=== PATIENT | female | born 1955 ===

== ENCOUNTER 2016-10-08 01:30 | Inpatient (IN) | payer MEDICAID ==
[2016-10-08 01:30] VITALS: BMI 42.7
[2016-10-08] MEDS ORDERED: Naloxone 0.4 mg/ml Inj (Adult) ONE (01:37)
--- NOTE | 2016-10-08 01:48 | C.PDOC ---
History Of Present Illness Patient is a 61 year old female brought in by EMS with altered mental status. Patient was reported to have had a headache earlier along with vomiting, as per family. Patient is agitated and kicking in the ER. Patient has not verbalized any physical complaints at this time. Chief Complaint (Nursing): Altered Mental Status History Per: EMS, Family History/Exam Limitations: None Onset/Duration Of Symptoms: Hrs Current Symptoms Are (Timing): Still Present Usual Baseline: Unknown Exacerbating Factor(s): Unknown Use Of Anticoag/Antiplatelets: Unknown Speech Is: Normal Recent travel outside of the [place]: No Associated Symptoms: Confused, Agitated Past Medical History Reviewed: Historical Data, Nursing Documentation, Vital Signs Vital Signs: Last Vital Signs Temp Pulse 126 H 10/08/16 01:30 Resp 28 H 10/08/16 01:30 BP 168/70 H 10/08/16 01:30 Pulse Ox 88 L 10/08/16 05:45 - Medical History PMH: Anemia, Anxiety, Arthritis, Asthma, CHF, COPD, Depression, Diabetes, HTN, Hypercholesterolemia, Migraine Surgical History: ( x 1) - [facility] Procedures D & C NEC (10/03/14) INJECT/INFUSE NEC (03/03/13) INSPECTION OF BLADDER, ENDO (08/11/15) NEBULIZER THERAPY (03/03/13) RESECTION OF CERVIX, VIA NATURAL OR ARTIFICIAL OPENING (08/11/15) RESECTION OF UTERUS, VIA OPENING W PERC ENDO (08/11/15) ROBOTIC ASSISTED PROCEDURE OF TRUNK, PERC ENDO APPROACH (08/11/15) Family History: States: Unknown Family Hx - Social History Hx Tobacco Use: No Hx Alcohol Use: No Hx Substance Use: No Review Of Systems Constitutional: Negative for: Fever, Chills Gastrointestinal: Negative for: Nausea Neurological: Positive for: Altered Mental Status Physical Exam - Physical Exam Appears: Non-toxic, Agitated, Confused Skin: Normal Color, Warm, Dry Head: Atraumatic, Normacephalic Eye(s): bilateral: Normal Inspection, PERRL, EOMI Oral Mucosa: Moist Neck: Normal, Supple Chest: Symmetrical, No Tenderness Cardiovascular: Rhythm Regular, No Murmur Respiratory: Normal Breath Sounds, No Rales, No Rhonchi, No Wheezing Gastrointestinal/Abdominal: Soft, No Tenderness Extremity: Normal ROM (x4), No Tenderness, No Deformity, No Swelling Neurological/Psych: Normal Motor, Normal Sensation ED Course And Treatment - Laboratory Results Result Diagrams: 10/08/16 03:29 10/08/16 03:29 Lab Interpretation: Abnormal Interpretation Of Abnormal: marked leucocytosis Urine POC: Negative ECG: Interpreted By Me, Viewed By Me ECG Rhythm: Sinus Tachycardia, Nonspecific Changes ECG Interpretation: No Acute Changes, Abnormal Interpretation Of ECG: Sinus tachycardia, non-spc. St-T changes, abnormal tracings. Rate From EC O2 Sat by Pulse Oximetry: 88 Pulse Ox Interpretation: Abnormal - CT Scan/US Head CT w/o contrast Other Rad Studies (CT/US): Read By Radiologist, Radiology Report Reviewed CT/US Interpretation: IMPRESSION: 1. No definite acute intracranial abnormality. Acute infarction may be CT occult within first 24 hours. If a focal deficit persists, consider followup CT or MRI for further evaluation. 2. Sinus disease. 3. Incidental/non-acute findings are described above. CT chest w/o contrast Other Rad Studies (CT/US): Read By Radiologist, Radiology Report Reviewed CT/US Interpretation: IMPRESSION: 1. Dependent atelectasis. Superimposed pneumonia not excluded. 2. Incidental/non-acute findings are described above. CT abd/pel w/o contrast Other Rad Studies (CT/US): Read By Radiologist, Radiology Report Reviewed CT/US Interpretation: IMPRESSION: 1. Diverticulosis without definite CT evidence of diverticulitis. 2. Cirrhosis. 3. Gallstones. 4. Kidney lesion, indeterminate. Recommend nonemergent ultrasound or MRI. 5. Incidental/non- acute findings are described above. Progress Note: CT of head w/o contrast, CT chest w/o contrast, CT abd/pel w/o contrast and CXR ordered. Intubation attempted with success, Anesthesia was called for assistance. ET tube began to leak, intubation was attempted again with success. Discussed with Dr. Goldstein, agreed to admit patient to ICU. NIHSS Stroke Scale - Date/Time Evaluation Performed Date Performed: 10/08/16 Time Performed: 01:40 When Was NIHSS Performed: Baseline - How Severe is the Stoke Level of Consciousness: 1=Drowsy LOC to Questions: 2=Neither correct LOC to commands: 2=Neither correct Visual: 0=No visual loss Facial: 0=Normal Motor Arm - Left: 0=No drift Motor Arm - Right: 0=No drift Motor Leg - Left: 0=No drift Motor Leg - Right: 0=No drift Limb Ataxia: 0=Absent Sensory: 0=Normal Best Language: 0=No aphasia Dysarthia: 2=Severe, near unintelligible or worse Extinction & Inattention (Neglect): 0=Normal, no object Severity Of Stroke: 0= No Stroke Disposition Discussed With DrEmily: Be Goldstein Jr. Doctor Will See Patient In The: Hospital Counseled Patient/Family Regarding: Diagnosis - Disposition Disposition: HOSPITALIZED Disposition Time: 05:43 Condition: CRITICAL - POA Present On Arrival: None - Clinical Impression Clinical Impression: Sepsis, Pneumonia, Acute confusional state - Scribe Statement The provider has reviewed the documentation as recorded by the Scribjaney Bradford All medical record entries made by the Rachelibjaney were at my direction and personally dictated by me. I have reviewed the chart and agree that the record accurately reflects my personal performance of the history, physical exam, medical decision making, and the department course for this patient. I have also personally directed, reviewed, and agree with the discharge instructions and disposition.
[2016-10-08] MEDS ORDERED: Propofol 10 mg/ml Inj (20 ML) ONE ×2 (02:22→02:46)
[2016-10-08] MEDS ORDERED: Propofol 10 mg/ml Inj (20 ML) IVP ONE ×3 (02:47→04:39)
[2016-10-08 03:26] LABS: CHLORIDE 98 mmol/L (98-107)
[2016-10-08 03:27] LABS: SODIUM 138 mmol/L (132-148)
[2016-10-08 03:28] LABS: BASO # 0.1 K/uL (0.0-0.2); BASO % 0.5 % (0.0-2.0); EOS % 0.2 % (0.0-4.0); HEMATOCRIT 39.4 % (34.0-47.0); LYMPH # 2.1 K/uL (1.0-4.3); LYMPH % 8.4 % (20.0-40.0); MEAN CELL VOLUME 88.8 fL (81.0-99.0); MEAN CORPUSCULAR HEMOGLOBIN 29.3 pg (27.0-31.0); MEAN PLATELET VOLUME 8.8 fL (7.2-11.7); MONO % 4.3 % (0.0-10.0); PLATELET COUNT 291 K/uL (130-400); RED CELL DISTRIBUTION WIDTH 13.8 % (11.5-14.5); WHITE BLOOD COUNT 24.5 K/uL (4.8-10.8)
[2016-10-08 03:30] LABS: ALB/GLOB RATIO 1.1 (1.0-2.1); ALKALINE PHOSPHATASE 105 U/L (38-126); ALT/SGPT 40 U/L (9-52); AST/SGOT 82 U/L (14-36); BILIRUBIN,TOTAL 1.4 mg/dL (0.2-1.3); BLOOD UREA NITROGEN 29 mg/dL (7-17); CALCIUM 10.6 mg/dl (8.6-10.4); CARBON DIOXIDE 23 mmol/L (22-30); GFR AFRICAN-AMERICAN > 60; GLUCOSE,RANDOM 209 mg/dL (65-105); TOTAL PROTEIN 8.8 g/dL (6.3-8.3)
[2016-10-08 03:37] LABS: POTASSIUM 5.3 mmol/L (3.6-5.2)
[2016-10-08] MEDS ORDERED: cefTRIAXone IV 1 gm in Dextros 50 ML IVPB ONE (04:03)
[2016-10-08] MEDS ORDERED: Lidocaine 2% Jelly (Uro-Jet) ONE (04:07)
[2016-10-08] MEDS ORDERED: Sodium Chloride 0.9% 1,000 ML ONE ×2 (04:11→04:44)
[2016-10-08 04:31] LABS: VENOUS BLOOD GAS BASE EXCESS 1.4 mmol/L (0.0-2.0); VENOUS BLOOD GAS PCO2 52 mmHg (40-60); VENOUS BLOOD PH 7.34 (7.32-7.43)
[2016-10-08 04:31] LABS: RBC URINE 6 /hpf (0-3); URINE BILIRUBIN NEGATIVE (NEGATIVE); URINE BLOOD 1+ (NEGATIVE); URINE COLOR Yellow (YELLOW); URINE GLUCOSE (UA) 1+ mg/dL (Normal); URINE KETONE NEGATIVE (NEGATIVE); URINE LEUKOCYTE ESTERASE NEG Leu/uL (Negative); URINE PROTEIN 1+ mg/dL (NEGATIVE); URINE UROBILINOGEN NORMAL mg/dL (0.2-1.0); WBC URINE 2 /hpf (0-5)
[2016-10-08 04:35] LABS: EOSINOPHIL 1 % (0-4); NEUTROPHIL 84 % (50-75); TOTAL CELLS COUNTED 100
[2016-10-08] MEDS ORDERED: Propofol 10 mg/ml 1,000 MG/100 ML VIAL ONE (04:37)
--- NOTE | 2016-10-08 05:13 | CT ---
EXAM: CT Head Without Intravenous Contrast CLINICAL HISTORY: 61 years old, female; Pain and signs and symptoms; Altered mental status/memory loss and other: Vomiting and gi bleed, unresponding; Headache TECHNIQUE: Axial computed tomography images of the head/brain without intravenous contrast. This CT exam was performed using one or more of the following dose reduction techniques: automated exposure control, adjustment of the mA and/or kV according to patient size, and/or use of iterative reconstruction technique. COMPARISON: No relevant prior studies available. FINDINGS: Limitations: Motion artifact - mild. Brain: No definite intracranial hemorrhage. No mass. No definite edema. Ventricles: No hydrocephalus. Bones/joints: No acute fracture. Soft tissues: Unremarkable. Vasculature: Mild atherosclerotic disease of intracranial arteries. Sinuses: Near complete opacification of RIGHT frontal sinus. Scattered [id number] mucosal thickening of ethmoid sinuses. Scattered minimal mucosal thickening of remaining sinuses. RIGHT maxillary retention cyst. Mastoid air cells: No mastoid effusion. Orbits: Unremarkable as visualized. Tubes, lines and devices: Nasogastric tube. Endotracheal tube. IMPRESSION: 1. No definite acute intracranial abnormality. Acute infarction may be CT occult within first 24 hours. If a focal deficit persists, consider followup CT or MRI for further evaluation. 2. Sinus disease. 3. Incidental/non-acute findings are described above.
[2016-10-08] MEDS: Propofol 10 mg/ml 1,000 MG/100 ML VIAL IV PRN ×3 (05:15→15:10)
--- NOTE | 2016-10-08 05:26 | CT ---
EXAM: CT Chest Without Intravenous Contrast CLINICAL HISTORY: 61 years old, female; Pain and signs and symptoms; Vomiting; Abdominal pain; Other: Unrespond; Chest pain; Type not specified; Additional info: Vomiting/ gi bleed TECHNIQUE: Axial computed tomography images of the chest without intravenous contrast. This CT exam was performed using one or more of the following dose reduction techniques: automated exposure control, adjustment of the mA and/or kV according to patient size, and/or use of iterative reconstruction technique. Coronal and sagittal reformatted images were created and reviewed. COMPARISON: No relevant prior studies available. FINDINGS: Limitations: Lack of intravenous contrast. Motion artifact - mild. Lungs: [id number] consolidation with air bronchograms within posterior periphery of lower lobes with associated volume loss. Minimal peripheral consolidation within posterior periphery of RIGHT upper lobe. Pleural space: No pneumothorax. No significant effusion. Heart: Mild cardiomegaly. No significant pericardial effusion. Bones/joints: No acute fracture. Degenerative changes of shoulders and spine. Soft tissues: Unremarkable. Vasculature: Minimal atherosclerotic disease of aorta. Aorta: No aortic aneurysm. Lymph nodes: No pathologically enlarged lymph nodes. Tubes, lines and devices: Nasogastric tube. Endotracheal tube. IMPRESSION: 1. Dependent atelectasis. Superimposed pneumonia not excluded. 2. Incidental/non-acute findings are described above. EXAM: CT Abdomen and Pelvis Without Intravenous Contrast CLINICAL HISTORY: 61 years old, female; Pain and signs and symptoms; Vomiting; Abdominal pain; Other: Unrespond; Chest pain; Type not specified; Additional info: Vomiting/ gi bleed TECHNIQUE: Axial computed tomography images of the abdomen and pelvis without intravenous contrast. This CT exam was performed using one or more of the following dose reduction techniques: automated exposure control, adjustment of the mA and/or kV according to patient size, and/or use of iterative reconstruction technique. Coronal and sagittal reformatted images were created and reviewed. COMPARISON: No relevant prior studies available. FINDINGS: Limitations: Lack of intravenous contrast. ABDOMEN: Liver: Lobulated contour. Gallbladder and bile ducts: Calcified gallstones. No ductal dilation. Pancreas: Unremarkable. No ductal dilation. Spleen: Borderline splenomegaly. Small splenic calcification. Adrenals: No mass. Kidneys and ureters: LEFT renal cyst. 1.3 x 1.4 x 1.3 cm lesion within LEFT kidney, indeterminate by CT criteria. Punctate calculus within LEFT kidney. No hydronephrosis. Stomach and bowel: Scattered diverticula within colon. No associated inflammatory stranding. Segmental areas of underdistention of colon. No definite mural thickening. No obstruction. Appendix: No findings to suggest acute appendicitis. PELVIS: Bladder: Santiago catheter. Collapsed bladder, limiting evaluation. No stones. Reproductive: Hysterectomy. ABDOMEN and PELVIS: Intraperitoneal space: No significant fluid collection. No free air. Bones/joints: Degenerative changes of spine. No acute fracture. Soft tissues: Small to moderate umbilical hernia containing fat. Mild focal skin thickening with subjacent stranding RIGHT anterolateral abdominal wall. Vasculature: Minimal atherosclerotic disease. No abdominal aortic aneurysm. Lymph nodes: No pathologically enlarged lymph nodes. IMPRESSION: 1. Diverticulosis without definite CT evidence of diverticulitis. 2. Cirrhosis. 3. Gallstones. 4. Kidney lesion, indeterminate. Recommend nonemergent ultrasound or MRI. 5. Incidental/non-acute findings are described above.
[2016-10-08] MEDS ORDERED: Azithromycin 500mg/250ML NS 500 MG/250 ML BAG IV STA (05:28)
--- NOTE | 2016-10-08 05:40 | CP.PCM.HP ---
History of Present Illness - History of Present Illness History of Present Illness: CC: Altered mental status 61 F with PMH of Asthma, Htn, HLD, DM was brought in by EMS for AMS. Patient's son was present at bedside. Patient's son stated that he came home aroound 830 pm and patient was fine watching TV. He stated around 930 pm that the patient began to complain of headache and nausea. Around 1030 pm, the son woke up after falling asleep to his mother wrenching and dry heaving in the kitchen. When he walked into the kitchen, he saw her vomiting on herself incoherently. At that time, he called 911 and EMS shortly arrived to transport her to [facility]. ROS unobtainable due to AMS and intubation. PMD: Dr. Walters PMH: Asthma, Htn, HLD, DM, Meds: As per EMR Allergies: Codeine, morphine, Avelox, Niacin, Penicillin, Tramadol PSH: C section, D&C x 2, Hysterectomy FH: Mother had breast ca, stroke; Brother has DM Social: Denies smoking, alcohol, and illicit drug use Present on Admission - Present on Admission Any Indicators Present on Admission: No History of DVT/PE: No History of Uncontrolled Diabetes: No Urinary Catheter: No Decubitus Ulcer Present: No Review of Systems - Review of Systems Systems not reviewed;Unavailable: Altered Mental Status, Intubated Past Patient History - Infectious Disease Hx of Infectious Diseases: None - Tetanus Immunizations Tetanus Immunization: Unknown - Past Medical History & Family History Past Medical History?: Yes - Past Social History Smoking Status: Never Smoked - CARDIAC Hx Congestive Heart Failure: Yes Hx Hypercholesterolemia: Yes Hx Hypertension: Yes - PULMONARY Hx Asthma: Yes Hx Chronic Obstructive Pulmonary Disease (COPD): Yes - NEUROLOGICAL Hx Migraine: Yes - HEENT Hx HEENT Problems: Yes (Allergic Rhinitis) - RENAL Hx Chronic Kidney Disease: No - ENDOCRINE/METABOLIC Hx Endocrine Disorders: Yes Hx Diabetes Mellitus Type 2: Yes (FROM EMS) - HEMATOLOGICAL/ONCOLOGICAL Hx Anemia: Yes - INTEGUMENTARY Hx Dermatological Problems: No - MUSCULOSKELETAL/RHEUMATOLOGICAL Hx Arthritis: Yes - GASTROINTESTINAL Hx Gastrointestinal Disorders: No - GENITOURINARY/GYNECOLOGICAL Hx Genitourinary Disorders: No - PSYCHIATRIC Hx Anxiety: Yes Hx Depression: Yes Hx Substance Use: No - SURGICAL HISTORY Hx Surgeries: Yes Hx Section: Yes (FROM PRIOVIOUS CHART) Hx Dilation and Curettage: Yes (2013) Other/Comment: D&C (2013) - ANESTHESIA Hx Anesthesia: Yes Hx Anesthesia Reactions: No Hx Malignant Hyperthermia: No Meds Allergies/Adverse Reactions: Allergies Allergy/AdvReac Type Severity Reaction Status Date / Time moxifloxacin HCl Allergy Mild RASH Verified 10/08/16 05:04 [From Avelox] codeine Allergy RASH Verified 10/08/16 05:04 morphine AdvReac RASH Verified 10/08/16 05:04 niacin AdvReac ITCHING Verified 10/08/16 05:04 [From Niaspan Extended-Release] Penicillins AdvReac RASH Verified 10/08/16 05:04 tramadol AdvReac RASH Verified 10/08/16 05:04 Physical Exam - Constitutional Appears: Other (Intubated and sedated) - Head Exam Head Exam: ATRAUMATIC, NORMOCEPHALIC - Eye Exam Eye Exam: Normal appearance Pupil Exam: PERRL - ENT Exam ENT Exam: Mucous Membranes Dry - Neck Exam Neck exam: Positive for: Normal Inspection - Respiratory Exam Respiratory Exam: Rhonchi, Wheezes Additional comments: ET tube in place intubated and on vent support - Cardiovascular Exam Cardiovascular Exam: Tachycardia (131 bpm), REGULAR RHYTHM, +S1, +S2 - GI/Abdominal Exam GI & Abdominal Exam: Distended (mild), Normal Bowel Sounds, Soft - Extremities Exam Extremities exam: Positive for: normal capillary refill, pedal pulses present. Negative for: pedal edema - Neurological Exam Neurological exam: Altered - Psychiatric Exam Psychiatric exam: Flat Affect - Skin Skin Exam: Dry, Intact, Normal Color Results - Vital Signs Recent Vital Signs: Last Vital Signs Temp Pulse 126 H 10/08/16 01:30 Resp 28 H 10/08/16 01:30 BP 168/70 H 10/08/16 01:30 Pulse Ox 90 L 10/08/16 01:30 - Labs Result Diagrams: 10/08/16 03:29 10/08/16 03:29 Labs: Laboratory Results - last 24 hr 10/08/16 10/08/16 10/08/16 03:29 03:29 04:20 WBC 24.5 H RBC 4.44 Hgb 13.0 Hct 39.4 MCV 88.8 D MCH 29.3 MCHC 33.0 RDW 13.8 Plt Count 291 MPV 8.8 Neut % (Auto) 86.6 H Lymph % (Auto) 8.4 L [place] % (Auto) 4.3 Eos % (Auto) 0.2 Baso % (Auto) 0.5 Neut # 21.2 H Lymph # 2.1 [place] # 1.0 H Eos # 0.0 Baso # 0.1 Neutrophils % (Manual) 84 H Band Neutrophils % 4 H Lymphocytes % (Manual) 7 L Monocytes % (Manual) 4 Eosinophils % (Manual) 1 Platelet Estimate Normal pO2 VBG pH VBG pCO2 VBG HCO3 VBG Total CO2 VBG O2 Sat (Calc) VBG Base Excess VBG Potassium Glucose Lactate FiO2 PEEP Sodium 138 Potassium 5.3 H Chloride 98 Carbon Dioxide 23 Anion Gap 22 H BUN 29 H Creatinine 0.6 L Est GFR ( Amer) > 60 Est GFR (Non-Af Amer) > 60 Random Glucose 209 H Lactic Acid Calcium 10.6 H Total Bilirubin 1.4 H AST 82 H D ALT 40 Alkaline Phosphatase 105 Total Protein 8.8 H Albumin 4.7 Globulin 4.1 H Albumin/Globulin Ratio 1.1 Venous Blood Potassium Urine Color Yellow Urine Clarity Clear Urine pH 6.0 Ur Specific [place] 1.014 Urine Protein 1+ H Urine Glucose (UA) 1+ Urine Ketones Negative Urine Blood 1+ H Urine Nitrate Negative Urine Bilirubin Negative Urine Urobilinogen Normal Ur Leukocyte Esterase Neg Urine WBC (Auto) 2 Urine RBC (Auto) 6 H Ur Squamous Epith Cells 1 Urine Opiates Screen Urine Methadone Screen Ur Barbiturates Screen Ur Phencyclidine Scrn Ur Amphetamines Screen U Benzodiazepines Scrn U Oth Cocaine Metabols U Cannabinoids Screen 10/08/16 10/08/16 10/08/16 04:20 04:28 04:37 WBC RBC Hgb Hct MCV MCH MCHC RDW Plt Count MPV Neut % (Auto) Lymph % (Auto) [place] % (Auto) Eos % (Auto) Baso % (Auto) Neut # Lymph # [place] # Eos # Baso # Neutrophils % (Manual) Band Neutrophils % Lymphocytes % (Manual) Monocytes % (Manual) Eosinophils % (Manual) Platelet Estimate pO2 61 H VBG pH 7.34 VBG pCO2 52 VBG HCO3 25.8 VBG Total CO2 29.7 H VBG O2 Sat (Calc) 93.1 H VBG Base Excess 1.4 VBG Potassium 3.8 Glucose 193 H Lactate 2.7 H FiO2 100.0 PEEP 5 Sodium 140.0 Potassium Chloride 108.0 H Carbon Dioxide Anion Gap BUN Creatinine Est GFR ( Amer) Est GFR (Non-Af Amer) Random Glucose Lactic Acid 2.7 H Calcium Total Bilirubin AST ALT Alkaline Phosphatase Total Protein Albumin Globulin Albumin/Globulin Ratio Venous Blood Potassium 3.8 Urine Color Urine Clarity Urine pH Ur Specific [place] Urine Protein Urine Glucose (UA) Urine Ketones Urine Blood Urine Nitrate Urine Bilirubin Urine Urobilinogen Ur Leukocyte Esterase Urine WBC (Auto) Urine RBC (Auto) Ur Squamous Epith Cells Urine Opiates Screen Negative Urine Methadone Screen Negative Ur Barbiturates Screen Positive Ur Phencyclidine Scrn Negative Ur Amphetamines Screen Negative U Benzodiazepines Scrn Negative U Oth Cocaine Metabols Negative U Cannabinoids Screen Negative Assessment & Plan - Assessment and Plan (Free Text) Plan: 1. AMS Admit to ICU Intubated and on vent support Sedated CT head: No definite acute intracranial abnormality. Acute infarction may be CT occult within first 24 hours. If a focal deficit persists, consider followup CT or MRI for further evaluation. Sinus disease. Incidental/non-acute findings are described (see full report) CT abd/pelvis: Diverticulosis without definite CT evidence of diverticulitis. Cirrhosis. Gallstones. Kidney lesion, indeterminate. Recommend nonemergent ultrasound or MRI. Incidental/non-acute findings are described (see full report) Aspiration precautions Management as per ICU
[2016-10-08] MEDS ORDERED: Azithromycin 500mg/250ML NS 500 MG/250 ML BAG IVPB ONE (06:10)
--- NOTE | 2016-10-08 07:02 | CP.PCM.CON ---
History of Present Illness - History of Present Illness History of Present Illness: This is a 61 ear old female brought by EMS after found by son in the kitchen last night vomiting and incoherent. Intubated in the ER by anesthesia ( reintubated in ER for cuff leak). Unable toobtainany history. PMH: HTN DM Morbid obesity Hyperlipidemia FH: not relevant forthe case Allergies: codeine, morphine, avelox, niacin, PNC and tramadol Received ceftriaxone with ER with no reaction social: no smoking, alcohol or drugs pe: bp 108/56 mmhg, hr: 120 bpm, rr 20, O2 94% on 60% FiO2, fever of 101 F in ER morbidly obese female lying intubated intubated and sedated s1, s2 unable to auscultate lungs difficult to auscultate due to body habitus abdomen global, soft, unable to do deep palpation skin no openings a/p: acute respiratory failure most likely due to pneumonia, comes from home, received ceftriaxone an azithromycin, will give nebulizations, very good urine output, continue fluids. Will not start medications for bp at this time since bp controlled start feeds and regular insulin Past Patient History - Infectious Disease Hx of Infectious Diseases: None - Tetanus Immunizations Tetanus Immunization: Unknown - Past Medical History & Family History Past Medical History?: Yes - Past Social History Smoking Status: Never Smoked - CARDIAC Hx Congestive Heart Failure: Yes Hx Hypercholesterolemia: Yes Hx Hypertension: Yes - PULMONARY Hx Asthma: Yes Hx Chronic Obstructive Pulmonary Disease (COPD): Yes - NEUROLOGICAL Hx Migraine: Yes - HEENT Hx HEENT Problems: Yes (Allergic Rhinitis) - RENAL Hx Chronic Kidney Disease: No - ENDOCRINE/METABOLIC Hx Endocrine Disorders: Yes Hx Diabetes Mellitus Type 2: Yes (FROM EMS) - HEMATOLOGICAL/ONCOLOGICAL Hx Anemia: Yes - INTEGUMENTARY Hx Dermatological Problems: No - MUSCULOSKELETAL/RHEUMATOLOGICAL Hx Arthritis: Yes - GASTROINTESTINAL Hx Gastrointestinal Disorders: No - GENITOURINARY/GYNECOLOGICAL Hx Genitourinary Disorders: No - PSYCHIATRIC Hx Anxiety: Yes Hx Depression: Yes Hx Substance Use: No - SURGICAL HISTORY Hx Surgeries: Yes Hx Section: Yes (FROM PRIOVIOUS CHART) Hx Dilation and Curettage: Yes (2013) Other/Comment: D&C (2013) - ANESTHESIA Hx Anesthesia: Yes Hx Anesthesia Reactions: No Hx Malignant Hyperthermia: No Meds Allergies/Adverse Reactions: Allergies Allergy/AdvReac Type Severity Reaction Status Date / Time moxifloxacin HCl Allergy Mild RASH Verified 10/08/16 05:04 [From Avelox] codeine Allergy RASH Verified 10/08/16 05:04 morphine AdvReac RASH Verified 10/08/16 05:04 niacin AdvReac ITCHING Verified 10/08/16 05:04 [From Niaspan Extended-Release] Penicillins AdvReac RASH Verified 10/08/16 05:04 tramadol AdvReac RASH Verified 10/08/16 05:04 - Medications Medications: Current Medications Enoxaparin Sodium (Lovenox) 40 mg SC DAILY MINI Propofol (Diprivan) 1,000 mg in 100 mls @ 2.722 mls/hr IV .Q24H PRN; Protocol; 5 MCG/KG/MIN PRN Reason: TITRATE PER MD ORDER Last Admin: 10/08/16 05:15 Dose: 2.722 mls/hr Azithromycin (Zithromax 500mg In Ns Addvantage) 500 mg in 250 mls @ 166.667 mls /hr IV STAT STA Stop: 10/08/16 06:57 Last Admin: 10/08/16 06:18 Dose: 166.667 mls/hr Azithromycin 500 mg/ Sodium (Chloride) 250 mls @ 250 mls/hr IVPB DAILY MINI Ceftriaxone Sodium 1 gm/ (Sodium Chloride) 100 mls @ 100 mls/hr IVPB DAILY MINI Sodium Chloride (Sodium Chloride 0.9%) 1,000 mls @ 100 mls/hr IV .Q10H MINI Pantoprazole Sodium (Protonix Inj) 40 mg IVP DAILY MINI Results - Vital Signs Recent Vital Signs: Last Vital Signs Temp 101 F H 10/08/16 05:54 Pulse 131 H 10/08/16 05:54 Resp 24 10/08/16 05:54 BP 116/62 10/08/16 05:54 Pulse Ox 100 10/08/16 05:54 - Labs Result Diagrams: 10/08/16 03:29 10/08/16 03:29
[2016-10-08 07:19] LABS: CHLORIDE 101 mmol/L (98-107); SODIUM 139 mmol/L (132-148)
[2016-10-08 07:22] LABS: GFR AFRICAN-AMERICAN > 60
[2016-10-08 07:23] LABS: BLOOD UREA NITROGEN 27 mg/dL (7-17); CALCIUM 9.6 mg/dl (8.6-10.4); CARBON DIOXIDE 28 mmol/L (22-30); GLUCOSE,RANDOM 186 mg/dL (65-105); MAGNESIUM 1.3 mg/dL (1.6-2.3); PHOSPHOROUS 2.7 mg/dL (2.5-4.5)
[2016-10-08 07:30] LABS: ABG ALLEN TEST PO; ATERIAL BLOOD GAS PEEP 5; DRAW SITE RRA
--- NOTE | 2016-10-08 08:16 | CP.PCM.PN ---
Subjective - Date & Time of Evaluation Date of Evaluation: 10/08/16 Time of Evaluation: 02:30 - Subjective Subjective: 61 yof with PMH of DM,HTN,HLD, Asthma, Morbid obesity was BIBA with AMS,agitated , noticed to be vomiting coffee ground material. Patient was taken for head CT, by ED, was given Ativan for agitation,where her breathing became labored, tachypneic and was taken back to the ED. I was called to intubate this pt in the ED after Dr Yan tried to intubate her with Glydescope ,3 times , unsuccessfully, some propofol was given.When I arrived the patient was bagged by respiratory, BP 215/65,HR 140,sat 88%. Patient was propped up with blankets,oral airway inserted, jaw thrust, bagged by Ambu, saturation got up 99, intubated with Glydescope with 7.5 cuffed tube. Prior to the intubation 40 mg of propofol was given. ETCO2 was confirmed by EZ cap, tube secured at 22 cm at lip, intubation was atraumatic, mouth was clean at all times.Post intubation pt was stable, BP was 98/45, given 100 mcg of neosynephrine, BP got up to 118/65,sat 100%,HR 128. After an hour I was called for a cuff leak. Pt was reintubated over tube exchanger with 7.0 cuffed tube, uneventfully. CXR was ordered to confirm the position of the tube.Pt left in stable condition, saturating 99 and bp 140/75, HR 116.CXR ordered to confirm the position of the tube. Objective - Vital Signs/Intake and Output Vital Signs (last 24 hours): Temp Pulse Resp BP Pulse Ox 101.4 F H 127 H 24 142/71 98 10/08/16 06:42 10/08/16 06:58 10/08/16 06:58 10/08/16 06:58 10/08/16 06:58 Intake and Output: 10/08/16 10/08/16 06:59 18:59 Intake Total 2600 Output Total 850 Balance 1750 - Medications Medications: Current Medications Enoxaparin Sodium (Lovenox) 40 mg SC DAILY MINI Propofol (Diprivan) 1,000 mg in 100 mls @ 2.722 mls/hr IV .Q24H PRN; Protocol; 5 MCG/KG/MIN PRN Reason: TITRATE PER MD ORDER Last Admin: 10/08/16 05:15 Dose: 2.722 mls/hr Azithromycin 500 mg/ Sodium (Chloride) 250 mls @ 250 mls/hr IVPB DAILY MINI Ceftriaxone Sodium 1 gm/ (Sodium Chloride) 100 mls @ 100 mls/hr IVPB DAILY MINI Sodium Chloride (Sodium Chloride 0.9%) 1,000 mls @ 100 mls/hr IV .Q10H MINI Pantoprazole Sodium (Protonix Inj) 40 mg IVP DAILY MINI - Labs Labs: 10/08/16 07:01
--- NOTE | 2016-10-08 08:31 | RAD ---
HISTORY: Post intubation bed 12 COMPARISON: 01/26/2015 FINDINGS: LUNGS: Endotracheal tube somewhat low lying approximately 1 centimeter above the pia. Repositioning may be helpful. NG tube extending into the stomach. Moderate to severe venous congestion with asymmetrical opacification of the left jaimie thorax. PLEURA: As above. CARDIOVASCULAR: Cardiomegaly. OSSEOUS STRUCTURES: Degenerative changes in the spine and shoulders. VISUALIZED UPPER ABDOMEN: Normal. OTHER FINDINGS: None. IMPRESSION: Endotracheal tube somewhat low lying approximately 1 centimeter above the pia. Repositioning may be helpful. NG tube extending into the stomach. Moderate to severe venous congestion with asymmetrical opacification of the left jaimie thorax.
--- NOTE | 2016-10-08 08:33 | RAD ---
HISTORY: post intubation bed 12 COMPARISON: 10/08/2016 FINDINGS: LUNGS: Endotracheal tube extending into the mid thoracic trachea. NG tube extending into the stomach. Mild venous congestion. Bilateral hilar prominence. Patchy bibasilar airspace opacities. Biapical pleural thickening with upper lobe granulomatous changes. PLEURA: As above. CARDIOVASCULAR: Cardiomegaly. OSSEOUS STRUCTURES: Degenerative changes in the spine and shoulders. VISUALIZED UPPER ABDOMEN: Normal. OTHER FINDINGS: None. IMPRESSION: Endotracheal tube extending into the mid thoracic trachea. NG tube extending into the stomach. Mild venous congestion. Bilateral hilar prominence. Patchy bibasilar airspace opacities. Biapical pleural thickening with upper lobe granulomatous changes.
[2016-10-08] MEDS: Magnesium Sulfate 1 gm in D5W 1 GM/100 ML BAG IVPB SCH ×2 (08:42→10:26)
[2016-10-08] MEDS ORDERED: Enoxaparin 40 mg Syringe SC SCH (10:00)
--- NOTE | 2016-10-08 11:23 | PCM.SEPTIC ---
Sepsis Progress Note - Reassessment Type Date of Evaluation: 10/08/16 Time of Evaluation: 08:00 Reassessment Type: Non-invasive reassessment - Non Invasive Reassessment Were the most recent vital sign reviewed: Yes Vital Sign (Latest): Temp Pulse Resp BP Pulse Ox 97.2 F L 119 H 25 H 106/49 L 94 L 10/08/16 08:00 10/08/16 10:50 10/08/16 10:50 10/08/16 10:17 10/08/16 10:50 Cardiovascular: Yes: Tachycardia Respiratory: Yes: Rhonchi, Other (intubated) Capillary Refill: Normal (Less than 2 sec) Skin: Warm, Dry - Invasive Reassessment (complete 2 of 4) Was a Central Venous Pressure Measurement obtained within 6 Hours after the presentation of septic shock: No Was a central venous oxygen measurement obtained within 6 hours after the presentation of septic shock: No Was a bedside cardiovascular ultrasound performed within 6 hours after the presentation of septic shock: No Was a passive leg raise performed or was a fluid challenge performed within 6 hrs of the initial fluid bolus: No
[2016-10-08] MEDS: Sodium Chloride 0.9% 1,000 ML IV SCH ×3 (11:29→17:18)
[2016-10-08] MEDS ORDERED: Iodixanol 320 MG/ML 100 ML BOTTLE IV ONE (16:00)
--- NOTE | 2016-10-08 17:30 | CT ---
PROCEDURE: CT Chest with contrast (Pulmonary Angiogram) HISTORY: r/o PE COMPARISON: 10/08/2016 TECHNIQUE: Axial computed tomography images were obtained of the chest in the pulmonary arterial phase of enhancement. Coronal and sagittal reformatted images were created and reviewed. Intravenous contrast dose: Radiation dose: Total exam DLP = mGy-cm. This CT exam was performed using one or more of the following dose reduction techniques: Automated exposure control, adjustment of the mA and/or kV according to patient size, and/or use of iterative reconstruction technique. Intravenous contrast dose: 100 cc of Omnipaque 300 Radiation dose: Total exam DLP = 563 mGy-cm. FINDINGS: PULMONARY ARTERIES: Unremarkable. No pulmonary embolism. AORTA: No acute findings. No thoracic aortic aneurysm. LUNGS: Bibasilar consolidation is present. PLEURAL SPACES: Unremarkable. No effusion or pneuomothorax. HEART: Unremarkable. No cardiomegaly. No significant pericardial effusion. LYMPH NODES: No lymphadenopathy. BONES, CHEST WALL: Unremarkable. No fracture or destructive lesion OTHER FINDINGS: ETT is above the pia. NG tube is in the stomach. IMPRESSION: Extensive bibasilar consolidation. No evidence of pulmonary embolism.
[2016-10-08] MEDS ORDERED: (Novolin R) Insulin Human Regular 100 units/ml vial SC SCH (21:15)
[2016-10-09] MEDS: (Novolin R) Insulin Human Regular 100 units/ml vial SC SCH ×5 (00:30→23:56)
[2016-10-09] MEDS: Acetaminophen 650mg/20.3ml solution UD NG PRN ×3 (01:05→19:47)
[2016-10-09] MEDS: Propofol 10 mg/ml 1,000 MG/100 ML VIAL IV PRN ×2 (01:22→01:28)
[2016-10-09] MEDS: Sodium Chloride 0.9% 1,000 ML IV SCH ×3 (01:27→17:43)
[2016-10-09 05:45] LABS: ABG ALLEN TEST POS; ABG MECHANICAL RATE 14; ARTERIAL BLOOD HGB O2 SAT 95.9 % (95.0-98.0); ATERIAL BLOOD GAS PEEP 5; CARBOXYHEMOGLOBIN 1.2 % (0.5-1.5); DRAW SITE LR; HHB 1.8 % (0.0-5.0); METHEMOGLOBIN 1.1 % (0.0-3.0)
[2016-10-09 06:48] LABS: CHLORIDE 104 mmol/L (98-107); POTASSIUM 4.1 mmol/L (3.6-5.2); SODIUM 138 mmol/L (132-148)
[2016-10-09 06:50] LABS: AST/SGOT 32 U/L (14-36); BILIRUBIN,TOTAL 0.9 mg/dL (0.2-1.3); CARBON DIOXIDE 25 mmol/L (22-30); GFR AFRICAN-AMERICAN > 60
[2016-10-09 06:51] LABS: ALKALINE PHOSPHATASE 106 U/L (38-126); ALT/SGPT 33 U/L (9-52); BLOOD UREA NITROGEN 23 mg/dL (7-17); CALCIUM 9.3 mg/dl (8.6-10.4); GLUCOSE,RANDOM 366 mg/dL (65-105); PHOSPHOROUS 2.1 mg/dL (2.5-4.5); TOTAL PROTEIN 6.9 g/dL (6.3-8.3)
[2016-10-09 06:52] LABS: MAGNESIUM 2.2 mg/dL (1.6-2.3)
--- NOTE | 2016-10-09 07:47 | CARD ---
APPROVED REPORT EXAM: Two-dimensional and M-mode echocardiogram with Doppler and color Doppler. Other Information Quality : GoodRhythm : NSR INDICATION eval for right heart strain and lv, acute comfusional sepsi pneumonia RISK FACTORS Hypertension Hyperlipidemia Diabetes 2D DIMENSIONS LVOT Diameter1.6 (1.8-2.4cm) M-Mode DIMENSIONS Left Atrium (MM)4.26 (2.5-4.0cm)IVSd1.22 (0.7-1.1cm) Aortic Root3.05 (2.2-3.7cm)LVDd6.23 (4.0-5.6cm) Aortic Cusp Exc.1.41 (1.5-2.0cm)PWd1.29 (0.7-1.1cm) FS (%) 31 %LVDs4.28 (2.0-3.8cm) LVEF (%)58 (>50%) Aortic Valve AoV Peak Dihezsij852.5cm/sAoV VTI34.5cmAO Peak GR.20mmHg LVOT Peak Fjnalhrp794.8cm/sLVOT VTI28.44cmAO Mean GR.9mmHg REGAN (VMAX)1.37lb9CWI (VTI)1.66cm2 Mitral Valve MV E Nkmsqgao641.8cm/sMV A Sukjzjgz265.4cm/sE/A ratio0.7 TDI E/Lateral E'0.0E/Medial E'0.0 Tricuspid Valve TR Peak Gdpargsk591rk/sTR Peak Gr.05qfVgWLYV74luAn LEFT VENTRICLE The Left Ventricle is moderately dilated. There is moderate concentric left ventricular hypertrophy. The left ventricular function is normal. The left ventricular ejection fraction is within the normal range. The Ejection Fraction is >55%. No regional wall motion abnormalities noted. The left ventricular diastolic function is normal. No left ventricle thrombus noted on this study. There is no ventricular septal defect visualized. There is no left ventricular aneurysm. There is no mass noted in the left ventricle. RIGHT VENTRICLE The right ventricle is normal size. There is normal right ventricular wall thickness. The right ventricular systolic function is normal. ATRIA The left atrium is mildly dilated. The right atrium size is normal. The interatrial septum is intact with no evidence for an atrial septal defect. AORTIC VALVE The aortic valve is normal in structure and function. There is trace aortic regurgitation. There is no aortic valvular stenosis. There is no aortic valvular vegetation. MITRAL VALVE The mitral valve is normal in structure and function. There is no evidence of mitral valve prolapse. There is no mitral valve stenosis. There is no mitral valve regurgitation noted. TRICUSPID VALVE The tricuspid valve is normal in structure and function. There is trace tricuspid regurgitation. Right ventricular systolic pressure is estimated at less than 30 mmHg. There is no pulmonary hypertension. There is no tricuspid valve prolapse or vegetation. There is no tricuspid valve stenosis. PULMONIC VALVE The pulmonary valve is normal in structure and function. There is no pulmonic valvular regurgitation. There is no pulmonic valvular stenosis. GREAT VESSELS The aortic root is normal in size. The ascending aorta is normal in size. The pulmonary artery is normal. The IVC is normal in size and collapses >50% with inspiration. PERICARDIAL EFFUSION The pericardium appears normal. There is no pleural effusion. <Conclusion> The Left Ventricle is moderately dilated. There is moderate concentric left ventricular hypertrophy. The Ejection Fraction is >55%. The left atrium is mildly dilated. There is trace aortic regurgitation. There is trace tricuspid regurgitation. Right ventricular systolic pressure is estimated at less than 30 mmHg. There is no pulmonary hypertension.
[2016-10-09 08:05] LABS: BASO # 0.1 K/uL (0.0-0.2); BASO % 0.3 % (0.0-2.0); HEMATOCRIT 35.7 % (34.0-47.0); LYMPH # 1.9 K/uL (1.0-4.3); LYMPH % 8.2 % (20.0-40.0); MEAN CELL VOLUME 89.1 fL (81.0-99.0); MEAN CORPUSCULAR HEMOGLOBIN 29.4 pg (27.0-31.0); MEAN CORPUSCULAR HGB CONC 33.1 g/dL (33.0-37.0); MEAN PLATELET VOLUME 8.4 fL (7.2-11.7); MONO # 1.5 K/uL (0.0-0.8); MONO % 6.3 % (0.0-10.0); PLATELET COUNT 224 K/uL (130-400); RED CELL DISTRIBUTION WIDTH 13.8 % (11.5-14.5); WHITE BLOOD COUNT 23.4 K/uL (4.8-10.8)
--- NOTE | 2016-10-09 08:38 | RAD ---
HISTORY: follow up post intubation and temps COMPARISON: 10/08/2016 FINDINGS: LUNGS: Lines and tubes stable position. Left hilar prominence. Consolidative changes in the left hilar region and bilateral lung bases with trace bilateral pleural effusions. PLEURA: As above. CARDIOVASCULAR: Cardiomegaly. OSSEOUS STRUCTURES: Degenerative changes in the spine and shoulders. VISUALIZED UPPER ABDOMEN: Normal. OTHER FINDINGS: None. IMPRESSION: Lines and tubes stable position. Left hilar prominence. Consolidative changes in the left hilar region and bilateral lung bases with trace bilateral pleural effusions.
[2016-10-09 08:42] LABS: BASOPHIL 2 % (0-2); NEUTROPHIL 74 % (50-75); TOTAL CELLS COUNTED 100
[2016-10-09] MEDS: Azithromycin 500 MG in Sodium Chloride 0.9% 250 ML IVPB SCH (09:36)
[2016-10-09] MEDS: Vancomycin 1 gm/NS 200 ml 1 GM/200 ML BAG IVPB SCH ×2 (10:45→21:56)
--- NOTE | 2016-10-09 11:00 | CT ---
PROCEDURE: CT HEAD WITHOUT CONTRAST. HISTORY: ams COMPARISON: 10/08/2016 TECHNIQUE: Axial computed tomography images were obtained through the head/brain without intravenous contrast. Radiation dose: Total exam DLP = 1223.94 mGy-cm. This CT exam was performed using one or more of the following dose reduction techniques: Automated exposure control, adjustment of the mA and/or kV according to patient size, and/or use of iterative reconstruction technique. FINDINGS: HEMORRHAGE: No intracranial hemorrhage. BRAIN: No mass effect or edema. Patchy periventricular and deep white matter lucency consistent with chronic microvascular ischemic change. No evidence of acute infarct. . VENTRICLES: Unremarkable. No hydrocephalus. CALVARIUM: Unremarkable. PARANASAL SINUSES: Chronic frontal, ethmoid, sphenoid and right maxillary sinusitis. MASTOID AIR CELLS: Nonspecific, bilateral mastoid effusion. OTHER FINDINGS: None. IMPRESSION: No evidence of acute infarct. No intracranial mass or hemorrhage. Chronic microvascular white matter ischemic change. Chronic paranasal sinusitis. Nonspecific bilateral mastoid effusion.
--- NOTE | 2016-10-09 11:20 | CP.CCUPN ---
<Miguel Mendez - Last Filed: 10/09/16 10:49> CCU Subjective - Physician Review Subjective (Free Text): 10/09/16 10:49 PGY-1 ICU progress note Pt seen and examined at bedside. Febrile overnight. Off sedation this morning but non-responsive. Cough reflex intact with suctioning. Pt still intubated. Critical Care Time Spent (in minutes): 35 CCU Objective - Vital Signs / Intake & Output Vital Signs (Last 4 hours): Vital Signs Temp Pulse Resp BP Pulse Ox 10/09/16 10:40 101 H 22 99 10/09/16 10:30 101 H 22 100 10/09/16 10:20 100 H 18 100 10/09/16 10:19 101 H 15 156/77 H 100 10/09/16 10:15 102 H 18 10/09/16 09:50 101 H 22 96 10/09/16 09:40 101 H 17 96 10/09/16 09:39 102 H 18 158/79 H 96 10/09/16 09:30 91 H 24 96 10/09/16 09:20 101 H 21 97 10/09/16 09:10 102 H 18 96 10/09/16 09:05 109 H 31 H 187/88 H 96 10/09/16 09:00 101 H 16 95 10/09/16 08:59 109 H 30 H 187/87 H 96 10/09/16 08:50 108 H 29 H 96 10/09/16 08:40 99 H 21 95 10/09/16 08:30 105 H 28 H 95 10/09/16 08:20 111 H 30 H 96 10/09/16 08:10 108 H 27 H 98 10/09/16 08:05 109 H 29 H 167/89 H 97 10/09/16 08:00 100.8 F H 107 H 25 H 97 10/09/16 07:50 108 H 26 H 95 10/09/16 07:40 108 H 22 96 10/09/16 07:30 108 H 20 97 10/09/16 07:20 108 H 15 96 10/09/16 07:10 110 H 32 H 95 10/09/16 07:05 113 H 27 H 152/75 H 96 10/09/16 07:00 113 H 20 97 10/09/16 06:50 115 H 35 H 97 Intake and Output (Last 8hrs): Intake & Output 10/08/16 10/09/16 10/09/16 22:59 06:59 14:59 Intake Total 1295 1250 775 Output Total 535 490 475 Balance 760 760 300 Weight 233 lb 8 oz Intake: IV 200 100 Intake, IV Amount 960 915 655 Right Forearm 800 800 400 Right Hand 160 115 5 Right Proximal Port 250 Forearm Tube Feeding 135 235 120 Output: Urine 535 490 475 Urethral (Santiago) 535 490 475 - Physical Exam Head: Positive for: Atraumatic, Normocephalic Pupils: Positive for: Sluggish Mouth: Positive for: Moist Mucous Membranes Respiratory/Chest: Positive for: Rhonchi, Other (intubated) Cardiovascular: Positive for: Normal S1, S2, Tachycardic Abdomen: Positive for: Normal Bowel Sounds. Negative for: Distention Upper Extremity: Positive for: NORMAL PULSES, Neurovascularly Intact Lower Extremity: Positive for: NORMAL PULSES, Neurovascularly Intact Neurological: Positive for: Other (altered) Skin: Positive for: Warm, Dry - Medications Active Medications: Active Medications Generic Name Dose Route Start Last Admin Trade Name Freq PRN Reason Stop Dose Admin Acetaminophen 650 mg 10/09/16 00:41 10/09/16 06:01 Tylenol 650mg/20.3ml Solution Ud NG 650 mg Q6 PRN Administration FOR TEMP 101*F OR ABOVE Enoxaparin Sodium 40 mg 10/08/16 10:00 10/08/16 10:25 Lovenox SC 40 mg DAILY MINI Administration Propofol 1,000 mg in 100 mls @ 2.722 mls/hr 10/08/16 03:05 10/09/16 01:28 Diprivan IV 36.74 mcg/kg/min .Q24H PRN 19.998 mls/hr TITRATE PER MD ORDER Administration Protocol 5 MCG/KG/MIN Azithromycin 500 mg/ Sodium 250 mls @ 250 mls/hr 10/09/16 10:00 10/09/16 09: 36 Chloride IVPB 250 mls/hr DAILY MINI Administration Ceftriaxone Sodium 1 gm/ 100 mls @ 100 mls/hr 10/09/16 10:00 10/09/16 09:36 Sodium Chloride IVPB 100 mls/hr DAILY MINI Administration Sodium Chloride 1,000 mls @ 100 mls/hr 10/08/16 07:00 10/09/16 06:41 Sodium Chloride 0.9% IV Not Given .Q10H MINI Vancomycin/Sodium Chloride 1 gm in 200 mls @ 133.333 mls/hr 10/09/16 10:30 10:45 Vancocin IVPB 10/14/16 10:31 133.333 mls/hr Q12H MINI Administration Insulin Human Regular 0 unit 10/09/16 09:24 Novolin R SC Q6 MINI Protocol Pantoprazole Sodium 40 mg 10/08/16 10:00 10/09/16 09:36 Protonix Inj IVP 40 mg DAILY MINI Administration - Patient Studies Lab Studies: Lab Studies 10/09/16 10/09/16 10/09/16 Range/Units 07:53 06:17 05:27 WBC 23.4 H (4.8-10.8) K/uL RBC 4.01 (3.80-5.20) Mil/uL Hgb 11.8 (11.0-16.0) g/dL Hct 35.7 (34.0-47.0) % MCV 89.1 (81.0-99.0) fL MCH 29.4 (27.0-31.0) pg MCHC 33.1 (33.0-37.0) g/dL RDW 13.8 (11.5-14.5) % Plt Count 224 (130-400) K/uL MPV 8.4 (7.2-11.7) fL Neut % (Auto) 85.2 H (50.0-75.0) % Lymph % (Auto) 8.2 L (20.0-40.0) % Stafford % (Auto) 6.3 (0.0-10.0) % Eos % (Auto) 0.0 (0.0-4.0) % Baso % (Auto) 0.3 (0.0-2.0) % Neut # 20.0 H (1.8-7.0) K/uL Lymph # 1.9 (1.0-4.3) K/uL Stafford # 1.5 H (0.0-0.8) K/uL Eos # 0.0 (0.0-0.7) K/uL Baso # 0.1 (0.0-0.2) K/uL Neutrophils % (Manual) 74 (50-75) % Band Neutrophils % 11 H* (0-2) % Lymphocytes % (Manual) 6 L (20-40) % Monocytes % (Manual) 7 (0-10) % Basophils % (Manual) 2 (0-2) % Toxic Granulation Present Dohle Bodies Present Platelet Estimate Normal (NORMAL) RBC Morphology Normal D-Dimer, Quantitative (0-243) ng/mlDDU Puncture Site pCO2 (35-45) mm/Hg pO2 (80-100) mm/Hg HCO3 (21-28) mmol/L ABG pH (7.35-7.45) ABG Total CO2 (22-28) mmol/L ABG O2 Saturation (95-98) % ABG Base Excess (-2.0-3.0) mmol/L ABG Hemoglobin (11.7-17.4) g/dL ABG Carboxyhemoglobin (0.5-1.5) % POC ABG HHb (Measured) (0.0-5.0) % ABG Methemoglobin (0.0-3.0) % Nico Test A-a O2 Difference mm/Hg Respiratory Index Hgb O2 Saturation (95.0-98.0) % Mechanical Rate FiO2 % Tidal Volume PEEP Sodium 138 (132-148) mmol/L Potassium 4.1 (3.6-5.2) mmol/L Chloride 104 (98-107) mmol/L Carbon Dioxide 25 (22-30) mmol/L Anion Gap 14 (10-20) BUN 23 H (7-17) mg/dL Creatinine 0.7 (0.7-1.2) MG/DL Est GFR ( Amer) > 60 Est GFR (Non-Af Amer) > 60 POC Glucose (mg/dL) 365 H (65-110) mg/dL Random Glucose 366 H (65-105) mg/dL Calcium 9.3 (8.6-10.4) mg/dl Phosphorus 2.1 L (2.5-4.5) mg/dL Magnesium 2.2 (1.6-2.3) mg/dL Total Bilirubin 0.9 (0.2-1.3) mg/dL AST 32 (14-36) U/L ALT 33 (9-52) U/L Alkaline Phosphatase 106 (38-126) U/L Total Creatine Kinase (30-135) U/L CK-MB (Mass) (0.0-3.38) ng/mL Troponin I, Quant (0.00-0.120) ng/mL Total Protein 6.9 (6.3-8.3) g/dL Albumin 3.4 L D (3.5-5.0) g/dL Globulin 3.5 (2.2-3.9) gm/dL Albumin/Globulin Ratio 1.0 (1.0-2.1) 10/09/16 10/09/16 10/08/16 Range/Units 05:20 00:58 10:45 WBC (4.8-10.8) K/uL RBC (3.80-5.20) Mil/uL Hgb (11.0-16.0) g/dL Hct (34.0-47.0) % MCV (81.0-99.0) fL MCH (27.0-31.0) pg MCHC (33.0-37.0) g/dL RDW (11.5-14.5) % Plt Count (130-400) K/uL MPV (7.2-11.7) fL Neut % (Auto) (50.0-75.0) % Lymph % (Auto) (20.0-40.0) % Stafford % (Auto) (0.0-10.0) % Eos % (Auto) (0.0-4.0) % Baso % (Auto) (0.0-2.0) % Neut # (1.8-7.0) K/uL Lymph # (1.0-4.3) K/uL Stafford # (0.0-0.8) K/uL Eos # (0.0-0.7) K/uL Baso # (0.0-0.2) K/uL Neutrophils % (Manual) (50-75) % Band Neutrophils % (0-2) % Lymphocytes % (Manual) (20-40) % Monocytes % (Manual) (0-10) % Basophils % (Manual) (0-2) % Toxic Granulation Dohle Bodies Platelet Estimate (NORMAL) RBC Morphology D-Dimer, Quantitative 1291 H (0-243) ng/mlDDU Puncture Site Lr pCO2 44 (35-45) mm/Hg pO2 99 (80-100) mm/Hg HCO3 26.4 (21-28) mmol/L ABG pH 7.40 (7.35-7.45) ABG Total CO2 28.7 H (22-28) mmol/L ABG O2 Saturation 98.2 H (95-98) % ABG Base Excess 2.0 (-2.0-3.0) mmol/L ABG Hemoglobin 14.3 (11.7-17.4) g/dL ABG Carboxyhemoglobin 1.2 (0.5-1.5) % POC ABG HHb (Measured) 1.8 (0.0-5.0) % ABG Methemoglobin 1.1 (0.0-3.0) % Nico Test Pos A-a O2 Difference 274.0 mm/Hg Respiratory Index 2.8 Hgb O2 Saturation 95.9 (95.0-98.0) % Mechanical Rate 14 FiO2 60.0 % Tidal Volume 500 PEEP 5 Sodium (132-148) mmol/L Potassium (3.6-5.2) mmol/L Chloride (98-107) mmol/L Carbon Dioxide (22-30) mmol/L Anion Gap (10-20) BUN (7-17) mg/dL Creatinine (0.7-1.2) MG/DL Est GFR ( Amer) Est GFR (Non-Af Amer) POC Glucose (mg/dL) 388 H (65-110) mg/dL Random Glucose (65-105) mg/dL Calcium (8.6-10.4) mg/dl Phosphorus (2.5-4.5) mg/dL Magnesium (1.6-2.3) mg/dL Total Bilirubin (0.2-1.3) mg/dL AST (14-36) U/L ALT (9-52) U/L Alkaline Phosphatase (38-126) U/L Total Creatine Kinase (30-135) U/L CK-MB (Mass) (0.0-3.38) ng/mL Troponin I, Quant (0.00-0.120) ng/mL Total Protein (6.3-8.3) g/dL Albumin (3.5-5.0) g/dL Globulin (2.2-3.9) gm/dL Albumin/Globulin Ratio (1.0-2.1) // Range/Units 10:45 WBC (4.8-10.8) K/uL RBC (3.80-5.20) Mil/uL Hgb (11.0-16.0) g/dL Hct (34.0-47.0) % MCV (81.0-99.0) fL MCH (27.0-31.0) pg MCHC (33.0-37.0) g/dL RDW (11.5-14.5) % Plt Count (130-400) K/uL MPV (7.2-11.7) fL Neut % (Auto) (50.0-75.0) % Lymph % (Auto) (20.0-40.0) % Stafford % (Auto) (0.0-10.0) % Eos % (Auto) (0.0-4.0) % Baso % (Auto) (0.0-2.0) % Neut # (1.8-7.0) K/uL Lymph # (1.0-4.3) K/uL Stafford # (0.0-0.8) K/uL Eos # (0.0-0.7) K/uL Baso # (0.0-0.2) K/uL Neutrophils % (Manual) (50-75) % Band Neutrophils % (0-2) % Lymphocytes % (Manual) (20-40) % Monocytes % (Manual) (0-10) % Basophils % (Manual) (0-2) % Toxic Granulation Dohle Bodies Platelet Estimate (NORMAL) RBC Morphology D-Dimer, Quantitative (0-243) ng/mlDDU Puncture Site pCO2 (35-45) mm/Hg pO2 (80-100) mm/Hg HCO3 (21-28) mmol/L ABG pH (7.35-7.45) ABG Total CO2 (22-28) mmol/L ABG O2 Saturation (95-98) % ABG Base Excess (-2.0-3.0) mmol/L ABG Hemoglobin (11.7-17.4) g/dL ABG Carboxyhemoglobin (0.5-1.5) % POC ABG HHb (Measured) (0.0-5.0) % ABG Methemoglobin (0.0-3.0) % Nico Test A-a O2 Difference mm/Hg Respiratory Index Hgb O2 Saturation (95.0-98.0) % Mechanical Rate FiO2 % Tidal Volume PEEP Sodium (132-148) mmol/L Potassium (3.6-5.2) mmol/L Chloride (98-107) mmol/L Carbon Dioxide (22-30) mmol/L Anion Gap (10-20) BUN (7-17) mg/dL Creatinine (0.7-1.2) MG/DL Est GFR ( Amer) Est GFR (Non-Af Amer) POC Glucose (mg/dL) (65-110) mg/dL Random Glucose (65-105) mg/dL Calcium (8.6-10.4) mg/dl Phosphorus (2.5-4.5) mg/dL Magnesium (1.6-2.3) mg/dL Total Bilirubin (0.2-1.3) mg/dL AST (14-36) U/L ALT (9-52) U/L Alkaline Phosphatase (38-126) U/L Total Creatine Kinase 64 (30-135) U/L CK-MB (Mass) 2.05 (0.0-3.38) ng/mL Troponin I, Quant 0.3030 H* (0.00-0.120) ng/mL Total Protein (6.3-8.3) g/dL Albumin (3.5-5.0) g/dL Globulin (2.2-3.9) gm/dL Albumin/Globulin Ratio (1.0-2.1) Laboratory Results - last 24 hr 10/08/16 10/08/16 10/09/16 10:45 10:45 00:58 WBC RBC Hgb Hct MCV MCH MCHC RDW Plt Count MPV Neut % (Auto) Lymph % (Auto) Stafford % (Auto) Eos % (Auto) Baso % (Auto) Neut # Lymph # Stafford # Eos # Baso # Neutrophils % (Manual) Band Neutrophils % Lymphocytes % (Manual) Monocytes % (Manual) Basophils % (Manual) Toxic Granulation Dohle Bodies Platelet Estimate RBC Morphology D-Dimer, Quantitative 1291 H Puncture Site pCO2 pO2 HCO3 ABG pH ABG Total CO2 ABG O2 Saturation ABG Base Excess ABG Hemoglobin ABG Carboxyhemoglobin POC ABG HHb (Measured) ABG Methemoglobin Nico Test A-a O2 Difference Respiratory Index Hgb O2 Saturation Mechanical Rate FiO2 Tidal Volume PEEP Sodium Potassium Chloride Carbon Dioxide Anion Gap BUN Creatinine Est GFR ( Amer) Est GFR (Non-Af Amer) POC Glucose (mg/dL) 388 H Random Glucose Calcium Phosphorus Magnesium Total Bilirubin AST ALT Alkaline Phosphatase Total Creatine Kinase 64 CK-MB (Mass) 2.05 Troponin I, Quant 0.3030 H* Total Protein Albumin Globulin Albumin/Globulin Ratio 10/09/16 10/09/16 10/09/16 05:20 05:27 06:17 WBC RBC Hgb Hct MCV MCH MCHC RDW Plt Count MPV Neut % (Auto) Lymph % (Auto) Stafford % (Auto) Eos % (Auto) Baso % (Auto) Neut # Lymph # Stafford # Eos # Baso # Neutrophils % (Manual) Band Neutrophils % Lymphocytes % (Manual) Monocytes % (Manual) Basophils % (Manual) Toxic Granulation Dohle Bodies Platelet Estimate RBC Morphology D-Dimer, Quantitative Puncture Site Lr pCO2 44 pO2 99 HCO3 26.4 ABG pH 7.40 ABG Total CO2 28.7 H ABG O2 Saturation 98.2 H ABG Base Excess 2.0 ABG Hemoglobin 14.3 ABG Carboxyhemoglobin 1.2 POC ABG HHb (Measured) 1.8 ABG Methemoglobin 1.1 Nico Test Pos A-a O2 Difference 274.0 Respiratory Index 2.8 Hgb O2 Saturation 95.9 Mechanical Rate 14 FiO2 60.0 Tidal Volume 500 PEEP 5 Sodium 138 Potassium 4.1 Chloride 104 Carbon Dioxide 25 Anion Gap 14 BUN 23 H Creatinine 0.7 Est GFR ( Amer) > 60 Est GFR (Non-Af Amer) > 60 POC Glucose (mg/dL) 365 H Random Glucose 366 H Calcium 9.3 Phosphorus 2.1 L Magnesium 2.2 Total Bilirubin 0.9 AST 32 ALT 33 Alkaline Phosphatase 106 Total Creatine Kinase CK-MB (Mass) Troponin I, Quant Total Protein 6.9 Albumin 3.4 L D Globulin 3.5 Albumin/Globulin Ratio 1.0 10/09/16 07:53 WBC 23.4 H RBC 4.01 Hgb 11.8 Hct 35.7 MCV 89.1 MCH 29.4 MCHC 33.1 RDW 13.8 Plt Count 224 MPV 8.4 Neut % (Auto) 85.2 H Lymph % (Auto) 8.2 L Stafford % (Auto) 6.3 Eos % (Auto) 0.0 Baso % (Auto) 0.3 Neut # 20.0 H Lymph # 1.9 Stafford # 1.5 H Eos # 0.0 Baso # 0.1 Neutrophils % (Manual) 74 Band Neutrophils % 11 H* Lymphocytes % (Manual) 6 L Monocytes % (Manual) 7 Basophils % (Manual) 2 Toxic Granulation Present Dohle Bodies Present Platelet Estimate Normal RBC Morphology Normal D-Dimer, Quantitative Puncture Site pCO2 pO2 HCO3 ABG pH ABG Total CO2 ABG O2 Saturation ABG Base Excess ABG Hemoglobin ABG Carboxyhemoglobin POC ABG HHb (Measured) ABG Methemoglobin Nico Test A-a O2 Difference Respiratory Index Hgb O2 Saturation Mechanical Rate FiO2 Tidal Volume PEEP Sodium Potassium Chloride Carbon Dioxide Anion Gap BUN Creatinine Est GFR ( Amer) Est GFR (Non-Af Amer) POC Glucose (mg/dL) Random Glucose Calcium Phosphorus Magnesium Total Bilirubin AST ALT Alkaline Phosphatase Total Creatine Kinase CK-MB (Mass) Troponin I, Quant Total Protein Albumin Globulin Albumin/Globulin Ratio Fingerstick Blood Sugar Results: 365 Review of Systems - Review of Systems Systems not reviewed;Unavailable: Intubated Assessment/Plan - Assessment and Plan (Free Text) Assessment: This is a 61 yo F with bacteremic sepsis and respiratory failure, secondary to likely pneumonia. 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 Plan: Neuro: Off sedation, unresponsive Initial Head CT negative, repeat is pending official read. Neuology consulted LP today Cardiovascular: Tachycardic but hemodynamically stable. Monitor Pulmonary: Intubated. Saturating well. Consolidative changes in the left hilar on CXR Continue azithromycin, rocephin and now vancomycin Gastrointestinal: No acute issues,on tube feeds, tolerating well. Hematology: No acute issues Endocrine: Sliding scale coverage. monitor Renal: NS at 100 cc/hr Monitor electrolytes Strict I/O - good urine output Infectious Disease: Persistent leukocytosis (with bandemia), elevated procalcitonin and febrile during the night Blood cultures positive for gram + cocci in chains F/U sensitivities Cont azithromycin, rocephin and now vancomycin LP today GI Prophylaxis: Protonix DVT Prophylaxis: Lovenox <Matteo Almanzar S - Last Filed: 10/09/16 17:50> CCU Subjective - Physician Review Critical Care Time Spent (in minutes): 45 CCU Objective - Vital Signs / Intake & Output Vital Signs (Last 4 hours): Vital Signs Temp Pulse Resp BP Pulse Ox 10/09/16 16:05 104 H 18 153/72 H 94 L 10/09/16 16:00 102.4 F H 10/09/16 15:06 115 H 30 H 177/86 H 96 10/09/16 14:05 108 H 21 136/65 96 Intake and Output (Last 8hrs): Intake & Output 10/09/16 10/09/16 10/09/16 06:59 14:59 22:59 Intake Total 1250 1395 260 Output Total 490 905 305 Balance 760 490 -45 Weight 233 lb 8 oz Intake: IV 100 Intake, IV Amount 915 1155 200 Right Forearm 800 900 200 Right Hand 115 5 Right Proximal Port 250 Forearm Tube Feeding 235 240 60 Output: Urine 490 905 305 Urethral (Santiago) 490 905 305 - Medications Active Medications: Active Medications Generic Name Dose Route Start Last Admin Trade Name Freq PRN Reason Stop Dose Admin Acetaminophen 650 mg 10/09/16 00:41 10/09/16 06:01 Tylenol 650mg/20.3ml Solution Ud NG 650 mg Q6 PRN Administration FOR TEMP 101*F OR ABOVE Enoxaparin Sodium 40 mg 10/09/16 17:30 10/09/16 17:42 Lovenox SC 40 mg DAILY MINI Administration Azithromycin 500 mg/ Sodium 250 mls @ 250 mls/hr 10/09/16 10:00 10/09/16 09: 36 Chloride IVPB 250 mls/hr DAILY MINI Administration Ceftriaxone Sodium 1 gm/ 100 mls @ 100 mls/hr 10/09/16 10:00 10/09/16 09:36 Sodium Chloride IVPB 100 mls/hr DAILY MINI Administration Vancomycin/Sodium Chloride 1 gm in 200 mls @ 133.333 mls/hr 10/09/16 10:30 10:45 Vancocin IVPB 10/14/16 10:31 133.333 mls/hr Q12H MINI Administration Sodium Chloride 1,000 mls @ 75 mls/hr 10/09/16 17:12 10/09/16 17:43 Sodium Chloride 0.9% IV 75 mls/hr .[id number] MINI Administration Insulin Human Regular 0 unit 10/09/16 09:24 10/09/16 12:57 Novolin R SC 8 unit Q6 MINI Administration Protocol Pantoprazole Sodium 40 mg 10/08/16 10:00 10/09/16 09:36 Protonix Inj IVP 40 mg DAILY MINI Administration - Patient Studies Lab Studies: Microbiology Studies 10/08/16 08:10 MRSA Culture (Admit) - Final Naris MRSA NOT DETECTED Lab Studies 10/09/16 10/09/16 10/09/16 Range/Units 12:53 12:51 11:21 WBC (4.8-10.8) K/uL RBC (3.80-5.20) Mil/uL Hgb (11.0-16.0) g/dL Hct (34.0-47.0) % MCV (81.0-99.0) fL MCH (27.0-31.0) pg MCHC (33.0-37.0) g/dL RDW (11.5-14.5) % Plt Count (130-400) K/uL MPV (7.2-11.7) fL Neut % (Auto) (50.0-75.0) % Lymph % (Auto) (20.0-40.0) % Stafford % (Auto) (0.0-10.0) % Eos % (Auto) (0.0-4.0) % Baso % (Auto) (0.0-2.0) % Neut # (1.8-7.0) K/uL Lymph # (1.0-4.3) K/uL Stafford # (0.0-0.8) K/uL Eos # (0.0-0.7) K/uL Baso # (0.0-0.2) K/uL Neutrophils % (Manual) (50-75) % Band Neutrophils % (0-2) % Lymphocytes % (Manual) (20-40) % Monocytes % (Manual) (0-10) % Basophils % (Manual) (0-2) % Toxic Granulation Dohle Bodies Platelet Estimate (NORMAL) RBC Morphology PT 16.5 H (9.7-12.2) SECONDS INR 1.4 APTT 39 H (21-34) SECONDS Puncture Site pCO2 (35-45) mm/Hg pO2 (80-100) mm/Hg HCO3 (21-28) mmol/L ABG pH (7.35-7.45) ABG Total CO2 (22-28) mmol/L ABG O2 Saturation (95-98) % ABG Base Excess (-2.0-3.0) mmol/L ABG Hemoglobin (11.7-17.4) g/dL ABG Carboxyhemoglobin (0.5-1.5) % POC ABG HHb (Measured) (0.0-5.0) % ABG Methemoglobin (0.0-3.0) % Nico Test A-a O2 Difference mm/Hg Respiratory Index Hgb O2 Saturation (95.0-98.0) % Mechanical Rate FiO2 % Tidal Volume PEEP Sodium (132-148) mmol/L Potassium (3.6-5.2) mmol/L Chloride (98-107) mmol/L Carbon Dioxide (22-30) mmol/L Anion Gap (10-20) BUN (7-17) mg/dL Creatinine (0.7-1.2) MG/DL Est GFR ( Amer) Est GFR (Non-Af Amer) POC Glucose (mg/dL) 349 H (65-110) mg/dL Random Glucose (65-105) mg/dL Calcium (8.6-10.4) mg/dl Phosphorus (2.5-4.5) mg/dL Magnesium (1.6-2.3) mg/dL Total Bilirubin (0.2-1.3) mg/dL AST (14-36) U/L ALT (9-52) U/L Alkaline Phosphatase (38-126) U/L Total Creatine Kinase 65 (30-135) U/L CK-MB (Mass) 0.60 (0.0-3.38) ng/mL Troponin I, Quant 0.0970 (0.00-0.120) ng/mL Total Protein (6.3-8.3) g/dL Albumin (3.5-5.0) g/dL Globulin (2.2-3.9) gm/dL Albumin/Globulin Ratio (1.0-2.1) 10/09/16 10/09/16 10/09/16 Range/Units 07:53 06:17 05:27 WBC 23.4 H (4.8-10.8) K/uL RBC 4.01 (3.80-5.20) Mil/uL Hgb 11.8 (11.0-16.0) g/dL Hct 35.7 (34.0-47.0) % MCV 89.1 (81.0-99.0) fL MCH 29.4 (27.0-31.0) pg MCHC 33.1 (33.0-37.0) g/dL RDW 13.8 (11.5-14.5) % Plt Count 224 (130-400) K/uL MPV 8.4 (7.2-11.7) fL Neut % (Auto) 85.2 H (50.0-75.0) % Lymph % (Auto) 8.2 L (20.0-40.0) % Stafford % (Auto) 6.3 (0.0-10.0) % Eos % (Auto) 0.0 (0.0-4.0) % Baso % (Auto) 0.3 (0.0-2.0) % Neut # 20.0 H (1.8-7.0) K/uL Lymph # 1.9 (1.0-4.3) K/uL Stafford # 1.5 H (0.0-0.8) K/uL Eos # 0.0 (0.0-0.7) K/uL Baso # 0.1 (0.0-0.2) K/uL Neutrophils % (Manual) 74 (50-75) % Band Neutrophils % 11 H* (0-2) % Lymphocytes % (Manual) 6 L (20-40) % Monocytes % (Manual) 7 (0-10) % Basophils % (Manual) 2 (0-2) % Toxic Granulation Present Dohle Bodies Present Platelet Estimate Normal (NORMAL) RBC Morphology Normal PT (9.7-12.2) SECONDS INR APTT (21-34) SECONDS Puncture Site pCO2 (35-45) mm/Hg pO2 (80-100) mm/Hg HCO3 (21-28) mmol/L ABG pH (7.35-7.45) ABG Total CO2 (22-28) mmol/L ABG O2 Saturation (95-98) % ABG Base Excess (-2.0-3.0) mmol/L ABG Hemoglobin (11.7-17.4) g/dL ABG Carboxyhemoglobin (0.5-1.5) % POC ABG HHb (Measured) (0.0-5.0) % ABG Methemoglobin (0.0-3.0) % Nico Test A-a O2 Difference mm/Hg Respiratory Index Hgb O2 Saturation (95.0-98.0) % Mechanical Rate FiO2 % Tidal Volume PEEP Sodium 138 (132-148) mmol/L Potassium 4.1 (3.6-5.2) mmol/L Chloride 104 (98-107) mmol/L Carbon Dioxide 25 (22-30) mmol/L Anion Gap 14 (10-20) BUN 23 H (7-17) mg/dL Creatinine 0.7 (0.7-1.2) MG/DL Est GFR ( Amer) > 60 Est GFR (Non-Af Amer) > 60 POC Glucose (mg/dL) 365 H (65-110) mg/dL Random Glucose 366 H (65-105) mg/dL Calcium 9.3 (8.6-10.4) mg/dl Phosphorus 2.1 L (2.5-4.5) mg/dL Magnesium 2.2 (1.6-2.3) mg/dL Total Bilirubin 0.9 (0.2-1.3) mg/dL AST 32 (14-36) U/L ALT 33 (9-52) U/L Alkaline Phosphatase 106 (38-126) U/L Total Creatine Kinase (30-135) U/L CK-MB (Mass) (0.0-3.38) ng/mL Troponin I, Quant (0.00-0.120) ng/mL Total Protein 6.9 (6.3-8.3) g/dL Albumin 3.4 L D (3.5-5.0) g/dL Globulin 3.5 (2.2-3.9) gm/dL Albumin/Globulin Ratio 1.0 (1.0-2.1) 10/09/16 10/09/16 Range/Units 05:20 00:58 WBC (4.8-10.8) K/uL RBC (3.80-5.20) Mil/uL Hgb (11.0-16.0) g/dL Hct (34.0-47.0) % MCV (81.0-99.0) fL MCH (27.0-31.0) pg MCHC (33.0-37.0) g/dL RDW (11.5-14.5) % Plt Count (130-400) K/uL MPV (7.2-11.7) fL Neut % (Auto) (50.0-75.0) % Lymph % (Auto) (20.0-40.0) % Stafford % (Auto) (0.0-10.0) % Eos % (Auto) (0.0-4.0) % Baso % (Auto) (0.0-2.0) % Neut # (1.8-7.0) K/uL Lymph # (1.0-4.3) K/uL Stafford # (0.0-0.8) K/uL Eos # (0.0-0.7) K/uL Baso # (0.0-0.2) K/uL Neutrophils % (Manual) (50-75) % Band Neutrophils % (0-2) % Lymphocytes % (Manual) (20-40) % Monocytes % (Manual) (0-10) % Basophils % (Manual) (0-2) % Toxic Granulation Dohle Bodies Platelet Estimate (NORMAL) RBC Morphology PT (9.7-12.2) SECONDS INR APTT (21-34) SECONDS Puncture Site Lr pCO2 44 (35-45) mm/Hg pO2 99 (80-100) mm/Hg HCO3 26.4 (21-28) mmol/L ABG pH 7.40 (7.35-7.45) ABG Total CO2 28.7 H (22-28) mmol/L ABG O2 Saturation 98.2 H (95-98) % ABG Base Excess 2.0 (-2.0-3.0) mmol/L ABG Hemoglobin 14.3 (11.7-17.4) g/dL ABG Carboxyhemoglobin 1.2 (0.5-1.5) % POC ABG HHb (Measured) 1.8 (0.0-5.0) % ABG Methemoglobin 1.1 (0.0-3.0) % Nico Test Pos A-a O2 Difference 274.0 mm/Hg Respiratory Index 2.8 Hgb O2 Saturation 95.9 (95.0-98.0) % Mechanical Rate 14 FiO2 60.0 % Tidal Volume 500 PEEP 5 Sodium (132-148) mmol/L Potassium (3.6-5.2) mmol/L Chloride (98-107) mmol/L Carbon Dioxide (22-30) mmol/L Anion Gap (10-20) BUN (7-17) mg/dL Creatinine (0.7-1.2) MG/DL Est GFR ( Amer) Est GFR (Non-Af Amer) POC Glucose (mg/dL) 388 H (65-110) mg/dL Random Glucose (65-105) mg/dL Calcium (8.6-10.4) mg/dl Phosphorus (2.5-4.5) mg/dL Magnesium (1.6-2.3) mg/dL Total Bilirubin (0.2-1.3) mg/dL AST (14-36) U/L ALT (9-52) U/L Alkaline Phosphatase (38-126) U/L Total Creatine Kinase (30-135) U/L CK-MB (Mass) (0.0-3.38) ng/mL Troponin I, Quant (0.00-0.120) ng/mL Total Protein (6.3-8.3) g/dL Albumin (3.5-5.0) g/dL Globulin (2.2-3.9) gm/dL Albumin/Globulin Ratio (1.0-2.1) Laboratory Results - last 24 hr 10/09/16 10/09/16 10/09/16 00:58 05:20 05:27 WBC RBC Hgb Hct MCV MCH MCHC RDW Plt Count MPV Neut % (Auto) Lymph % (Auto) Stafford % (Auto) Eos % (Auto) Baso % (Auto) Neut # Lymph # Stafford # Eos # Baso # Neutrophils % (Manual) Band Neutrophils % Lymphocytes % (Manual) Monocytes % (Manual) Basophils % (Manual) Toxic Granulation Dohle Bodies Platelet Estimate RBC Morphology PT INR APTT Puncture Site Lr pCO2 44 pO2 99 HCO3 26.4 ABG pH 7.40 ABG Total CO2 28.7 H ABG O2 Saturation 98.2 H ABG Base Excess 2.0 ABG Hemoglobin 14.3 ABG Carboxyhemoglobin 1.2 POC ABG HHb (Measured) 1.8 ABG Methemoglobin 1.1 Nico Test Pos A-a O2 Difference 274.0 Respiratory Index 2.8 Hgb O2 Saturation 95.9 Mechanical Rate 14 FiO2 60.0 Tidal Volume 500 PEEP 5 Sodium Potassium Chloride Carbon Dioxide Anion Gap BUN Creatinine Est GFR ( Amer) Est GFR (Non-Af Amer) POC Glucose (mg/dL) 388 H 365 H Random Glucose Calcium Phosphorus Magnesium Total Bilirubin AST ALT Alkaline Phosphatase Total Creatine Kinase CK-MB (Mass) Troponin I, Quant Total Protein Albumin Globulin Albumin/Globulin Ratio 10/09/16 10/09/16 10/09/16 06:17 07:53 11:21 WBC 23.4 H RBC 4.01 Hgb 11.8 Hct 35.7 MCV 89.1 MCH 29.4 MCHC 33.1 RDW 13.8 Plt Count 224 MPV 8.4 Neut % (Auto) 85.2 H Lymph % (Auto) 8.2 L Stafford % (Auto) 6.3 Eos % (Auto) 0.0 Baso % (Auto) 0.3 Neut # 20.0 H Lymph # 1.9 Stafford # 1.5 H Eos # 0.0 Baso # 0.1 Neutrophils % (Manual) 74 Band Neutrophils % 11 H* Lymphocytes % (Manual) 6 L Monocytes % (Manual) 7 Basophils % (Manual) 2 Toxic Granulation Present Dohle Bodies Present Platelet Estimate Normal RBC Morphology Normal PT INR APTT Puncture Site pCO2 pO2 HCO3 ABG pH ABG Total CO2 ABG O2 Saturation ABG Base Excess ABG Hemoglobin ABG Carboxyhemoglobin POC ABG HHb (Measured) ABG Methemoglobin Nico Test A-a O2 Difference Respiratory Index Hgb O2 Saturation Mechanical Rate FiO2 Tidal Volume PEEP Sodium 138 Potassium 4.1 Chloride 104 Carbon Dioxide 25 Anion Gap 14 BUN 23 H Creatinine 0.7 Est GFR ( Amer) > 60 Est GFR (Non-Af Amer) > 60 POC Glucose (mg/dL) Random Glucose 366 H Calcium 9.3 Phosphorus 2.1 L Magnesium 2.2 Total Bilirubin 0.9 AST 32 ALT 33 Alkaline Phosphatase 106 Total Creatine Kinase 65 CK-MB (Mass) 0.60 Troponin I, Quant 0.0970 Total Protein 6.9 Albumin 3.4 L D Globulin 3.5 Albumin/Globulin Ratio 1.0 10/09/16 10/09/16 12:51 12:53 WBC RBC Hgb Hct MCV MCH MCHC RDW Plt Count MPV Neut % (Auto) Lymph % (Auto) [place] % (Auto) Eos % (Auto) Baso % (Auto) Neut # Lymph # [place] # Eos # Baso # Neutrophils % (Manual) Band Neutrophils % Lymphocytes % (Manual) Monocytes % (Manual) Basophils % (Manual) Toxic Granulation Dohle Bodies Platelet Estimate RBC Morphology PT 16.5 H INR 1.4 APTT 39 H Puncture Site pCO2 pO2 HCO3 ABG pH ABG Total CO2 ABG O2 Saturation ABG Base Excess ABG Hemoglobin ABG Carboxyhemoglobin POC ABG HHb (Measured) ABG Methemoglobin [place] Test A-a O2 Difference Respiratory Index Hgb O2 Saturation Mechanical Rate FiO2 Tidal Volume PEEP Sodium Potassium Chloride Carbon Dioxide Anion Gap BUN Creatinine Est GFR ( Amer) Est GFR (Non-Af Amer) POC Glucose (mg/dL) 349 H Random Glucose Calcium Phosphorus Magnesium Total Bilirubin AST ALT Alkaline Phosphatase Total Creatine Kinase CK-MB (Mass) Troponin I, Quant Total Protein Albumin Globulin Albumin/Globulin Ratio Attending/Attestation - Attestation I have personally seen and examined this patient.: Yes I have fully participated in the care of the patient.: Yes I have reviewed all pertinent clinical information: Yes Notes (Text): 10/09/16 17:49 Patient seen and examined in the intensive care unit. Case discussed with house staff in the morning rounds. Remains intubated on ventilatory support Patient is off sedation and unresponsive Nephrology consulted and had repeat CAT scan of the head done Continue antibiotics for bacteremia Continue feeding
[2016-10-09 12:39] LABS: INR 1.4
--- NOTE | 2016-10-09 16:22 | CP.PCM.CON ---
History of Present Illness - History of Present Illness History of Present Illness: Mrs. Caraballo is a 61-year-old woman with a past medical history of asthma, HTN, HLD, DM, who was watching TV and then complained of headache, nausea at around 9 :30 PM yesterday. She was last normal at 8:30 PM. At around 10:30 PM, she started to dry heave and vomit. She then became incoherent and confused. EMS was called and the patient was brought to [facility] ED. She was intubated and sedated, initially for air way protection. Today, she is still intubated, but off sedation she continues to be unresponsive. Overnight, she was febrile to 101 F. Currently, she is afebrile, but does have elevated WBC. The history was obtained from nursing and the remainder of the staff since family was not available and the patient is unresponsive. Review of Systems - Review of Systems Systems not reviewed;Unavailable: Altered Mental Status, Intubated Past Patient History - Infectious Disease Hx of Infectious Diseases: None - Tetanus Immunizations Tetanus Immunization: Unknown - Past Medical History & Family History Past Medical History?: Yes - Past Social History Smoking Status: Never Smoked - CARDIAC Hx Congestive Heart Failure: Yes Hx Hypercholesterolemia: Yes Hx Hypertension: Yes - PULMONARY Hx Asthma: Yes Hx Chronic Obstructive Pulmonary Disease (COPD): Yes - NEUROLOGICAL Hx Migraine: Yes - HEENT Hx HEENT Problems: Yes (Allergic Rhinitis) - RENAL Hx Chronic Kidney Disease: No - ENDOCRINE/METABOLIC Hx Endocrine Disorders: Yes Hx Diabetes Mellitus Type 2: Yes (FROM EMS) - HEMATOLOGICAL/ONCOLOGICAL Hx Anemia: Yes - INTEGUMENTARY Hx Dermatological Problems: No - MUSCULOSKELETAL/RHEUMATOLOGICAL Hx Arthritis: Yes - GASTROINTESTINAL Hx Gastrointestinal Disorders: No - GENITOURINARY/GYNECOLOGICAL Hx Genitourinary Disorders: No - PSYCHIATRIC Hx Anxiety: Yes Hx Depression: Yes Hx Substance Use: No - SURGICAL HISTORY Hx Surgeries: Yes Hx Section: Yes (FROM PRIOVIOUS CHART) Hx Dilation and Curettage: Yes (2013) Other/Comment: D&C (2013) - ANESTHESIA Hx Anesthesia: Yes Hx Anesthesia Reactions: No Hx Malignant Hyperthermia: No Meds Allergies/Adverse Reactions: Allergies Allergy/AdvReac Type Severity Reaction Status Date / Time moxifloxacin HCl Allergy Mild RASH Verified 10/08/16 05:04 [From Avelox] codeine Allergy RASH Verified 10/08/16 05:04 morphine AdvReac RASH Verified 10/08/16 05:04 niacin AdvReac ITCHING Verified 10/08/16 05:04 [From Niaspan Extended-Release] Penicillins AdvReac RASH Verified 10/08/16 05:04 tramadol AdvReac RASH Verified 10/08/16 05:04 - Medications Medications: Current Medications Acetaminophen (Tylenol 650mg/20.3ml Solution Ud) 650 mg NG Q6 PRN PRN Reason: FOR TEMP 101*F OR ABOVE Last Admin: 10/09/16 06:01 Dose: 650 mg Enoxaparin Sodium (Lovenox) 40 mg SC DAILY [facility] Last Admin: 10/08/16 10:25 Dose: 40 mg Propofol (Diprivan) 1,000 mg in 100 mls @ 2.722 mls/hr IV .Q24H PRN; Protocol; 5 MCG/KG/MIN PRN Reason: TITRATE PER MD ORDER Last Admin: 10/09/16 01:28 Dose: 36.74 mcg/kg/min, 19.998 mls/hr Azithromycin 500 mg/ Sodium (Chloride) 250 mls @ 250 mls/hr IVPB DAILY [facility] Last Admin: 10/09/16 09:36 Dose: 250 mls/hr Ceftriaxone Sodium 1 gm/ (Sodium Chloride) 100 mls @ 100 mls/hr IVPB DAILY [facility] Last Admin: 10/09/16 09:36 Dose: 100 mls/hr Sodium Chloride (Sodium Chloride 0.9%) 1,000 mls @ 100 mls/hr IV .Q10H [facility] Last Admin: 10/09/16 06:41 Dose: Not Given Vancomycin/Sodium Chloride (Vancocin) 1 gm in 200 mls @ 133.333 mls/hr IVPB Q12H [facility] Stop: 10/14/16 10:31 Last Admin: 10/09/16 10:45 Dose: 133.333 mls/hr Insulin Human Regular (Novolin R) 0 unit SC Q6 MINI PRN Reason: Protocol Last Admin: 10/09/16 12:57 Dose: 8 unit Pantoprazole Sodium (Protonix Inj) 40 mg IVP DAILY [facility] Last Admin: 10/09/16 09:36 Dose: 40 mg Physical Exam - Constitutional Appears: Toxic - Head Exam Additional comments: ET in place - Eye Exam Eye Exam: Conjunctival injection, Periorbital swelling Pupil Exam: Irregular - Neck Exam Neck exam: Positive for: Normal Inspection - Respiratory Exam Additional comments: Intubated on assist control - Cardiovascular Exam Cardiovascular Exam: REGULAR RHYTHM, +S1, +S2 - GI/Abdominal Exam GI & Abdominal Exam: Normal Bowel Sounds, Soft. absent: Tenderness - Neurological Exam Additional comments: Pupils are reactive, corneal response is present, breathing over the ventilator. No response to verbal or painful stimuli. Bilateral upgoing plantar response, but more positive on the left side. GCS= 3T Results - Vital Signs Recent Vital Signs: Last Vital Signs Temp 100.8 F H 10/09/16 08:00 Pulse 100 H 10/09/16 11:10 Resp 14 10/09/16 11:10 BP 158/78 H 10/09/16 11:05 Pulse Ox 98 10/09/16 11:10 - Labs Result Diagrams: 10/09/16 07:53 10/09/16 06:17 Labs: Laboratory Results - last 24 hr 10/09/16 10/09/16 10/09/16 00:58 05:20 05:27 WBC RBC Hgb Hct MCV MCH MCHC RDW Plt Count MPV Neut % (Auto) Lymph % (Auto) [place] % (Auto) Eos % (Auto) Baso % (Auto) Neut # Lymph # [place] # Eos # Baso # Neutrophils % (Manual) Band Neutrophils % Lymphocytes % (Manual) Monocytes % (Manual) Basophils % (Manual) Toxic Granulation Dohle Bodies Platelet Estimate RBC Morphology PT INR APTT Puncture Site Lr pCO2 44 pO2 99 HCO3 26.4 ABG pH 7.40 ABG Total CO2 28.7 H ABG O2 Saturation 98.2 H ABG Base Excess 2.0 ABG Hemoglobin 14.3 ABG Carboxyhemoglobin 1.2 POC ABG HHb (Measured) 1.8 ABG Methemoglobin 1.1 Nico Test Pos A-a O2 Difference 274.0 Respiratory Index 2.8 Hgb O2 Saturation 95.9 Mechanical Rate 14 FiO2 60.0 Tidal Volume 500 PEEP 5 Sodium Potassium Chloride Carbon Dioxide Anion Gap BUN Creatinine Est GFR ( Amer) Est GFR (Non-Af Amer) POC Glucose (mg/dL) 388 H 365 H Random Glucose Calcium Phosphorus Magnesium Total Bilirubin AST ALT Alkaline Phosphatase Total Creatine Kinase CK-MB (Mass) Troponin I, Quant Total Protein Albumin Globulin Albumin/Globulin Ratio 10/09/16 10/09/16 10/09/16 06:17 07:53 11:21 WBC 23.4 H RBC 4.01 Hgb 11.8 Hct 35.7 MCV 89.1 MCH 29.4 MCHC 33.1 RDW 13.8 Plt Count 224 MPV 8.4 Neut % (Auto) 85.2 H Lymph % (Auto) 8.2 L [place] % (Auto) 6.3 Eos % (Auto) 0.0 Baso % (Auto) 0.3 Neut # 20.0 H Lymph # 1.9 [place] # 1.5 H Eos # 0.0 Baso # 0.1 Neutrophils % (Manual) 74 Band Neutrophils % 11 H* Lymphocytes % (Manual) 6 L Monocytes % (Manual) 7 Basophils % (Manual) 2 Toxic Granulation Present Dohle Bodies Present Platelet Estimate Normal RBC Morphology Normal PT INR APTT Puncture Site pCO2 pO2 HCO3 ABG pH ABG Total CO2 ABG O2 Saturation ABG Base Excess ABG Hemoglobin ABG Carboxyhemoglobin POC ABG HHb (Measured) ABG Methemoglobin Nico Test A-a O2 Difference Respiratory Index Hgb O2 Saturation Mechanical Rate FiO2 Tidal Volume PEEP Sodium 138 Potassium 4.1 Chloride 104 Carbon Dioxide 25 Anion Gap 14 BUN 23 H Creatinine 0.7 Est GFR ( Amer) > 60 Est GFR (Non-Af Amer) > 60 POC Glucose (mg/dL) Random Glucose 366 H Calcium 9.3 Phosphorus 2.1 L Magnesium 2.2 Total Bilirubin 0.9 AST 32 ALT 33 Alkaline Phosphatase 106 Total Creatine Kinase 65 CK-MB (Mass) 0.60 Troponin I, Quant 0.0970 Total Protein 6.9 Albumin 3.4 L D Globulin 3.5 Albumin/Globulin Ratio 1.0 10/09/16 10/09/16 12:51 12:53 WBC RBC Hgb Hct MCV MCH MCHC RDW Plt Count MPV Neut % (Auto) Lymph % (Auto) [place] % (Auto) Eos % (Auto) Baso % (Auto) Neut # Lymph # [place] # Eos # Baso # Neutrophils % (Manual) Band Neutrophils % Lymphocytes % (Manual) Monocytes % (Manual) Basophils % (Manual) Toxic Granulation Dohle Bodies Platelet Estimate RBC Morphology PT 16.5 H INR 1.4 APTT 39 H Puncture Site pCO2 pO2 HCO3 ABG pH ABG Total CO2 ABG O2 Saturation ABG Base Excess ABG Hemoglobin ABG Carboxyhemoglobin POC ABG HHb (Measured) ABG Methemoglobin Nico Test A-a O2 Difference Respiratory Index Hgb O2 Saturation Mechanical Rate FiO2 Tidal Volume PEEP Sodium Potassium Chloride Carbon Dioxide Anion Gap BUN Creatinine Est GFR ( Amer) Est GFR (Non-Af Amer) POC Glucose (mg/dL) 349 H Random Glucose Calcium Phosphorus Magnesium Total Bilirubin AST ALT Alkaline Phosphatase Total Creatine Kinase CK-MB (Mass) Troponin I, Quant Total Protein Albumin Globulin Albumin/Globulin Ratio - Imaging and Cardiology CT scan - head Status: Image reviewed by me, Report reviewed by me (Atrophy in superior regions with possible loss of concepcion-white junction on the right cortical/ subcortical regions. ) Assessment & Plan (1) Encephalopathy acute Assessment and Plan: The differential includes encaphalitis, status epilepticus, brainstem or bilateral cortical infarct. I recommend starting empiric antibiotics, obtaining a lumbar puncture for CSF analysis, CTA of the head/neck, MRI of the brain with and without contrast, EEG, DVT prophylaxis. Thank you very much for this consultation. Status: Acute Priority: High
[2016-10-09] MEDS: Enoxaparin 40 mg Syringe SC SCH (17:42)
--- NOTE | 2016-10-09 18:35 | CARD ---
APPROVED REPORT EKG Measurement Heart [id number] <Conclusion> Sinus tachycardia ST & T wave abnormality, consider inferior ischemia Abnormal ECG
[2016-10-09] MEDS: cefTRIAXone 2 GM IN NS 2 GM/100 ML BAG IVPB SCH (22:27)
[2016-10-10] MEDS: Acetaminophen 650mg/20.3ml solution UD NG PRN (05:30)
[2016-10-10 05:48] LABS: ABG ALLEN TEST POS; ABG MECHANICAL RATE 18; ARTERIAL BLOOD HGB O2 SAT 95.9 % (95.0-98.0); ATERIAL BLOOD GAS PEEP 5; CARBOXYHEMOGLOBIN 1.2 % (0.5-1.5); DRAW SITE RR; HHB 1.7 % (0.0-5.0); METHEMOGLOBIN 1.2 % (0.0-3.0)
[2016-10-10] MEDS: (Novolin R) Insulin Human Regular 100 units/ml vial SC SCH ×3 (05:50→18:10)
[2016-10-10] MEDS: Sodium Chloride 0.9% 1,000 ML IV SCH ×2 (06:01→19:00)
[2016-10-10 06:17] LABS: BASO % 0.2 % (0.0-2.0); EOS % 0.1 % (0.0-4.0); HEMATOCRIT 34.8 % (34.0-47.0); LYMPH # 1.7 K/uL (1.0-4.3); LYMPH % 8.3 % (20.0-40.0); MEAN CELL VOLUME 89.2 fL (81.0-99.0); MEAN CORPUSCULAR HEMOGLOBIN 29.3 pg (27.0-31.0); MEAN CORPUSCULAR HGB CONC 32.8 g/dL (33.0-37.0); MEAN PLATELET VOLUME 8.3 fL (7.2-11.7); MONO # 1.1 K/uL (0.0-0.8); MONO % 5.2 % (0.0-10.0); PLATELET COUNT 211 K/uL (130-400); RED CELL DISTRIBUTION WIDTH 14.1 % (11.5-14.5)
[2016-10-10 06:27] LABS: CHLORIDE 107 mmol/L (98-107)
[2016-10-10 06:28] LABS: SODIUM 142 mmol/L (132-148)
[2016-10-10 06:29] LABS: POTASSIUM 3.9 mmol/L (3.6-5.2)
[2016-10-10 06:31] LABS: ALB/GLOB RATIO 0.9 (1.0-2.1); ALKALINE PHOSPHATASE 99 U/L (38-126); ALT/SGPT 25 U/L (9-52); AST/SGOT 20 U/L (14-36); BILIRUBIN,TOTAL 0.9 mg/dL (0.2-1.3); BLOOD UREA NITROGEN 18 mg/dL (7-17); CARBON DIOXIDE 25 mmol/L (22-30); GFR AFRICAN-AMERICAN > 60; GLUCOSE,RANDOM 299 mg/dL (65-105); TOTAL PROTEIN 6.9 g/dL (6.3-8.3)
[2016-10-10 06:32] LABS: CALCIUM 9.6 mg/dl (8.6-10.4)
[2016-10-10 08:00] LABS: REACTIVE LYMPHOCYTES 1 % (0-0); TOTAL CELLS COUNTED 100
[2016-10-10 08:04] LABS: NEUTROPHIL 74 % (50-75)
[2016-10-10] MEDS ORDERED: Sodium Phosphate 15 MMOLE in Sodium Chloride 0.9% 250 ML IVPB ONE (09:00)
[2016-10-10] MEDS ORDERED: Iohexol 350mg/ml 100 ML ONE (09:04)
[2016-10-10] MEDS: Azithromycin 500 MG in Sodium Chloride 0.9% 250 ML IVPB SCH (10:00)
[2016-10-10] MEDS ORDERED: Lidocaine 2% Inj (20ml) ONE (10:25)
--- NOTE | 2016-10-10 10:55 | RAD ---
HISTORY: intubated COMPARISON: No prior. FINDINGS: LUNGS: No active pulmonary disease. PLEURA: No significant pleural effusion identified, no pneumothorax apparent. CARDIOVASCULAR: Normal heart size. ET tube and NG tube unchanged. Left hilar prominence resolved due to different positioning of the patient for this examination. OSSEOUS STRUCTURES: No significant abnormalities. VISUALIZED UPPER ABDOMEN: Normal. OTHER FINDINGS: None. IMPRESSION: No active disease.
[2016-10-10] MEDS: Enoxaparin 40 mg Syringe SC SCH (11:05)
[2016-10-10] MEDS: cefTRIAXone 2 GM IN NS 2 GM/100 ML BAG IVPB SCH (11:30)
--- NOTE | 2016-10-10 12:31 | CT ---
PROCEDURE: CT Angiography of the Brain. HISTORY: r/o CVA COMPARISON: None available. TECHNIQUE: CT angiography of the intracranial arteries was performed. Coronal and sagittal maximum intensity projection reformated images were generated. This CT exam was performed using one or more of the following dose reduction techniques: Automated exposure control, adjustment of the mA and/or kV according to patient size, and/or use of iterative reconstruction technique. FINDINGS: Limited study. The opacification of the intracranial arteries is suboptimal. INTERNAL CEREBRAL ARTERIES: Limited evaluation of the distal internal carotid arteries. There is segmental [id number] stenosis at the distal right internal carotid artery. Scattered atherosclerotic calcification also seen in the internal carotid arteries. ANTERIOR CEREBRAL ARTERIES: Limited assessment due to poor opacification of the anterior cerebral arteries P MIDDLE CEREBRAL ARTERIES: Suboptimal assessment of the middle cerebral arteries. Both middle cerebral arteries appears patent the right is smaller than the left. There is diffuse irregularity seen in the middle cerebral arteries also more prominent on the right. POSTERIOR CIRCULATION: Basilar Artery: Unremarkable. Distal Vertebral Arteries: The distal right cerebral artery is smaller than the left. Posterior Cerebral Arteries: Unremarkable. Posterior Inferior Cerebellar Arteries: Unremarkable. ANEURYSM/ VASCULAR MALFORMATIONS: None. OTHER FINDINGS: There is complete opacification of the right frontal sinus. There is defect in the posterior wall of the right frontal sinus without definite evidence of abscess formation in the intracranial fossa in this study. There is almost complete opacification of the ethmoid sinuses. There are air-fluid levels seen in the maxillary and sphenoid sinuses. Findings suggestive of white sinusitis. IMPRESSION: Limited study. The opacification of the distal internal carotid arteries and intracranial arteries is limited. Segmental [id number] stenosis at the distal right internal carotid arteries. Moderate diffuse atherosclerotic disease. The right middle cerebral artery is smaller than the left demonstrates diffuse irregularity. The distal right vertebral artery is smaller than the left. Pansinusitis. Complete opacification of the right frontal sinus. Focal defect seen in the posterior wall of the right frontal sinus without definite evidence of abscess formation in the intracranial frontal fossa. The possibility of infection spread into the intracranial fossa is not totally excluded in this exam.
[2016-10-10 12:55] LABS: FLUID TYPE SPINAL FLUID
[2016-10-10 12:56] LABS: CSF NEUTROPHIL 99 % (0-0)
[2016-10-10 12:58] LABS: CSF TOTAL COUNT 100 (0-0)
[2016-10-10] MEDS: Vancomycin 1 gm/NS 200 ml 1 GM/200 ML BAG IVPB SCH ×3 (14:25→23:56)
--- NOTE | 2016-10-10 15:11 | CP.CCUPN ---
<Miguel Mendez - Last Filed: 10/10/16 16:47> CCU Subjective - Physician Review Subjective (Free Text): 10/10/16 14:59 PGY-1 ICU progress note Pt seen and examined at bedside. Intubated. No overnight events. Critical Care Time Spent (in minutes): 35 CCU Objective - Vital Signs / Intake & Output Intake and Output (Last 8hrs): Intake & Output 10/09/16 10/10/16 10/10/16 22:59 06:59 14:59 Intake Total 1163 890 232 Output Total 1180 1200 500 Balance -17 -310 -268 Intake: Intake, IV Amount 863 650 232 Right Forearm 663 650 170 Right Hand 200 62 Tube Feeding 240 240 0 Other 60 Output: Urine 1180 1200 500 Urethral ([place]) 1180 1200 500 - Physical Exam Head: Positive for: Atraumatic, Normocephalic Pupils: Positive for: Sluggish Mouth: Positive for: Moist Mucous Membranes Respiratory/Chest: Positive for: Rhonchi, Other (intubated) Cardiovascular: Positive for: Normal S1, S2, Tachycardic Abdomen: Positive for: Normal Bowel Sounds. Negative for: Distention Upper Extremity: Positive for: NORMAL PULSES, Neurovascularly Intact Lower Extremity: Positive for: NORMAL PULSES, Neurovascularly Intact Neurological: Positive for: Other (altered) Skin: Positive for: Warm, Dry - Medications Active Medications: Active Medications Generic Name Dose Route Start Last Admin Trade Name Freq PRN Reason Stop Dose Admin Acetaminophen 650 mg 10/09/16 00:41 10/10/16 05:30 Tylenol 650mg/20.3ml Solution Ud NG 650 mg Q6 PRN Administration FOR TEMP 101*F OR ABOVE Acetazolamide 500 mg 10/10/16 11:15 Diamox 500 Mg Inj IV Q8H MINI Enoxaparin Sodium 40 mg 10/09/16 17:30 10/10/16 11:05 Lovenox SC 40 mg DAILY MINI Administration Azithromycin 500 mg/ Sodium 250 mls @ 250 mls/hr 10/09/16 10:00 10/10/16 10: 00 Chloride IVPB 250 mls/hr DAILY MINI Administration Vancomycin/Sodium Chloride 1 gm in 200 mls @ 133.333 mls/hr 10/09/16 10:30 14:25 Vancocin IVPB 10/14/16 10:31 133.333 mls/hr Q12H MINI Administration Sodium Chloride 1,000 mls @ 75 mls/hr 10/09/16 17:12 10/10/16 06:01 Sodium Chloride 0.9% IV 75 mls/hr .[id number] MINI Administration Acyclovir 600 mg/ Sodium 100 mls @ 100 mls/hr 10/09/16 22:00 10/10/16 14:32 Chloride IV 100 mls/hr Q8H MINI Administration Ceftriaxone Sodium 2 gm in 100 mls @ 100 mls/hr 10/09/16 23:00 10/10/16 11:30 Rocephin 2 Gm Ivpb IVPB 100 mls/hr Q12 MINI Administration Insulin Human Regular 0 unit 10/09/16 09:24 10/10/16 12:35 Novolin R SC 6 unit Q6 MINI Administration Protocol Lorazepam 2 mg 10/09/16 21:06 10/10/16 05:30 Ativan IVP 2 mg Q6H PRN Administration Anxiety Pantoprazole Sodium 40 mg 10/08/16 10:00 10/10/16 09:12 Protonix Inj IVP 40 mg DAILY MINI Administration - Patient Studies Lab Studies: Microbiology Studies 10/10/16 10:57 Gram Stain - Final Cerebral Spinal Fluid 10/08/16 08:10 MRSA Culture (Admit) - Final Naris MRSA NOT DETECTED Lab Studies 10/10/16 10/10/16 10/10/16 Range/Units 12:41 12:18 12:00 WBC (4.8-10.8) K/uL RBC (3.80-5.20) Mil/uL Hgb (11.0-16.0) g/dL Hct (34.0-47.0) % MCV (81.0-99.0) fL MCH (27.0-31.0) pg MCHC (33.0-37.0) g/dL RDW (11.5-14.5) % Plt Count (130-400) K/uL MPV (7.2-11.7) fL Neut % (Auto) (50.0-75.0) % Lymph % (Auto) (20.0-40.0) % [place] % (Auto) (0.0-10.0) % Eos % (Auto) (0.0-4.0) % Baso % (Auto) (0.0-2.0) % Neut # (1.8-7.0) K/uL Lymph # (1.0-4.3) K/uL [place] # (0.0-0.8) K/uL Eos # (0.0-0.7) K/uL Baso # (0.0-0.2) K/uL Neutrophils % (Manual) (50-75) % Band Neutrophils % (0-2) % Lymphocytes % (Manual) (20-40) % Reactive Lymphs % (0-0) % Monocytes % (Manual) (0-10) % Toxic Granulation Platelet Estimate (NORMAL) RBC Morphology Puncture Site pCO2 (35-45) mm/Hg pO2 (80-100) mm/Hg HCO3 (21-28) mmol/L ABG pH (7.35-7.45) ABG Total CO2 (22-28) mmol/L ABG O2 Saturation (95-98) % ABG Base Excess (-2.0-3.0) mmol/L ABG Hemoglobin (11.7-17.4) g/dL ABG Carboxyhemoglobin (0.5-1.5) % POC ABG HHb (Measured) (0.0-5.0) % ABG Methemoglobin (0.0-3.0) % Nico Test A-a O2 Difference mm/Hg Respiratory Index Hgb O2 Saturation (95.0-98.0) % Mechanical Rate FiO2 % Tidal Volume PEEP Sodium (132-148) mmol/L Potassium (3.6-5.2) mmol/L Chloride (98-107) mmol/L Carbon Dioxide (22-30) mmol/L Anion Gap (10-20) BUN (7-17) mg/dL Creatinine (0.7-1.2) MG/DL Est GFR ( Amer) Est GFR (Non-Af Amer) POC Glucose (mg/dL) 297 H (65-110) mg/dL Random Glucose (65-105) mg/dL Calcium (8.6-10.4) mg/dl Phosphorus (2.5-4.5) mg/dL Magnesium (1.6-2.3) mg/dL Total Bilirubin (0.2-1.3) mg/dL AST (14-36) U/L ALT (9-52) U/L Alkaline Phosphatase (38-126) U/L Total Protein (6.3-8.3) g/dL Albumin (3.5-5.0) g/dL Globulin (2.2-3.9) gm/dL Albumin/Globulin Ratio (1.0-2.1) Fluid Type Spinal fluid Fluid Diff Path Review CSF Appearance Cloudy (CLEAR) CSF WBC 41931.0 H (0.0-5.0) /mm3 CSF RBC 1135.0 H (0.0-0.0) /mm3 CSF Total Cell Counted 100 H (0-0) CSF Neutrophils 99 H (0-0) % CSF Lymphocytes 1.0 H (0-0) % CSF Monos/Macrophages (0-0) % CSF Glucose 78 H (40-70) mg/dL CSF Total Protein 436.0 H* (12-60) mg/dL CSF Cryptococcus Ag (NEGATIVE) Cryptococcus Ag (NEGATIVE) HIV 1&2 Antibody Screen (NEGATIVE) 10/10/16 10/10/16 10/10/16 Range/Units 11:01 06:09 06:09 WBC (4.8-10.8) K/uL RBC (3.80-5.20) Mil/uL Hgb (11.0-16.0) g/dL Hct (34.0-47.0) % MCV (81.0-99.0) fL MCH (27.0-31.0) pg MCHC (33.0-37.0) g/dL RDW (11.5-14.5) % Plt Count (130-400) K/uL MPV (7.2-11.7) fL Neut % (Auto) (50.0-75.0) % Lymph % (Auto) (20.0-40.0) % [place] % (Auto) (0.0-10.0) % Eos % (Auto) (0.0-4.0) % Baso % (Auto) (0.0-2.0) % Neut # (1.8-7.0) K/uL Lymph # (1.0-4.3) K/uL [place] # (0.0-0.8) K/uL Eos # (0.0-0.7) K/uL Baso # (0.0-0.2) K/uL Neutrophils % (Manual) (50-75) % Band Neutrophils % (0-2) % Lymphocytes % (Manual) (20-40) % Reactive Lymphs % (0-0) % Monocytes % (Manual) (0-10) % Toxic Granulation Platelet Estimate (NORMAL) RBC Morphology Puncture Site pCO2 (35-45) mm/Hg pO2 (80-100) mm/Hg HCO3 (21-28) mmol/L ABG pH (7.35-7.45) ABG Total CO2 (22-28) mmol/L ABG O2 Saturation (95-98) % ABG Base Excess (-2.0-3.0) mmol/L ABG Hemoglobin (11.7-17.4) g/dL ABG Carboxyhemoglobin (0.5-1.5) % POC ABG HHb (Measured) (0.0-5.0) % ABG Methemoglobin (0.0-3.0) % Nico Test A-a O2 Difference mm/Hg Respiratory Index Hgb O2 Saturation (95.0-98.0) % Mechanical Rate FiO2 % Tidal Volume PEEP Sodium (132-148) mmol/L Potassium (3.6-5.2) mmol/L Chloride (98-107) mmol/L Carbon Dioxide (22-30) mmol/L Anion Gap (10-20) BUN (7-17) mg/dL Creatinine (0.7-1.2) MG/DL Est GFR ( Amer) Est GFR (Non-Af Amer) POC Glucose (mg/dL) (65-110) mg/dL Random Glucose (65-105) mg/dL Calcium (8.6-10.4) mg/dl Phosphorus (2.5-4.5) mg/dL Magnesium (1.6-2.3) mg/dL Total Bilirubin (0.2-1.3) mg/dL AST (14-36) U/L ALT (9-52) U/L Alkaline Phosphatase (38-126) U/L Total Protein (6.3-8.3) g/dL Albumin (3.5-5.0) g/dL Globulin (2.2-3.9) gm/dL Albumin/Globulin Ratio (1.0-2.1) Fluid Type Fluid Diff Path Review CSF Appearance (CLEAR) CSF WBC (0.0-5.0) /mm3 CSF RBC (0.0-0.0) /mm3 CSF Total Cell Counted (0-0) CSF Neutrophils (0-0) % CSF Lymphocytes (0-0) % CSF Monos/Macrophages (0-0) % CSF Glucose (40-70) mg/dL CSF Total Protein (12-60) mg/dL CSF Cryptococcus Ag Negative (NEGATIVE) Cryptococcus Ag Negative (NEGATIVE) HIV 1&2 Antibody Screen Negative (NEGATIVE) 10/10/16 10/10/16 10/10/16 Range/Units 06:09 06:09 05:47 WBC 21.0 H (4.8-10.8) K/uL RBC 3.90 (3.80-5.20) Mil/uL Hgb 11.4 (11.0-16.0) g/dL Hct 34.8 (34.0-47.0) % MCV 89.2 (81.0-99.0) fL MCH 29.3 (27.0-31.0) pg MCHC 32.8 L (33.0-37.0) g/dL RDW 14.1 (11.5-14.5) % Plt Count 211 (130-400) K/uL MPV 8.3 (7.2-11.7) fL Neut % (Auto) 86.2 H (50.0-75.0) % Lymph % (Auto) 8.3 L (20.0-40.0) % [place] % (Auto) 5.2 (0.0-10.0) % Eos % (Auto) 0.1 (0.0-4.0) % Baso % (Auto) 0.2 (0.0-2.0) % Neut # 18.1 H (1.8-7.0) K/uL Lymph # 1.7 (1.0-4.3) K/uL [place] # 1.1 H (0.0-0.8) K/uL Eos # 0.0 (0.0-0.7) K/uL Baso # 0.0 (0.0-0.2) K/uL Neutrophils % (Manual) 74 (50-75) % Band Neutrophils % 6 H (0-2) % Lymphocytes % (Manual) 12 L (20-40) % Reactive Lymphs % 1 H (0-0) % Monocytes % (Manual) 7 (0-10) % Toxic Granulation Present Platelet Estimate Normal (NORMAL) RBC Morphology Normal Puncture Site pCO2 (35-45) mm/Hg pO2 (80-100) mm/Hg HCO3 (21-28) mmol/L ABG pH (7.35-7.45) ABG Total CO2 (22-28) mmol/L ABG O2 Saturation (95-98) % ABG Base Excess (-2.0-3.0) mmol/L ABG Hemoglobin (11.7-17.4) g/dL ABG Carboxyhemoglobin (0.5-1.5) % POC ABG HHb (Measured) (0.0-5.0) % ABG Methemoglobin (0.0-3.0) % Nico Test A-a O2 Difference mm/Hg Respiratory Index Hgb O2 Saturation (95.0-98.0) % Mechanical Rate FiO2 % Tidal Volume PEEP Sodium 142 (132-148) mmol/L Potassium 3.9 (3.6-5.2) mmol/L Chloride 107 (98-107) mmol/L Carbon Dioxide 25 (22-30) mmol/L Anion Gap 13 (10-20) BUN 18 H (7-17) mg/dL Creatinine 0.6 L (0.7-1.2) MG/DL Est GFR ( Amer) > 60 Est GFR (Non-Af Amer) > 60 POC Glucose (mg/dL) 271 H (65-110) mg/dL Random Glucose 299 H (65-105) mg/dL Calcium 9.6 (8.6-10.4) mg/dl Phosphorus 1.0 L* (2.5-4.5) mg/dL Magnesium 2.0 (1.6-2.3) mg/dL Total Bilirubin 0.9 (0.2-1.3) mg/dL AST 20 (14-36) U/L ALT 25 (9-52) U/L Alkaline Phosphatase 99 (38-126) U/L Total Protein 6.9 (6.3-8.3) g/dL Albumin 3.2 L (3.5-5.0) g/dL Globulin 3.7 (2.2-3.9) gm/dL Albumin/Globulin Ratio 0.9 L (1.0-2.1) Fluid Type Fluid Diff Path Review CSF Appearance (CLEAR) CSF WBC (0.0-5.0) /mm3 CSF RBC (0.0-0.0) /mm3 CSF Total Cell Counted (0-0) CSF Neutrophils (0-0) % CSF Lymphocytes (0-0) % CSF Monos/Macrophages (0-0) % CSF Glucose (40-70) mg/dL CSF Total Protein (12-60) mg/dL CSF Cryptococcus Ag (NEGATIVE) Cryptococcus Ag (NEGATIVE) HIV 1&2 Antibody Screen (NEGATIVE) 10/10/16 10/09/16 10/09/16 Range/Units 05:31 23:49 18:28 WBC (4.8-10.8) K/uL RBC (3.80-5.20) Mil/uL Hgb (11.0-16.0) g/dL Hct (34.0-47.0) % MCV (81.0-99.0) fL MCH (27.0-31.0) pg MCHC (33.0-37.0) g/dL RDW (11.5-14.5) % Plt Count (130-400) K/uL MPV (7.2-11.7) fL Neut % (Auto) (50.0-75.0) % Lymph % (Auto) (20.0-40.0) % [place] % (Auto) (0.0-10.0) % Eos % (Auto) (0.0-4.0) % Baso % (Auto) (0.0-2.0) % Neut # (1.8-7.0) K/uL Lymph # (1.0-4.3) K/uL [place] # (0.0-0.8) K/uL Eos # (0.0-0.7) K/uL Baso # (0.0-0.2) K/uL Neutrophils % (Manual) (50-75) % Band Neutrophils % (0-2) % Lymphocytes % (Manual) (20-40) % Reactive Lymphs % (0-0) % Monocytes % (Manual) (0-10) % Toxic Granulation Platelet Estimate (NORMAL) RBC Morphology Puncture Site Rr pCO2 39 (35-45) mm/Hg pO2 95 (80-100) mm/Hg HCO3 26.1 (21-28) mmol/L ABG pH 7.43 (7.35-7.45) ABG Total CO2 27.1 (22-28) mmol/L ABG O2 Saturation 98.3 H (95-98) % ABG Base Excess 1.5 (-2.0-3.0) mmol/L ABG Hemoglobin 11.8 (11.7-17.4) g/dL ABG Carboxyhemoglobin 1.2 (0.5-1.5) % POC ABG HHb (Measured) 1.7 (0.0-5.0) % ABG Methemoglobin 1.2 (0.0-3.0) % Nico Test Pos A-a O2 Difference 337.0 mm/Hg Respiratory Index 3.1 Hgb O2 Saturation 95.9 (95.0-98.0) % Mechanical Rate 18 FiO2 70.0 % Tidal Volume 500 PEEP 5 Sodium (132-148) mmol/L Potassium (3.6-5.2) mmol/L Chloride (98-107) mmol/L Carbon Dioxide (22-30) mmol/L Anion Gap (10-20) BUN (7-17) mg/dL Creatinine (0.7-1.2) MG/DL Est GFR ( Amer) Est GFR (Non-Af Amer) POC Glucose (mg/dL) 323 H 305 H (65-110) mg/dL Random Glucose (65-105) mg/dL Calcium (8.6-10.4) mg/dl Phosphorus (2.5-4.5) mg/dL Magnesium (1.6-2.3) mg/dL Total Bilirubin (0.2-1.3) mg/dL AST (14-36) U/L ALT (9-52) U/L Alkaline Phosphatase (38-126) U/L Total Protein (6.3-8.3) g/dL Albumin (3.5-5.0) g/dL Globulin (2.2-3.9) gm/dL Albumin/Globulin Ratio (1.0-2.1) Fluid Type Fluid Diff Path Review CSF Appearance (CLEAR) CSF WBC (0.0-5.0) /mm3 CSF RBC (0.0-0.0) /mm3 CSF Total Cell Counted (0-0) CSF Neutrophils (0-0) % CSF Lymphocytes (0-0) % CSF Monos/Macrophages (0-0) % CSF Glucose (40-70) mg/dL CSF Total Protein (12-60) mg/dL CSF Cryptococcus Ag (NEGATIVE) Cryptococcus Ag (NEGATIVE) HIV 1&2 Antibody Screen (NEGATIVE) Laboratory Results - last 24 hr 10/09/16 10/09/16 10/10/16 18:28 23:49 05:31 WBC RBC Hgb Hct MCV MCH MCHC RDW Plt Count MPV Neut % (Auto) Lymph % (Auto) [place] % (Auto) Eos % (Auto) Baso % (Auto) Neut # Lymph # [place] # Eos # Baso # Neutrophils % (Manual) Band Neutrophils % Lymphocytes % (Manual) Reactive Lymphs % Monocytes % (Manual) Toxic Granulation Platelet Estimate RBC Morphology Puncture Site Rr pCO2 39 pO2 95 HCO3 26.1 ABG pH 7.43 ABG Total CO2 27.1 ABG O2 Saturation 98.3 H ABG Base Excess 1.5 ABG Hemoglobin 11.8 ABG Carboxyhemoglobin 1.2 POC ABG HHb (Measured) 1.7 ABG Methemoglobin 1.2 Nico Test Pos A-a O2 Difference 337.0 Respiratory Index 3.1 Hgb O2 Saturation 95.9 Mechanical Rate 18 FiO2 70.0 Tidal Volume 500 PEEP 5 Sodium Potassium Chloride Carbon Dioxide Anion Gap BUN Creatinine Est GFR ( Amer) Est GFR (Non-Af Amer) POC Glucose (mg/dL) 305 H 323 H Random Glucose Calcium Phosphorus Magnesium Total Bilirubin AST ALT Alkaline Phosphatase Total Protein Albumin Globulin Albumin/Globulin Ratio Fluid Type Fluid Diff Path Review CSF Appearance CSF WBC CSF RBC CSF Total Cell Counted CSF Neutrophils CSF Lymphocytes CSF Monos/Macrophages CSF Glucose CSF Total Protein CSF Cryptococcus Ag Cryptococcus Ag HIV 1&2 Antibody Screen 10/10/16 10/10/16 10/10/16 05:47 06:09 06:09 WBC 21.0 H RBC 3.90 Hgb 11.4 Hct 34.8 MCV 89.2 MCH 29.3 MCHC 32.8 L RDW 14.1 Plt Count 211 MPV 8.3 Neut % (Auto) 86.2 H Lymph % (Auto) 8.3 L [place] % (Auto) 5.2 Eos % (Auto) 0.1 Baso % (Auto) 0.2 Neut # 18.1 H Lymph # 1.7 [place] # 1.1 H Eos # 0.0 Baso # 0.0 Neutrophils % (Manual) 74 Band Neutrophils % 6 H Lymphocytes % (Manual) 12 L Reactive Lymphs % 1 H Monocytes % (Manual) 7 Toxic Granulation Present Platelet Estimate Normal RBC Morphology Normal Puncture Site pCO2 pO2 HCO3 ABG pH ABG Total CO2 ABG O2 Saturation ABG Base Excess ABG Hemoglobin ABG Carboxyhemoglobin POC ABG HHb (Measured) ABG Methemoglobin Nico Test A-a O2 Difference Respiratory Index Hgb O2 Saturation Mechanical Rate FiO2 Tidal Volume PEEP Sodium 142 Potassium 3.9 Chloride 107 Carbon Dioxide 25 Anion Gap 13 BUN 18 H Creatinine 0.6 L Est GFR ( Amer) > 60 Est GFR (Non-Af Amer) > 60 POC Glucose (mg/dL) 271 H Random Glucose 299 H Calcium 9.6 Phosphorus 1.0 L* Magnesium 2.0 Total Bilirubin 0.9 AST 20 ALT 25 Alkaline Phosphatase 99 Total Protein 6.9 Albumin 3.2 L Globulin 3.7 Albumin/Globulin Ratio 0.9 L Fluid Type Fluid Diff Path Review CSF Appearance CSF WBC CSF RBC CSF Total Cell Counted CSF Neutrophils CSF Lymphocytes CSF Monos/Macrophages CSF Glucose CSF Total Protein CSF Cryptococcus Ag Cryptococcus Ag HIV 1&2 Antibody Screen 10/10/16 10/10/16 10/10/16 06:09 06:09 11:01 WBC RBC Hgb Hct MCV MCH MCHC RDW Plt Count MPV Neut % (Auto) Lymph % (Auto) [place] % (Auto) Eos % (Auto) Baso % (Auto) Neut # Lymph # [place] # Eos # Baso # Neutrophils % (Manual) Band Neutrophils % Lymphocytes % (Manual) Reactive Lymphs % Monocytes % (Manual) Toxic Granulation Platelet Estimate RBC Morphology Puncture Site pCO2 pO2 HCO3 ABG pH ABG Total CO2 ABG O2 Saturation ABG Base Excess ABG Hemoglobin ABG Carboxyhemoglobin POC ABG HHb (Measured) ABG Methemoglobin Nico Test A-a O2 Difference Respiratory Index Hgb O2 Saturation Mechanical Rate FiO2 Tidal Volume PEEP Sodium Potassium Chloride Carbon Dioxide Anion Gap BUN Creatinine Est GFR ( Amer) Est GFR (Non-Af Amer) POC Glucose (mg/dL) Random Glucose Calcium Phosphorus Magnesium Total Bilirubin AST ALT Alkaline Phosphatase Total Protein Albumin Globulin Albumin/Globulin Ratio Fluid Type Fluid Diff Path Review CSF Appearance CSF WBC CSF RBC CSF Total Cell Counted CSF Neutrophils CSF Lymphocytes CSF Monos/Macrophages CSF Glucose CSF Total Protein CSF Cryptococcus Ag Negative Cryptococcus Ag Negative HIV 1&2 Antibody Screen Negative 10/10/16 10/10/16 10/10/16 12:00 12:18 12:41 WBC RBC Hgb Hct MCV MCH MCHC RDW Plt Count MPV Neut % (Auto) Lymph % (Auto) [place] % (Auto) Eos % (Auto) Baso % (Auto) Neut # Lymph # [place] # Eos # Baso # Neutrophils % (Manual) Band Neutrophils % Lymphocytes % (Manual) Reactive Lymphs % Monocytes % (Manual) Toxic Granulation Platelet Estimate RBC Morphology Puncture Site pCO2 pO2 HCO3 ABG pH ABG Total CO2 ABG O2 Saturation ABG Base Excess ABG Hemoglobin ABG Carboxyhemoglobin POC ABG HHb (Measured) ABG Methemoglobin Nico Test A-a O2 Difference Respiratory Index Hgb O2 Saturation Mechanical Rate FiO2 Tidal Volume PEEP Sodium Potassium Chloride Carbon Dioxide Anion Gap BUN Creatinine Est GFR ( Amer) Est GFR (Non-Af Amer) POC Glucose (mg/dL) 297 H Random Glucose Calcium Phosphorus Magnesium Total Bilirubin AST ALT Alkaline Phosphatase Total Protein Albumin Globulin Albumin/Globulin Ratio Fluid Type Spinal fluid Fluid Diff Path Review CSF Appearance Cloudy CSF WBC 00935.0 H CSF RBC 1135.0 H CSF Total Cell Counted 100 H CSF Neutrophils 99 H CSF Lymphocytes 1.0 H CSF Monos/Macrophages CSF Glucose 78 H CSF Total Protein 436.0 H* CSF Cryptococcus Ag Cryptococcus Ag HIV 1&2 Antibody Screen Fingerstick Blood Sugar Results: 297 Review of Systems - Review of Systems Systems not reviewed;Unavailable: Intubated Assessment/Plan - Assessment and Plan (Free Text) Assessment: This is a 61 yo F with bacteremic sepsis and respiratory failure, secondary to likely pneumonia. Pt also has change in mental status, febrile overnight and persistent leukocytosis likely secondary to [employer] involvement. Plan: Neuro: Off sedation, unresponsive Initial Head CT negative CTA head and neck is limited study, but no evidence of CVA Neurology consulted LP done, opening pressure noted to be very elevated at 53. CSF fluid collected - Tot prot, glucose, culture, gram stain, cell count/diff, cryptococcus, [place], HSV all sent. CSF shows WBC count extremely elevated at 20k with elevated total protein as well - likely bacterial meningitis Continue azithromycin, rocephin and now vancomycin Started Acetazolamide Cardiovascular: Tachycardic but hemodynamically stable. Monitor Pulmonary: Intubated. Saturating well. Consolidative changes in the left hilar on CXR Continue azithromycin, rocephin and now vancomycin Added acyclovir per ID Gastrointestinal: No acute issues, on tube feeds, tolerating well. Hematology: No acute issues Endocrine: Sliding scale coverage. monitor Renal: NS at 100 cc/hr Monitor electrolytes Strict I/O - good urine output Infectious Disease: LP done, opening pressure noted to be very elevated at 53. CSF fluid collected - Tot prot, glucose, culture, gram stain, cell count/diff, cryptococcus, [place], HSV all sent. CSF shows WBC count extremely elevated at 20k with elevated total protein as well - likely bacterial meningitis Persistent leukocytosis (Bandemia trending down), elevated procalcitonin and febrile during the night Blood cultures positive for strep pneumo - vanc sensitive Cont azithromycin, rocephin and vanc Added acyclovir Consider steroids ID following - f/u recs GI Prophylaxis: Protonix DVT Prophylaxis: Lovenox <Maykel Caldwell M - Last Filed: 10/10/16 18:02> CCU Objective - Vital Signs / Intake & Output Vital Signs (Last 4 hours): Vital Signs Pulse Resp BP Pulse Ox 10/10/16 17:04 100 H 28 H 122/61 94 L 10/10/16 17:00 100 H 22 97 10/10/16 16:04 108 H 26 H 167/80 H 97 10/10/16 16:00 110 H 24 99 10/10/16 15:38 97 H 28 H 168/86 H 7 L 10/10/16 15:04 99 H 20 148/76 99 10/10/16 15:00 98 H 22 99 10/10/16 14:04 97 H 20 160/73 H 100 Intake and Output (Last 8hrs): Intake & Output 10/10/16 10/10/16 10/10/16 06:59 14:59 22:59 Intake Total 890 1135 210 Output Total 1200 1425 250 Balance -310 -290 -40 Intake: Intake, IV Amount 650 1135 150 Right Forearm 650 820 150 Right Hand 315 0 Tube Feeding 240 0 60 Output: Urine 1200 1425 250 Urethral ([place]) 1200 1425 250 - Medications Active Medications: Active Medications Generic Name Dose Route Start Last Admin Trade Name Freq PRN Reason Stop Dose Admin Acetaminophen 650 mg 10/09/16 00:41 10/10/16 05:30 Tylenol 650mg/20.3ml Solution Ud NG 650 mg Q6 PRN Administration FOR TEMP 101*F OR ABOVE Acetazolamide 500 mg 10/10/16 16:00 10/10/16 16:33 Diamox 500 Mg Inj IV 500 mg Q8H MINI Administration Enoxaparin Sodium 40 mg 10/09/16 17:30 10/10/16 11:05 Lovenox SC 40 mg DAILY MINI Administration Azithromycin 500 mg/ Sodium 250 mls @ 250 mls/hr 10/09/16 10:00 10/10/16 10: 00 Chloride IVPB 250 mls/hr DAILY MINI Administration Vancomycin/Sodium Chloride 1 gm in 200 mls @ 133.333 mls/hr 10/09/16 10:30 14:25 Vancocin IVPB 10/14/16 10:31 133.333 mls/hr Q12H MINI Administration Sodium Chloride 1,000 mls @ 75 mls/hr 10/09/16 17:12 10/10/16 06:01 Sodium Chloride 0.9% IV 75 mls/hr .[id number] MINI Administration Acyclovir 600 mg/ Sodium 100 mls @ 100 mls/hr 10/09/16 22:00 10/10/16 14:32 Chloride IV 100 mls/hr Q8H MINI Administration Ceftriaxone Sodium 2 gm/ 100 mls @ 100 mls/hr 10/10/16 22:00 Sodium Chloride IVPB Q12 MINI Insulin Human Regular 0 unit 10/09/16 09:24 10/10/16 12:35 Novolin R SC 6 unit Q6 MINI Administration Protocol Lorazepam 2 mg 10/09/16 21:06 10/10/16 05:30 Ativan IVP 2 mg Q6H PRN Administration Anxiety Pantoprazole Sodium 40 mg 10/08/16 10:00 10/10/16 09:12 Protonix Inj IVP 40 mg DAILY MINI Administration - Patient Studies Lab Studies: Microbiology Studies 10/10/16 10:57 Gram Stain - Final Cerebral Spinal Fluid Lab Studies 10/10/16 10/10/16 10/10/16 Range/Units 17:48 12:41 12:18 WBC (4.8-10.8) K/uL RBC (3.80-5.20) Mil/uL Hgb (11.0-16.0) g/dL Hct (34.0-47.0) % MCV (81.0-99.0) fL MCH (27.0-31.0) pg MCHC (33.0-37.0) g/dL RDW (11.5-14.5) % Plt Count (130-400) K/uL MPV (7.2-11.7) fL Neut % (Auto) (50.0-75.0) % Lymph % (Auto) (20.0-40.0) % [place] % (Auto) (0.0-10.0) % Eos % (Auto) (0.0-4.0) % Baso % (Auto) (0.0-2.0) % Neut # (1.8-7.0) K/uL Lymph # (1.0-4.3) K/uL [place] # (0.0-0.8) K/uL Eos # (0.0-0.7) K/uL Baso # (0.0-0.2) K/uL Neutrophils % (Manual) (50-75) % Band Neutrophils % (0-2) % Lymphocytes % (Manual) (20-40) % Reactive Lymphs % (0-0) % Monocytes % (Manual) (0-10) % Toxic Granulation Platelet Estimate (NORMAL) RBC Morphology Puncture Site pCO2 (35-45) mm/Hg pO2 (80-100) mm/Hg HCO3 (21-28) mmol/L ABG pH (7.35-7.45) ABG Total CO2 (22-28) mmol/L ABG O2 Saturation (95-98) % ABG Base Excess (-2.0-3.0) mmol/L ABG Hemoglobin (11.7-17.4) g/dL ABG Carboxyhemoglobin (0.5-1.5) % POC ABG HHb (Measured) (0.0-5.0) % ABG Methemoglobin (0.0-3.0) % Nico Test A-a O2 Difference mm/Hg Respiratory Index Hgb O2 Saturation (95.0-98.0) % Mechanical Rate FiO2 % Tidal Volume PEEP Sodium (132-148) mmol/L Potassium (3.6-5.2) mmol/L Chloride (98-107) mmol/L Carbon Dioxide (22-30) mmol/L Anion Gap (10-20) BUN (7-17) mg/dL Creatinine (0.7-1.2) MG/DL Est GFR ( Amer) Est GFR (Non-Af Amer) POC Glucose (mg/dL) 242 H 297 H (65-110) mg/dL Random Glucose (65-105) mg/dL Calcium (8.6-10.4) mg/dl Phosphorus (2.5-4.5) mg/dL Magnesium (1.6-2.3) mg/dL Total Bilirubin (0.2-1.3) mg/dL AST (14-36) U/L ALT (9-52) U/L Alkaline Phosphatase (38-126) U/L Total Protein (6.3-8.3) g/dL Albumin (3.5-5.0) g/dL Globulin (2.2-3.9) gm/dL Albumin/Globulin Ratio (1.0-2.1) Fluid Type Fluid Diff Path Review CSF Appearance (CLEAR) CSF WBC (0.0-5.0) /mm3 CSF RBC (0.0-0.0) /mm3 CSF Total Cell Counted (0-0) CSF Neutrophils (0-0) % CSF Lymphocytes (0-0) % CSF Monos/Macrophages (0-0) % CSF Glucose 78 H (40-70) mg/dL CSF Total Protein 436.0 H* (12-60) mg/dL CSF Cryptococcus Ag (NEGATIVE) Cryptococcus Ag (NEGATIVE) HIV 1&2 Antibody Screen (NEGATIVE) 10/10/16 10/10/16 10/10/16 Range/Units 12:00 11:01 06:09 WBC (4.8-10.8) K/uL RBC (3.80-5.20) Mil/uL Hgb (11.0-16.0) g/dL Hct (34.0-47.0) % MCV (81.0-99.0) fL MCH (27.0-31.0) pg MCHC (33.0-37.0) g/dL RDW (11.5-14.5) % Plt Count (130-400) K/uL MPV (7.2-11.7) fL Neut % (Auto) (50.0-75.0) % Lymph % (Auto) (20.0-40.0) % [place] % (Auto) (0.0-10.0) % Eos % (Auto) (0.0-4.0) % Baso % (Auto) (0.0-2.0) % Neut # (1.8-7.0) K/uL Lymph # (1.0-4.3) K/uL [place] # (0.0-0.8) K/uL Eos # (0.0-0.7) K/uL Baso # (0.0-0.2) K/uL Neutrophils % (Manual) (50-75) % Band Neutrophils % (0-2) % Lymphocytes % (Manual) (20-40) % Reactive Lymphs % (0-0) % Monocytes % (Manual) (0-10) % Toxic Granulation Platelet Estimate (NORMAL) RBC Morphology Puncture Site pCO2 (35-45) mm/Hg pO2 (80-100) mm/Hg HCO3 (21-28) mmol/L ABG pH (7.35-7.45) ABG Total CO2 (22-28) mmol/L ABG O2 Saturation (95-98) % ABG Base Excess (-2.0-3.0) mmol/L ABG Hemoglobin (11.7-17.4) g/dL ABG Carboxyhemoglobin (0.5-1.5) % POC ABG HHb (Measured) (0.0-5.0) % ABG Methemoglobin (0.0-3.0) % Nico Test A-a O2 Difference mm/Hg Respiratory Index Hgb O2 Saturation (95.0-98.0) % Mechanical Rate FiO2 % Tidal Volume PEEP Sodium (132-148) mmol/L Potassium (3.6-5.2) mmol/L Chloride (98-107) mmol/L Carbon Dioxide (22-30) mmol/L Anion Gap (10-20) BUN (7-17) mg/dL Creatinine (0.7-1.2) MG/DL Est GFR ( Amer) Est GFR (Non-Af Amer) POC Glucose (mg/dL) (65-110) mg/dL Random Glucose (65-105) mg/dL Calcium (8.6-10.4) mg/dl Phosphorus (2.5-4.5) mg/dL Magnesium (1.6-2.3) mg/dL Total Bilirubin (0.2-1.3) mg/dL AST (14-36) U/L ALT (9-52) U/L Alkaline Phosphatase (38-126) U/L Total Protein (6.3-8.3) g/dL Albumin (3.5-5.0) g/dL Globulin (2.2-3.9) gm/dL Albumin/Globulin Ratio (1.0-2.1) Fluid Type Spinal fluid Fluid Diff Path Review CSF Appearance Cloudy (CLEAR) CSF WBC 04068.0 H (0.0-5.0) /mm3 CSF RBC 1135.0 H (0.0-0.0) /mm3 CSF Total Cell Counted 100 H (0-0) CSF Neutrophils 99 H (0-0) % CSF Lymphocytes 1.0 H (0-0) % CSF Monos/Macrophages (0-0) % CSF Glucose (40-70) mg/dL CSF Total Protein (12-60) mg/dL CSF Cryptococcus Ag Negative (NEGATIVE) Cryptococcus Ag (NEGATIVE) HIV 1&2 Antibody Screen Negative (NEGATIVE) 10/10/16 10/10/16 10/10/16 Range/Units 06:09 06:09 06:09 WBC 21.0 H (4.8-10.8) K/uL RBC 3.90 (3.80-5.20) Mil/uL Hgb 11.4 (11.0-16.0) g/dL Hct 34.8 (34.0-47.0) % MCV 89.2 (81.0-99.0) fL MCH 29.3 (27.0-31.0) pg MCHC 32.8 L (33.0-37.0) g/dL RDW 14.1 (11.5-14.5) % Plt Count 211 (130-400) K/uL MPV 8.3 (7.2-11.7) fL Neut % (Auto) 86.2 H (50.0-75.0) % Lymph % (Auto) 8.3 L (20.0-40.0) % [place] % (Auto) 5.2 (0.0-10.0) % Eos % (Auto) 0.1 (0.0-4.0) % Baso % (Auto) 0.2 (0.0-2.0) % Neut # 18.1 H (1.8-7.0) K/uL Lymph # 1.7 (1.0-4.3) K/uL [place] # 1.1 H (0.0-0.8) K/uL Eos # 0.0 (0.0-0.7) K/uL Baso # 0.0 (0.0-0.2) K/uL Neutrophils % (Manual) 74 (50-75) % Band Neutrophils % 6 H (0-2) % Lymphocytes % (Manual) 12 L (20-40) % Reactive Lymphs % 1 H (0-0) % Monocytes % (Manual) 7 (0-10) % Toxic Granulation Present Platelet Estimate Normal (NORMAL) RBC Morphology Normal Puncture Site pCO2 (35-45) mm/Hg pO2 (80-100) mm/Hg HCO3 (21-28) mmol/L ABG pH (7.35-7.45) ABG Total CO2 (22-28) mmol/L ABG O2 Saturation (95-98) % ABG Base Excess (-2.0-3.0) mmol/L ABG Hemoglobin (11.7-17.4) g/dL ABG Carboxyhemoglobin (0.5-1.5) % POC ABG HHb (Measured) (0.0-5.0) % ABG Methemoglobin (0.0-3.0) % Nico Test A-a O2 Difference mm/Hg Respiratory Index Hgb O2 Saturation (95.0-98.0) % Mechanical Rate FiO2 % Tidal Volume PEEP Sodium 142 (132-148) mmol/L Potassium 3.9 (3.6-5.2) mmol/L Chloride 107 (98-107) mmol/L Carbon Dioxide 25 (22-30) mmol/L Anion Gap 13 (10-20) BUN 18 H (7-17) mg/dL Creatinine 0.6 L (0.7-1.2) MG/DL Est GFR ( Amer) > 60 Est GFR (Non-Af Amer) > 60 POC Glucose (mg/dL) (65-110) mg/dL Random Glucose 299 H (65-105) mg/dL Calcium 9.6 (8.6-10.4) mg/dl Phosphorus 1.0 L* (2.5-4.5) mg/dL Magnesium 2.0 (1.6-2.3) mg/dL Total Bilirubin 0.9 (0.2-1.3) mg/dL AST 20 (14-36) U/L ALT 25 (9-52) U/L Alkaline Phosphatase 99 (38-126) U/L Total Protein 6.9 (6.3-8.3) g/dL Albumin 3.2 L (3.5-5.0) g/dL Globulin 3.7 (2.2-3.9) gm/dL Albumin/Globulin Ratio 0.9 L (1.0-2.1) Fluid Type Fluid Diff Path Review CSF Appearance (CLEAR) CSF WBC (0.0-5.0) /mm3 CSF RBC (0.0-0.0) /mm3 CSF Total Cell Counted (0-0) CSF Neutrophils (0-0) % CSF Lymphocytes (0-0) % CSF Monos/Macrophages (0-0) % CSF Glucose (40-70) mg/dL CSF Total Protein (12-60) mg/dL CSF Cryptococcus Ag (NEGATIVE) Cryptococcus Ag Negative (NEGATIVE) HIV 1&2 Antibody Screen (NEGATIVE) 10/10/16 10/10/16 10/09/16 Range/Units 05:47 05:31 23:49 WBC (4.8-10.8) K/uL RBC (3.80-5.20) Mil/uL Hgb (11.0-16.0) g/dL Hct (34.0-47.0) % MCV (81.0-99.0) fL MCH (27.0-31.0) pg MCHC (33.0-37.0) g/dL RDW (11.5-14.5) % Plt Count (130-400) K/uL MPV (7.2-11.7) fL Neut % (Auto) (50.0-75.0) % Lymph % (Auto) (20.0-40.0) % [place] % (Auto) (0.0-10.0) % Eos % (Auto) (0.0-4.0) % Baso % (Auto) (0.0-2.0) % Neut # (1.8-7.0) K/uL Lymph # (1.0-4.3) K/uL [place] # (0.0-0.8) K/uL Eos # (0.0-0.7) K/uL Baso # (0.0-0.2) K/uL Neutrophils % (Manual) (50-75) % Band Neutrophils % (0-2) % Lymphocytes % (Manual) (20-40) % Reactive Lymphs % (0-0) % Monocytes % (Manual) (0-10) % Toxic Granulation Platelet Estimate (NORMAL) RBC Morphology Puncture Site Rr pCO2 39 (35-45) mm/Hg pO2 95 (80-100) mm/Hg HCO3 26.1 (21-28) mmol/L ABG pH 7.43 (7.35-7.45) ABG Total CO2 27.1 (22-28) mmol/L ABG O2 Saturation 98.3 H (95-98) % ABG Base Excess 1.5 (-2.0-3.0) mmol/L ABG Hemoglobin 11.8 (11.7-17.4) g/dL ABG Carboxyhemoglobin 1.2 (0.5-1.5) % POC ABG HHb (Measured) 1.7 (0.0-5.0) % ABG Methemoglobin 1.2 (0.0-3.0) % Nico Test Pos A-a O2 Difference 337.0 mm/Hg Respiratory Index 3.1 Hgb O2 Saturation 95.9 (95.0-98.0) % Mechanical Rate 18 FiO2 70.0 % Tidal Volume 500 PEEP 5 Sodium (132-148) mmol/L Potassium (3.6-5.2) mmol/L Chloride (98-107) mmol/L Carbon Dioxide (22-30) mmol/L Anion Gap (10-20) BUN (7-17) mg/dL Creatinine (0.7-1.2) MG/DL Est GFR ( Amer) Est GFR (Non-Af Amer) POC Glucose (mg/dL) 271 H 323 H (65-110) mg/dL Random Glucose (65-105) mg/dL Calcium (8.6-10.4) mg/dl Phosphorus (2.5-4.5) mg/dL Magnesium (1.6-2.3) mg/dL Total Bilirubin (0.2-1.3) mg/dL AST (14-36) U/L ALT (9-52) U/L Alkaline Phosphatase (38-126) U/L Total Protein (6.3-8.3) g/dL Albumin (3.5-5.0) g/dL Globulin (2.2-3.9) gm/dL Albumin/Globulin Ratio (1.0-2.1) Fluid Type Fluid Diff Path Review CSF Appearance (CLEAR) CSF WBC (0.0-5.0) /mm3 CSF RBC (0.0-0.0) /mm3 CSF Total Cell Counted (0-0) CSF Neutrophils (0-0) % CSF Lymphocytes (0-0) % CSF Monos/Macrophages (0-0) % CSF Glucose (40-70) mg/dL CSF Total Protein (12-60) mg/dL CSF Cryptococcus Ag (NEGATIVE) Cryptococcus Ag (NEGATIVE) HIV 1&2 Antibody Screen (NEGATIVE) 10/09/16 Range/Units 18:28 WBC (4.8-10.8) K/uL RBC (3.80-5.20) Mil/uL Hgb (11.0-16.0) g/dL Hct (34.0-47.0) % MCV (81.0-99.0) fL MCH (27.0-31.0) pg MCHC (33.0-37.0) g/dL RDW (11.5-14.5) % Plt Count (130-400) K/uL MPV (7.2-11.7) fL Neut % (Auto) (50.0-75.0) % Lymph % (Auto) (20.0-40.0) % [place] % (Auto) (0.0-10.0) % Eos % (Auto) (0.0-4.0) % Baso % (Auto) (0.0-2.0) % Neut # (1.8-7.0) K/uL Lymph # (1.0-4.3) K/uL [place] # (0.0-0.8) K/uL Eos # (0.0-0.7) K/uL Baso # (0.0-0.2) K/uL Neutrophils % (Manual) (50-75) % Band Neutrophils % (0-2) % Lymphocytes % (Manual) (20-40) % Reactive Lymphs % (0-0) % Monocytes % (Manual) (0-10) % Toxic Granulation Platelet Estimate (NORMAL) RBC Morphology Puncture Site pCO2 (35-45) mm/Hg pO2 (80-100) mm/Hg HCO3 (21-28) mmol/L ABG pH (7.35-7.45) ABG Total CO2 (22-28) mmol/L ABG O2 Saturation (95-98) % ABG Base Excess (-2.0-3.0) mmol/L ABG Hemoglobin (11.7-17.4) g/dL ABG Carboxyhemoglobin (0.5-1.5) % POC ABG HHb (Measured) (0.0-5.0) % ABG Methemoglobin (0.0-3.0) % Nico Test A-a O2 Difference mm/Hg Respiratory Index Hgb O2 Saturation (95.0-98.0) % Mechanical Rate FiO2 % Tidal Volume PEEP Sodium (132-148) mmol/L Potassium (3.6-5.2) mmol/L Chloride (98-107) mmol/L Carbon Dioxide (22-30) mmol/L Anion Gap (10-20) BUN (7-17) mg/dL Creatinine (0.7-1.2) MG/DL Est GFR ( Amer) Est GFR (Non-Af Amer) POC Glucose (mg/dL) 305 H (65-110) mg/dL Random Glucose (65-105) mg/dL Calcium (8.6-10.4) mg/dl Phosphorus (2.5-4.5) mg/dL Magnesium (1.6-2.3) mg/dL Total Bilirubin (0.2-1.3) mg/dL AST (14-36) U/L ALT (9-52) U/L Alkaline Phosphatase (38-126) U/L Total Protein (6.3-8.3) g/dL Albumin (3.5-5.0) g/dL Globulin (2.2-3.9) gm/dL Albumin/Globulin Ratio (1.0-2.1) Fluid Type Fluid Diff Path Review CSF Appearance (CLEAR) CSF WBC (0.0-5.0) /mm3 CSF RBC (0.0-0.0) /mm3 CSF Total Cell Counted (0-0) CSF Neutrophils (0-0) % CSF Lymphocytes (0-0) % CSF Monos/Macrophages (0-0) % CSF Glucose (40-70) mg/dL CSF Total Protein (12-60) mg/dL CSF Cryptococcus Ag (NEGATIVE) Cryptococcus Ag (NEGATIVE) HIV 1&2 Antibody Screen (NEGATIVE) Laboratory Results - last 24 hr 10/09/16 10/09/16 10/10/16 18:28 23:49 05:31 WBC RBC Hgb Hct MCV MCH MCHC RDW Plt Count MPV Neut % (Auto) Lymph % (Auto) [place] % (Auto) Eos % (Auto) Baso % (Auto) Neut # Lymph # [place] # Eos # Baso # Neutrophils % (Manual) Band Neutrophils % Lymphocytes % (Manual) Reactive Lymphs % Monocytes % (Manual) Toxic Granulation Platelet Estimate RBC Morphology Puncture Site Rr pCO2 39 pO2 95 HCO3 26.1 ABG pH 7.43 ABG Total CO2 27.1 ABG O2 Saturation 98.3 H ABG Base Excess 1.5 ABG Hemoglobin 11.8 ABG Carboxyhemoglobin 1.2 POC ABG HHb (Measured) 1.7 ABG Methemoglobin 1.2 Nico Test Pos A-a O2 Difference 337.0 Respiratory Index 3.1 Hgb O2 Saturation 95.9 Mechanical Rate 18 FiO2 70.0 Tidal Volume 500 PEEP 5 Sodium Potassium Chloride Carbon Dioxide Anion Gap BUN Creatinine Est GFR ( Amer) Est GFR (Non-Af Amer) POC Glucose (mg/dL) 305 H 323 H Random Glucose Calcium Phosphorus Magnesium Total Bilirubin AST ALT Alkaline Phosphatase Total Protein Albumin Globulin Albumin/Globulin Ratio Fluid Type Fluid Diff Path Review CSF Appearance CSF WBC CSF RBC CSF Total Cell Counted CSF Neutrophils CSF Lymphocytes CSF Monos/Macrophages CSF Glucose CSF Total Protein CSF Cryptococcus Ag Cryptococcus Ag HIV 1&2 Antibody Screen 10/10/16 10/10/16 10/10/16 05:47 06:09 06:09 WBC 21.0 H RBC 3.90 Hgb 11.4 Hct 34.8 MCV 89.2 MCH 29.3 MCHC 32.8 L RDW 14.1 Plt Count 211 MPV 8.3 Neut % (Auto) 86.2 H Lymph % (Auto) 8.3 L [place] % (Auto) 5.2 Eos % (Auto) 0.1 Baso % (Auto) 0.2 Neut # 18.1 H Lymph # 1.7 [place] # 1.1 H Eos # 0.0 Baso # 0.0 Neutrophils % (Manual) 74 Band Neutrophils % 6 H Lymphocytes % (Manual) 12 L Reactive Lymphs % 1 H Monocytes % (Manual) 7 Toxic Granulation Present Platelet Estimate Normal RBC Morphology Normal Puncture Site pCO2 pO2 HCO3 ABG pH ABG Total CO2 ABG O2 Saturation ABG Base Excess ABG Hemoglobin ABG Carboxyhemoglobin POC ABG HHb (Measured) ABG Methemoglobin Nico Test A-a O2 Difference Respiratory Index Hgb O2 Saturation Mechanical Rate FiO2 Tidal Volume PEEP Sodium 142 Potassium 3.9 Chloride 107 Carbon Dioxide 25 Anion Gap 13 BUN 18 H Creatinine 0.6 L Est GFR ( Amer) > 60 Est GFR (Non-Af Amer) > 60 POC Glucose (mg/dL) 271 H Random Glucose 299 H Calcium 9.6 Phosphorus 1.0 L* Magnesium 2.0 Total Bilirubin 0.9 AST 20 ALT 25 Alkaline Phosphatase 99 Total Protein 6.9 Albumin 3.2 L Globulin 3.7 Albumin/Globulin Ratio 0.9 L Fluid Type Fluid Diff Path Review CSF Appearance CSF WBC CSF RBC CSF Total Cell Counted CSF Neutrophils CSF Lymphocytes CSF Monos/Macrophages CSF Glucose CSF Total Protein CSF Cryptococcus Ag Cryptococcus Ag HIV 1&2 Antibody Screen 10/10/16 10/10/16 10/10/16 06:09 06:09 11:01 WBC RBC Hgb Hct MCV MCH MCHC RDW Plt Count MPV Neut % (Auto) Lymph % (Auto) [place] % (Auto) Eos % (Auto) Baso % (Auto) Neut # Lymph # [place] # Eos # Baso # Neutrophils % (Manual) Band Neutrophils % Lymphocytes % (Manual) Reactive Lymphs % Monocytes % (Manual) Toxic Granulation Platelet Estimate RBC Morphology Puncture Site pCO2 pO2 HCO3 ABG pH ABG Total CO2 ABG O2 Saturation ABG Base Excess ABG Hemoglobin ABG Carboxyhemoglobin POC ABG HHb (Measured) ABG Methemoglobin Nico Test A-a O2 Difference Respiratory Index Hgb O2 Saturation Mechanical Rate FiO2 Tidal Volume PEEP Sodium Potassium Chloride Carbon Dioxide Anion Gap BUN Creatinine Est GFR ( Amer) Est GFR (Non-Af Amer) POC Glucose (mg/dL) Random Glucose Calcium Phosphorus Magnesium Total Bilirubin AST ALT Alkaline Phosphatase Total Protein Albumin Globulin Albumin/Globulin Ratio Fluid Type Fluid Diff Path Review CSF Appearance CSF WBC CSF RBC CSF Total Cell Counted CSF Neutrophils CSF Lymphocytes CSF Monos/Macrophages CSF Glucose CSF Total Protein CSF Cryptococcus Ag Negative Cryptococcus Ag Negative HIV 1&2 Antibody Screen Negative 10/10/16 10/10/16 10/10/16 12:00 12:18 12:41 WBC RBC Hgb Hct MCV MCH MCHC RDW Plt Count MPV Neut % (Auto) Lymph % (Auto) [place] % (Auto) Eos % (Auto) Baso % (Auto) Neut # Lymph # [place] # Eos # Baso # Neutrophils % (Manual) Band Neutrophils % Lymphocytes % (Manual) Reactive Lymphs % Monocytes % (Manual) Toxic Granulation Platelet Estimate RBC Morphology Puncture Site pCO2 pO2 HCO3 ABG pH ABG Total CO2 ABG O2 Saturation ABG Base Excess ABG Hemoglobin ABG Carboxyhemoglobin POC ABG HHb (Measured) ABG Methemoglobin Nico Test A-a O2 Difference Respiratory Index Hgb O2 Saturation Mechanical Rate FiO2 Tidal Volume PEEP Sodium Potassium Chloride Carbon Dioxide Anion Gap BUN Creatinine Est GFR ( Amer) Est GFR (Non-Af Amer) POC Glucose (mg/dL) 297 H Random Glucose Calcium Phosphorus Magnesium Total Bilirubin AST ALT Alkaline Phosphatase Total Protein Albumin Globulin Albumin/Globulin Ratio Fluid Type Spinal fluid Fluid Diff Path Review CSF Appearance Cloudy CSF WBC 25104.0 H CSF RBC 1135.0 H CSF Total Cell Counted 100 H CSF Neutrophils 99 H CSF Lymphocytes 1.0 H CSF Monos/Macrophages CSF Glucose 78 H CSF Total Protein 436.0 H* CSF Cryptococcus Ag Cryptococcus Ag HIV 1&2 Antibody Screen 10/10/16 17:48 WBC RBC Hgb Hct MCV MCH MCHC RDW Plt Count MPV Neut % (Auto) Lymph % (Auto) [place] % (Auto) Eos % (Auto) Baso % (Auto) Neut # Lymph # [place] # Eos # Baso # Neutrophils % (Manual) Band Neutrophils % Lymphocytes % (Manual) Reactive Lymphs % Monocytes % (Manual) Toxic Granulation Platelet Estimate RBC Morphology Puncture Site pCO2 pO2 HCO3 ABG pH ABG Total CO2 ABG O2 Saturation ABG Base Excess ABG Hemoglobin ABG Carboxyhemoglobin POC ABG HHb (Measured) ABG Methemoglobin Nico Test A-a O2 Difference Respiratory Index Hgb O2 Saturation Mechanical Rate FiO2 Tidal Volume PEEP Sodium Potassium Chloride Carbon Dioxide Anion Gap BUN Creatinine Est GFR ( Amer) Est GFR (Non-Af Amer) POC Glucose (mg/dL) 242 H Random Glucose Calcium Phosphorus Magnesium Total Bilirubin AST ALT Alkaline Phosphatase Total Protein Albumin Globulin Albumin/Globulin Ratio Fluid Type Fluid Diff Path Review CSF Appearance CSF WBC CSF RBC CSF Total Cell Counted CSF Neutrophils CSF Lymphocytes CSF Monos/Macrophages CSF Glucose CSF Total Protein CSF Cryptococcus Ag Cryptococcus Ag HIV 1&2 Antibody Screen Attending/Attestation - Attestation I have personally seen and examined this patient.: Yes I have fully participated in the care of the patient.: Yes I have reviewed all pertinent clinical information: Yes Notes (Text): 10/10/16 18:02 Today: , October 10, 2016 The Patient was seen and examined at the bedside, Medical records reviewed, all clinical/lab/hemodynamic/radiographic data were reviewed and management issues were discussed and formulated, Events reviewed Pain issues, skin care, head of the bed elevation, glycemic control were addressed. Agree with above treatment plans as transcribed in Dr. Andrea torres
--- NOTE | 2016-10-10 17:10 | CP.PCM.CON ---
History of Present Illness - History of Present Illness History of Present Illness: 61 F admitted to ICU for AMS on 10/08/16 AND REFERRED FOR ID EVAL ON WHEN FEVER AND AMS PERSISTED DESPITE IV ANTIBIOTICS AT WHICH TIME LP WAS ORDERED AND MEDICATIONS ADJUSTED Patient's son stated that he came home aroound 830 pm ON 10/08/16 and patient was fine watching TV. He stated around 930 pm that the patient began to complain of headache and nausea. Around 1030 pm, the son woke up after falling asleep to his mother wrenching and dry heaving in the kitchen. When he walked into the kitchen, he saw her vomiting on herself incoherently. At that time, he called 911 and EMS shortly arrived to transport her to [facility]. ROS unobtainable due to AMS and intubation. PMD: Dr. Walters PMH: Asthma, Htn, HLD, DM, Meds: As per EMR Allergies: Codeine, morphine, Avelox, Niacin, Penicillin, Tramadol PSH: C section, D&C x 2, Hysterectomy FH: Mother had breast ca, stroke; Brother has DM Social: Denies smoking, alcohol, and illicit drug use Review of Systems - Review of Systems Systems not reviewed;Unavailable: Altered Mental Status Past Patient History - Infectious Disease Hx of Infectious Diseases: None - Tetanus Immunizations Tetanus Immunization: Unknown - Past Medical History & Family History Past Medical History?: Yes - Past Social History Smoking Status: Never Smoked - CARDIAC Hx Congestive Heart Failure: Yes Hx Hypercholesterolemia: Yes Hx Hypertension: Yes - PULMONARY Hx Asthma: Yes Hx Chronic Obstructive Pulmonary Disease (COPD): Yes - NEUROLOGICAL Hx Migraine: Yes - HEENT Hx HEENT Problems: Yes (Allergic Rhinitis) - RENAL Hx Chronic Kidney Disease: No - ENDOCRINE/METABOLIC Hx Endocrine Disorders: Yes Hx Diabetes Mellitus Type 2: Yes (FROM EMS) - HEMATOLOGICAL/ONCOLOGICAL Hx Anemia: Yes - INTEGUMENTARY Hx Dermatological Problems: No - MUSCULOSKELETAL/RHEUMATOLOGICAL Hx Arthritis: Yes - GASTROINTESTINAL Hx Gastrointestinal Disorders: No - GENITOURINARY/GYNECOLOGICAL Hx Genitourinary Disorders: No - PSYCHIATRIC Hx Anxiety: Yes Hx Depression: Yes Hx Substance Use: No - SURGICAL HISTORY Hx Surgeries: Yes Hx Section: Yes (FROM PRIOVIOUS CHART) Hx Dilation and Curettage: Yes (2013) Other/Comment: D&C (2013) - ANESTHESIA Hx Anesthesia: Yes Hx Anesthesia Reactions: No Hx Malignant Hyperthermia: No Meds Allergies/Adverse Reactions: Allergies Allergy/AdvReac Type Severity Reaction Status Date / Time moxifloxacin HCl Allergy Mild RASH Verified 10/08/16 05:04 [From Avelox] codeine Allergy RASH Verified 10/08/16 05:04 morphine AdvReac RASH Verified 10/08/16 05:04 niacin AdvReac ITCHING Verified 10/08/16 05:04 [From Niaspan Extended-Release] Penicillins AdvReac RASH Verified 10/08/16 05:04 tramadol AdvReac RASH Verified 10/08/16 05:04 - Medications Medications: Current Medications Acetaminophen (Tylenol 650mg/20.3ml Solution Ud) 650 mg NG Q6 PRN PRN Reason: FOR TEMP 101*F OR ABOVE Last Admin: 10/10/16 05:30 Dose: 650 mg Acetazolamide (Diamox 500 Mg Inj) 500 mg IV Q8H [facility] Last Admin: 10/10/16 16:33 Dose: 500 mg Enoxaparin Sodium (Lovenox) 40 mg SC DAILY [facility] Last Admin: 10/10/16 11:05 Dose: 40 mg Azithromycin 500 mg/ Sodium (Chloride) 250 mls @ 250 mls/hr IVPB DAILY [facility] Last Admin: 10/10/16 10:00 Dose: 250 mls/hr Vancomycin/Sodium Chloride (Vancocin) 1 gm in 200 mls @ 133.333 mls/hr IVPB Q12H [facility] Stop: 10/14/16 10:31 Last Admin: 10/10/16 14:25 Dose: 133.333 mls/hr Sodium Chloride (Sodium Chloride 0.9%) 1,000 mls @ 75 mls/hr IV .[id number] [facility] Last Admin: 10/10/16 06:01 Dose: 75 mls/hr Acyclovir 600 mg/ Sodium (Chloride) 100 mls @ 100 mls/hr IV Q8H [facility] Last Admin: 10/10/16 14:32 Dose: 100 mls/hr Ceftriaxone Sodium 2 gm/ (Sodium Chloride) 100 mls @ 100 mls/hr IVPB Q12 [facility] Insulin Human Regular (Novolin R) 0 unit SC Q6 [facility] PRN Reason: Protocol Last Admin: 10/10/16 12:35 Dose: 6 unit Lorazepam (Ativan) 2 mg IVP Q6H PRN PRN Reason: Anxiety Last Admin: 10/10/16 05:30 Dose: 2 mg Pantoprazole Sodium (Protonix Inj) 40 mg IVP DAILY [facility] Last Admin: 10/10/16 09:12 Dose: 40 mg Physical Exam - Constitutional Appears: Confused, Chronically Ill - Head Exam Head Exam: ATRAUMATIC, NORMAL INSPECTION, NORMOCEPHALIC - Eye Exam Eye Exam: absent: Scleral icterus - ENT Exam ENT Exam: Mucous Membranes Dry, Normal External Ear Exam - Neck Exam Neck exam: Negative for: Lymphadenopathy - Respiratory Exam Respiratory Exam: Decreased Breath Sounds, Rhonchi - Cardiovascular Exam Cardiovascular Exam: REGULAR RHYTHM, +S1, +S2 - GI/Abdominal Exam GI & Abdominal Exam: Diminished Bowel Sounds, Distended, Soft. absent: Guarding , Rigid, Tenderness - Rectal Exam Rectal Exam: Deferred - Exam Exam: NORMAL INSPECTION - Extremities Exam Extremities exam: Positive for: pedal pulses present. Negative for: calf tenderness, pedal edema, tenderness - Back Exam Back exam: absent: CVA tenderness (L), CVA tenderness (R) - Neurological Exam Neurological exam: Altered, CN II-XII Intact, Motor Sensory Deficit - Skin Skin Exam: Dry, Intact Results - Vital Signs Recent Vital Signs: Last Vital Signs Temp 99.4 F 10/10/16 12:00 Pulse 97 H 10/10/16 15:38 Resp 28 H 10/10/16 15:38 BP 168/86 H 10/10/16 15:38 Pulse Ox 7 L 10/10/16 15:38 - Labs Result Diagrams: 10/10/16 06:09 10/10/16 06:09 Labs: Laboratory Results - last 24 hr 10/09/16 10/09/16 10/10/16 18:28 23:49 05:31 WBC RBC Hgb Hct MCV MCH MCHC RDW Plt Count MPV Neut % (Auto) Lymph % (Auto) Gulf % (Auto) Eos % (Auto) Baso % (Auto) Neut # Lymph # Gulf # Eos # Baso # Neutrophils % (Manual) Band Neutrophils % Lymphocytes % (Manual) Reactive Lymphs % Monocytes % (Manual) Toxic Granulation Platelet Estimate RBC Morphology Puncture Site Rr pCO2 39 pO2 95 HCO3 26.1 ABG pH 7.43 ABG Total CO2 27.1 ABG O2 Saturation 98.3 H ABG Base Excess 1.5 ABG Hemoglobin 11.8 ABG Carboxyhemoglobin 1.2 POC ABG HHb (Measured) 1.7 ABG Methemoglobin 1.2 Nico Test Pos A-a O2 Difference 337.0 Respiratory Index 3.1 Hgb O2 Saturation 95.9 Mechanical Rate 18 FiO2 70.0 Tidal Volume 500 PEEP 5 Sodium Potassium Chloride Carbon Dioxide Anion Gap BUN Creatinine Est GFR ( Amer) Est GFR (Non-Af Amer) POC Glucose (mg/dL) 305 H 323 H Random Glucose Calcium Phosphorus Magnesium Total Bilirubin AST ALT Alkaline Phosphatase Total Protein Albumin Globulin Albumin/Globulin Ratio Fluid Type Fluid Diff Path Review CSF Appearance CSF WBC CSF RBC CSF Total Cell Counted CSF Neutrophils CSF Lymphocytes CSF Monos/Macrophages CSF Glucose CSF Total Protein CSF Cryptococcus Ag Cryptococcus Ag HIV 1&2 Antibody Screen 10/10/16 10/10/16 10/10/16 05:47 06:09 06:09 WBC 21.0 H RBC 3.90 Hgb 11.4 Hct 34.8 MCV 89.2 MCH 29.3 MCHC 32.8 L RDW 14.1 Plt Count 211 MPV 8.3 Neut % (Auto) 86.2 H Lymph % (Auto) 8.3 L Gulf % (Auto) 5.2 Eos % (Auto) 0.1 Baso % (Auto) 0.2 Neut # 18.1 H Lymph # 1.7 Gulf # 1.1 H Eos # 0.0 Baso # 0.0 Neutrophils % (Manual) 74 Band Neutrophils % 6 H Lymphocytes % (Manual) 12 L Reactive Lymphs % 1 H Monocytes % (Manual) 7 Toxic Granulation Present Platelet Estimate Normal RBC Morphology Normal Puncture Site pCO2 pO2 HCO3 ABG pH ABG Total CO2 ABG O2 Saturation ABG Base Excess ABG Hemoglobin ABG Carboxyhemoglobin POC ABG HHb (Measured) ABG Methemoglobin Nico Test A-a O2 Difference Respiratory Index Hgb O2 Saturation Mechanical Rate FiO2 Tidal Volume PEEP Sodium 142 Potassium 3.9 Chloride 107 Carbon Dioxide 25 Anion Gap 13 BUN 18 H Creatinine 0.6 L Est GFR ( Amer) > 60 Est GFR (Non-Af Amer) > 60 POC Glucose (mg/dL) 271 H Random Glucose 299 H Calcium 9.6 Phosphorus 1.0 L* Magnesium 2.0 Total Bilirubin 0.9 AST 20 ALT 25 Alkaline Phosphatase 99 Total Protein 6.9 Albumin 3.2 L Globulin 3.7 Albumin/Globulin Ratio 0.9 L Fluid Type Fluid Diff Path Review CSF Appearance CSF WBC CSF RBC CSF Total Cell Counted CSF Neutrophils CSF Lymphocytes CSF Monos/Macrophages CSF Glucose CSF Total Protein CSF Cryptococcus Ag Cryptococcus Ag HIV 1&2 Antibody Screen 10/10/16 10/10/16 10/10/16 06:09 06:09 11:01 WBC RBC Hgb Hct MCV MCH MCHC RDW Plt Count MPV Neut % (Auto) Lymph % (Auto) Gulf % (Auto) Eos % (Auto) Baso % (Auto) Neut # Lymph # Gulf # Eos # Baso # Neutrophils % (Manual) Band Neutrophils % Lymphocytes % (Manual) Reactive Lymphs % Monocytes % (Manual) Toxic Granulation Platelet Estimate RBC Morphology Puncture Site pCO2 pO2 HCO3 ABG pH ABG Total CO2 ABG O2 Saturation ABG Base Excess ABG Hemoglobin ABG Carboxyhemoglobin POC ABG HHb (Measured) ABG Methemoglobin Nico Test A-a O2 Difference Respiratory Index Hgb O2 Saturation Mechanical Rate FiO2 Tidal Volume PEEP Sodium Potassium Chloride Carbon Dioxide Anion Gap BUN Creatinine Est GFR ( Amer) Est GFR (Non-Af Amer) POC Glucose (mg/dL) Random Glucose Calcium Phosphorus Magnesium Total Bilirubin AST ALT Alkaline Phosphatase Total Protein Albumin Globulin Albumin/Globulin Ratio Fluid Type Fluid Diff Path Review CSF Appearance CSF WBC CSF RBC CSF Total Cell Counted CSF Neutrophils CSF Lymphocytes CSF Monos/Macrophages CSF Glucose CSF Total Protein CSF Cryptococcus Ag Negative Cryptococcus Ag Negative HIV 1&2 Antibody Screen Negative 10/10/16 10/10/16 10/10/16 12:00 12:18 12:41 WBC RBC Hgb Hct MCV MCH MCHC RDW Plt Count MPV Neut % (Auto) Lymph % (Auto) Gulf % (Auto) Eos % (Auto) Baso % (Auto) Neut # Lymph # Gulf # Eos # Baso # Neutrophils % (Manual) Band Neutrophils % Lymphocytes % (Manual) Reactive Lymphs % Monocytes % (Manual) Toxic Granulation Platelet Estimate RBC Morphology Puncture Site pCO2 pO2 HCO3 ABG pH ABG Total CO2 ABG O2 Saturation ABG Base Excess ABG Hemoglobin ABG Carboxyhemoglobin POC ABG HHb (Measured) ABG Methemoglobin Nico Test A-a O2 Difference Respiratory Index Hgb O2 Saturation Mechanical Rate FiO2 Tidal Volume PEEP Sodium Potassium Chloride Carbon Dioxide Anion Gap BUN Creatinine Est GFR ( Amer) Est GFR (Non-Af Amer) POC Glucose (mg/dL) 297 H Random Glucose Calcium Phosphorus Magnesium Total Bilirubin AST ALT Alkaline Phosphatase Total Protein Albumin Globulin Albumin/Globulin Ratio Fluid Type Spinal fluid Fluid Diff Path Review CSF Appearance Cloudy CSF WBC 69688.0 H CSF RBC 1135.0 H CSF Total Cell Counted 100 H CSF Neutrophils 99 H CSF Lymphocytes 1.0 H CSF Monos/Macrophages CSF Glucose 78 H CSF Total Protein 436.0 H* CSF Cryptococcus Ag Cryptococcus Ag HIV 1&2 Antibody Screen Assessment & Plan (1) Meningitis Status: Acute (2) Meningitis Status: Acute (3) Acute confusional state Status: Acute (4) Encephalopathy acute Status: Acute Priority: High (5) Pneumonia Status: Acute (6) Sepsis Status: Acute - Assessment and Plan (Free Text) Assessment: CONSIDER ADDING STEROIDS IF OK WITH NEURO CONT IV VANCO/ ROCEPHIN MAY ADD GENTA FOR LISTERIA/ ALLERGIC TO PCN
--- NOTE | 2016-10-10 18:40 | CP.PCM.PN ---
Subjective - Date & Time of Evaluation Date of Evaluation: 10/10/16 Time of Evaluation: 13:00 - Subjective Subjective: Mrs. Caraballo was seen and examined today at bedside after the lumbar puncture was completed. She is neurologically unchanged. Still intubated, unresponsive off sedation. CSF analysis revealed extremely elevated WBC, mostly PMN, consistent with bacterial meningitis. Opening pressure was 53. Objective - Vital Signs/Intake and Output Vital Signs (last 24 hours): Temp Pulse Resp BP Pulse Ox 99.4 F 100 H 28 H 122/61 94 L 10/10/16 12:00 10/10/16 17:04 10/10/16 17:04 10/10/16 17:04 10/10/16 17:04 Intake and Output: 10/10/16 10/10/16 06:59 18:59 Intake Total 1558 1345 Output Total 1800 1675 Balance -242 -330 - Medications Medications: Current Medications Acetaminophen (Tylenol 650mg/20.3ml Solution Ud) 650 mg NG Q6 PRN PRN Reason: FOR TEMP 101*F OR ABOVE Last Admin: 10/10/16 05:30 Dose: 650 mg Acetazolamide (Diamox 500 Mg Inj) 500 mg IV Q8H [facility] Last Admin: 10/10/16 16:33 Dose: 500 mg Enoxaparin Sodium (Lovenox) 40 mg SC DAILY [facility] Last Admin: 10/10/16 11:05 Dose: 40 mg Azithromycin 500 mg/ Sodium (Chloride) 250 mls @ 250 mls/hr IVPB DAILY [facility] Last Admin: 10/10/16 10:00 Dose: 250 mls/hr Vancomycin/Sodium Chloride (Vancocin) 1 gm in 200 mls @ 133.333 mls/hr IVPB Q12H [facility] Stop: 10/14/16 10:31 Last Admin: 10/10/16 14:25 Dose: 133.333 mls/hr Sodium Chloride (Sodium Chloride 0.9%) 1,000 mls @ 75 mls/hr IV .[id number] [facility] Last Admin: 10/10/16 06:01 Dose: 75 mls/hr Acyclovir 600 mg/ Sodium (Chloride) 100 mls @ 100 mls/hr IV Q8H [facility] Last Admin: 10/10/16 14:32 Dose: 100 mls/hr Ceftriaxone Sodium 2 gm/ (Sodium Chloride) 100 mls @ 100 mls/hr IVPB Q12 [facility] Insulin Human Regular (Novolin R) 0 unit SC Q6 [facility] PRN Reason: Protocol Last Admin: 10/10/16 18:10 Dose: 4 unit Lorazepam (Ativan) 2 mg IVP Q6H PRN PRN Reason: Anxiety Last Admin: 10/10/16 05:30 Dose: 2 mg Pantoprazole Sodium (Protonix Inj) 40 mg IVP DAILY [facility] Last Admin: 10/10/16 09:12 Dose: 40 mg - Labs Labs: 10/10/16 06:09 10/10/16 06:09 PT 16.5 SECONDS (9.7-12.2) H 10/09/16 12:53 INR 1.4 10/09/16 12:53 APTT 39 SECONDS (21-34) H 10/09/16 12:53 - Neurological Exam Additional comments: Neurologically unchanged. GCS is 3T. Assessment and Plan (1) Bacterial meningoencephalitis Assessment & Plan: Continue empiric antibiotics per ID. I agree that steroids may be beneficial. Decadron at 10 mg Q8 hours may be started. The elevated CSF pressure is concerning and we may start Diamox to decrease CSF production. Status: Acute
[2016-10-10] MEDS: cefTRIAXone 2 GM in Sodium Chloride 0.9% 100 ML IVPB SCH (21:00)
[2016-10-11] MEDS: (Novolin R) Insulin Human Regular 100 units/ml vial SC SCH ×3 (00:35→19:31)
[2016-10-11] MEDS: Acetaminophen 650mg/20.3ml solution UD NG PRN (02:09)
[2016-10-11 05:44] LABS: ABG ALLEN TEST POS; ABG MECHANICAL RATE 18; ATERIAL BLOOD GAS PEEP 5; CARBOXYHEMOGLOBIN 1.1 % (0.5-1.5); DRAW SITE RR; HHB 1.7 % (0.0-5.0); METHEMOGLOBIN 1.2 % (0.0-3.0)
[2016-10-11 06:31] LABS: BASO # 0.1 K/uL (0.0-0.2); BASO % 0.3 % (0.0-2.0); EOS % 0.1 % (0.0-4.0); LYMPH # 1.6 K/uL (1.0-4.3); MEAN CELL VOLUME 90.2 fL (81.0-99.0); MEAN CORPUSCULAR HEMOGLOBIN 29.5 pg (27.0-31.0); MEAN CORPUSCULAR HGB CONC 32.7 g/dL (33.0-37.0); MEAN PLATELET VOLUME 8.3 fL (7.2-11.7); MONO # 0.4 K/uL (0.0-0.8); MONO % 2.5 % (0.0-10.0); PLATELET COUNT 258 K/uL (130-400); RED CELL DISTRIBUTION WIDTH 13.6 % (11.5-14.5); WHITE BLOOD COUNT 17.5 K/uL (4.8-10.8)
[2016-10-11 06:42] LABS: CHLORIDE 112 mmol/L (98-107)
[2016-10-11 06:43] LABS: POTASSIUM 4.1 mmol/L (3.6-5.2); SODIUM 143 mmol/L (132-148)
[2016-10-11 06:45] LABS: ALB/GLOB RATIO 0.8 (1.0-2.1); ALKALINE PHOSPHATASE 105 U/L (38-126); AST/SGOT 20 U/L (14-36); BILIRUBIN,TOTAL 0.8 mg/dL (0.2-1.3); BLOOD UREA NITROGEN 26 mg/dL (7-17); CARBON DIOXIDE 18 mmol/L (22-30); GFR AFRICAN-AMERICAN > 60; TOTAL PROTEIN 6.7 g/dL (6.3-8.3)
[2016-10-11 06:46] LABS: ALT/SGPT 22 U/L (9-52); CALCIUM 9.7 mg/dl (8.6-10.4); MAGNESIUM 2.1 mg/dL (1.6-2.3); PHOSPHOROUS 2.1 mg/dL (2.5-4.5)
[2016-10-11 06:49] LABS: GLUCOSE,RANDOM 427 mg/dL (65-105)
[2016-10-11 07:45] LABS: TOTAL CELLS COUNTED 100
[2016-10-11 07:47] LABS: BASOPHIL 1 % (0-2); NEUTROPHIL 80 % (50-75)
[2016-10-11] MEDS: Azithromycin 500 MG in Sodium Chloride 0.9% 250 ML IVPB SCH (10:09)
[2016-10-11] MEDS: Enoxaparin 40 mg Syringe SC SCH (10:10)
[2016-10-11] MEDS ORDERED: (Novolin R) Insulin Human Regular 100 units/ml vial IV ONE (10:26)
[2016-10-11] MEDS ORDERED: Insulin Human Regular 100 UNIT in Sodium Chloride 0.9% 99 ML IV SCH (11:15)
--- NOTE | 2016-10-11 11:28 | RAD ---
PROCEDURE: CHEST RADIOGRAPH, 1 VIEW HISTORY: Intubated COMPARISON: None available. FINDINGS: LUNGS: Clear. PLEURA: No pneumothorax or pleural fluid seen. CARDIOVASCULAR: ETT and NG tube unchanged. OSSEOUS STRUCTURES: No significant abnormalities. VISUALIZED UPPER ABDOMEN: Normal. OTHER FINDINGS: None. IMPRESSION: No active disease.
[2016-10-11] MEDS: Sodium Chloride 0.9% 1,000 ML IV SCH ×2 (11:30→22:35)
[2016-10-11] MEDS: cefTRIAXone 2 GM in Sodium Chloride 0.9% 100 ML IVPB SCH (11:47)
--- NOTE | 2016-10-11 12:51 | PCM.SURG1 ---
Surgeon's Initial Post Op Note - Surgeon's Notes Surgeon: Beltran Montanez Assistant Professor Nurse Education: NONE Type of Anesthesia: Local Pre-Operative Diagnosis: Encephalitis Operative Findings: Lumbar puncture performed. Opening pressure 53. CSF slightly cloudy. Post-Operative Diagnosis: Encephalitis Operation Performed: Lumbar puncture. Specimen/Specimens Removed: 10 cc of CSF. Estimated Blood Loss: EBL {In ML}: 0 Blood Products Given: N/A Drains Used: No Drains Post-Op Condition: Poor Date of Surgery/Procedure: 10/10/16 Time of Surgery/Procedure: 10:50
[2016-10-11] MEDS: Insulin Human Regular 100 UNIT in Sodium Chloride 0.9% 99 ML IV PRN (13:10)
--- NOTE | 2016-10-11 13:11 | CP.PCM.PN ---
Subjective - Date & Time of Evaluation Date of Evaluation: 10/11/16 Time of Evaluation: 13:01 - Subjective Subjective: Mrs. Caraballo was seen and examined today at bedside in the ICU. She continues to be intubated, off sedation, and unresponsive. Some grimace was noted to pain today. Vent adjustments were made to decrease FiO2 to 40. The CSF culture is pending. Objective - Vital Signs/Intake and Output Vital Signs (last 24 hours): Temp Pulse Resp BP Pulse Ox 99.5 F 97 H 25 H 172/93 H 95 10/11/16 08:00 10/11/16 10:04 10/11/16 10:04 10/11/16 10:05 10/11/16 10:04 Intake and Output: 10/11/16 10/11/16 06:59 18:59 Intake Total 1760 105 Output Total 1385 115 Balance 375 -10 - Medications Medications: Current Medications Acetaminophen (Tylenol 650mg/20.3ml Solution Ud) 650 mg NG Q6 PRN PRN Reason: FOR TEMP 101*F OR ABOVE Last Admin: 10/11/16 02:09 Dose: 650 mg Acetazolamide (Diamox 500 Mg Inj) 500 mg IV Q8H [facility] Last Admin: 10/11/16 08:54 Dose: 500 mg Artificial Tears (Lacri-Lube) 1 gm OU BID [facility] Dexamethasone (Decadron Inj) 10 mg IVP Q8 [facility] Stop: 10/13/16 19:13 Last Admin: 10/11/16 06:28 Dose: 10 mg Enoxaparin Sodium (Lovenox) 40 mg SC DAILY [facility] Last Admin: 10/11/16 10:10 Dose: 40 mg Azithromycin 500 mg/ Sodium (Chloride) 250 mls @ 250 mls/hr IVPB DAILY [facility] Last Admin: 10/11/16 10:09 Dose: 250 mls/hr Vancomycin/Sodium Chloride (Vancocin) 1 gm in 200 mls @ 133.333 mls/hr IVPB Q12H [facility] Stop: 10/14/16 10:31 Last Admin: 10/10/16 23:56 Dose: 133.333 mls/hr Sodium Chloride (Sodium Chloride 0.9%) 1,000 mls @ 75 mls/hr IV .[id number] [facility] Last Admin: 10/10/16 19:00 Dose: Not Given Ceftriaxone Sodium 2 gm/ (Sodium Chloride) 100 mls @ 100 mls/hr IVPB Q12 [facility] Last Admin: 10/10/16 21:00 Dose: 100 mls/hr Insulin Human Regular 100 unit (/ Sodium Chloride) 100 mls @ 10 mls/hr IV .Q10H PRN; Protocol; 10 UNIT/HR PRN Reason: .TITR Insulin Human Regular (Novolin R) 0 unit SC Q6 [facility] PRN Reason: Protocol Last Admin: 10/11/16 06:30 Dose: 10 unit Lorazepam (Ativan) 2 mg IVP Q6H PRN PRN Reason: Anxiety Last Admin: 10/10/16 05:30 Dose: 2 mg Pantoprazole Sodium (Protonix Inj) 40 mg IVP DAILY [facility] Last Admin: 10/11/16 10:10 Dose: 40 mg - Labs Labs: 10/11/16 06:27 10/11/16 06:27 PT 16.5 SECONDS (9.7-12.2) H 10/09/16 12:53 INR 1.4 10/09/16 12:53 APTT 39 SECONDS (21-34) H 10/09/16 12:53 - Constitutional Appears: Toxic - Head Exam Head Exam: ATRAUMATIC, NORMAL INSPECTION, NORMOCEPHALIC - Eye Exam Eye Exam: Conjunctival injection Additional comments: left eye is proptotic and has injection with eruption - ENT Exam ENT Exam: Mucous Membranes Moist, Normal Exam - Respiratory Exam Additional comments: Intubated on AC - Cardiovascular Exam Cardiovascular Exam: REGULAR RHYTHM, +S1, +S2. absent: Murmur - GI/Abdominal Exam GI & Abdominal Exam: Soft, Normal Bowel Sounds. absent: Tenderness - Rectal Exam Rectal Exam: Deferred - Neurological Exam Additional comments: Pupils are reactive, corneal reflex is present, breathing over the vent. Grimace on pain stimulus. No movement. No eye opening. GCS 4T Assessment and Plan (1) Bacterial meningoencephalitis Assessment & Plan: Continue antibiotics per ID. Would D/C acyclovir. Continue Decadron. Follow up on CSF culture. Start 3% to increase serum sodium to 145-150. Follow serum sodium and osm Q8. Status: Acute
[2016-10-11] MEDS: Vancomycin 1 gm/NS 200 ml 1 GM/200 ML BAG IVPB SCH (13:17)
[2016-10-11] MEDS: White Petrolatum/Mineral Oil Ophth Oint(3.5 gm) OU SCH ×2 (13:24→18:25)
--- NOTE | 2016-10-11 14:13 | CP.PCM.PN ---
Subjective - Date & Time of Evaluation Date of Evaluation: 10/11/16 Time of Evaluation: 08:00 - Subjective Subjective: intubated, off sedation, and unresponsive Objective - Vital Signs/Intake and Output Vital Signs (last 24 hours): Temp Pulse Resp BP Pulse Ox 99.5 F 90 21 191/92 H 93 L 10/11/16 08:00 10/11/16 13:00 10/11/16 13:00 10/11/16 12:40 10/11/16 13:00 Intake and Output: 10/11/16 10/11/16 06:59 18:59 Intake Total 1760 210 Output Total 1385 245 Balance 375 -35 - Medications Medications: Current Medications Acetaminophen (Tylenol 650mg/20.3ml Solution Ud) 650 mg NG Q6 PRN PRN Reason: FOR TEMP 101*F OR ABOVE Last Admin: 10/11/16 02:09 Dose: 650 mg Acetazolamide (Diamox 500 Mg Inj) 500 mg IV Q8H [facility] Last Admin: 10/11/16 08:54 Dose: 500 mg Artificial Tears (Lacri-Lube) 1 gm OU BID [facility] Last Admin: 10/11/16 13:24 Dose: 1 gm Dexamethasone (Decadron Inj) 10 mg IVP Q8 [facility] Stop: 10/13/16 19:13 Last Admin: 10/11/16 06:28 Dose: 10 mg Enoxaparin Sodium (Lovenox) 40 mg SC DAILY [facility] Last Admin: 10/11/16 10:10 Dose: 40 mg Azithromycin 500 mg/ Sodium (Chloride) 250 mls @ 250 mls/hr IVPB DAILY [facility] Last Admin: 10/11/16 10:09 Dose: 250 mls/hr Vancomycin/Sodium Chloride (Vancocin) 1 gm in 200 mls @ 133.333 mls/hr IVPB Q12H [facility] Stop: 10/14/16 10:31 Last Admin: 10/11/16 13:17 Dose: 133.333 mls/hr Sodium Chloride (Sodium Chloride 0.9%) 1,000 mls @ 75 mls/hr IV .[id number] [facility] Last Admin: 10/11/16 11:30 Dose: 75 mls/hr Ceftriaxone Sodium 2 gm/ (Sodium Chloride) 100 mls @ 100 mls/hr IVPB Q12 [facility] Last Admin: 10/11/16 11:47 Dose: 100 mls/hr Insulin Human Regular 100 unit (/ Sodium Chloride) 100 mls @ 10 mls/hr IV .Q10H PRN; Protocol; 10 UNIT/HR PRN Reason: .TITR Last Admin: 10/11/16 13:10 Dose: 10 unit/hr, 10 mls/hr Insulin Human Regular (Novolin R) 0 unit SC Q6 [facility] PRN Reason: Protocol Last Admin: 10/11/16 06:30 Dose: 10 unit Lorazepam (Ativan) 2 mg IVP Q6H PRN PRN Reason: Anxiety Last Admin: 10/10/16 05:30 Dose: 2 mg Pantoprazole Sodium (Protonix Inj) 40 mg IVP DAILY [facility] Last Admin: 10/11/16 10:10 Dose: 40 mg Sodium Chloride (Hypertonic Saline 3%) 250 ml IV ONCE ONE Stop: 10/11/16 13:17 - Labs Labs: 10/11/16 06:27 10/11/16 06:27 PT 16.5 SECONDS (9.7-12.2) H 10/09/16 12:53 INR 1.4 10/09/16 12:53 APTT 39 SECONDS (21-34) H 10/09/16 12:53 - Constitutional Appears: Toxic - Head Exam Head Exam: NORMOCEPHALIC - Eye Exam Eye Exam: absent: Scleral icterus - ENT Exam ENT Exam: Mucous Membranes Dry - Neck Exam Neck Exam: absent: Lymphadenopathy - Respiratory Exam Respiratory Exam: Decreased Breath Sounds, Rhonchi - Cardiovascular Exam Cardiovascular Exam: REGULAR RHYTHM, +S1, +S2 - GI/Abdominal Exam GI & Abdominal Exam: Distended, Soft - Rectal Exam Rectal Exam: Deferred - Exam Exam: NORMAL INSPECTION - Extremities Exam Extremities Exam: absent: Pedal Edema - Back Exam Back Exam: absent: CVA tenderness (L), CVA tenderness (R), paraspinal tenderness - Neurological Exam Neurological Exam: Altered Assessment and Plan (1) Meningitis Status: Acute (2) Meningitis Status: Acute (3) Acute confusional state Status: Acute (4) Encephalopathy acute Status: Acute (5) Pneumonia Status: Acute (6) Sepsis Status: Acute - Assessment and Plan (Free Text) Assessment: cont hi dose antibiotics/ steroids poor prognosis
--- NOTE | 2016-10-11 14:44 | CP.CCUPN ---
<Miguel Mendez - Last Filed: 10/11/16 14:36> CCU Subjective - Physician Review Subjective (Free Text): 10/11/16 14:36 PGY-1 ICU progress note Pt seen and examined at bedside. Pt intubated, off sedation, still unresponsive. No issues overnight. Febrile during the night Critical Care Time Spent (in minutes): 35 CCU Objective - Vital Signs / Intake & Output Vital Signs (Last 4 hours): Vital Signs Pulse Resp BP Pulse Ox 10/11/16 13:00 90 21 93 L 10/11/16 12:40 104 H 29 H 191/92 H 94 L 10/11/16 12:00 104 H 30 H 93 L 10/11/16 11:04 96 H 22 179/92 H 95 10/11/16 11:00 98 H 26 H 95 Intake and Output (Last 8hrs): Intake & Output 10/10/16 10/11/16 10/11/16 22:59 06:59 14:59 Intake Total 1040 1140 210 Output Total 940 920 245 Balance 100 220 -35 Weight 235 lb 4 oz Intake: Intake, IV Amount 800 900 150 Right Forearm 375 Right Hand 225 600 150 Right Proximal Port 200 300 Forearm Tube Feeding 240 240 60 Output: Urine 940 920 245 Urethral (Santiago) 940 920 245 - Physical Exam Head: Positive for: Atraumatic, Normocephalic Pupils: Positive for: Sluggish Mouth: Positive for: Moist Mucous Membranes Respiratory/Chest: Positive for: Rhonchi, Other (intubated) Cardiovascular: Positive for: Normal S1, S2, Tachycardic Abdomen: Positive for: Normal Bowel Sounds. Negative for: Distention Upper Extremity: Positive for: NORMAL PULSES, Neurovascularly Intact Lower Extremity: Positive for: NORMAL PULSES, Neurovascularly Intact Neurological: Positive for: Other (unresponsive) Skin: Positive for: Warm, Dry - Medications Active Medications: Active Medications Generic Name Dose Route Start Last Admin Trade Name Freq PRN Reason Stop Dose Admin Acetaminophen 650 mg 10/09/16 00:41 10/11/16 02:09 Tylenol 650mg/20.3ml Solution Ud NG 650 mg Q6 PRN Administration FOR TEMP 101*F OR ABOVE Acetazolamide 500 mg 10/10/16 16:00 10/11/16 08:54 Diamox 500 Mg Inj IV 500 mg Q8H MINI Administration Artificial Tears 1 gm 10/11/16 10:30 10/11/16 13:24 Lacri-Lube OU 1 gm BID MINI Administration Dexamethasone 10 mg 10/10/16 22:00 10/11/16 14:32 Decadron Inj IVP 10/13/16 19:13 10 mg Q8 MINI Administration Enoxaparin Sodium 40 mg 10/09/16 17:30 10/11/16 10:10 Lovenox SC 40 mg DAILY MINI Administration Vancomycin/Sodium Chloride 1 gm in 200 mls @ 133.333 mls/hr 10/09/16 10:30 13:17 Vancocin IVPB 10/14/16 10:31 133.333 mls/hr Q12H MINI Administration Sodium Chloride 1,000 mls @ 75 mls/hr 10/09/16 17:12 10/11/16 11:30 Sodium Chloride 0.9% IV 75 mls/hr .[id number] MINI Administration Ceftriaxone Sodium 2 gm/ 100 mls @ 100 mls/hr 10/10/16 22:00 10/11/16 11:47 Sodium Chloride IVPB 100 mls/hr Q12 MINI Administration Insulin Human Regular 100 unit 100 mls @ 10 mls/hr 10/11/16 12:00 10/11/16 13 :10 / Sodium Chloride IV 10 unit/hr .Q10H PRN 10 mls/hr .TITR Administration Protocol 10 UNIT/HR Insulin Human Regular 0 unit 10/09/16 09:24 10/11/16 06:30 Novolin R SC 10 unit Q6 MINI Administration Protocol Lorazepam 2 mg 10/09/16 21:06 10/10/16 05:30 Ativan IVP 2 mg Q6H PRN Administration Anxiety Pantoprazole Sodium 40 mg 10/08/16 10:00 10/11/16 10:10 Protonix Inj IVP 40 mg DAILY MINI Administration Sodium Chloride 250 ml 10/11/16 13:16 Hypertonic Saline 3% IV 10/11/16 13:17 ONCE ONE - Patient Studies Lab Studies: Microbiology Studies 10/10/16 10:57 Gram Stain - Final Cerebral Spinal Fluid CSF Culture - Preliminary NO GROWTH AFTER 24 HOURS Lab Studies 10/11/16 10/11/16 10/11/16 Range/Units 12:25 06:27 06:27 WBC 17.5 H (4.8-10.8) K/uL RBC 3.88 (3.80-5.20) Mil/uL Hgb 11.5 (11.0-16.0) g/dL Hct 35.0 (34.0-47.0) % MCV 90.2 (81.0-99.0) fL MCH 29.5 (27.0-31.0) pg MCHC 32.7 L (33.0-37.0) g/dL RDW 13.6 (11.5-14.5) % Plt Count 258 (130-400) K/uL MPV 8.3 (7.2-11.7) fL Neut % (Auto) 88.1 H (50.0-75.0) % Lymph % (Auto) 9.0 L (20.0-40.0) % Weak[place] % (Auto) 2.5 (0.0-10.0) % Eos % (Auto) 0.1 (0.0-4.0) % Baso % (Auto) 0.3 (0.0-2.0) % Neut # 15.4 H (1.8-7.0) K/uL Lymph # 1.6 (1.0-4.3) K/uL Weakley # 0.4 (0.0-0.8) K/uL Eos # 0.0 (0.0-0.7) K/uL Baso # 0.1 (0.0-0.2) K/uL Neutrophils % (Manual) 80 H (50-75) % Band Neutrophils % 9 H (0-2) % Lymphocytes % (Manual) 8 L (20-40) % Monocytes % (Manual) 2 (0-10) % Basophils % (Manual) 1 (0-2) % Toxic Granulation Present Platelet Estimate Normal (NORMAL) RBC Morphology Normal Puncture Site pCO2 (35-45) mm/Hg pO2 (80-100) mm/Hg HCO3 (21-28) mmol/L ABG pH (7.35-7.45) ABG Total CO2 (22-28) mmol/L ABG O2 Saturation (95-98) % ABG Base Excess (-2.0-3.0) mmol/L ABG Hemoglobin (11.7-17.4) g/dL ABG Carboxyhemoglobin (0.5-1.5) % POC ABG HHb (Measured) (0.0-5.0) % ABG Methemoglobin (0.0-3.0) % Nico Test A-a O2 Difference mm/Hg Respiratory Index Hgb O2 Saturation (95.0-98.0) % Mechanical Rate FiO2 % Tidal Volume PEEP Sodium 143 (132-148) mmol/L Potassium 4.1 (3.6-5.2) mmol/L Chloride 112 H (98-107) mmol/L Carbon Dioxide 18 L (22-30) mmol/L Anion Gap 17 (10-20) BUN 26 H (7-17) mg/dL Creatinine 0.7 (0.7-1.2) MG/DL Est GFR ( Amer) > 60 Est GFR (Non-Af Amer) > 60 POC Glucose (mg/dL) 357 H (65-110) mg/dL Random Glucose 427 H* D (65-105) mg/dL Calcium 9.7 (8.6-10.4) mg/dl Phosphorus 2.1 L (2.5-4.5) mg/dL Magnesium 2.1 (1.6-2.3) mg/dL Total Bilirubin 0.8 (0.2-1.3) mg/dL AST 20 (14-36) U/L ALT 22 (9-52) U/L Alkaline Phosphatase 105 (38-126) U/L Total Protein 6.7 (6.3-8.3) g/dL Albumin 3.0 L (3.5-5.0) g/dL Globulin 3.6 (2.2-3.9) gm/dL Albumin/Globulin Ratio 0.8 L (1.0-2.1) CSF Cryptococcus Ag (NEGATIVE) 10/11/16 10/11/16 10/11/16 Range/Units 06:23 05:31 00:50 WBC (4.8-10.8) K/uL RBC (3.80-5.20) Mil/uL Hgb (11.0-16.0) g/dL Hct (34.0-47.0) % MCV (81.0-99.0) fL MCH (27.0-31.0) pg MCHC (33.0-37.0) g/dL RDW (11.5-14.5) % Plt Count (130-400) K/uL MPV (7.2-11.7) fL Neut % (Auto) (50.0-75.0) % Lymph % (Auto) (20.0-40.0) % Weak[place] % (Auto) (0.0-10.0) % Eos % (Auto) (0.0-4.0) % Baso % (Auto) (0.0-2.0) % Neut # (1.8-7.0) K/uL Lymph # (1.0-4.3) K/uL Weak[place] # (0.0-0.8) K/uL Eos # (0.0-0.7) K/uL Baso # (0.0-0.2) K/uL Neutrophils % (Manual) (50-75) % Band Neutrophils % (0-2) % Lymphocytes % (Manual) (20-40) % Monocytes % (Manual) (0-10) % Basophils % (Manual) (0-2) % Toxic Granulation Platelet Estimate (NORMAL) RBC Morphology Puncture Site Rr pCO2 36 (35-45) mm/Hg pO2 104 H (80-100) mm/Hg HCO3 19.5 L (21-28) mmol/L ABG pH 7.32 L (7.35-7.45) ABG Total CO2 19.6 L (22-28) mmol/L ABG O2 Saturation 98.3 H (95-98) % ABG Base Excess -6.9 L (-2.0-3.0) mmol/L ABG Hemoglobin 11.6 L (11.7-17.4) g/dL ABG Carboxyhemoglobin 1.1 (0.5-1.5) % POC ABG HHb (Measured) 1.7 (0.0-5.0) % ABG Methemoglobin 1.2 (0.0-3.0) % Nico Test Pos A-a O2 Difference 342.0 mm/Hg Respiratory Index 3.1 Hgb O2 Saturation 96.0 (95.0-98.0) % Mechanical Rate 18 FiO2 70.0 % Tidal Volume 500 PEEP 5 Sodium (132-148) mmol/L Potassium (3.6-5.2) mmol/L Chloride (98-107) mmol/L Carbon Dioxide (22-30) mmol/L Anion Gap (10-20) BUN (7-17) mg/dL Creatinine (0.7-1.2) MG/DL Est GFR ( Amer) Est GFR (Non-Af Amer) POC Glucose (mg/dL) 390 H 248 H (65-110) mg/dL Random Glucose (65-105) mg/dL Calcium (8.6-10.4) mg/dl Phosphorus (2.5-4.5) mg/dL Magnesium (1.6-2.3) mg/dL Total Bilirubin (0.2-1.3) mg/dL AST (14-36) U/L ALT (9-52) U/L Alkaline Phosphatase (38-126) U/L Total Protein (6.3-8.3) g/dL Albumin (3.5-5.0) g/dL Globulin (2.2-3.9) gm/dL Albumin/Globulin Ratio (1.0-2.1) CSF Cryptococcus Ag (NEGATIVE) 10/10/16 10/10/16 Range/Units 17:48 11:01 WBC (4.8-10.8) K/uL RBC (3.80-5.20) Mil/uL Hgb (11.0-16.0) g/dL Hct (34.0-47.0) % MCV (81.0-99.0) fL MCH (27.0-31.0) pg MCHC (33.0-37.0) g/dL RDW (11.5-14.5) % Plt Count (130-400) K/uL MPV (7.2-11.7) fL Neut % (Auto) (50.0-75.0) % Lymph % (Auto) (20.0-40.0) % [place] % (Auto) (0.0-10.0) % Eos % (Auto) (0.0-4.0) % Baso % (Auto) (0.0-2.0) % Neut # (1.8-7.0) K/uL Lymph # (1.0-4.3) K/uL Weak[place] # (0.0-0.8) K/uL Eos # (0.0-0.7) K/uL Baso # (0.0-0.2) K/uL Neutrophils % (Manual) (50-75) % Band Neutrophils % (0-2) % Lymphocytes % (Manual) (20-40) % Monocytes % (Manual) (0-10) % Basophils % (Manual) (0-2) % Toxic Granulation Platelet Estimate (NORMAL) RBC Morphology Puncture Site pCO2 (35-45) mm/Hg pO2 (80-100) mm/Hg HCO3 (21-28) mmol/L ABG pH (7.35-7.45) ABG Total CO2 (22-28) mmol/L ABG O2 Saturation (95-98) % ABG Base Excess (-2.0-3.0) mmol/L ABG Hemoglobin (11.7-17.4) g/dL ABG Carboxyhemoglobin (0.5-1.5) % POC ABG HHb (Measured) (0.0-5.0) % ABG Methemoglobin (0.0-3.0) % Nico Test A-a O2 Difference mm/Hg Respiratory Index Hgb O2 Saturation (95.0-98.0) % Mechanical Rate FiO2 % Tidal Volume PEEP Sodium (132-148) mmol/L Potassium (3.6-5.2) mmol/L Chloride (98-107) mmol/L Carbon Dioxide (22-30) mmol/L Anion Gap (10-20) BUN (7-17) mg/dL Creatinine (0.7-1.2) MG/DL Est GFR ( Amer) Est GFR (Non-Af Amer) POC Glucose (mg/dL) 242 H (65-110) mg/dL Random Glucose (65-105) mg/dL Calcium (8.6-10.4) mg/dl Phosphorus (2.5-4.5) mg/dL Magnesium (1.6-2.3) mg/dL Total Bilirubin (0.2-1.3) mg/dL AST (14-36) U/L ALT (9-52) U/L Alkaline Phosphatase (38-126) U/L Total Protein (6.3-8.3) g/dL Albumin (3.5-5.0) g/dL Globulin (2.2-3.9) gm/dL Albumin/Globulin Ratio (1.0-2.1) CSF Cryptococcus Ag Negative (NEGATIVE) Laboratory Results - last 24 hr 10/10/16 10/10/16 10/11/16 11:01 17:48 00:50 WBC RBC Hgb Hct MCV MCH MCHC RDW Plt Count MPV Neut % (Auto) Lymph % (Auto) Weak[place] % (Auto) Eos % (Auto) Baso % (Auto) Neut # Lymph # Weak[place] # Eos # Baso # Neutrophils % (Manual) Band Neutrophils % Lymphocytes % (Manual) Monocytes % (Manual) Basophils % (Manual) Toxic Granulation Platelet Estimate RBC Morphology Puncture Site pCO2 pO2 HCO3 ABG pH ABG Total CO2 ABG O2 Saturation ABG Base Excess ABG Hemoglobin ABG Carboxyhemoglobin POC ABG HHb (Measured) ABG Methemoglobin Nico Test A-a O2 Difference Respiratory Index Hgb O2 Saturation Mechanical Rate FiO2 Tidal Volume PEEP Sodium Potassium Chloride Carbon Dioxide Anion Gap BUN Creatinine Est GFR ( Amer) Est GFR (Non-Af Amer) POC Glucose (mg/dL) 242 H 248 H Random Glucose Calcium Phosphorus Magnesium Total Bilirubin AST ALT Alkaline Phosphatase Total Protein Albumin Globulin Albumin/Globulin Ratio CSF Cryptococcus Ag Negative 10/11/16 10/11/16 10/11/16 05:31 06:23 06:27 WBC 17.5 H RBC 3.88 Hgb 11.5 Hct 35.0 MCV 90.2 MCH 29.5 MCHC 32.7 L RDW 13.6 Plt Count 258 MPV 8.3 Neut % (Auto) 88.1 H Lymph % (Auto) 9.0 L Weakley % (Auto) 2.5 Eos % (Auto) 0.1 Baso % (Auto) 0.3 Neut # 15.4 H Lymph # 1.6 Weakley # 0.4 Eos # 0.0 Baso # 0.1 Neutrophils % (Manual) 80 H Band Neutrophils % 9 H Lymphocytes % (Manual) 8 L Monocytes % (Manual) 2 Basophils % (Manual) 1 Toxic Granulation Present Platelet Estimate Normal RBC Morphology Normal Puncture Site Rr pCO2 36 pO2 104 H HCO3 19.5 L ABG pH 7.32 L ABG Total CO2 19.6 L ABG O2 Saturation 98.3 H ABG Base Excess -6.9 L ABG Hemoglobin 11.6 L ABG Carboxyhemoglobin 1.1 POC ABG HHb (Measured) 1.7 ABG Methemoglobin 1.2 Nico Test Pos A-a O2 Difference 342.0 Respiratory Index 3.1 Hgb O2 Saturation 96.0 Mechanical Rate 18 FiO2 70.0 Tidal Volume 500 PEEP 5 Sodium Potassium Chloride Carbon Dioxide Anion Gap BUN Creatinine Est GFR ( Amer) Est GFR (Non-Af Amer) POC Glucose (mg/dL) 390 H Random Glucose Calcium Phosphorus Magnesium Total Bilirubin AST ALT Alkaline Phosphatase Total Protein Albumin Globulin Albumin/Globulin Ratio CSF Cryptococcus Ag 10/11/16 10/11/16 06:27 12:25 WBC RBC Hgb Hct MCV MCH MCHC RDW Plt Count MPV Neut % (Auto) Lymph % (Auto) Weak[place] % (Auto) Eos % (Auto) Baso % (Auto) Neut # Lymph # Weak[place] # Eos # Baso # Neutrophils % (Manual) Band Neutrophils % Lymphocytes % (Manual) Monocytes % (Manual) Basophils % (Manual) Toxic Granulation Platelet Estimate RBC Morphology Puncture Site pCO2 pO2 HCO3 ABG pH ABG Total CO2 ABG O2 Saturation ABG Base Excess ABG Hemoglobin ABG Carboxyhemoglobin POC ABG HHb (Measured) ABG Methemoglobin Nico Test A-a O2 Difference Respiratory Index Hgb O2 Saturation Mechanical Rate FiO2 Tidal Volume PEEP Sodium 143 Potassium 4.1 Chloride 112 H Carbon Dioxide 18 L Anion Gap 17 BUN 26 H Creatinine 0.7 Est GFR ( Amer) > 60 Est GFR (Non-Af Amer) > 60 POC Glucose (mg/dL) 357 H Random Glucose 427 H* D Calcium 9.7 Phosphorus 2.1 L Magnesium 2.1 Total Bilirubin 0.8 AST 20 ALT 22 Alkaline Phosphatase 105 Total Protein 6.7 Albumin 3.0 L Globulin 3.6 Albumin/Globulin Ratio 0.8 L CSF Cryptococcus Ag Fingerstick Blood Sugar Results: 357 Review of Systems - Review of Systems Systems not reviewed;Unavailable: Intubated Assessment/Plan - Assessment and Plan (Free Text) Assessment: This is a 61 yo F that is in respiratory failure, intubated and unresponsive secondary to likely bacterial meningitis. Plan: Neuro: Off sedation, unresponsive Initial Head CT negative, but shows some cerebral edema CTA head and neck is limited study, but no evidence of CVA Neurology consulted LP done, opening pressure noted to be very elevated at 53. CSF fluid collected - Tot prot, glucose, culture, gram stain, cell count/diff, cryptococcus, [place], HSV all sent. CSF shows WBC count extremely elevated at 20k with elevated total protein as well - likely bacterial meningitis Continue rocephin and vancomycin High dose steroids added Will give bolus of 3% NS to decrease cerebral edema. Started Acetazolamide Considering MRI of brain - however unable with pt on ventilator support at this time. No MRI safe equipment at [facility] Cardiovascular: Tachycardic but hemodynamically stable. Monitor Pulmonary: Intubated. Saturating well. Consolidative changes in the left hilar on CXR Continue rocephin and vanco Gastrointestinal: No acute issues, on tube feeds, tolerating well. Hematology: No acute issues Endocrine: Blood sugars uncontrolled, started insulin drip Renal: Monitor electrolytes Strict I/O - good urine output Infectious Disease: LP done, opening pressure noted to be very elevated at 53. CSF fluid collected - Tot prot, glucose, culture, gram stain, cell count/diff, cryptococcus, [place], HSV all sent. CSF shows WBC count extremely elevated at 20k with elevated total protein as well - likely bacterial meningitis Persistent leukocytosis (Bandemia trending down), elevated procalcitonin and febrile during the night Blood cultures positive for strep pneumo - pansensitive Cont ocephin and vanc High dose steroids ID following - f/u recs GI Prophylaxis: Protonix DVT Prophylaxis: Lovenox <Ashanti,Rj - Last Filed: 10/11/16 17:22> CCU Objective - Vital Signs / Intake & Output Vital Signs (Last 4 hours): Vital Signs Temp Pulse Resp BP Pulse Ox 10/11/16 16:50 98 H 27 H 164/75 H 93 L 10/11/16 16:21 106 H 29 H 160/79 H 96 10/11/16 16:00 100.2 F H 91 H 20 95 10/11/16 15:50 98 H 21 149/67 93 L 10/11/16 15:21 98 H 21 135/61 94 L 10/11/16 15:00 89 20 96 10/11/16 14:51 97 H 24 154/75 H 97 10/11/16 14:00 88 22 97 Intake and Output (Last 8hrs): Intake & Output 10/11/16 10/11/16 10/11/16 06:59 14:59 22:59 Intake Total 1140 210 0 Output Total 920 245 Balance 220 -35 0 Weight 235 lb 4 oz Intake: IV 0 0 Intake, IV Amount 900 150 Right Hand 600 150 Right Proximal Port 300 Forearm Tube Feeding 240 60 Output: Urine 920 245 Urethral (Santiago) 920 245 - Medications Active Medications: Active Medications Generic Name Dose Route Start Last Admin Trade Name Freq PRN Reason Stop Dose Admin Acetaminophen 650 mg 10/09/16 00:41 10/11/16 02:09 Tylenol 650mg/20.3ml Solution Ud NG 650 mg Q6 PRN Administration FOR TEMP 101*F OR ABOVE Acetazolamide 500 mg 10/10/16 16:00 10/11/16 16:25 Diamox 500 Mg Inj IV 500 mg Q8H MINI Administration Artificial Tears 1 gm 10/11/16 10:30 10/11/16 13:24 Lacri-Lube OU 1 gm BID MINI Administration Dexamethasone 10 mg 10/10/16 22:00 10/11/16 14:32 Decadron Inj IVP 10/13/16 19:13 10 mg Q8 MINI Administration Enoxaparin Sodium 40 mg 10/09/16 17:30 10/11/16 10:10 Lovenox SC 40 mg DAILY MINI Administration Vancomycin/Sodium Chloride 1 gm in 200 mls @ 133.333 mls/hr 10/09/16 10:30 13:17 Vancocin IVPB 10/14/16 10:31 133.333 mls/hr Q12H MINI Administration Sodium Chloride 1,000 mls @ 75 mls/hr 10/09/16 17:12 10/11/16 11:30 Sodium Chloride 0.9% IV 75 mls/hr .[id number] MINI Administration Ceftriaxone Sodium 2 gm/ 100 mls @ 100 mls/hr 10/10/16 22:00 10/11/16 11:47 Sodium Chloride IVPB 100 mls/hr Q12 MINI Administration Insulin Human Regular 100 unit 100 mls @ 10 mls/hr 10/11/16 12:00 10/11/16 16 :09 / Sodium Chloride IV 6 unit/hr .Q10H PRN 6 mls/hr .TITR Titration Protocol 10 UNIT/HR Lorazepam 2 mg 10/09/16 21:06 10/10/16 05:30 Ativan IVP 2 mg Q6H PRN Administration Anxiety Pantoprazole Sodium 40 mg 10/08/16 10:00 10/11/16 10:10 Protonix Inj IVP 40 mg DAILY MINI Administration - Patient Studies Lab Studies: Microbiology Studies 10/10/16 10:57 Gram Stain - Final Cerebral Spinal Fluid CSF Culture - Preliminary NO GROWTH AFTER 24 HOURS Lab Studies 10/11/16 10/11/16 10/11/16 Range/Units 16:01 14:54 12:25 WBC (4.8-10.8) K/uL RBC (3.80-5.20) Mil/uL Hgb (11.0-16.0) g/dL Hct (34.0-47.0) % MCV (81.0-99.0) fL MCH (27.0-31.0) pg MCHC (33.0-37.0) g/dL RDW (11.5-14.5) % Plt Count (130-400) K/uL MPV (7.2-11.7) fL Neut % (Auto) (50.0-75.0) % Lymph % (Auto) (20.0-40.0) % Weak[place] % (Auto) (0.0-10.0) % Eos % (Auto) (0.0-4.0) % Baso % (Auto) (0.0-2.0) % Neut # (1.8-7.0) K/uL Lymph # (1.0-4.3) K/uL Weak[place] # (0.0-0.8) K/uL Eos # (0.0-0.7) K/uL Baso # (0.0-0.2) K/uL Neutrophils % (Manual) (50-75) % Band Neutrophils % (0-2) % Lymphocytes % (Manual) (20-40) % Monocytes % (Manual) (0-10) % Basophils % (Manual) (0-2) % Toxic Granulation Platelet Estimate (NORMAL) RBC Morphology Puncture Site pCO2 (35-45) mm/Hg pO2 (80-100) mm/Hg HCO3 (21-28) mmol/L ABG pH (7.35-7.45) ABG Total CO2 (22-28) mmol/L ABG O2 Saturation (95-98) % ABG Base Excess (-2.0-3.0) mmol/L ABG Hemoglobin (11.7-17.4) g/dL ABG Carboxyhemoglobin (0.5-1.5) % POC ABG HHb (Measured) (0.0-5.0) % ABG Methemoglobin (0.0-3.0) % Nico Test A-a O2 Difference mm/Hg Respiratory Index Hgb O2 Saturation (95.0-98.0) % Mechanical Rate FiO2 % Tidal Volume PEEP Sodium (132-148) mmol/L Potassium (3.6-5.2) mmol/L Chloride (98-107) mmol/L Carbon Dioxide (22-30) mmol/L Anion Gap (10-20) BUN (7-17) mg/dL Creatinine (0.7-1.2) MG/DL Est GFR ( Amer) Est GFR (Non-Af Amer) POC Glucose (mg/dL) 279 H 302 H 357 H (65-110) mg/dL Random Glucose (65-105) mg/dL Calcium (8.6-10.4) mg/dl Phosphorus (2.5-4.5) mg/dL Magnesium (1.6-2.3) mg/dL Total Bilirubin (0.2-1.3) mg/dL AST (14-36) U/L ALT (9-52) U/L Alkaline Phosphatase (38-126) U/L Total Protein (6.3-8.3) g/dL Albumin (3.5-5.0) g/dL Globulin (2.2-3.9) gm/dL Albumin/Globulin Ratio (1.0-2.1) 10/11/16 10/11/16 10/11/16 Range/Units 06:27 06:27 06:23 WBC 17.5 H (4.8-10.8) K/uL RBC 3.88 (3.80-5.20) Mil/uL Hgb 11.5 (11.0-16.0) g/dL Hct 35.0 (34.0-47.0) % MCV 90.2 (81.0-99.0) fL MCH 29.5 (27.0-31.0) pg MCHC 32.7 L (33.0-37.0) g/dL RDW 13.6 (11.5-14.5) % Plt Count 258 (130-400) K/uL MPV 8.3 (7.2-11.7) fL Neut % (Auto) 88.1 H (50.0-75.0) % Lymph % (Auto) 9.0 L (20.0-40.0) % Weak[place] % (Auto) 2.5 (0.0-10.0) % Eos % (Auto) 0.1 (0.0-4.0) % Baso % (Auto) 0.3 (0.0-2.0) % Neut # 15.4 H (1.8-7.0) K/uL Lymph # 1.6 (1.0-4.3) K/uL Weakley # 0.4 (0.0-0.8) K/uL Eos # 0.0 (0.0-0.7) K/uL Baso # 0.1 (0.0-0.2) K/uL Neutrophils % (Manual) 80 H (50-75) % Band Neutrophils % 9 H (0-2) % Lymphocytes % (Manual) 8 L (20-40) % Monocytes % (Manual) 2 (0-10) % Basophils % (Manual) 1 (0-2) % Toxic Granulation Present Platelet Estimate Normal (NORMAL) RBC Morphology Normal Puncture Site pCO2 (35-45) mm/Hg pO2 (80-100) mm/Hg HCO3 (21-28) mmol/L ABG pH (7.35-7.45) ABG Total CO2 (22-28) mmol/L ABG O2 Saturation (95-98) % ABG Base Excess (-2.0-3.0) mmol/L ABG Hemoglobin (11.7-17.4) g/dL ABG Carboxyhemoglobin (0.5-1.5) % POC ABG HHb (Measured) (0.0-5.0) % ABG Methemoglobin (0.0-3.0) % Nico Test A-a O2 Difference mm/Hg Respiratory Index Hgb O2 Saturation (95.0-98.0) % Mechanical Rate FiO2 % Tidal Volume PEEP Sodium 143 (132-148) mmol/L Potassium 4.1 (3.6-5.2) mmol/L Chloride 112 H (98-107) mmol/L Carbon Dioxide 18 L (22-30) mmol/L Anion Gap 17 (10-20) BUN 26 H (7-17) mg/dL Creatinine 0.7 (0.7-1.2) MG/DL Est GFR ( Amer) > 60 Est GFR (Non-Af Amer) > 60 POC Glucose (mg/dL) 390 H (65-110) mg/dL Random Glucose 427 H* D (65-105) mg/dL Calcium 9.7 (8.6-10.4) mg/dl Phosphorus 2.1 L (2.5-4.5) mg/dL Magnesium 2.1 (1.6-2.3) mg/dL Total Bilirubin 0.8 (0.2-1.3) mg/dL AST 20 (14-36) U/L ALT 22 (9-52) U/L Alkaline Phosphatase 105 (38-126) U/L Total Protein 6.7 (6.3-8.3) g/dL Albumin 3.0 L (3.5-5.0) g/dL Globulin 3.6 (2.2-3.9) gm/dL Albumin/Globulin Ratio 0.8 L (1.0-2.1) 10/11/16 10/11/16 10/10/16 Range/Units 05:31 00:50 17:48 WBC (4.8-10.8) K/uL RBC (3.80-5.20) Mil/uL Hgb (11.0-16.0) g/dL Hct (34.0-47.0) % MCV (81.0-99.0) fL MCH (27.0-31.0) pg MCHC (33.0-37.0) g/dL RDW (11.5-14.5) % Plt Count (130-400) K/uL MPV (7.2-11.7) fL Neut % (Auto) (50.0-75.0) % Lymph % (Auto) (20.0-40.0) % [place] % (Auto) (0.0-10.0) % Eos % (Auto) (0.0-4.0) % Baso % (Auto) (0.0-2.0) % Neut # (1.8-7.0) K/uL Lymph # (1.0-4.3) K/uL Weak[place] # (0.0-0.8) K/uL Eos # (0.0-0.7) K/uL Baso # (0.0-0.2) K/uL Neutrophils % (Manual) (50-75) % Band Neutrophils % (0-2) % Lymphocytes % (Manual) (20-40) % Monocytes % (Manual) (0-10) % Basophils % (Manual) (0-2) % Toxic Granulation Platelet Estimate (NORMAL) RBC Morphology Puncture Site Rr pCO2 36 (35-45) mm/Hg pO2 104 H (80-100) mm/Hg HCO3 19.5 L (21-28) mmol/L ABG pH 7.32 L (7.35-7.45) ABG Total CO2 19.6 L (22-28) mmol/L ABG O2 Saturation 98.3 H (95-98) % ABG Base Excess -6.9 L (-2.0-3.0) mmol/L ABG Hemoglobin 11.6 L (11.7-17.4) g/dL ABG Carboxyhemoglobin 1.1 (0.5-1.5) % POC ABG HHb (Measured) 1.7 (0.0-5.0) % ABG Methemoglobin 1.2 (0.0-3.0) % Nico Test Pos A-a O2 Difference 342.0 mm/Hg Respiratory Index 3.1 Hgb O2 Saturation 96.0 (95.0-98.0) % Mechanical Rate 18 FiO2 70.0 % Tidal Volume 500 PEEP 5 Sodium (132-148) mmol/L Potassium (3.6-5.2) mmol/L Chloride (98-107) mmol/L Carbon Dioxide (22-30) mmol/L Anion Gap (10-20) BUN (7-17) mg/dL Creatinine (0.7-1.2) MG/DL Est GFR ( Amer) Est GFR (Non-Af Amer) POC Glucose (mg/dL) 248 H 242 H (65-110) mg/dL Random Glucose (65-105) mg/dL Calcium (8.6-10.4) mg/dl Phosphorus (2.5-4.5) mg/dL Magnesium (1.6-2.3) mg/dL Total Bilirubin (0.2-1.3) mg/dL AST (14-36) U/L ALT (9-52) U/L Alkaline Phosphatase (38-126) U/L Total Protein (6.3-8.3) g/dL Albumin (3.5-5.0) g/dL Globulin (2.2-3.9) gm/dL Albumin/Globulin Ratio (1.0-2.1) Laboratory Results - last 24 hr 10/10/16 10/11/16 10/11/16 17:48 00:50 05:31 WBC RBC Hgb Hct MCV MCH MCHC RDW Plt Count MPV Neut % (Auto) Lymph % (Auto) [place] % (Auto) Eos % (Auto) Baso % (Auto) Neut # Lymph # [place] # Eos # Baso # Neutrophils % (Manual) Band Neutrophils % Lymphocytes % (Manual) Monocytes % (Manual) Basophils % (Manual) Toxic Granulation Platelet Estimate RBC Morphology Puncture Site Rr pCO2 36 pO2 104 H HCO3 19.5 L ABG pH 7.32 L ABG Total CO2 19.6 L ABG O2 Saturation 98.3 H ABG Base Excess -6.9 L ABG Hemoglobin 11.6 L ABG Carboxyhemoglobin 1.1 POC ABG HHb (Measured) 1.7 ABG Methemoglobin 1.2 Nico Test Pos A-a O2 Difference 342.0 Respiratory Index 3.1 Hgb O2 Saturation 96.0 Mechanical Rate 18 FiO2 70.0 Tidal Volume 500 PEEP 5 Sodium Potassium Chloride Carbon Dioxide Anion Gap BUN Creatinine Est GFR ( Amer) Est GFR (Non-Af Amer) POC Glucose (mg/dL) 242 H 248 H Random Glucose Calcium Phosphorus Magnesium Total Bilirubin AST ALT Alkaline Phosphatase Total Protein Albumin Globulin Albumin/Globulin Ratio 10/11/16 10/11/16 10/11/16 06:23 06:27 06:27 WBC 17.5 H RBC 3.88 Hgb 11.5 Hct 35.0 MCV 90.2 MCH 29.5 MCHC 32.7 L RDW 13.6 Plt Count 258 MPV 8.3 Neut % (Auto) 88.1 H Lymph % (Auto) 9.0 L [place] % (Auto) 2.5 Eos % (Auto) 0.1 Baso % (Auto) 0.3 Neut # 15.4 H Lymph # 1.6 Weak[place] # 0.4 Eos # 0.0 Baso # 0.1 Neutrophils % (Manual) 80 H Band Neutrophils % 9 H Lymphocytes % (Manual) 8 L Monocytes % (Manual) 2 Basophils % (Manual) 1 Toxic Granulation Present Platelet Estimate Normal RBC Morphology Normal Puncture Site pCO2 pO2 HCO3 ABG pH ABG Total CO2 ABG O2 Saturation ABG Base Excess ABG Hemoglobin ABG Carboxyhemoglobin POC ABG HHb (Measured) ABG Methemoglobin Nico Test A-a O2 Difference Respiratory Index Hgb O2 Saturation Mechanical Rate FiO2 Tidal Volume PEEP Sodium 143 Potassium 4.1 Chloride 112 H Carbon Dioxide 18 L Anion Gap 17 BUN 26 H Creatinine 0.7 Est GFR ( Amer) > 60 Est GFR (Non-Af Amer) > 60 POC Glucose (mg/dL) 390 H Random Glucose 427 H* D Calcium 9.7 Phosphorus 2.1 L Magnesium 2.1 Total Bilirubin 0.8 AST 20 ALT 22 Alkaline Phosphatase 105 Total Protein 6.7 Albumin 3.0 L Globulin 3.6 Albumin/Globulin Ratio 0.8 L 10/11/16 10/11/16 10/11/16 12:25 14:54 16:01 WBC RBC Hgb Hct MCV MCH MCHC RDW Plt Count MPV Neut % (Auto) Lymph % (Auto) [place] % (Auto) Eos % (Auto) Baso % (Auto) Neut # Lymph # [place] # Eos # Baso # Neutrophils % (Manual) Band Neutrophils % Lymphocytes % (Manual) Monocytes % (Manual) Basophils % (Manual) Toxic Granulation Platelet Estimate RBC Morphology Puncture Site pCO2 pO2 HCO3 ABG pH ABG Total CO2 ABG O2 Saturation ABG Base Excess ABG Hemoglobin ABG Carboxyhemoglobin POC ABG HHb (Measured) ABG Methemoglobin [place] Test A-a O2 Difference Respiratory Index Hgb O2 Saturation Mechanical Rate FiO2 Tidal Volume PEEP Sodium Potassium Chloride Carbon Dioxide Anion Gap BUN Creatinine Est GFR ( Amer) Est GFR (Non-Af Amer) POC Glucose (mg/dL) 357 H 302 H 279 H Random Glucose Calcium Phosphorus Magnesium Total Bilirubin AST ALT Alkaline Phosphatase Total Protein Albumin Globulin Albumin/Globulin Ratio Attending/Attestation - Attestation I have personally seen and examined this patient.: Yes I have fully participated in the care of the patient.: Yes I have reviewed all pertinent clinical information: Yes Notes (Text): 10/11/16 17:19 Pt seen and examined on rounds with Dr. Mendez and pt RN. All pertinent PN/labs/ meds/imaging reviewed personally and discussed with involved consultants. I agree with the assessment and plan as outlined above which reflects my direct input. remains essentially unresponsive on vent off sedatives hemodynamics stable; no pressors d/w neuro: will get MRI if possible; bolus HTS and aim to keep Na 145-150 weaning vent; doubt will be able to extubate given poor mental status and neuro exam check echo rpt cultures taper abx -- call lab to get sensitivities can d/c acyclovir, azithro and vanco if ok with ID cont decadron start insulin gtt TF to goal GI / DVT PPx prognosis guarded Rj Burrell MD
[2016-10-11] MEDS ORDERED: Sodium Chloride 3% 250 ML IV ONE (15:00)
--- NOTE | 2016-10-11 18:26 | PCM.PROC ---
Procedures Attestation:: I certify that I have explained the specified Operation(s) or Procedure(s), risks, benefits and reasonable alternatives to the Patient and/or other person responsible. The opportunity was given to ask questions and all questions answered - Central Line Placement Right Internal Jugular Triple Lumen Catheter Aseptic technique was employed throughout the procedure: Hand Hygiene done prior to procedure, Full sterile barriers (mask, hair cover, sterile gown, sterile gloves), Full body sterile drape, Chloraprep Antiseptic: 30 second prep for IJ or SC sites Central Line Prep: Chlorhexidine-Alcohol Combination Local Anesthesia Used: Lidocaine 1% Ultrasound Used for Placement: Yes Central Line Lumen Inserted: triple Central Line Length: 16 cm Post Procedure: Sutured in Place, Good Blood Return, All Ports Aspirated, Flushed, Capped, Sterile Dressing Applied Secured by: Suture Post procedure dressing: Chlorhexidine disc (Biopatch) Post Procedure X-Ray: Yes Patient Tolerated Procedure: Well Immediate Complications: None
[2016-10-11 20:00] LABS: WNV IGG CSF 3.64; WNV IGM CSF 0.22
[2016-10-12] MEDS ORDERED: (Lantus) Insulin Glargine, Recombinant SC SCH ×2 (00:26→16:01)
[2016-10-12] MEDS: Propofol 10 mg/ml 1,000 MG/100 ML VIAL IV PRN ×2 (00:46→12:44)
[2016-10-12 04:41] LABS: ABG ALLEN TEST POS; ABG MECHANICAL RATE 18; ARTERIAL BLOOD HGB O2 SAT 96.7 % (95.0-98.0); ATERIAL BLOOD GAS PEEP 10; CARBOXYHEMOGLOBIN 1.3 % (0.5-1.5); DRAW SITE RR; HHB 1.1 % (0.0-5.0); METHEMOGLOBIN 0.8 % (0.0-3.0)
[2016-10-12] MEDS: Insulin Human Regular 100 UNIT in Sodium Chloride 0.9% 99 ML IV PRN ×2 (05:00→23:35)
[2016-10-12] MEDS: Sodium Chloride 0.9% 1,000 ML IV SCH ×3 (06:00→21:54)
[2016-10-12 06:37] LABS: BASO # 0.1 K/uL (0.0-0.2); BASO % 0.3 % (0.0-2.0); HEMATOCRIT 36.7 % (34.0-47.0); LYMPH # 1.4 K/uL (1.0-4.3); LYMPH % 7.1 % (20.0-40.0); MEAN CELL VOLUME 89.7 fL (81.0-99.0); MEAN CORPUSCULAR HEMOGLOBIN 28.8 pg (27.0-31.0); MEAN CORPUSCULAR HGB CONC 32.1 g/dL (33.0-37.0); MEAN PLATELET VOLUME 8.4 fL (7.2-11.7); MONO # 0.5 K/uL (0.0-0.8); MONO % 2.8 % (0.0-10.0); NRBC % 0.1 % (0.0-2.0); PLATELET COUNT 284 K/uL (130-400); RED CELL DISTRIBUTION WIDTH 14.1 % (11.5-14.5); WHITE BLOOD COUNT 19.1 K/uL (4.8-10.8)
[2016-10-12 06:49] LABS: CHLORIDE 121 mmol/L (98-107)
[2016-10-12 06:50] LABS: POTASSIUM 3.7 mmol/L (3.6-5.2); SODIUM 149 mmol/L (132-148)
[2016-10-12 06:52] LABS: ALB/GLOB RATIO 0.8 (1.0-2.1); ALKALINE PHOSPHATASE 83 U/L (38-126); AST/SGOT 32 U/L (14-36); BILIRUBIN,TOTAL 0.6 mg/dL (0.2-1.3); BLOOD UREA NITROGEN 28 mg/dL (7-17); CARBON DIOXIDE 16 mmol/L (22-30); GFR AFRICAN-AMERICAN > 60; GLUCOSE,RANDOM 278 mg/dL (65-105); TOTAL PROTEIN 6.6 g/dL (6.3-8.3)
[2016-10-12 06:53] LABS: ALT/SGPT 25 U/L (9-52); CALCIUM 9.5 mg/dl (8.6-10.4); MAGNESIUM 2.4 mg/dL (1.6-2.3); PHOSPHOROUS 1.6 mg/dL (2.5-4.5)
[2016-10-12] MEDS ORDERED: Sodium Phosphate 30 MMOLE in Sodium Chloride 0.9% 250 ML IV ONE (08:30)
[2016-10-12] MEDS ORDERED: Potassium Phosphate 30 MMOLE in Sodium Chloride 0.9% 250 ML IV ONE (08:30)
[2016-10-12] MEDS: cefTRIAXone 2 GM in Sodium Chloride 0.9% 100 ML IVPB SCH ×2 (09:10→21:00)
[2016-10-12] MEDS: Pantoprazole 40 mg Susp UD PO SCH (09:15)
[2016-10-12] MEDS: Enoxaparin 40 mg Syringe SC SCH (09:15)
[2016-10-12] MEDS: White Petrolatum/Mineral Oil Ophth Oint(3.5 gm) OU SCH ×2 (09:16→17:14)
[2016-10-12 10:10] LABS: LARGE PLATELETS PRESENT; METAMYELOCYTE 1 % (0-0); NEUTROPHIL 86 % (50-75); TOTAL CELLS COUNTED 100
--- NOTE | 2016-10-12 10:47 | CP.CCUPN ---
CCU Subjective - Physician Review Subjective (Free Text): 10/12/16 10:40 no overnight events. remains essentially unresponsive on vent Tm 100s. VSS -- no pressors Gen: unresponsive HEENT: Pupils dilated; sluggish. L eye erythematous. ETT/NGT Neck: Supple COR: S1, S2, RRR Resp: coarse rhonchi b/l ABD: Soft, nt/nd, BS +ve Ext: no edema Neuro: unresponsive. no response to verbal or noxious stimuli. B/L LE triple flexion Meds / Labs / Imaging reviewed independently as noted below. A/P: 61M with severe sepsis/MOSF likely 2/2 meningitis (most likely S. pneumo) ; s. pneumo bacteremia and poss pna; acute hypoxic resp failure Neuro: neuro f/u noted; maintain Na 145-150. check daily serum Osm. MRI when feasible. Resp: wean vent as tolerated; f/u ABG/CXR -- doubt pt will wean given poor neuro exam; if family desires, will need trach / peg in near future Cards: hemodynamically stable; f/u rpt echo GI: TF; GI PPx Renal: UOP adequate; replete lytes ID: on rocephin and vanc; acyclovir/azithro d/c'd. f/u rpt echo and blood cx for clearance; high dose steroids Endo: Insulin gtt; start SQ insulin Heme: SCDs; Hep sq dvt ppx prognosis quite guarded Rj Burrell MD CC time spent 45min 10/12/16 10:47 CCU Objective - Vital Signs / Intake & Output Vital Signs (Last 4 hours): Vital Signs Temp Pulse Resp BP Pulse Ox 10/12/16 09:00 97.9 F 72 20 99 10/12/16 08:00 97.6 F 86 24 150/81 99 10/12/16 07:21 82 18 158/87 H 100 10/12/16 07:00 71 18 99 10/12/16 06:51 72 18 138/75 99 Intake and Output (Last 8hrs): Intake & Output 10/11/16 10/12/16 10/12/16 22:59 06:59 14:59 Intake Total 1146.9 1124.2 159.9 Output Total 2224 664 83 Balance -1077.1 460.2 76.9 Weight 252 lb 5 oz Intake: IV 0 100 32 Intake, IV Amount 876.9 704.2 87.9 Right Hand 595 Right Jug TLC Distal 13.9 55.2 6.9 Right Jug TLC Medial 225 600 75 Right Jug TLC Proximal 16 49 6 Right Upper Extremity 27 Tube Feeding 270 320 40 Output: Urine 2224 664 83 Urethral (Santiago) 2224 664 83 - Medications Active Medications: Active Medications Generic Name Dose Route Start Last Admin Trade Name Freq PRN Reason Stop Dose Admin Acetaminophen 650 mg 10/09/16 00:41 10/11/16 02:09 Tylenol 650mg/20.3ml Solution Ud NG 650 mg Q6 PRN Administration FOR TEMP 101*F OR ABOVE Artificial Tears 1 gm 10/11/16 10:30 10/12/16 09:16 Lacri-Lube OU 1 gm BID MINI Administration Dexamethasone 10 mg 10/10/16 22:00 10/12/16 05:59 Decadron Inj IVP 10/13/16 19:13 10 mg Q8 MINI Administration Enoxaparin Sodium 40 mg 10/09/16 17:30 10/12/16 09:15 Lovenox SC 40 mg DAILY MINI Administration Vancomycin/Sodium Chloride 1 gm in 200 mls @ 133.333 mls/hr 10/09/16 10:30 13:17 Vancocin IVPB 10/14/16 10:31 133.333 mls/hr Q12H MINI Administration Sodium Chloride 1,000 mls @ 75 mls/hr 10/09/16 17:12 10/12/16 06:00 Sodium Chloride 0.9% IV 75 mls/hr .[id number] MINI Administration Ceftriaxone Sodium 2 gm/ 100 mls @ 100 mls/hr 10/10/16 22:00 10/12/16 09:10 Sodium Chloride IVPB 100 mls/hr Q12 MINI Administration Insulin Human Regular 100 unit 100 mls @ 10 mls/hr 10/11/16 12:00 10/12/16 09 :00 / Sodium Chloride IV 6 unit/hr .Q10H PRN 6 mls/hr .TITR Titration Protocol 10 UNIT/HR Propofol 1,000 mg in 100 mls @ 3.201 mls/hr 10/12/16 00:25 10/12/16 00:46 Diprivan IV 5 mcg/kg/min .Q24H PRN 3.201 mls/hr TITRATE PER MD ORDER Administration Protocol 5 MCG/KG/MIN Sodium Phosphate 30 mmole/ 260 mls @ 63 mls/hr 10/12/16 08:30 10/12/16 09:13 Sodium Chloride IV 10/12/16 12:37 63 mls/hr ONCE ONE Administration Insulin Glargine 12 unit 10/12/16 00:26 10/12/16 00:47 Lantus SC 12 u HS MINI Administration Lorazepam 2 mg 10/09/16 21:06 10/10/16 05:30 Ativan IVP 2 mg Q6H PRN Administration Anxiety Pantoprazole Sodium 40 mg 10/12/16 10:00 10/12/16 09:15 Protonix Susp PO 40 mg DAILY MIIN Administration - Patient Studies Lab Studies: Microbiology Studies 10/10/16 10:57 Gram Stain - Final Cerebral Spinal Fluid CSF Culture - Preliminary NO GROWTH AFTER 24 HOURS Lab Studies 10/12/16 10/12/16 10/12/16 Range/Units 10:11 10:05 09:06 WBC (4.8-10.8) K/uL RBC (3.80-5.20) Mil/uL Hgb (11.0-16.0) g/dL Hct (34.0-47.0) % MCV (81.0-99.0) fL MCH (27.0-31.0) pg MCHC (33.0-37.0) g/dL RDW (11.5-14.5) % Plt Count (130-400) K/uL MPV (7.2-11.7) fL Neut % (Auto) (50.0-75.0) % Lymph % (Auto) (20.0-40.0) % Hemphill % (Auto) (0.0-10.0) % Eos % (Auto) (0.0-4.0) % Baso % (Auto) (0.0-2.0) % Neut # (1.8-7.0) K/uL Lymph # (1.0-4.3) K/uL Hemphill # (0.0-0.8) K/uL Eos # (0.0-0.7) K/uL Baso # (0.0-0.2) K/uL Neutrophils % (Manual) (50-75) % Band Neutrophils % (0-2) % Lymphocytes % (Manual) (20-40) % Monocytes % (Manual) (0-10) % Metamyelocytes % (0-0) % Toxic Granulation Platelet Estimate (NORMAL) Large Platelets Anisocytosis (manual) Puncture Site pCO2 (35-45) mm/Hg pO2 (80-100) mm/Hg HCO3 (21-28) mmol/L ABG pH (7.35-7.45) ABG Total CO2 (22-28) mmol/L ABG O2 Saturation (95-98) % ABG Base Excess (-2.0-3.0) mmol/L ABG Hemoglobin (11.7-17.4) g/dL ABG Carboxyhemoglobin (0.5-1.5) % POC ABG HHb (Measured) (0.0-5.0) % ABG Methemoglobin (0.0-3.0) % Nico Test A-a O2 Difference mm/Hg Respiratory Index Hgb O2 Saturation (95.0-98.0) % Mechanical Rate FiO2 % Tidal Volume PEEP Sodium (132-148) mmol/L Potassium (3.6-5.2) mmol/L Chloride (98-107) mmol/L Carbon Dioxide (22-30) mmol/L Anion Gap (10-20) BUN (7-17) mg/dL Creatinine (0.7-1.2) MG/DL Est GFR ( Amer) Est GFR (Non-Af Amer) POC Glucose (mg/dL) 309 H 268 H 274 H (65-110) mg/dL Random Glucose (65-105) mg/dL Serum Osmolality (272-300) mosm/kg Calcium (8.6-10.4) mg/dl Phosphorus (2.5-4.5) mg/dL Magnesium (1.6-2.3) mg/dL Total Bilirubin (0.2-1.3) mg/dL AST (14-36) U/L ALT (9-52) U/L Alkaline Phosphatase (38-126) U/L Total Protein (6.3-8.3) g/dL Albumin (3.5-5.0) g/dL Globulin (2.2-3.9) gm/dL Albumin/Globulin Ratio (1.0-2.1) CSF West Nile IgG Ab CSF West Nile IgM Ab 10/12/16 10/12/16 10/12/16 Range/Units 08:39 08:04 07:40 WBC (4.8-10.8) K/uL RBC (3.80-5.20) Mil/uL Hgb (11.0-16.0) g/dL Hct (34.0-47.0) % MCV (81.0-99.0) fL MCH (27.0-31.0) pg MCHC (33.0-37.0) g/dL RDW (11.5-14.5) % Plt Count (130-400) K/uL MPV (7.2-11.7) fL Neut % (Auto) (50.0-75.0) % Lymph % (Auto) (20.0-40.0) % Hemphill % (Auto) (0.0-10.0) % Eos % (Auto) (0.0-4.0) % Baso % (Auto) (0.0-2.0) % Neut # (1.8-7.0) K/uL Lymph # (1.0-4.3) K/uL Hemphill # (0.0-0.8) K/uL Eos # (0.0-0.7) K/uL Baso # (0.0-0.2) K/uL Neutrophils % (Manual) (50-75) % Band Neutrophils % (0-2) % Lymphocytes % (Manual) (20-40) % Monocytes % (Manual) (0-10) % Metamyelocytes % (0-0) % Toxic Granulation Platelet Estimate (NORMAL) Large Platelets Anisocytosis (manual) Puncture Site pCO2 (35-45) mm/Hg pO2 (80-100) mm/Hg HCO3 (21-28) mmol/L ABG pH (7.35-7.45) ABG Total CO2 (22-28) mmol/L ABG O2 Saturation (95-98) % ABG Base Excess (-2.0-3.0) mmol/L ABG Hemoglobin (11.7-17.4) g/dL ABG Carboxyhemoglobin (0.5-1.5) % POC ABG HHb (Measured) (0.0-5.0) % ABG Methemoglobin (0.0-3.0) % Nico Test A-a O2 Difference mm/Hg Respiratory Index Hgb O2 Saturation (95.0-98.0) % Mechanical Rate FiO2 % Tidal Volume PEEP Sodium (132-148) mmol/L Potassium (3.6-5.2) mmol/L Chloride (98-107) mmol/L Carbon Dioxide (22-30) mmol/L Anion Gap (10-20) BUN (7-17) mg/dL Creatinine (0.7-1.2) MG/DL Est GFR ( Amer) Est GFR (Non-Af Amer) POC Glucose (mg/dL) 247 H 284 H (65-110) mg/dL Random Glucose (65-105) mg/dL Serum Osmolality 327 H (272-300) mosm/kg Calcium (8.6-10.4) mg/dl Phosphorus (2.5-4.5) mg/dL Magnesium (1.6-2.3) mg/dL Total Bilirubin (0.2-1.3) mg/dL AST (14-36) U/L ALT (9-52) U/L Alkaline Phosphatase (38-126) U/L Total Protein (6.3-8.3) g/dL Albumin (3.5-5.0) g/dL Globulin (2.2-3.9) gm/dL Albumin/Globulin Ratio (1.0-2.1) CSF West Nile IgG Ab CSF West Nile IgM Ab 10/12/16 10/12/16 10/12/16 Range/Units 06:53 06:31 06:31 WBC 19.1 H (4.8-10.8) K/uL RBC 4.09 (3.80-5.20) Mil/uL Hgb 11.8 (11.0-16.0) g/dL Hct 36.7 (34.0-47.0) % MCV 89.7 (81.0-99.0) fL MCH 28.8 (27.0-31.0) pg MCHC 32.1 L (33.0-37.0) g/dL RDW 14.1 (11.5-14.5) % Plt Count 284 (130-400) K/uL MPV 8.4 (7.2-11.7) fL Neut % (Auto) 89.8 H (50.0-75.0) % Lymph % (Auto) 7.1 L (20.0-40.0) % Hemphill % (Auto) 2.8 (0.0-10.0) % Eos % (Auto) 0.0 (0.0-4.0) % Baso % (Auto) 0.3 (0.0-2.0) % Neut # 17.2 H (1.8-7.0) K/uL Lymph # 1.4 (1.0-4.3) K/uL Hemphill # 0.5 (0.0-0.8) K/uL Eos # 0.0 (0.0-0.7) K/uL Baso # 0.1 (0.0-0.2) K/uL Neutrophils % (Manual) 86 H (50-75) % Band Neutrophils % 2 (0-2) % Lymphocytes % (Manual) 9 L (20-40) % Monocytes % (Manual) 2 (0-10) % Metamyelocytes % 1 H (0-0) % Toxic Granulation Present Platelet Estimate Normal (NORMAL) Large Platelets Present Anisocytosis (manual) Slight Puncture Site pCO2 (35-45) mm/Hg pO2 (80-100) mm/Hg HCO3 (21-28) mmol/L ABG pH (7.35-7.45) ABG Total CO2 (22-28) mmol/L ABG O2 Saturation (95-98) % ABG Base Excess (-2.0-3.0) mmol/L ABG Hemoglobin (11.7-17.4) g/dL ABG Carboxyhemoglobin (0.5-1.5) % POC ABG HHb (Measured) (0.0-5.0) % ABG Methemoglobin (0.0-3.0) % Nico Test A-a O2 Difference mm/Hg Respiratory Index Hgb O2 Saturation (95.0-98.0) % Mechanical Rate FiO2 % Tidal Volume PEEP Sodium 149 H (132-148) mmol/L Potassium 3.7 (3.6-5.2) mmol/L Chloride 121 H (98-107) mmol/L Carbon Dioxide 16 L (22-30) mmol/L Anion Gap 16 (10-20) BUN 28 H (7-17) mg/dL Creatinine 0.6 L (0.7-1.2) MG/DL Est GFR ( Amer) > 60 Est GFR (Non-Af Amer) > 60 POC Glucose (mg/dL) 267 H (65-110) mg/dL Random Glucose 278 H (65-105) mg/dL Serum Osmolality (272-300) mosm/kg Calcium 9.5 (8.6-10.4) mg/dl Phosphorus 1.6 L (2.5-4.5) mg/dL Magnesium 2.4 H (1.6-2.3) mg/dL Total Bilirubin 0.6 (0.2-1.3) mg/dL AST 32 (14-36) U/L ALT 25 (9-52) U/L Alkaline Phosphatase 83 (38-126) U/L Total Protein 6.6 (6.3-8.3) g/dL Albumin 2.9 L (3.5-5.0) g/dL Globulin 3.7 (2.2-3.9) gm/dL Albumin/Globulin Ratio 0.8 L (1.0-2.1) CSF West Nile IgG Ab CSF West Nile IgM Ab 10/12/16 10/12/16 10/12/16 Range/Units 05:59 04:55 04:20 WBC (4.8-10.8) K/uL RBC (3.80-5.20) Mil/uL Hgb (11.0-16.0) g/dL Hct (34.0-47.0) % MCV (81.0-99.0) fL MCH (27.0-31.0) pg MCHC (33.0-37.0) g/dL RDW (11.5-14.5) % Plt Count (130-400) K/uL MPV (7.2-11.7) fL Neut % (Auto) (50.0-75.0) % Lymph % (Auto) (20.0-40.0) % Hemphill % (Auto) (0.0-10.0) % Eos % (Auto) (0.0-4.0) % Baso % (Auto) (0.0-2.0) % Neut # (1.8-7.0) K/uL Lymph # (1.0-4.3) K/uL Hemphill # (0.0-0.8) K/uL Eos # (0.0-0.7) K/uL Baso # (0.0-0.2) K/uL Neutrophils % (Manual) (50-75) % Band Neutrophils % (0-2) % Lymphocytes % (Manual) (20-40) % Monocytes % (Manual) (0-10) % Metamyelocytes % (0-0) % Toxic Granulation Platelet Estimate (NORMAL) Large Platelets Anisocytosis (manual) Puncture Site Rr pCO2 27 L (35-45) mm/Hg pO2 98 (80-100) mm/Hg HCO3 18.3 L (21-28) mmol/L ABG pH 7.36 (7.35-7.45) ABG Total CO2 16.1 L (22-28) mmol/L ABG O2 Saturation 98.9 H (95-98) % ABG Base Excess -8.5 L (-2.0-3.0) mmol/L ABG Hemoglobin 14.1 (11.7-17.4) g/dL ABG Carboxyhemoglobin 1.3 (0.5-1.5) % POC ABG HHb (Measured) 1.1 (0.0-5.0) % ABG Methemoglobin 0.8 (0.0-3.0) % Nico Test Pos A-a O2 Difference 153.0 mm/Hg Respiratory Index 1.6 Hgb O2 Saturation 96.7 (95.0-98.0) % Mechanical Rate 18 FiO2 40.0 % Tidal Volume 500 PEEP 10 Sodium (132-148) mmol/L Potassium (3.6-5.2) mmol/L Chloride (98-107) mmol/L Carbon Dioxide (22-30) mmol/L Anion Gap (10-20) BUN (7-17) mg/dL Creatinine (0.7-1.2) MG/DL Est GFR ( Amer) Est GFR (Non-Af Amer) POC Glucose (mg/dL) 273 H 287 H (65-110) mg/dL Random Glucose (65-105) mg/dL Serum Osmolality (272-300) mosm/kg Calcium (8.6-10.4) mg/dl Phosphorus (2.5-4.5) mg/dL Magnesium (1.6-2.3) mg/dL Total Bilirubin (0.2-1.3) mg/dL AST (14-36) U/L ALT (9-52) U/L Alkaline Phosphatase (38-126) U/L Total Protein (6.3-8.3) g/dL Albumin (3.5-5.0) g/dL Globulin (2.2-3.9) gm/dL Albumin/Globulin Ratio (1.0-2.1) CSF West Nile IgG Ab CSF West Nile IgM Ab 10/12/16 10/12/16 10/12/16 Range/Units 04:15 02:51 02:17 WBC (4.8-10.8) K/uL RBC (3.80-5.20) Mil/uL Hgb (11.0-16.0) g/dL Hct (34.0-47.0) % MCV (81.0-99.0) fL MCH (27.0-31.0) pg MCHC (33.0-37.0) g/dL RDW (11.5-14.5) % Plt Count (130-400) K/uL MPV (7.2-11.7) fL Neut % (Auto) (50.0-75.0) % Lymph % (Auto) (20.0-40.0) % Hemphill % (Auto) (0.0-10.0) % Eos % (Auto) (0.0-4.0) % Baso % (Auto) (0.0-2.0) % Neut # (1.8-7.0) K/uL Lymph # (1.0-4.3) K/uL Hemphill # (0.0-0.8) K/uL Eos # (0.0-0.7) K/uL Baso # (0.0-0.2) K/uL Neutrophils % (Manual) (50-75) % Band Neutrophils % (0-2) % Lymphocytes % (Manual) (20-40) % Monocytes % (Manual) (0-10) % Metamyelocytes % (0-0) % Toxic Granulation Platelet Estimate (NORMAL) Large Platelets Anisocytosis (manual) Puncture Site pCO2 (35-45) mm/Hg pO2 (80-100) mm/Hg HCO3 (21-28) mmol/L ABG pH (7.35-7.45) ABG Total CO2 (22-28) mmol/L ABG O2 Saturation (95-98) % ABG Base Excess (-2.0-3.0) mmol/L ABG Hemoglobin (11.7-17.4) g/dL ABG Carboxyhemoglobin (0.5-1.5) % POC ABG HHb (Measured) (0.0-5.0) % ABG Methemoglobin (0.0-3.0) % Nico Test A-a O2 Difference mm/Hg Respiratory Index Hgb O2 Saturation (95.0-98.0) % Mechanical Rate FiO2 % Tidal Volume PEEP Sodium (132-148) mmol/L Potassium (3.6-5.2) mmol/L Chloride (98-107) mmol/L Carbon Dioxide (22-30) mmol/L Anion Gap (10-20) BUN (7-17) mg/dL Creatinine (0.7-1.2) MG/DL Est GFR ( Amer) Est GFR (Non-Af Amer) POC Glucose (mg/dL) 296 H 290 H 292 H (65-110) mg/dL Random Glucose (65-105) mg/dL Serum Osmolality (272-300) mosm/kg Calcium (8.6-10.4) mg/dl Phosphorus (2.5-4.5) mg/dL Magnesium (1.6-2.3) mg/dL Total Bilirubin (0.2-1.3) mg/dL AST (14-36) U/L ALT (9-52) U/L Alkaline Phosphatase (38-126) U/L Total Protein (6.3-8.3) g/dL Albumin (3.5-5.0) g/dL Globulin (2.2-3.9) gm/dL Albumin/Globulin Ratio (1.0-2.1) CSF West Nile IgG Ab CSF West Nile IgM Ab 10/12/16 10/12/16 10/11/16 Range/Units 01:20 00:31 22:02 WBC (4.8-10.8) K/uL RBC (3.80-5.20) Mil/uL Hgb (11.0-16.0) g/dL Hct (34.0-47.0) % MCV (81.0-99.0) fL MCH (27.0-31.0) pg MCHC (33.0-37.0) g/dL RDW (11.5-14.5) % Plt Count (130-400) K/uL MPV (7.2-11.7) fL Neut % (Auto) (50.0-75.0) % Lymph % (Auto) (20.0-40.0) % Hemphill % (Auto) (0.0-10.0) % Eos % (Auto) (0.0-4.0) % Baso % (Auto) (0.0-2.0) % Neut # (1.8-7.0) K/uL Lymph # (1.0-4.3) K/uL Hemphill # (0.0-0.8) K/uL Eos # (0.0-0.7) K/uL Baso # (0.0-0.2) K/uL Neutrophils % (Manual) (50-75) % Band Neutrophils % (0-2) % Lymphocytes % (Manual) (20-40) % Monocytes % (Manual) (0-10) % Metamyelocytes % (0-0) % Toxic Granulation Platelet Estimate (NORMAL) Large Platelets Anisocytosis (manual) Puncture Site pCO2 (35-45) mm/Hg pO2 (80-100) mm/Hg HCO3 (21-28) mmol/L ABG pH (7.35-7.45) ABG Total CO2 (22-28) mmol/L ABG O2 Saturation (95-98) % ABG Base Excess (-2.0-3.0) mmol/L ABG Hemoglobin (11.7-17.4) g/dL ABG Carboxyhemoglobin (0.5-1.5) % POC ABG HHb (Measured) (0.0-5.0) % ABG Methemoglobin (0.0-3.0) % Nico Test A-a O2 Difference mm/Hg Respiratory Index Hgb O2 Saturation (95.0-98.0) % Mechanical Rate FiO2 % Tidal Volume PEEP Sodium (132-148) mmol/L Potassium (3.6-5.2) mmol/L Chloride (98-107) mmol/L Carbon Dioxide (22-30) mmol/L Anion Gap (10-20) BUN (7-17) mg/dL Creatinine (0.7-1.2) MG/DL Est GFR ( Amer) Est GFR (Non-Af Amer) POC Glucose (mg/dL) 310 H 276 H 280 H (65-110) mg/dL Random Glucose (65-105) mg/dL Serum Osmolality (272-300) mosm/kg Calcium (8.6-10.4) mg/dl Phosphorus (2.5-4.5) mg/dL Magnesium (1.6-2.3) mg/dL Total Bilirubin (0.2-1.3) mg/dL AST (14-36) U/L ALT (9-52) U/L Alkaline Phosphatase (38-126) U/L Total Protein (6.3-8.3) g/dL Albumin (3.5-5.0) g/dL Globulin (2.2-3.9) gm/dL Albumin/Globulin Ratio (1.0-2.1) CSF West Nile IgG Ab CSF West Nile IgM Ab 10/11/16 10/11/16 10/11/16 Range/Units 20:56 20:27 18:14 WBC (4.8-10.8) K/uL RBC (3.80-5.20) Mil/uL Hgb (11.0-16.0) g/dL Hct (34.0-47.0) % MCV (81.0-99.0) fL MCH (27.0-31.0) pg MCHC (33.0-37.0) g/dL RDW (11.5-14.5) % Plt Count (130-400) K/uL MPV (7.2-11.7) fL Neut % (Auto) (50.0-75.0) % Lymph % (Auto) (20.0-40.0) % Hemphill % (Auto) (0.0-10.0) % Eos % (Auto) (0.0-4.0) % Baso % (Auto) (0.0-2.0) % Neut # (1.8-7.0) K/uL Lymph # (1.0-4.3) K/uL Hemphill # (0.0-0.8) K/uL Eos # (0.0-0.7) K/uL Baso # (0.0-0.2) K/uL Neutrophils % (Manual) (50-75) % Band Neutrophils % (0-2) % Lymphocytes % (Manual) (20-40) % Monocytes % (Manual) (0-10) % Metamyelocytes % (0-0) % Toxic Granulation Platelet Estimate (NORMAL) Large Platelets Anisocytosis (manual) Puncture Site pCO2 (35-45) mm/Hg pO2 (80-100) mm/Hg HCO3 (21-28) mmol/L ABG pH (7.35-7.45) ABG Total CO2 (22-28) mmol/L ABG O2 Saturation (95-98) % ABG Base Excess (-2.0-3.0) mmol/L ABG Hemoglobin (11.7-17.4) g/dL ABG Carboxyhemoglobin (0.5-1.5) % POC ABG HHb (Measured) (0.0-5.0) % ABG Methemoglobin (0.0-3.0) % Nico Test A-a O2 Difference mm/Hg Respiratory Index Hgb O2 Saturation (95.0-98.0) % Mechanical Rate FiO2 % Tidal Volume PEEP Sodium (132-148) mmol/L Potassium (3.6-5.2) mmol/L Chloride (98-107) mmol/L Carbon Dioxide (22-30) mmol/L Anion Gap (10-20) BUN (7-17) mg/dL Creatinine (0.7-1.2) MG/DL Est GFR ( Amer) Est GFR (Non-Af Amer) POC Glucose (mg/dL) 288 H 235 H 298 H (65-110) mg/dL Random Glucose (65-105) mg/dL Serum Osmolality (272-300) mosm/kg Calcium (8.6-10.4) mg/dl Phosphorus (2.5-4.5) mg/dL Magnesium (1.6-2.3) mg/dL Total Bilirubin (0.2-1.3) mg/dL AST (14-36) U/L ALT (9-52) U/L Alkaline Phosphatase (38-126) U/L Total Protein (6.3-8.3) g/dL Albumin (3.5-5.0) g/dL Globulin (2.2-3.9) gm/dL Albumin/Globulin Ratio (1.0-2.1) CSF West Nile IgG Ab CSF West Nile IgM Ab 10/11/16 10/11/16 10/11/16 Range/Units 17:06 16:01 14:54 WBC (4.8-10.8) K/uL RBC (3.80-5.20) Mil/uL Hgb (11.0-16.0) g/dL Hct (34.0-47.0) % MCV (81.0-99.0) fL MCH (27.0-31.0) pg MCHC (33.0-37.0) g/dL RDW (11.5-14.5) % Plt Count (130-400) K/uL MPV (7.2-11.7) fL Neut % (Auto) (50.0-75.0) % Lymph % (Auto) (20.0-40.0) % Hemph[place] % (Auto) (0.0-10.0) % Eos % (Auto) (0.0-4.0) % Baso % (Auto) (0.0-2.0) % Neut # (1.8-7.0) K/uL Lymph # (1.0-4.3) K/uL [place] # (0.0-0.8) K/uL Eos # (0.0-0.7) K/uL Baso # (0.0-0.2) K/uL Neutrophils % (Manual) (50-75) % Band Neutrophils % (0-2) % Lymphocytes % (Manual) (20-40) % Monocytes % (Manual) (0-10) % Metamyelocytes % (0-0) % Toxic Granulation Platelet Estimate (NORMAL) Large Platelets Anisocytosis (manual) Puncture Site pCO2 (35-45) mm/Hg pO2 (80-100) mm/Hg HCO3 (21-28) mmol/L ABG pH (7.35-7.45) ABG Total CO2 (22-28) mmol/L ABG O2 Saturation (95-98) % ABG Base Excess (-2.0-3.0) mmol/L ABG Hemoglobin (11.7-17.4) g/dL ABG Carboxyhemoglobin (0.5-1.5) % POC ABG HHb (Measured) (0.0-5.0) % ABG Methemoglobin (0.0-3.0) % Nico Test A-a O2 Difference mm/Hg Respiratory Index Hgb O2 Saturation (95.0-98.0) % Mechanical Rate FiO2 % Tidal Volume PEEP Sodium (132-148) mmol/L Potassium (3.6-5.2) mmol/L Chloride (98-107) mmol/L Carbon Dioxide (22-30) mmol/L Anion Gap (10-20) BUN (7-17) mg/dL Creatinine (0.7-1.2) MG/DL Est GFR ( Amer) Est GFR (Non-Af Amer) POC Glucose (mg/dL) 306 H 279 H 302 H (65-110) mg/dL Random Glucose (65-105) mg/dL Serum Osmolality (272-300) mosm/kg Calcium (8.6-10.4) mg/dl Phosphorus (2.5-4.5) mg/dL Magnesium (1.6-2.3) mg/dL Total Bilirubin (0.2-1.3) mg/dL AST (14-36) U/L ALT (9-52) U/L Alkaline Phosphatase (38-126) U/L Total Protein (6.3-8.3) g/dL Albumin (3.5-5.0) g/dL Globulin (2.2-3.9) gm/dL Albumin/Globulin Ratio (1.0-2.1) CSF West [place] IgG Ab CSF West [place] IgM Ab 10/11/16 10/10/16 Range/Units 12:25 12:41 WBC (4.8-10.8) K/uL RBC (3.80-5.20) Mil/uL Hgb (11.0-16.0) g/dL Hct (34.0-47.0) % MCV (81.0-99.0) fL MCH (27.0-31.0) pg MCHC (33.0-37.0) g/dL RDW (11.5-14.5) % Plt Count (130-400) K/uL MPV (7.2-11.7) fL Neut % (Auto) (50.0-75.0) % Lymph % (Auto) (20.0-40.0) % [place] % (Auto) (0.0-10.0) % Eos % (Auto) (0.0-4.0) % Baso % (Auto) (0.0-2.0) % Neut # (1.8-7.0) K/uL Lymph # (1.0-4.3) K/uL [place] # (0.0-0.8) K/uL Eos # (0.0-0.7) K/uL Baso # (0.0-0.2) K/uL Neutrophils % (Manual) (50-75) % Band Neutrophils % (0-2) % Lymphocytes % (Manual) (20-40) % Monocytes % (Manual) (0-10) % Metamyelocytes % (0-0) % Toxic Granulation Platelet Estimate (NORMAL) Large Platelets Anisocytosis (manual) Puncture Site pCO2 (35-45) mm/Hg pO2 (80-100) mm/Hg HCO3 (21-28) mmol/L ABG pH (7.35-7.45) ABG Total CO2 (22-28) mmol/L ABG O2 Saturation (95-98) % ABG Base Excess (-2.0-3.0) mmol/L ABG Hemoglobin (11.7-17.4) g/dL ABG Carboxyhemoglobin (0.5-1.5) % POC ABG HHb (Measured) (0.0-5.0) % ABG Methemoglobin (0.0-3.0) % Nico Test A-a O2 Difference mm/Hg Respiratory Index Hgb O2 Saturation (95.0-98.0) % Mechanical Rate FiO2 % Tidal Volume PEEP Sodium (132-148) mmol/L Potassium (3.6-5.2) mmol/L Chloride (98-107) mmol/L Carbon Dioxide (22-30) mmol/L Anion Gap (10-20) BUN (7-17) mg/dL Creatinine (0.7-1.2) MG/DL Est GFR ( Amer) Est GFR (Non-Af Amer) POC Glucose (mg/dL) 357 H (65-110) mg/dL Random Glucose (65-105) mg/dL Serum Osmolality (272-300) mosm/kg Calcium (8.6-10.4) mg/dl Phosphorus (2.5-4.5) mg/dL Magnesium (1.6-2.3) mg/dL Total Bilirubin (0.2-1.3) mg/dL AST (14-36) U/L ALT (9-52) U/L Alkaline Phosphatase (38-126) U/L Total Protein (6.3-8.3) g/dL Albumin (3.5-5.0) g/dL Globulin (2.2-3.9) gm/dL Albumin/Globulin Ratio (1.0-2.1) CSF [place] IgG Ab 3.64 H CSF [place] IgM Ab 0.22 Laboratory Results - last 24 hr 10/10/16 10/11/16 10/11/16 12:41 12:25 14:54 WBC RBC Hgb Hct MCV MCH MCHC RDW Plt Count MPV Neut % (Auto) Lymph % (Auto) [place] % (Auto) Eos % (Auto) Baso % (Auto) Neut # Lymph # [place] # Eos # Baso # Neutrophils % (Manual) Band Neutrophils % Lymphocytes % (Manual) Monocytes % (Manual) Metamyelocytes % Toxic Granulation Platelet Estimate Large Platelets Anisocytosis (manual) Puncture Site pCO2 pO2 HCO3 ABG pH ABG Total CO2 ABG O2 Saturation ABG Base Excess ABG Hemoglobin ABG Carboxyhemoglobin POC ABG HHb (Measured) ABG Methemoglobin Nico Test A-a O2 Difference Respiratory Index Hgb O2 Saturation Mechanical Rate FiO2 Tidal Volume PEEP Sodium Potassium Chloride Carbon Dioxide Anion Gap BUN Creatinine Est GFR ( Amer) Est GFR (Non-Af Amer) POC Glucose (mg/dL) 357 H 302 H Random Glucose Serum Osmolality Calcium Phosphorus Magnesium Total Bilirubin AST ALT Alkaline Phosphatase Total Protein Albumin Globulin Albumin/Globulin Ratio CSF [place] IgG Ab 3.64 H CSF [place] IgM Ab 0.22 10/11/16 10/11/16 10/11/16 16:01 17:06 18:14 WBC RBC Hgb Hct MCV MCH MCHC RDW Plt Count MPV Neut % (Auto) Lymph % (Auto) [place] % (Auto) Eos % (Auto) Baso % (Auto) Neut # Lymph # [place] # Eos # Baso # Neutrophils % (Manual) Band Neutrophils % Lymphocytes % (Manual) Monocytes % (Manual) Metamyelocytes % Toxic Granulation Platelet Estimate Large Platelets Anisocytosis (manual) Puncture Site pCO2 pO2 HCO3 ABG pH ABG Total CO2 ABG O2 Saturation ABG Base Excess ABG Hemoglobin ABG Carboxyhemoglobin POC ABG HHb (Measured) ABG Methemoglobin Nico Test A-a O2 Difference Respiratory Index Hgb O2 Saturation Mechanical Rate FiO2 Tidal Volume PEEP Sodium Potassium Chloride Carbon Dioxide Anion Gap BUN Creatinine Est GFR ( Amer) Est GFR (Non-Af Amer) POC Glucose (mg/dL) 279 H 306 H 298 H Random Glucose Serum Osmolality Calcium Phosphorus Magnesium Total Bilirubin AST ALT Alkaline Phosphatase Total Protein Albumin Globulin Albumin/Globulin Ratio CSF [place] IgG Ab CSF [place] IgM Ab 10/11/16 10/11/16 10/11/16 20:27 20:56 22:02 WBC RBC Hgb Hct MCV MCH MCHC RDW Plt Count MPV Neut % (Auto) Lymph % (Auto) [place] % (Auto) Eos % (Auto) Baso % (Auto) Neut # Lymph # [place] # Eos # Baso # Neutrophils % (Manual) Band Neutrophils % Lymphocytes % (Manual) Monocytes % (Manual) Metamyelocytes % Toxic Granulation Platelet Estimate Large Platelets Anisocytosis (manual) Puncture Site pCO2 pO2 HCO3 ABG pH ABG Total CO2 ABG O2 Saturation ABG Base Excess ABG Hemoglobin ABG Carboxyhemoglobin POC ABG HHb (Measured) ABG Methemoglobin Nico Test A-a O2 Difference Respiratory Index Hgb O2 Saturation Mechanical Rate FiO2 Tidal Volume PEEP Sodium Potassium Chloride Carbon Dioxide Anion Gap BUN Creatinine Est GFR ( Amer) Est GFR (Non-Af Amer) POC Glucose (mg/dL) 235 H 288 H 280 H Random Glucose Serum Osmolality Calcium Phosphorus Magnesium Total Bilirubin AST ALT Alkaline Phosphatase Total Protein Albumin Globulin Albumin/Globulin Ratio CSF [place] IgG Ab CSF [place] IgM Ab 10/12/16 10/12/16 10/12/16 00:31 01:20 02:17 WBC RBC Hgb Hct MCV MCH MCHC RDW Plt Count MPV Neut % (Auto) Lymph % (Auto) [place] % (Auto) Eos % (Auto) Baso % (Auto) Neut # Lymph # [place] # Eos # Baso # Neutrophils % (Manual) Band Neutrophils % Lymphocytes % (Manual) Monocytes % (Manual) Metamyelocytes % Toxic Granulation Platelet Estimate Large Platelets Anisocytosis (manual) Puncture Site pCO2 pO2 HCO3 ABG pH ABG Total CO2 ABG O2 Saturation ABG Base Excess ABG Hemoglobin ABG Carboxyhemoglobin POC ABG HHb (Measured) ABG Methemoglobin Nico Test A-a O2 Difference Respiratory Index Hgb O2 Saturation Mechanical Rate FiO2 Tidal Volume PEEP Sodium Potassium Chloride Carbon Dioxide Anion Gap BUN Creatinine Est GFR ( Amer) Est GFR (Non-Af Amer) POC Glucose (mg/dL) 276 H 310 H 292 H Random Glucose Serum Osmolality Calcium Phosphorus Magnesium Total Bilirubin AST ALT Alkaline Phosphatase Total Protein Albumin Globulin Albumin/Globulin Ratio CSF [place] IgG Ab CSF [place] IgM Ab 10/12/16 10/12/16 10/12/16 02:51 04:15 04:20 WBC RBC Hgb Hct MCV MCH MCHC RDW Plt Count MPV Neut % (Auto) Lymph % (Auto) [place] % (Auto) Eos % (Auto) Baso % (Auto) Neut # Lymph # [place] # Eos # Baso # Neutrophils % (Manual) Band Neutrophils % Lymphocytes % (Manual) Monocytes % (Manual) Metamyelocytes % Toxic Granulation Platelet Estimate Large Platelets Anisocytosis (manual) Puncture Site Rr pCO2 27 L pO2 98 HCO3 18.3 L ABG pH 7.36 ABG Total CO2 16.1 L ABG O2 Saturation 98.9 H ABG Base Excess -8.5 L ABG Hemoglobin 14.1 ABG Carboxyhemoglobin 1.3 POC ABG HHb (Measured) 1.1 ABG Methemoglobin 0.8 Nico Test Pos A-a O2 Difference 153.0 Respiratory Index 1.6 Hgb O2 Saturation 96.7 Mechanical Rate 18 FiO2 40.0 Tidal Volume 500 PEEP 10 Sodium Potassium Chloride Carbon Dioxide Anion Gap BUN Creatinine Est GFR ( Amer) Est GFR (Non-Af Amer) POC Glucose (mg/dL) 290 H 296 H Random Glucose Serum Osmolality Calcium Phosphorus Magnesium Total Bilirubin AST ALT Alkaline Phosphatase Total Protein Albumin Globulin Albumin/Globulin Ratio CSF [place] IgG Ab CSF [place] IgM Ab 10/12/16 10/12/16 10/12/16 04:55 05:59 06:31 WBC 19.1 H RBC 4.09 Hgb 11.8 Hct 36.7 MCV 89.7 MCH 28.8 MCHC 32.1 L RDW 14.1 Plt Count 284 MPV 8.4 Neut % (Auto) 89.8 H Lymph % (Auto) 7.1 L [place] % (Auto) 2.8 Eos % (Auto) 0.0 Baso % (Auto) 0.3 Neut # 17.2 H Lymph # 1.4 [place]ill # 0.5 Eos # 0.0 Baso # 0.1 Neutrophils % (Manual) 86 H Band Neutrophils % 2 Lymphocytes % (Manual) 9 L Monocytes % (Manual) 2 Metamyelocytes % 1 H Toxic Granulation Present Platelet Estimate Normal Large Platelets Present Anisocytosis (manual) Slight Puncture Site pCO2 pO2 HCO3 ABG pH ABG Total CO2 ABG O2 Saturation ABG Base Excess ABG Hemoglobin ABG Carboxyhemoglobin POC ABG HHb (Measured) ABG Methemoglobin Nico Test A-a O2 Difference Respiratory Index Hgb O2 Saturation Mechanical Rate FiO2 Tidal Volume PEEP Sodium Potassium Chloride Carbon Dioxide Anion Gap BUN Creatinine Est GFR ( Amer) Est GFR (Non-Af Amer) POC Glucose (mg/dL) 287 H 273 H Random Glucose Serum Osmolality Calcium Phosphorus Magnesium Total Bilirubin AST ALT Alkaline Phosphatase Total Protein Albumin Globulin Albumin/Globulin Ratio CSF [place] IgG Ab CSF [place] IgM Ab 10/12/16 10/12/16 10/12/16 06:31 06:53 07:40 WBC RBC Hgb Hct MCV MCH MCHC RDW Plt Count MPV Neut % (Auto) Lymph % (Auto) [place] % (Auto) Eos % (Auto) Baso % (Auto) Neut # Lymph # [place] # Eos # Baso # Neutrophils % (Manual) Band Neutrophils % Lymphocytes % (Manual) Monocytes % (Manual) Metamyelocytes % Toxic Granulation Platelet Estimate Large Platelets Anisocytosis (manual) Puncture Site pCO2 pO2 HCO3 ABG pH ABG Total CO2 ABG O2 Saturation ABG Base Excess ABG Hemoglobin ABG Carboxyhemoglobin POC ABG HHb (Measured) ABG Methemoglobin Nico Test A-a O2 Difference Respiratory Index Hgb O2 Saturation Mechanical Rate FiO2 Tidal Volume PEEP Sodium 149 H Potassium 3.7 Chloride 121 H Carbon Dioxide 16 L Anion Gap 16 BUN 28 H Creatinine 0.6 L Est GFR ( Amer) > 60 Est GFR (Non-Af Amer) > 60 POC Glucose (mg/dL) 267 H 284 H Random Glucose 278 H Serum Osmolality Calcium 9.5 Phosphorus 1.6 L Magnesium 2.4 H Total Bilirubin 0.6 AST 32 ALT 25 Alkaline Phosphatase 83 Total Protein 6.6 Albumin 2.9 L Globulin 3.7 Albumin/Globulin Ratio 0.8 L CSF [place] IgG Ab CSF [place] IgM Ab 10/12/16 10/12/16 10/12/16 08:04 08:39 09:06 WBC RBC Hgb Hct MCV MCH MCHC RDW Plt Count MPV Neut % (Auto) Lymph % (Auto) [place] % (Auto) Eos % (Auto) Baso % (Auto) Neut # Lymph # [place] # Eos # Baso # Neutrophils % (Manual) Band Neutrophils % Lymphocytes % (Manual) Monocytes % (Manual) Metamyelocytes % Toxic Granulation Platelet Estimate Large Platelets Anisocytosis (manual) Puncture Site pCO2 pO2 HCO3 ABG pH ABG Total CO2 ABG O2 Saturation ABG Base Excess ABG Hemoglobin ABG Carboxyhemoglobin POC ABG HHb (Measured) ABG Methemoglobin Nico Test A-a O2 Difference Respiratory Index Hgb O2 Saturation Mechanical Rate FiO2 Tidal Volume PEEP Sodium Potassium Chloride Carbon Dioxide Anion Gap BUN Creatinine Est GFR ( Amer) Est GFR (Non-Af Amer) POC Glucose (mg/dL) 247 H 274 H Random Glucose Serum Osmolality 327 H Calcium Phosphorus Magnesium Total Bilirubin AST ALT Alkaline Phosphatase Total Protein Albumin Globulin Albumin/Globulin Ratio CSF [place] IgG Ab CSF [place] IgM Ab 10/12/16 10/12/16 10:05 10:11 WBC RBC Hgb Hct MCV MCH MCHC RDW Plt Count MPV Neut % (Auto) Lymph % (Auto) [place] % (Auto) Eos % (Auto) Baso % (Auto) Neut # Lymph # [place] # Eos # Baso # Neutrophils % (Manual) Band Neutrophils % Lymphocytes % (Manual) Monocytes % (Manual) Metamyelocytes % Toxic Granulation Platelet Estimate Large Platelets Anisocytosis (manual) Puncture Site pCO2 pO2 HCO3 ABG pH ABG Total CO2 ABG O2 Saturation ABG Base Excess ABG Hemoglobin ABG Carboxyhemoglobin POC ABG HHb (Measured) ABG Methemoglobin Nico Test A-a O2 Difference Respiratory Index Hgb O2 Saturation Mechanical Rate FiO2 Tidal Volume PEEP Sodium Potassium Chloride Carbon Dioxide Anion Gap BUN Creatinine Est GFR ( Amer) Est GFR (Non-Af Amer) POC Glucose (mg/dL) 268 H 309 H Random Glucose Serum Osmolality Calcium Phosphorus Magnesium Total Bilirubin AST ALT Alkaline Phosphatase Total Protein Albumin Globulin Albumin/Globulin Ratio CSF [place] IgG Ab CSF [place] IgM Ab Fingerstick Blood Sugar Results: 357 Review of Systems - Review of Systems Systems not reviewed;Unavailable: Acuity of Condition
[2016-10-12] MEDS: Vancomycin 1 gm/NS 200 ml 1 GM/200 ML BAG IVPB SCH ×2 (11:00→21:54)
--- NOTE | 2016-10-12 12:19 | RAD ---
HISTORY: Central line placement. COMPARISON: October 11, 2016. 07:00. FINDINGS: LUNGS: Large right lower lobe alveolar infiltrates suspicious for pneumonia. PLEURA: No significant pleural effusion identified, no pneumothorax apparent. CARDIOVASCULAR: Cardiomegaly. No evidence of acute, significant cardiovascular disease. Venous access catheter in satisfactory position. No pneumothorax following right IJ catheter placement. OSSEOUS STRUCTURES: No significant abnormalities. VISUALIZED UPPER ABDOMEN: Normal. OTHER FINDINGS: Stable position of endotracheal tube and nasogastric tube. IMPRESSION: No adverse findings following central line placement. New/ acute right lower lobe infiltrate.
--- NOTE | 2016-10-12 13:09 | RAD ---
PROCEDURE: CHEST RADIOGRAPH, 1 VIEW. Portable study 07:19. HISTORY: Intubated COMPARISON: Multiple serial examinations preceding the most recent study: Macro yesterday's 19:00. FINDINGS: LUNGS: Improved dictation of the lungs particularly right lower lobe. PLEURA: No pneumothorax or pleural fluid seen. CARDIOVASCULAR: No significant interval change compared to the prior examination(s). OSSEOUS STRUCTURES: No significant abnormalities. VISUALIZED UPPER ABDOMEN: Normal. OTHER FINDINGS: Stable, satisfactory position ventilatory, vascular and nasogastric apparatus. IMPRESSION: Improving right lower lobe infiltrate. Otherwise stable examination.
[2016-10-12 15:11] LABS: HSV 2 DNA Not Detected (Not Detected); SPECIMEN SOURCE CSF
--- NOTE | 2016-10-12 15:30 | CP.PCM.PN ---
Subjective - Date & Time of Evaluation Date of Evaluation: 10/12/16 Time of Evaluation: 10:00 - Subjective Subjective: PGY1 Medicine note for Dr. Goldstein Objective - Vital Signs/Intake and Output Vital Signs (last 24 hours): Temp Pulse Resp BP Pulse Ox 99.7 F H 78 21 129/60 96 10/12/16 15:00 10/12/16 15:00 10/12/16 15:00 10/12/16 15:00 10/12/16 15:00 Intake and Output: 10/12/16 10/12/16 06:59 18:59 Intake Total 1604.1 1774.1 Output Total 2888 813 Balance -1283.9 961.1 - Medications Medications: Current Medications Acetaminophen (Tylenol 650mg/20.3ml Solution Ud) 650 mg NG Q6 PRN PRN Reason: FOR TEMP 101*F OR ABOVE Last Admin: 10/11/16 02:09 Dose: 650 mg Artificial Tears (Lacri-Lube) 1 gm OU BID [facility] Last Admin: 10/12/16 09:16 Dose: 1 gm Dexamethasone (Decadron Inj) 10 mg IVP Q8 [facility] Stop: 10/13/16 19:13 Last Admin: 10/12/16 14:03 Dose: 10 mg Enoxaparin Sodium (Lovenox) 40 mg SC DAILY [facility] Last Admin: 10/12/16 09:15 Dose: 40 mg Vancomycin/Sodium Chloride (Vancocin) 1 gm in 200 mls @ 133.333 mls/hr IVPB Q12H [facility] Stop: 10/14/16 10:31 Last Admin: 10/12/16 11:00 Dose: 133.333 mls/hr Sodium Chloride (Sodium Chloride 0.9%) 1,000 mls @ 75 mls/hr IV .[id number] [facility] Last Admin: 10/12/16 06:00 Dose: 75 mls/hr Ceftriaxone Sodium 2 gm/ (Sodium Chloride) 100 mls @ 100 mls/hr IVPB Q12 [facility] Last Admin: 10/12/16 09:10 Dose: 100 mls/hr Insulin Human Regular 100 unit (/ Sodium Chloride) 100 mls @ 10 mls/hr IV .Q10H PRN; Protocol; 10 UNIT/HR PRN Reason: .TITR Last Titration: 10/12/16 12:00 Dose: 7 unit/hr, 7 mls/hr Propofol (Diprivan) 1,000 mg in 100 mls @ 3.201 mls/hr IV .Q24H PRN; Protocol; 5 MCG/KG/MIN PRN Reason: TITRATE PER MD ORDER Last Admin: 10/12/16 12:44 Dose: 10 mcg/kg/min, 6.402 mls/hr Insulin Glargine (Lantus) 12 unit SC HS [facility] Last Admin: 10/12/16 00:47 Dose: 12 u Lorazepam (Ativan) 2 mg IVP Q6H PRN PRN Reason: Anxiety Last Admin: 10/10/16 05:30 Dose: 2 mg Pantoprazole Sodium (Protonix Susp) 40 mg PO DAILY [facility] Last Admin: 10/12/16 09:15 Dose: 40 mg - Labs Labs: 10/12/16 06:31 10/12/16 06:31 PT 16.5 SECONDS (9.7-12.2) H 10/09/16 12:53 INR 1.4 10/09/16 12:53 APTT 39 SECONDS (21-34) H 10/09/16 12:53
[2016-10-12 17:13] LABS: CHLORIDE 122 mmol/L (98-107)
[2016-10-12 17:14] LABS: POTASSIUM 3.7 mmol/L (3.6-5.2); SODIUM 147 mmol/L (132-148)
[2016-10-12 17:16] LABS: GFR AFRICAN-AMERICAN > 60
[2016-10-12 17:17] LABS: BLOOD UREA NITROGEN 30 mg/dL (7-17); CARBON DIOXIDE 15 mmol/L (22-30); GLUCOSE,RANDOM 277 mg/dL (65-105)
[2016-10-12 17:18] LABS: CALCIUM 9.9 mg/dl (8.6-10.4); MAGNESIUM 2.2 mg/dL (1.6-2.3)
[2016-10-13] MEDS: Propofol 10 mg/ml 1,000 MG/100 ML VIAL IV PRN (01:00)
[2016-10-13] MEDS: Sodium Chloride 0.9% 1,000 ML IV SCH (01:00)
[2016-10-13 05:34] LABS: ABG ALLEN TEST POS; ABG MECHANICAL RATE 18; ARTERIAL BLOOD HGB O2 SAT 95.5 % (95.0-98.0); ATERIAL BLOOD GAS PEEP 5; CARBOXYHEMOGLOBIN 1.3 % (0.5-1.5); DRAW SITE R RAD; HHB 2.3 % (0.0-5.0); METHEMOGLOBIN 0.8 % (0.0-3.0)
[2016-10-13 06:33] LABS: BASO % 0.1 % (0.0-2.0); HEMATOCRIT 36.5 % (34.0-47.0); LYMPH # 1.8 K/uL (1.0-4.3); LYMPH % 10.1 % (20.0-40.0); MEAN CELL VOLUME 88.9 fL (81.0-99.0); MEAN CORPUSCULAR HEMOGLOBIN 28.8 pg (27.0-31.0); MEAN CORPUSCULAR HGB CONC 32.4 g/dL (33.0-37.0); MEAN PLATELET VOLUME 8.3 fL (7.2-11.7); MONO # 0.8 K/uL (0.0-0.8); MONO % 4.4 % (0.0-10.0); RED CELL DISTRIBUTION WIDTH 13.5 % (11.5-14.5); WHITE BLOOD COUNT 18.2 K/uL (4.8-10.8)
[2016-10-13 06:42] LABS: CHLORIDE 120 mmol/L (98-107); POTASSIUM 3.6 mmol/L (3.6-5.2); SODIUM 148 mmol/L (132-148)
[2016-10-13 06:44] LABS: ALB/GLOB RATIO 0.7 (1.0-2.1); ALKALINE PHOSPHATASE 73 U/L (38-126); AST/SGOT 41 U/L (14-36); BILIRUBIN,TOTAL 0.6 mg/dL (0.2-1.3); CARBON DIOXIDE 18 mmol/L (22-30); GFR AFRICAN-AMERICAN > 60; TOTAL PROTEIN 6.2 g/dL (6.3-8.3)
[2016-10-13 06:45] LABS: ALT/SGPT 31 U/L (9-52); BLOOD UREA NITROGEN 29 mg/dL (7-17); CALCIUM 9.7 mg/dl (8.6-10.4); GLUCOSE,RANDOM 238 mg/dL (65-105); MAGNESIUM 2.2 mg/dL (1.6-2.3); PHOSPHOROUS 2.1 mg/dL (2.5-4.5)
[2016-10-13] MEDS ORDERED: (Lantus) Insulin Glargine, Recombinant SC ONE (07:21)
--- NOTE | 2016-10-13 08:05 | CP.CCUPN ---
CCU Subjective - Physician Review Subjective (Free Text): no overnight events. Afeb VSS Gen: minimaly responsive on low dose propofol gtt HEENT: Pupils dilated; sluggish. L eye erythematous. ETT/NGT Neck: Supple COR: S1, S2, RRR Resp: coarse rhonchi b/l ABD: Soft, nt/nd, BS +ve Ext: UE edema B/L Neuro: opens eyes to noxious. B/L LE brisk withdrawal. no response from UE to noxious stimuli. Meds / Labs / Imaging reviewed independently as noted below. A/P: 61M with severe sepsis/MOSF likely 2/2 meningitis (most likely S. pneumo) ; s. pneumo bacteremia and poss pna; acute hypoxic resp failure Neuro: neuro f/u noted; maintain Na 145-150. check daily serum Osm. MRI when feasible. Resp: wean vent as tolerated; f/u ABG/CXR -- doubt pt will wean given poor neuro exam; if family desires, will need trach / peg in near future Cards: hemodynamically stable; f/u rpt echo GI: TF; GI PPx Renal: UOP adequate; replete lytes; start diuretics ID: on rocephin and vanc; f/u rpt echo; rpt blood cx negative so far; high dose steroids Endo: Insulin gtt; start SQ insulin and increase Heme: SCDs; Hep sq dvt ppx prognosis quite guarded Rj Burrell MD CC time spent 35min 10/13/16 10:50 CCU Objective - Vital Signs / Intake & Output Vital Signs (Last 4 hours): Vital Signs Pulse Resp BP Pulse Ox 10/13/16 07:05 82 28 H 177/87 H 91 L 10/13/16 07:00 82 23 96 10/13/16 06:05 59 L 20 147/66 91 L 10/13/16 06:00 61 18 96 10/13/16 05:05 57 L 19 144/67 91 L 10/13/16 05:00 58 L 19 96 10/13/16 04:40 82 23 175/94 H 96 Intake and Output (Last 8hrs): Intake & Output 10/12/16 10/13/16 10/13/16 22:59 06:59 14:59 Intake Total 1191.2 1198.2 125.9 Output Total 745 800 100 Balance 446.2 398.2 25.9 Weight 253 lb 2 oz Intake: IV 13 156 Intake, IV Amount 838.2 722.2 85.9 Right Forearm 84 Right Jug TLC Distal 49 42 4 Right Jug TLC Medial 650 625 75 Right Jug TLC Proximal 55.2 55.2 6.9 Tube Feeding 340 320 40 Output: Urine 745 800 100 Urethral ([place]) 745 800 100 - Medications Active Medications: Active Medications Generic Name Dose Route Start Last Admin Trade Name Freq PRN Reason Stop Dose Admin Acetaminophen 650 mg 10/09/16 00:41 10/11/16 02:09 Tylenol 650mg/20.3ml Solution Ud NG 650 mg Q6 PRN Administration FOR TEMP 101*F OR ABOVE Artificial Tears 1 gm 10/11/16 10:30 10/12/16 17:14 Lacri-Lube OU 1 gm BID MINI Administration Dexamethasone 10 mg 10/10/16 22:00 10/13/16 05:18 Decadron Inj IVP 10/13/16 19:13 10 mg Q8 MINI Administration Enoxaparin Sodium 40 mg 10/09/16 17:30 10/12/16 09:15 Lovenox SC 40 mg DAILY MINI Administration Furosemide 40 mg 10/13/16 10:00 Lasix IVP DAILY MINI Vancomycin/Sodium Chloride 1 gm in 200 mls @ 133.333 mls/hr 10/09/16 10:30 21:54 Vancocin IVPB 10/14/16 10:31 133.333 mls/hr Q12H MINI Administration Ceftriaxone Sodium 2 gm/ 100 mls @ 100 mls/hr 10/10/16 22:00 10/12/16 21:00 Sodium Chloride IVPB 100 mls/hr Q12 MINI Administration Insulin Human Regular 100 unit 100 mls @ 10 mls/hr 10/11/16 12:00 10/13/16 06 :10 / Sodium Chloride IV 4 unit/hr .Q10H PRN 4 mls/hr .TITR Titration Protocol 10 UNIT/HR Propofol 1,000 mg in 100 mls @ 3.201 mls/hr 10/12/16 00:25 10/13/16 01:00 Diprivan IV 10 mcg/kg/min .Q24H PRN 6.402 mls/hr TITRATE PER MD ORDER Administration Protocol 5 MCG/KG/MIN Insulin Glargine 30 unit 10/13/16 07:22 Lantus SC HS MINI Lactulose 20 gm 10/12/16 18:00 10/12/16 17:14 Enulose NG 20 gm BID MINI Administration Lorazepam 2 mg 10/09/16 21:06 10/10/16 05:30 Ativan IVP 2 mg Q6H PRN Administration Anxiety Metoprolol Tartrate 25 mg 10/12/16 18:00 10/12/16 17:14 Lopressor NG 25 mg BID MINI Administration Pantoprazole Sodium 40 mg 10/12/16 10:00 10/12/16 09:15 Protonix Susp PO 40 mg DAILY MINI Administration - Patient Studies Lab Studies: Microbiology Studies 10/11/16 08:30 Blood Culture - Preliminary Blood-Venous NO GROWTH AFTER 24 HOURS 10/11/16 08:00 Blood Culture - Preliminary Blood-Venous NO GROWTH AFTER 24 HOURS 10/10/16 10:57 Gram Stain - Final Cerebral Spinal Fluid CSF Culture - Preliminary NO GROWTH AFTER 2 DAYS Lab Studies 10/13/16 10/13/16 10/13/16 Range/Units 06:58 06:21 06:21 WBC 18.2 H (4.8-10.8) K/uL RBC 4.10 (3.80-5.20) Mil/uL Hgb 11.8 (11.0-16.0) g/dL Hct 36.5 (34.0-47.0) % MCV 88.9 (81.0-99.0) fL MCH 28.8 (27.0-31.0) pg MCHC 32.4 L (33.0-37.0) g/dL RDW 13.5 (11.5-14.5) % Plt Count 296 (130-400) K/uL MPV 8.3 (7.2-11.7) fL Neut % (Auto) 85.4 H (50.0-75.0) % Lymph % (Auto) 10.1 L (20.0-40.0) % [place] % (Auto) 4.4 (0.0-10.0) % Eos % (Auto) 0.0 (0.0-4.0) % Baso % (Auto) 0.1 (0.0-2.0) % Neut # 15.5 H (1.8-7.0) K/uL Lymph # 1.8 (1.0-4.3) K/uL [place] # 0.8 (0.0-0.8) K/uL Eos # 0.0 (0.0-0.7) K/uL Baso # 0.0 (0.0-0.2) K/uL Neutrophils % (Manual) (50-75) % Band Neutrophils % (0-2) % Lymphocytes % (Manual) (20-40) % Monocytes % (Manual) (0-10) % Metamyelocytes % (0-0) % Toxic Granulation Platelet Estimate (NORMAL) Large Platelets Anisocytosis (manual) Puncture Site pCO2 (35-45) mm/Hg pO2 (80-100) mm/Hg HCO3 (21-28) mmol/L ABG pH (7.35-7.45) ABG Total CO2 (22-28) mmol/L ABG O2 Saturation (95-98) % ABG Base Excess (-2.0-3.0) mmol/L ABG Hemoglobin (11.7-17.4) g/dL ABG Carboxyhemoglobin (0.5-1.5) % POC ABG HHb (Measured) (0.0-5.0) % ABG Methemoglobin (0.0-3.0) % Nico Test A-a O2 Difference mm/Hg Respiratory Index Hgb O2 Saturation (95.0-98.0) % Mechanical Rate FiO2 % Tidal Volume PEEP Sodium 148 (132-148) mmol/L Potassium 3.6 (3.6-5.2) mmol/L Chloride 120 H (98-107) mmol/L Carbon Dioxide 18 L (22-30) mmol/L Anion Gap 14 (10-20) BUN 29 H (7-17) mg/dL Creatinine 0.5 L (0.7-1.2) MG/DL Est GFR ( Amer) > 60 Est GFR (Non-Af Amer) > 60 POC Glucose (mg/dL) 243 H (65-110) mg/dL Random Glucose 238 H (65-105) mg/dL Serum Osmolality (272-300) mosm/kg Calcium 9.7 (8.6-10.4) mg/dl Phosphorus 2.1 L (2.5-4.5) mg/dL Magnesium 2.2 (1.6-2.3) mg/dL Total Bilirubin 0.6 (0.2-1.3) mg/dL AST 41 H D (14-36) U/L ALT 31 (9-52) U/L Alkaline Phosphatase 73 (38-126) U/L Total Protein 6.2 L (6.3-8.3) g/dL Albumin 2.6 L (3.5-5.0) g/dL Globulin 3.6 (2.2-3.9) gm/dL Albumin/Globulin Ratio 0.7 L (1.0-2.1) CSF LDH (<=25) U/L HSV Source Description HSV I DNA PCR (Not Detected) HSV II DNA PCR (Not Detected) 10/13/16 10/13/16 10/13/16 Range/Units 06:11 05:15 05:10 WBC (4.8-10.8) K/uL RBC (3.80-5.20) Mil/uL Hgb (11.0-16.0) g/dL Hct (34.0-47.0) % MCV (81.0-99.0) fL MCH (27.0-31.0) pg MCHC (33.0-37.0) g/dL RDW (11.5-14.5) % Plt Count (130-400) K/uL MPV (7.2-11.7) fL Neut % (Auto) (50.0-75.0) % Lymph % (Auto) (20.0-40.0) % [place] % (Auto) (0.0-10.0) % Eos % (Auto) (0.0-4.0) % Baso % (Auto) (0.0-2.0) % Neut # (1.8-7.0) K/uL Lymph # (1.0-4.3) K/uL [place] # (0.0-0.8) K/uL Eos # (0.0-0.7) K/uL Baso # (0.0-0.2) K/uL Neutrophils % (Manual) (50-75) % Band Neutrophils % (0-2) % Lymphocytes % (Manual) (20-40) % Monocytes % (Manual) (0-10) % Metamyelocytes % (0-0) % Toxic Granulation Platelet Estimate (NORMAL) Large Platelets Anisocytosis (manual) Puncture Site R rad pCO2 28 L (35-45) mm/Hg pO2 82 (80-100) mm/Hg HCO3 20.5 L (21-28) mmol/L ABG pH 7.41 (7.35-7.45) ABG Total CO2 18.6 L (22-28) mmol/L ABG O2 Saturation 97.6 (95-98) % ABG Base Excess -5.6 L (-2.0-3.0) mmol/L ABG Hemoglobin 12.6 (11.7-17.4) g/dL ABG Carboxyhemoglobin 1.3 (0.5-1.5) % POC ABG HHb (Measured) 2.3 (0.0-5.0) % ABG Methemoglobin 0.8 (0.0-3.0) % Nico Test Pos A-a O2 Difference 97.0 mm/Hg Respiratory Index 1.2 Hgb O2 Saturation 95.5 (95.0-98.0) % Mechanical Rate 18 FiO2 30.0 % Tidal Volume 500 PEEP 5 Sodium (132-148) mmol/L Potassium (3.6-5.2) mmol/L Chloride (98-107) mmol/L Carbon Dioxide (22-30) mmol/L Anion Gap (10-20) BUN (7-17) mg/dL Creatinine (0.7-1.2) MG/DL Est GFR ( Amer) Est GFR (Non-Af Amer) POC Glucose (mg/dL) 226 H 287 H (65-110) mg/dL Random Glucose (65-105) mg/dL Serum Osmolality (272-300) mosm/kg Calcium (8.6-10.4) mg/dl Phosphorus (2.5-4.5) mg/dL Magnesium (1.6-2.3) mg/dL Total Bilirubin (0.2-1.3) mg/dL AST (14-36) U/L ALT (9-52) U/L Alkaline Phosphatase (38-126) U/L Total Protein (6.3-8.3) g/dL Albumin (3.5-5.0) g/dL Globulin (2.2-3.9) gm/dL Albumin/Globulin Ratio (1.0-2.1) CSF LDH (<=25) U/L HSV Source Description HSV I DNA PCR (Not Detected) HSV II DNA PCR (Not Detected) 10/13/16 10/13/16 10/13/16 Range/Units 02:46 01:52 01:22 WBC (4.8-10.8) K/uL RBC (3.80-5.20) Mil/uL Hgb (11.0-16.0) g/dL Hct (34.0-47.0) % MCV (81.0-99.0) fL MCH (27.0-31.0) pg MCHC (33.0-37.0) g/dL RDW (11.5-14.5) % Plt Count (130-400) K/uL MPV (7.2-11.7) fL Neut % (Auto) (50.0-75.0) % Lymph % (Auto) (20.0-40.0) % [place] % (Auto) (0.0-10.0) % Eos % (Auto) (0.0-4.0) % Baso % (Auto) (0.0-2.0) % Neut # (1.8-7.0) K/uL Lymph # (1.0-4.3) K/uL [place] # (0.0-0.8) K/uL Eos # (0.0-0.7) K/uL Baso # (0.0-0.2) K/uL Neutrophils % (Manual) (50-75) % Band Neutrophils % (0-2) % Lymphocytes % (Manual) (20-40) % Monocytes % (Manual) (0-10) % Metamyelocytes % (0-0) % Toxic Granulation Platelet Estimate (NORMAL) Large Platelets Anisocytosis (manual) Puncture Site pCO2 (35-45) mm/Hg pO2 (80-100) mm/Hg HCO3 (21-28) mmol/L ABG pH (7.35-7.45) ABG Total CO2 (22-28) mmol/L ABG O2 Saturation (95-98) % ABG Base Excess (-2.0-3.0) mmol/L ABG Hemoglobin (11.7-17.4) g/dL ABG Carboxyhemoglobin (0.5-1.5) % POC ABG HHb (Measured) (0.0-5.0) % ABG Methemoglobin (0.0-3.0) % Nico Test A-a O2 Difference mm/Hg Respiratory Index Hgb O2 Saturation (95.0-98.0) % Mechanical Rate FiO2 % Tidal Volume PEEP Sodium (132-148) mmol/L Potassium (3.6-5.2) mmol/L Chloride (98-107) mmol/L Carbon Dioxide (22-30) mmol/L Anion Gap (10-20) BUN (7-17) mg/dL Creatinine (0.7-1.2) MG/DL Est GFR ( Amer) Est GFR (Non-Af Amer) POC Glucose (mg/dL) 225 H 267 H 250 H (65-110) mg/dL Random Glucose (65-105) mg/dL Serum Osmolality (272-300) mosm/kg Calcium (8.6-10.4) mg/dl Phosphorus (2.5-4.5) mg/dL Magnesium (1.6-2.3) mg/dL Total Bilirubin (0.2-1.3) mg/dL AST (14-36) U/L ALT (9-52) U/L Alkaline Phosphatase (38-126) U/L Total Protein (6.3-8.3) g/dL Albumin (3.5-5.0) g/dL Globulin (2.2-3.9) gm/dL Albumin/Globulin Ratio (1.0-2.1) CSF LDH (<=25) U/L HSV Source Description HSV I DNA PCR (Not Detected) HSV II DNA PCR (Not Detected) 10/12/16 10/12/16 10/12/16 Range/Units 23:39 22:50 22:01 WBC (4.8-10.8) K/uL RBC (3.80-5.20) Mil/uL Hgb (11.0-16.0) g/dL Hct (34.0-47.0) % MCV (81.0-99.0) fL MCH (27.0-31.0) pg MCHC (33.0-37.0) g/dL RDW (11.5-14.5) % Plt Count (130-400) K/uL MPV (7.2-11.7) fL Neut % (Auto) (50.0-75.0) % Lymph % (Auto) (20.0-40.0) % [place] % (Auto) (0.0-10.0) % Eos % (Auto) (0.0-4.0) % Baso % (Auto) (0.0-2.0) % Neut # (1.8-7.0) K/uL Lymph # (1.0-4.3) K/uL [place] # (0.0-0.8) K/uL Eos # (0.0-0.7) K/uL Baso # (0.0-0.2) K/uL Neutrophils % (Manual) (50-75) % Band Neutrophils % (0-2) % Lymphocytes % (Manual) (20-40) % Monocytes % (Manual) (0-10) % Metamyelocytes % (0-0) % Toxic Granulation Platelet Estimate (NORMAL) Large Platelets Anisocytosis (manual) Puncture Site pCO2 (35-45) mm/Hg pO2 (80-100) mm/Hg HCO3 (21-28) mmol/L ABG pH (7.35-7.45) ABG Total CO2 (22-28) mmol/L ABG O2 Saturation (95-98) % ABG Base Excess (-2.0-3.0) mmol/L ABG Hemoglobin (11.7-17.4) g/dL ABG Carboxyhemoglobin (0.5-1.5) % POC ABG HHb (Measured) (0.0-5.0) % ABG Methemoglobin (0.0-3.0) % Nico Test A-a O2 Difference mm/Hg Respiratory Index Hgb O2 Saturation (95.0-98.0) % Mechanical Rate FiO2 % Tidal Volume PEEP Sodium (132-148) mmol/L Potassium (3.6-5.2) mmol/L Chloride (98-107) mmol/L Carbon Dioxide (22-30) mmol/L Anion Gap (10-20) BUN (7-17) mg/dL Creatinine (0.7-1.2) MG/DL Est GFR ( Amer) Est GFR (Non-Af Amer) POC Glucose (mg/dL) 266 H 247 H 254 H (65-110) mg/dL Random Glucose (65-105) mg/dL Serum Osmolality (272-300) mosm/kg Calcium (8.6-10.4) mg/dl Phosphorus (2.5-4.5) mg/dL Magnesium (1.6-2.3) mg/dL Total Bilirubin (0.2-1.3) mg/dL AST (14-36) U/L ALT (9-52) U/L Alkaline Phosphatase (38-126) U/L Total Protein (6.3-8.3) g/dL Albumin (3.5-5.0) g/dL Globulin (2.2-3.9) gm/dL Albumin/Globulin Ratio (1.0-2.1) CSF LDH (<=25) U/L HSV Source Description HSV I DNA PCR (Not Detected) HSV II DNA PCR (Not Detected) 10/12/16 10/12/16 10/12/16 Range/Units 20:54 20:38 19:58 WBC (4.8-10.8) K/uL RBC (3.80-5.20) Mil/uL Hgb (11.0-16.0) g/dL Hct (34.0-47.0) % MCV (81.0-99.0) fL MCH (27.0-31.0) pg MCHC (33.0-37.0) g/dL RDW (11.5-14.5) % Plt Count (130-400) K/uL MPV (7.2-11.7) fL Neut % (Auto) (50.0-75.0) % Lymph % (Auto) (20.0-40.0) % [place] % (Auto) (0.0-10.0) % Eos % (Auto) (0.0-4.0) % Baso % (Auto) (0.0-2.0) % Neut # (1.8-7.0) K/uL Lymph # (1.0-4.3) K/uL [place] # (0.0-0.8) K/uL Eos # (0.0-0.7) K/uL Baso # (0.0-0.2) K/uL Neutrophils % (Manual) (50-75) % Band Neutrophils % (0-2) % Lymphocytes % (Manual) (20-40) % Monocytes % (Manual) (0-10) % Metamyelocytes % (0-0) % Toxic Granulation Platelet Estimate (NORMAL) Large Platelets Anisocytosis (manual) Puncture Site pCO2 (35-45) mm/Hg pO2 (80-100) mm/Hg HCO3 (21-28) mmol/L ABG pH (7.35-7.45) ABG Total CO2 (22-28) mmol/L ABG O2 Saturation (95-98) % ABG Base Excess (-2.0-3.0) mmol/L ABG Hemoglobin (11.7-17.4) g/dL ABG Carboxyhemoglobin (0.5-1.5) % POC ABG HHb (Measured) (0.0-5.0) % ABG Methemoglobin (0.0-3.0) % Nico Test A-a O2 Difference mm/Hg Respiratory Index Hgb O2 Saturation (95.0-98.0) % Mechanical Rate FiO2 % Tidal Volume PEEP Sodium (132-148) mmol/L Potassium (3.6-5.2) mmol/L Chloride (98-107) mmol/L Carbon Dioxide (22-30) mmol/L Anion Gap (10-20) BUN (7-17) mg/dL Creatinine (0.7-1.2) MG/DL Est GFR ( Amer) Est GFR (Non-Af Amer) POC Glucose (mg/dL) 275 H 277 H 260 H (65-110) mg/dL Random Glucose (65-105) mg/dL Serum Osmolality (272-300) mosm/kg Calcium (8.6-10.4) mg/dl Phosphorus (2.5-4.5) mg/dL Magnesium (1.6-2.3) mg/dL Total Bilirubin (0.2-1.3) mg/dL AST (14-36) U/L ALT (9-52) U/L Alkaline Phosphatase (38-126) U/L Total Protein (6.3-8.3) g/dL Albumin (3.5-5.0) g/dL Globulin (2.2-3.9) gm/dL Albumin/Globulin Ratio (1.0-2.1) CSF LDH (<=25) U/L HSV Source Description HSV I DNA PCR (Not Detected) HSV II DNA PCR (Not Detected) 10/12/16 10/12/16 10/12/16 Range/Units 18:53 17:39 17:02 WBC (4.8-10.8) K/uL RBC (3.80-5.20) Mil/uL Hgb (11.0-16.0) g/dL Hct (34.0-47.0) % MCV (81.0-99.0) fL MCH (27.0-31.0) pg MCHC (33.0-37.0) g/dL RDW (11.5-14.5) % Plt Count (130-400) K/uL MPV (7.2-11.7) fL Neut % (Auto) (50.0-75.0) % Lymph % (Auto) (20.0-40.0) % [place] % (Auto) (0.0-10.0) % Eos % (Auto) (0.0-4.0) % Baso % (Auto) (0.0-2.0) % Neut # (1.8-7.0) K/uL Lymph # (1.0-4.3) K/uL [place] # (0.0-0.8) K/uL Eos # (0.0-0.7) K/uL Baso # (0.0-0.2) K/uL Neutrophils % (Manual) (50-75) % Band Neutrophils % (0-2) % Lymphocytes % (Manual) (20-40) % Monocytes % (Manual) (0-10) % Metamyelocytes % (0-0) % Toxic Granulation Platelet Estimate (NORMAL) Large Platelets Anisocytosis (manual) Puncture Site pCO2 (35-45) mm/Hg pO2 (80-100) mm/Hg HCO3 (21-28) mmol/L ABG pH (7.35-7.45) ABG Total CO2 (22-28) mmol/L ABG O2 Saturation (95-98) % ABG Base Excess (-2.0-3.0) mmol/L ABG Hemoglobin (11.7-17.4) g/dL ABG Carboxyhemoglobin (0.5-1.5) % POC ABG HHb (Measured) (0.0-5.0) % ABG Methemoglobin (0.0-3.0) % Nico Test A-a O2 Difference mm/Hg Respiratory Index Hgb O2 Saturation (95.0-98.0) % Mechanical Rate FiO2 % Tidal Volume PEEP Sodium 147 (132-148) mmol/L Potassium 3.7 (3.6-5.2) mmol/L Chloride 122 H (98-107) mmol/L Carbon Dioxide 15 L (22-30) mmol/L Anion Gap 14 (10-20) BUN 30 H (7-17) mg/dL Creatinine 0.6 L (0.7-1.2) MG/DL Est GFR ( Amer) > 60 Est GFR (Non-Af Amer) > 60 POC Glucose (mg/dL) 292 H 289 H (65-110) mg/dL Random Glucose 277 H (65-105) mg/dL Serum Osmolality (272-300) mosm/kg Calcium 9.9 (8.6-10.4) mg/dl Phosphorus 2.0 L (2.5-4.5) mg/dL Magnesium 2.2 (1.6-2.3) mg/dL Total Bilirubin (0.2-1.3) mg/dL AST (14-36) U/L ALT (9-52) U/L Alkaline Phosphatase (38-126) U/L Total Protein (6.3-8.3) g/dL Albumin (3.5-5.0) g/dL Globulin (2.2-3.9) gm/dL Albumin/Globulin Ratio (1.0-2.1) CSF LDH (<=25) U/L HSV Source Description HSV I DNA PCR (Not Detected) HSV II DNA PCR (Not Detected) 10/12/16 10/12/16 10/12/16 Range/Units 16:52 15:59 14:57 WBC (4.8-10.8) K/uL RBC (3.80-5.20) Mil/uL Hgb (11.0-16.0) g/dL Hct (34.0-47.0) % MCV (81.0-99.0) fL MCH (27.0-31.0) pg MCHC (33.0-37.0) g/dL RDW (11.5-14.5) % Plt Count (130-400) K/uL MPV (7.2-11.7) fL Neut % (Auto) (50.0-75.0) % Lymph % (Auto) (20.0-40.0) % [place] % (Auto) (0.0-10.0) % Eos % (Auto) (0.0-4.0) % Baso % (Auto) (0.0-2.0) % Neut # (1.8-7.0) K/uL Lymph # (1.0-4.3) K/uL [place] # (0.0-0.8) K/uL Eos # (0.0-0.7) K/uL Baso # (0.0-0.2) K/uL Neutrophils % (Manual) (50-75) % Band Neutrophils % (0-2) % Lymphocytes % (Manual) (20-40) % Monocytes % (Manual) (0-10) % Metamyelocytes % (0-0) % Toxic Granulation Platelet Estimate (NORMAL) Large Platelets Anisocytosis (manual) Puncture Site pCO2 (35-45) mm/Hg pO2 (80-100) mm/Hg HCO3 (21-28) mmol/L ABG pH (7.35-7.45) ABG Total CO2 (22-28) mmol/L ABG O2 Saturation (95-98) % ABG Base Excess (-2.0-3.0) mmol/L ABG Hemoglobin (11.7-17.4) g/dL ABG Carboxyhemoglobin (0.5-1.5) % POC ABG HHb (Measured) (0.0-5.0) % ABG Methemoglobin (0.0-3.0) % Nico Test A-a O2 Difference mm/Hg Respiratory Index Hgb O2 Saturation (95.0-98.0) % Mechanical Rate FiO2 % Tidal Volume PEEP Sodium (132-148) mmol/L Potassium (3.6-5.2) mmol/L Chloride (98-107) mmol/L Carbon Dioxide (22-30) mmol/L Anion Gap (10-20) BUN (7-17) mg/dL Creatinine (0.7-1.2) MG/DL Est GFR ( Amer) Est GFR (Non-Af Amer) POC Glucose (mg/dL) 302 H 255 H 278 H (65-110) mg/dL Random Glucose (65-105) mg/dL Serum Osmolality (272-300) mosm/kg Calcium (8.6-10.4) mg/dl Phosphorus (2.5-4.5) mg/dL Magnesium (1.6-2.3) mg/dL Total Bilirubin (0.2-1.3) mg/dL AST (14-36) U/L ALT (9-52) U/L Alkaline Phosphatase (38-126) U/L Total Protein (6.3-8.3) g/dL Albumin (3.5-5.0) g/dL Globulin (2.2-3.9) gm/dL Albumin/Globulin Ratio (1.0-2.1) CSF LDH (<=25) U/L HSV Source Description HSV I DNA PCR (Not Detected) HSV II DNA PCR (Not Detected) 10/12/16 10/12/16 10/12/16 Range/Units 14:01 13:11 12:18 WBC (4.8-10.8) K/uL RBC (3.80-5.20) Mil/uL Hgb (11.0-16.0) g/dL Hct (34.0-47.0) % MCV (81.0-99.0) fL MCH (27.0-31.0) pg MCHC (33.0-37.0) g/dL RDW (11.5-14.5) % Plt Count (130-400) K/uL MPV (7.2-11.7) fL Neut % (Auto) (50.0-75.0) % Lymph % (Auto) (20.0-40.0) % [place] % (Auto) (0.0-10.0) % Eos % (Auto) (0.0-4.0) % Baso % (Auto) (0.0-2.0) % Neut # (1.8-7.0) K/uL Lymph # (1.0-4.3) K/uL [place] # (0.0-0.8) K/uL Eos # (0.0-0.7) K/uL Baso # (0.0-0.2) K/uL Neutrophils % (Manual) (50-75) % Band Neutrophils % (0-2) % Lymphocytes % (Manual) (20-40) % Monocytes % (Manual) (0-10) % Metamyelocytes % (0-0) % Toxic Granulation Platelet Estimate (NORMAL) Large Platelets Anisocytosis (manual) Puncture Site pCO2 (35-45) mm/Hg pO2 (80-100) mm/Hg HCO3 (21-28) mmol/L ABG pH (7.35-7.45) ABG Total CO2 (22-28) mmol/L ABG O2 Saturation (95-98) % ABG Base Excess (-2.0-3.0) mmol/L ABG Hemoglobin (11.7-17.4) g/dL ABG Carboxyhemoglobin (0.5-1.5) % POC ABG HHb (Measured) (0.0-5.0) % ABG Methemoglobin (0.0-3.0) % Nico Test A-a O2 Difference mm/Hg Respiratory Index Hgb O2 Saturation (95.0-98.0) % Mechanical Rate FiO2 % Tidal Volume PEEP Sodium (132-148) mmol/L Potassium (3.6-5.2) mmol/L Chloride (98-107) mmol/L Carbon Dioxide (22-30) mmol/L Anion Gap (10-20) BUN (7-17) mg/dL Creatinine (0.7-1.2) MG/DL Est GFR ( Amer) Est GFR (Non-Af Amer) POC Glucose (mg/dL) 274 H 267 H 319 H (65-110) mg/dL Random Glucose (65-105) mg/dL Serum Osmolality (272-300) mosm/kg Calcium (8.6-10.4) mg/dl Phosphorus (2.5-4.5) mg/dL Magnesium (1.6-2.3) mg/dL Total Bilirubin (0.2-1.3) mg/dL AST (14-36) U/L ALT (9-52) U/L Alkaline Phosphatase (38-126) U/L Total Protein (6.3-8.3) g/dL Albumin (3.5-5.0) g/dL Globulin (2.2-3.9) gm/dL Albumin/Globulin Ratio (1.0-2.1) CSF LDH (<=25) U/L HSV Source Description HSV I DNA PCR (Not Detected) HSV II DNA PCR (Not Detected) 10/12/16 10/12/16 10/12/16 Range/Units 10:59 10:11 10:05 WBC (4.8-10.8) K/uL RBC (3.80-5.20) Mil/uL Hgb (11.0-16.0) g/dL Hct (34.0-47.0) % MCV (81.0-99.0) fL MCH (27.0-31.0) pg MCHC (33.0-37.0) g/dL RDW (11.5-14.5) % Plt Count (130-400) K/uL MPV (7.2-11.7) fL Neut % (Auto) (50.0-75.0) % Lymph % (Auto) (20.0-40.0) % [place] % (Auto) (0.0-10.0) % Eos % (Auto) (0.0-4.0) % Baso % (Auto) (0.0-2.0) % Neut # (1.8-7.0) K/uL Lymph # (1.0-4.3) K/uL [place] # (0.0-0.8) K/uL Eos # (0.0-0.7) K/uL Baso # (0.0-0.2) K/uL Neutrophils % (Manual) (50-75) % Band Neutrophils % (0-2) % Lymphocytes % (Manual) (20-40) % Monocytes % (Manual) (0-10) % Metamyelocytes % (0-0) % Toxic Granulation Platelet Estimate (NORMAL) Large Platelets Anisocytosis (manual) Puncture Site pCO2 (35-45) mm/Hg pO2 (80-100) mm/Hg HCO3 (21-28) mmol/L ABG pH (7.35-7.45) ABG Total CO2 (22-28) mmol/L ABG O2 Saturation (95-98) % ABG Base Excess (-2.0-3.0) mmol/L ABG Hemoglobin (11.7-17.4) g/dL ABG Carboxyhemoglobin (0.5-1.5) % POC ABG HHb (Measured) (0.0-5.0) % ABG Methemoglobin (0.0-3.0) % Nico Test A-a O2 Difference mm/Hg Respiratory Index Hgb O2 Saturation (95.0-98.0) % Mechanical Rate FiO2 % Tidal Volume PEEP Sodium (132-148) mmol/L Potassium (3.6-5.2) mmol/L Chloride (98-107) mmol/L Carbon Dioxide (22-30) mmol/L Anion Gap (10-20) BUN (7-17) mg/dL Creatinine (0.7-1.2) MG/DL Est GFR ( Amer) Est GFR (Non-Af Amer) POC Glucose (mg/dL) 285 H 309 H 268 H (65-110) mg/dL Random Glucose (65-105) mg/dL Serum Osmolality (272-300) mosm/kg Calcium (8.6-10.4) mg/dl Phosphorus (2.5-4.5) mg/dL Magnesium (1.6-2.3) mg/dL Total Bilirubin (0.2-1.3) mg/dL AST (14-36) U/L ALT (9-52) U/L Alkaline Phosphatase (38-126) U/L Total Protein (6.3-8.3) g/dL Albumin (3.5-5.0) g/dL Globulin (2.2-3.9) gm/dL Albumin/Globulin Ratio (1.0-2.1) CSF LDH (<=25) U/L HSV Source Description HSV I DNA PCR (Not Detected) HSV II DNA PCR (Not Detected) 10/12/16 10/12/16 10/12/16 Range/Units 09:06 08:39 08:04 WBC (4.8-10.8) K/uL RBC (3.80-5.20) Mil/uL Hgb (11.0-16.0) g/dL Hct (34.0-47.0) % MCV (81.0-99.0) fL MCH (27.0-31.0) pg MCHC (33.0-37.0) g/dL RDW (11.5-14.5) % Plt Count (130-400) K/uL MPV (7.2-11.7) fL Neut % (Auto) (50.0-75.0) % Lymph % (Auto) (20.0-40.0) % [place] % (Auto) (0.0-10.0) % Eos % (Auto) (0.0-4.0) % Baso % (Auto) (0.0-2.0) % Neut # (1.8-7.0) K/uL Lymph # (1.0-4.3) K/uL [place] # (0.0-0.8) K/uL Eos # (0.0-0.7) K/uL Baso # (0.0-0.2) K/uL Neutrophils % (Manual) (50-75) % Band Neutrophils % (0-2) % Lymphocytes % (Manual) (20-40) % Monocytes % (Manual) (0-10) % Metamyelocytes % (0-0) % Toxic Granulation Platelet Estimate (NORMAL) Large Platelets Anisocytosis (manual) Puncture Site pCO2 (35-45) mm/Hg pO2 (80-100) mm/Hg HCO3 (21-28) mmol/L ABG pH (7.35-7.45) ABG Total CO2 (22-28) mmol/L ABG O2 Saturation (95-98) % ABG Base Excess (-2.0-3.0) mmol/L ABG Hemoglobin (11.7-17.4) g/dL ABG Carboxyhemoglobin (0.5-1.5) % POC ABG HHb (Measured) (0.0-5.0) % ABG Methemoglobin (0.0-3.0) % Nico Test A-a O2 Difference mm/Hg Respiratory Index Hgb O2 Saturation (95.0-98.0) % Mechanical Rate FiO2 % Tidal Volume PEEP Sodium (132-148) mmol/L Potassium (3.6-5.2) mmol/L Chloride (98-107) mmol/L Carbon Dioxide (22-30) mmol/L Anion Gap (10-20) BUN (7-17) mg/dL Creatinine (0.7-1.2) MG/DL Est GFR ( Amer) Est GFR (Non-Af Amer) POC Glucose (mg/dL) 274 H 247 H (65-110) mg/dL Random Glucose (65-105) mg/dL Serum Osmolality 327 H (272-300) mosm/kg Calcium (8.6-10.4) mg/dl Phosphorus (2.5-4.5) mg/dL Magnesium (1.6-2.3) mg/dL Total Bilirubin (0.2-1.3) mg/dL AST (14-36) U/L ALT (9-52) U/L Alkaline Phosphatase (38-126) U/L Total Protein (6.3-8.3) g/dL Albumin (3.5-5.0) g/dL Globulin (2.2-3.9) gm/dL Albumin/Globulin Ratio (1.0-2.1) CSF LDH (<=25) U/L HSV Source Description HSV I DNA PCR (Not Detected) HSV II DNA PCR (Not Detected) 10/12/16 10/10/16 10/10/16 Range/Units 06:31 14:56 12:41 WBC (4.8-10.8) K/uL RBC (3.80-5.20) Mil/uL Hgb (11.0-16.0) g/dL Hct (34.0-47.0) % MCV (81.0-99.0) fL MCH (27.0-31.0) pg MCHC (33.0-37.0) g/dL RDW (11.5-14.5) % Plt Count (130-400) K/uL MPV (7.2-11.7) fL Neut % (Auto) (50.0-75.0) % Lymph % (Auto) (20.0-40.0) % [place] % (Auto) (0.0-10.0) % Eos % (Auto) (0.0-4.0) % Baso % (Auto) (0.0-2.0) % Neut # (1.8-7.0) K/uL Lymph # (1.0-4.3) K/uL [place] # (0.0-0.8) K/uL Eos # (0.0-0.7) K/uL Baso # (0.0-0.2) K/uL Neutrophils % (Manual) 86 H (50-75) % Band Neutrophils % 2 (0-2) % Lymphocytes % (Manual) 9 L (20-40) % Monocytes % (Manual) 2 (0-10) % Metamyelocytes % 1 H (0-0) % Toxic Granulation Present Platelet Estimate Normal (NORMAL) Large Platelets Present Anisocytosis (manual) Slight Puncture Site pCO2 (35-45) mm/Hg pO2 (80-100) mm/Hg HCO3 (21-28) mmol/L ABG pH (7.35-7.45) ABG Total CO2 (22-28) mmol/L ABG O2 Saturation (95-98) % ABG Base Excess (-2.0-3.0) mmol/L ABG Hemoglobin (11.7-17.4) g/dL ABG Carboxyhemoglobin (0.5-1.5) % POC ABG HHb (Measured) (0.0-5.0) % ABG Methemoglobin (0.0-3.0) % Nico Test A-a O2 Difference mm/Hg Respiratory Index Hgb O2 Saturation (95.0-98.0) % Mechanical Rate FiO2 % Tidal Volume PEEP Sodium (132-148) mmol/L Potassium (3.6-5.2) mmol/L Chloride (98-107) mmol/L Carbon Dioxide (22-30) mmol/L Anion Gap (10-20) BUN (7-17) mg/dL Creatinine (0.7-1.2) MG/DL Est GFR ( Amer) Est GFR (Non-Af Amer) POC Glucose (mg/dL) (65-110) mg/dL Random Glucose (65-105) mg/dL Serum Osmolality (272-300) mosm/kg Calcium (8.6-10.4) mg/dl Phosphorus (2.5-4.5) mg/dL Magnesium (1.6-2.3) mg/dL Total Bilirubin (0.2-1.3) mg/dL AST (14-36) U/L ALT (9-52) U/L Alkaline Phosphatase (38-126) U/L Total Protein (6.3-8.3) g/dL Albumin (3.5-5.0) g/dL Globulin (2.2-3.9) gm/dL Albumin/Globulin Ratio (1.0-2.1) CSF LDH 4356 H (<=25) U/L HSV Source Description Csf HSV I DNA PCR Not detected (Not Detected) HSV II DNA PCR Not detected (Not Detected) Laboratory Results - last 24 hr 10/10/16 10/10/16 10/12/16 12:41 14:56 06:31 WBC RBC Hgb Hct MCV MCH MCHC RDW Plt Count MPV Neut % (Auto) Lymph % (Auto) [place] % (Auto) Eos % (Auto) Baso % (Auto) Neut # Lymph # [place] # Eos # Baso # Neutrophils % (Manual) 86 H Band Neutrophils % 2 Lymphocytes % (Manual) 9 L Monocytes % (Manual) 2 Metamyelocytes % 1 H Toxic Granulation Present Platelet Estimate Normal Large Platelets Present Anisocytosis (manual) Slight Puncture Site pCO2 pO2 HCO3 ABG pH ABG Total CO2 ABG O2 Saturation ABG Base Excess ABG Hemoglobin ABG Carboxyhemoglobin POC ABG HHb (Measured) ABG Methemoglobin Nico Test A-a O2 Difference Respiratory Index Hgb O2 Saturation Mechanical Rate FiO2 Tidal Volume PEEP Sodium Potassium Chloride Carbon Dioxide Anion Gap BUN Creatinine Est GFR ( Amer) Est GFR (Non-Af Amer) POC Glucose (mg/dL) Random Glucose Serum Osmolality Calcium Phosphorus Magnesium Total Bilirubin AST ALT Alkaline Phosphatase Total Protein Albumin Globulin Albumin/Globulin Ratio CSF LDH 4356 H HSV Source Description Csf HSV I DNA PCR Not detected HSV II DNA PCR Not detected 10/12/16 10/12/16 10/12/16 08:04 08:39 09:06 WBC RBC Hgb Hct MCV MCH MCHC RDW Plt Count MPV Neut % (Auto) Lymph % (Auto) [place] % (Auto) Eos % (Auto) Baso % (Auto) Neut # Lymph # [place] # Eos # Baso # Neutrophils % (Manual) Band Neutrophils % Lymphocytes % (Manual) Monocytes % (Manual) Metamyelocytes % Toxic Granulation Platelet Estimate Large Platelets Anisocytosis (manual) Puncture Site pCO2 pO2 HCO3 ABG pH ABG Total CO2 ABG O2 Saturation ABG Base Excess ABG Hemoglobin ABG Carboxyhemoglobin POC ABG HHb (Measured) ABG Methemoglobin Nico Test A-a O2 Difference Respiratory Index Hgb O2 Saturation Mechanical Rate FiO2 Tidal Volume PEEP Sodium Potassium Chloride Carbon Dioxide Anion Gap BUN Creatinine Est GFR ( Amer) Est GFR (Non-Af Amer) POC Glucose (mg/dL) 247 H 274 H Random Glucose Serum Osmolality 327 H Calcium Phosphorus Magnesium Total Bilirubin AST ALT Alkaline Phosphatase Total Protein Albumin Globulin Albumin/Globulin Ratio CSF LDH HSV Source Description HSV I DNA PCR HSV II DNA PCR 10/12/16 10/12/16 10/12/16 10:05 10:11 10:59 WBC RBC Hgb Hct MCV MCH MCHC RDW Plt Count MPV Neut % (Auto) Lymph % (Auto) [place] % (Auto) Eos % (Auto) Baso % (Auto) Neut # Lymph # [place] # Eos # Baso # Neutrophils % (Manual) Band Neutrophils % Lymphocytes % (Manual) Monocytes % (Manual) Metamyelocytes % Toxic Granulation Platelet Estimate Large Platelets Anisocytosis (manual) Puncture Site pCO2 pO2 HCO3 ABG pH ABG Total CO2 ABG O2 Saturation ABG Base Excess ABG Hemoglobin ABG Carboxyhemoglobin POC ABG HHb (Measured) ABG Methemoglobin Nico Test A-a O2 Difference Respiratory Index Hgb O2 Saturation Mechanical Rate FiO2 Tidal Volume PEEP Sodium Potassium Chloride Carbon Dioxide Anion Gap BUN Creatinine Est GFR ( Amer) Est GFR (Non-Af Amer) POC Glucose (mg/dL) 268 H 309 H 285 H Random Glucose Serum Osmolality Calcium Phosphorus Magnesium Total Bilirubin AST ALT Alkaline Phosphatase Total Protein Albumin Globulin Albumin/Globulin Ratio CSF LDH HSV Source Description HSV I DNA PCR HSV II DNA PCR 10/12/16 10/12/16 10/12/16 12:18 13:11 14:01 WBC RBC Hgb Hct MCV MCH MCHC RDW Plt Count MPV Neut % (Auto) Lymph % (Auto) [place] % (Auto) Eos % (Auto) Baso % (Auto) Neut # Lymph # [place] # Eos # Baso # Neutrophils % (Manual) Band Neutrophils % Lymphocytes % (Manual) Monocytes % (Manual) Metamyelocytes % Toxic Granulation Platelet Estimate Large Platelets Anisocytosis (manual) Puncture Site pCO2 pO2 HCO3 ABG pH ABG Total CO2 ABG O2 Saturation ABG Base Excess ABG Hemoglobin ABG Carboxyhemoglobin POC ABG HHb (Measured) ABG Methemoglobin Nico Test A-a O2 Difference Respiratory Index Hgb O2 Saturation Mechanical Rate FiO2 Tidal Volume PEEP Sodium Potassium Chloride Carbon Dioxide Anion Gap BUN Creatinine Est GFR ( Amer) Est GFR (Non-Af Amer) POC Glucose (mg/dL) 319 H 267 H 274 H Random Glucose Serum Osmolality Calcium Phosphorus Magnesium Total Bilirubin AST ALT Alkaline Phosphatase Total Protein Albumin Globulin Albumin/Globulin Ratio CSF LDH HSV Source Description HSV I DNA PCR HSV II DNA PCR 10/12/16 10/12/16 10/12/16 14:57 15:59 16:52 WBC RBC Hgb Hct MCV MCH MCHC RDW Plt Count MPV Neut % (Auto) Lymph % (Auto) [place] % (Auto) Eos % (Auto) Baso % (Auto) Neut # Lymph # [place] # Eos # Baso # Neutrophils % (Manual) Band Neutrophils % Lymphocytes % (Manual) Monocytes % (Manual) Metamyelocytes % Toxic Granulation Platelet Estimate Large Platelets Anisocytosis (manual) Puncture Site pCO2 pO2 HCO3 ABG pH ABG Total CO2 ABG O2 Saturation ABG Base Excess ABG Hemoglobin ABG Carboxyhemoglobin POC ABG HHb (Measured) ABG Methemoglobin Nico Test A-a O2 Difference Respiratory Index Hgb O2 Saturation Mechanical Rate FiO2 Tidal Volume PEEP Sodium Potassium Chloride Carbon Dioxide Anion Gap BUN Creatinine Est GFR ( Amer) Est GFR (Non-Af Amer) POC Glucose (mg/dL) 278 H 255 H 302 H Random Glucose Serum Osmolality Calcium Phosphorus Magnesium Total Bilirubin AST ALT Alkaline Phosphatase Total Protein Albumin Globulin Albumin/Globulin Ratio CSF LDH HSV Source Description HSV I DNA PCR HSV II DNA PCR 10/12/16 10/12/16 10/12/16 17:02 17:39 18:53 WBC RBC Hgb Hct MCV MCH MCHC RDW Plt Count MPV Neut % (Auto) Lymph % (Auto) [place] % (Auto) Eos % (Auto) Baso % (Auto) Neut # Lymph # [place] # Eos # Baso # Neutrophils % (Manual) Band Neutrophils % Lymphocytes % (Manual) Monocytes % (Manual) Metamyelocytes % Toxic Granulation Platelet Estimate Large Platelets Anisocytosis (manual) Puncture Site pCO2 pO2 HCO3 ABG pH ABG Total CO2 ABG O2 Saturation ABG Base Excess ABG Hemoglobin ABG Carboxyhemoglobin POC ABG HHb (Measured) ABG Methemoglobin Nico Test A-a O2 Difference Respiratory Index Hgb O2 Saturation Mechanical Rate FiO2 Tidal Volume PEEP Sodium 147 Potassium 3.7 Chloride 122 H Carbon Dioxide 15 L Anion Gap 14 BUN 30 H Creatinine 0.6 L Est GFR ( Amer) > 60 Est GFR (Non-Af Amer) > 60 POC Glucose (mg/dL) 289 H 292 H Random Glucose 277 H Serum Osmolality Calcium 9.9 Phosphorus 2.0 L Magnesium 2.2 Total Bilirubin AST ALT Alkaline Phosphatase Total Protein Albumin Globulin Albumin/Globulin Ratio CSF LDH HSV Source Description HSV I DNA PCR HSV II DNA PCR 10/12/16 10/12/16 10/12/16 19:58 20:38 20:54 WBC RBC Hgb Hct MCV MCH MCHC RDW Plt Count MPV Neut % (Auto) Lymph % (Auto) [place] % (Auto) Eos % (Auto) Baso % (Auto) Neut # Lymph # [place] # Eos # Baso # Neutrophils % (Manual) Band Neutrophils % Lymphocytes % (Manual) Monocytes % (Manual) Metamyelocytes % Toxic Granulation Platelet Estimate Large Platelets Anisocytosis (manual) Puncture Site pCO2 pO2 HCO3 ABG pH ABG Total CO2 ABG O2 Saturation ABG Base Excess ABG Hemoglobin ABG Carboxyhemoglobin POC ABG HHb (Measured) ABG Methemoglobin Nico Test A-a O2 Difference Respiratory Index Hgb O2 Saturation Mechanical Rate FiO2 Tidal Volume PEEP Sodium Potassium Chloride Carbon Dioxide Anion Gap BUN Creatinine Est GFR ( Amer) Est GFR (Non-Af Amer) POC Glucose (mg/dL) 260 H 277 H 275 H Random Glucose Serum Osmolality Calcium Phosphorus Magnesium Total Bilirubin AST ALT Alkaline Phosphatase Total Protein Albumin Globulin Albumin/Globulin Ratio CSF LDH HSV Source Description HSV I DNA PCR HSV II DNA PCR 10/12/16 10/12/16 10/12/16 22:01 22:50 23:39 WBC RBC Hgb Hct MCV MCH MCHC RDW Plt Count MPV Neut % (Auto) Lymph % (Auto) [place] % (Auto) Eos % (Auto) Baso % (Auto) Neut # Lymph # [place] # Eos # Baso # Neutrophils % (Manual) Band Neutrophils % Lymphocytes % (Manual) Monocytes % (Manual) Metamyelocytes % Toxic Granulation Platelet Estimate Large Platelets Anisocytosis (manual) Puncture Site pCO2 pO2 HCO3 ABG pH ABG Total CO2 ABG O2 Saturation ABG Base Excess ABG Hemoglobin ABG Carboxyhemoglobin POC ABG HHb (Measured) ABG Methemoglobin Nico Test A-a O2 Difference Respiratory Index Hgb O2 Saturation Mechanical Rate FiO2 Tidal Volume PEEP Sodium Potassium Chloride Carbon Dioxide Anion Gap BUN Creatinine Est GFR ( Amer) Est GFR (Non-Af Amer) POC Glucose (mg/dL) 254 H 247 H 266 H Random Glucose Serum Osmolality Calcium Phosphorus Magnesium Total Bilirubin AST ALT Alkaline Phosphatase Total Protein Albumin Globulin Albumin/Globulin Ratio CSF LDH HSV Source Description HSV I DNA PCR HSV II DNA PCR 10/13/16 10/13/16 10/13/16 01:22 01:52 02:46 WBC RBC Hgb Hct MCV MCH MCHC RDW Plt Count MPV Neut % (Auto) Lymph % (Auto) [place] % (Auto) Eos % (Auto) Baso % (Auto) Neut # Lymph # [place] # Eos # Baso # Neutrophils % (Manual) Band Neutrophils % Lymphocytes % (Manual) Monocytes % (Manual) Metamyelocytes % Toxic Granulation Platelet Estimate Large Platelets Anisocytosis (manual) Puncture Site pCO2 pO2 HCO3 ABG pH ABG Total CO2 ABG O2 Saturation ABG Base Excess ABG Hemoglobin ABG Carboxyhemoglobin POC ABG HHb (Measured) ABG Methemoglobin Nico Test A-a O2 Difference Respiratory Index Hgb O2 Saturation Mechanical Rate FiO2 Tidal Volume PEEP Sodium Potassium Chloride Carbon Dioxide Anion Gap BUN Creatinine Est GFR ( Amer) Est GFR (Non-Af Amer) POC Glucose (mg/dL) 250 H 267 H 225 H Random Glucose Serum Osmolality Calcium Phosphorus Magnesium Total Bilirubin AST ALT Alkaline Phosphatase Total Protein Albumin Globulin Albumin/Globulin Ratio CSF LDH HSV Source Description HSV I DNA PCR HSV II DNA PCR 10/13/16 10/13/16 10/13/16 05:10 05:15 06:11 WBC RBC Hgb Hct MCV MCH MCHC RDW Plt Count MPV Neut % (Auto) Lymph % (Auto) [place] % (Auto) Eos % (Auto) Baso % (Auto) Neut # Lymph # [place] # Eos # Baso # Neutrophils % (Manual) Band Neutrophils % Lymphocytes % (Manual) Monocytes % (Manual) Metamyelocytes % Toxic Granulation Platelet Estimate Large Platelets Anisocytosis (manual) Puncture Site R rad pCO2 28 L pO2 82 HCO3 20.5 L ABG pH 7.41 ABG Total CO2 18.6 L ABG O2 Saturation 97.6 ABG Base Excess -5.6 L ABG Hemoglobin 12.6 ABG Carboxyhemoglobin 1.3 POC ABG HHb (Measured) 2.3 ABG Methemoglobin 0.8 Nico Test Pos A-a O2 Difference 97.0 Respiratory Index 1.2 Hgb O2 Saturation 95.5 Mechanical Rate 18 FiO2 30.0 Tidal Volume 500 PEEP 5 Sodium Potassium Chloride Carbon Dioxide Anion Gap BUN Creatinine Est GFR ( Amer) Est GFR (Non-Af Amer) POC Glucose (mg/dL) 287 H 226 H Random Glucose Serum Osmolality Calcium Phosphorus Magnesium Total Bilirubin AST ALT Alkaline Phosphatase Total Protein Albumin Globulin Albumin/Globulin Ratio CSF LDH HSV Source Description HSV I DNA PCR HSV II DNA PCR 10/13/16 10/13/16 10/13/16 06:21 06:21 06:58 WBC 18.2 H RBC 4.10 Hgb 11.8 Hct 36.5 MCV 88.9 MCH 28.8 MCHC 32.4 L RDW 13.5 Plt Count 296 MPV 8.3 Neut % (Auto) 85.4 H Lymph % (Auto) 10.1 L [place] % (Auto) 4.4 Eos % (Auto) 0.0 Baso % (Auto) 0.1 Neut # 15.5 H Lymph # 1.8 [place] # 0.8 Eos # 0.0 Baso # 0.0 Neutrophils % (Manual) Band Neutrophils % Lymphocytes % (Manual) Monocytes % (Manual) Metamyelocytes % Toxic Granulation Platelet Estimate Large Platelets Anisocytosis (manual) Puncture Site pCO2 pO2 HCO3 ABG pH ABG Total CO2 ABG O2 Saturation ABG Base Excess ABG Hemoglobin ABG Carboxyhemoglobin POC ABG HHb (Measured) ABG Methemoglobin Nico Test A-a O2 Difference Respiratory Index Hgb O2 Saturation Mechanical Rate FiO2 Tidal Volume PEEP Sodium 148 Potassium 3.6 Chloride 120 H Carbon Dioxide 18 L Anion Gap 14 BUN 29 H Creatinine 0.5 L Est GFR ( Amer) > 60 Est GFR (Non-Af Amer) > 60 POC Glucose (mg/dL) 243 H Random Glucose 238 H Serum Osmolality Calcium 9.7 Phosphorus 2.1 L Magnesium 2.2 Total Bilirubin 0.6 AST 41 H D ALT 31 Alkaline Phosphatase 73 Total Protein 6.2 L Albumin 2.6 L Globulin 3.6 Albumin/Globulin Ratio 0.7 L CSF LDH HSV Source Description HSV I DNA PCR HSV II DNA PCR Fingerstick Blood Sugar Results: 357 Review of Systems - Review of Systems Systems not reviewed;Unavailable: Acuity of Condition
--- NOTE | 2016-10-13 09:20 | RAD ---
HISTORY: Follow-up. Portable study 07:21. COMPARISON: Multiple serial examinations preceding the most recent study: October 12, 2016. October 12, 2016. 07:19. This FINDINGS: LUNGS: No active pulmonary disease. PLEURA: No significant pleural effusion identified, no pneumothorax apparent. CARDIOVASCULAR: Cardiomegaly. No evidence of acute, significant cardiovascular disease. OSSEOUS STRUCTURES: No significant abnormalities. VISUALIZED UPPER ABDOMEN: Normal. OTHER FINDINGS: Stable, satisfactory position ventilatory, vascular and nasogastric apparatus. IMPRESSION: No significant interval change compared to the prior examination(s).
[2016-10-13] MEDS: White Petrolatum/Mineral Oil Ophth Oint(3.5 gm) OU SCH ×2 (10:00→17:36)
[2016-10-13] MEDS: cefTRIAXone 2 GM in Sodium Chloride 0.9% 100 ML IVPB SCH ×2 (10:01→22:20)
[2016-10-13] MEDS: Vancomycin 1 gm/NS 200 ml 1 GM/200 ML BAG IVPB SCH ×2 (10:01→23:37)
[2016-10-13] MEDS: Enoxaparin 40 mg Syringe SC SCH (10:02)
[2016-10-13] MEDS: Pantoprazole 40 mg Susp UD PO SCH (10:03)
--- NOTE | 2016-10-13 16:43 | CP.PCM.PN ---
Subjective - Date & Time of Evaluation Date of Evaluation: 10/13/16 Time of Evaluation: 09:00 - Subjective Subjective: obtunded on vent in icu rx for meningitis in progress Objective - Vital Signs/Intake and Output Vital Signs (last 24 hours): Temp Pulse Resp BP Pulse Ox 98.8 F 82 26 H 166/79 H 95 10/13/16 15:00 10/13/16 15:00 10/13/16 15:00 10/13/16 15:00 10/13/16 15:00 Intake and Output: 10/13/16 10/13/16 06:59 18:59 Intake Total 1759.8 939.7 Output Total 1190 2430 Balance 569.8 -1490.3 - Medications Medications: Current Medications Acetaminophen (Tylenol 650mg/20.3ml Solution Ud) 650 mg NG Q6 PRN PRN Reason: FOR TEMP 101*F OR ABOVE Last Admin: 10/11/16 02:09 Dose: 650 mg Artificial Tears (Lacri-Lube) 1 gm OU BID [facility] Last Admin: 10/13/16 10:00 Dose: 1 gm Dexamethasone (Decadron Inj) 10 mg IVP Q8 [facility] Stop: 10/13/16 19:13 Last Admin: 10/13/16 14:03 Dose: 10 mg Enoxaparin Sodium (Lovenox) 40 mg SC DAILY [facility] Last Admin: 10/13/16 10:02 Dose: 40 mg Furosemide (Lasix) 40 mg IVP DAILY [facility] Last Admin: 10/13/16 10:00 Dose: 40 mg Vancomycin/Sodium Chloride (Vancocin) 1 gm in 200 mls @ 133.333 mls/hr IVPB Q12H [facility] Stop: 10/14/16 10:31 Last Admin: 10/13/16 10:01 Dose: 133.333 mls/hr Ceftriaxone Sodium 2 gm/ (Sodium Chloride) 100 mls @ 100 mls/hr IVPB Q12 [facility] Last Admin: 10/13/16 10:01 Dose: 100 mls/hr Insulin Human Regular 100 unit (/ Sodium Chloride) 100 mls @ 10 mls/hr IV .Q10H PRN; Protocol; 10 UNIT/HR PRN Reason: .TITR Last Titration: 10/13/16 06:10 Dose: 4 unit/hr, 4 mls/hr Propofol (Diprivan) 1,000 mg in 100 mls @ 3.201 mls/hr IV .Q24H PRN; Protocol; 5 MCG/KG/MIN PRN Reason: TITRATE PER MD ORDER Last Admin: 10/13/16 01:00 Dose: 10 mcg/kg/min, 6.402 mls/hr Insulin Glargine (Lantus) 30 unit SC HS [facility] Lactulose (Enulose) 20 gm NG BID [facility] Last Admin: 10/13/16 10:00 Dose: 20 gm Lorazepam (Ativan) 2 mg IVP Q6H PRN PRN Reason: Anxiety Last Admin: 10/10/16 05:30 Dose: 2 mg Metoprolol Tartrate (Lopressor) 25 mg NG BID [facility] Last Admin: 10/13/16 10:00 Dose: 25 mg Pantoprazole Sodium (Protonix Susp) 40 mg PO DAILY [facility] Last Admin: 10/13/16 10:03 Dose: 40 mg - Labs Labs: 10/13/16 06:21 10/13/16 06:21 PT 16.5 SECONDS (9.7-12.2) H 10/09/16 12:53 INR 1.4 10/09/16 12:53 APTT 39 SECONDS (21-34) H 10/09/16 12:53 - Constitutional Appears: Chronically Ill - Head Exam Head Exam: NORMOCEPHALIC - Eye Exam Eye Exam: absent: PERRL Pupil Exam: Fixed - ENT Exam ENT Exam: Mucous Membranes Dry, Normal External Ear Exam - Neck Exam Neck Exam: absent: Lymphadenopathy - Respiratory Exam Respiratory Exam: Decreased Breath Sounds, Rhonchi - Cardiovascular Exam Cardiovascular Exam: REGULAR RHYTHM, +S1, +S2 - GI/Abdominal Exam GI & Abdominal Exam: Distended, Soft. absent: Tenderness - Rectal Exam Rectal Exam: Deferred - Exam Exam: NORMAL INSPECTION - Back Exam Back Exam: absent: CVA tenderness (L), CVA tenderness (R) - Neurological Exam Neurological Exam: Altered Assessment and Plan (1) Meningitis Status: Acute (2) Meningitis Status: Acute (3) Acute confusional state Status: Acute (4) Encephalopathy acute Status: Acute (5) Pneumonia Status: Acute (6) Sepsis Status: Acute - Assessment and Plan (Free Text) Assessment: cont iv rx would check echo consider scott
--- NOTE | 2016-10-13 17:48 | CP.PCM.PN ---
Subjective - Date & Time of Evaluation Date of Evaluation: 10/13/16 Time of Evaluation: 12:00 - Subjective Subjective: Mrs. Caraballo was seen and examined today in the ICU. There was some improvement in her exam that included more eye opening and some movements to pain that were interpreted as withdrawal. There were no acute events overnight. Objective - Vital Signs/Intake and Output Vital Signs (last 24 hours): Temp Pulse Resp BP Pulse Ox 98.8 F 82 26 H 130/63 95 10/13/16 15:00 10/13/16 15:00 10/13/16 15:00 10/13/16 17:36 10/13/16 15:00 Intake and Output: 10/13/16 10/13/16 06:59 18:59 Intake Total 1759.8 939.7 Output Total 1190 2430 Balance 569.8 -1490.3 - Medications Medications: Current Medications Acetaminophen (Tylenol 650mg/20.3ml Solution Ud) 650 mg NG Q6 PRN PRN Reason: FOR TEMP 101*F OR ABOVE Last Admin: 10/11/16 02:09 Dose: 650 mg Artificial Tears (Lacri-Lube) 1 gm OU BID [facility] Last Admin: 10/13/16 17:36 Dose: 1 gm Dexamethasone (Decadron Inj) 10 mg IVP Q8 [facility] Stop: 10/13/16 19:13 Last Admin: 10/13/16 14:03 Dose: 10 mg Enoxaparin Sodium (Lovenox) 40 mg SC DAILY [facility] Last Admin: 10/13/16 10:02 Dose: 40 mg Furosemide (Lasix) 40 mg IVP DAILY [facility] Last Admin: 10/13/16 10:00 Dose: 40 mg Vancomycin/Sodium Chloride (Vancocin) 1 gm in 200 mls @ 133.333 mls/hr IVPB Q12H [facility] Stop: 10/14/16 10:31 Last Admin: 10/13/16 10:01 Dose: 133.333 mls/hr Ceftriaxone Sodium 2 gm/ (Sodium Chloride) 100 mls @ 100 mls/hr IVPB Q12 [facility] Last Admin: 10/13/16 10:01 Dose: 100 mls/hr Insulin Human Regular 100 unit (/ Sodium Chloride) 100 mls @ 10 mls/hr IV .Q10H PRN; Protocol; 10 UNIT/HR PRN Reason: .TITR Last Titration: 10/13/16 06:10 Dose: 4 unit/hr, 4 mls/hr Propofol (Diprivan) 1,000 mg in 100 mls @ 3.201 mls/hr IV .Q24H PRN; Protocol; 5 MCG/KG/MIN PRN Reason: TITRATE PER MD ORDER Last Admin: 10/13/16 01:00 Dose: 10 mcg/kg/min, 6.402 mls/hr Insulin Glargine (Lantus) 30 unit SC HS [facility] Lactulose (Enulose) 20 gm NG BID [facility] Last Admin: 10/13/16 17:36 Dose: 20 gm Lorazepam (Ativan) 2 mg IVP Q6H PRN PRN Reason: Anxiety Last Admin: 10/10/16 05:30 Dose: 2 mg Metoprolol Tartrate (Lopressor) 25 mg NG BID [facility] Last Admin: 10/13/16 17:36 Dose: 25 mg Pantoprazole Sodium (Protonix Susp) 40 mg PO DAILY [facility] Last Admin: 10/13/16 10:03 Dose: 40 mg - Labs Labs: 10/13/16 06:21 10/13/16 06:21 PT 16.5 SECONDS (9.7-12.2) H 10/09/16 12:53 INR 1.4 10/09/16 12:53 APTT 39 SECONDS (21-34) H 10/09/16 12:53 - Neurological Exam Additional comments: Intubated, off sedation. Eyes open spontaneously, grimace to pain. GCS=6T Assessment and Plan (1) Bacterial meningoencephalitis Assessment & Plan: Continue current management per ICU and ID team. The plan was for 4 days of decadron and should D/C automatically after 4 days. Status: Acute
[2016-10-13] MEDS: Insulin Human Regular 100 UNIT in Sodium Chloride 0.9% 99 ML IV PRN (20:38)
--- NOTE | 2016-10-13 21:06 | CT ---
EXAM: CT Head Without Intravenous Contrast CLINICAL HISTORY: 61 years old, female; Pain and signs and symptoms; Other: Hydrocephalus; Headache; Headache not specified; Additional info: Hydrocephalus and meningitis TECHNIQUE: Axial computed tomography images of the head/brain without intravenous contrast. This CT exam was performed using one or more of the following dose reduction techniques: automated exposure control, adjustment of the mA and/or kV according to patient size, and/or use of iterative reconstruction technique. Coronal and sagittal reformatted images were created and reviewed. EXAM DATE/TIME: Exam ordered 10/12/2016 3:52 PM COMPARISON: CT - HEAD W/O CONTRAST 10/09/2016 10:07:28 AM FINDINGS: Artifacts: The study is a limited by motion artifact in the positioning. Brain: Abnormal low density is noted within the kearney radiata and centrum semiovale bilaterally. The sulci appear attenuated. No hemorrhage. No significant white matter disease. No edema. Ventricles: Unremarkable. No ventriculomegaly. Bones/joints: Unremarkable. No acute fracture. Soft tissues: Unremarkable. Sinuses: Mucosal thickening is noted within the sphenoid and ethmoid sinuses extending into the frontal sinus. Mastoid air cells: Unremarkable as visualized. No mastoid effusion. Tubes, lines and devices: The patient has a orogastric tube and an endotracheal tube. IMPRESSION: 1. Study is markedly limited by motion artifact. 2. Abnormal low density changes within the kearney radiata and centrum semiovale bilaterally more conspicuous than on the previous 10/09/2016. Study is concerning for multifocal ischemia. 3. Acute sinusitis involving the ethmoid, sphenoid and frontal sinuses.
[2016-10-13] MEDS: (Lantus) Insulin Glargine, Recombinant SC SCH (22:45)
[2016-10-14 05:59] LABS: ABG ALLEN TEST POS; ABG MECHANICAL RATE 18; ARTERIAL BLOOD HGB O2 SAT 94.2 % (95.0-98.0); ATERIAL BLOOD GAS PEEP 5; CARBOXYHEMOGLOBIN 1.4 % (0.5-1.5); DRAW SITE RR; HHB 3.6 % (0.0-5.0); METHEMOGLOBIN 0.8 % (0.0-3.0)
[2016-10-14 06:46] LABS: CHLORIDE 112 mmol/L (98-107)
[2016-10-14 06:47] LABS: POTASSIUM 3.6 mmol/L (3.6-5.2); SODIUM 145 mmol/L (132-148)
[2016-10-14 06:49] LABS: ALB/GLOB RATIO 0.8 (1.0-2.1); ALKALINE PHOSPHATASE 102 U/L (38-126); ALT/SGPT 41 U/L (9-52); AST/SGOT 40 U/L (14-36); BILIRUBIN,TOTAL 0.7 mg/dL (0.2-1.3); BLOOD UREA NITROGEN 31 mg/dL (7-17); CARBON DIOXIDE 24 mmol/L (22-30); GFR AFRICAN-AMERICAN > 60; GLUCOSE,RANDOM 333 mg/dL (65-105); PHOSPHOROUS 2.2 mg/dL (2.5-4.5); TOTAL PROTEIN 7.1 g/dL (6.3-8.3)
[2016-10-14 06:50] LABS: CALCIUM 10.1 mg/dl (8.6-10.4); MAGNESIUM 2.2 mg/dL (1.6-2.3)
[2016-10-14 06:51] LABS: BASO % 0.2 % (0.0-2.0); EOS % 0.1 % (0.0-4.0); HEMATOCRIT 41.8 % (34.0-47.0); LYMPH # 4.2 K/uL (1.0-4.3); LYMPH % 18.7 % (20.0-40.0); MEAN CELL VOLUME 88.3 fL (81.0-99.0); MEAN CORPUSCULAR HEMOGLOBIN 29.1 pg (27.0-31.0); MEAN CORPUSCULAR HGB CONC 32.9 g/dL (33.0-37.0); MEAN PLATELET VOLUME 8.2 fL (7.2-11.7); MONO # 1.1 K/uL (0.0-0.8); MONO % 5.1 % (0.0-10.0); RED CELL DISTRIBUTION WIDTH 13.4 % (11.5-14.5); WHITE BLOOD COUNT 22.3 K/uL (4.8-10.8)
--- NOTE | 2016-10-14 07:32 | CP.CCUPN ---
CCU Subjective - Physician Review Subjective (Free Text): no change noted Afeb VSS Gen: minimaly responsive on low dose propofol gtt HEENT: Pupils dilated; sluggish. L eye erythematous. ETT/NGT Neck: Supple COR: S1, S2, RRR Resp: coarse rhonchi b/l ABD: Soft, nt/nd, BS +ve Ext: UE edema B/L Neuro: opens eyes to noxious. B/L LE brisk withdrawal. no response from UE to noxious stimuli. Meds / Labs / Imaging reviewed independently as noted below. A/P: 61M with severe sepsis/MOSF likely 2/2 meningitis (most likely S. pneumo) ; s. pneumo bacteremia and poss pna; acute hypoxic resp failure Neuro: neuro f/u noted; maintain Na 145-150. check daily serum Osm. MRI when feasible. Resp: wean vent as tolerated; f/u ABG/CXR -- pt will requrie trach/peg for further wean given poor neuro exam; will need family discussion Cards: hemodynamically stable; f/u rpt echo GI: TF; GI PPx Renal: UOP adequate; replete lytes; continue diuretics x1 more day ID: on rocephin and vanc; f/u rpt echo; rpt blood cx negative so far; high dose steroids -- off today (got 4 days) Endo:SQ insulin started and increase as needed. Heme: SCDs; Hep sq dvt ppx prognosis guarded Rj Burrell MD 10/14/16 13:45 CCU Objective - Vital Signs / Intake & Output Vital Signs (Last 4 hours): Vital Signs Temp Pulse Resp BP Pulse Ox 10/14/16 06:05 67 18 128/64 10/14/16 06:00 69 17 95 10/14/16 05:06 81 22 129/81 92 L 10/14/16 05:00 89 29 H 96 10/14/16 04:06 64 18 132/63 95 10/14/16 04:00 98.0 F 64 19 95 Intake and Output (Last 8hrs): Intake & Output 10/13/16 10/14/16 10/14/16 22:59 06:59 14:59 Intake Total 604 536.3 Output Total 855 1600 Balance -251 -1063.7 Intake: IV 86 8 Intake, IV Amount 138 208.3 Right Jug TLC Distal 38 8 Right Jug TLC Medial 100 200.3 Tube Feeding 320 320 Other 60 Output: Urine 855 1600 Urethral ([place]) 855 1600 - Medications Active Medications: Active Medications Generic Name Dose Route Start Last Admin Trade Name Freq PRN Reason Stop Dose Admin Acetaminophen 650 mg 10/09/16 00:41 10/11/16 02:09 Tylenol 650mg/20.3ml Solution Ud NG 650 mg Q6 PRN Administration FOR TEMP 101*F OR ABOVE Artificial Tears 1 gm 10/11/16 10:30 10/13/16 17:36 Lacri-Lube OU 1 gm BID MINI Administration Enoxaparin Sodium 40 mg 10/09/16 17:30 10/13/16 10:02 Lovenox SC 40 mg DAILY MINI Administration Furosemide 40 mg 10/13/16 10:00 10/13/16 10:00 Lasix IVP 40 mg DAILY MIIN Administration Vancomycin/Sodium Chloride 1 gm in 200 mls @ 133.333 mls/hr 10/09/16 10:30 23:37 Vancocin IVPB 10/14/16 10:31 133.333 mls/hr Q12H MINI Administration Ceftriaxone Sodium 2 gm/ 100 mls @ 100 mls/hr 10/10/16 22:00 10/13/16 22:20 Sodium Chloride IVPB 100 mls/hr Q12 MINI Administration Insulin Human Regular 100 unit 100 mls @ 10 mls/hr 10/11/16 12:00 10/14/16 00 :43 / Sodium Chloride IV 0 unit/hr .Q10H PRN 0 mls/hr .TITR Titration Protocol 10 UNIT/HR Propofol 1,000 mg in 100 mls @ 3.201 mls/hr 10/12/16 00:25 10/13/16 01:00 Diprivan IV 10 mcg/kg/min .Q24H PRN 6.402 mls/hr TITRATE PER MD ORDER Administration Protocol 5 MCG/KG/MIN Insulin Glargine 30 unit 10/13/16 07:22 10/13/16 22:45 Lantus SC 30 units HS MINI Administration Lactulose 20 gm 10/12/16 18:00 10/13/16 17:36 Enulose NG 20 gm BID MINI Administration Lorazepam 2 mg 10/09/16 21:06 10/10/16 05:30 Ativan IVP 2 mg Q6H PRN Administration Anxiety Metoprolol Tartrate 25 mg 10/12/16 18:00 10/13/16 17:36 Lopressor NG 25 mg BID MINI Administration Pantoprazole Sodium 40 mg 10/12/16 10:00 10/13/16 10:03 Protonix Susp PO 40 mg DAILY MINI Administration - Patient Studies Lab Studies: Microbiology Studies 10/11/16 08:30 Blood Culture - Preliminary Blood-Venous NO GROWTH AFTER 48 HOURS 10/11/16 08:00 Blood Culture - Preliminary Blood-Venous NO GROWTH AFTER 48 HOURS 10/10/16 10:57 Gram Stain - Final Cerebral Spinal Fluid CSF Culture - Preliminary NO GROWTH AFTER 3 DAYS Lab Studies 10/14/16 10/14/16 10/14/16 Range/Units 06:25 06:25 06:25 WBC 22.3 H (4.8-10.8) K/uL RBC 4.73 (3.80-5.20) Mil/uL Hgb 13.8 D (11.0-16.0) g/dL Hct 41.8 (34.0-47.0) % MCV 88.3 (81.0-99.0) fL MCH 29.1 (27.0-31.0) pg MCHC 32.9 L (33.0-37.0) g/dL RDW 13.4 (11.5-14.5) % Plt Count 359 (130-400) K/uL MPV 8.2 (7.2-11.7) fL Neut % (Auto) 75.9 H (50.0-75.0) % Lymph % (Auto) 18.7 L (20.0-40.0) % Karnes % (Auto) 5.1 (0.0-10.0) % Eos % (Auto) 0.1 (0.0-4.0) % Baso % (Auto) 0.2 (0.0-2.0) % Neut # 17.0 H (1.8-7.0) K/uL Lymph # 4.2 (1.0-4.3) K/uL Karnes # 1.1 H (0.0-0.8) K/uL Eos # 0.0 (0.0-0.7) K/uL Baso # 0.0 (0.0-0.2) K/uL Puncture Site pCO2 (35-45) mm/Hg pO2 (80-100) mm/Hg HCO3 (21-28) mmol/L ABG pH (7.35-7.45) ABG Total CO2 (22-28) mmol/L ABG O2 Saturation (95-98) % ABG Base Excess (-2.0-3.0) mmol/L ABG Hemoglobin (11.7-17.4) g/dL ABG Carboxyhemoglobin (0.5-1.5) % POC ABG HHb (Measured) (0.0-5.0) % ABG Methemoglobin (0.0-3.0) % Nico Test A-a O2 Difference mm/Hg Respiratory Index Hgb O2 Saturation (95.0-98.0) % Mechanical Rate FiO2 % Tidal Volume PEEP Sodium 145 (132-148) mmol/L Potassium 3.6 (3.6-5.2) mmol/L Chloride 112 H (98-107) mmol/L Carbon Dioxide 24 (22-30) mmol/L Anion Gap 13 (10-20) BUN 31 H (7-17) mg/dL Creatinine 0.6 L (0.7-1.2) MG/DL Est GFR ( Amer) > 60 Est GFR (Non-Af Amer) > 60 POC Glucose (mg/dL) (65-110) mg/dL Random Glucose 333 H (65-105) mg/dL Serum Osmolality (272-300) mosm/kg Calcium 10.1 (8.6-10.4) mg/dl Phosphorus 2.2 L (2.5-4.5) mg/dL Magnesium 2.2 (1.6-2.3) mg/dL Total Bilirubin 0.7 (0.2-1.3) mg/dL AST 40 H (14-36) U/L ALT 41 (9-52) U/L Alkaline Phosphatase 102 (38-126) U/L Total Protein 7.1 (6.3-8.3) g/dL Albumin 3.1 L (3.5-5.0) g/dL Globulin 4.0 H (2.2-3.9) gm/dL Albumin/Globulin Ratio 0.8 L (1.0-2.1) Vancomycin Trough 13.5 H (5.0-10.0) ug/mL 10/14/16 10/14/16 10/13/16 Range/Units 05:34 00:35 23:40 WBC (4.8-10.8) K/uL RBC (3.80-5.20) Mil/uL Hgb (11.0-16.0) g/dL Hct (34.0-47.0) % MCV (81.0-99.0) fL MCH (27.0-31.0) pg MCHC (33.0-37.0) g/dL RDW (11.5-14.5) % Plt Count (130-400) K/uL MPV (7.2-11.7) fL Neut % (Auto) (50.0-75.0) % Lymph % (Auto) (20.0-40.0) % Karnes % (Auto) (0.0-10.0) % Eos % (Auto) (0.0-4.0) % Baso % (Auto) (0.0-2.0) % Neut # (1.8-7.0) K/uL Lymph # (1.0-4.3) K/uL Karnes # (0.0-0.8) K/uL Eos # (0.0-0.7) K/uL Baso # (0.0-0.2) K/uL Puncture Site Rr pCO2 33 L (35-45) mm/Hg pO2 71 L (80-100) mm/Hg HCO3 25.1 (21-28) mmol/L ABG pH 7.46 H (7.35-7.45) ABG Total CO2 24.5 (22-28) mmol/L ABG O2 Saturation 96.3 (95-98) % ABG Base Excess 0.3 (-2.0-3.0) mmol/L ABG Hemoglobin 13.5 (11.7-17.4) g/dL ABG Carboxyhemoglobin 1.4 (0.5-1.5) % POC ABG HHb (Measured) 3.6 (0.0-5.0) % ABG Methemoglobin 0.8 (0.0-3.0) % Nico Test Pos A-a O2 Difference 102.0 mm/Hg Respiratory Index 1.4 Hgb O2 Saturation 94.2 L (95.0-98.0) % Mechanical Rate 18 FiO2 30.0 % Tidal Volume 500 PEEP 5 Sodium (132-148) mmol/L Potassium (3.6-5.2) mmol/L Chloride (98-107) mmol/L Carbon Dioxide (22-30) mmol/L Anion Gap (10-20) BUN (7-17) mg/dL Creatinine (0.7-1.2) MG/DL Est GFR ( Amer) Est GFR (Non-Af Amer) POC Glucose (mg/dL) 308 H 319 H (65-110) mg/dL Random Glucose (65-105) mg/dL Serum Osmolality (272-300) mosm/kg Calcium (8.6-10.4) mg/dl Phosphorus (2.5-4.5) mg/dL Magnesium (1.6-2.3) mg/dL Total Bilirubin (0.2-1.3) mg/dL AST (14-36) U/L ALT (9-52) U/L Alkaline Phosphatase (38-126) U/L Total Protein (6.3-8.3) g/dL Albumin (3.5-5.0) g/dL Globulin (2.2-3.9) gm/dL Albumin/Globulin Ratio (1.0-2.1) Vancomycin Trough (5.0-10.0) ug/mL 10/13/16 10/13/16 10/13/16 Range/Units 22:18 19:58 18:56 WBC (4.8-10.8) K/uL RBC (3.80-5.20) Mil/uL Hgb (11.0-16.0) g/dL Hct (34.0-47.0) % MCV (81.0-99.0) fL MCH (27.0-31.0) pg MCHC (33.0-37.0) g/dL RDW (11.5-14.5) % Plt Count (130-400) K/uL MPV (7.2-11.7) fL Neut % (Auto) (50.0-75.0) % Lymph % (Auto) (20.0-40.0) % Karnes % (Auto) (0.0-10.0) % Eos % (Auto) (0.0-4.0) % Baso % (Auto) (0.0-2.0) % Neut # (1.8-7.0) K/uL Lymph # (1.0-4.3) K/uL Karnes # (0.0-0.8) K/uL Eos # (0.0-0.7) K/uL Baso # (0.0-0.2) K/uL Puncture Site pCO2 (35-45) mm/Hg pO2 (80-100) mm/Hg HCO3 (21-28) mmol/L ABG pH (7.35-7.45) ABG Total CO2 (22-28) mmol/L ABG O2 Saturation (95-98) % ABG Base Excess (-2.0-3.0) mmol/L ABG Hemoglobin (11.7-17.4) g/dL ABG Carboxyhemoglobin (0.5-1.5) % POC ABG HHb (Measured) (0.0-5.0) % ABG Methemoglobin (0.0-3.0) % Nico Test A-a O2 Difference mm/Hg Respiratory Index Hgb O2 Saturation (95.0-98.0) % Mechanical Rate FiO2 % Tidal Volume PEEP Sodium (132-148) mmol/L Potassium (3.6-5.2) mmol/L Chloride (98-107) mmol/L Carbon Dioxide (22-30) mmol/L Anion Gap (10-20) BUN (7-17) mg/dL Creatinine (0.7-1.2) MG/DL Est GFR ( Amer) Est GFR (Non-Af Amer) POC Glucose (mg/dL) 233 H 265 H 273 H (65-110) mg/dL Random Glucose (65-105) mg/dL Serum Osmolality (272-300) mosm/kg Calcium (8.6-10.4) mg/dl Phosphorus (2.5-4.5) mg/dL Magnesium (1.6-2.3) mg/dL Total Bilirubin (0.2-1.3) mg/dL AST (14-36) U/L ALT (9-52) U/L Alkaline Phosphatase (38-126) U/L Total Protein (6.3-8.3) g/dL Albumin (3.5-5.0) g/dL Globulin (2.2-3.9) gm/dL Albumin/Globulin Ratio (1.0-2.1) Vancomycin Trough (5.0-10.0) ug/mL 10/13/16 10/13/16 10/13/16 Range/Units 17:58 16:59 16:17 WBC (4.8-10.8) K/uL RBC (3.80-5.20) Mil/uL Hgb (11.0-16.0) g/dL Hct (34.0-47.0) % MCV (81.0-99.0) fL MCH (27.0-31.0) pg MCHC (33.0-37.0) g/dL RDW (11.5-14.5) % Plt Count (130-400) K/uL MPV (7.2-11.7) fL Neut % (Auto) (50.0-75.0) % Lymph % (Auto) (20.0-40.0) % Karnes % (Auto) (0.0-10.0) % Eos % (Auto) (0.0-4.0) % Baso % (Auto) (0.0-2.0) % Neut # (1.8-7.0) K/uL Lymph # (1.0-4.3) K/uL Karnes # (0.0-0.8) K/uL Eos # (0.0-0.7) K/uL Baso # (0.0-0.2) K/uL Puncture Site pCO2 (35-45) mm/Hg pO2 (80-100) mm/Hg HCO3 (21-28) mmol/L ABG pH (7.35-7.45) ABG Total CO2 (22-28) mmol/L ABG O2 Saturation (95-98) % ABG Base Excess (-2.0-3.0) mmol/L ABG Hemoglobin (11.7-17.4) g/dL ABG Carboxyhemoglobin (0.5-1.5) % POC ABG HHb (Measured) (0.0-5.0) % ABG Methemoglobin (0.0-3.0) % Nico Test A-a O2 Difference mm/Hg Respiratory Index Hgb O2 Saturation (95.0-98.0) % Mechanical Rate FiO2 % Tidal Volume PEEP Sodium (132-148) mmol/L Potassium (3.6-5.2) mmol/L Chloride (98-107) mmol/L Carbon Dioxide (22-30) mmol/L Anion Gap (10-20) BUN (7-17) mg/dL Creatinine (0.7-1.2) MG/DL Est GFR ( Amer) Est GFR (Non-Af Amer) POC Glucose (mg/dL) 265 H 229 H 213 H (65-110) mg/dL Random Glucose (65-105) mg/dL Serum Osmolality (272-300) mosm/kg Calcium (8.6-10.4) mg/dl Phosphorus (2.5-4.5) mg/dL Magnesium (1.6-2.3) mg/dL Total Bilirubin (0.2-1.3) mg/dL AST (14-36) U/L ALT (9-52) U/L Alkaline Phosphatase (38-126) U/L Total Protein (6.3-8.3) g/dL Albumin (3.5-5.0) g/dL Globulin (2.2-3.9) gm/dL Albumin/Globulin Ratio (1.0-2.1) Vancomycin Trough (5.0-10.0) ug/mL 10/13/16 10/13/16 10/13/16 Range/Units 14:55 14:05 12:54 WBC (4.8-10.8) K/uL RBC (3.80-5.20) Mil/uL Hgb (11.0-16.0) g/dL Hct (34.0-47.0) % MCV (81.0-99.0) fL MCH (27.0-31.0) pg MCHC (33.0-37.0) g/dL RDW (11.5-14.5) % Plt Count (130-400) K/uL MPV (7.2-11.7) fL Neut % (Auto) (50.0-75.0) % Lymph % (Auto) (20.0-40.0) % Karnes % (Auto) (0.0-10.0) % Eos % (Auto) (0.0-4.0) % Baso % (Auto) (0.0-2.0) % Neut # (1.8-7.0) K/uL Lymph # (1.0-4.3) K/uL Karnes # (0.0-0.8) K/uL Eos # (0.0-0.7) K/uL Baso # (0.0-0.2) K/uL Puncture Site pCO2 (35-45) mm/Hg pO2 (80-100) mm/Hg HCO3 (21-28) mmol/L ABG pH (7.35-7.45) ABG Total CO2 (22-28) mmol/L ABG O2 Saturation (95-98) % ABG Base Excess (-2.0-3.0) mmol/L ABG Hemoglobin (11.7-17.4) g/dL ABG Carboxyhemoglobin (0.5-1.5) % POC ABG HHb (Measured) (0.0-5.0) % ABG Methemoglobin (0.0-3.0) % Nico Test A-a O2 Difference mm/Hg Respiratory Index Hgb O2 Saturation (95.0-98.0) % Mechanical Rate FiO2 % Tidal Volume PEEP Sodium (132-148) mmol/L Potassium (3.6-5.2) mmol/L Chloride (98-107) mmol/L Carbon Dioxide (22-30) mmol/L Anion Gap (10-20) BUN (7-17) mg/dL Creatinine (0.7-1.2) MG/DL Est GFR ( Amer) Est GFR (Non-Af Amer) POC Glucose (mg/dL) 234 H 264 H 271 H (65-110) mg/dL Random Glucose (65-105) mg/dL Serum Osmolality (272-300) mosm/kg Calcium (8.6-10.4) mg/dl Phosphorus (2.5-4.5) mg/dL Magnesium (1.6-2.3) mg/dL Total Bilirubin (0.2-1.3) mg/dL AST (14-36) U/L ALT (9-52) U/L Alkaline Phosphatase (38-126) U/L Total Protein (6.3-8.3) g/dL Albumin (3.5-5.0) g/dL Globulin (2.2-3.9) gm/dL Albumin/Globulin Ratio (1.0-2.1) Vancomycin Trough (5.0-10.0) ug/mL 10/13/16 10/13/16 10/13/16 Range/Units 12:10 10:59 09:57 WBC (4.8-10.8) K/uL RBC (3.80-5.20) Mil/uL Hgb (11.0-16.0) g/dL Hct (34.0-47.0) % MCV (81.0-99.0) fL MCH (27.0-31.0) pg MCHC (33.0-37.0) g/dL RDW (11.5-14.5) % Plt Count (130-400) K/uL MPV (7.2-11.7) fL Neut % (Auto) (50.0-75.0) % Lymph % (Auto) (20.0-40.0) % Karnes % (Auto) (0.0-10.0) % Eos % (Auto) (0.0-4.0) % Baso % (Auto) (0.0-2.0) % Neut # (1.8-7.0) K/uL Lymph # (1.0-4.3) K/uL Karnes # (0.0-0.8) K/uL Eos # (0.0-0.7) K/uL Baso # (0.0-0.2) K/uL Puncture Site pCO2 (35-45) mm/Hg pO2 (80-100) mm/Hg HCO3 (21-28) mmol/L ABG pH (7.35-7.45) ABG Total CO2 (22-28) mmol/L ABG O2 Saturation (95-98) % ABG Base Excess (-2.0-3.0) mmol/L ABG Hemoglobin (11.7-17.4) g/dL ABG Carboxyhemoglobin (0.5-1.5) % POC ABG HHb (Measured) (0.0-5.0) % ABG Methemoglobin (0.0-3.0) % Nico Test A-a O2 Difference mm/Hg Respiratory Index Hgb O2 Saturation (95.0-98.0) % Mechanical Rate FiO2 % Tidal Volume PEEP Sodium (132-148) mmol/L Potassium (3.6-5.2) mmol/L Chloride (98-107) mmol/L Carbon Dioxide (22-30) mmol/L Anion Gap (10-20) BUN (7-17) mg/dL Creatinine (0.7-1.2) MG/DL Est GFR ( Amer) Est GFR (Non-Af Amer) POC Glucose (mg/dL) 259 H 285 H 261 H (65-110) mg/dL Random Glucose (65-105) mg/dL Serum Osmolality (272-300) mosm/kg Calcium (8.6-10.4) mg/dl Phosphorus (2.5-4.5) mg/dL Magnesium (1.6-2.3) mg/dL Total Bilirubin (0.2-1.3) mg/dL AST (14-36) U/L ALT (9-52) U/L Alkaline Phosphatase (38-126) U/L Total Protein (6.3-8.3) g/dL Albumin (3.5-5.0) g/dL Globulin (2.2-3.9) gm/dL Albumin/Globulin Ratio (1.0-2.1) Vancomycin Trough (5.0-10.0) ug/mL 10/13/16 10/13/16 10/13/16 Range/Units 09:03 07:56 07:09 WBC (4.8-10.8) K/uL RBC (3.80-5.20) Mil/uL Hgb (11.0-16.0) g/dL Hct (34.0-47.0) % MCV (81.0-99.0) fL MCH (27.0-31.0) pg MCHC (33.0-37.0) g/dL RDW (11.5-14.5) % Plt Count (130-400) K/uL MPV (7.2-11.7) fL Neut % (Auto) (50.0-75.0) % Lymph % (Auto) (20.0-40.0) % Karnes % (Auto) (0.0-10.0) % Eos % (Auto) (0.0-4.0) % Baso % (Auto) (0.0-2.0) % Neut # (1.8-7.0) K/uL Lymph # (1.0-4.3) K/uL Karnes # (0.0-0.8) K/uL Eos # (0.0-0.7) K/uL Baso # (0.0-0.2) K/uL Puncture Site pCO2 (35-45) mm/Hg pO2 (80-100) mm/Hg HCO3 (21-28) mmol/L ABG pH (7.35-7.45) ABG Total CO2 (22-28) mmol/L ABG O2 Saturation (95-98) % ABG Base Excess (-2.0-3.0) mmol/L ABG Hemoglobin (11.7-17.4) g/dL ABG Carboxyhemoglobin (0.5-1.5) % POC ABG HHb (Measured) (0.0-5.0) % ABG Methemoglobin (0.0-3.0) % Nico Test A-a O2 Difference mm/Hg Respiratory Index Hgb O2 Saturation (95.0-98.0) % Mechanical Rate FiO2 % Tidal Volume PEEP Sodium (132-148) mmol/L Potassium (3.6-5.2) mmol/L Chloride (98-107) mmol/L Carbon Dioxide (22-30) mmol/L Anion Gap (10-20) BUN (7-17) mg/dL Creatinine (0.7-1.2) MG/DL Est GFR ( Amer) Est GFR (Non-Af Amer) POC Glucose (mg/dL) 248 H 250 H (65-110) mg/dL Random Glucose (65-105) mg/dL Serum Osmolality 333 H (272-300) mosm/kg Calcium (8.6-10.4) mg/dl Phosphorus (2.5-4.5) mg/dL Magnesium (1.6-2.3) mg/dL Total Bilirubin (0.2-1.3) mg/dL AST (14-36) U/L ALT (9-52) U/L Alkaline Phosphatase (38-126) U/L Total Protein (6.3-8.3) g/dL Albumin (3.5-5.0) g/dL Globulin (2.2-3.9) gm/dL Albumin/Globulin Ratio (1.0-2.1) Vancomycin Trough (5.0-10.0) ug/mL Laboratory Results - last 24 hr 10/13/16 10/13/16 10/13/16 07:09 07:56 09:03 WBC RBC Hgb Hct MCV MCH MCHC RDW Plt Count MPV Neut % (Auto) Lymph % (Auto) Karnes % (Auto) Eos % (Auto) Baso % (Auto) Neut # Lymph # Karnes # Eos # Baso # Puncture Site pCO2 pO2 HCO3 ABG pH ABG Total CO2 ABG O2 Saturation ABG Base Excess ABG Hemoglobin ABG Carboxyhemoglobin POC ABG HHb (Measured) ABG Methemoglobin Nico Test A-a O2 Difference Respiratory Index Hgb O2 Saturation Mechanical Rate FiO2 Tidal Volume PEEP Sodium Potassium Chloride Carbon Dioxide Anion Gap BUN Creatinine Est GFR ( Amer) Est GFR (Non-Af Amer) POC Glucose (mg/dL) 250 H 248 H Random Glucose Serum Osmolality 333 H Calcium Phosphorus Magnesium Total Bilirubin AST ALT Alkaline Phosphatase Total Protein Albumin Globulin Albumin/Globulin Ratio Vancomycin Trough 10/13/16 10/13/16 10/13/16 09:57 10:59 12:10 WBC RBC Hgb Hct MCV MCH MCHC RDW Plt Count MPV Neut % (Auto) Lymph % (Auto) Karnes % (Auto) Eos % (Auto) Baso % (Auto) Neut # Lymph # Karnes # Eos # Baso # Puncture Site pCO2 pO2 HCO3 ABG pH ABG Total CO2 ABG O2 Saturation ABG Base Excess ABG Hemoglobin ABG Carboxyhemoglobin POC ABG HHb (Measured) ABG Methemoglobin Nico Test A-a O2 Difference Respiratory Index Hgb O2 Saturation Mechanical Rate FiO2 Tidal Volume PEEP Sodium Potassium Chloride Carbon Dioxide Anion Gap BUN Creatinine Est GFR ( Amer) Est GFR (Non-Af Amer) POC Glucose (mg/dL) 261 H 285 H 259 H Random Glucose Serum Osmolality Calcium Phosphorus Magnesium Total Bilirubin AST ALT Alkaline Phosphatase Total Protein Albumin Globulin Albumin/Globulin Ratio Vancomycin Trough 10/13/16 10/13/16 10/13/16 12:54 14:05 14:55 WBC RBC Hgb Hct MCV MCH MCHC RDW Plt Count MPV Neut % (Auto) Lymph % (Auto) Karnes % (Auto) Eos % (Auto) Baso % (Auto) Neut # Lymph # Karnes # Eos # Baso # Puncture Site pCO2 pO2 HCO3 ABG pH ABG Total CO2 ABG O2 Saturation ABG Base Excess ABG Hemoglobin ABG Carboxyhemoglobin POC ABG HHb (Measured) ABG Methemoglobin Nico Test A-a O2 Difference Respiratory Index Hgb O2 Saturation Mechanical Rate FiO2 Tidal Volume PEEP Sodium Potassium Chloride Carbon Dioxide Anion Gap BUN Creatinine Est GFR ( Amer) Est GFR (Non-Af Amer) POC Glucose (mg/dL) 271 H 264 H 234 H Random Glucose Serum Osmolality Calcium Phosphorus Magnesium Total Bilirubin AST ALT Alkaline Phosphatase Total Protein Albumin Globulin Albumin/Globulin Ratio Vancomycin Trough 10/13/16 10/13/16 10/13/16 16:17 16:59 17:58 WBC RBC Hgb Hct MCV MCH MCHC RDW Plt Count MPV Neut % (Auto) Lymph % (Auto) Karn[place] % (Auto) Eos % (Auto) Baso % (Auto) Neut # Lymph # Karnes # Eos # Baso # Puncture Site pCO2 pO2 HCO3 ABG pH ABG Total CO2 ABG O2 Saturation ABG Base Excess ABG Hemoglobin ABG Carboxyhemoglobin POC ABG HHb (Measured) ABG Methemoglobin Nico Test A-a O2 Difference Respiratory Index Hgb O2 Saturation Mechanical Rate FiO2 Tidal Volume PEEP Sodium Potassium Chloride Carbon Dioxide Anion Gap BUN Creatinine Est GFR ( Amer) Est GFR (Non-Af Amer) POC Glucose (mg/dL) 213 H 229 H 265 H Random Glucose Serum Osmolality Calcium Phosphorus Magnesium Total Bilirubin AST ALT Alkaline Phosphatase Total Protein Albumin Globulin Albumin/Globulin Ratio Vancomycin Trough 10/13/16 10/13/16 10/13/16 18:56 19:58 22:18 WBC RBC Hgb Hct MCV MCH MCHC RDW Plt Count MPV Neut % (Auto) Lymph % (Auto) Karnes % (Auto) Eos % (Auto) Baso % (Auto) Neut # Lymph # Karn[place] # Eos # Baso # Puncture Site pCO2 pO2 HCO3 ABG pH ABG Total CO2 ABG O2 Saturation ABG Base Excess ABG Hemoglobin ABG Carboxyhemoglobin POC ABG HHb (Measured) ABG Methemoglobin Nico Test A-a O2 Difference Respiratory Index Hgb O2 Saturation Mechanical Rate FiO2 Tidal Volume PEEP Sodium Potassium Chloride Carbon Dioxide Anion Gap BUN Creatinine Est GFR ( Amer) Est GFR (Non-Af Amer) POC Glucose (mg/dL) 273 H 265 H 233 H Random Glucose Serum Osmolality Calcium Phosphorus Magnesium Total Bilirubin AST ALT Alkaline Phosphatase Total Protein Albumin Globulin Albumin/Globulin Ratio Vancomycin Trough 10/13/16 10/14/16 10/14/16 23:40 00:35 05:34 WBC RBC Hgb Hct MCV MCH MCHC RDW Plt Count MPV Neut % (Auto) Lymph % (Auto) Karnes % (Auto) Eos % (Auto) Baso % (Auto) Neut # Lymph # [place] # Eos # Baso # Puncture Site Rr pCO2 33 L pO2 71 L HCO3 25.1 ABG pH 7.46 H ABG Total CO2 24.5 ABG O2 Saturation 96.3 ABG Base Excess 0.3 ABG Hemoglobin 13.5 ABG Carboxyhemoglobin 1.4 POC ABG HHb (Measured) 3.6 ABG Methemoglobin 0.8 Nico Test Pos A-a O2 Difference 102.0 Respiratory Index 1.4 Hgb O2 Saturation 94.2 L Mechanical Rate 18 FiO2 30.0 Tidal Volume 500 PEEP 5 Sodium Potassium Chloride Carbon Dioxide Anion Gap BUN Creatinine Est GFR ( Amer) Est GFR (Non-Af Amer) POC Glucose (mg/dL) 319 H 308 H Random Glucose Serum Osmolality Calcium Phosphorus Magnesium Total Bilirubin AST ALT Alkaline Phosphatase Total Protein Albumin Globulin Albumin/Globulin Ratio Vancomycin Trough 10/14/16 10/14/16 10/14/16 06:25 06:25 06:25 WBC 22.3 H RBC 4.73 Hgb 13.8 D Hct 41.8 MCV 88.3 MCH 29.1 MCHC 32.9 L RDW 13.4 Plt Count 359 MPV 8.2 Neut % (Auto) 75.9 H Lymph % (Auto) 18.7 L Karnes % (Auto) 5.1 Eos % (Auto) 0.1 Baso % (Auto) 0.2 Neut # 17.0 H Lymph # 4.2 Karnes # 1.1 H Eos # 0.0 Baso # 0.0 Puncture Site pCO2 pO2 HCO3 ABG pH ABG Total CO2 ABG O2 Saturation ABG Base Excess ABG Hemoglobin ABG Carboxyhemoglobin POC ABG HHb (Measured) ABG Methemoglobin Nico Test A-a O2 Difference Respiratory Index Hgb O2 Saturation Mechanical Rate FiO2 Tidal Volume PEEP Sodium 145 Potassium 3.6 Chloride 112 H Carbon Dioxide 24 Anion Gap 13 BUN 31 H Creatinine 0.6 L Est GFR ( Amer) > 60 Est GFR (Non-Af Amer) > 60 POC Glucose (mg/dL) Random Glucose 333 H Serum Osmolality Calcium 10.1 Phosphorus 2.2 L Magnesium 2.2 Total Bilirubin 0.7 AST 40 H ALT 41 Alkaline Phosphatase 102 Total Protein 7.1 Albumin 3.1 L Globulin 4.0 H Albumin/Globulin Ratio 0.8 L Vancomycin Trough 13.5 H Fingerstick Blood Sugar Results: 265 Review of Systems - Review of Systems Systems not reviewed;Unavailable: Acuity of Condition
[2016-10-14] MEDS: Propofol 10 mg/ml 1,000 MG/100 ML VIAL IV PRN ×2 (08:20→21:38)
[2016-10-14] MEDS: White Petrolatum/Mineral Oil Ophth Oint(3.5 gm) OU SCH ×2 (10:05→18:28)
[2016-10-14] MEDS: Enoxaparin 40 mg Syringe SC SCH (10:06)
[2016-10-14] MEDS: cefTRIAXone 2 GM in Sodium Chloride 0.9% 100 ML IVPB SCH ×2 (10:06→21:03)
[2016-10-14] MEDS: Pantoprazole 40 mg Susp UD PO SCH (10:06)
[2016-10-14] MEDS: Vancomycin 1 gm/NS 200 ml 1 GM/200 ML BAG IVPB SCH (10:09)
[2016-10-14] MEDS: (Novolin R) Insulin Human Regular 100 units/ml vial SC SCH ×3 (12:01→20:58)
--- NOTE | 2016-10-14 13:50 | CP.PCM.PN ---
Subjective - Date & Time of Evaluation Date of Evaluation: 10/14/16 Time of Evaluation: 09:00 - Subjective Subjective: events noted cont iv rx Objective - Vital Signs/Intake and Output Vital Signs (last 24 hours): Temp Pulse Resp BP Pulse Ox 100.3 F H 74 22 145/69 94 L 10/14/16 12:00 10/14/16 12:00 10/14/16 12:00 10/14/16 12:05 10/14/16 12:00 Intake and Output: 10/14/16 10/14/16 06:59 18:59 Intake Total 902.3 597.0 Output Total 1999 1475 Balance -1097.7 -878.0 - Medications Medications: Current Medications Acetaminophen (Tylenol 650mg/20.3ml Solution Ud) 650 mg NG Q6 PRN PRN Reason: FOR TEMP 101*F OR ABOVE Last Admin: 10/11/16 02:09 Dose: 650 mg Artificial Tears (Lacri-Lube) 1 gm OU BID [facility] Last Admin: 10/14/16 10:05 Dose: 1 gm Enoxaparin Sodium (Lovenox) 40 mg SC DAILY [facility] Last Admin: 10/14/16 10:06 Dose: 40 mg Furosemide (Lasix) 40 mg IVP DAILY [facility] Last Admin: 10/14/16 10:06 Dose: 40 mg Ceftriaxone Sodium 2 gm/ (Sodium Chloride) 100 mls @ 100 mls/hr IVPB Q12 [facility] Last Admin: 10/14/16 10:06 Dose: 100 mls/hr Insulin Human Regular 100 unit (/ Sodium Chloride) 100 mls @ 10 mls/hr IV .Q10H PRN; Protocol; 10 UNIT/HR PRN Reason: .TITR Last Titration: 10/14/16 00:43 Dose: 0 unit/hr, 0 mls/hr Propofol (Diprivan) 1,000 mg in 100 mls @ 3.201 mls/hr IV .Q24H PRN; Protocol; 5 MCG/KG/MIN PRN Reason: TITRATE PER MD ORDER Last Titration: 10/14/16 10:32 Dose: 7.5 mcg/kg/min, 4.802 mls/hr Insulin Glargine (Lantus) 30 unit SC [facility] Last Admin: 10/13/16 22:45 Dose: 30 units Insulin Human Regular (Novolin R) 0 unit SC Q4 MINI PRN Reason: Protocol Last Admin: 10/14/16 12:01 Dose: 10 unit Lactulose (Enulose) 20 gm NG BID [facility] Last Admin: 10/14/16 10:05 Dose: 20 gm Lorazepam (Ativan) 2 mg IVP Q6H PRN PRN Reason: Anxiety Last Admin: 10/10/16 05:30 Dose: 2 mg Metoprolol Tartrate (Lopressor) 25 mg NG BID [facility] Last Admin: 10/14/16 10:06 Dose: 25 mg Pantoprazole Sodium (Protonix Susp) 40 mg PO DAILY [facility] Last Admin: 10/14/16 10:06 Dose: 40 mg - Labs Labs: 10/14/16 06:25 10/14/16 06:25 PT 16.5 SECONDS (9.7-12.2) H 10/09/16 12:53 INR 1.4 10/09/16 12:53 APTT 39 SECONDS (21-34) H 10/09/16 12:53 Assessment and Plan (1) Meningitis Status: Acute (2) Meningitis Status: Acute (3) Acute confusional state Status: Acute (4) Encephalopathy acute Status: Acute (5) Pneumonia Status: Acute (6) Sepsis Status: Acute
[2016-10-14] MEDS: (Lantus) Insulin Glargine, Recombinant SC SCH (21:03)
[2016-10-15] MEDS: (Novolin R) Insulin Human Regular 100 units/ml vial SC SCH ×6 (00:11→21:00)
[2016-10-15 05:45] LABS: ABG ALLEN TEST POS; ABG MECHANICAL RATE 18; ARTERIAL BLOOD HGB O2 SAT 95.1 % (95.0-98.0); ATERIAL BLOOD GAS PEEP 5; CARBOXYHEMOGLOBIN 1.6 % (0.5-1.5); DRAW SITE RR; HHB 2.6 % (0.0-5.0); METHEMOGLOBIN 0.7 % (0.0-3.0)
[2016-10-15 06:43] LABS: BASO # 0.1 K/uL (0.0-0.2); BASO % 0.7 % (0.0-2.0); EOS # 0.3 K/uL (0.0-0.7); EOS % 1.9 % (0.0-4.0); HEMATOCRIT 40.6 % (34.0-47.0); LYMPH # 2.9 K/uL (1.0-4.3); LYMPH % 17.6 % (20.0-40.0); MEAN CELL VOLUME 88.5 fL (81.0-99.0); MEAN CORPUSCULAR HEMOGLOBIN 29.3 pg (27.0-31.0); MEAN CORPUSCULAR HGB CONC 33.1 g/dL (33.0-37.0); MEAN PLATELET VOLUME 8.4 fL (7.2-11.7); MONO # 0.6 K/uL (0.0-0.8); MONO % 3.7 % (0.0-10.0); RED CELL DISTRIBUTION WIDTH 13.3 % (11.5-14.5); WHITE BLOOD COUNT 16.3 K/uL (4.8-10.8)
[2016-10-15 07:14] LABS: CHLORIDE 111 mmol/L (98-107); POTASSIUM 3.3 mmol/L (3.6-5.2); SODIUM 148 mmol/L (132-148)
[2016-10-15 07:16] LABS: BILIRUBIN,TOTAL 0.7 mg/dL (0.2-1.3); CARBON DIOXIDE 28 mmol/L (22-30); GFR AFRICAN-AMERICAN > 60
[2016-10-15 07:17] LABS: ALB/GLOB RATIO 0.8 (1.0-2.1); ALKALINE PHOSPHATASE 92 U/L (38-126); ALT/SGPT 36 U/L (9-52); AST/SGOT 35 U/L (14-36); BLOOD UREA NITROGEN 34 mg/dL (7-17); CALCIUM 9.9 mg/dl (8.6-10.4); GLUCOSE,RANDOM 308 mg/dL (65-105); MAGNESIUM 2.3 mg/dL (1.6-2.3); PHOSPHOROUS 2.8 mg/dL (2.5-4.5); TOTAL PROTEIN 6.8 g/dL (6.3-8.3)
--- NOTE | 2016-10-15 08:28 | RAD ---
HISTORY: Follow-up. Portable study 07:09. COMPARISON: Multiple serial examinations preceding the most recent study: October 13, 2016. FINDINGS: LUNGS: No active pulmonary disease. PLEURA: No significant pleural effusion identified, no pneumothorax apparent. CARDIOVASCULAR: No radiographic findings to suggest acute or significant cardiovascular disease. OSSEOUS STRUCTURES: No significant abnormalities. VISUALIZED UPPER ABDOMEN: Normal. OTHER FINDINGS: Stable, satisfactory position ventilatory, vascular and nasogastric apparatus. . IMPRESSION: No significant interval change compared to the prior examination(s).
[2016-10-15] MEDS: cefTRIAXone 2 GM in Sodium Chloride 0.9% 100 ML IVPB SCH ×2 (10:13→21:15)
[2016-10-15] MEDS: Propofol 10 mg/ml 1,000 MG/100 ML VIAL IV PRN ×2 (10:14→21:20)
[2016-10-15] MEDS: Enoxaparin 40 mg Syringe SC SCH (10:16)
[2016-10-15] MEDS: Pantoprazole 40 mg Susp UD PO SCH (10:18)
[2016-10-15] MEDS: White Petrolatum/Mineral Oil Ophth Oint(3.5 gm) OU SCH ×2 (10:19→17:37)
--- NOTE | 2016-10-15 11:39 | CP.CCUPN ---
<Miguel Mendez - Last Filed: 10/15/16 11:57> CCU Subjective - Physician Review Subjective (Free Text): 10/15/16 11:35 PGY-1 ICU progress note Pt seen and examined at bedside. Intubated. No overnight events. Critical Care Time Spent (in minutes): 35 CCU Objective - Vital Signs / Intake & Output Vital Signs (Last 4 hours): Vital Signs BP 10/15/16 10:18 114/65 10/15/16 10:16 114/65 Intake and Output (Last 8hrs): Intake & Output 10/14/16 10/15/16 10/15/16 22:59 06:59 14:59 Intake Total 551.6 333.9 100 Output Total 700 475 Balance -148.4 -141.1 100 Intake: IV 70.0 100 Intake, IV Amount 161.6 53.9 Right Jug TLC Medial 100 Right Jug TLC Proximal 61.6 53.9 Tube Feeding 320 280 Output: Urine 700 475 Urethral ([place]) 700 475 - Physical Exam Head: Positive for: Atraumatic, Normocephalic Pupils: Positive for: Sluggish Mouth: Positive for: Moist Mucous Membranes, Other (secretions noted) Respiratory/Chest: Positive for: Rhonchi, Other (intubated) Cardiovascular: Positive for: Normal S1, S2, Tachycardic Abdomen: Positive for: Normal Bowel Sounds. Negative for: Distention Upper Extremity: Positive for: NORMAL PULSES, Neurovascularly Intact Lower Extremity: Positive for: NORMAL PULSES, Neurovascularly Intact Neurological: Positive for: Other (unresponsive) Skin: Positive for: Warm, Dry - Medications Active Medications: Active Medications Generic Name Dose Route Start Last Admin Trade Name Freq PRN Reason Stop Dose Admin Acetaminophen 650 mg 10/09/16 00:41 10/11/16 02:09 Tylenol 650mg/20.3ml Solution Ud NG 650 mg Q6 PRN Administration FOR TEMP 101*F OR ABOVE Artificial Tears 1 gm 10/11/16 10:30 10/15/16 10:19 Lacri-Lube OU 1 gm BID MIIN Administration Enoxaparin Sodium 40 mg 10/09/16 17:30 10/15/16 10:16 Lovenox SC 40 mg DAILY MINI Administration Furosemide 40 mg 10/13/16 10:00 10/15/16 10:16 Lasix IVP 40 mg DAILY MINI Administration Ceftriaxone Sodium 2 gm/ 100 mls @ 100 mls/hr 10/10/16 22:00 10/15/16 10:13 Sodium Chloride IVPB 100 mls/hr Q12 MINI Administration Propofol 1,000 mg in 100 mls @ 3.201 mls/hr 10/12/16 00:25 10/15/16 10:14 Diprivan IV 12 mcg/kg/min .Q24H PRN 7.683 mls/hr TITRATE PER MD ORDER Administration Protocol 5 MCG/KG/MIN Insulin Detemir 10 unit 10/15/16 22:00 Levemir SC HS [facility] Insulin Glargine 30 unit 10/13/16 07:22 10/14/16 21:03 Lantus SC 30 units HS MINI Administration Insulin Human Regular 0 unit 10/14/16 12:00 10/15/16 08:35 Novolin R SC 4 unit Q4 MINI Administration Protocol Lactulose 20 gm 10/12/16 18:00 10/14/16 18:27 Enulose NG 20 gm BID MINI Administration Lorazepam 2 mg 10/09/16 21:06 10/10/16 05:30 Ativan IVP 2 mg Q6H PRN Administration Anxiety Metoprolol Tartrate 25 mg 10/12/16 18:00 10/15/16 10:18 Lopressor NG 25 mg BID MINI Administration Pantoprazole Sodium 40 mg 10/12/16 10:00 10/15/16 10:18 Protonix Susp PO 40 mg DAILY MINI Administration - Patient Studies Lab Studies: Microbiology Studies 10/10/16 10:57 Gram Stain - Final Cerebral Spinal Fluid CSF Culture - Final NO GROWTH AFTER 5 DAYS 10/11/16 08:30 Blood Culture - Preliminary Blood-Venous NO GROWTH AFTER 3 DAYS 10/11/16 08:00 Blood Culture - Preliminary Blood-Venous NO GROWTH AFTER 3 DAYS Lab Studies 10/15/16 10/15/16 10/15/16 Range/Units 08:00 06:30 06:30 WBC 16.3 H (4.8-10.8) K/uL RBC 4.59 (3.80-5.20) Mil/uL Hgb 13.4 (11.0-16.0) g/dL Hct 40.6 (34.0-47.0) % MCV 88.5 (81.0-99.0) fL MCH 29.3 (27.0-31.0) pg MCHC 33.1 (33.0-37.0) g/dL RDW 13.3 (11.5-14.5) % Plt Count 320 (130-400) K/uL MPV 8.4 (7.2-11.7) fL Neut % (Auto) 76.1 H (50.0-75.0) % Lymph % (Auto) 17.6 L (20.0-40.0) % [place] % (Auto) 3.7 (0.0-10.0) % Eos % (Auto) 1.9 (0.0-4.0) % Baso % (Auto) 0.7 (0.0-2.0) % Neut # 12.4 H (1.8-7.0) K/uL Lymph # 2.9 (1.0-4.3) K/uL [place] # 0.6 (0.0-0.8) K/uL Eos # 0.3 (0.0-0.7) K/uL Baso # 0.1 (0.0-0.2) K/uL Puncture Site pCO2 (35-45) mm/Hg pO2 (80-100) mm/Hg HCO3 (21-28) mmol/L ABG pH (7.35-7.45) ABG Total CO2 (22-28) mmol/L ABG O2 Saturation (95-98) % ABG Base Excess (-2.0-3.0) mmol/L ABG Hemoglobin (11.7-17.4) g/dL ABG Carboxyhemoglobin (0.5-1.5) % POC ABG HHb (Measured) (0.0-5.0) % ABG Methemoglobin (0.0-3.0) % Nico Test A-a O2 Difference mm/Hg Respiratory Index Hgb O2 Saturation (95.0-98.0) % Mechanical Rate FiO2 % Tidal Volume PEEP Sodium 148 (132-148) mmol/L Potassium 3.3 L (3.6-5.2) mmol/L Chloride 111 H (98-107) mmol/L Carbon Dioxide 28 (22-30) mmol/L Anion Gap 12 (10-20) BUN 34 H (7-17) mg/dL Creatinine 0.5 L (0.7-1.2) MG/DL Est GFR ( Amer) > 60 Est GFR (Non-Af Amer) > 60 POC Glucose (mg/dL) 242 H (65-110) mg/dL Random Glucose 308 H (65-105) mg/dL Serum Osmolality (272-300) mosm/kg Calcium 9.9 (8.6-10.4) mg/dl Phosphorus 2.8 (2.5-4.5) mg/dL Magnesium 2.3 (1.6-2.3) mg/dL Total Bilirubin 0.7 (0.2-1.3) mg/dL AST 35 (14-36) U/L ALT 36 (9-52) U/L Alkaline Phosphatase 92 (38-126) U/L Total Protein 6.8 (6.3-8.3) g/dL Albumin 2.9 L (3.5-5.0) g/dL Globulin 3.8 (2.2-3.9) gm/dL Albumin/Globulin Ratio 0.8 L (1.0-2.1) 10/15/16 10/15/16 10/15/16 Range/Units 06:30 05:20 04:56 WBC (4.8-10.8) K/uL RBC (3.80-5.20) Mil/uL Hgb (11.0-16.0) g/dL Hct (34.0-47.0) % MCV (81.0-99.0) fL MCH (27.0-31.0) pg MCHC (33.0-37.0) g/dL RDW (11.5-14.5) % Plt Count (130-400) K/uL MPV (7.2-11.7) fL Neut % (Auto) (50.0-75.0) % Lymph % (Auto) (20.0-40.0) % [place] % (Auto) (0.0-10.0) % Eos % (Auto) (0.0-4.0) % Baso % (Auto) (0.0-2.0) % Neut # (1.8-7.0) K/uL Lymph # (1.0-4.3) K/uL [place] # (0.0-0.8) K/uL Eos # (0.0-0.7) K/uL Baso # (0.0-0.2) K/uL Puncture Site Rr pCO2 40 (35-45) mm/Hg pO2 79 L (80-100) mm/Hg HCO3 27.6 (21-28) mmol/L ABG pH 7.45 (7.35-7.45) ABG Total CO2 29.0 H (22-28) mmol/L ABG O2 Saturation 97.3 (95-98) % ABG Base Excess 3.5 H (-2.0-3.0) mmol/L ABG Hemoglobin 13.8 (11.7-17.4) g/dL ABG Carboxyhemoglobin 1.6 H (0.5-1.5) % POC ABG HHb (Measured) 2.6 (0.0-5.0) % ABG Methemoglobin 0.7 (0.0-3.0) % Nico Test Pos A-a O2 Difference 85.0 mm/Hg Respiratory Index 1.1 Hgb O2 Saturation 95.1 (95.0-98.0) % Mechanical Rate 18 FiO2 30.0 % Tidal Volume 500 PEEP 5 Sodium (132-148) mmol/L Potassium (3.6-5.2) mmol/L Chloride (98-107) mmol/L Carbon Dioxide (22-30) mmol/L Anion Gap (10-20) BUN (7-17) mg/dL Creatinine (0.7-1.2) MG/DL Est GFR ( Amer) Est GFR (Non-Af Amer) POC Glucose (mg/dL) 313 H (65-110) mg/dL Random Glucose (65-105) mg/dL Serum Osmolality 341 H (272-300) mosm/kg Calcium (8.6-10.4) mg/dl Phosphorus (2.5-4.5) mg/dL Magnesium (1.6-2.3) mg/dL Total Bilirubin (0.2-1.3) mg/dL AST (14-36) U/L ALT (9-52) U/L Alkaline Phosphatase (38-126) U/L Total Protein (6.3-8.3) g/dL Albumin (3.5-5.0) g/dL Globulin (2.2-3.9) gm/dL Albumin/Globulin Ratio (1.0-2.1) 10/15/16 10/14/16 10/14/16 Range/Units 00:37 19:48 16:04 WBC (4.8-10.8) K/uL RBC (3.80-5.20) Mil/uL Hgb (11.0-16.0) g/dL Hct (34.0-47.0) % MCV (81.0-99.0) fL MCH (27.0-31.0) pg MCHC (33.0-37.0) g/dL RDW (11.5-14.5) % Plt Count (130-400) K/uL MPV (7.2-11.7) fL Neut % (Auto) (50.0-75.0) % Lymph % (Auto) (20.0-40.0) % [place] % (Auto) (0.0-10.0) % Eos % (Auto) (0.0-4.0) % Baso % (Auto) (0.0-2.0) % Neut # (1.8-7.0) K/uL Lymph # (1.0-4.3) K/uL [place] # (0.0-0.8) K/uL Eos # (0.0-0.7) K/uL Baso # (0.0-0.2) K/uL Puncture Site pCO2 (35-45) mm/Hg pO2 (80-100) mm/Hg HCO3 (21-28) mmol/L ABG pH (7.35-7.45) ABG Total CO2 (22-28) mmol/L ABG O2 Saturation (95-98) % ABG Base Excess (-2.0-3.0) mmol/L ABG Hemoglobin (11.7-17.4) g/dL ABG Carboxyhemoglobin (0.5-1.5) % POC ABG HHb (Measured) (0.0-5.0) % ABG Methemoglobin (0.0-3.0) % Nico Test A-a O2 Difference mm/Hg Respiratory Index Hgb O2 Saturation (95.0-98.0) % Mechanical Rate FiO2 % Tidal Volume PEEP Sodium (132-148) mmol/L Potassium (3.6-5.2) mmol/L Chloride (98-107) mmol/L Carbon Dioxide (22-30) mmol/L Anion Gap (10-20) BUN (7-17) mg/dL Creatinine (0.7-1.2) MG/DL Est GFR ( Amer) Est GFR (Non-Af Amer) POC Glucose (mg/dL) 332 H 340 H 364 H (65-110) mg/dL Random Glucose (65-105) mg/dL Serum Osmolality (272-300) mosm/kg Calcium (8.6-10.4) mg/dl Phosphorus (2.5-4.5) mg/dL Magnesium (1.6-2.3) mg/dL Total Bilirubin (0.2-1.3) mg/dL AST (14-36) U/L ALT (9-52) U/L Alkaline Phosphatase (38-126) U/L Total Protein (6.3-8.3) g/dL Albumin (3.5-5.0) g/dL Globulin (2.2-3.9) gm/dL Albumin/Globulin Ratio (1.0-2.1) 10/14/16 Range/Units 11:45 WBC (4.8-10.8) K/uL RBC (3.80-5.20) Mil/uL Hgb (11.0-16.0) g/dL Hct (34.0-47.0) % MCV (81.0-99.0) fL MCH (27.0-31.0) pg MCHC (33.0-37.0) g/dL RDW (11.5-14.5) % Plt Count (130-400) K/uL MPV (7.2-11.7) fL Neut % (Auto) (50.0-75.0) % Lymph % (Auto) (20.0-40.0) % [place] % (Auto) (0.0-10.0) % Eos % (Auto) (0.0-4.0) % Baso % (Auto) (0.0-2.0) % Neut # (1.8-7.0) K/uL Lymph # (1.0-4.3) K/uL [place] # (0.0-0.8) K/uL Eos # (0.0-0.7) K/uL Baso # (0.0-0.2) K/uL Puncture Site pCO2 (35-45) mm/Hg pO2 (80-100) mm/Hg HCO3 (21-28) mmol/L ABG pH (7.35-7.45) ABG Total CO2 (22-28) mmol/L ABG O2 Saturation (95-98) % ABG Base Excess (-2.0-3.0) mmol/L ABG Hemoglobin (11.7-17.4) g/dL ABG Carboxyhemoglobin (0.5-1.5) % POC ABG HHb (Measured) (0.0-5.0) % ABG Methemoglobin (0.0-3.0) % Nico Test A-a O2 Difference mm/Hg Respiratory Index Hgb O2 Saturation (95.0-98.0) % Mechanical Rate FiO2 % Tidal Volume PEEP Sodium (132-148) mmol/L Potassium (3.6-5.2) mmol/L Chloride (98-107) mmol/L Carbon Dioxide (22-30) mmol/L Anion Gap (10-20) BUN (7-17) mg/dL Creatinine (0.7-1.2) MG/DL Est GFR ( Amer) Est GFR (Non-Af Amer) POC Glucose (mg/dL) 359 H (65-110) mg/dL Random Glucose (65-105) mg/dL Serum Osmolality (272-300) mosm/kg Calcium (8.6-10.4) mg/dl Phosphorus (2.5-4.5) mg/dL Magnesium (1.6-2.3) mg/dL Total Bilirubin (0.2-1.3) mg/dL AST (14-36) U/L ALT (9-52) U/L Alkaline Phosphatase (38-126) U/L Total Protein (6.3-8.3) g/dL Albumin (3.5-5.0) g/dL Globulin (2.2-3.9) gm/dL Albumin/Globulin Ratio (1.0-2.1) Laboratory Results - last 24 hr 10/14/16 10/14/16 10/14/16 11:45 16:04 19:48 WBC RBC Hgb Hct MCV MCH MCHC RDW Plt Count MPV Neut % (Auto) Lymph % (Auto) [place] % (Auto) Eos % (Auto) Baso % (Auto) Neut # Lymph # [place] # Eos # Baso # Puncture Site pCO2 pO2 HCO3 ABG pH ABG Total CO2 ABG O2 Saturation ABG Base Excess ABG Hemoglobin ABG Carboxyhemoglobin POC ABG HHb (Measured) ABG Methemoglobin Nico Test A-a O2 Difference Respiratory Index Hgb O2 Saturation Mechanical Rate FiO2 Tidal Volume PEEP Sodium Potassium Chloride Carbon Dioxide Anion Gap BUN Creatinine Est GFR ( Amer) Est GFR (Non-Af Amer) POC Glucose (mg/dL) 359 H 364 H 340 H Random Glucose Serum Osmolality Calcium Phosphorus Magnesium Total Bilirubin AST ALT Alkaline Phosphatase Total Protein Albumin Globulin Albumin/Globulin Ratio 10/15/16 10/15/16 10/15/16 00:37 04:56 05:20 WBC RBC Hgb Hct MCV MCH MCHC RDW Plt Count MPV Neut % (Auto) Lymph % (Auto) [place] % (Auto) Eos % (Auto) Baso % (Auto) Neut # Lymph # [place] # Eos # Baso # Puncture Site Rr pCO2 40 pO2 79 L HCO3 27.6 ABG pH 7.45 ABG Total CO2 29.0 H ABG O2 Saturation 97.3 ABG Base Excess 3.5 H ABG Hemoglobin 13.8 ABG Carboxyhemoglobin 1.6 H POC ABG HHb (Measured) 2.6 ABG Methemoglobin 0.7 Nico Test Pos A-a O2 Difference 85.0 Respiratory Index 1.1 Hgb O2 Saturation 95.1 Mechanical Rate 18 FiO2 30.0 Tidal Volume 500 PEEP 5 Sodium Potassium Chloride Carbon Dioxide Anion Gap BUN Creatinine Est GFR ( Amer) Est GFR (Non-Af Amer) POC Glucose (mg/dL) 332 H 313 H Random Glucose Serum Osmolality Calcium Phosphorus Magnesium Total Bilirubin AST ALT Alkaline Phosphatase Total Protein Albumin Globulin Albumin/Globulin Ratio 10/15/16 10/15/16 10/15/16 06:30 06:30 06:30 WBC 16.3 H RBC 4.59 Hgb 13.4 Hct 40.6 MCV 88.5 MCH 29.3 MCHC 33.1 RDW 13.3 Plt Count 320 MPV 8.4 Neut % (Auto) 76.1 H Lymph % (Auto) 17.6 L [place] % (Auto) 3.7 Eos % (Auto) 1.9 Baso % (Auto) 0.7 Neut # 12.4 H Lymph # 2.9 [place] # 0.6 Eos # 0.3 Baso # 0.1 Puncture Site pCO2 pO2 HCO3 ABG pH ABG Total CO2 ABG O2 Saturation ABG Base Excess ABG Hemoglobin ABG Carboxyhemoglobin POC ABG HHb (Measured) ABG Methemoglobin Nico Test A-a O2 Difference Respiratory Index Hgb O2 Saturation Mechanical Rate FiO2 Tidal Volume PEEP Sodium 148 Potassium 3.3 L Chloride 111 H Carbon Dioxide 28 Anion Gap 12 BUN 34 H Creatinine 0.5 L Est GFR ( Amer) > 60 Est GFR (Non-Af Amer) > 60 POC Glucose (mg/dL) Random Glucose 308 H Serum Osmolality 341 H Calcium 9.9 Phosphorus 2.8 Magnesium 2.3 Total Bilirubin 0.7 AST 35 ALT 36 Alkaline Phosphatase 92 Total Protein 6.8 Albumin 2.9 L Globulin 3.8 Albumin/Globulin Ratio 0.8 L 10/15/16 08:00 WBC RBC Hgb Hct MCV MCH MCHC RDW Plt Count MPV Neut % (Auto) Lymph % (Auto) [place] % (Auto) Eos % (Auto) Baso % (Auto) Neut # Lymph # [place] # Eos # Baso # Puncture Site pCO2 pO2 HCO3 ABG pH ABG Total CO2 ABG O2 Saturation ABG Base Excess ABG Hemoglobin ABG Carboxyhemoglobin POC ABG HHb (Measured) ABG Methemoglobin Nico Test A-a O2 Difference Respiratory Index Hgb O2 Saturation Mechanical Rate FiO2 Tidal Volume PEEP Sodium Potassium Chloride Carbon Dioxide Anion Gap BUN Creatinine Est GFR ( Amer) Est GFR (Non-Af Amer) POC Glucose (mg/dL) 242 H Random Glucose Serum Osmolality Calcium Phosphorus Magnesium Total Bilirubin AST ALT Alkaline Phosphatase Total Protein Albumin Globulin Albumin/Globulin Ratio Fingerstick Blood Sugar Results: 242 Review of Systems - Review of Systems Systems not reviewed;Unavailable: Intubated Assessment/Plan - Assessment and Plan (Free Text) Assessment: 61F with severe sepsis/MOSF likely 2/2 meningitis (most likely S. pneumo); s. pneumo bacteremia and poss pna; acute hypoxic resp failure, intubated Plan: Neuro: Propofol for sedation Neuro following Maintain serm Na 145-150 MRI when possible Latest CT head shows concern for multifocal ischemia Cardiovascular: Tachycardic but hemodynamically stable. F/U carotid duplex Monitor Pulmonary: Intubated. Saturating well. Continue rocephin Gastrointestinal: No acute issues, on tube feeds, tolerating well. Hematology: No acute issues Endocrine: Blood sugars still uncontrolled Add Levemir 10 units HS Sliding scale coverage Renal: Monitor electrolytes Strict I/O - good urine output Infectious Disease: Likely strep pneumo meningitis - CSF cultures negative (drawn after abx initiation) Continue Rocephin ID following Pt received 4 days of high dose steroids, d/c'ed now GI Prophylaxis: Protonix DVT Prophylaxis: Lovenox <Matteo Almanzar S - Last Filed: 10/15/16 15:06> CCU Objective - Vital Signs / Intake & Output Vital Signs (Last 4 hours): Vital Signs Temp Pulse Resp BP Pulse Ox 10/15/16 14:00 100.5 F H 77 18 110/56 L 92 L 10/15/16 13:00 100.1 F H 79 18 142/61 93 L 10/15/16 12:00 99.5 F 69 18 102/52 L 93 L Intake and Output (Last 8hrs): Intake & Output 10/15/16 10/15/16 10/15/16 06:59 14:59 22:59 Intake Total 333.9 741.6 Output Total 475 735 Balance -141.1 6.6 Intake: IV 100 Intake, IV Amount 53.9 261.6 Right Jug TLC Medial 200 Right Jug TLC Proximal 53.9 61.6 Tube Feeding 280 320 Other 60 Output: Urine 475 735 Urethral ([place]) 475 735 - Medications Active Medications: Active Medications Generic Name Dose Route Start Last Admin Trade Name Freq PRN Reason Stop Dose Admin Acetaminophen 650 mg 10/09/16 00:41 10/11/16 02:09 Tylenol 650mg/20.3ml Solution Ud NG 650 mg Q6 PRN Administration FOR TEMP 101*F OR ABOVE Artificial Tears 1 gm 10/11/16 10:30 10/15/16 10:19 Lacri-Lube OU 1 gm BID MINI Administration Enoxaparin Sodium 40 mg 10/09/16 17:30 10/15/16 10:16 Lovenox SC 40 mg DAILY MINI Administration Furosemide 40 mg 10/13/16 10:00 10/15/16 10:16 Lasix IVP 40 mg DAILY MINI Administration Ceftriaxone Sodium 2 gm/ 100 mls @ 100 mls/hr 10/10/16 22:00 10/15/16 10:13 Sodium Chloride IVPB 100 mls/hr Q12 MINI Administration Propofol 1,000 mg in 100 mls @ 3.201 mls/hr 10/12/16 00:25 10/15/16 10:14 Diprivan IV 12 mcg/kg/min .Q24H PRN 7.683 mls/hr TITRATE PER MD ORDER Administration Protocol 5 MCG/KG/MIN Insulin Detemir 10 unit 10/15/16 22:00 Levemir SC HS MINI Insulin Glargine 30 unit 10/13/16 07:22 10/14/16 21:03 Lantus SC 30 units HS MINI Administration Insulin Human Regular 0 unit 10/14/16 12:00 10/15/16 11:55 Novolin R SC 8 unit Q4 MINI Administration Protocol Lactulose 20 gm 10/12/16 18:00 10/14/16 18:27 Enulose NG 20 gm BID MINI Administration Lorazepam 2 mg 10/09/16 21:06 10/10/16 05:30 Ativan IVP 2 mg Q6H PRN Administration Anxiety Metoprolol Tartrate 25 mg 10/12/16 18:00 10/15/16 10:18 Lopressor NG 25 mg BID MINI Administration Pantoprazole Sodium 40 mg 10/12/16 10:00 10/15/16 10:18 Protonix Susp PO 40 mg DAILY MIIN Administration - Patient Studies Lab Studies: Microbiology Studies 10/11/16 08:30 Blood Culture - Preliminary Blood-Venous NO GROWTH AFTER 4 DAYS 10/11/16 08:00 Blood Culture - Preliminary Blood-Venous NO GROWTH AFTER 4 DAYS 10/10/16 10:57 Gram Stain - Final Cerebral Spinal Fluid CSF Culture - Final NO GROWTH AFTER 5 DAYS Lab Studies 10/15/16 10/15/16 10/15/16 Range/Units 11:46 08:00 06:30 WBC (4.8-10.8) K/uL RBC (3.80-5.20) Mil/uL Hgb (11.0-16.0) g/dL Hct (34.0-47.0) % MCV (81.0-99.0) fL MCH (27.0-31.0) pg MCHC (33.0-37.0) g/dL RDW (11.5-14.5) % Plt Count (130-400) K/uL MPV (7.2-11.7) fL Neut % (Auto) (50.0-75.0) % Lymph % (Auto) (20.0-40.0) % [place] % (Auto) (0.0-10.0) % Eos % (Auto) (0.0-4.0) % Baso % (Auto) (0.0-2.0) % Neut # (1.8-7.0) K/uL Lymph # (1.0-4.3) K/uL [place] # (0.0-0.8) K/uL Eos # (0.0-0.7) K/uL Baso # (0.0-0.2) K/uL Puncture Site pCO2 (35-45) mm/Hg pO2 (80-100) mm/Hg HCO3 (21-28) mmol/L ABG pH (7.35-7.45) ABG Total CO2 (22-28) mmol/L ABG O2 Saturation (95-98) % ABG Base Excess (-2.0-3.0) mmol/L ABG Hemoglobin (11.7-17.4) g/dL ABG Carboxyhemoglobin (0.5-1.5) % POC ABG HHb (Measured) (0.0-5.0) % ABG Methemoglobin (0.0-3.0) % Nico Test A-a O2 Difference mm/Hg Respiratory Index Hgb O2 Saturation (95.0-98.0) % Mechanical Rate FiO2 % Tidal Volume PEEP Sodium 148 (132-148) mmol/L Potassium 3.3 L (3.6-5.2) mmol/L Chloride 111 H (98-107) mmol/L Carbon Dioxide 28 (22-30) mmol/L Anion Gap 12 (10-20) BUN 34 H (7-17) mg/dL Creatinine 0.5 L (0.7-1.2) MG/DL Est GFR ( Amer) > 60 Est GFR (Non-Af Amer) > 60 POC Glucose (mg/dL) 318 H 242 H (65-110) mg/dL Random Glucose 308 H (65-105) mg/dL Serum Osmolality (272-300) mosm/kg Calcium 9.9 (8.6-10.4) mg/dl Phosphorus 2.8 (2.5-4.5) mg/dL Magnesium 2.3 (1.6-2.3) mg/dL Total Bilirubin 0.7 (0.2-1.3) mg/dL AST 35 (14-36) U/L ALT 36 (9-52) U/L Alkaline Phosphatase 92 (38-126) U/L Total Protein 6.8 (6.3-8.3) g/dL Albumin 2.9 L (3.5-5.0) g/dL Globulin 3.8 (2.2-3.9) gm/dL Albumin/Globulin Ratio 0.8 L (1.0-2.1) 10/15/16 10/15/16 10/15/16 Range/Units 06:30 06:30 05:20 WBC 16.3 H (4.8-10.8) K/uL RBC 4.59 (3.80-5.20) Mil/uL Hgb 13.4 (11.0-16.0) g/dL Hct 40.6 (34.0-47.0) % MCV 88.5 (81.0-99.0) fL MCH 29.3 (27.0-31.0) pg MCHC 33.1 (33.0-37.0) g/dL RDW 13.3 (11.5-14.5) % Plt Count 320 (130-400) K/uL MPV 8.4 (7.2-11.7) fL Neut % (Auto) 76.1 H (50.0-75.0) % Lymph % (Auto) 17.6 L (20.0-40.0) % [place] % (Auto) 3.7 (0.0-10.0) % Eos % (Auto) 1.9 (0.0-4.0) % Baso % (Auto) 0.7 (0.0-2.0) % Neut # 12.4 H (1.8-7.0) K/uL Lymph # 2.9 (1.0-4.3) K/uL [place] # 0.6 (0.0-0.8) K/uL Eos # 0.3 (0.0-0.7) K/uL Baso # 0.1 (0.0-0.2) K/uL Puncture Site Rr pCO2 40 (35-45) mm/Hg pO2 79 L (80-100) mm/Hg HCO3 27.6 (21-28) mmol/L ABG pH 7.45 (7.35-7.45) ABG Total CO2 29.0 H (22-28) mmol/L ABG O2 Saturation 97.3 (95-98) % ABG Base Excess 3.5 H (-2.0-3.0) mmol/L ABG Hemoglobin 13.8 (11.7-17.4) g/dL ABG Carboxyhemoglobin 1.6 H (0.5-1.5) % POC ABG HHb (Measured) 2.6 (0.0-5.0) % ABG Methemoglobin 0.7 (0.0-3.0) % Nico Test Pos A-a O2 Difference 85.0 mm/Hg Respiratory Index 1.1 Hgb O2 Saturation 95.1 (95.0-98.0) % Mechanical Rate 18 FiO2 30.0 % Tidal Volume 500 PEEP 5 Sodium (132-148) mmol/L Potassium (3.6-5.2) mmol/L Chloride (98-107) mmol/L Carbon Dioxide (22-30) mmol/L Anion Gap (10-20) BUN (7-17) mg/dL Creatinine (0.7-1.2) MG/DL Est GFR ( Amer) Est GFR (Non-Af Amer) POC Glucose (mg/dL) (65-110) mg/dL Random Glucose (65-105) mg/dL Serum Osmolality 341 H (272-300) mosm/kg Calcium (8.6-10.4) mg/dl Phosphorus (2.5-4.5) mg/dL Magnesium (1.6-2.3) mg/dL Total Bilirubin (0.2-1.3) mg/dL AST (14-36) U/L ALT (9-52) U/L Alkaline Phosphatase (38-126) U/L Total Protein (6.3-8.3) g/dL Albumin (3.5-5.0) g/dL Globulin (2.2-3.9) gm/dL Albumin/Globulin Ratio (1.0-2.1) 10/15/16 10/15/16 10/14/16 Range/Units 04:56 00:37 19:48 WBC (4.8-10.8) K/uL RBC (3.80-5.20) Mil/uL Hgb (11.0-16.0) g/dL Hct (34.0-47.0) % MCV (81.0-99.0) fL MCH (27.0-31.0) pg MCHC (33.0-37.0) g/dL RDW (11.5-14.5) % Plt Count (130-400) K/uL MPV (7.2-11.7) fL Neut % (Auto) (50.0-75.0) % Lymph % (Auto) (20.0-40.0) % [place] % (Auto) (0.0-10.0) % Eos % (Auto) (0.0-4.0) % Baso % (Auto) (0.0-2.0) % Neut # (1.8-7.0) K/uL Lymph # (1.0-4.3) K/uL [place] # (0.0-0.8) K/uL Eos # (0.0-0.7) K/uL Baso # (0.0-0.2) K/uL Puncture Site pCO2 (35-45) mm/Hg pO2 (80-100) mm/Hg HCO3 (21-28) mmol/L ABG pH (7.35-7.45) ABG Total CO2 (22-28) mmol/L ABG O2 Saturation (95-98) % ABG Base Excess (-2.0-3.0) mmol/L ABG Hemoglobin (11.7-17.4) g/dL ABG Carboxyhemoglobin (0.5-1.5) % POC ABG HHb (Measured) (0.0-5.0) % ABG Methemoglobin (0.0-3.0) % Nico Test A-a O2 Difference mm/Hg Respiratory Index Hgb O2 Saturation (95.0-98.0) % Mechanical Rate FiO2 % Tidal Volume PEEP Sodium (132-148) mmol/L Potassium (3.6-5.2) mmol/L Chloride (98-107) mmol/L Carbon Dioxide (22-30) mmol/L Anion Gap (10-20) BUN (7-17) mg/dL Creatinine (0.7-1.2) MG/DL Est GFR ( Amer) Est GFR (Non-Af Amer) POC Glucose (mg/dL) 313 H 332 H 340 H (65-110) mg/dL Random Glucose (65-105) mg/dL Serum Osmolality (272-300) mosm/kg Calcium (8.6-10.4) mg/dl Phosphorus (2.5-4.5) mg/dL Magnesium (1.6-2.3) mg/dL Total Bilirubin (0.2-1.3) mg/dL AST (14-36) U/L ALT (9-52) U/L Alkaline Phosphatase (38-126) U/L Total Protein (6.3-8.3) g/dL Albumin (3.5-5.0) g/dL Globulin (2.2-3.9) gm/dL Albumin/Globulin Ratio (1.0-2.1) 10/14/16 Range/Units 16:04 WBC (4.8-10.8) K/uL RBC (3.80-5.20) Mil/uL Hgb (11.0-16.0) g/dL Hct (34.0-47.0) % MCV (81.0-99.0) fL MCH (27.0-31.0) pg MCHC (33.0-37.0) g/dL RDW (11.5-14.5) % Plt Count (130-400) K/uL MPV (7.2-11.7) fL Neut % (Auto) (50.0-75.0) % Lymph % (Auto) (20.0-40.0) % [place] % (Auto) (0.0-10.0) % Eos % (Auto) (0.0-4.0) % Baso % (Auto) (0.0-2.0) % Neut # (1.8-7.0) K/uL Lymph # (1.0-4.3) K/uL [place] # (0.0-0.8) K/uL Eos # (0.0-0.7) K/uL Baso # (0.0-0.2) K/uL Puncture Site pCO2 (35-45) mm/Hg pO2 (80-100) mm/Hg HCO3 (21-28) mmol/L ABG pH (7.35-7.45) ABG Total CO2 (22-28) mmol/L ABG O2 Saturation (95-98) % ABG Base Excess (-2.0-3.0) mmol/L ABG Hemoglobin (11.7-17.4) g/dL ABG Carboxyhemoglobin (0.5-1.5) % POC ABG HHb (Measured) (0.0-5.0) % ABG Methemoglobin (0.0-3.0) % Nico Test A-a O2 Difference mm/Hg Respiratory Index Hgb O2 Saturation (95.0-98.0) % Mechanical Rate FiO2 % Tidal Volume PEEP Sodium (132-148) mmol/L Potassium (3.6-5.2) mmol/L Chloride (98-107) mmol/L Carbon Dioxide (22-30) mmol/L Anion Gap (10-20) BUN (7-17) mg/dL Creatinine (0.7-1.2) MG/DL Est GFR ( Amer) Est GFR (Non-Af Amer) POC Glucose (mg/dL) 364 H (65-110) mg/dL Random Glucose (65-105) mg/dL Serum Osmolality (272-300) mosm/kg Calcium (8.6-10.4) mg/dl Phosphorus (2.5-4.5) mg/dL Magnesium (1.6-2.3) mg/dL Total Bilirubin (0.2-1.3) mg/dL AST (14-36) U/L ALT (9-52) U/L Alkaline Phosphatase (38-126) U/L Total Protein (6.3-8.3) g/dL Albumin (3.5-5.0) g/dL Globulin (2.2-3.9) gm/dL Albumin/Globulin Ratio (1.0-2.1) Laboratory Results - last 24 hr 10/14/16 10/14/16 10/15/16 16:04 19:48 00:37 WBC RBC Hgb Hct MCV MCH MCHC RDW Plt Count MPV Neut % (Auto) Lymph % (Auto) [place] % (Auto) Eos % (Auto) Baso % (Auto) Neut # Lymph # [place] # Eos # Baso # Puncture Site pCO2 pO2 HCO3 ABG pH ABG Total CO2 ABG O2 Saturation ABG Base Excess ABG Hemoglobin ABG Carboxyhemoglobin POC ABG HHb (Measured) ABG Methemoglobin [place] Test A-a O2 Difference Respiratory Index Hgb O2 Saturation Mechanical Rate FiO2 Tidal Volume PEEP Sodium Potassium Chloride Carbon Dioxide Anion Gap BUN Creatinine Est GFR ( Amer) Est GFR (Non-Af Amer) POC Glucose (mg/dL) 364 H 340 H 332 H Random Glucose Serum Osmolality Calcium Phosphorus Magnesium Total Bilirubin AST ALT Alkaline Phosphatase Total Protein Albumin Globulin Albumin/Globulin Ratio 10/15/16 10/15/16 10/15/16 04:56 05:20 06:30 WBC RBC Hgb Hct MCV MCH MCHC RDW Plt Count MPV Neut % (Auto) Lymph % (Auto) [place] % (Auto) Eos % (Auto) Baso % (Auto) Neut # Lymph # [place] # Eos # Baso # Puncture Site Rr pCO2 40 pO2 79 L HCO3 27.6 ABG pH 7.45 ABG Total CO2 29.0 H ABG O2 Saturation 97.3 ABG Base Excess 3.5 H ABG Hemoglobin 13.8 ABG Carboxyhemoglobin 1.6 H POC ABG HHb (Measured) 2.6 ABG Methemoglobin 0.7 Nico Test Pos A-a O2 Difference 85.0 Respiratory Index 1.1 Hgb O2 Saturation 95.1 Mechanical Rate 18 FiO2 30.0 Tidal Volume 500 PEEP 5 Sodium Potassium Chloride Carbon Dioxide Anion Gap BUN Creatinine Est GFR ( Amer) Est GFR (Non-Af Amer) POC Glucose (mg/dL) 313 H Random Glucose Serum Osmolality 341 H Calcium Phosphorus Magnesium Total Bilirubin AST ALT Alkaline Phosphatase Total Protein Albumin Globulin Albumin/Globulin Ratio 10/15/16 10/15/16 10/15/16 06:30 06:30 08:00 WBC 16.3 H RBC 4.59 Hgb 13.4 Hct 40.6 MCV 88.5 MCH 29.3 MCHC 33.1 RDW 13.3 Plt Count 320 MPV 8.4 Neut % (Auto) 76.1 H Lymph % (Auto) 17.6 L [place] % (Auto) 3.7 Eos % (Auto) 1.9 Baso % (Auto) 0.7 Neut # 12.4 H Lymph # 2.9 [place] # 0.6 Eos # 0.3 Baso # 0.1 Puncture Site pCO2 pO2 HCO3 ABG pH ABG Total CO2 ABG O2 Saturation ABG Base Excess ABG Hemoglobin ABG Carboxyhemoglobin POC ABG HHb (Measured) ABG Methemoglobin Nico Test A-a O2 Difference Respiratory Index Hgb O2 Saturation Mechanical Rate FiO2 Tidal Volume PEEP Sodium 148 Potassium 3.3 L Chloride 111 H Carbon Dioxide 28 Anion Gap 12 BUN 34 H Creatinine 0.5 L Est GFR ( Amer) > 60 Est GFR (Non-Af Amer) > 60 POC Glucose (mg/dL) 242 H Random Glucose 308 H Serum Osmolality Calcium 9.9 Phosphorus 2.8 Magnesium 2.3 Total Bilirubin 0.7 AST 35 ALT 36 Alkaline Phosphatase 92 Total Protein 6.8 Albumin 2.9 L Globulin 3.8 Albumin/Globulin Ratio 0.8 L 10/15/16 11:46 WBC RBC Hgb Hct MCV MCH MCHC RDW Plt Count MPV Neut % (Auto) Lymph % (Auto) [place] % (Auto) Eos % (Auto) Baso % (Auto) Neut # Lymph # [place] # Eos # Baso # Puncture Site pCO2 pO2 HCO3 ABG pH ABG Total CO2 ABG O2 Saturation ABG Base Excess ABG Hemoglobin ABG Carboxyhemoglobin POC ABG HHb (Measured) ABG Methemoglobin Nico Test A-a O2 Difference Respiratory Index Hgb O2 Saturation Mechanical Rate FiO2 Tidal Volume PEEP Sodium Potassium Chloride Carbon Dioxide Anion Gap BUN Creatinine Est GFR ( Amer) Est GFR (Non-Af Amer) POC Glucose (mg/dL) 318 H Random Glucose Serum Osmolality Calcium Phosphorus Magnesium Total Bilirubin AST ALT Alkaline Phosphatase Total Protein Albumin Globulin Albumin/Globulin Ratio Attending/Attestation - Attestation I have personally seen and examined this patient.: Yes I have fully participated in the care of the patient.: Yes I have reviewed all pertinent clinical information: Yes Notes (Text): 10/15/16 15:04 Patient seen and examined in the intensive care unit. Case discussed with house staff in the morning rounds. Patient remains intubated on ventilatory support Change in mental status Patient treated for meningitis Repeat CAT scan consistent with multifocal ischemic changes Carotid Doppler Echocardiogram showed no endocarditis Name treated for strep bacteremia/meningitis Continue antibiotics per infectious disease
--- NOTE | 2016-10-15 12:03 | CP.PCM.PN ---
Subjective - Date & Time of Evaluation Date of Evaluation: 10/15/16 Time of Evaluation: 09:00 - Subjective Subjective: obtuinded on vent rx in progress Objective - Vital Signs/Intake and Output Vital Signs (last 24 hours): Temp Pulse Resp BP Pulse Ox 98.0 F 77 14 114/65 98 10/15/16 04:00 10/15/16 05:05 10/15/16 05:05 10/15/16 10:18 10/15/16 05:05 Intake and Output: 10/15/16 10/15/16 06:59 18:59 Intake Total 671.5 100 Output Total 700 Balance -28.5 100 - Medications Medications: Current Medications Acetaminophen (Tylenol 650mg/20.3ml Solution Ud) 650 mg NG Q6 PRN PRN Reason: FOR TEMP 101*F OR ABOVE Last Admin: 10/11/16 02:09 Dose: 650 mg Artificial Tears (Lacri-Lube) 1 gm OU BID [facility] Last Admin: 10/15/16 10:19 Dose: 1 gm Enoxaparin Sodium (Lovenox) 40 mg SC DAILY [facility] Last Admin: 10/15/16 10:16 Dose: 40 mg Furosemide (Lasix) 40 mg IVP DAILY [facility] Last Admin: 10/15/16 10:16 Dose: 40 mg Ceftriaxone Sodium 2 gm/ (Sodium Chloride) 100 mls @ 100 mls/hr IVPB Q12 [facility] Last Admin: 10/15/16 10:13 Dose: 100 mls/hr Propofol (Diprivan) 1,000 mg in 100 mls @ 3.201 mls/hr IV .Q24H PRN; Protocol; 5 MCG/KG/MIN PRN Reason: TITRATE PER MD ORDER Last Admin: 10/15/16 10:14 Dose: 12 mcg/kg/min, 7.683 mls/hr Insulin Detemir (Levemir) 10 unit SC HS [facility] Insulin Glargine (Lantus) 30 unit SC HS [facility] Last Admin: 10/14/16 21:03 Dose: 30 units Insulin Human Regular (Novolin R) 0 unit SC Q4 MINI PRN Reason: Protocol Last Admin: 10/15/16 11:55 Dose: 8 unit Lactulose (Enulose) 20 gm NG BID [facility] Last Admin: 10/14/16 18:27 Dose: 20 gm Lorazepam (Ativan) 2 mg IVP Q6H PRN PRN Reason: Anxiety Last Admin: 10/10/16 05:30 Dose: 2 mg Metoprolol Tartrate (Lopressor) 25 mg NG BID [facility] Last Admin: 10/15/16 10:18 Dose: 25 mg Pantoprazole Sodium (Protonix Susp) 40 mg PO DAILY [facility] Last Admin: 10/15/16 10:18 Dose: 40 mg - Labs Labs: 10/15/16 06:30 10/15/16 06:30 PT 16.5 SECONDS (9.7-12.2) H 10/09/16 12:53 INR 1.4 10/09/16 12:53 APTT 39 SECONDS (21-34) H 10/09/16 12:53 - Constitutional Appears: Confused - Head Exam Head Exam: NORMOCEPHALIC - Eye Exam Eye Exam: absent: Scleral icterus - ENT Exam ENT Exam: Mucous Membranes Dry - Neck Exam Neck Exam: absent: Lymphadenopathy - Respiratory Exam Respiratory Exam: Decreased Breath Sounds, Rhonchi - Cardiovascular Exam Cardiovascular Exam: REGULAR RHYTHM, +S1, +S2 - GI/Abdominal Exam GI & Abdominal Exam: Distended, Soft Assessment and Plan (1) Meningitis Status: Acute (2) Meningitis Status: Acute (3) Acute confusional state Status: Acute (4) Encephalopathy acute Status: Acute (5) Pneumonia Status: Acute (6) Sepsis Status: Acute
[2016-10-15] MEDS: (Lantus) Insulin Glargine, Recombinant SC SCH (21:15)
[2016-10-15] MEDS ORDERED: Insulin Detemir 100 units/ml Vial (Levemir) SC SCH (22:00)
[2016-10-16] MEDS: (Novolin R) Insulin Human Regular 100 units/ml vial SC SCH ×3 (01:00→10:00)
[2016-10-16 04:35] LABS: ABG ALLEN TEST POS; ABG MECHANICAL RATE 18; ATERIAL BLOOD GAS PEEP 5; CARBOXYHEMOGLOBIN 1.5 % (0.5-1.5); DRAW SITE RR; HHB 3.7 % (0.0-5.0); METHEMOGLOBIN 0.8 % (0.0-3.0)
[2016-10-16] MEDS: Propofol 10 mg/ml 1,000 MG/100 ML VIAL IV PRN (06:30)
[2016-10-16 06:50] LABS: BASO # 0.1 K/uL (0.0-0.2); BASO % 0.8 % (0.0-2.0); EOS # 0.4 K/uL (0.0-0.7); EOS % 2.5 % (0.0-4.0); HEMATOCRIT 38.6 % (34.0-47.0); LYMPH # 2.7 K/uL (1.0-4.3); LYMPH % 17.9 % (20.0-40.0); MEAN CELL VOLUME 88.2 fL (81.0-99.0); MEAN CORPUSCULAR HGB CONC 32.9 g/dL (33.0-37.0); MEAN PLATELET VOLUME 8.3 fL (7.2-11.7); MONO # 0.6 K/uL (0.0-0.8); MONO % 4.1 % (0.0-10.0); RED CELL DISTRIBUTION WIDTH 13.5 % (11.5-14.5); WHITE BLOOD COUNT 15.2 K/uL (4.8-10.8)
[2016-10-16 07:03] LABS: CHLORIDE 111 mmol/L (98-107); POTASSIUM 3.7 mmol/L (3.6-5.2); SODIUM 146 mmol/L (132-148)
[2016-10-16 07:05] LABS: ALB/GLOB RATIO 0.7 (1.0-2.1); ALKALINE PHOSPHATASE 84 U/L (38-126); AST/SGOT 31 U/L (14-36); BILIRUBIN,TOTAL 1.1 mg/dL (0.2-1.3); CARBON DIOXIDE 28 mmol/L (22-30); GFR AFRICAN-AMERICAN > 60; TOTAL PROTEIN 6.7 g/dL (6.3-8.3)
[2016-10-16 07:06] LABS: ALT/SGPT 35 U/L (9-52); BLOOD UREA NITROGEN 35 mg/dL (7-17); CALCIUM 9.8 mg/dl (8.6-10.4); GLUCOSE,RANDOM 308 mg/dL (65-105); MAGNESIUM 2.3 mg/dL (1.6-2.3); PHOSPHOROUS 2.7 mg/dL (2.5-4.5)
[2016-10-16] MEDS ORDERED: Insulin Human Regular 100 UNIT in Sodium Chloride 0.9% 99 ML IV SCH ×2 (09:30→13:20)
--- NOTE | 2016-10-16 09:43 | RAD ---
HISTORY: intubated COMPARISON: 10/15/2016 FINDINGS: LUNGS: No active pulmonary disease. PLEURA: No significant pleural effusion identified, no pneumothorax apparent. CARDIOVASCULAR: No change in position of the ET tube and nasogastric tube and right IJ central venous catheter. OSSEOUS STRUCTURES: No significant abnormalities. VISUALIZED UPPER ABDOMEN: Normal. OTHER FINDINGS: None. IMPRESSION: No active disease.
[2016-10-16] MEDS: Pantoprazole 40 mg Susp UD PO SCH (10:01)
[2016-10-16] MEDS: cefTRIAXone 2 GM in Sodium Chloride 0.9% 100 ML IVPB SCH ×2 (10:02→21:39)
[2016-10-16] MEDS: Enoxaparin 40 mg Syringe SC SCH (10:02)
[2016-10-16] MEDS: White Petrolatum/Mineral Oil Ophth Oint(3.5 gm) OU SCH ×2 (11:43→18:08)
[2016-10-16] MEDS ORDERED: Insulin Human Regular 100 UNIT in Sodium Chloride 0.9% 99 ML IV PRN (13:30)
--- NOTE | 2016-10-16 17:19 | CP.PCM.PN ---
Subjective - Date & Time of Evaluation Date of Evaluation: 10/16/16 Time of Evaluation: 08:00 - Subjective Subjective: obtunded on vent will likely need trach/peg cont iv rx for 14 days consider MADELYN Objective - Vital Signs/Intake and Output Vital Signs (last 24 hours): Temp Pulse Resp BP Pulse Ox 100.8 F H 86 17 110/54 L 95 10/16/16 16:00 10/16/16 16:00 10/16/16 16:00 10/16/16 16:00 10/16/16 16:00 Intake and Output: 10/16/16 10/16/16 06:59 18:59 Intake Total 912.4 593.1 Output Total 655 940 Balance 257.4 -346.9 - Medications Medications: Current Medications Acetaminophen (Tylenol 650mg/20.3ml Solution Ud) 650 mg NG Q6 PRN PRN Reason: FOR TEMP 101*F OR ABOVE Last Admin: 10/11/16 02:09 Dose: 650 mg Artificial Tears (Lacri-Lube) 1 gm OU BID [facility] Last Admin: 10/16/16 11:43 Dose: 1 gm Enoxaparin Sodium (Lovenox) 40 mg SC DAILY [facility] Last Admin: 10/16/16 10:02 Dose: 40 mg Furosemide (Lasix) 40 mg IVP DAILY [facility] Last Admin: 10/16/16 10:02 Dose: 40 mg Ceftriaxone Sodium 2 gm/ (Sodium Chloride) 100 mls @ 100 mls/hr IVPB Q12 [facility] Last Admin: 10/16/16 10:02 Dose: 100 mls/hr Propofol (Diprivan) 1,000 mg in 100 mls @ 3.201 mls/hr IV .Q24H PRN; Protocol; 5 MCG/KG/MIN PRN Reason: TITRATE PER MD ORDER Last Admin: 10/16/16 06:30 Dose: 12 mcg/kg/min, 7.683 mls/hr Insulin Human Regular 100 unit (/ Sodium Chloride) 100 mls @ 0 mls/hr IV .Q0M PRN; Per Protocol PRN Reason: Protocol Lactulose (Enulose) 20 gm NG BID [facility] Last Admin: 10/16/16 11:42 Dose: Not Given Lorazepam (Ativan) 2 mg IVP Q6H PRN PRN Reason: Anxiety Last Admin: 10/10/16 05:30 Dose: 2 mg Metoprolol Tartrate (Lopressor) 25 mg NG BID [facility] Last Admin: 10/16/16 10:01 Dose: 25 mg Pantoprazole Sodium (Protonix Susp) 40 mg PO DAILY [facility] Last Admin: 10/16/16 10:01 Dose: 40 mg - Labs Labs: 10/16/16 06:33 10/16/16 06:33 PT 16.5 SECONDS (9.7-12.2) H 10/09/16 12:53 INR 1.4 10/09/16 12:53 APTT 39 SECONDS (21-34) H 10/09/16 12:53 Assessment and Plan (1) Meningitis Status: Acute (2) Meningitis Status: Acute (3) Acute confusional state Status: Acute (4) Encephalopathy acute Status: Acute (5) Pneumonia Status: Acute (6) Sepsis Status: Acute
--- NOTE | 2016-10-16 17:44 | CP.CCUPN ---
<Miguel Mendez - Last Filed: 10/16/16 17:34> CCU Subjective - Physician Review Subjective (Free Text): 10/16/16 17:34 PGY-1 ICU progress note Pt seen and examined at bedside. Intubated. No overnight events. Critical Care Time Spent (in minutes): 35 CCU Objective - Vital Signs / Intake & Output Vital Signs (Last 4 hours): Vital Signs Temp Pulse Resp BP Pulse Ox 10/16/16 17:00 85 20 118/53 L 94 L 10/16/16 16:00 100.8 F H 86 17 110/54 L 95 10/16/16 15:01 90 20 140/58 L 91 L 10/16/16 15:00 90 21 94 L 10/16/16 14:01 84 19 120/50 L 94 L 10/16/16 14:00 85 21 94 L Intake and Output (Last 8hrs): Intake & Output 10/16/16 10/16/16 10/16/16 06:59 14:59 22:59 Intake Total 481.6 505.1 128 Output Total 390 890 50 Balance 91.6 -384.9 78 Weight 222 lb 10.67 oz Intake: IV 100 Intake, IV Amount 61.6 145.1 8 Right Medial Port 122 8 Internal Jugular Right Proximal Port 61.6 23.1 Internal Jugular Tube Feeding 320 360 120 Output: Urine 390 890 50 Urethral ([place]) 390 890 50 - Physical Exam Head: Positive for: Atraumatic, Normocephalic Pupils: Positive for: Sluggish Mouth: Positive for: Moist Mucous Membranes, Other (secretions noted) Respiratory/Chest: Positive for: Rhonchi, Other (intubated) Cardiovascular: Positive for: Normal S1, S2, Tachycardic Abdomen: Positive for: Normal Bowel Sounds. Negative for: Distention Upper Extremity: Positive for: NORMAL PULSES, Neurovascularly Intact Lower Extremity: Positive for: NORMAL PULSES, Neurovascularly Intact Neurological: Positive for: Other (unresponsive) Skin: Positive for: Warm, Dry - Medications Active Medications: Active Medications Generic Name Dose Route Start Last Admin Trade Name Freq PRN Reason Stop Dose Admin Acetaminophen 650 mg 10/09/16 00:41 10/11/16 02:09 Tylenol 650mg/20.3ml Solution Ud NG 650 mg Q6 PRN Administration FOR TEMP 101*F OR ABOVE Artificial Tears 1 gm 10/11/16 10:30 10/16/16 11:43 Lacri-Lube OU 1 gm BID MINI Administration Enoxaparin Sodium 40 mg 10/09/16 17:30 10/16/16 10:02 Lovenox SC 40 mg DAILY MINI Administration Furosemide 40 mg 10/13/16 10:00 10/16/16 10:02 Lasix IVP 40 mg DAILY MINI Administration Ceftriaxone Sodium 2 gm/ 100 mls @ 100 mls/hr 10/10/16 22:00 10/16/16 10:02 Sodium Chloride IVPB 100 mls/hr Q12 MINI Administration Propofol 1,000 mg in 100 mls @ 3.201 mls/hr 10/12/16 00:25 10/16/16 06:30 Diprivan IV 12 mcg/kg/min .Q24H PRN 7.683 mls/hr TITRATE PER MD ORDER Administration Protocol 5 MCG/KG/MIN Insulin Human Regular 100 unit 100 mls @ 0 mls/hr 10/16/16 13:30 / Sodium Chloride IV .Q0M PRN Protocol Per Protocol Lactulose 20 gm 10/12/16 18:00 10/16/16 11:42 Enulose NG Not Given BID MINI Lorazepam 2 mg 10/09/16 21:06 10/10/16 05:30 Ativan IVP 2 mg Q6H PRN Administration Anxiety Metoprolol Tartrate 25 mg 10/12/16 18:00 10/16/16 10:01 Lopressor NG 25 mg BID MINI Administration Pantoprazole Sodium 40 mg 10/12/16 10:00 10/16/16 10:01 Protonix Susp PO 40 mg DAILY MINI Administration - Patient Studies Lab Studies: Microbiology Studies 10/15/16 17:50 Ova and Parasite Concentrate Exam - Final Stool 10/11/16 08:30 Blood Culture - Final Blood-Venous NO GROWTH AFTER 5 DAYS Gram Stain - Final TEST NOT PERFORMED 10/11/16 08:00 Blood Culture - Final Blood-Venous NO GROWTH AFTER 5 DAYS Gram Stain - Final TEST NOT PERFORMED Lab Studies 10/16/16 10/16/16 10/16/16 Range/Units 16:05 14:44 13:30 WBC (4.8-10.8) K/uL RBC (3.80-5.20) Mil/uL Hgb (11.0-16.0) g/dL Hct (34.0-47.0) % MCV (81.0-99.0) fL MCH (27.0-31.0) pg MCHC (33.0-37.0) g/dL RDW (11.5-14.5) % Plt Count (130-400) K/uL MPV (7.2-11.7) fL Neut % (Auto) (50.0-75.0) % Lymph % (Auto) (20.0-40.0) % [place] % (Auto) (0.0-10.0) % Eos % (Auto) (0.0-4.0) % Baso % (Auto) (0.0-2.0) % Neut # (1.8-7.0) K/uL Lymph # (1.0-4.3) K/uL [place] # (0.0-0.8) K/uL Eos # (0.0-0.7) K/uL Baso # (0.0-0.2) K/uL Puncture Site pCO2 (35-45) mm/Hg pO2 (80-100) mm/Hg HCO3 (21-28) mmol/L ABG pH (7.35-7.45) ABG Total CO2 (22-28) mmol/L ABG O2 Saturation (95-98) % ABG Base Excess (-2.0-3.0) mmol/L ABG Hemoglobin (11.7-17.4) g/dL ABG Carboxyhemoglobin (0.5-1.5) % POC ABG HHb (Measured) (0.0-5.0) % ABG Methemoglobin (0.0-3.0) % Nico Test A-a O2 Difference mm/Hg Respiratory Index Hgb O2 Saturation (95.0-98.0) % Mechanical Rate FiO2 % Tidal Volume PEEP Sodium (132-148) mmol/L Potassium (3.6-5.2) mmol/L Chloride (98-107) mmol/L Carbon Dioxide (22-30) mmol/L Anion Gap (10-20) BUN (7-17) mg/dL Creatinine (0.7-1.2) MG/DL Est GFR ( Amer) Est GFR (Non-Af Amer) POC Glucose (mg/dL) 218 H 247 H 254 H (65-110) mg/dL Random Glucose (65-105) mg/dL Calcium (8.6-10.4) mg/dl Phosphorus (2.5-4.5) mg/dL Magnesium (1.6-2.3) mg/dL Total Bilirubin (0.2-1.3) mg/dL AST (14-36) U/L ALT (9-52) U/L Alkaline Phosphatase (38-126) U/L Total Protein (6.3-8.3) g/dL Albumin (3.5-5.0) g/dL Globulin (2.2-3.9) gm/dL Albumin/Globulin Ratio (1.0-2.1) 10/16/16 10/16/16 10/16/16 Range/Units 12:41 11:17 07:40 WBC (4.8-10.8) K/uL RBC (3.80-5.20) Mil/uL Hgb (11.0-16.0) g/dL Hct (34.0-47.0) % MCV (81.0-99.0) fL MCH (27.0-31.0) pg MCHC (33.0-37.0) g/dL RDW (11.5-14.5) % Plt Count (130-400) K/uL MPV (7.2-11.7) fL Neut % (Auto) (50.0-75.0) % Lymph % (Auto) (20.0-40.0) % [place] % (Auto) (0.0-10.0) % Eos % (Auto) (0.0-4.0) % Baso % (Auto) (0.0-2.0) % Neut # (1.8-7.0) K/uL Lymph # (1.0-4.3) K/uL [place] # (0.0-0.8) K/uL Eos # (0.0-0.7) K/uL Baso # (0.0-0.2) K/uL Puncture Site pCO2 (35-45) mm/Hg pO2 (80-100) mm/Hg HCO3 (21-28) mmol/L ABG pH (7.35-7.45) ABG Total CO2 (22-28) mmol/L ABG O2 Saturation (95-98) % ABG Base Excess (-2.0-3.0) mmol/L ABG Hemoglobin (11.7-17.4) g/dL ABG Carboxyhemoglobin (0.5-1.5) % POC ABG HHb (Measured) (0.0-5.0) % ABG Methemoglobin (0.0-3.0) % Nico Test A-a O2 Difference mm/Hg Respiratory Index Hgb O2 Saturation (95.0-98.0) % Mechanical Rate FiO2 % Tidal Volume PEEP Sodium (132-148) mmol/L Potassium (3.6-5.2) mmol/L Chloride (98-107) mmol/L Carbon Dioxide (22-30) mmol/L Anion Gap (10-20) BUN (7-17) mg/dL Creatinine (0.7-1.2) MG/DL Est GFR ( Amer) Est GFR (Non-Af Amer) POC Glucose (mg/dL) 282 H 300 H 296 H (65-110) mg/dL Random Glucose (65-105) mg/dL Calcium (8.6-10.4) mg/dl Phosphorus (2.5-4.5) mg/dL Magnesium (1.6-2.3) mg/dL Total Bilirubin (0.2-1.3) mg/dL AST (14-36) U/L ALT (9-52) U/L Alkaline Phosphatase (38-126) U/L Total Protein (6.3-8.3) g/dL Albumin (3.5-5.0) g/dL Globulin (2.2-3.9) gm/dL Albumin/Globulin Ratio (1.0-2.1) 10/16/16 10/16/16 10/16/16 Range/Units 06:33 06:33 04:30 WBC 15.2 H (4.8-10.8) K/uL RBC 4.37 (3.80-5.20) Mil/uL Hgb 12.7 (11.0-16.0) g/dL Hct 38.6 (34.0-47.0) % MCV 88.2 (81.0-99.0) fL MCH 29.0 (27.0-31.0) pg MCHC 32.9 L (33.0-37.0) g/dL RDW 13.5 (11.5-14.5) % Plt Count 309 (130-400) K/uL MPV 8.3 (7.2-11.7) fL Neut % (Auto) 74.7 (50.0-75.0) % Lymph % (Auto) 17.9 L (20.0-40.0) % [place] % (Auto) 4.1 (0.0-10.0) % Eos % (Auto) 2.5 (0.0-4.0) % Baso % (Auto) 0.8 (0.0-2.0) % Neut # 11.4 H (1.8-7.0) K/uL Lymph # 2.7 (1.0-4.3) K/uL [place] # 0.6 (0.0-0.8) K/uL Eos # 0.4 (0.0-0.7) K/uL Baso # 0.1 (0.0-0.2) K/uL Puncture Site Rr pCO2 39 (35-45) mm/Hg pO2 72 L (80-100) mm/Hg HCO3 29.4 H (21-28) mmol/L ABG pH 7.49 H (7.35-7.45) ABG Total CO2 30.9 H (22-28) mmol/L ABG O2 Saturation 96.2 (95-98) % ABG Base Excess 5.9 H (-2.0-3.0) mmol/L ABG Hemoglobin 16.0 (11.7-17.4) g/dL ABG Carboxyhemoglobin 1.5 (0.5-1.5) % POC ABG HHb (Measured) 3.7 (0.0-5.0) % ABG Methemoglobin 0.8 (0.0-3.0) % Nico Test Pos A-a O2 Difference 93.0 mm/Hg Respiratory Index 1.3 Hgb O2 Saturation 94.0 L (95.0-98.0) % Mechanical Rate 18 FiO2 30.0 % Tidal Volume 500 PEEP 5 Sodium 146 (132-148) mmol/L Potassium 3.7 (3.6-5.2) mmol/L Chloride 111 H (98-107) mmol/L Carbon Dioxide 28 (22-30) mmol/L Anion Gap 11 (10-20) BUN 35 H (7-17) mg/dL Creatinine 0.6 L (0.7-1.2) MG/DL Est GFR ( Amer) > 60 Est GFR (Non-Af Amer) > 60 POC Glucose (mg/dL) (65-110) mg/dL Random Glucose 308 H (65-105) mg/dL Calcium 9.8 (8.6-10.4) mg/dl Phosphorus 2.7 (2.5-4.5) mg/dL Magnesium 2.3 (1.6-2.3) mg/dL Total Bilirubin 1.1 (0.2-1.3) mg/dL AST 31 (14-36) U/L ALT 35 (9-52) U/L Alkaline Phosphatase 84 (38-126) U/L Total Protein 6.7 (6.3-8.3) g/dL Albumin 2.8 L (3.5-5.0) g/dL Globulin 3.9 (2.2-3.9) gm/dL Albumin/Globulin Ratio 0.7 L (1.0-2.1) 10/16/16 10/16/16 10/15/16 Range/Units 04:15 01:05 19:52 WBC (4.8-10.8) K/uL RBC (3.80-5.20) Mil/uL Hgb (11.0-16.0) g/dL Hct (34.0-47.0) % MCV (81.0-99.0) fL MCH (27.0-31.0) pg MCHC (33.0-37.0) g/dL RDW (11.5-14.5) % Plt Count (130-400) K/uL MPV (7.2-11.7) fL Neut % (Auto) (50.0-75.0) % Lymph % (Auto) (20.0-40.0) % [place] % (Auto) (0.0-10.0) % Eos % (Auto) (0.0-4.0) % Baso % (Auto) (0.0-2.0) % Neut # (1.8-7.0) K/uL Lymph # (1.0-4.3) K/uL [place] # (0.0-0.8) K/uL Eos # (0.0-0.7) K/uL Baso # (0.0-0.2) K/uL Puncture Site pCO2 (35-45) mm/Hg pO2 (80-100) mm/Hg HCO3 (21-28) mmol/L ABG pH (7.35-7.45) ABG Total CO2 (22-28) mmol/L ABG O2 Saturation (95-98) % ABG Base Excess (-2.0-3.0) mmol/L ABG Hemoglobin (11.7-17.4) g/dL ABG Carboxyhemoglobin (0.5-1.5) % POC ABG HHb (Measured) (0.0-5.0) % ABG Methemoglobin (0.0-3.0) % Nico Test A-a O2 Difference mm/Hg Respiratory Index Hgb O2 Saturation (95.0-98.0) % Mechanical Rate FiO2 % Tidal Volume PEEP Sodium (132-148) mmol/L Potassium (3.6-5.2) mmol/L Chloride (98-107) mmol/L Carbon Dioxide (22-30) mmol/L Anion Gap (10-20) BUN (7-17) mg/dL Creatinine (0.7-1.2) MG/DL Est GFR ( Amer) Est GFR (Non-Af Amer) POC Glucose (mg/dL) 309 H 309 H 277 H (65-110) mg/dL Random Glucose (65-105) mg/dL Calcium (8.6-10.4) mg/dl Phosphorus (2.5-4.5) mg/dL Magnesium (1.6-2.3) mg/dL Total Bilirubin (0.2-1.3) mg/dL AST (14-36) U/L ALT (9-52) U/L Alkaline Phosphatase (38-126) U/L Total Protein (6.3-8.3) g/dL Albumin (3.5-5.0) g/dL Globulin (2.2-3.9) gm/dL Albumin/Globulin Ratio (1.0-2.1) Laboratory Results - last 24 hr 0510/16/16 10/16/16 19:52 01:05 04:15 WBC RBC Hgb Hct MCV MCH MCHC RDW Plt Count MPV Neut % (Auto) Lymph % (Auto) [place] % (Auto) Eos % (Auto) Baso % (Auto) Neut # Lymph # [place] # Eos # Baso # Puncture Site pCO2 pO2 HCO3 ABG pH ABG Total CO2 ABG O2 Saturation ABG Base Excess ABG Hemoglobin ABG Carboxyhemoglobin POC ABG HHb (Measured) ABG Methemoglobin Nico Test A-a O2 Difference Respiratory Index Hgb O2 Saturation Mechanical Rate FiO2 Tidal Volume PEEP Sodium Potassium Chloride Carbon Dioxide Anion Gap BUN Creatinine Est GFR ( Amer) Est GFR (Non-Af Amer) POC Glucose (mg/dL) 277 H 309 H 309 H Random Glucose Calcium Phosphorus Magnesium Total Bilirubin AST ALT Alkaline Phosphatase Total Protein Albumin Globulin Albumin/Globulin Ratio 10/16/16 10/16/16 10/16/16 04:30 06:33 06:33 WBC 15.2 H RBC 4.37 Hgb 12.7 Hct 38.6 MCV 88.2 MCH 29.0 MCHC 32.9 L RDW 13.5 Plt Count 309 MPV 8.3 Neut % (Auto) 74.7 Lymph % (Auto) 17.9 L [place] % (Auto) 4.1 Eos % (Auto) 2.5 Baso % (Auto) 0.8 Neut # 11.4 H Lymph # 2.7 [place] # 0.6 Eos # 0.4 Baso # 0.1 Puncture Site Rr pCO2 39 pO2 72 L HCO3 29.4 H ABG pH 7.49 H ABG Total CO2 30.9 H ABG O2 Saturation 96.2 ABG Base Excess 5.9 H ABG Hemoglobin 16.0 ABG Carboxyhemoglobin 1.5 POC ABG HHb (Measured) 3.7 ABG Methemoglobin 0.8 Nico Test Pos A-a O2 Difference 93.0 Respiratory Index 1.3 Hgb O2 Saturation 94.0 L Mechanical Rate 18 FiO2 30.0 Tidal Volume 500 PEEP 5 Sodium 146 Potassium 3.7 Chloride 111 H Carbon Dioxide 28 Anion Gap 11 BUN 35 H Creatinine 0.6 L Est GFR ( Amer) > 60 Est GFR (Non-Af Amer) > 60 POC Glucose (mg/dL) Random Glucose 308 H Calcium 9.8 Phosphorus 2.7 Magnesium 2.3 Total Bilirubin 1.1 AST 31 ALT 35 Alkaline Phosphatase 84 Total Protein 6.7 Albumin 2.8 L Globulin 3.9 Albumin/Globulin Ratio 0.7 L 10/16/16 10/16/16 10/16/16 07:40 11:17 12:41 WBC RBC Hgb Hct MCV MCH MCHC RDW Plt Count MPV Neut % (Auto) Lymph % (Auto) [place] % (Auto) Eos % (Auto) Baso % (Auto) Neut # Lymph # [place] # Eos # Baso # Puncture Site pCO2 pO2 HCO3 ABG pH ABG Total CO2 ABG O2 Saturation ABG Base Excess ABG Hemoglobin ABG Carboxyhemoglobin POC ABG HHb (Measured) ABG Methemoglobin Nico Test A-a O2 Difference Respiratory Index Hgb O2 Saturation Mechanical Rate FiO2 Tidal Volume PEEP Sodium Potassium Chloride Carbon Dioxide Anion Gap BUN Creatinine Est GFR ( Amer) Est GFR (Non-Af Amer) POC Glucose (mg/dL) 296 H 300 H 282 H Random Glucose Calcium Phosphorus Magnesium Total Bilirubin AST ALT Alkaline Phosphatase Total Protein Albumin Globulin Albumin/Globulin Ratio 10/16/16 10/16/16 10/16/16 13:30 14:44 16:05 WBC RBC Hgb Hct MCV MCH MCHC RDW Plt Count MPV Neut % (Auto) Lymph % (Auto) [place] % (Auto) Eos % (Auto) Baso % (Auto) Neut # Lymph # [place] # Eos # Baso # Puncture Site pCO2 pO2 HCO3 ABG pH ABG Total CO2 ABG O2 Saturation ABG Base Excess ABG Hemoglobin ABG Carboxyhemoglobin POC ABG HHb (Measured) ABG Methemoglobin Nico Test A-a O2 Difference Respiratory Index Hgb O2 Saturation Mechanical Rate FiO2 Tidal Volume PEEP Sodium Potassium Chloride Carbon Dioxide Anion Gap BUN Creatinine Est GFR ( Amer) Est GFR (Non-Af Amer) POC Glucose (mg/dL) 254 H 247 H 218 H Random Glucose Calcium Phosphorus Magnesium Total Bilirubin AST ALT Alkaline Phosphatase Total Protein Albumin Globulin Albumin/Globulin Ratio Fingerstick Blood Sugar Results: 218 Review of Systems - Review of Systems Systems not reviewed;Unavailable: Intubated Assessment/Plan - Assessment and Plan (Free Text) Assessment: 61F with severe sepsis/MSOF likely 2/2 meningitis (most likely S. pneumo); s. pneumo bacteremia and poss pna; acute hypoxic resp failure, intubated Plan: Neuro: Will wean sedation today to assess neuro status Neuro following Maintain serm Na 145-150 MRI when possible Latest CT head shows concern for multifocal ischemia Cardiovascular: Hemodynamically stable. carotid duplex - unable to perform test Monitor Pulmonary: Intubated. Saturating well. Continue rocephin Gastrointestinal: No acute issues, on tube feeds, tolerating well. Hematology: No acute issues Endocrine: Blood sugars still uncontrolled Restarted insulin drip accucheck q1h Renal: Monitor electrolytes Strict I/O - good urine output Infectious Disease: Likely strep pneumo meningitis - CSF cultures negative (drawn after abx initiation) Continue Rocephin ID following Pt received 4 days of high dose steroids, d/c'ed now GI Prophylaxis: Protonix DVT Prophylaxis: Lovenox <Matteo Almanzar S - Last Filed: 10/16/16 18:32> CCU Objective - Vital Signs / Intake & Output Vital Signs (Last 4 hours): Vital Signs Temp Pulse Resp BP Pulse Ox 10/16/16 18:07 149/70 10/16/16 18:01 90 18 149/70 91 L 10/16/16 18:00 90 16 95 10/16/16 17:00 85 20 118/53 L 94 L 10/16/16 16:00 100.8 F H 86 17 110/54 L 95 10/16/16 15:01 90 20 140/58 L 91 L 10/16/16 15:00 90 21 94 L Intake and Output (Last 8hrs): Intake & Output 10/16/16 10/16/16 10/16/16 06:59 14:59 22:59 Intake Total 481.6 505.1 174 Output Total 390 890 185 Balance 91.6 -384.9 -11 Weight 222 lb 10.67 oz Intake: IV 100 Intake, IV Amount 61.6 145.1 14 Right Medial Port 122 14 Internal Jugular Right Proximal Port 61.6 23.1 Internal Jugular Tube Feeding 320 360 160 Output: Urine 390 890 185 Urethral ([place]) 390 890 185 - Medications Active Medications: Active Medications Generic Name Dose Route Start Last Admin Trade Name Freq PRN Reason Stop Dose Admin Acetaminophen 650 mg 10/09/16 00:41 10/11/16 02:09 Tylenol 650mg/20.3ml Solution Ud NG 650 mg Q6 PRN Administration FOR TEMP 101*F OR ABOVE Artificial Tears 1 gm 10/11/16 10:30 10/16/16 18:08 Lacri-Lube OU 1 gm BID MINI Administration Enoxaparin Sodium 40 mg 10/09/16 17:30 10/16/16 10:02 Lovenox SC 40 mg DAILY MINI Administration Furosemide 40 mg 10/13/16 10:00 10/16/16 10:02 Lasix IVP 40 mg DAILY MINI Administration Ceftriaxone Sodium 2 gm/ 100 mls @ 100 mls/hr 10/10/16 22:00 10/16/16 10:02 Sodium Chloride IVPB 100 mls/hr Q12 MINI Administration Propofol 1,000 mg in 100 mls @ 3.201 mls/hr 10/12/16 00:25 10/16/16 06:30 Diprivan IV 12 mcg/kg/min .Q24H PRN 7.683 mls/hr TITRATE PER MD ORDER Administration Protocol 5 MCG/KG/MIN Insulin Human Regular 100 unit 100 mls @ 0 mls/hr 10/16/16 13:30 / Sodium Chloride IV .Q0M PRN Protocol Per Protocol Lactulose 20 gm 10/12/16 18:00 10/16/16 18:00 Enulose NG Not Given BID MINI Lorazepam 2 mg 10/09/16 21:06 10/10/16 05:30 Ativan IVP 2 mg Q6H PRN Administration Anxiety Metoprolol Tartrate 25 mg 10/12/16 18:00 10/16/16 18:07 Lopressor NG 25 mg BID MINI Administration Pantoprazole Sodium 40 mg 10/12/16 10:00 10/16/16 10:01 Protonix Susp PO 40 mg DAILY MINI Administration - Patient Studies Lab Studies: Microbiology Studies 10/15/16 17:50 Ova and Parasite Concentrate Exam - Final Stool 10/11/16 08:30 Blood Culture - Final Blood-Venous NO GROWTH AFTER 5 DAYS Gram Stain - Final TEST NOT PERFORMED 10/11/16 08:00 Blood Culture - Final Blood-Venous NO GROWTH AFTER 5 DAYS Gram Stain - Final TEST NOT PERFORMED Lab Studies 10/16/16 10/16/16 10/16/16 Range/Units 17:54 16:05 14:44 WBC (4.8-10.8) K/uL RBC (3.80-5.20) Mil/uL Hgb (11.0-16.0) g/dL Hct (34.0-47.0) % MCV (81.0-99.0) fL MCH (27.0-31.0) pg MCHC (33.0-37.0) g/dL RDW (11.5-14.5) % Plt Count (130-400) K/uL MPV (7.2-11.7) fL Neut % (Auto) (50.0-75.0) % Lymph % (Auto) (20.0-40.0) % [place] % (Auto) (0.0-10.0) % Eos % (Auto) (0.0-4.0) % Baso % (Auto) (0.0-2.0) % Neut # (1.8-7.0) K/uL Lymph # (1.0-4.3) K/uL [place] # (0.0-0.8) K/uL Eos # (0.0-0.7) K/uL Baso # (0.0-0.2) K/uL Puncture Site pCO2 (35-45) mm/Hg pO2 (80-100) mm/Hg HCO3 (21-28) mmol/L ABG pH (7.35-7.45) ABG Total CO2 (22-28) mmol/L ABG O2 Saturation (95-98) % ABG Base Excess (-2.0-3.0) mmol/L ABG Hemoglobin (11.7-17.4) g/dL ABG Carboxyhemoglobin (0.5-1.5) % POC ABG HHb (Measured) (0.0-5.0) % ABG Methemoglobin (0.0-3.0) % Nico Test A-a O2 Difference mm/Hg Respiratory Index Hgb O2 Saturation (95.0-98.0) % Mechanical Rate FiO2 % Tidal Volume PEEP Sodium (132-148) mmol/L Potassium (3.6-5.2) mmol/L Chloride (98-107) mmol/L Carbon Dioxide (22-30) mmol/L Anion Gap (10-20) BUN (7-17) mg/dL Creatinine (0.7-1.2) MG/DL Est GFR ( Amer) Est GFR (Non-Af Amer) POC Glucose (mg/dL) 168 H 218 H 247 H (65-110) mg/dL Random Glucose (65-105) mg/dL Calcium (8.6-10.4) mg/dl Phosphorus (2.5-4.5) mg/dL Magnesium (1.6-2.3) mg/dL Total Bilirubin (0.2-1.3) mg/dL AST (14-36) U/L ALT (9-52) U/L Alkaline Phosphatase (38-126) U/L Total Protein (6.3-8.3) g/dL Albumin (3.5-5.0) g/dL Globulin (2.2-3.9) gm/dL Albumin/Globulin Ratio (1.0-2.1) 10/16/16 10/16/16 10/16/16 Range/Units 13:30 12:41 11:17 WBC (4.8-10.8) K/uL RBC (3.80-5.20) Mil/uL Hgb (11.0-16.0) g/dL Hct (34.0-47.0) % MCV (81.0-99.0) fL MCH (27.0-31.0) pg MCHC (33.0-37.0) g/dL RDW (11.5-14.5) % Plt Count (130-400) K/uL MPV (7.2-11.7) fL Neut % (Auto) (50.0-75.0) % Lymph % (Auto) (20.0-40.0) % [place] % (Auto) (0.0-10.0) % Eos % (Auto) (0.0-4.0) % Baso % (Auto) (0.0-2.0) % Neut # (1.8-7.0) K/uL Lymph # (1.0-4.3) K/uL [place] # (0.0-0.8) K/uL Eos # (0.0-0.7) K/uL Baso # (0.0-0.2) K/uL Puncture Site pCO2 (35-45) mm/Hg pO2 (80-100) mm/Hg HCO3 (21-28) mmol/L ABG pH (7.35-7.45) ABG Total CO2 (22-28) mmol/L ABG O2 Saturation (95-98) % ABG Base Excess (-2.0-3.0) mmol/L ABG Hemoglobin (11.7-17.4) g/dL ABG Carboxyhemoglobin (0.5-1.5) % POC ABG HHb (Measured) (0.0-5.0) % ABG Methemoglobin (0.0-3.0) % Nico Test A-a O2 Difference mm/Hg Respiratory Index Hgb O2 Saturation (95.0-98.0) % Mechanical Rate FiO2 % Tidal Volume PEEP Sodium (132-148) mmol/L Potassium (3.6-5.2) mmol/L Chloride (98-107) mmol/L Carbon Dioxide (22-30) mmol/L Anion Gap (10-20) BUN (7-17) mg/dL Creatinine (0.7-1.2) MG/DL Est GFR ( Amer) Est GFR (Non-Af Amer) POC Glucose (mg/dL) 254 H 282 H 300 H (65-110) mg/dL Random Glucose (65-105) mg/dL Calcium (8.6-10.4) mg/dl Phosphorus (2.5-4.5) mg/dL Magnesium (1.6-2.3) mg/dL Total Bilirubin (0.2-1.3) mg/dL AST (14-36) U/L ALT (9-52) U/L Alkaline Phosphatase (38-126) U/L Total Protein (6.3-8.3) g/dL Albumin (3.5-5.0) g/dL Globulin (2.2-3.9) gm/dL Albumin/Globulin Ratio (1.0-2.1) 10/16/16 10/16/16 10/16/16 Range/Units 07:40 06:33 06:33 WBC 15.2 H (4.8-10.8) K/uL RBC 4.37 (3.80-5.20) Mil/uL Hgb 12.7 (11.0-16.0) g/dL Hct 38.6 (34.0-47.0) % MCV 88.2 (81.0-99.0) fL MCH 29.0 (27.0-31.0) pg MCHC 32.9 L (33.0-37.0) g/dL RDW 13.5 (11.5-14.5) % Plt Count 309 (130-400) K/uL MPV 8.3 (7.2-11.7) fL Neut % (Auto) 74.7 (50.0-75.0) % Lymph % (Auto) 17.9 L (20.0-40.0) % [place] % (Auto) 4.1 (0.0-10.0) % Eos % (Auto) 2.5 (0.0-4.0) % Baso % (Auto) 0.8 (0.0-2.0) % Neut # 11.4 H (1.8-7.0) K/uL Lymph # 2.7 (1.0-4.3) K/uL [place] # 0.6 (0.0-0.8) K/uL Eos # 0.4 (0.0-0.7) K/uL Baso # 0.1 (0.0-0.2) K/uL Puncture Site pCO2 (35-45) mm/Hg pO2 (80-100) mm/Hg HCO3 (21-28) mmol/L ABG pH (7.35-7.45) ABG Total CO2 (22-28) mmol/L ABG O2 Saturation (95-98) % ABG Base Excess (-2.0-3.0) mmol/L ABG Hemoglobin (11.7-17.4) g/dL ABG Carboxyhemoglobin (0.5-1.5) % POC ABG HHb (Measured) (0.0-5.0) % ABG Methemoglobin (0.0-3.0) % Nico Test A-a O2 Difference mm/Hg Respiratory Index Hgb O2 Saturation (95.0-98.0) % Mechanical Rate FiO2 % Tidal Volume PEEP Sodium 146 (132-148) mmol/L Potassium 3.7 (3.6-5.2) mmol/L Chloride 111 H (98-107) mmol/L Carbon Dioxide 28 (22-30) mmol/L Anion Gap 11 (10-20) BUN 35 H (7-17) mg/dL Creatinine 0.6 L (0.7-1.2) MG/DL Est GFR ( Amer) > 60 Est GFR (Non-Af Amer) > 60 POC Glucose (mg/dL) 296 H (65-110) mg/dL Random Glucose 308 H (65-105) mg/dL Calcium 9.8 (8.6-10.4) mg/dl Phosphorus 2.7 (2.5-4.5) mg/dL Magnesium 2.3 (1.6-2.3) mg/dL Total Bilirubin 1.1 (0.2-1.3) mg/dL AST 31 (14-36) U/L ALT 35 (9-52) U/L Alkaline Phosphatase 84 (38-126) U/L Total Protein 6.7 (6.3-8.3) g/dL Albumin 2.8 L (3.5-5.0) g/dL Globulin 3.9 (2.2-3.9) gm/dL Albumin/Globulin Ratio 0.7 L (1.0-2.1) 10/16/16 10/16/16 10/16/16 Range/Units 04:30 04:15 01:05 WBC (4.8-10.8) K/uL RBC (3.80-5.20) Mil/uL Hgb (11.0-16.0) g/dL Hct (34.0-47.0) % MCV (81.0-99.0) fL MCH (27.0-31.0) pg MCHC (33.0-37.0) g/dL RDW (11.5-14.5) % Plt Count (130-400) K/uL MPV (7.2-11.7) fL Neut % (Auto) (50.0-75.0) % Lymph % (Auto) (20.0-40.0) % [place] % (Auto) (0.0-10.0) % Eos % (Auto) (0.0-4.0) % Baso % (Auto) (0.0-2.0) % Neut # (1.8-7.0) K/uL Lymph # (1.0-4.3) K/uL [place] # (0.0-0.8) K/uL Eos # (0.0-0.7) K/uL Baso # (0.0-0.2) K/uL Puncture Site Rr pCO2 39 (35-45) mm/Hg pO2 72 L (80-100) mm/Hg HCO3 29.4 H (21-28) mmol/L ABG pH 7.49 H (7.35-7.45) ABG Total CO2 30.9 H (22-28) mmol/L ABG O2 Saturation 96.2 (95-98) % ABG Base Excess 5.9 H (-2.0-3.0) mmol/L ABG Hemoglobin 16.0 (11.7-17.4) g/dL ABG Carboxyhemoglobin 1.5 (0.5-1.5) % POC ABG HHb (Measured) 3.7 (0.0-5.0) % ABG Methemoglobin 0.8 (0.0-3.0) % Nico Test Pos A-a O2 Difference 93.0 mm/Hg Respiratory Index 1.3 Hgb O2 Saturation 94.0 L (95.0-98.0) % Mechanical Rate 18 FiO2 30.0 % Tidal Volume 500 PEEP 5 Sodium (132-148) mmol/L Potassium (3.6-5.2) mmol/L Chloride (98-107) mmol/L Carbon Dioxide (22-30) mmol/L Anion Gap (10-20) BUN (7-17) mg/dL Creatinine (0.7-1.2) MG/DL Est GFR ( Amer) Est GFR (Non-Af Amer) POC Glucose (mg/dL) 309 H 309 H (65-110) mg/dL Random Glucose (65-105) mg/dL Calcium (8.6-10.4) mg/dl Phosphorus (2.5-4.5) mg/dL Magnesium (1.6-2.3) mg/dL Total Bilirubin (0.2-1.3) mg/dL AST (14-36) U/L ALT (9-52) U/L Alkaline Phosphatase (38-126) U/L Total Protein (6.3-8.3) g/dL Albumin (3.5-5.0) g/dL Globulin (2.2-3.9) gm/dL Albumin/Globulin Ratio (1.0-2.1) 10/15/16 Range/Units 19:52 WBC (4.8-10.8) K/uL RBC (3.80-5.20) Mil/uL Hgb (11.0-16.0) g/dL Hct (34.0-47.0) % MCV (81.0-99.0) fL MCH (27.0-31.0) pg MCHC (33.0-37.0) g/dL RDW (11.5-14.5) % Plt Count (130-400) K/uL MPV (7.2-11.7) fL Neut % (Auto) (50.0-75.0) % Lymph % (Auto) (20.0-40.0) % [place] % (Auto) (0.0-10.0) % Eos % (Auto) (0.0-4.0) % Baso % (Auto) (0.0-2.0) % Neut # (1.8-7.0) K/uL Lymph # (1.0-4.3) K/uL [place] # (0.0-0.8) K/uL Eos # (0.0-0.7) K/uL Baso # (0.0-0.2) K/uL Puncture Site pCO2 (35-45) mm/Hg pO2 (80-100) mm/Hg HCO3 (21-28) mmol/L ABG pH (7.35-7.45) ABG Total CO2 (22-28) mmol/L ABG O2 Saturation (95-98) % ABG Base Excess (-2.0-3.0) mmol/L ABG Hemoglobin (11.7-17.4) g/dL ABG Carboxyhemoglobin (0.5-1.5) % POC ABG HHb (Measured) (0.0-5.0) % ABG Methemoglobin (0.0-3.0) % Nico Test A-a O2 Difference mm/Hg Respiratory Index Hgb O2 Saturation (95.0-98.0) % Mechanical Rate FiO2 % Tidal Volume PEEP Sodium (132-148) mmol/L Potassium (3.6-5.2) mmol/L Chloride (98-107) mmol/L Carbon Dioxide (22-30) mmol/L Anion Gap (10-20) BUN (7-17) mg/dL Creatinine (0.7-1.2) MG/DL Est GFR ( Amer) Est GFR (Non-Af Amer) POC Glucose (mg/dL) 277 H (65-110) mg/dL Random Glucose (65-105) mg/dL Calcium (8.6-10.4) mg/dl Phosphorus (2.5-4.5) mg/dL Magnesium (1.6-2.3) mg/dL Total Bilirubin (0.2-1.3) mg/dL AST (14-36) U/L ALT (9-52) U/L Alkaline Phosphatase (38-126) U/L Total Protein (6.3-8.3) g/dL Albumin (3.5-5.0) g/dL Globulin (2.2-3.9) gm/dL Albumin/Globulin Ratio (1.0-2.1) Laboratory Results - last 24 hr 10/15/16 10/16/16 10/16/16 19:52 01:05 04:15 WBC RBC Hgb Hct MCV MCH MCHC RDW Plt Count MPV Neut % (Auto) Lymph % (Auto) [place] % (Auto) Eos % (Auto) Baso % (Auto) Neut # Lymph # [place] # Eos # Baso # Puncture Site pCO2 pO2 HCO3 ABG pH ABG Total CO2 ABG O2 Saturation ABG Base Excess ABG Hemoglobin ABG Carboxyhemoglobin POC ABG HHb (Measured) ABG Methemoglobin [place] Test A-a O2 Difference Respiratory Index Hgb O2 Saturation Mechanical Rate FiO2 Tidal Volume PEEP Sodium Potassium Chloride Carbon Dioxide Anion Gap BUN Creatinine Est GFR ( Amer) Est GFR (Non-Af Amer) POC Glucose (mg/dL) 277 H 309 H 309 H Random Glucose Calcium Phosphorus Magnesium Total Bilirubin AST ALT Alkaline Phosphatase Total Protein Albumin Globulin Albumin/Globulin Ratio 10/16/16 10/16/16 10/16/16 04:30 06:33 06:33 WBC 15.2 H RBC 4.37 Hgb 12.7 Hct 38.6 MCV 88.2 MCH 29.0 MCHC 32.9 L RDW 13.5 Plt Count 309 MPV 8.3 Neut % (Auto) 74.7 Lymph % (Auto) 17.9 L [place] % (Auto) 4.1 Eos % (Auto) 2.5 Baso % (Auto) 0.8 Neut # 11.4 H Lymph # 2.7 [place] # 0.6 Eos # 0.4 Baso # 0.1 Puncture Site Rr pCO2 39 pO2 72 L HCO3 29.4 H ABG pH 7.49 H ABG Total CO2 30.9 H ABG O2 Saturation 96.2 ABG Base Excess 5.9 H ABG Hemoglobin 16.0 ABG Carboxyhemoglobin 1.5 POC ABG HHb (Measured) 3.7 ABG Methemoglobin 0.8 Nico Test Pos A-a O2 Difference 93.0 Respiratory Index 1.3 Hgb O2 Saturation 94.0 L Mechanical Rate 18 FiO2 30.0 Tidal Volume 500 PEEP 5 Sodium 146 Potassium 3.7 Chloride 111 H Carbon Dioxide 28 Anion Gap 11 BUN 35 H Creatinine 0.6 L Est GFR ( Amer) > 60 Est GFR (Non-Af Amer) > 60 POC Glucose (mg/dL) Random Glucose 308 H Calcium 9.8 Phosphorus 2.7 Magnesium 2.3 Total Bilirubin 1.1 AST 31 ALT 35 Alkaline Phosphatase 84 Total Protein 6.7 Albumin 2.8 L Globulin 3.9 Albumin/Globulin Ratio 0.7 L 10/16/16 10/16/16 10/16/16 07:40 11:17 12:41 WBC RBC Hgb Hct MCV MCH MCHC RDW Plt Count MPV Neut % (Auto) Lymph % (Auto) [place] % (Auto) Eos % (Auto) Baso % (Auto) Neut # Lymph # [place] # Eos # Baso # Puncture Site pCO2 pO2 HCO3 ABG pH ABG Total CO2 ABG O2 Saturation ABG Base Excess ABG Hemoglobin ABG Carboxyhemoglobin POC ABG HHb (Measured) ABG Methemoglobin [place] Test A-a O2 Difference Respiratory Index Hgb O2 Saturation Mechanical Rate FiO2 Tidal Volume PEEP Sodium Potassium Chloride Carbon Dioxide Anion Gap BUN Creatinine Est GFR ( Amer) Est GFR (Non-Af Amer) POC Glucose (mg/dL) 296 H 300 H 282 H Random Glucose Calcium Phosphorus Magnesium Total Bilirubin AST ALT Alkaline Phosphatase Total Protein Albumin Globulin Albumin/Globulin Ratio 10/16/16 10/16/16 10/16/16 13:30 14:44 16:05 WBC RBC Hgb Hct MCV MCH MCHC RDW Plt Count MPV Neut % (Auto) Lymph % (Auto) [place] % (Auto) Eos % (Auto) Baso % (Auto) Neut # Lymph # [place] # Eos # Baso # Puncture Site pCO2 pO2 HCO3 ABG pH ABG Total CO2 ABG O2 Saturation ABG Base Excess ABG Hemoglobin ABG Carboxyhemoglobin POC ABG HHb (Measured) ABG Methemoglobin [place]ico Test A-a O2 Difference Respiratory Index Hgb O2 Saturation Mechanical Rate FiO2 Tidal Volume PEEP Sodium Potassium Chloride Carbon Dioxide Anion Gap BUN Creatinine Est GFR ( Amer) Est GFR (Non-Af Amer) POC Glucose (mg/dL) 254 H 247 H 218 H Random Glucose Calcium Phosphorus Magnesium Total Bilirubin AST ALT Alkaline Phosphatase Total Protein Albumin Globulin Albumin/Globulin Ratio 10/16/16 17:54 WBC RBC Hgb Hct MCV MCH MCHC RDW Plt Count MPV Neut % (Auto) Lymph % (Auto) [place] % (Auto) Eos % (Auto) Baso % (Auto) Neut # Lymph # [place] # Eos # Baso # Puncture Site pCO2 pO2 HCO3 ABG pH ABG Total CO2 ABG O2 Saturation ABG Base Excess ABG Hemoglobin ABG Carboxyhemoglobin POC ABG HHb (Measured) ABG Methemoglobin [place] Test A-a O2 Difference Respiratory Index Hgb O2 Saturation Mechanical Rate FiO2 Tidal Volume PEEP Sodium Potassium Chloride Carbon Dioxide Anion Gap BUN Creatinine Est GFR ( Amer) Est GFR (Non-Af Amer) POC Glucose (mg/dL) 168 H Random Glucose Calcium Phosphorus Magnesium Total Bilirubin AST ALT Alkaline Phosphatase Total Protein Albumin Globulin Albumin/Globulin Ratio Attending/Attestation - Attestation I have personally seen and examined this patient.: Yes I have fully participated in the care of the patient.: Yes I have reviewed all pertinent clinical information: Yes Notes (Text): 10/16/16 18:31 Patient seen and examined in the intensive care unit. It is discussed with house staff in the morning rounds. Patient is more responsive off sedation Continue antibiotics as per infectious disease Continue vent management and CPAP as tolerated
[2016-10-17 04:35] LABS: ABG ALLEN TEST POS; ABG MECHANICAL RATE 12; ATERIAL BLOOD GAS PEEP 5; CARBOXYHEMOGLOBIN 1.8 % (0.5-1.5); DRAW SITE LR; HHB 2.5 % (0.0-5.0); METHEMOGLOBIN 0.7 % (0.0-3.0)
[2016-10-17 06:41] LABS: CHLORIDE 111 mmol/L (98-107); POTASSIUM 3.9 mmol/L (3.6-5.2); SODIUM 150 mmol/L (132-148)
[2016-10-17 06:42] LABS: BASO # 0.1 K/uL (0.0-0.2); BASO % 0.4 % (0.0-2.0); EOS # 0.3 K/uL (0.0-0.7); EOS % 2.1 % (0.0-4.0); HEMATOCRIT 40.4 % (34.0-47.0); LYMPH # 2.5 K/uL (1.0-4.3); LYMPH % 16.9 % (20.0-40.0); MEAN CELL VOLUME 89.4 fL (81.0-99.0); MEAN CORPUSCULAR HEMOGLOBIN 28.7 pg (27.0-31.0); MEAN CORPUSCULAR HGB CONC 32.1 g/dL (33.0-37.0); MEAN PLATELET VOLUME 8.5 fL (7.2-11.7); MONO # 0.6 K/uL (0.0-0.8); MONO % 4.2 % (0.0-10.0); NRBC % 0.1 % (0.0-2.0); RED CELL DISTRIBUTION WIDTH 13.4 % (11.5-14.5); WHITE BLOOD COUNT 14.7 K/uL (4.8-10.8)
[2016-10-17 06:43] LABS: GFR AFRICAN-AMERICAN > 60
[2016-10-17 06:44] LABS: ALB/GLOB RATIO 0.8 (1.0-2.1); ALKALINE PHOSPHATASE 80 U/L (38-126); ALT/SGPT 33 U/L (9-52); AST/SGOT 33 U/L (14-36); BILIRUBIN,TOTAL 0.8 mg/dL (0.2-1.3); BLOOD UREA NITROGEN 33 mg/dL (7-17); CALCIUM 9.9 mg/dl (8.6-10.4); CARBON DIOXIDE 31 mmol/L (22-30); GLUCOSE,RANDOM 222 mg/dL (65-105); TOTAL PROTEIN 6.9 g/dL (6.3-8.3)
[2016-10-17 06:45] LABS: MAGNESIUM 2.3 mg/dL (1.6-2.3)
--- NOTE | 2016-10-17 08:17 | RAD ---
Chest x-ray single frontal view History: Pneumonia. Comparison: None available. Findings: Lines and tubes stable position. Moderate venous congestion. Patchy consolidative changes at both lung bases; right greater than left. Small left pleural effusion. Biapical pleural thickening with upper lobe granulomatous changes. Cardiomegaly. Elevated left hemidiaphragm. Degenerative changes in the spine and shoulders. Impression: Moderate venous congestion. Patchy consolidative changes at both lung bases; right greater than left. Small left pleural effusion. Biapical pleural thickening with upper lobe granulomatous changes. Cardiomegaly.
[2016-10-17] MEDS: cefTRIAXone 2 GM in Sodium Chloride 0.9% 100 ML IVPB SCH ×2 (10:22→21:40)
[2016-10-17] MEDS: Enoxaparin 40 mg Syringe SC SCH (10:24)
[2016-10-17] MEDS: Pantoprazole 40 mg Susp UD PO SCH (10:24)
[2016-10-17] MEDS: Insulin Detemir 100 units/ml Vial (Levemir) SC SCH ×2 (10:25→21:34)
[2016-10-17] MEDS: White Petrolatum/Mineral Oil Ophth Oint(3.5 gm) OU SCH ×3 (10:25→18:45)
--- NOTE | 2016-10-17 12:47 | CP.CCUPN ---
<Miguel Mendez - Last Filed: 10/17/16 12:40> CCU Subjective - Physician Review Subjective (Free Text): 10/17/16 12:40 PGY-1 ICU progress note Pt seen and examined at bedside. Intubated. No overnight events. Pt opening eyes today Critical Care Time Spent (in minutes): 35 CCU Objective - Vital Signs / Intake & Output Vital Signs (Last 4 hours): Vital Signs BP 10/17/16 10:24 174/73 H 10/17/16 10:23 174/73 H Intake and Output (Last 8hrs): Intake & Output 10/16/16 10/17/16 10/17/16 22:59 06:59 14:59 Intake Total 442 336 88 Output Total 380 445 100 Balance 62 -109 -12 Weight 231 lb 4 oz Intake: Intake, IV Amount 122 16 8 Right Medial Port 22 16 8 Internal Jugular Right Proximal Port 100 Internal Jugular Tube Feeding 320 320 80 Output: Urine 380 445 100 Urethral ([place]) 380 445 100 - Physical Exam Head: Positive for: Atraumatic, Normocephalic Pupils: Positive for: Sluggish Mouth: Positive for: Moist Mucous Membranes Respiratory/Chest: Positive for: Rhonchi, Other (intubated) Cardiovascular: Positive for: Regular Rate and Rhythm, Normal S1, S2 Abdomen: Positive for: Normal Bowel Sounds. Negative for: Distention Upper Extremity: Positive for: NORMAL PULSES, Neurovascularly Intact Lower Extremity: Positive for: NORMAL PULSES, Neurovascularly Intact Neurological: Positive for: Other (unresponsive but is opening eyes now) Skin: Positive for: Warm, Dry - Medications Active Medications: Active Medications Generic Name Dose Route Start Last Admin Trade Name Freq PRN Reason Stop Dose Admin Acetaminophen 650 mg 10/09/16 00:41 10/11/16 02:09 Tylenol 650mg/20.3ml Solution Ud NG 650 mg Q6 PRN Administration FOR TEMP 101*F OR ABOVE Artificial Tears 1 gm 10/11/16 10:30 10/17/16 10:34 Lacri-Lube OU 1 gm BID MINI Administration Enoxaparin Sodium 40 mg 10/09/16 17:30 10/17/16 10:24 Lovenox SC 40 mg DAILY MINI Administration Furosemide 40 mg 10/13/16 10:00 10/17/16 10:23 Lasix IVP 40 mg DAILY MINI Administration Ceftriaxone Sodium 2 gm/ 100 mls @ 100 mls/hr 10/10/16 22:00 10/17/16 10:22 Sodium Chloride IVPB 100 mls/hr Q12 MINI Administration Propofol 1,000 mg in 100 mls @ 3.201 mls/hr 10/12/16 00:25 10/16/16 06:30 Diprivan IV 12 mcg/kg/min .Q24H PRN 7.683 mls/hr TITRATE PER MD ORDER Administration Protocol 5 MCG/KG/MIN Insulin Aspart 0 unit 10/17/16 12:00 Novolog SC Q6 MINI Protocol Insulin Detemir 30 unit 10/17/16 10:00 10/17/16 10:25 Levemir SC 30 unit Q12H MINI Administration Lactulose 20 gm 10/12/16 18:00 10/17/16 10:23 Enulose NG 20 gm BID MINI Administration Lorazepam 2 mg 10/09/16 21:06 10/10/16 05:30 Ativan IVP 2 mg Q6H PRN Administration Anxiety Metoprolol Tartrate 25 mg 10/12/16 18:00 10/17/16 10:24 Lopressor NG 25 mg BID MINI Administration Pantoprazole Sodium 40 mg 10/12/16 10:00 10/17/16 10:24 Protonix Susp PO 40 mg DAILY MINI Administration - Patient Studies Lab Studies: Microbiology Studies 10/15/16 17:50 Ova and Parasite Concentrate Exam - Final Stool 10/11/16 08:30 Blood Culture - Final Blood-Venous NO GROWTH AFTER 5 DAYS Gram Stain - Final TEST NOT PERFORMED 10/11/16 08:00 Blood Culture - Final Blood-Venous NO GROWTH AFTER 5 DAYS Gram Stain - Final TEST NOT PERFORMED Lab Studies 10/17/16 10/17/16 10/17/16 Range/Units 10:14 08:01 06:20 WBC (4.8-10.8) K/uL RBC (3.80-5.20) Mil/uL Hgb (11.0-16.0) g/dL Hct (34.0-47.0) % MCV (81.0-99.0) fL MCH (27.0-31.0) pg MCHC (33.0-37.0) g/dL RDW (11.5-14.5) % Plt Count (130-400) K/uL MPV (7.2-11.7) fL Neut % (Auto) (50.0-75.0) % Lymph % (Auto) (20.0-40.0) % [place] % (Auto) (0.0-10.0) % Eos % (Auto) (0.0-4.0) % Baso % (Auto) (0.0-2.0) % Neut # (1.8-7.0) K/uL Lymph # (1.0-4.3) K/uL [place] # (0.0-0.8) K/uL Eos # (0.0-0.7) K/uL Baso # (0.0-0.2) K/uL Puncture Site pCO2 (35-45) mm/Hg pO2 (80-100) mm/Hg HCO3 (21-28) mmol/L ABG pH (7.35-7.45) ABG Total CO2 (22-28) mmol/L ABG O2 Saturation (95-98) % ABG Base Excess (-2.0-3.0) mmol/L ABG Hemoglobin (11.7-17.4) g/dL ABG Carboxyhemoglobin (0.5-1.5) % POC ABG HHb (Measured) (0.0-5.0) % ABG Methemoglobin (0.0-3.0) % Nico Test A-a O2 Difference mm/Hg Respiratory Index Hgb O2 Saturation (95.0-98.0) % Mechanical Rate FiO2 % Tidal Volume PEEP Sodium 150 H (132-148) mmol/L Potassium 3.9 (3.6-5.2) mmol/L Chloride 111 H (98-107) mmol/L Carbon Dioxide 31 H (22-30) mmol/L Anion Gap 12 (10-20) BUN 33 H (7-17) mg/dL Creatinine 0.5 L (0.7-1.2) MG/DL Est GFR ( Amer) > 60 Est GFR (Non-Af Amer) > 60 POC Glucose (mg/dL) 250 H 282 H (65-110) mg/dL Random Glucose 222 H (65-105) mg/dL Calcium 9.9 (8.6-10.4) mg/dl Magnesium 2.3 (1.6-2.3) mg/dL Total Bilirubin 0.8 (0.2-1.3) mg/dL AST 33 (14-36) U/L ALT 33 (9-52) U/L Alkaline Phosphatase 80 (38-126) U/L Total Protein 6.9 (6.3-8.3) g/dL Albumin 3.0 L (3.5-5.0) g/dL Globulin 3.9 (2.2-3.9) gm/dL Albumin/Globulin Ratio 0.8 L (1.0-2.1) 10/17/16 10/17/16 10/17/16 Range/Units 06:20 05:39 04:26 WBC 14.7 H (4.8-10.8) K/uL RBC 4.52 (3.80-5.20) Mil/uL Hgb 13.0 (11.0-16.0) g/dL Hct 40.4 (34.0-47.0) % MCV 89.4 (81.0-99.0) fL MCH 28.7 (27.0-31.0) pg MCHC 32.1 L (33.0-37.0) g/dL RDW 13.4 (11.5-14.5) % Plt Count 322 (130-400) K/uL MPV 8.5 (7.2-11.7) fL Neut % (Auto) 76.4 H (50.0-75.0) % Lymph % (Auto) 16.9 L (20.0-40.0) % [place] % (Auto) 4.2 (0.0-10.0) % Eos % (Auto) 2.1 (0.0-4.0) % Baso % (Auto) 0.4 (0.0-2.0) % Neut # 11.3 H (1.8-7.0) K/uL Lymph # 2.5 (1.0-4.3) K/uL [place] # 0.6 (0.0-0.8) K/uL Eos # 0.3 (0.0-0.7) K/uL Baso # 0.1 (0.0-0.2) K/uL Puncture Site pCO2 (35-45) mm/Hg pO2 (80-100) mm/Hg HCO3 (21-28) mmol/L ABG pH (7.35-7.45) ABG Total CO2 (22-28) mmol/L ABG O2 Saturation (95-98) % ABG Base Excess (-2.0-3.0) mmol/L ABG Hemoglobin (11.7-17.4) g/dL ABG Carboxyhemoglobin (0.5-1.5) % POC ABG HHb (Measured) (0.0-5.0) % ABG Methemoglobin (0.0-3.0) % Nico Test A-a O2 Difference mm/Hg Respiratory Index Hgb O2 Saturation (95.0-98.0) % Mechanical Rate FiO2 % Tidal Volume PEEP Sodium (132-148) mmol/L Potassium (3.6-5.2) mmol/L Chloride (98-107) mmol/L Carbon Dioxide (22-30) mmol/L Anion Gap (10-20) BUN (7-17) mg/dL Creatinine (0.7-1.2) MG/DL Est GFR ( Amer) Est GFR (Non-Af Amer) POC Glucose (mg/dL) 239 H 218 H (65-110) mg/dL Random Glucose (65-105) mg/dL Calcium (8.6-10.4) mg/dl Magnesium (1.6-2.3) mg/dL Total Bilirubin (0.2-1.3) mg/dL AST (14-36) U/L ALT (9-52) U/L Alkaline Phosphatase (38-126) U/L Total Protein (6.3-8.3) g/dL Albumin (3.5-5.0) g/dL Globulin (2.2-3.9) gm/dL Albumin/Globulin Ratio (1.0-2.1) 10/17/16 10/17/16 10/16/16 Range/Units 04:25 02:10 23:58 WBC (4.8-10.8) K/uL RBC (3.80-5.20) Mil/uL Hgb (11.0-16.0) g/dL Hct (34.0-47.0) % MCV (81.0-99.0) fL MCH (27.0-31.0) pg MCHC (33.0-37.0) g/dL RDW (11.5-14.5) % Plt Count (130-400) K/uL MPV (7.2-11.7) fL Neut % (Auto) (50.0-75.0) % Lymph % (Auto) (20.0-40.0) % [place] % (Auto) (0.0-10.0) % Eos % (Auto) (0.0-4.0) % Baso % (Auto) (0.0-2.0) % Neut # (1.8-7.0) K/uL Lymph # (1.0-4.3) K/uL [place] # (0.0-0.8) K/uL Eos # (0.0-0.7) K/uL Baso # (0.0-0.2) K/uL Puncture Site Lr pCO2 46 H (35-45) mm/Hg pO2 78 L (80-100) mm/Hg HCO3 32.1 H (21-28) mmol/L ABG pH 7.48 H (7.35-7.45) ABG Total CO2 35.7 H (22-28) mmol/L ABG O2 Saturation 97.4 (95-98) % ABG Base Excess 9.3 H (-2.0-3.0) mmol/L ABG Hemoglobin 15.4 (11.7-17.4) g/dL ABG Carboxyhemoglobin 1.8 H (0.5-1.5) % POC ABG HHb (Measured) 2.5 (0.0-5.0) % ABG Methemoglobin 0.7 (0.0-3.0) % Nico Test Pos A-a O2 Difference 78.0 mm/Hg Respiratory Index 1.0 Hgb O2 Saturation 95.0 (95.0-98.0) % Mechanical Rate 12 FiO2 30.0 % Tidal Volume 500 PEEP 5 Sodium (132-148) mmol/L Potassium (3.6-5.2) mmol/L Chloride (98-107) mmol/L Carbon Dioxide (22-30) mmol/L Anion Gap (10-20) BUN (7-17) mg/dL Creatinine (0.7-1.2) MG/DL Est GFR ( Amer) Est GFR (Non-Af Amer) POC Glucose (mg/dL) 201 H 234 H (65-110) mg/dL Random Glucose (65-105) mg/dL Calcium (8.6-10.4) mg/dl Magnesium (1.6-2.3) mg/dL Total Bilirubin (0.2-1.3) mg/dL AST (14-36) U/L ALT (9-52) U/L Alkaline Phosphatase (38-126) U/L Total Protein (6.3-8.3) g/dL Albumin (3.5-5.0) g/dL Globulin (2.2-3.9) gm/dL Albumin/Globulin Ratio (1.0-2.1) 10/16/16 10/16/16 10/16/16 Range/Units 21:53 21:04 19:58 WBC (4.8-10.8) K/uL RBC (3.80-5.20) Mil/uL Hgb (11.0-16.0) g/dL Hct (34.0-47.0) % MCV (81.0-99.0) fL MCH (27.0-31.0) pg MCHC (33.0-37.0) g/dL RDW (11.5-14.5) % Plt Count (130-400) K/uL MPV (7.2-11.7) fL Neut % (Auto) (50.0-75.0) % Lymph % (Auto) (20.0-40.0) % [place] % (Auto) (0.0-10.0) % Eos % (Auto) (0.0-4.0) % Baso % (Auto) (0.0-2.0) % Neut # (1.8-7.0) K/uL Lymph # (1.0-4.3) K/uL [place] # (0.0-0.8) K/uL Eos # (0.0-0.7) K/uL Baso # (0.0-0.2) K/uL Puncture Site pCO2 (35-45) mm/Hg pO2 (80-100) mm/Hg HCO3 (21-28) mmol/L ABG pH (7.35-7.45) ABG Total CO2 (22-28) mmol/L ABG O2 Saturation (95-98) % ABG Base Excess (-2.0-3.0) mmol/L ABG Hemoglobin (11.7-17.4) g/dL ABG Carboxyhemoglobin (0.5-1.5) % POC ABG HHb (Measured) (0.0-5.0) % ABG Methemoglobin (0.0-3.0) % Nico Test A-a O2 Difference mm/Hg Respiratory Index Hgb O2 Saturation (95.0-98.0) % Mechanical Rate FiO2 % Tidal Volume PEEP Sodium (132-148) mmol/L Potassium (3.6-5.2) mmol/L Chloride (98-107) mmol/L Carbon Dioxide (22-30) mmol/L Anion Gap (10-20) BUN (7-17) mg/dL Creatinine (0.7-1.2) MG/DL Est GFR ( Amer) Est GFR (Non-Af Amer) POC Glucose (mg/dL) 213 H 200 H 193 H (65-110) mg/dL Random Glucose (65-105) mg/dL Calcium (8.6-10.4) mg/dl Magnesium (1.6-2.3) mg/dL Total Bilirubin (0.2-1.3) mg/dL AST (14-36) U/L ALT (9-52) U/L Alkaline Phosphatase (38-126) U/L Total Protein (6.3-8.3) g/dL Albumin (3.5-5.0) g/dL Globulin (2.2-3.9) gm/dL Albumin/Globulin Ratio (1.0-2.1) 10/16/16 10/16/16 10/16/16 Range/Units 18:54 17:54 16:05 WBC (4.8-10.8) K/uL RBC (3.80-5.20) Mil/uL Hgb (11.0-16.0) g/dL Hct (34.0-47.0) % MCV (81.0-99.0) fL MCH (27.0-31.0) pg MCHC (33.0-37.0) g/dL RDW (11.5-14.5) % Plt Count (130-400) K/uL MPV (7.2-11.7) fL Neut % (Auto) (50.0-75.0) % Lymph % (Auto) (20.0-40.0) % [place] % (Auto) (0.0-10.0) % Eos % (Auto) (0.0-4.0) % Baso % (Auto) (0.0-2.0) % Neut # (1.8-7.0) K/uL Lymph # (1.0-4.3) K/uL [place] # (0.0-0.8) K/uL Eos # (0.0-0.7) K/uL Baso # (0.0-0.2) K/uL Puncture Site pCO2 (35-45) mm/Hg pO2 (80-100) mm/Hg HCO3 (21-28) mmol/L ABG pH (7.35-7.45) ABG Total CO2 (22-28) mmol/L ABG O2 Saturation (95-98) % ABG Base Excess (-2.0-3.0) mmol/L ABG Hemoglobin (11.7-17.4) g/dL ABG Carboxyhemoglobin (0.5-1.5) % POC ABG HHb (Measured) (0.0-5.0) % ABG Methemoglobin (0.0-3.0) % Nico Test A-a O2 Difference mm/Hg Respiratory Index Hgb O2 Saturation (95.0-98.0) % Mechanical Rate FiO2 % Tidal Volume PEEP Sodium (132-148) mmol/L Potassium (3.6-5.2) mmol/L Chloride (98-107) mmol/L Carbon Dioxide (22-30) mmol/L Anion Gap (10-20) BUN (7-17) mg/dL Creatinine (0.7-1.2) MG/DL Est GFR ( Amer) Est GFR (Non-Af Amer) POC Glucose (mg/dL) 178 H 168 H 218 H (65-110) mg/dL Random Glucose (65-105) mg/dL Calcium (8.6-10.4) mg/dl Magnesium (1.6-2.3) mg/dL Total Bilirubin (0.2-1.3) mg/dL AST (14-36) U/L ALT (9-52) U/L Alkaline Phosphatase (38-126) U/L Total Protein (6.3-8.3) g/dL Albumin (3.5-5.0) g/dL Globulin (2.2-3.9) gm/dL Albumin/Globulin Ratio (1.0-2.1) 10/16/16 10/16/16 10/16/16 Range/Units 14:44 13:30 12:41 WBC (4.8-10.8) K/uL RBC (3.80-5.20) Mil/uL Hgb (11.0-16.0) g/dL Hct (34.0-47.0) % MCV (81.0-99.0) fL MCH (27.0-31.0) pg MCHC (33.0-37.0) g/dL RDW (11.5-14.5) % Plt Count (130-400) K/uL MPV (7.2-11.7) fL Neut % (Auto) (50.0-75.0) % Lymph % (Auto) (20.0-40.0) % [place] % (Auto) (0.0-10.0) % Eos % (Auto) (0.0-4.0) % Baso % (Auto) (0.0-2.0) % Neut # (1.8-7.0) K/uL Lymph # (1.0-4.3) K/uL [place] # (0.0-0.8) K/uL Eos # (0.0-0.7) K/uL Baso # (0.0-0.2) K/uL Puncture Site pCO2 (35-45) mm/Hg pO2 (80-100) mm/Hg HCO3 (21-28) mmol/L ABG pH (7.35-7.45) ABG Total CO2 (22-28) mmol/L ABG O2 Saturation (95-98) % ABG Base Excess (-2.0-3.0) mmol/L ABG Hemoglobin (11.7-17.4) g/dL ABG Carboxyhemoglobin (0.5-1.5) % POC ABG HHb (Measured) (0.0-5.0) % ABG Methemoglobin (0.0-3.0) % Nico Test A-a O2 Difference mm/Hg Respiratory Index Hgb O2 Saturation (95.0-98.0) % Mechanical Rate FiO2 % Tidal Volume PEEP Sodium (132-148) mmol/L Potassium (3.6-5.2) mmol/L Chloride (98-107) mmol/L Carbon Dioxide (22-30) mmol/L Anion Gap (10-20) BUN (7-17) mg/dL Creatinine (0.7-1.2) MG/DL Est GFR ( Amer) Est GFR (Non-Af Amer) POC Glucose (mg/dL) 247 H 254 H 282 H (65-110) mg/dL Random Glucose (65-105) mg/dL Calcium (8.6-10.4) mg/dl Magnesium (1.6-2.3) mg/dL Total Bilirubin (0.2-1.3) mg/dL AST (14-36) U/L ALT (9-52) U/L Alkaline Phosphatase (38-126) U/L Total Protein (6.3-8.3) g/dL Albumin (3.5-5.0) g/dL Globulin (2.2-3.9) gm/dL Albumin/Globulin Ratio (1.0-2.1) Laboratory Results - last 24 hr 10/16/16 10/16/16 10/16/16 12:41 13:30 14:44 WBC RBC Hgb Hct MCV MCH MCHC RDW Plt Count MPV Neut % (Auto) Lymph % (Auto) [place] % (Auto) Eos % (Auto) Baso % (Auto) Neut # Lymph # [place] # Eos # Baso # Puncture Site pCO2 pO2 HCO3 ABG pH ABG Total CO2 ABG O2 Saturation ABG Base Excess ABG Hemoglobin ABG Carboxyhemoglobin POC ABG HHb (Measured) ABG Methemoglobin Nico Test A-a O2 Difference Respiratory Index Hgb O2 Saturation Mechanical Rate FiO2 Tidal Volume PEEP Sodium Potassium Chloride Carbon Dioxide Anion Gap BUN Creatinine Est GFR ( Amer) Est GFR (Non-Af Amer) POC Glucose (mg/dL) 282 H 254 H 247 H Random Glucose Calcium Magnesium Total Bilirubin AST ALT Alkaline Phosphatase Total Protein Albumin Globulin Albumin/Globulin Ratio 10/16/16 10/16/16 10/16/16 16:05 17:54 18:54 WBC RBC Hgb Hct MCV MCH MCHC RDW Plt Count MPV Neut % (Auto) Lymph % (Auto) [place] % (Auto) Eos % (Auto) Baso % (Auto) Neut # Lymph # [place] # Eos # Baso # Puncture Site pCO2 pO2 HCO3 ABG pH ABG Total CO2 ABG O2 Saturation ABG Base Excess ABG Hemoglobin ABG Carboxyhemoglobin POC ABG HHb (Measured) ABG Methemoglobin Nico Test A-a O2 Difference Respiratory Index Hgb O2 Saturation Mechanical Rate FiO2 Tidal Volume PEEP Sodium Potassium Chloride Carbon Dioxide Anion Gap BUN Creatinine Est GFR ( Amer) Est GFR (Non-Af Amer) POC Glucose (mg/dL) 218 H 168 H 178 H Random Glucose Calcium Magnesium Total Bilirubin AST ALT Alkaline Phosphatase Total Protein Albumin Globulin Albumin/Globulin Ratio 10/16/16 10/16/16 10/16/16 19:58 21:04 21:53 WBC RBC Hgb Hct MCV MCH MCHC RDW Plt Count MPV Neut % (Auto) Lymph % (Auto) [place] % (Auto) Eos % (Auto) Baso % (Auto) Neut # Lymph # [place] # Eos # Baso # Puncture Site pCO2 pO2 HCO3 ABG pH ABG Total CO2 ABG O2 Saturation ABG Base Excess ABG Hemoglobin ABG Carboxyhemoglobin POC ABG HHb (Measured) ABG Methemoglobin Nico Test A-a O2 Difference Respiratory Index Hgb O2 Saturation Mechanical Rate FiO2 Tidal Volume PEEP Sodium Potassium Chloride Carbon Dioxide Anion Gap BUN Creatinine Est GFR ( Amer) Est GFR (Non-Af Amer) POC Glucose (mg/dL) 193 H 200 H 213 H Random Glucose Calcium Magnesium Total Bilirubin AST ALT Alkaline Phosphatase Total Protein Albumin Globulin Albumin/Globulin Ratio 10/16/16 10/17/16 10/17/16 23:58 02:10 04:25 WBC RBC Hgb Hct MCV MCH MCHC RDW Plt Count MPV Neut % (Auto) Lymph % (Auto) [place] % (Auto) Eos % (Auto) Baso % (Auto) Neut # Lymph # [place] # Eos # Baso # Puncture Site Lr pCO2 46 H pO2 78 L HCO3 32.1 H ABG pH 7.48 H ABG Total CO2 35.7 H ABG O2 Saturation 97.4 ABG Base Excess 9.3 H ABG Hemoglobin 15.4 ABG Carboxyhemoglobin 1.8 H POC ABG HHb (Measured) 2.5 ABG Methemoglobin 0.7 Nico Test Pos A-a O2 Difference 78.0 Respiratory Index 1.0 Hgb O2 Saturation 95.0 Mechanical Rate 12 FiO2 30.0 Tidal Volume 500 PEEP 5 Sodium Potassium Chloride Carbon Dioxide Anion Gap BUN Creatinine Est GFR ( Amer) Est GFR (Non-Af Amer) POC Glucose (mg/dL) 234 H 201 H Random Glucose Calcium Magnesium Total Bilirubin AST ALT Alkaline Phosphatase Total Protein Albumin Globulin Albumin/Globulin Ratio 10/17/16 10/17/16 10/17/16 04:26 05:39 06:20 WBC 14.7 H RBC 4.52 Hgb 13.0 Hct 40.4 MCV 89.4 MCH 28.7 MCHC 32.1 L RDW 13.4 Plt Count 322 MPV 8.5 Neut % (Auto) 76.4 H Lymph % (Auto) 16.9 L [place] % (Auto) 4.2 Eos % (Auto) 2.1 Baso % (Auto) 0.4 Neut # 11.3 H Lymph # 2.5 [place] # 0.6 Eos # 0.3 Baso # 0.1 Puncture Site pCO2 pO2 HCO3 ABG pH ABG Total CO2 ABG O2 Saturation ABG Base Excess ABG Hemoglobin ABG Carboxyhemoglobin POC ABG HHb (Measured) ABG Methemoglobin Nico Test A-a O2 Difference Respiratory Index Hgb O2 Saturation Mechanical Rate FiO2 Tidal Volume PEEP Sodium Potassium Chloride Carbon Dioxide Anion Gap BUN Creatinine Est GFR ( Amer) Est GFR (Non-Af Amer) POC Glucose (mg/dL) 218 H 239 H Random Glucose Calcium Magnesium Total Bilirubin AST ALT Alkaline Phosphatase Total Protein Albumin Globulin Albumin/Globulin Ratio 10/17/16 10/17/16 10/17/16 06:20 08:01 10:14 WBC RBC Hgb Hct MCV MCH MCHC RDW Plt Count MPV Neut % (Auto) Lymph % (Auto) [place] % (Auto) Eos % (Auto) Baso % (Auto) Neut # Lymph # [place] # Eos # Baso # Puncture Site pCO2 pO2 HCO3 ABG pH ABG Total CO2 ABG O2 Saturation ABG Base Excess ABG Hemoglobin ABG Carboxyhemoglobin POC ABG HHb (Measured) ABG Methemoglobin Nico Test A-a O2 Difference Respiratory Index Hgb O2 Saturation Mechanical Rate FiO2 Tidal Volume PEEP Sodium 150 H Potassium 3.9 Chloride 111 H Carbon Dioxide 31 H Anion Gap 12 BUN 33 H Creatinine 0.5 L Est GFR ( Amer) > 60 Est GFR (Non-Af Amer) > 60 POC Glucose (mg/dL) 282 H 250 H Random Glucose 222 H Calcium 9.9 Magnesium 2.3 Total Bilirubin 0.8 AST 33 ALT 33 Alkaline Phosphatase 80 Total Protein 6.9 Albumin 3.0 L Globulin 3.9 Albumin/Globulin Ratio 0.8 L Fingerstick Blood Sugar Results: 282 Review of Systems - Review of Systems Systems not reviewed;Unavailable: Intubated Assessment/Plan - Assessment and Plan (Free Text) Assessment: 61F with severe sepsis/MOSF likely 2/2 meningitis (most likely S. pneumo); s. pneumo bacteremia and poss pna; acute hypoxic resp failure, intubated Plan: Neuro: Sedation off, opening eyes. Still unresponsive to verbal and tactile stimuli. Triggering vent Neuro following Maintain serum Na 145-150 MRI when possible Latest CT head shows concern for multifocal ischemia Cardiovascular: Hemodynamically stable. No acute issues Monitor Pulmonary: Intubated. Saturating well. Will attempt CPAP today Continue rocephin Gastrointestinal: No acute issues, on tube feeds, tolerating well. Hematology: No acute issues Endocrine: Blood sugars better on insulin drip Restarted levemir at 30 units q12h Added high dose sliding scale coverage as well accucheck q6h Renal: Monitor electrolytes Strict I/O - good urine output Infectious Disease: Likely strep pneumo meningitis - CSF cultures negative (drawn after abx initiation) Continue Rocephin ID following Pt received 4 days of high dose steroids, d/c'ed now GI Prophylaxis: Protonix DVT Prophylaxis: Lovenox <Jack Roa - Last Filed: 10/17/16 14:20> CCU Objective - Vital Signs / Intake & Output Vital Signs (Last 4 hours): Vital Signs Pulse Resp BP Pulse Ox 10/17/16 14:00 78 13 173/73 H 96 10/17/16 13:01 75 12 171/74 H 94 L 10/17/16 13:00 73 14 96 10/17/16 12:01 72 15 128/49 L 96 10/17/16 12:00 72 15 96 10/17/16 11:00 80 13 189/72 H 97 10/17/16 10:24 174/73 H 10/17/16 10:23 174/73 H Intake and Output (Last 8hrs): Intake & Output 10/16/16 10/17/16 10/17/16 22:59 06:59 14:59 Intake Total 442 336 334 Output Total 380 445 450 Balance 62 -109 -116 Weight 231 lb 4 oz Intake: Intake, IV Amount 122 16 14 Right Medial Port 22 16 14 Internal Jugular Right Proximal Port 100 Internal Jugular Tube Feeding 320 320 320 Output: Urine 380 445 450 Urethral ([place]) 380 445 450 - Medications Active Medications: Active Medications Generic Name Dose Route Start Last Admin Trade Name Freq PRN Reason Stop Dose Admin Acetaminophen 650 mg 10/09/16 00:41 10/11/16 02:09 Tylenol 650mg/20.3ml Solution Ud NG 650 mg Q6 PRN Administration FOR TEMP 101*F OR ABOVE Artificial Tears 1 gm 10/11/16 10:30 10/17/16 10:34 Lacri-Lube OU 1 gm BID MINI Administration Enoxaparin Sodium 40 mg 10/09/16 17:30 10/17/16 10:24 Lovenox SC 40 mg DAILY MINI Administration Furosemide 40 mg 10/13/16 10:00 10/17/16 10:23 Lasix IVP 40 mg DAILY MINI Administration Ceftriaxone Sodium 2 gm/ 100 mls @ 100 mls/hr 10/10/16 22:00 10/17/16 10:22 Sodium Chloride IVPB 100 mls/hr Q12 MINI Administration Propofol 1,000 mg in 100 mls @ 3.201 mls/hr 10/12/16 00:25 10/16/16 06:30 Diprivan IV 12 mcg/kg/min .Q24H PRN 7.683 mls/hr TITRATE PER MD ORDER Administration Protocol 5 MCG/KG/MIN Insulin Aspart 0 unit 10/17/16 12:00 Novolog SC Q6 MINI Protocol Insulin Detemir 30 unit 10/17/16 10:00 10/17/16 10:25 Levemir SC 30 unit Q12H MINI Administration Lactulose 20 gm 10/12/16 18:00 10/17/16 10:23 Enulose NG 20 gm BID MINI Administration Lorazepam 2 mg 10/09/16 21:06 10/10/16 05:30 Ativan IVP 2 mg Q6H PRN Administration Anxiety Metoprolol Tartrate 25 mg 10/12/16 18:00 10/17/16 10:24 Lopressor NG 25 mg BID MINI Administration Pantoprazole Sodium 40 mg 10/12/16 10:00 10/17/16 10:24 Protonix Susp PO 40 mg DAILY MINI Administration Sodium Chloride 500 ml 10/17/16 14:10 Hypertonic Saline 3% IV 10/17/16 14:11 ONCE ONE - Patient Studies Lab Studies: Microbiology Studies 10/15/16 17:50 Ova and Parasite Concentrate Exam - Final Stool 10/11/16 08:30 Blood Culture - Final Blood-Venous NO GROWTH AFTER 5 DAYS Gram Stain - Final TEST NOT PERFORMED 10/11/16 08:00 Blood Culture - Final Blood-Venous NO GROWTH AFTER 5 DAYS Gram Stain - Final TEST NOT PERFORMED Lab Studies 10/17/16 10/17/16 10/17/16 Range/Units 12:37 10:14 08:01 WBC (4.8-10.8) K/uL RBC (3.80-5.20) Mil/uL Hgb (11.0-16.0) g/dL Hct (34.0-47.0) % MCV (81.0-99.0) fL MCH (27.0-31.0) pg MCHC (33.0-37.0) g/dL RDW (11.5-14.5) % Plt Count (130-400) K/uL MPV (7.2-11.7) fL Neut % (Auto) (50.0-75.0) % Lymph % (Auto) (20.0-40.0) % [place] % (Auto) (0.0-10.0) % Eos % (Auto) (0.0-4.0) % Baso % (Auto) (0.0-2.0) % Neut # (1.8-7.0) K/uL Lymph # (1.0-4.3) K/uL [place] # (0.0-0.8) K/uL Eos # (0.0-0.7) K/uL Baso # (0.0-0.2) K/uL Puncture Site pCO2 (35-45) mm/Hg pO2 (80-100) mm/Hg HCO3 (21-28) mmol/L ABG pH (7.35-7.45) ABG Total CO2 (22-28) mmol/L ABG O2 Saturation (95-98) % ABG Base Excess (-2.0-3.0) mmol/L ABG Hemoglobin (11.7-17.4) g/dL ABG Carboxyhemoglobin (0.5-1.5) % POC ABG HHb (Measured) (0.0-5.0) % ABG Methemoglobin (0.0-3.0) % Nico Test A-a O2 Difference mm/Hg Respiratory Index Hgb O2 Saturation (95.0-98.0) % Mechanical Rate FiO2 % Tidal Volume PEEP Sodium (132-148) mmol/L Potassium (3.6-5.2) mmol/L Chloride (98-107) mmol/L Carbon Dioxide (22-30) mmol/L Anion Gap (10-20) BUN (7-17) mg/dL Creatinine (0.7-1.2) MG/DL Est GFR ( Amer) Est GFR (Non-Af Amer) POC Glucose (mg/dL) 338 H 250 H 282 H (65-110) mg/dL Random Glucose (65-105) mg/dL Calcium (8.6-10.4) mg/dl Magnesium (1.6-2.3) mg/dL Total Bilirubin (0.2-1.3) mg/dL AST (14-36) U/L ALT (9-52) U/L Alkaline Phosphatase (38-126) U/L Total Protein (6.3-8.3) g/dL Albumin (3.5-5.0) g/dL Globulin (2.2-3.9) gm/dL Albumin/Globulin Ratio (1.0-2.1) 10/17/16 10/17/16 10/17/16 Range/Units 06:20 06:20 05:39 WBC 14.7 H (4.8-10.8) K/uL RBC 4.52 (3.80-5.20) Mil/uL Hgb 13.0 (11.0-16.0) g/dL Hct 40.4 (34.0-47.0) % MCV 89.4 (81.0-99.0) fL MCH 28.7 (27.0-31.0) pg MCHC 32.1 L (33.0-37.0) g/dL RDW 13.4 (11.5-14.5) % Plt Count 322 (130-400) K/uL MPV 8.5 (7.2-11.7) fL Neut % (Auto) 76.4 H (50.0-75.0) % Lymph % (Auto) 16.9 L (20.0-40.0) % [place] % (Auto) 4.2 (0.0-10.0) % Eos % (Auto) 2.1 (0.0-4.0) % Baso % (Auto) 0.4 (0.0-2.0) % Neut # 11.3 H (1.8-7.0) K/uL Lymph # 2.5 (1.0-4.3) K/uL [place] # 0.6 (0.0-0.8) K/uL Eos # 0.3 (0.0-0.7) K/uL Baso # 0.1 (0.0-0.2) K/uL Puncture Site pCO2 (35-45) mm/Hg pO2 (80-100) mm/Hg HCO3 (21-28) mmol/L ABG pH (7.35-7.45) ABG Total CO2 (22-28) mmol/L ABG O2 Saturation (95-98) % ABG Base Excess (-2.0-3.0) mmol/L ABG Hemoglobin (11.7-17.4) g/dL ABG Carboxyhemoglobin (0.5-1.5) % POC ABG HHb (Measured) (0.0-5.0) % ABG Methemoglobin (0.0-3.0) % Nico Test A-a O2 Difference mm/Hg Respiratory Index Hgb O2 Saturation (95.0-98.0) % Mechanical Rate FiO2 % Tidal Volume PEEP Sodium 150 H (132-148) mmol/L Potassium 3.9 (3.6-5.2) mmol/L Chloride 111 H (98-107) mmol/L Carbon Dioxide 31 H (22-30) mmol/L Anion Gap 12 (10-20) BUN 33 H (7-17) mg/dL Creatinine 0.5 L (0.7-1.2) MG/DL Est GFR ( Amer) > 60 Est GFR (Non-Af Amer) > 60 POC Glucose (mg/dL) 239 H (65-110) mg/dL Random Glucose 222 H (65-105) mg/dL Calcium 9.9 (8.6-10.4) mg/dl Magnesium 2.3 (1.6-2.3) mg/dL Total Bilirubin 0.8 (0.2-1.3) mg/dL AST 33 (14-36) U/L ALT 33 (9-52) U/L Alkaline Phosphatase 80 (38-126) U/L Total Protein 6.9 (6.3-8.3) g/dL Albumin 3.0 L (3.5-5.0) g/dL Globulin 3.9 (2.2-3.9) gm/dL Albumin/Globulin Ratio 0.8 L (1.0-2.1) 10/17/16 10/17/16 10/17/16 Range/Units 04:26 04:25 02:10 WBC (4.8-10.8) K/uL RBC (3.80-5.20) Mil/uL Hgb (11.0-16.0) g/dL Hct (34.0-47.0) % MCV (81.0-99.0) fL MCH (27.0-31.0) pg MCHC (33.0-37.0) g/dL RDW (11.5-14.5) % Plt Count (130-400) K/uL MPV (7.2-11.7) fL Neut % (Auto) (50.0-75.0) % Lymph % (Auto) (20.0-40.0) % [place] % (Auto) (0.0-10.0) % Eos % (Auto) (0.0-4.0) % Baso % (Auto) (0.0-2.0) % Neut # (1.8-7.0) K/uL Lymph # (1.0-4.3) K/uL [place] # (0.0-0.8) K/uL Eos # (0.0-0.7) K/uL Baso # (0.0-0.2) K/uL Puncture Site Lr pCO2 46 H (35-45) mm/Hg pO2 78 L (80-100) mm/Hg HCO3 32.1 H (21-28) mmol/L ABG pH 7.48 H (7.35-7.45) ABG Total CO2 35.7 H (22-28) mmol/L ABG O2 Saturation 97.4 (95-98) % ABG Base Excess 9.3 H (-2.0-3.0) mmol/L ABG Hemoglobin 15.4 (11.7-17.4) g/dL ABG Carboxyhemoglobin 1.8 H (0.5-1.5) % POC ABG HHb (Measured) 2.5 (0.0-5.0) % ABG Methemoglobin 0.7 (0.0-3.0) % Nico Test Pos A-a O2 Difference 78.0 mm/Hg Respiratory Index 1.0 Hgb O2 Saturation 95.0 (95.0-98.0) % Mechanical Rate 12 FiO2 30.0 % Tidal Volume 500 PEEP 5 Sodium (132-148) mmol/L Potassium (3.6-5.2) mmol/L Chloride (98-107) mmol/L Carbon Dioxide (22-30) mmol/L Anion Gap (10-20) BUN (7-17) mg/dL Creatinine (0.7-1.2) MG/DL Est GFR ( Amer) Est GFR (Non-Af Amer) POC Glucose (mg/dL) 218 H 201 H (65-110) mg/dL Random Glucose (65-105) mg/dL Calcium (8.6-10.4) mg/dl Magnesium (1.6-2.3) mg/dL Total Bilirubin (0.2-1.3) mg/dL AST (14-36) U/L ALT (9-52) U/L Alkaline Phosphatase (38-126) U/L Total Protein (6.3-8.3) g/dL Albumin (3.5-5.0) g/dL Globulin (2.2-3.9) gm/dL Albumin/Globulin Ratio (1.0-2.1) 10/16/16 10/16/16 10/16/16 Range/Units 23:58 21:53 21:04 WBC (4.8-10.8) K/uL RBC (3.80-5.20) Mil/uL Hgb (11.0-16.0) g/dL Hct (34.0-47.0) % MCV (81.0-99.0) fL MCH (27.0-31.0) pg MCHC (33.0-37.0) g/dL RDW (11.5-14.5) % Plt Count (130-400) K/uL MPV (7.2-11.7) fL Neut % (Auto) (50.0-75.0) % Lymph % (Auto) (20.0-40.0) % [place] % (Auto) (0.0-10.0) % Eos % (Auto) (0.0-4.0) % Baso % (Auto) (0.0-2.0) % Neut # (1.8-7.0) K/uL Lymph # (1.0-4.3) K/uL [place] # (0.0-0.8) K/uL Eos # (0.0-0.7) K/uL Baso # (0.0-0.2) K/uL Puncture Site pCO2 (35-45) mm/Hg pO2 (80-100) mm/Hg HCO3 (21-28) mmol/L ABG pH (7.35-7.45) ABG Total CO2 (22-28) mmol/L ABG O2 Saturation (95-98) % ABG Base Excess (-2.0-3.0) mmol/L ABG Hemoglobin (11.7-17.4) g/dL ABG Carboxyhemoglobin (0.5-1.5) % POC ABG HHb (Measured) (0.0-5.0) % ABG Methemoglobin (0.0-3.0) % Nico Test A-a O2 Difference mm/Hg Respiratory Index Hgb O2 Saturation (95.0-98.0) % Mechanical Rate FiO2 % Tidal Volume PEEP Sodium (132-148) mmol/L Potassium (3.6-5.2) mmol/L Chloride (98-107) mmol/L Carbon Dioxide (22-30) mmol/L Anion Gap (10-20) BUN (7-17) mg/dL Creatinine (0.7-1.2) MG/DL Est GFR ( Amer) Est GFR (Non-Af Amer) POC Glucose (mg/dL) 234 H 213 H 200 H (65-110) mg/dL Random Glucose (65-105) mg/dL Calcium (8.6-10.4) mg/dl Magnesium (1.6-2.3) mg/dL Total Bilirubin (0.2-1.3) mg/dL AST (14-36) U/L ALT (9-52) U/L Alkaline Phosphatase (38-126) U/L Total Protein (6.3-8.3) g/dL Albumin (3.5-5.0) g/dL Globulin (2.2-3.9) gm/dL Albumin/Globulin Ratio (1.0-2.1) 10/16/16 10/16/16 10/16/16 Range/Units 19:58 18:54 17:54 WBC (4.8-10.8) K/uL RBC (3.80-5.20) Mil/uL Hgb (11.0-16.0) g/dL Hct (34.0-47.0) % MCV (81.0-99.0) fL MCH (27.0-31.0) pg MCHC (33.0-37.0) g/dL RDW (11.5-14.5) % Plt Count (130-400) K/uL MPV (7.2-11.7) fL Neut % (Auto) (50.0-75.0) % Lymph % (Auto) (20.0-40.0) % [place] % (Auto) (0.0-10.0) % Eos % (Auto) (0.0-4.0) % Baso % (Auto) (0.0-2.0) % Neut # (1.8-7.0) K/uL Lymph # (1.0-4.3) K/uL [place] # (0.0-0.8) K/uL Eos # (0.0-0.7) K/uL Baso # (0.0-0.2) K/uL Puncture Site pCO2 (35-45) mm/Hg pO2 (80-100) mm/Hg HCO3 (21-28) mmol/L ABG pH (7.35-7.45) ABG Total CO2 (22-28) mmol/L ABG O2 Saturation (95-98) % ABG Base Excess (-2.0-3.0) mmol/L ABG Hemoglobin (11.7-17.4) g/dL ABG Carboxyhemoglobin (0.5-1.5) % POC ABG HHb (Measured) (0.0-5.0) % ABG Methemoglobin (0.0-3.0) % Nico Test A-a O2 Difference mm/Hg Respiratory Index Hgb O2 Saturation (95.0-98.0) % Mechanical Rate FiO2 % Tidal Volume PEEP Sodium (132-148) mmol/L Potassium (3.6-5.2) mmol/L Chloride (98-107) mmol/L Carbon Dioxide (22-30) mmol/L Anion Gap (10-20) BUN (7-17) mg/dL Creatinine (0.7-1.2) MG/DL Est GFR ( Amer) Est GFR (Non-Af Amer) POC Glucose (mg/dL) 193 H 178 H 168 H (65-110) mg/dL Random Glucose (65-105) mg/dL Calcium (8.6-10.4) mg/dl Magnesium (1.6-2.3) mg/dL Total Bilirubin (0.2-1.3) mg/dL AST (14-36) U/L ALT (9-52) U/L Alkaline Phosphatase (38-126) U/L Total Protein (6.3-8.3) g/dL Albumin (3.5-5.0) g/dL Globulin (2.2-3.9) gm/dL Albumin/Globulin Ratio (1.0-2.1) 10/16/16 10/16/16 Range/Units 16:05 14:44 WBC (4.8-10.8) K/uL RBC (3.80-5.20) Mil/uL Hgb (11.0-16.0) g/dL Hct (34.0-47.0) % MCV (81.0-99.0) fL MCH (27.0-31.0) pg MCHC (33.0-37.0) g/dL RDW (11.5-14.5) % Plt Count (130-400) K/uL MPV (7.2-11.7) fL Neut % (Auto) (50.0-75.0) % Lymph % (Auto) (20.0-40.0) % [place] % (Auto) (0.0-10.0) % Eos % (Auto) (0.0-4.0) % Baso % (Auto) (0.0-2.0) % Neut # (1.8-7.0) K/uL Lymph # (1.0-4.3) K/uL [place] # (0.0-0.8) K/uL Eos # (0.0-0.7) K/uL Baso # (0.0-0.2) K/uL Puncture Site pCO2 (35-45) mm/Hg pO2 (80-100) mm/Hg HCO3 (21-28) mmol/L ABG pH (7.35-7.45) ABG Total CO2 (22-28) mmol/L ABG O2 Saturation (95-98) % ABG Base Excess (-2.0-3.0) mmol/L ABG Hemoglobin (11.7-17.4) g/dL ABG Carboxyhemoglobin (0.5-1.5) % POC ABG HHb (Measured) (0.0-5.0) % ABG Methemoglobin (0.0-3.0) % Nico Test A-a O2 Difference mm/Hg Respiratory Index Hgb O2 Saturation (95.0-98.0) % Mechanical Rate FiO2 % Tidal Volume PEEP Sodium (132-148) mmol/L Potassium (3.6-5.2) mmol/L Chloride (98-107) mmol/L Carbon Dioxide (22-30) mmol/L Anion Gap (10-20) BUN (7-17) mg/dL Creatinine (0.7-1.2) MG/DL Est GFR ( Amer) Est GFR (Non-Af Amer) POC Glucose (mg/dL) 218 H 247 H (65-110) mg/dL Random Glucose (65-105) mg/dL Calcium (8.6-10.4) mg/dl Magnesium (1.6-2.3) mg/dL Total Bilirubin (0.2-1.3) mg/dL AST (14-36) U/L ALT (9-52) U/L Alkaline Phosphatase (38-126) U/L Total Protein (6.3-8.3) g/dL Albumin (3.5-5.0) g/dL Globulin (2.2-3.9) gm/dL Albumin/Globulin Ratio (1.0-2.1) Laboratory Results - last 24 hr 10/16/16 10/16/16 10/16/16 14:44 16:05 17:54 WBC RBC Hgb Hct MCV MCH MCHC RDW Plt Count MPV Neut % (Auto) Lymph % (Auto) [place] % (Auto) Eos % (Auto) Baso % (Auto) Neut # Lymph # [place] # Eos # Baso # Puncture Site pCO2 pO2 HCO3 ABG pH ABG Total CO2 ABG O2 Saturation ABG Base Excess ABG Hemoglobin ABG Carboxyhemoglobin POC ABG HHb (Measured) ABG Methemoglobin Nico Test A-a O2 Difference Respiratory Index Hgb O2 Saturation Mechanical Rate FiO2 Tidal Volume PEEP Sodium Potassium Chloride Carbon Dioxide Anion Gap BUN Creatinine Est GFR ( Amer) Est GFR (Non-Af Amer) POC Glucose (mg/dL) 247 H 218 H 168 H Random Glucose Calcium Magnesium Total Bilirubin AST ALT Alkaline Phosphatase Total Protein Albumin Globulin Albumin/Globulin Ratio 10/16/16 10/16/16 10/16/16 18:54 19:58 21:04 WBC RBC Hgb Hct MCV MCH MCHC RDW Plt Count MPV Neut % (Auto) Lymph % (Auto) [place] % (Auto) Eos % (Auto) Baso % (Auto) Neut # Lymph # [place] # Eos # Baso # Puncture Site pCO2 pO2 HCO3 ABG pH ABG Total CO2 ABG O2 Saturation ABG Base Excess ABG Hemoglobin ABG Carboxyhemoglobin POC ABG HHb (Measured) ABG Methemoglobin Nico Test A-a O2 Difference Respiratory Index Hgb O2 Saturation Mechanical Rate FiO2 Tidal Volume PEEP Sodium Potassium Chloride Carbon Dioxide Anion Gap BUN Creatinine Est GFR ( Amer) Est GFR (Non-Af Amer) POC Glucose (mg/dL) 178 H 193 H 200 H Random Glucose Calcium Magnesium Total Bilirubin AST ALT Alkaline Phosphatase Total Protein Albumin Globulin Albumin/Globulin Ratio 10/16/16 10/16/16 10/17/16 21:53 23:58 02:10 WBC RBC Hgb Hct MCV MCH MCHC RDW Plt Count MPV Neut % (Auto) Lymph % (Auto) [place] % (Auto) Eos % (Auto) Baso % (Auto) Neut # Lymph # [place] # Eos # Baso # Puncture Site pCO2 pO2 HCO3 ABG pH ABG Total CO2 ABG O2 Saturation ABG Base Excess ABG Hemoglobin ABG Carboxyhemoglobin POC ABG HHb (Measured) ABG Methemoglobin Nico Test A-a O2 Difference Respiratory Index Hgb O2 Saturation Mechanical Rate FiO2 Tidal Volume PEEP Sodium Potassium Chloride Carbon Dioxide Anion Gap BUN Creatinine Est GFR ( Amer) Est GFR (Non-Af Amer) POC Glucose (mg/dL) 213 H 234 H 201 H Random Glucose Calcium Magnesium Total Bilirubin AST ALT Alkaline Phosphatase Total Protein Albumin Globulin Albumin/Globulin Ratio 10/17/16 10/17/16 10/17/16 04:25 04:26 05:39 WBC RBC Hgb Hct MCV MCH MCHC RDW Plt Count MPV Neut % (Auto) Lymph % (Auto) [place] % (Auto) Eos % (Auto) Baso % (Auto) Neut # Lymph # [place] # Eos # Baso # Puncture Site Lr pCO2 46 H pO2 78 L HCO3 32.1 H ABG pH 7.48 H ABG Total CO2 35.7 H ABG O2 Saturation 97.4 ABG Base Excess 9.3 H ABG Hemoglobin 15.4 ABG Carboxyhemoglobin 1.8 H POC ABG HHb (Measured) 2.5 ABG Methemoglobin 0.7 Nico Test Pos A-a O2 Difference 78.0 Respiratory Index 1.0 Hgb O2 Saturation 95.0 Mechanical Rate 12 FiO2 30.0 Tidal Volume 500 PEEP 5 Sodium Potassium Chloride Carbon Dioxide Anion Gap BUN Creatinine Est GFR ( Amer) Est GFR (Non-Af Amer) POC Glucose (mg/dL) 218 H 239 H Random Glucose Calcium Magnesium Total Bilirubin AST ALT Alkaline Phosphatase Total Protein Albumin Globulin Albumin/Globulin Ratio 10/17/16 10/17/16 10/17/16 06:20 06:20 08:01 WBC 14.7 H RBC 4.52 Hgb 13.0 Hct 40.4 MCV 89.4 MCH 28.7 MCHC 32.1 L RDW 13.4 Plt Count 322 MPV 8.5 Neut % (Auto) 76.4 H Lymph % (Auto) 16.9 L [place] % (Auto) 4.2 Eos % (Auto) 2.1 Baso % (Auto) 0.4 Neut # 11.3 H Lymph # 2.5 [place] # 0.6 Eos # 0.3 Baso # 0.1 Puncture Site pCO2 pO2 HCO3 ABG pH ABG Total CO2 ABG O2 Saturation ABG Base Excess ABG Hemoglobin ABG Carboxyhemoglobin POC ABG HHb (Measured) ABG Methemoglobin Nico Test A-a O2 Difference Respiratory Index Hgb O2 Saturation Mechanical Rate FiO2 Tidal Volume PEEP Sodium 150 H Potassium 3.9 Chloride 111 H Carbon Dioxide 31 H Anion Gap 12 BUN 33 H Creatinine 0.5 L Est GFR ( Amer) > 60 Est GFR (Non-Af Amer) > 60 POC Glucose (mg/dL) 282 H Random Glucose 222 H Calcium 9.9 Magnesium 2.3 Total Bilirubin 0.8 AST 33 ALT 33 Alkaline Phosphatase 80 Total Protein 6.9 Albumin 3.0 L Globulin 3.9 Albumin/Globulin Ratio 0.8 L 10/17/16 10/17/16 10:14 12:37 WBC RBC Hgb Hct MCV MCH MCHC RDW Plt Count MPV Neut % (Auto) Lymph % (Auto) [place] % (Auto) Eos % (Auto) Baso % (Auto) Neut # Lymph # [place] # Eos # Baso # Puncture Site pCO2 pO2 HCO3 ABG pH ABG Total CO2 ABG O2 Saturation ABG Base Excess ABG Hemoglobin ABG Carboxyhemoglobin POC ABG HHb (Measured) ABG Methemoglobin Nico Test A-a O2 Difference Respiratory Index Hgb O2 Saturation Mechanical Rate FiO2 Tidal Volume PEEP Sodium Potassium Chloride Carbon Dioxide Anion Gap BUN Creatinine Est GFR ( Amer) Est GFR (Non-Af Amer) POC Glucose (mg/dL) 250 H 338 H Random Glucose Calcium Magnesium Total Bilirubin AST ALT Alkaline Phosphatase Total Protein Albumin Globulin Albumin/Globulin Ratio Attending/Attestation - Attestation I have personally seen and examined this patient.: Yes I have fully participated in the care of the patient.: Yes I have reviewed all pertinent clinical information: Yes Notes (Text): 10/17/16 14:19 I have seen and examined the patient. Medical records, lab studies, and imaging were reviewed by me and a management plan was formulated on multidisciplinary rounds with resident Dr. Mendez. I agree with their above documented assessment and plan. Patient has severe cerebral edema from anoxic injury, will start hypertonic saline infusion x 48h, monitor for any improvement. Prognosis is extremely poor. Will have to discuss goals of care with family. Critical Care Time 35 minutes. Multi-disciplinary rounds were performed with house staff, nursing, speech therapy, respiratory therapy, pharmacy and nutrition with integrated input from the primary team/attending and other consulting services. The documented time is cumulative and includes review of patient data/exams/labs/chart review and examination of the patient on rounds and throughout the day; time is exclusive of any procedures or teaching time.
[2016-10-17] MEDS: (Novolog) Insulin Aspart, Recombinant 100 u/ml 10 ml vial SC SCH ×2 (13:30→18:47)
[2016-10-17] MEDS ORDERED: Sodium Chloride 3% 500 ML IV ONE (15:30)
--- NOTE | 2016-10-17 17:14 | CP.PCM.PN ---
Subjective - Date & Time of Evaluation Date of Evaluation: 10/17/16 Time of Evaluation: 09:00 - Subjective Subjective: Pt seen and examined at bedside. Intubated. afebrile no new positive cultures Objective - Vital Signs/Intake and Output Vital Signs (last 24 hours): Temp Pulse Resp BP Pulse Ox 98.6 F 78 13 173/73 H 96 10/17/16 08:00 10/17/16 14:00 10/17/16 14:00 10/17/16 14:00 10/17/16 14:00 Intake and Output: 10/17/16 10/17/16 06:59 18:59 Intake Total 604 334 Output Total 640 450 Balance -36 -116 - Medications Medications: Current Medications Acetaminophen (Tylenol 650mg/20.3ml Solution Ud) 650 mg NG Q6 PRN PRN Reason: FOR TEMP 101*F OR ABOVE Last Admin: 10/11/16 02:09 Dose: 650 mg Artificial Tears (Lacri-Lube) 1 gm OU BID [facility] Last Admin: 10/17/16 10:34 Dose: 1 gm Enoxaparin Sodium (Lovenox) 40 mg SC DAILY [facility] Last Admin: 10/17/16 10:24 Dose: 40 mg Furosemide (Lasix) 40 mg IVP DAILY [facility] Last Admin: 10/17/16 10:23 Dose: 40 mg Ceftriaxone Sodium 2 gm/ (Sodium Chloride) 100 mls @ 100 mls/hr IVPB Q12 [facility] Last Admin: 10/17/16 10:22 Dose: 100 mls/hr Propofol (Diprivan) 1,000 mg in 100 mls @ 3.201 mls/hr IV .Q24H PRN; Protocol; 5 MCG/KG/MIN PRN Reason: TITRATE PER MD ORDER Last Admin: 10/16/16 06:30 Dose: 12 mcg/kg/min, 7.683 mls/hr Sodium Chloride (Hypertonic Saline 3%) 500 mls @ 100 mls/hr IV ONCE ONE Stop: 10/17/16 20:29 Last Admin: 10/17/16 16:28 Dose: 100 mls/hr Insulin Aspart (Novolog) 0 unit SC Q6 [facility] PRN Reason: Protocol Insulin Detemir (Levemir) 30 unit SC Q12H [facility] Last Admin: 10/17/16 10:25 Dose: 30 unit Lactulose (Enulose) 20 gm NG BID [facility] Last Admin: 10/17/16 10:23 Dose: 20 gm Lorazepam (Ativan) 2 mg IVP Q6H PRN PRN Reason: Anxiety Last Admin: 10/10/16 05:30 Dose: 2 mg Metoprolol Tartrate (Lopressor) 25 mg NG BID [facility] Last Admin: 10/17/16 10:24 Dose: 25 mg Pantoprazole Sodium (Protonix Susp) 40 mg PO DAILY [facility] Last Admin: 10/17/16 10:24 Dose: 40 mg - Labs Labs: 10/17/16 06:20 10/17/16 06:20 PT 16.5 SECONDS (9.7-12.2) H 10/09/16 12:53 INR 1.4 10/09/16 12:53 APTT 39 SECONDS (21-34) H 10/09/16 12:53 - Constitutional Appears: Non-toxic, Chronically Ill - Head Exam Head Exam: NORMOCEPHALIC - Eye Exam Eye Exam: PERRL. absent: Scleral icterus - ENT Exam ENT Exam: Mucous Membranes Dry - Neck Exam Neck Exam: absent: Lymphadenopathy - Respiratory Exam Respiratory Exam: Decreased Breath Sounds, Rhonchi - Cardiovascular Exam Cardiovascular Exam: REGULAR RHYTHM, +S1, +S2 - GI/Abdominal Exam GI & Abdominal Exam: Distended, Soft Assessment and Plan (1) Meningitis Status: Acute (2) Meningitis Status: Acute (3) Acute confusional state Status: Acute (4) Encephalopathy acute Status: Acute (5) Pneumonia Status: Acute (6) Sepsis Status: Acute
[2016-10-17 22:05] LABS: CHLORIDE 116 mmol/L (98-107); POTASSIUM 4.1 mmol/L (3.6-5.2); SODIUM 156 mmol/L (132-148)
[2016-10-17 22:07] LABS: BLOOD UREA NITROGEN 32 mg/dL (7-17); CALCIUM 9.8 mg/dl (8.6-10.4); CARBON DIOXIDE 32 mmol/L (22-30); GFR AFRICAN-AMERICAN > 60; GLUCOSE,RANDOM 347 mg/dL (65-105)
[2016-10-18] MEDS: (Novolog) Insulin Aspart, Recombinant 100 u/ml 10 ml vial SC SCH ×4 (00:14→18:28)
[2016-10-18 04:43] LABS: ABG ALLEN TEST POS; ABG MECHANICAL RATE 12; ATERIAL BLOOD GAS PEEP 5; CARBOXYHEMOGLOBIN 1.7 % (0.5-1.5); DRAW SITE RR; HHB 3.7 % (0.0-5.0); METHEMOGLOBIN 0.6 % (0.0-3.0)
[2016-10-18 06:32] LABS: BASO # 0.1 K/uL (0.0-0.2); BASO % 0.4 % (0.0-2.0); EOS # 0.3 K/uL (0.0-0.7); EOS % 1.9 % (0.0-4.0); HEMATOCRIT 39.8 % (34.0-47.0); LYMPH # 2.6 K/uL (1.0-4.3); LYMPH % 17.7 % (20.0-40.0); MEAN CELL VOLUME 89.6 fL (81.0-99.0); MEAN CORPUSCULAR HEMOGLOBIN 29.4 pg (27.0-31.0); MEAN CORPUSCULAR HGB CONC 32.8 g/dL (33.0-37.0); MEAN PLATELET VOLUME 8.6 fL (7.2-11.7); MONO # 0.9 K/uL (0.0-0.8); MONO % 6.1 % (0.0-10.0); RED CELL DISTRIBUTION WIDTH 13.3 % (11.5-14.5)
[2016-10-18 06:44] LABS: CHLORIDE 116 mmol/L (98-107); POTASSIUM 3.9 mmol/L (3.6-5.2); SODIUM 156 mmol/L (132-148)
[2016-10-18 06:46] LABS: ALB/GLOB RATIO 0.8 (1.0-2.1); ALKALINE PHOSPHATASE 96 U/L (38-126); AST/SGOT 38 U/L (14-36); BILIRUBIN,TOTAL 0.7 mg/dL (0.2-1.3); CARBON DIOXIDE 32 mmol/L (22-30); GFR AFRICAN-AMERICAN > 60
[2016-10-18 06:47] LABS: ALT/SGPT 39 U/L (9-52); BLOOD UREA NITROGEN 34 mg/dL (7-17); CALCIUM 9.9 mg/dl (8.6-10.4); GLUCOSE,RANDOM 241 mg/dL (65-105); PHOSPHOROUS 1.9 mg/dL (2.5-4.5)
[2016-10-18 06:48] LABS: MAGNESIUM 2.6 mg/dL (1.6-2.3)
[2016-10-18] MEDS ORDERED: Sodium Phosphate 15 MMOLE in Sodium Chloride 0.9% 250 ML IVPB ONE (08:45)
[2016-10-18] MEDS ORDERED: Sodium Chloride 3% 500 ML IV SCH (10:15)
[2016-10-18] MEDS: White Petrolatum/Mineral Oil Ophth Oint(3.5 gm) OU SCH ×2 (11:04→18:27)
[2016-10-18] MEDS: Pantoprazole 40 mg Susp UD PO SCH (11:04)
[2016-10-18] MEDS: Enoxaparin 40 mg Syringe SC SCH (11:05)
[2016-10-18] MEDS: cefTRIAXone 2 GM in Sodium Chloride 0.9% 100 ML IVPB SCH ×2 (11:06→23:00)
[2016-10-18] MEDS: Insulin Detemir 100 units/ml Vial (Levemir) SC SCH ×2 (11:14→23:00)
--- NOTE | 2016-10-18 11:40 | CP.CCUPN ---
<Miguel Mendez - Last Filed: 10/18/16 11:37> CCU Subjective - Physician Review Subjective (Free Text): 10/18/16 11:37 PGY-1 ICU progress note Pt seen and examined at bedside. Intubated. No overnight events. No change in mental status Critical Care Time Spent (in minutes): 35 CCU Objective - Vital Signs / Intake & Output Vital Signs (Last 4 hours): Vital Signs Temp Pulse Resp BP Pulse Ox 10/18/16 11:05 155/75 H 10/18/16 11:04 155/75 H 10/18/16 10:01 95 H 21 143/74 93 L 10/18/16 10:00 90 21 95 10/18/16 09:00 90 18 117/60 94 L 10/18/16 08:00 98.4 F 94 H 16 116/77 95 Intake and Output (Last 8hrs): Intake & Output 10/17/16 10/18/16 10/18/16 22:59 06:59 14:59 Intake Total 620 320 40 Output Total 490 660 50 Balance 130 -340 -10 Weight 217 lb 6 oz Intake: Intake, IV Amount 300 Right Medial Port 0 Internal Jugular Right Proximal Port 300 Internal Jugular Tube Feeding 320 320 40 Output: Urine 490 660 50 Urethral (Santiago) 490 660 50 - Physical Exam Head: Positive for: Atraumatic, Normocephalic Pupils: Positive for: Sluggish Mouth: Positive for: Moist Mucous Membranes Respiratory/Chest: Positive for: Rhonchi, Other (intubated) Cardiovascular: Positive for: Regular Rate and Rhythm, Normal S1, S2 Abdomen: Positive for: Normal Bowel Sounds. Negative for: Distention Upper Extremity: Positive for: NORMAL PULSES, Neurovascularly Intact Lower Extremity: Positive for: NORMAL PULSES, Neurovascularly Intact Neurological: Positive for: Other (unresponsive but is opening eyes now) Skin: Positive for: Warm, Dry - Medications Active Medications: Active Medications Generic Name Dose Route Start Last Admin Trade Name Freq PRN Reason Stop Dose Admin Acetaminophen 650 mg 10/09/16 00:41 10/11/16 02:09 Tylenol 650mg/20.3ml Solution Ud NG 650 mg Q6 PRN Administration FOR TEMP 101*F OR ABOVE Artificial Tears 1 gm 10/11/16 10:30 10/18/16 11:04 Lacri-Lube OU 1 gm BID MINI Administration Enoxaparin Sodium 40 mg 10/09/16 17:30 10/18/16 11:05 Lovenox SC 40 mg DAILY MINI Administration Furosemide 40 mg 10/13/16 10:00 10/18/16 11:04 Lasix IVP 40 mg DAILY MINI Administration Ceftriaxone Sodium 2 gm/ 100 mls @ 100 mls/hr 10/10/16 22:00 10/18/16 11:06 Sodium Chloride IVPB 100 mls/hr Q12 MINI Administration Propofol 1,000 mg in 100 mls @ 3.201 mls/hr 10/12/16 00:25 10/16/16 06:30 Diprivan IV 12 mcg/kg/min .Q24H PRN 7.683 mls/hr TITRATE PER MD ORDER Administration Protocol 5 MCG/KG/MIN Sodium Phosphate 15 mmole/ 255 mls @ 50 mls/hr 10/18/16 08:45 10/18/16 11:08 Sodium Chloride IVPB 10/18/16 13:50 50 mls/hr .Q5H6M ONE Administration Sodium Chloride 500 mls @ 50 mls/hr 10/18/16 10:15 10/18/16 11:07 Hypertonic Saline 3% IV 10/18/16 20:14 50 mls/hr .Q10H MINI Administration Insulin Aspart 0 unit 10/17/16 12:00 10/18/16 05:31 Novolog SC 4 unit Q6 MINI Administration Protocol Insulin Detemir 40 unit 10/18/16 10:08 10/18/16 11:14 Levemir SC 40 unit Q12 MINI Administration Lactulose 20 gm 10/12/16 18:00 10/18/16 11:04 Enulose NG 20 gm BID MINI Administration Lorazepam 2 mg 10/09/16 21:06 10/10/16 05:30 Ativan IVP 2 mg Q6H PRN Administration Anxiety Metoprolol Tartrate 25 mg 10/12/16 18:00 10/18/16 11:05 Lopressor NG 25 mg BID MINI Administration Pantoprazole Sodium 40 mg 10/12/16 10:00 10/18/16 11:04 Protonix Susp PO 40 mg DAILY MINI Administration - Patient Studies Lab Studies: Lab Studies 10/18/16 10/18/16 10/18/16 Range/Units 06:28 06:28 05:21 WBC 15.0 H (4.8-10.8) K/uL RBC 4.44 (3.80-5.20) Mil/uL Hgb 13.0 (11.0-16.0) g/dL Hct 39.8 (34.0-47.0) % MCV 89.6 (81.0-99.0) fL MCH 29.4 (27.0-31.0) pg MCHC 32.8 L (33.0-37.0) g/dL RDW 13.3 (11.5-14.5) % Plt Count 349 (130-400) K/uL MPV 8.6 (7.2-11.7) fL Neut % (Auto) 73.9 (50.0-75.0) % Lymph % (Auto) 17.7 L (20.0-40.0) % Hall % (Auto) 6.1 (0.0-10.0) % Eos % (Auto) 1.9 (0.0-4.0) % Baso % (Auto) 0.4 (0.0-2.0) % Neut # 11.1 H (1.8-7.0) K/uL Lymph # 2.6 (1.0-4.3) K/uL Hall # 0.9 H (0.0-0.8) K/uL Eos # 0.3 (0.0-0.7) K/uL Baso # 0.1 (0.0-0.2) K/uL Puncture Site pCO2 (35-45) mm/Hg pO2 (80-100) mm/Hg HCO3 (21-28) mmol/L ABG pH (7.35-7.45) ABG Total CO2 (22-28) mmol/L ABG O2 Saturation (95-98) % ABG Base Excess (-2.0-3.0) mmol/L ABG Hemoglobin (11.7-17.4) g/dL ABG Carboxyhemoglobin (0.5-1.5) % POC ABG HHb (Measured) (0.0-5.0) % ABG Methemoglobin (0.0-3.0) % Nico Test A-a O2 Difference mm/Hg Respiratory Index Hgb O2 Saturation (95.0-98.0) % Mechanical Rate FiO2 % Tidal Volume PEEP Sodium 156 H (132-148) mmol/L Potassium 3.9 (3.6-5.2) mmol/L Chloride 116 H (98-107) mmol/L Carbon Dioxide 32 H (22-30) mmol/L Anion Gap 12 (10-20) BUN 34 H (7-17) mg/dL Creatinine 0.6 L (0.7-1.2) MG/DL Est GFR ( Amer) > 60 Est GFR (Non-Af Amer) > 60 POC Glucose (mg/dL) 225 H (65-110) mg/dL Random Glucose 241 H (65-105) mg/dL Calcium 9.9 (8.6-10.4) mg/dl Phosphorus 1.9 L (2.5-4.5) mg/dL Magnesium 2.6 H (1.6-2.3) mg/dL Total Bilirubin 0.7 (0.2-1.3) mg/dL AST 38 H (14-36) U/L ALT 39 (9-52) U/L Alkaline Phosphatase 96 (38-126) U/L Total Protein 7.0 (6.3-8.3) g/dL Albumin 3.0 L (3.5-5.0) g/dL Globulin 4.0 H (2.2-3.9) gm/dL Albumin/Globulin Ratio 0.8 L (1.0-2.1) 10/18/16 10/18/16 10/17/16 Range/Units 04:35 00:03 21:52 WBC (4.8-10.8) K/uL RBC (3.80-5.20) Mil/uL Hgb (11.0-16.0) g/dL Hct (34.0-47.0) % MCV (81.0-99.0) fL MCH (27.0-31.0) pg MCHC (33.0-37.0) g/dL RDW (11.5-14.5) % Plt Count (130-400) K/uL MPV (7.2-11.7) fL Neut % (Auto) (50.0-75.0) % Lymph % (Auto) (20.0-40.0) % Hall % (Auto) (0.0-10.0) % Eos % (Auto) (0.0-4.0) % Baso % (Auto) (0.0-2.0) % Neut # (1.8-7.0) K/uL Lymph # (1.0-4.3) K/uL Hall # (0.0-0.8) K/uL Eos # (0.0-0.7) K/uL Baso # (0.0-0.2) K/uL Puncture Site Rr pCO2 44 (35-45) mm/Hg pO2 74 L (80-100) mm/Hg HCO3 29.6 H (21-28) mmol/L ABG pH 7.46 H (7.35-7.45) ABG Total CO2 32.7 H (22-28) mmol/L ABG O2 Saturation 96.2 (95-98) % ABG Base Excess 6.2 H (-2.0-3.0) mmol/L ABG Hemoglobin 21.3 H (11.7-17.4) g/dL ABG Carboxyhemoglobin 1.7 H (0.5-1.5) % POC ABG HHb (Measured) 3.7 (0.0-5.0) % ABG Methemoglobin 0.6 (0.0-3.0) % Nico Test Pos A-a O2 Difference 85.0 mm/Hg Respiratory Index 1.1 Hgb O2 Saturation 94.0 L (95.0-98.0) % Mechanical Rate 12 FiO2 30.0 % Tidal Volume 500 PEEP 5 Sodium 156 H (132-148) mmol/L Potassium 4.1 (3.6-5.2) mmol/L Chloride 116 H (98-107) mmol/L Carbon Dioxide 32 H (22-30) mmol/L Anion Gap 12 (10-20) BUN 32 H (7-17) mg/dL Creatinine 0.5 L (0.7-1.2) MG/DL Est GFR ( Amer) > 60 Est GFR (Non-Af Amer) > 60 POC Glucose (mg/dL) 302 H (65-110) mg/dL Random Glucose 347 H (65-105) mg/dL Calcium 9.8 (8.6-10.4) mg/dl Phosphorus (2.5-4.5) mg/dL Magnesium (1.6-2.3) mg/dL Total Bilirubin (0.2-1.3) mg/dL AST (14-36) U/L ALT (9-52) U/L Alkaline Phosphatase (38-126) U/L Total Protein (6.3-8.3) g/dL Albumin (3.5-5.0) g/dL Globulin (2.2-3.9) gm/dL Albumin/Globulin Ratio (1.0-2.1) 10/17/16 10/17/16 10/17/16 Range/Units 19:54 17:54 16:03 WBC (4.8-10.8) K/uL RBC (3.80-5.20) Mil/uL Hgb (11.0-16.0) g/dL Hct (34.0-47.0) % MCV (81.0-99.0) fL MCH (27.0-31.0) pg MCHC (33.0-37.0) g/dL RDW (11.5-14.5) % Plt Count (130-400) K/uL MPV (7.2-11.7) fL Neut % (Auto) (50.0-75.0) % Lymph % (Auto) (20.0-40.0) % Hall % (Auto) (0.0-10.0) % Eos % (Auto) (0.0-4.0) % Baso % (Auto) (0.0-2.0) % Neut # (1.8-7.0) K/uL Lymph # (1.0-4.3) K/uL Hall # (0.0-0.8) K/uL Eos # (0.0-0.7) K/uL Baso # (0.0-0.2) K/uL Puncture Site pCO2 (35-45) mm/Hg pO2 (80-100) mm/Hg HCO3 (21-28) mmol/L ABG pH (7.35-7.45) ABG Total CO2 (22-28) mmol/L ABG O2 Saturation (95-98) % ABG Base Excess (-2.0-3.0) mmol/L ABG Hemoglobin (11.7-17.4) g/dL ABG Carboxyhemoglobin (0.5-1.5) % POC ABG HHb (Measured) (0.0-5.0) % ABG Methemoglobin (0.0-3.0) % Nico Test A-a O2 Difference mm/Hg Respiratory Index Hgb O2 Saturation (95.0-98.0) % Mechanical Rate FiO2 % Tidal Volume PEEP Sodium (132-148) mmol/L Potassium (3.6-5.2) mmol/L Chloride (98-107) mmol/L Carbon Dioxide (22-30) mmol/L Anion Gap (10-20) BUN (7-17) mg/dL Creatinine (0.7-1.2) MG/DL Est GFR ( Amer) Est GFR (Non-Af Amer) POC Glucose (mg/dL) 324 H 300 H 330 H (65-110) mg/dL Random Glucose (65-105) mg/dL Calcium (8.6-10.4) mg/dl Phosphorus (2.5-4.5) mg/dL Magnesium (1.6-2.3) mg/dL Total Bilirubin (0.2-1.3) mg/dL AST (14-36) U/L ALT (9-52) U/L Alkaline Phosphatase (38-126) U/L Total Protein (6.3-8.3) g/dL Albumin (3.5-5.0) g/dL Globulin (2.2-3.9) gm/dL Albumin/Globulin Ratio (1.0-2.1) 10/17/16 Range/Units 12:37 WBC (4.8-10.8) K/uL RBC (3.80-5.20) Mil/uL Hgb (11.0-16.0) g/dL Hct (34.0-47.0) % MCV (81.0-99.0) fL MCH (27.0-31.0) pg MCHC (33.0-37.0) g/dL RDW (11.5-14.5) % Plt Count (130-400) K/uL MPV (7.2-11.7) fL Neut % (Auto) (50.0-75.0) % Lymph % (Auto) (20.0-40.0) % Hall % (Auto) (0.0-10.0) % Eos % (Auto) (0.0-4.0) % Baso % (Auto) (0.0-2.0) % Neut # (1.8-7.0) K/uL Lymph # (1.0-4.3) K/uL Hall # (0.0-0.8) K/uL Eos # (0.0-0.7) K/uL Baso # (0.0-0.2) K/uL Puncture Site pCO2 (35-45) mm/Hg pO2 (80-100) mm/Hg HCO3 (21-28) mmol/L ABG pH (7.35-7.45) ABG Total CO2 (22-28) mmol/L ABG O2 Saturation (95-98) % ABG Base Excess (-2.0-3.0) mmol/L ABG Hemoglobin (11.7-17.4) g/dL ABG Carboxyhemoglobin (0.5-1.5) % POC ABG HHb (Measured) (0.0-5.0) % ABG Methemoglobin (0.0-3.0) % Nico Test A-a O2 Difference mm/Hg Respiratory Index Hgb O2 Saturation (95.0-98.0) % Mechanical Rate FiO2 % Tidal Volume PEEP Sodium (132-148) mmol/L Potassium (3.6-5.2) mmol/L Chloride (98-107) mmol/L Carbon Dioxide (22-30) mmol/L Anion Gap (10-20) BUN (7-17) mg/dL Creatinine (0.7-1.2) MG/DL Est GFR ( Amer) Est GFR (Non-Af Amer) POC Glucose (mg/dL) 338 H (65-110) mg/dL Random Glucose (65-105) mg/dL Calcium (8.6-10.4) mg/dl Phosphorus (2.5-4.5) mg/dL Magnesium (1.6-2.3) mg/dL Total Bilirubin (0.2-1.3) mg/dL AST (14-36) U/L ALT (9-52) U/L Alkaline Phosphatase (38-126) U/L Total Protein (6.3-8.3) g/dL Albumin (3.5-5.0) g/dL Globulin (2.2-3.9) gm/dL Albumin/Globulin Ratio (1.0-2.1) Laboratory Results - last 24 hr 10/17/16 10/17/16 10/17/16 12:37 16:03 17:54 WBC RBC Hgb Hct MCV MCH MCHC RDW Plt Count MPV Neut % (Auto) Lymph % (Auto) Hall % (Auto) Eos % (Auto) Baso % (Auto) Neut # Lymph # Hall # Eos # Baso # Puncture Site pCO2 pO2 HCO3 ABG pH ABG Total CO2 ABG O2 Saturation ABG Base Excess ABG Hemoglobin ABG Carboxyhemoglobin POC ABG HHb (Measured) ABG Methemoglobin Nico Test A-a O2 Difference Respiratory Index Hgb O2 Saturation Mechanical Rate FiO2 Tidal Volume PEEP Sodium Potassium Chloride Carbon Dioxide Anion Gap BUN Creatinine Est GFR ( Amer) Est GFR (Non-Af Amer) POC Glucose (mg/dL) 338 H 330 H 300 H Random Glucose Calcium Phosphorus Magnesium Total Bilirubin AST ALT Alkaline Phosphatase Total Protein Albumin Globulin Albumin/Globulin Ratio 10/17/16 10/17/16 10/18/16 19:54 21:52 00:03 WBC RBC Hgb Hct MCV MCH MCHC RDW Plt Count MPV Neut % (Auto) Lymph % (Auto) Hall % (Auto) Eos % (Auto) Baso % (Auto) Neut # Lymph # Hall # Eos # Baso # Puncture Site pCO2 pO2 HCO3 ABG pH ABG Total CO2 ABG O2 Saturation ABG Base Excess ABG Hemoglobin ABG Carboxyhemoglobin POC ABG HHb (Measured) ABG Methemoglobin Nico Test A-a O2 Difference Respiratory Index Hgb O2 Saturation Mechanical Rate FiO2 Tidal Volume PEEP Sodium 156 H Potassium 4.1 Chloride 116 H Carbon Dioxide 32 H Anion Gap 12 BUN 32 H Creatinine 0.5 L Est GFR ( Amer) > 60 Est GFR (Non-Af Amer) > 60 POC Glucose (mg/dL) 324 H 302 H Random Glucose 347 H Calcium 9.8 Phosphorus Magnesium Total Bilirubin AST ALT Alkaline Phosphatase Total Protein Albumin Globulin Albumin/Globulin Ratio 10/18/16 10/18/16 10/18/16 04:35 05:21 06:28 WBC 15.0 H RBC 4.44 Hgb 13.0 Hct 39.8 MCV 89.6 MCH 29.4 MCHC 32.8 L RDW 13.3 Plt Count 349 MPV 8.6 Neut % (Auto) 73.9 Lymph % (Auto) 17.7 L Hall % (Auto) 6.1 Eos % (Auto) 1.9 Baso % (Auto) 0.4 Neut # 11.1 H Lymph # 2.6 Hall # 0.9 H Eos # 0.3 Baso # 0.1 Puncture Site Rr pCO2 44 pO2 74 L HCO3 29.6 H ABG pH 7.46 H ABG Total CO2 32.7 H ABG O2 Saturation 96.2 ABG Base Excess 6.2 H ABG Hemoglobin 21.3 H ABG Carboxyhemoglobin 1.7 H POC ABG HHb (Measured) 3.7 ABG Methemoglobin 0.6 Nico Test Pos A-a O2 Difference 85.0 Respiratory Index 1.1 Hgb O2 Saturation 94.0 L Mechanical Rate 12 FiO2 30.0 Tidal Volume 500 PEEP 5 Sodium Potassium Chloride Carbon Dioxide Anion Gap BUN Creatinine Est GFR ( Amer) Est GFR (Non-Af Amer) POC Glucose (mg/dL) 225 H Random Glucose Calcium Phosphorus Magnesium Total Bilirubin AST ALT Alkaline Phosphatase Total Protein Albumin Globulin Albumin/Globulin Ratio 10/18/16 06:28 WBC RBC Hgb Hct MCV MCH MCHC RDW Plt Count MPV Neut % (Auto) Lymph % (Auto) Hall % (Auto) Eos % (Auto) Baso % (Auto) Neut # Lymph # Hall # Eos # Baso # Puncture Site pCO2 pO2 HCO3 ABG pH ABG Total CO2 ABG O2 Saturation ABG Base Excess ABG Hemoglobin ABG Carboxyhemoglobin POC ABG HHb (Measured) ABG Methemoglobin Nico Test A-a O2 Difference Respiratory Index Hgb O2 Saturation Mechanical Rate FiO2 Tidal Volume PEEP Sodium 156 H Potassium 3.9 Chloride 116 H Carbon Dioxide 32 H Anion Gap 12 BUN 34 H Creatinine 0.6 L Est GFR ( Amer) > 60 Est GFR (Non-Af Amer) > 60 POC Glucose (mg/dL) Random Glucose 241 H Calcium 9.9 Phosphorus 1.9 L Magnesium 2.6 H Total Bilirubin 0.7 AST 38 H ALT 39 Alkaline Phosphatase 96 Total Protein 7.0 Albumin 3.0 L Globulin 4.0 H Albumin/Globulin Ratio 0.8 L Fingerstick Blood Sugar Results: 302 Review of Systems - Review of Systems Systems not reviewed;Unavailable: Intubated Assessment/Plan - Assessment and Plan (Free Text) Assessment: 61F with severe sepsis/MOSF likely 2/2 meningitis (most likely S. pneumo); s. pneumo bacteremia and poss pna; acute hypoxic resp failure, intubated Plan: Neuro: Sedation off, opening eyes. Still unresponsive to verbal and tactile stimuli. Triggering vent Neuro following Maintain serum Na 145-150, elevated today at 156 s/p hypertonic saline MRI when possible - consider transfer to facility with MRI capable equipment Latest CT head shows concern for multifocal ischemia - needs MRI to assess further Cardiovascular: Hemodynamically stable. No acute issues Monitor Pulmonary: Intubated. Saturating well. Will attempt CPAP today again Continue rocephin Gastrointestinal: No acute issues, on tube feeds, tolerating well. Hematology: No acute issues Endocrine: Will increase Levemir to 40 units q12h Cont high dose sliding scale coverage as well accucheck q6h Renal: Monitor electrolytes Strict I/O - good urine output Infectious Disease: Likely strep pneumo meningitis - CSF cultures negative (drawn after abx initiation) Continue Rocephin ID following Pt received 4 days of high dose steroids, d/c'ed now GI Prophylaxis: Protonix DVT Prophylaxis: Lovenox <Jack Roa - Last Filed: 10/18/16 15:02> CCU Objective - Vital Signs / Intake & Output Vital Signs (Last 4 hours): Vital Signs Pulse Resp BP Pulse Ox 10/18/16 12:00 87 26 H 127/57 L 93 L 10/18/16 11:05 155/75 H 10/18/16 11:04 155/75 H 10/18/16 11:00 98 H 20 155/75 H 94 L Intake and Output (Last 8hrs): Intake & Output 10/17/16 10/18/16 10/18/16 22:59 06:59 14:59 Intake Total 620 320 540 Output Total 490 660 600 Balance 130 -340 -60 Weight 217 lb 6 oz Intake: Intake, IV Amount 300 300 Right Jug TLC Distal 100 Right Jug TLC Medial 100 Right Jug TLC Proximal 100 Right Medial Port 0 Internal Jugular Right Proximal Port 300 Internal Jugular Tube Feeding 320 320 240 Output: Urine 490 660 600 Urethral (Santiago) 490 660 600 - Medications Active Medications: Active Medications Generic Name Dose Route Start Last Admin Trade Name Freq PRN Reason Stop Dose Admin Acetaminophen 650 mg 10/09/16 00:41 10/11/16 02:09 Tylenol 650mg/20.3ml Solution Ud NG 650 mg Q6 PRN Administration FOR TEMP 101*F OR ABOVE Artificial Tears 1 gm 10/11/16 10:30 10/18/16 11:04 Lacri-Lube OU 1 gm BID MINI Administration Enoxaparin Sodium 40 mg 10/09/16 17:30 10/18/16 11:05 Lovenox SC 40 mg DAILY MINI Administration Furosemide 40 mg 10/13/16 10:00 10/18/16 11:04 Lasix IVP 40 mg DAILY MINI Administration Ceftriaxone Sodium 2 gm/ 100 mls @ 100 mls/hr 10/10/16 22:00 10/18/16 11:06 Sodium Chloride IVPB 100 mls/hr Q12 MINI Administration Propofol 1,000 mg in 100 mls @ 3.201 mls/hr 10/12/16 00:25 10/16/16 06:30 Diprivan IV 12 mcg/kg/min .Q24H PRN 7.683 mls/hr TITRATE PER MD ORDER Administration Protocol 5 MCG/KG/MIN Sodium Chloride 500 mls @ 50 mls/hr 10/18/16 10:15 10/18/16 11:07 Hypertonic Saline 3% IV 10/18/16 20:14 50 mls/hr .Q10H MINI Administration Insulin Aspart 0 unit 10/17/16 12:00 10/18/16 12:29 Novolog SC 4 unit Q6 MINI Administration Protocol Insulin Detemir 40 unit 10/18/16 10:08 10/18/16 11:14 Levemir SC 40 unit Q12 MINI Administration Lactulose 20 gm 10/12/16 18:00 10/18/16 11:04 Enulose NG 20 gm BID MINI Administration Lorazepam 2 mg 10/09/16 21:06 10/10/16 05:30 Ativan IVP 2 mg Q6H PRN Administration Anxiety Metoprolol Tartrate 25 mg 10/12/16 18:00 10/18/16 11:05 Lopressor NG 25 mg BID MINI Administration Pantoprazole Sodium 40 mg 10/12/16 10:00 10/18/16 11:04 Protonix Susp PO 40 mg DAILY MINI Administration - Patient Studies Lab Studies: Lab Studies 06/07/0510/18/16 10/18/16 Range/Units 12:17 06:28 06:28 WBC 15.0 H (4.8-10.8) K/uL RBC 4.44 (3.80-5.20) Mil/uL Hgb 13.0 (11.0-16.0) g/dL Hct 39.8 (34.0-47.0) % MCV 89.6 (81.0-99.0) fL MCH 29.4 (27.0-31.0) pg MCHC 32.8 L (33.0-37.0) g/dL RDW 13.3 (11.5-14.5) % Plt Count 349 (130-400) K/uL MPV 8.6 (7.2-11.7) fL Neut % (Auto) 73.9 (50.0-75.0) % Lymph % (Auto) 17.7 L (20.0-40.0) % Hall % (Auto) 6.1 (0.0-10.0) % Eos % (Auto) 1.9 (0.0-4.0) % Baso % (Auto) 0.4 (0.0-2.0) % Neut # 11.1 H (1.8-7.0) K/uL Lymph # 2.6 (1.0-4.3) K/uL Hall # 0.9 H (0.0-0.8) K/uL Eos # 0.3 (0.0-0.7) K/uL Baso # 0.1 (0.0-0.2) K/uL Puncture Site pCO2 (35-45) mm/Hg pO2 (80-100) mm/Hg HCO3 (21-28) mmol/L ABG pH (7.35-7.45) ABG Total CO2 (22-28) mmol/L ABG O2 Saturation (95-98) % ABG Base Excess (-2.0-3.0) mmol/L ABG Hemoglobin (11.7-17.4) g/dL ABG Carboxyhemoglobin (0.5-1.5) % POC ABG HHb (Measured) (0.0-5.0) % ABG Methemoglobin (0.0-3.0) % Nico Test A-a O2 Difference mm/Hg Respiratory Index Hgb O2 Saturation (95.0-98.0) % Mechanical Rate FiO2 % Tidal Volume PEEP Sodium 156 H (132-148) mmol/L Potassium 3.9 (3.6-5.2) mmol/L Chloride 116 H (98-107) mmol/L Carbon Dioxide 32 H (22-30) mmol/L Anion Gap 12 (10-20) BUN 34 H (7-17) mg/dL Creatinine 0.6 L (0.7-1.2) MG/DL Est GFR ( Amer) > 60 Est GFR (Non-Af Amer) > 60 POC Glucose (mg/dL) 237 H (65-110) mg/dL Random Glucose 241 H (65-105) mg/dL Calcium 9.9 (8.6-10.4) mg/dl Phosphorus 1.9 L (2.5-4.5) mg/dL Magnesium 2.6 H (1.6-2.3) mg/dL Total Bilirubin 0.7 (0.2-1.3) mg/dL AST 38 H (14-36) U/L ALT 39 (9-52) U/L Alkaline Phosphatase 96 (38-126) U/L Total Protein 7.0 (6.3-8.3) g/dL Albumin 3.0 L (3.5-5.0) g/dL Globulin 4.0 H (2.2-3.9) gm/dL Albumin/Globulin Ratio 0.8 L (1.0-2.1) 10/18/16 10/18/16 10/18/16 Range/Units 05:21 04:35 00:03 WBC (4.8-10.8) K/uL RBC (3.80-5.20) Mil/uL Hgb (11.0-16.0) g/dL Hct (34.0-47.0) % MCV (81.0-99.0) fL MCH (27.0-31.0) pg MCHC (33.0-37.0) g/dL RDW (11.5-14.5) % Plt Count (130-400) K/uL MPV (7.2-11.7) fL Neut % (Auto) (50.0-75.0) % Lymph % (Auto) (20.0-40.0) % Hall % (Auto) (0.0-10.0) % Eos % (Auto) (0.0-4.0) % Baso % (Auto) (0.0-2.0) % Neut # (1.8-7.0) K/uL Lymph # (1.0-4.3) K/uL Hall # (0.0-0.8) K/uL Eos # (0.0-0.7) K/uL Baso # (0.0-0.2) K/uL Puncture Site Rr pCO2 44 (35-45) mm/Hg pO2 74 L (80-100) mm/Hg HCO3 29.6 H (21-28) mmol/L ABG pH 7.46 H (7.35-7.45) ABG Total CO2 32.7 H (22-28) mmol/L ABG O2 Saturation 96.2 (95-98) % ABG Base Excess 6.2 H (-2.0-3.0) mmol/L ABG Hemoglobin 21.3 H (11.7-17.4) g/dL ABG Carboxyhemoglobin 1.7 H (0.5-1.5) % POC ABG HHb (Measured) 3.7 (0.0-5.0) % ABG Methemoglobin 0.6 (0.0-3.0) % Nico Test Pos A-a O2 Difference 85.0 mm/Hg Respiratory Index 1.1 Hgb O2 Saturation 94.0 L (95.0-98.0) % Mechanical Rate 12 FiO2 30.0 % Tidal Volume 500 PEEP 5 Sodium (132-148) mmol/L Potassium (3.6-5.2) mmol/L Chloride (98-107) mmol/L Carbon Dioxide (22-30) mmol/L Anion Gap (10-20) BUN (7-17) mg/dL Creatinine (0.7-1.2) MG/DL Est GFR ( Amer) Est GFR (Non-Af Amer) POC Glucose (mg/dL) 225 H 302 H (65-110) mg/dL Random Glucose (65-105) mg/dL Calcium (8.6-10.4) mg/dl Phosphorus (2.5-4.5) mg/dL Magnesium (1.6-2.3) mg/dL Total Bilirubin (0.2-1.3) mg/dL AST (14-36) U/L ALT (9-52) U/L Alkaline Phosphatase (38-126) U/L Total Protein (6.3-8.3) g/dL Albumin (3.5-5.0) g/dL Globulin (2.2-3.9) gm/dL Albumin/Globulin Ratio (1.0-2.1) 10/17/16 10/17/16 10/17/16 Range/Units 21:52 19:54 17:54 WBC (4.8-10.8) K/uL RBC (3.80-5.20) Mil/uL Hgb (11.0-16.0) g/dL Hct (34.0-47.0) % MCV (81.0-99.0) fL MCH (27.0-31.0) pg MCHC (33.0-37.0) g/dL RDW (11.5-14.5) % Plt Count (130-400) K/uL MPV (7.2-11.7) fL Neut % (Auto) (50.0-75.0) % Lymph % (Auto) (20.0-40.0) % Hall % (Auto) (0.0-10.0) % Eos % (Auto) (0.0-4.0) % Baso % (Auto) (0.0-2.0) % Neut # (1.8-7.0) K/uL Lymph # (1.0-4.3) K/uL Hall # (0.0-0.8) K/uL Eos # (0.0-0.7) K/uL Baso # (0.0-0.2) K/uL Puncture Site pCO2 (35-45) mm/Hg pO2 (80-100) mm/Hg HCO3 (21-28) mmol/L ABG pH (7.35-7.45) ABG Total CO2 (22-28) mmol/L ABG O2 Saturation (95-98) % ABG Base Excess (-2.0-3.0) mmol/L ABG Hemoglobin (11.7-17.4) g/dL ABG Carboxyhemoglobin (0.5-1.5) % POC ABG HHb (Measured) (0.0-5.0) % ABG Methemoglobin (0.0-3.0) % Nico Test A-a O2 Difference mm/Hg Respiratory Index Hgb O2 Saturation (95.0-98.0) % Mechanical Rate FiO2 % Tidal Volume PEEP Sodium 156 H (132-148) mmol/L Potassium 4.1 (3.6-5.2) mmol/L Chloride 116 H (98-107) mmol/L Carbon Dioxide 32 H (22-30) mmol/L Anion Gap 12 (10-20) BUN 32 H (7-17) mg/dL Creatinine 0.5 L (0.7-1.2) MG/DL Est GFR ( Amer) > 60 Est GFR (Non-Af Amer) > 60 POC Glucose (mg/dL) 324 H 300 H (65-110) mg/dL Random Glucose 347 H (65-105) mg/dL Calcium 9.8 (8.6-10.4) mg/dl Phosphorus (2.5-4.5) mg/dL Magnesium (1.6-2.3) mg/dL Total Bilirubin (0.2-1.3) mg/dL AST (14-36) U/L ALT (9-52) U/L Alkaline Phosphatase (38-126) U/L Total Protein (6.3-8.3) g/dL Albumin (3.5-5.0) g/dL Globulin (2.2-3.9) gm/dL Albumin/Globulin Ratio (1.0-2.1) 10/17/16 Range/Units 16:03 WBC (4.8-10.8) K/uL RBC (3.80-5.20) Mil/uL Hgb (11.0-16.0) g/dL Hct (34.0-47.0) % MCV (81.0-99.0) fL MCH (27.0-31.0) pg MCHC (33.0-37.0) g/dL RDW (11.5-14.5) % Plt Count (130-400) K/uL MPV (7.2-11.7) fL Neut % (Auto) (50.0-75.0) % Lymph % (Auto) (20.0-40.0) % Hall % (Auto) (0.0-10.0) % Eos % (Auto) (0.0-4.0) % Baso % (Auto) (0.0-2.0) % Neut # (1.8-7.0) K/uL Lymph # (1.0-4.3) K/uL Hall # (0.0-0.8) K/uL Eos # (0.0-0.7) K/uL Baso # (0.0-0.2) K/uL Puncture Site pCO2 (35-45) mm/Hg pO2 (80-100) mm/Hg HCO3 (21-28) mmol/L ABG pH (7.35-7.45) ABG Total CO2 (22-28) mmol/L ABG O2 Saturation (95-98) % ABG Base Excess (-2.0-3.0) mmol/L ABG Hemoglobin (11.7-17.4) g/dL ABG Carboxyhemoglobin (0.5-1.5) % POC ABG HHb (Measured) (0.0-5.0) % ABG Methemoglobin (0.0-3.0) % Nico Test A-a O2 Difference mm/Hg Respiratory Index Hgb O2 Saturation (95.0-98.0) % Mechanical Rate FiO2 % Tidal Volume PEEP Sodium (132-148) mmol/L Potassium (3.6-5.2) mmol/L Chloride (98-107) mmol/L Carbon Dioxide (22-30) mmol/L Anion Gap (10-20) BUN (7-17) mg/dL Creatinine (0.7-1.2) MG/DL Est GFR ( Amer) Est GFR (Non-Af Amer) POC Glucose (mg/dL) 330 H (65-110) mg/dL Random Glucose (65-105) mg/dL Calcium (8.6-10.4) mg/dl Phosphorus (2.5-4.5) mg/dL Magnesium (1.6-2.3) mg/dL Total Bilirubin (0.2-1.3) mg/dL AST (14-36) U/L ALT (9-52) U/L Alkaline Phosphatase (38-126) U/L Total Protein (6.3-8.3) g/dL Albumin (3.5-5.0) g/dL Globulin (2.2-3.9) gm/dL Albumin/Globulin Ratio (1.0-2.1) Laboratory Results - last 24 hr 10/17/16 10/17/16 10/17/16 16:03 17:54 19:54 WBC RBC Hgb Hct MCV MCH MCHC RDW Plt Count MPV Neut % (Auto) Lymph % (Auto) Hall % (Auto) Eos % (Auto) Baso % (Auto) Neut # Lymph # Hall # Eos # Baso # Puncture Site pCO2 pO2 HCO3 ABG pH ABG Total CO2 ABG O2 Saturation ABG Base Excess ABG Hemoglobin ABG Carboxyhemoglobin POC ABG HHb (Measured) ABG Methemoglobin Nico Test A-a O2 Difference Respiratory Index Hgb O2 Saturation Mechanical Rate FiO2 Tidal Volume PEEP Sodium Potassium Chloride Carbon Dioxide Anion Gap BUN Creatinine Est GFR ( Amer) Est GFR (Non-Af Amer) POC Glucose (mg/dL) 330 H 300 H 324 H Random Glucose Calcium Phosphorus Magnesium Total Bilirubin AST ALT Alkaline Phosphatase Total Protein Albumin Globulin Albumin/Globulin Ratio 10/17/16 10/18/16 10/18/16 21:52 00:03 04:35 WBC RBC Hgb Hct MCV MCH MCHC RDW Plt Count MPV Neut % (Auto) Lymph % (Auto) Hall % (Auto) Eos % (Auto) Baso % (Auto) Neut # Lymph # Hall # Eos # Baso # Puncture Site Rr pCO2 44 pO2 74 L HCO3 29.6 H ABG pH 7.46 H ABG Total CO2 32.7 H ABG O2 Saturation 96.2 ABG Base Excess 6.2 H ABG Hemoglobin 21.3 H ABG Carboxyhemoglobin 1.7 H POC ABG HHb (Measured) 3.7 ABG Methemoglobin 0.6 Nico Test Pos A-a O2 Difference 85.0 Respiratory Index 1.1 Hgb O2 Saturation 94.0 L Mechanical Rate 12 FiO2 30.0 Tidal Volume 500 PEEP 5 Sodium 156 H Potassium 4.1 Chloride 116 H Carbon Dioxide 32 H Anion Gap 12 BUN 32 H Creatinine 0.5 L Est GFR ( Amer) > 60 Est GFR (Non-Af Amer) > 60 POC Glucose (mg/dL) 302 H Random Glucose 347 H Calcium 9.8 Phosphorus Magnesium Total Bilirubin AST ALT Alkaline Phosphatase Total Protein Albumin Globulin Albumin/Globulin Ratio 10/18/16 10/18/16 10/18/16 05:21 06:28 06:28 WBC 15.0 H RBC 4.44 Hgb 13.0 Hct 39.8 MCV 89.6 MCH 29.4 MCHC 32.8 L RDW 13.3 Plt Count 349 MPV 8.6 Neut % (Auto) 73.9 Lymph % (Auto) 17.7 L Hall % (Auto) 6.1 Eos % (Auto) 1.9 Baso % (Auto) 0.4 Neut # 11.1 H Lymph # 2.6 Hall # 0.9 H Eos # 0.3 Baso # 0.1 Puncture Site pCO2 pO2 HCO3 ABG pH ABG Total CO2 ABG O2 Saturation ABG Base Excess ABG Hemoglobin ABG Carboxyhemoglobin POC ABG HHb (Measured) ABG Methemoglobin Nico Test A-a O2 Difference Respiratory Index Hgb O2 Saturation Mechanical Rate FiO2 Tidal Volume PEEP Sodium 156 H Potassium 3.9 Chloride 116 H Carbon Dioxide 32 H Anion Gap 12 BUN 34 H Creatinine 0.6 L Est GFR ( Amer) > 60 Est GFR (Non-Af Amer) > 60 POC Glucose (mg/dL) 225 H Random Glucose 241 H Calcium 9.9 Phosphorus 1.9 L Magnesium 2.6 H Total Bilirubin 0.7 AST 38 H ALT 39 Alkaline Phosphatase 96 Total Protein 7.0 Albumin 3.0 L Globulin 4.0 H Albumin/Globulin Ratio 0.8 L 10/18/16 12:17 WBC RBC Hgb Hct MCV MCH MCHC RDW Plt Count MPV Neut % (Auto) Lymph % (Auto) Hall % (Auto) Eos % (Auto) Baso % (Auto) Neut # Lymph # Hall # Eos # Baso # Puncture Site pCO2 pO2 HCO3 ABG pH ABG Total CO2 ABG O2 Saturation ABG Base Excess ABG Hemoglobin ABG Carboxyhemoglobin POC ABG HHb (Measured) ABG Methemoglobin Nico Test A-a O2 Difference Respiratory Index Hgb O2 Saturation Mechanical Rate FiO2 Tidal Volume PEEP Sodium Potassium Chloride Carbon Dioxide Anion Gap BUN Creatinine Est GFR ( Amer) Est GFR (Non-Af Amer) POC Glucose (mg/dL) 237 H Random Glucose Calcium Phosphorus Magnesium Total Bilirubin AST ALT Alkaline Phosphatase Total Protein Albumin Globulin Albumin/Globulin Ratio Attending/Attestation - Attestation I have personally seen and examined this patient.: Yes I have fully participated in the care of the patient.: Yes I have reviewed all pertinent clinical information: Yes Notes (Text): 10/18/16 14:59 I have seen and examined the patient. Medical records, lab studies, and imaging were reviewed by me and a management plan was formulated on multidisciplinary rounds with resident . I agree with their above documented assessment and plan. Patient not tolerating PS trials consistently. Patient's mental status has not improved with hypertonic saline for tx of cerebral edema. Will have to talk to patient's family about goals of care. May have to consider transfer to obtain MRI of brain to gain a better idea of patient's prognosis, stroke vs septic emboli vs abscess vs cerebral edema alone. Critical Care Time 45 minutes. Multi-disciplinary rounds were performed with house staff, nursing, speech therapy, respiratory therapy, pharmacy and nutrition with integrated input from the primary team/attending and other consulting services. The documented time is cumulative and includes review of patient data/exams/labs/chart review and examination of the patient on rounds and throughout the day; time is exclusive of any procedures or teaching time.
--- NOTE | 2016-10-18 11:59 | RAD ---
PROCEDURE: CHEST RADIOGRAPH, 1 VIEW HISTORY: Verify right PICC COMPARISON: Comparison chest 10/18/2016 at 06:57 hours. FINDINGS: LUNGS: Right sided PICC line with tip SVC. Right IJ central venous line is also present the tip in the SVC as well. In situ ETT, tip of which lies approximately 4.6 cm above pia. NGT is present, the, tip of which has not been included on this film though distal aspect does lie well below EG junction. Vague patchy opacity in the left mid to lower lung field could represent developing atelectasis and or infiltrate. Suspect minor right basilar atelectasis. PLEURA: No pneumothorax or pleural fluid seen. CARDIOVASCULAR: Normal. OSSEOUS STRUCTURES: No significant abnormalities. VISUALIZED UPPER ABDOMEN: Normal. OTHER FINDINGS: None. IMPRESSION: Print support lines and tubes as above. Vague patchy opacity in the left mid to lower lung field could represent developing atelectasis and or infiltrate. Suspect minor right basilar atelectasis.
--- NOTE | 2016-10-18 14:07 | RAD ---
HISTORY: intubated COMPARISON: No prior. FINDINGS: LUNGS: No active pulmonary disease. PLEURA: No significant pleural effusion identified, no pneumothorax apparent. CARDIOVASCULAR: Normal. OSSEOUS STRUCTURES: No significant abnormalities. VISUALIZED UPPER ABDOMEN: Normal. OTHER FINDINGS: ETT above the pia. Right CVP line tip overlies the right atrium/SVC junction. IMPRESSION: No acute infiltrate.
--- NOTE | 2016-10-18 18:17 | CP.PCM.PN ---
Subjective - Date & Time of Evaluation Date of Evaluation: 10/18/16 Time of Evaluation: 10:00 - Subjective Subjective: rx in progress may need trach/peg Objective - Vital Signs/Intake and Output Vital Signs (last 24 hours): Temp Pulse Resp BP Pulse Ox 98.4 F 91 H 15 160/75 H 91 L 10/18/16 08:00 10/18/16 16:01 10/18/16 16:01 10/18/16 16:01 10/18/16 16:01 Intake and Output: 10/18/16 10/18/16 06:59 18:59 Intake Total 780 540 Output Total 910 600 Balance -130 -60 - Medications Medications: Current Medications Acetaminophen (Tylenol 650mg/20.3ml Solution Ud) 650 mg NG Q6 PRN PRN Reason: FOR TEMP 101*F OR ABOVE Last Admin: 10/11/16 02:09 Dose: 650 mg Artificial Tears (Lacri-Lube) 1 gm OU BID [facility] Last Admin: 10/18/16 11:04 Dose: 1 gm Enoxaparin Sodium (Lovenox) 40 mg SC DAILY [facility] Last Admin: 10/18/16 11:05 Dose: 40 mg Furosemide (Lasix) 40 mg IVP DAILY [facility] Last Admin: 10/18/16 11:04 Dose: 40 mg Ceftriaxone Sodium 2 gm/ (Sodium Chloride) 100 mls @ 100 mls/hr IVPB Q12 [facility] Last Admin: 10/18/16 11:06 Dose: 100 mls/hr Propofol (Diprivan) 1,000 mg in 100 mls @ 3.201 mls/hr IV .Q24H PRN; Protocol; 5 MCG/KG/MIN PRN Reason: TITRATE PER MD ORDER Last Admin: 10/16/16 06:30 Dose: 12 mcg/kg/min, 7.683 mls/hr Sodium Chloride (Hypertonic Saline 3%) 500 mls @ 50 mls/hr IV .Q10H [facility] Stop: 10/18/16 20:14 Last Admin: 10/18/16 11:07 Dose: 50 mls/hr Insulin Aspart (Novolog) 0 unit SC Q6 [facility] PRN Reason: Protocol Last Admin: 10/18/16 12:29 Dose: 4 unit Insulin Detemir (Levemir) 40 unit SC Q12 [facility] Last Admin: 10/18/16 11:14 Dose: 40 unit Lactulose (Enulose) 20 gm NG BID [facility] Last Admin: 10/18/16 11:04 Dose: 20 gm Lorazepam (Ativan) 2 mg IVP Q6H PRN PRN Reason: Anxiety Last Admin: 10/10/16 05:30 Dose: 2 mg Metoprolol Tartrate (Lopressor) 25 mg NG BID [facility] Last Admin: 10/18/16 11:05 Dose: 25 mg Pantoprazole Sodium (Protonix Susp) 40 mg PO DAILY [facility] Last Admin: 10/18/16 11:04 Dose: 40 mg - Labs Labs: 10/18/16 06:28 10/18/16 06:28 PT 16.5 SECONDS (9.7-12.2) H 10/09/16 12:53 INR 1.4 10/09/16 12:53 APTT 39 SECONDS (21-34) H 10/09/16 12:53 Assessment and Plan (1) Meningitis Status: Acute (2) Meningitis Status: Acute (3) Acute confusional state Status: Acute (4) Encephalopathy acute Status: Acute (5) Pneumonia Status: Acute (6) Sepsis Status: Acute
[2016-10-18 18:30] LABS: CHLORIDE 118 mmol/L (98-107); POTASSIUM 3.6 mmol/L (3.6-5.2); SODIUM 158 mmol/L (132-148)
[2016-10-18 18:33] LABS: BLOOD UREA NITROGEN 30 mg/dL (7-17); CARBON DIOXIDE 33 mmol/L (22-30); GFR AFRICAN-AMERICAN > 60; GLUCOSE,RANDOM 229 mg/dL (65-105)
[2016-10-18 18:34] LABS: CALCIUM 9.5 mg/dl (8.6-10.4)
[2016-10-18 22:59] LABS: CHLORIDE 118 mmol/L (98-107); POTASSIUM 3.6 mmol/L (3.6-5.2); SODIUM 157 mmol/L (132-148)
[2016-10-18 23:02] LABS: CARBON DIOXIDE 32 mmol/L (22-30); GFR AFRICAN-AMERICAN > 60
[2016-10-18 23:03] LABS: BLOOD UREA NITROGEN 31 mg/dL (7-17); CALCIUM 9.5 mg/dl (8.6-10.4); GLUCOSE,RANDOM 229 mg/dL (65-105)
[2016-10-19] MEDS: (Novolog) Insulin Aspart, Recombinant 100 u/ml 10 ml vial SC SCH ×4 (00:10→17:48)
[2016-10-19 05:44] LABS: ABG ALLEN TEST POS; ABG MECHANICAL RATE 12; ARTERIAL BLOOD HGB O2 SAT 92.9 % (95.0-98.0); ATERIAL BLOOD GAS PEEP 5; DRAW SITE LR; HHB 4.3 % (0.0-5.0); METHEMOGLOBIN 0.8 % (0.0-3.0)
[2016-10-19 07:01] LABS: BASO # 0.1 K/uL (0.0-0.2); BASO % 0.5 % (0.0-2.0); EOS # 0.3 K/uL (0.0-0.7); EOS % 2.2 % (0.0-4.0); HEMATOCRIT 39.7 % (34.0-47.0); LYMPH # 3.7 K/uL (1.0-4.3); LYMPH % 25.7 % (20.0-40.0); MEAN CELL VOLUME 90.2 fL (81.0-99.0); MEAN CORPUSCULAR HEMOGLOBIN 28.8 pg (27.0-31.0); MEAN PLATELET VOLUME 8.9 fL (7.2-11.7); MONO % 6.9 % (0.0-10.0); NRBC % 0.1 % (0.0-2.0); RED CELL DISTRIBUTION WIDTH 13.7 % (11.5-14.5); WHITE BLOOD COUNT 14.3 K/uL (4.8-10.8)
[2016-10-19 07:03] LABS: CHLORIDE 119 mmol/L (98-107)
[2016-10-19 07:04] LABS: POTASSIUM 3.7 mmol/L (3.6-5.2); SODIUM 158 mmol/L (132-148)
[2016-10-19 07:06] LABS: AST/SGOT 38 U/L (14-36); BILIRUBIN,TOTAL 0.7 mg/dL (0.2-1.3); CARBON DIOXIDE 32 mmol/L (22-30); GFR AFRICAN-AMERICAN > 60
[2016-10-19 07:07] LABS: ALB/GLOB RATIO 0.8 (1.0-2.1); ALKALINE PHOSPHATASE 108 U/L (38-126); ALT/SGPT 35 U/L (9-52); BLOOD UREA NITROGEN 35 mg/dL (7-17); CALCIUM 9.9 mg/dl (8.6-10.4); GLUCOSE,RANDOM 223 mg/dL (65-105); MAGNESIUM 2.5 mg/dL (1.6-2.3); PHOSPHOROUS 2.4 mg/dL (2.5-4.5); TOTAL PROTEIN 6.9 g/dL (6.3-8.3)
[2016-10-19] MEDS: Acetaminophen 650mg/20.3ml solution UD NG PRN (07:54)
--- NOTE | 2016-10-19 08:56 | CP.CCUPN ---
CCU Subjective - Physician Review Events Since Last Encounter (Free Text): 10/19/16 08:55 Cystoscopy in-year-old female admitted to the hospital after altered mental status, with history of hypertension diabetes. Patient was admitted with a pneumonia, and altered mental status complicated with the possible meningitis. Patient is currently being treated for Streptococcus pneumonia infection. Currently on ceftriaxone. Infectious disease on board. Patient is currently not responding. Not responding to deep stimuli, but the gag and cough reflex, and patient is overbreathing the ventilator. Spontaneous breathing noted. On examination: Vital signs reviewed in Chest good air entry bilaterally and no wheezing or rales noted regular heart sound abdomen obesity, but nontender Extremities edema noted TLC removed Patient has a peripheral line Santiago catheter present. NG tube feeding. Patient is on ventilator, unable to do the weaning at this time because of the altered mental status CCU Objective - Vital Signs / Intake & Output Vital Signs (Last 4 hours): Vital Signs Temp Pulse Resp BP Pulse Ox 10/19/16 08:05 100 H 17 113/62 91 L 10/19/16 08:00 102.0 F H 10/19/16 07:54 102 F H 10/19/16 07:05 96 H 16 126/61 92 L 10/19/16 07:00 96 H 22 92 L 10/19/16 06:05 96 H 17 123/61 91 L 10/19/16 06:00 96 H 19 91 L 10/19/16 05:05 90 18 115/58 L 92 L 10/19/16 05:00 91 H 17 124/56 L 92 L Intake and Output (Last 8hrs): Intake & Output 10/18/16 10/19/16 10/19/16 22:59 06:59 14:59 Intake Total 720 320 80 Output Total 625 270 70 Balance 95 50 10 Weight 193 lb Intake: Intake, IV Amount 400 0 0 Right Jug TLC Distal 50 Right Jug TLC Medial 200 Right PICC 150 0 0 Tube Feeding 320 320 80 Output: Urine 625 270 70 Urethral (Santiago) 625 270 70 - Physical Exam Head: Positive for: Atraumatic, Normocephalic Pupils: Positive for: Sluggish Mouth: Positive for: Moist Mucous Membranes Respiratory/Chest: Positive for: Rhonchi, Other (intubated) Cardiovascular: Positive for: Regular Rate and Rhythm, Normal S1, S2 Abdomen: Positive for: Normal Bowel Sounds. Negative for: Distention Upper Extremity: Positive for: NORMAL PULSES, Neurovascularly Intact Lower Extremity: Positive for: NORMAL PULSES, Neurovascularly Intact Neurological: Positive for: Other (unresponsive but is opening eyes now) Skin: Positive for: Warm, Dry - Medications Active Medications: Active Medications Generic Name Dose Route Start Last Admin Trade Name Freq PRN Reason Stop Dose Admin Acetaminophen 650 mg 10/09/16 00:41 10/19/16 07:54 Tylenol 650mg/20.3ml Solution Ud NG 650 mg Q6 PRN Administration FOR TEMP 101*F OR ABOVE Artificial Tears 1 gm 10/11/16 10:30 10/18/16 18:27 Lacri-Lube OU 1 gm BID [facility] Administration Enoxaparin Sodium 40 mg 10/09/16 17:30 10/18/16 11:05 Lovenox SC 40 mg DAILY [facility] Administration Ceftriaxone Sodium 2 gm/ 100 mls @ 100 mls/hr 10/10/16 22:00 10/18/16 23:00 Sodium Chloride IVPB 100 mls/hr Q12 [facility] Administration Insulin Aspart 0 unit 10/17/16 12:00 10/19/16 06:25 Novolog SC 2 unit Q6 [facility]I Administration Protocol Insulin Detemir 40 unit 10/18/16 10:08 10/18/16 23:00 Levemir SC 40 unit Q12 [facility] Administration Lactulose 20 gm 10/12/16 18:00 10/18/16 18:27 Enulose NG 20 gm BID [facility] Administration Metoprolol Tartrate 25 mg 10/12/16 18:00 10/18/16 18:27 Lopressor NG 25 mg BID [facility] Administration Pantoprazole Sodium 40 mg 10/12/16 10:00 10/18/16 11:04 Protonix Susp PO 40 mg DAILY [facility] Administration - Patient Studies Lab Studies: Lab Studies 10/19/16 10/19/16 10/19/16 Range/Units 06:30 06:30 06:04 WBC 14.3 H (4.8-10.8) K/uL RBC 4.40 (3.80-5.20) Mil/uL Hgb 12.7 (11.0-16.0) g/dL Hct 39.7 (34.0-47.0) % MCV 90.2 (81.0-99.0) fL MCH 28.8 (27.0-31.0) pg MCHC 32.0 L (33.0-37.0) g/dL RDW 13.7 (11.5-14.5) % Plt Count 344 (130-400) K/uL MPV 8.9 (7.2-11.7) fL Neut % (Auto) 64.7 (50.0-75.0) % Lymph % (Auto) 25.7 (20.0-40.0) % Drew % (Auto) 6.9 (0.0-10.0) % Eos % (Auto) 2.2 (0.0-4.0) % Baso % (Auto) 0.5 (0.0-2.0) % Neut # 9.2 H (1.8-7.0) K/uL Lymph # 3.7 (1.0-4.3) K/uL Drew # 1.0 H (0.0-0.8) K/uL Eos # 0.3 (0.0-0.7) K/uL Baso # 0.1 (0.0-0.2) K/uL Puncture Site pCO2 (35-45) mm/Hg pO2 (80-100) mm/Hg HCO3 (21-28) mmol/L ABG pH (7.35-7.45) ABG Total CO2 (22-28) mmol/L ABG O2 Saturation (95-98) % ABG Base Excess (-2.0-3.0) mmol/L ABG Hemoglobin (11.7-17.4) g/dL ABG Carboxyhemoglobin (0.5-1.5) % POC ABG HHb (Measured) (0.0-5.0) % ABG Methemoglobin (0.0-3.0) % Nico Test A-a O2 Difference mm/Hg Respiratory Index Hgb O2 Saturation (95.0-98.0) % Mechanical Rate FiO2 % Tidal Volume PEEP Sodium 158 H (132-148) mmol/L Potassium 3.7 (3.6-5.2) mmol/L Chloride 119 H (98-107) mmol/L Carbon Dioxide 32 H (22-30) mmol/L Anion Gap 11 (10-20) BUN 35 H (7-17) mg/dL Creatinine 0.7 (0.7-1.2) MG/DL Est GFR ( Amer) > 60 Est GFR (Non-Af Amer) > 60 POC Glucose (mg/dL) 179 H (65-110) mg/dL Random Glucose 223 H (65-105) mg/dL Calcium 9.9 (8.6-10.4) mg/dl Phosphorus 2.4 L (2.5-4.5) mg/dL Magnesium 2.5 H (1.6-2.3) mg/dL Total Bilirubin 0.7 (0.2-1.3) mg/dL AST 38 H (14-36) U/L ALT 35 (9-52) U/L Alkaline Phosphatase 108 (38-126) U/L Total Protein 6.9 (6.3-8.3) g/dL Albumin 3.1 L (3.5-5.0) g/dL Globulin 3.8 (2.2-3.9) gm/dL Albumin/Globulin Ratio 0.8 L (1.0-2.1) 10/19/16 10/18/16 10/18/16 Range/Units 05:39 23:55 22:46 WBC (4.8-10.8) K/uL RBC (3.80-5.20) Mil/uL Hgb (11.0-16.0) g/dL Hct (34.0-47.0) % MCV (81.0-99.0) fL MCH (27.0-31.0) pg MCHC (33.0-37.0) g/dL RDW (11.5-14.5) % Plt Count (130-400) K/uL MPV (7.2-11.7) fL Neut % (Auto) (50.0-75.0) % Lymph % (Auto) (20.0-40.0) % Drew % (Auto) (0.0-10.0) % Eos % (Auto) (0.0-4.0) % Baso % (Auto) (0.0-2.0) % Neut # (1.8-7.0) K/uL Lymph # (1.0-4.3) K/uL Drew # (0.0-0.8) K/uL Eos # (0.0-0.7) K/uL Baso # (0.0-0.2) K/uL Puncture Site Lr pCO2 43 (35-45) mm/Hg pO2 62 L (80-100) mm/Hg HCO3 32.1 H (21-28) mmol/L ABG pH 7.50 H (7.35-7.45) ABG Total CO2 34.8 H (22-28) mmol/L ABG O2 Saturation 95.6 (95-98) % ABG Base Excess 9.3 H (-2.0-3.0) mmol/L ABG Hemoglobin 13.0 (11.7-17.4) g/dL ABG Carboxyhemoglobin 2.0 H (0.5-1.5) % POC ABG HHb (Measured) 4.3 (0.0-5.0) % ABG Methemoglobin 0.8 (0.0-3.0) % Nico Test Pos A-a O2 Difference 98.0 mm/Hg Respiratory Index 1.6 Hgb O2 Saturation 92.9 L (95.0-98.0) % Mechanical Rate 12 FiO2 30.0 % Tidal Volume 500 PEEP 5 Sodium 157 H (132-148) mmol/L Potassium 3.6 (3.6-5.2) mmol/L Chloride 118 H (98-107) mmol/L Carbon Dioxide 32 H (22-30) mmol/L Anion Gap 11 (10-20) BUN 31 H (7-17) mg/dL Creatinine 0.6 L (0.7-1.2) MG/DL Est GFR ( Amer) > 60 Est GFR (Non-Af Amer) > 60 POC Glucose (mg/dL) 235 H (65-110) mg/dL Random Glucose 229 H (65-105) mg/dL Calcium 9.5 (8.6-10.4) mg/dl Phosphorus (2.5-4.5) mg/dL Magnesium (1.6-2.3) mg/dL Total Bilirubin (0.2-1.3) mg/dL AST (14-36) U/L ALT (9-52) U/L Alkaline Phosphatase (38-126) U/L Total Protein (6.3-8.3) g/dL Albumin (3.5-5.0) g/dL Globulin (2.2-3.9) gm/dL Albumin/Globulin Ratio (1.0-2.1) 10/18/16 10/18/16 10/18/16 Range/Units 18:13 17:52 12:17 WBC (4.8-10.8) K/uL RBC (3.80-5.20) Mil/uL Hgb (11.0-16.0) g/dL Hct (34.0-47.0) % MCV (81.0-99.0) fL MCH (27.0-31.0) pg MCHC (33.0-37.0) g/dL RDW (11.5-14.5) % Plt Count (130-400) K/uL MPV (7.2-11.7) fL Neut % (Auto) (50.0-75.0) % Lymph % (Auto) (20.0-40.0) % Drew % (Auto) (0.0-10.0) % Eos % (Auto) (0.0-4.0) % Baso % (Auto) (0.0-2.0) % Neut # (1.8-7.0) K/uL Lymph # (1.0-4.3) K/uL Drew # (0.0-0.8) K/uL Eos # (0.0-0.7) K/uL Baso # (0.0-0.2) K/uL Puncture Site pCO2 (35-45) mm/Hg pO2 (80-100) mm/Hg HCO3 (21-28) mmol/L ABG pH (7.35-7.45) ABG Total CO2 (22-28) mmol/L ABG O2 Saturation (95-98) % ABG Base Excess (-2.0-3.0) mmol/L ABG Hemoglobin (11.7-17.4) g/dL ABG Carboxyhemoglobin (0.5-1.5) % POC ABG HHb (Measured) (0.0-5.0) % ABG Methemoglobin (0.0-3.0) % Nico Test A-a O2 Difference mm/Hg Respiratory Index Hgb O2 Saturation (95.0-98.0) % Mechanical Rate FiO2 % Tidal Volume PEEP Sodium 158 H (132-148) mmol/L Potassium 3.6 (3.6-5.2) mmol/L Chloride 118 H (98-107) mmol/L Carbon Dioxide 33 H (22-30) mmol/L Anion Gap 11 (10-20) BUN 30 H (7-17) mg/dL Creatinine 0.6 L (0.7-1.2) MG/DL Est GFR ( Amer) > 60 Est GFR (Non-Af Amer) > 60 POC Glucose (mg/dL) 208 H 237 H (65-110) mg/dL Random Glucose 229 H (65-105) mg/dL Calcium 9.5 (8.6-10.4) mg/dl Phosphorus (2.5-4.5) mg/dL Magnesium (1.6-2.3) mg/dL Total Bilirubin (0.2-1.3) mg/dL AST (14-36) U/L ALT (9-52) U/L Alkaline Phosphatase (38-126) U/L Total Protein (6.3-8.3) g/dL Albumin (3.5-5.0) g/dL Globulin (2.2-3.9) gm/dL Albumin/Globulin Ratio (1.0-2.1) Laboratory Results - last 24 hr 10/18/16 10/18/16 10/18/16 12:17 17:52 18:13 WBC RBC Hgb Hct MCV MCH MCHC RDW Plt Count MPV Neut % (Auto) Lymph % (Auto) Drew % (Auto) Eos % (Auto) Baso % (Auto) Neut # Lymph # Drew # Eos # Baso # Puncture Site pCO2 pO2 HCO3 ABG pH ABG Total CO2 ABG O2 Saturation ABG Base Excess ABG Hemoglobin ABG Carboxyhemoglobin POC ABG HHb (Measured) ABG Methemoglobin Nico Test A-a O2 Difference Respiratory Index Hgb O2 Saturation Mechanical Rate FiO2 Tidal Volume PEEP Sodium 158 H Potassium 3.6 Chloride 118 H Carbon Dioxide 33 H Anion Gap 11 BUN 30 H Creatinine 0.6 L Est GFR ( Amer) > 60 Est GFR (Non-Af Amer) > 60 POC Glucose (mg/dL) 237 H 208 H Random Glucose 229 H Calcium 9.5 Phosphorus Magnesium Total Bilirubin AST ALT Alkaline Phosphatase Total Protein Albumin Globulin Albumin/Globulin Ratio 10/18/16 10/18/16 10/19/16 22:46 23:55 05:39 WBC RBC Hgb Hct MCV MCH MCHC RDW Plt Count MPV Neut % (Auto) Lymph % (Auto) Drew % (Auto) Eos % (Auto) Baso % (Auto) Neut # Lymph # Drew # Eos # Baso # Puncture Site Lr pCO2 43 pO2 62 L HCO3 32.1 H ABG pH 7.50 H ABG Total CO2 34.8 H ABG O2 Saturation 95.6 ABG Base Excess 9.3 H ABG Hemoglobin 13.0 ABG Carboxyhemoglobin 2.0 H POC ABG HHb (Measured) 4.3 ABG Methemoglobin 0.8 Nico Test Pos A-a O2 Difference 98.0 Respiratory Index 1.6 Hgb O2 Saturation 92.9 L Mechanical Rate 12 FiO2 30.0 Tidal Volume 500 PEEP 5 Sodium 157 H Potassium 3.6 Chloride 118 H Carbon Dioxide 32 H Anion Gap 11 BUN 31 H Creatinine 0.6 L Est GFR ( Amer) > 60 Est GFR (Non-Af Amer) > 60 POC Glucose (mg/dL) 235 H Random Glucose 229 H Calcium 9.5 Phosphorus Magnesium Total Bilirubin AST ALT Alkaline Phosphatase Total Protein Albumin Globulin Albumin/Globulin Ratio 10/19/16 10/19/16 10/19/16 06:04 06:30 06:30 WBC 14.3 H RBC 4.40 Hgb 12.7 Hct 39.7 MCV 90.2 MCH 28.8 MCHC 32.0 L RDW 13.7 Plt Count 344 MPV 8.9 Neut % (Auto) 64.7 Lymph % (Auto) 25.7 Drew % (Auto) 6.9 Eos % (Auto) 2.2 Baso % (Auto) 0.5 Neut # 9.2 H Lymph # 3.7 Drew # 1.0 H Eos # 0.3 Baso # 0.1 Puncture Site pCO2 pO2 HCO3 ABG pH ABG Total CO2 ABG O2 Saturation ABG Base Excess ABG Hemoglobin ABG Carboxyhemoglobin POC ABG HHb (Measured) ABG Methemoglobin Nico Test A-a O2 Difference Respiratory Index Hgb O2 Saturation Mechanical Rate FiO2 Tidal Volume PEEP Sodium 158 H Potassium 3.7 Chloride 119 H Carbon Dioxide 32 H Anion Gap 11 BUN 35 H Creatinine 0.7 Est GFR ( Amer) > 60 Est GFR (Non-Af Amer) > 60 POC Glucose (mg/dL) 179 H Random Glucose 223 H Calcium 9.9 Phosphorus 2.4 L Magnesium 2.5 H Total Bilirubin 0.7 AST 38 H ALT 35 Alkaline Phosphatase 108 Total Protein 6.9 Albumin 3.1 L Globulin 3.8 Albumin/Globulin Ratio 0.8 L Fingerstick Blood Sugar Results: 235 Assessment/Plan (1) Acute respiratory failure Assessment and plan: 61-year-old female with history of diabetes hypertension hypercholesterolemia admitted to the hospital with acute pneumonia. Complicated with acute respiratory failure. Altered mental status. Most likely bacterial meningitis. Patient is currently on antibiotic. Overall prognosis is very poor. CAT scan of the head showing evidence of ischemic changes. We'll speak to the patient's family, for possible tracheostomy and feeding tube. Patient is not a candidate for extubation at this time. DVT and GI prophylaxis, supportive care. We'll follow the patient Current Visit: Yes Status: Acute (2) Bacterial meningoencephalitis Current Visit: Yes Status: Acute (3) Pneumonia Current Visit: Yes Status: Acute
[2016-10-19] MEDS: White Petrolatum/Mineral Oil Ophth Oint(3.5 gm) OU SCH ×2 (09:13→17:49)
[2016-10-19] MEDS: Insulin Detemir 100 units/ml Vial (Levemir) SC SCH ×2 (09:13→22:36)
[2016-10-19] MEDS: Enoxaparin 40 mg Syringe SC SCH (09:14)
[2016-10-19] MEDS: Pantoprazole 40 mg Susp UD PO SCH (09:14)
[2016-10-19] MEDS: cefTRIAXone 2 GM in Sodium Chloride 0.9% 100 ML IVPB SCH ×2 (09:21→22:37)
[2016-10-19] MEDS: Vancomycin 1 gm/NS 200 ml 1 GM/200 ML BAG IVPB SCH (18:24)
--- NOTE | 2016-10-19 19:37 | RAD ---
HISTORY: intubated COMPARISON: No prior. FINDINGS: LUNGS: In situ ETT, tip of which lies approximately 6 cm above pia. NGT is also present, the tip of which has not been included on this film though distal aspect does lie below EG junction. Right sided PICC line with tip in the SVC Left lower lobe atelectasis and or infiltrate. PLEURA: No significant pleural effusion identified, no pneumothorax apparent. CARDIOVASCULAR: Normal. OSSEOUS STRUCTURES: No significant abnormalities. VISUALIZED UPPER ABDOMEN: Normal. OTHER FINDINGS: None. IMPRESSION: ETT, NGT and right-sided PICC line as above. Patchy left lower lobe atelectasis and or infiltrate.
[2016-10-20] MEDS: (Novolog) Insulin Aspart, Recombinant 100 u/ml 10 ml vial SC SCH ×4 (01:49→17:54)
[2016-10-20 05:32] LABS: ABG ALLEN TEST POS; ABG MECHANICAL RATE 12; ARTERIAL BLOOD HGB O2 SAT 95.1 % (95.0-98.0); ATERIAL BLOOD GAS PEEP 5; CARBOXYHEMOGLOBIN 2.1 % (0.5-1.5); DRAW SITE L RAD; HHB 2.1 % (0.0-5.0); METHEMOGLOBIN 0.7 % (0.0-3.0)
[2016-10-20 05:58] LABS: BASO # 0.1 K/uL (0.0-0.2); EOS # 0.4 K/uL (0.0-0.7); EOS % 2.8 % (0.0-4.0); HEMATOCRIT 39.4 % (34.0-47.0); LYMPH # 3.1 K/uL (1.0-4.3); LYMPH % 21.6 % (20.0-40.0); MEAN CELL VOLUME 90.8 fL (81.0-99.0); MEAN CORPUSCULAR HEMOGLOBIN 28.7 pg (27.0-31.0); MEAN CORPUSCULAR HGB CONC 31.6 g/dL (33.0-37.0); MEAN PLATELET VOLUME 8.6 fL (7.2-11.7); MONO # 0.9 K/uL (0.0-0.8); MONO % 6.1 % (0.0-10.0); RED CELL DISTRIBUTION WIDTH 13.7 % (11.5-14.5); WHITE BLOOD COUNT 14.5 K/uL (4.8-10.8)
[2016-10-20 06:24] LABS: CHLORIDE 117 mmol/L (98-107); SODIUM 156 mmol/L (132-148)
[2016-10-20 06:26] LABS: AST/SGOT 70 U/L (14-36); BILIRUBIN,TOTAL 0.8 mg/dL (0.2-1.3); CARBON DIOXIDE 32 mmol/L (22-30); GFR AFRICAN-AMERICAN > 60
[2016-10-20 06:27] LABS: ALB/GLOB RATIO 0.8 (1.0-2.1); ALKALINE PHOSPHATASE 124 U/L (38-126); ALT/SGPT 54 U/L (9-52); BLOOD UREA NITROGEN 34 mg/dL (7-17); CALCIUM 9.7 mg/dl (8.6-10.4); GLUCOSE,RANDOM 243 mg/dL (65-105); MAGNESIUM 2.4 mg/dL (1.6-2.3); PHOSPHOROUS 2.5 mg/dL (2.5-4.5)
[2016-10-20] MEDS: Vancomycin 1 gm/NS 200 ml 1 GM/200 ML BAG IVPB SCH ×2 (06:48→17:50)
[2016-10-20] MEDS: Pantoprazole 40 mg Susp UD PO SCH (10:13)
[2016-10-20] MEDS: Insulin Detemir 100 units/ml Vial (Levemir) SC SCH ×2 (10:13→21:53)
[2016-10-20] MEDS: Enoxaparin 40 mg Syringe SC SCH (10:13)
[2016-10-20] MEDS: cefTRIAXone 2 GM in Sodium Chloride 0.9% 100 ML IVPB SCH ×2 (10:14→21:54)
[2016-10-20] MEDS: White Petrolatum/Mineral Oil Ophth Oint(3.5 gm) OU SCH ×2 (10:26→17:50)
--- NOTE | 2016-10-20 15:15 | CP.PCM.PN ---
Subjective - Date & Time of Evaluation Date of Evaluation: 10/20/16 Time of Evaluation: 08:00 - Subjective Subjective: Patient was admitted with a pneumonia, and altered mental status complicated with the possible meningitis. Patient is currently being treated for Streptococcus pneumonia infection. Currently on ceftriaxone. remains unresponsive- recc : neuro follow up and repeat imaging to r/o abscess poor prognosis Objective - Vital Signs/Intake and Output Vital Signs (last 24 hours): Temp Pulse Resp BP Pulse Ox 98.8 F 78 18 119/58 L 94 L 10/20/16 12:00 10/20/16 14:05 10/20/16 14:05 10/20/16 14:05 10/20/16 14:05 Intake and Output: 10/20/16 10/20/16 06:59 18:59 Intake Total 580 960 Output Total 600 310 Balance -20 650 - Medications Medications: Current Medications Acetaminophen (Tylenol 650mg/20.3ml Solution Ud) 650 mg NG Q6 PRN PRN Reason: FOR TEMP 101*F OR ABOVE Last Admin: 10/19/16 07:54 Dose: 650 mg Artificial Tears (Lacri-Lube) 1 gm OU BID [facility] Last Admin: 10/20/16 10:26 Dose: 1 gm Enoxaparin Sodium (Lovenox) 40 mg SC DAILY [facility] Last Admin: 10/20/16 10:13 Dose: 40 mg Ceftriaxone Sodium 2 gm/ (Sodium Chloride) 100 mls @ 100 mls/hr IVPB Q12 [facility] Last Admin: 10/20/16 10:14 Dose: 100 mls/hr Vancomycin/Sodium Chloride (Vancocin) 1 gm in 200 mls @ 133.333 mls/hr IVPB Q12H [facility] Stop: 10/24/16 18:31 Last Admin: 10/20/16 06:48 Dose: 133.333 mls/hr Insulin Aspart (Novolog) 0 unit SC Q6 [facility] PRN Reason: Protocol Last Admin: 10/20/16 12:15 Dose: 2 unit Insulin Detemir (Levemir) 40 unit SC Q12 [facility] Last Admin: 10/20/16 10:13 Dose: 40 unit Lactulose (Enulose) 20 gm NG BID [facility] Last Admin: 10/20/16 10:13 Dose: 20 gm Metoprolol Tartrate (Lopressor) 25 mg NG BID [facility] Last Admin: 10/20/16 10:13 Dose: 25 mg Pantoprazole Sodium (Protonix Susp) 40 mg PO DAILY [facility]I Last Admin: 10/20/16 10:13 Dose: 40 mg - Labs Labs: 10/20/16 05:49 10/20/16 05:49 PT 16.5 SECONDS (9.7-12.2) H 10/09/16 12:53 INR 1.4 10/09/16 12:53 APTT 39 SECONDS (21-34) H 10/09/16 12:53 - Constitutional Appears: Chronically Ill - Eye Exam Eye Exam: absent: Scleral icterus - ENT Exam ENT Exam: Mucous Membranes Dry - Neck Exam Neck Exam: absent: Lymphadenopathy - Respiratory Exam Respiratory Exam: Decreased Breath Sounds, Rhonchi - Cardiovascular Exam Cardiovascular Exam: REGULAR RHYTHM, +S1, +S2 - GI/Abdominal Exam GI & Abdominal Exam: Distended, Soft. absent: Tenderness - Rectal Exam Rectal Exam: Deferred - Exam Exam: absent: NORMAL INSPECTION - Extremities Exam Extremities Exam: Pedal Edema. absent: Calf Tenderness, Tenderness - Back Exam Back Exam: absent: CVA tenderness (L), CVA tenderness (R) - Neurological Exam Neurological Exam: Altered Assessment and Plan (1) Meningitis Status: Acute (2) Meningitis Status: Acute (3) Acute confusional state Status: Acute (4) Encephalopathy acute Status: Acute (5) Pneumonia Status: Acute (6) Sepsis Status: Acute - Assessment and Plan (Free Text) Assessment: add ernao recc: neuro re-eval consider repeat imaging
--- NOTE | 2016-10-20 18:06 | RAD ---
HISTORY: Intubated COMPARISON: No prior. FINDINGS: LUNGS: In situ ETT, tip of which lies approximately 5.65 cm above pia. NGT is present, the tip of which has not been included on this film though distal aspect does lie below EG junction. Right-sided PICC line with tip in the SVC. Bibasilar atelectatic changes are felt to be present. PLEURA: No significant pleural effusion identified, no pneumothorax apparent. CARDIOVASCULAR: Heart size unchanged OSSEOUS STRUCTURES: No significant abnormalities. VISUALIZED UPPER ABDOMEN: Normal. OTHER FINDINGS: None. IMPRESSION: Support lines and tubes as above. Bibasilar atelectasis.
--- NOTE | 2016-10-20 22:28 | CP.CCUPN ---
CCU Subjective - Physician Review Events Since Last Encounter (Free Text): 10/20/16 22:26 61-year-old female admitted to the hospital after altered mental status, with history of hypertension diabetes. Patient was admitted with a pneumonia, and altered mental status complicated with the possible meningitis. Patient is currently being treated for Streptococcus pneumonia infection. Currently on ceftriaxone. Infectious disease on board. Patient is currently not responding. Not responding to deep stimuli, but the gag and cough reflex, and patient is overbreathing the ventilator. Spontaneous breathing noted. On examination: Vital signs reviewed in Chest good air entry bilaterally and no wheezing or rales noted regular heart sound abdomen obesity, but nontender Extremities edema noted Patient's overall condition is unchanging. Still not responding well. Patient is having gag and cough reflex. Patient is breathing over the ventilator. But poorly responsive noted. comatosed CCU Objective - Vital Signs / Intake & Output Vital Signs (Last 4 hours): Vital Signs Temp Pulse Resp BP Pulse Ox 10/20/16 21:06 78 18 105/49 L 94 L 10/20/16 21:00 78 20 94 L 10/20/16 20:05 82 16 122/59 L 95 10/20/16 20:00 99.7 F H 82 20 122/59 L 95 10/20/16 19:05 74 15 127/72 95 10/20/16 19:00 72 14 95 Intake and Output (Last 8hrs): Intake & Output 10/20/16 10/20/16 10/20/16 06:59 14:59 22:59 Intake Total 420 920 820 Output Total 400 280 270 Balance 20 640 550 Weight 233 lb 8 oz Intake: Intake, IV Amount 100 300 300 Right PICC 100 300 300 Tube Feeding 320 320 320 Other 300 200 Output: Urine 400 280 270 Urethral ([place]) 400 280 270 Vital signs reviewed No neck vein distention noted Chest good air entry bilaterally, no wheezing or rales noted CVS regular heart sound, no murmur noted not responding. Spontaneous opening eyes - Physical Exam Head: Positive for: Atraumatic, Normocephalic Pupils: Positive for: Sluggish Mouth: Positive for: Moist Mucous Membranes Respiratory/Chest: Positive for: Rhonchi, Other (intubated) Cardiovascular: Positive for: Regular Rate and Rhythm, Normal S1, S2 Abdomen: Positive for: Normal Bowel Sounds. Negative for: Distention Upper Extremity: Positive for: NORMAL PULSES, Neurovascularly Intact Lower Extremity: Positive for: NORMAL PULSES, Neurovascularly Intact Neurological: Positive for: Other (unresponsive but is opening eyes now) Skin: Positive for: Warm, Dry - Medications Active Medications: Active Medications Generic Name Dose Route Start Last Admin Trade Name Freq PRN Reason Stop Dose Admin Acetaminophen 650 mg 10/09/16 00:41 10/19/16 07:54 Tylenol 650mg/20.3ml Solution Ud NG 650 mg Q6 PRN Administration FOR TEMP 101*F OR ABOVE Artificial Tears 1 gm 10/11/16 10:30 10/20/16 17:50 Lacri-Lube OU 1 gm BID MINI Administration Enoxaparin Sodium 40 mg 10/09/16 17:30 10/20/16 10:13 Lovenox SC 40 mg DAILY MINI Administration Ceftriaxone Sodium 2 gm/ 100 mls @ 100 mls/hr 10/10/16 22:00 10/20/16 21:54 Sodium Chloride IVPB 100 mls/hr Q12 MINI Administration Vancomycin/Sodium Chloride 1 gm in 200 mls @ 133.333 mls/hr 10/19/16 18:30 17:50 Vancocin IVPB 10/24/16 18:31 133.333 mls/hr Q12H MINI Administration Insulin Aspart 0 unit 10/17/16 12:00 10/20/16 17:54 Novolog SC 2 unit Q6 MINI Administration Protocol Insulin Detemir 40 unit 10/18/16 10:08 10/20/16 21:53 Levemir SC 40 unit Q12 MINI Administration Lactulose 20 gm 10/12/16 18:00 10/20/16 17:49 Enulose NG 20 gm BID MINI Administration Metoprolol Tartrate 25 mg 10/12/16 18:00 10/20/16 17:49 Lopressor NG 25 mg BID MINI Administration Pantoprazole Sodium 40 mg 10/12/16 10:00 10/20/16 10:13 Protonix Susp PO 40 mg DAILY MINI Administration - Patient Studies Lab Studies: Microbiology Studies 10/19/16 17:30 Blood Culture - Preliminary Blood-Thru Central Line NO GROWTH AFTER 24 HOURS 10/19/16 17:30 Blood Culture - Preliminary Blood-Thru Central Line NO GROWTH AFTER 24 HOURS 10/19/16 17:30 Urine Culture - Final Urine,[place] No Growth (<1,000 CFU/ML) 10/19/16 Unknown Gram Stain - Final Trachasp Lab Studies 10/20/16 10/20/16 10/20/16 Range/Units 17:51 11:32 07:01 WBC (4.8-10.8) K/uL RBC (3.80-5.20) Mil/uL Hgb (11.0-16.0) g/dL Hct (34.0-47.0) % MCV (81.0-99.0) fL MCH (27.0-31.0) pg MCHC (33.0-37.0) g/dL RDW (11.5-14.5) % Plt Count (130-400) K/uL MPV (7.2-11.7) fL Neut % (Auto) (50.0-75.0) % Lymph % (Auto) (20.0-40.0) % [place] % (Auto) (0.0-10.0) % Eos % (Auto) (0.0-4.0) % Baso % (Auto) (0.0-2.0) % Neut # (1.8-7.0) K/uL Lymph # (1.0-4.3) K/uL [place] # (0.0-0.8) K/uL Eos # (0.0-0.7) K/uL Baso # (0.0-0.2) K/uL Puncture Site pCO2 (35-45) mm/Hg pO2 (80-100) mm/Hg HCO3 (21-28) mmol/L ABG pH (7.35-7.45) ABG Total CO2 (22-28) mmol/L ABG O2 Saturation (95-98) % ABG Base Excess (-2.0-3.0) mmol/L ABG Hemoglobin (11.7-17.4) g/dL ABG Carboxyhemoglobin (0.5-1.5) % POC ABG HHb (Measured) (0.0-5.0) % ABG Methemoglobin (0.0-3.0) % Nico Test A-a O2 Difference mm/Hg Respiratory Index Hgb O2 Saturation (95.0-98.0) % Mechanical Rate FiO2 % Tidal Volume PEEP Sodium (132-148) mmol/L Potassium (3.6-5.2) mmol/L Chloride (98-107) mmol/L Carbon Dioxide (22-30) mmol/L Anion Gap (10-20) BUN (7-17) mg/dL Creatinine (0.7-1.2) MG/DL Est GFR ( Amer) Est GFR (Non-Af Amer) POC Glucose (mg/dL) 175 H 197 H 233 H (65-110) mg/dL Random Glucose (65-105) mg/dL Calcium (8.6-10.4) mg/dl Phosphorus (2.5-4.5) mg/dL Magnesium (1.6-2.3) mg/dL Total Bilirubin (0.2-1.3) mg/dL AST (14-36) U/L ALT (9-52) U/L Alkaline Phosphatase (38-126) U/L Total Protein (6.3-8.3) g/dL Albumin (3.5-5.0) g/dL Globulin (2.2-3.9) gm/dL Albumin/Globulin Ratio (1.0-2.1) 10/20/16 10/20/16 10/20/16 Range/Units 05:49 05:49 05:23 WBC 14.5 H (4.8-10.8) K/uL RBC 4.34 (3.80-5.20) Mil/uL Hgb 12.5 (11.0-16.0) g/dL Hct 39.4 (34.0-47.0) % MCV 90.8 (81.0-99.0) fL MCH 28.7 (27.0-31.0) pg MCHC 31.6 L (33.0-37.0) g/dL RDW 13.7 (11.5-14.5) % Plt Count 319 (130-400) K/uL MPV 8.6 (7.2-11.7) fL Neut % (Auto) 68.5 (50.0-75.0) % Lymph % (Auto) 21.6 (20.0-40.0) % [place] % (Auto) 6.1 (0.0-10.0) % Eos % (Auto) 2.8 (0.0-4.0) % Baso % (Auto) 1.0 (0.0-2.0) % Neut # 9.9 H (1.8-7.0) K/uL Lymph # 3.1 (1.0-4.3) K/uL [place] # 0.9 H (0.0-0.8) K/uL Eos # 0.4 (0.0-0.7) K/uL Baso # 0.1 (0.0-0.2) K/uL Puncture Site L rad pCO2 45 (35-45) mm/Hg pO2 78 L (80-100) mm/Hg HCO3 33.1 H (21-28) mmol/L ABG pH 7.50 H (7.35-7.45) ABG Total CO2 36.5 H (22-28) mmol/L ABG O2 Saturation 97.8 (95-98) % ABG Base Excess 10.6 H (-2.0-3.0) mmol/L ABG Hemoglobin 12.9 (11.7-17.4) g/dL ABG Carboxyhemoglobin 2.1 H (0.5-1.5) % POC ABG HHb (Measured) 2.1 (0.0-5.0) % ABG Methemoglobin 0.7 (0.0-3.0) % Nico Test Pos A-a O2 Difference 80.0 mm/Hg Respiratory Index 1.0 Hgb O2 Saturation 95.1 (95.0-98.0) % Mechanical Rate 12 FiO2 30.0 % Tidal Volume 500 PEEP 5 Sodium 156 H (132-148) mmol/L Potassium 4.0 (3.6-5.2) mmol/L Chloride 117 H (98-107) mmol/L Carbon Dioxide 32 H (22-30) mmol/L Anion Gap 11 (10-20) BUN 34 H (7-17) mg/dL Creatinine 0.6 L (0.7-1.2) MG/DL Est GFR ( Amer) > 60 Est GFR (Non-Af Amer) > 60 POC Glucose (mg/dL) (65-110) mg/dL Random Glucose 243 H (65-105) mg/dL Calcium 9.7 (8.6-10.4) mg/dl Phosphorus 2.5 (2.5-4.5) mg/dL Magnesium 2.4 H (1.6-2.3) mg/dL Total Bilirubin 0.8 (0.2-1.3) mg/dL AST 70 H D (14-36) U/L ALT 54 H D (9-52) U/L Alkaline Phosphatase 124 (38-126) U/L Total Protein 7.0 (6.3-8.3) g/dL Albumin 3.1 L (3.5-5.0) g/dL Globulin 3.9 (2.2-3.9) gm/dL Albumin/Globulin Ratio 0.8 L (1.0-2.1) 10/20/16 Range/Units 00:08 WBC (4.8-10.8) K/uL RBC (3.80-5.20) Mil/uL Hgb (11.0-16.0) g/dL Hct (34.0-47.0) % MCV (81.0-99.0) fL MCH (27.0-31.0) pg MCHC (33.0-37.0) g/dL RDW (11.5-14.5) % Plt Count (130-400) K/uL MPV (7.2-11.7) fL Neut % (Auto) (50.0-75.0) % Lymph % (Auto) (20.0-40.0) % [place] % (Auto) (0.0-10.0) % Eos % (Auto) (0.0-4.0) % Baso % (Auto) (0.0-2.0) % Neut # (1.8-7.0) K/uL Lymph # (1.0-4.3) K/uL [place] # (0.0-0.8) K/uL Eos # (0.0-0.7) K/uL Baso # (0.0-0.2) K/uL Puncture Site pCO2 (35-45) mm/Hg pO2 (80-100) mm/Hg HCO3 (21-28) mmol/L ABG pH (7.35-7.45) ABG Total CO2 (22-28) mmol/L ABG O2 Saturation (95-98) % ABG Base Excess (-2.0-3.0) mmol/L ABG Hemoglobin (11.7-17.4) g/dL ABG Carboxyhemoglobin (0.5-1.5) % POC ABG HHb (Measured) (0.0-5.0) % ABG Methemoglobin (0.0-3.0) % Nico Test A-a O2 Difference mm/Hg Respiratory Index Hgb O2 Saturation (95.0-98.0) % Mechanical Rate FiO2 % Tidal Volume PEEP Sodium (132-148) mmol/L Potassium (3.6-5.2) mmol/L Chloride (98-107) mmol/L Carbon Dioxide (22-30) mmol/L Anion Gap (10-20) BUN (7-17) mg/dL Creatinine (0.7-1.2) MG/DL Est GFR ( Amer) Est GFR (Non-Af Amer) POC Glucose (mg/dL) 259 H (65-110) mg/dL Random Glucose (65-105) mg/dL Calcium (8.6-10.4) mg/dl Phosphorus (2.5-4.5) mg/dL Magnesium (1.6-2.3) mg/dL Total Bilirubin (0.2-1.3) mg/dL AST (14-36) U/L ALT (9-52) U/L Alkaline Phosphatase (38-126) U/L Total Protein (6.3-8.3) g/dL Albumin (3.5-5.0) g/dL Globulin (2.2-3.9) gm/dL Albumin/Globulin Ratio (1.0-2.1) Laboratory Results - last 24 hr 10/20/16 10/20/16 10/20/16 00:08 05:23 05:49 WBC 14.5 H RBC 4.34 Hgb 12.5 Hct 39.4 MCV 90.8 MCH 28.7 MCHC 31.6 L RDW 13.7 Plt Count 319 MPV 8.6 Neut % (Auto) 68.5 Lymph % (Auto) 21.6 [place] % (Auto) 6.1 Eos % (Auto) 2.8 Baso % (Auto) 1.0 Neut # 9.9 H Lymph # 3.1 [place] # 0.9 H Eos # 0.4 Baso # 0.1 Puncture Site L rad pCO2 45 pO2 78 L HCO3 33.1 H ABG pH 7.50 H ABG Total CO2 36.5 H ABG O2 Saturation 97.8 ABG Base Excess 10.6 H ABG Hemoglobin 12.9 ABG Carboxyhemoglobin 2.1 H POC ABG HHb (Measured) 2.1 ABG Methemoglobin 0.7 Nico Test Pos A-a O2 Difference 80.0 Respiratory Index 1.0 Hgb O2 Saturation 95.1 Mechanical Rate 12 FiO2 30.0 Tidal Volume 500 PEEP 5 Sodium Potassium Chloride Carbon Dioxide Anion Gap BUN Creatinine Est GFR ( Amer) Est GFR (Non-Af Amer) POC Glucose (mg/dL) 259 H Random Glucose Calcium Phosphorus Magnesium Total Bilirubin AST ALT Alkaline Phosphatase Total Protein Albumin Globulin Albumin/Globulin Ratio 10/20/16 10/20/16 10/20/16 05:49 07:01 11:32 WBC RBC Hgb Hct MCV MCH MCHC RDW Plt Count MPV Neut % (Auto) Lymph % (Auto) [place] % (Auto) Eos % (Auto) Baso % (Auto) Neut # Lymph # [place] # Eos # Baso # Puncture Site pCO2 pO2 HCO3 ABG pH ABG Total CO2 ABG O2 Saturation ABG Base Excess ABG Hemoglobin ABG Carboxyhemoglobin POC ABG HHb (Measured) ABG Methemoglobin Nico Test A-a O2 Difference Respiratory Index Hgb O2 Saturation Mechanical Rate FiO2 Tidal Volume PEEP Sodium 156 H Potassium 4.0 Chloride 117 H Carbon Dioxide 32 H Anion Gap 11 BUN 34 H Creatinine 0.6 L Est GFR ( Amer) > 60 Est GFR (Non-Af Amer) > 60 POC Glucose (mg/dL) 233 H 197 H Random Glucose 243 H Calcium 9.7 Phosphorus 2.5 Magnesium 2.4 H Total Bilirubin 0.8 AST 70 H D ALT 54 H D Alkaline Phosphatase 124 Total Protein 7.0 Albumin 3.1 L Globulin 3.9 Albumin/Globulin Ratio 0.8 L 10/20/16 17:51 WBC RBC Hgb Hct MCV MCH MCHC RDW Plt Count MPV Neut % (Auto) Lymph % (Auto) [place] % (Auto) Eos % (Auto) Baso % (Auto) Neut # Lymph # [place] # Eos # Baso # Puncture Site pCO2 pO2 HCO3 ABG pH ABG Total CO2 ABG O2 Saturation ABG Base Excess ABG Hemoglobin ABG Carboxyhemoglobin POC ABG HHb (Measured) ABG Methemoglobin Nico Test A-a O2 Difference Respiratory Index Hgb O2 Saturation Mechanical Rate FiO2 Tidal Volume PEEP Sodium Potassium Chloride Carbon Dioxide Anion Gap BUN Creatinine Est GFR ( Amer) Est GFR (Non-Af Amer) POC Glucose (mg/dL) 175 H Random Glucose Calcium Phosphorus Magnesium Total Bilirubin AST ALT Alkaline Phosphatase Total Protein Albumin Globulin Albumin/Globulin Ratio Fingerstick Blood Sugar Results: 175 Assessment/Plan (1) Acute respiratory failure Assessment and plan: 61-year-old female with history of diabetes hypertension hypercholesterolemia admitted to the hospital with acute pneumonia. Complicated with acute respiratory failure. Altered mental status. Most likely bacterial meningitis. Patient is currently on antibiotic. Overall prognosis is very poor. CAT scan of the head showing evidence of ischemic changes. We'll speak to the patient's family, for possible tracheostomy and feeding tube. Patient is not a candidate for extubation at this time. DVT and GI prophylaxis, supportive care. We'll follow the patient Patient with the Bactrim meningitidis. On IV antibiotic. I spoke to the patient's family in details today. The agreed for tracheostomy and feeding tube. We'll get a surgical opinion in the morning and will follow the patient Current Visit: Yes Status: Acute (2) Bacterial meningoencephalitis Current Visit: Yes Status: Acute (3) Pneumonia Current Visit: Yes Status: Acute
[2016-10-21 04:28] LABS: BASO # 0.3 K/uL (0.0-0.2); BASO % 2.3 % (0.0-2.0); EOS # 0.7 K/uL (0.0-0.7); EOS % 5.6 % (0.0-4.0); HEMATOCRIT 38.5 % (34.0-47.0); LYMPH # 1.4 K/uL (1.0-4.3); LYMPH % 11.6 % (20.0-40.0); MEAN CELL VOLUME 90.9 fL (81.0-99.0); MEAN CORPUSCULAR HEMOGLOBIN 28.7 pg (27.0-31.0); MEAN CORPUSCULAR HGB CONC 31.6 g/dL (33.0-37.0); MEAN PLATELET VOLUME 8.8 fL (7.2-11.7); MONO # 0.6 K/uL (0.0-0.8); MONO % 4.7 % (0.0-10.0); RED CELL DISTRIBUTION WIDTH 13.6 % (11.5-14.5); WHITE BLOOD COUNT 12.2 K/uL (4.8-10.8)
[2016-10-21 04:44] LABS: CHLORIDE 119 mmol/L (98-107)
[2016-10-21 04:45] LABS: POTASSIUM 3.6 mmol/L (3.6-5.2); SODIUM 158 mmol/L (132-148)
[2016-10-21 04:47] LABS: ALB/GLOB RATIO 0.8 (1.0-2.1); ALKALINE PHOSPHATASE 128 U/L (38-126); AST/SGOT 65 U/L (14-36); BILIRUBIN,TOTAL 0.7 mg/dL (0.2-1.3); BLOOD UREA NITROGEN 31 mg/dL (7-17); CARBON DIOXIDE 33 mmol/L (22-30); GFR AFRICAN-AMERICAN > 60; GLUCOSE,RANDOM 186 mg/dL (65-105); TOTAL PROTEIN 6.7 g/dL (6.3-8.3)
[2016-10-21 04:48] LABS: ALT/SGPT 63 U/L (9-52); CALCIUM 9.4 mg/dl (8.6-10.4); MAGNESIUM 2.3 mg/dL (1.6-2.3); PHOSPHOROUS 2.6 mg/dL (2.5-4.5)
[2016-10-21] MEDS: Vancomycin 1 gm/NS 200 ml 1 GM/200 ML BAG IVPB SCH ×2 (05:30→18:05)
[2016-10-21 05:32] LABS: ABG ALLEN TEST POS; ABG MECHANICAL RATE 12; ARTERIAL BLOOD HGB O2 SAT 94.1 % (95.0-98.0); ATERIAL BLOOD GAS PEEP 5; CARBOXYHEMOGLOBIN 1.5 % (0.5-1.5); DRAW SITE L RAD; HHB 3.3 % (0.0-5.0)
[2016-10-21] MEDS: (Novolog) Insulin Aspart, Recombinant 100 u/ml 10 ml vial SC SCH ×4 (05:45→18:22)
[2016-10-21] MEDS: White Petrolatum/Mineral Oil Ophth Oint(3.5 gm) OU SCH ×2 (09:22→18:53)
[2016-10-21] MEDS: Enoxaparin 40 mg Syringe SC SCH (09:22)
[2016-10-21] MEDS: cefTRIAXone 2 GM in Sodium Chloride 0.9% 100 ML IVPB SCH ×2 (09:23→21:34)
[2016-10-21] MEDS: Pantoprazole 40 mg Susp UD PO SCH (09:23)
--- NOTE | 2016-10-21 09:43 | RAD ---
HISTORY: intubated COMPARISON: 10/20/2016 FINDINGS: LUNGS: No active pulmonary disease. PLEURA: No significant pleural effusion identified, no pneumothorax apparent. CARDIOVASCULAR: Normal heart size. ET tube and NG tube unchanged. Right PICC catheter unchanged. No congestive change. OSSEOUS STRUCTURES: No significant abnormalities. VISUALIZED UPPER ABDOMEN: Normal. OTHER FINDINGS: None. IMPRESSION: No active disease. Lines and tubes unchanged.
--- NOTE | 2016-10-21 10:17 | CP.PCM.CON ---
History of Present Illness - History of Present Illness History of Present Illness: Gen Sx: Dr Rodriguez PT is a 61F w/ PMH of HTN, DM, and HLD. Pt recently admitted for AMS w/ N/V on 10/08/16. Dx with Streptococcus pneumonia and bacterial meningitis. Pt being follow by ID. Currently pt is intubated and off sedation. At time of examination she is GCS 3T. She does not open eyes or respond to painful stimuli. Per nursing pt has been spontaneously opening eyes previously. Discussed had with ICU and daughter Myra. Pt has gradually been recovering from neurological deficits. Intact gag/cough reflex. Spontaneously breathing over the vent on 30% FiO2. Family elects to proceed with trach/PEG placement. Risks and benefits of procedure explained at length. PMH: asthma, htn, hld, dm PSH: , D&C x 2, Hysterectomy Allergies: Moxifloxacin, codeine, morphine, niacin, penicillin, tramadol Review of Systems - Review of Systems Systems not reviewed;Unavailable: Intubated Past Patient History - Infectious Disease Hx of Infectious Diseases: None - Tetanus Immunizations Tetanus Immunization: Unknown - Past Medical History & Family History Past Medical History?: Yes - Past Social History Smoking Status: Never Smoked - CARDIAC Hx Congestive Heart Failure: Yes Hx Hypercholesterolemia: Yes Hx Hypertension: Yes - PULMONARY Hx Asthma: Yes Hx Chronic Obstructive Pulmonary Disease (COPD): Yes - NEUROLOGICAL Hx Migraine: Yes - HEENT Hx HEENT Problems: Yes (Allergic Rhinitis) - RENAL Hx Chronic Kidney Disease: No - ENDOCRINE/METABOLIC Hx Endocrine Disorders: Yes Hx Diabetes Mellitus Type 2: Yes (FROM EMS) - HEMATOLOGICAL/ONCOLOGICAL Hx Anemia: Yes - INTEGUMENTARY Hx Dermatological Problems: No - MUSCULOSKELETAL/RHEUMATOLOGICAL Hx Arthritis: Yes - GASTROINTESTINAL Hx Gastrointestinal Disorders: No - GENITOURINARY/GYNECOLOGICAL Hx Genitourinary Disorders: No - PSYCHIATRIC Hx Anxiety: Yes Hx Depression: Yes Hx Substance Use: No - SURGICAL HISTORY Hx Surgeries: Yes Hx Section: Yes (FROM PRIOVIOUS CHART) Hx Dilation and Curettage: Yes (2013) Other/Comment: D&C (2013) - ANESTHESIA Hx Anesthesia: Yes Hx Anesthesia Reactions: No Hx Malignant Hyperthermia: No Meds Allergies/Adverse Reactions: Allergies Allergy/AdvReac Type Severity Reaction Status Date / Time moxifloxacin HCl Allergy Mild RASH Verified 10/08/16 05:04 [From Avelox] codeine Allergy RASH Verified 10/08/16 05:04 morphine AdvReac RASH Verified 10/08/16 05:04 niacin AdvReac ITCHING Verified 10/08/16 05:04 [From Niaspan Extended-Release] Penicillins AdvReac RASH Verified 10/08/16 05:04 tramadol AdvReac RASH Verified 10/08/16 05:04 - Medications Medications: Current Medications Acetaminophen (Tylenol 650mg/20.3ml Solution Ud) 650 mg NG Q6 PRN PRN Reason: FOR TEMP 101*F OR ABOVE Last Admin: 10/19/16 07:54 Dose: 650 mg Artificial Tears (Lacri-Lube) 1 gm OU BID [facility] Last Admin: 10/21/16 09:22 Dose: 1 gm Enoxaparin Sodium (Lovenox) 40 mg SC DAILY [facility] Last Admin: 10/21/16 09:22 Dose: 40 mg Ceftriaxone Sodium 2 gm/ (Sodium Chloride) 100 mls @ 100 mls/hr IVPB Q12 [facility] Last Admin: 10/21/16 09:23 Dose: 100 mls/hr Vancomycin/Sodium Chloride (Vancocin) 1 gm in 200 mls @ 133.333 mls/hr IVPB Q12H [facility] Stop: 10/24/16 18:31 Last Admin: 10/21/16 05:30 Dose: 133.333 mls/hr Insulin Aspart (Novolog) 0 unit SC Q6 MINI PRN Reason: Protocol Last Admin: 10/21/16 05:45 Dose: 2 unit Insulin Detemir (Levemir) 40 unit SC Q12 [facility] Last Admin: 10/20/16 21:53 Dose: 40 unit Lactulose (Enulose) 20 gm NG BID [facility] Last Admin: 10/21/16 09:22 Dose: 20 gm Metoprolol Tartrate (Lopressor) 25 mg NG BID [facility] Last Admin: 10/21/16 09:22 Dose: 25 mg Pantoprazole Sodium (Protonix Susp) 40 mg PO DAILY [facility] Last Admin: 10/21/16 09:23 Dose: 40 mg Physical Exam - Constitutional Appears: Chronically Ill - Head Exam Head Exam: NORMOCEPHALIC - ENT Exam ENT Exam: Mucous Membranes Dry - Neck Exam Neck exam: Positive for: Normal Inspection. Negative for: Thyromegaly - Respiratory Exam Respiratory Exam: absent: Accessory Muscle Use, Respiratory Distress Additional comments: Ventilator - Fi02 30%, PEEP 5 - Cardiovascular Exam Cardiovascular Exam: REGULAR RHYTHM. absent: Tachycardia - GI/Abdominal Exam GI & Abdominal Exam: Soft. absent: Distended - Skin Skin Exam: Normal Color, Warm Results - Vital Signs Recent Vital Signs: Last Vital Signs Temp 100.8 F H 10/21/16 08:00 Pulse 89 10/21/16 08:00 Resp 22 10/21/16 08:00 BP 139/68 10/21/16 09:22 Pulse Ox 95 10/21/16 08:00 - Labs Result Diagrams: 10/21/16 04:23 10/21/16 04:23 Labs: Laboratory Results - last 24 hr 10/20/16 10/20/16 10/20/16 11:32 17:51 23:54 WBC RBC Hgb Hct MCV MCH MCHC RDW Plt Count MPV Neut % (Auto) Lymph % (Auto) [place] % (Auto) Eos % (Auto) Baso % (Auto) Neut # Lymph # [place] # Eos # Baso # Puncture Site pCO2 pO2 HCO3 ABG pH ABG Total CO2 ABG O2 Saturation ABG Base Excess ABG Hemoglobin ABG Carboxyhemoglobin POC ABG HHb (Measured) ABG Methemoglobin Nico Test A-a O2 Difference Respiratory Index Hgb O2 Saturation Mechanical Rate FiO2 Tidal Volume PEEP Sodium Potassium Chloride Carbon Dioxide Anion Gap BUN Creatinine Est GFR ( Amer) Est GFR (Non-Af Amer) POC Glucose (mg/dL) 197 H 175 H 142 H Random Glucose Calcium Phosphorus Magnesium Total Bilirubin AST ALT Alkaline Phosphatase Total Protein Albumin Globulin Albumin/Globulin Ratio Vancomycin Trough 10/21/16 10/21/16 10/21/16 00:00 04:23 04:23 WBC 12.2 H RBC 4.23 Hgb 12.2 Hct 38.5 MCV 90.9 MCH 28.7 MCHC 31.6 L RDW 13.6 Plt Count 265 MPV 8.8 Neut % (Auto) 75.8 H Lymph % (Auto) 11.6 L [place] % (Auto) 4.7 Eos % (Auto) 5.6 H Baso % (Auto) 2.3 H Neut # 9.3 H Lymph # 1.4 [place] # 0.6 Eos # 0.7 Baso # 0.3 H Puncture Site L rad pCO2 44 pO2 72 L HCO3 32.0 H ABG pH 7.49 H ABG Total CO2 34.9 H ABG O2 Saturation 96.6 ABG Base Excess 9.1 H ABG Hemoglobin 12.0 ABG Carboxyhemoglobin 1.5 POC ABG HHb (Measured) 3.3 ABG Methemoglobin 1.0 Nico Test Pos A-a O2 Difference 87.0 Respiratory Index 1.2 Hgb O2 Saturation 94.1 L Mechanical Rate 12 FiO2 30.0 Tidal Volume 500 PEEP 5 Sodium 158 H Potassium 3.6 Chloride 119 H Carbon Dioxide 33 H Anion Gap 10 BUN 31 H Creatinine 0.5 L Est GFR ( Amer) > 60 Est GFR (Non-Af Amer) > 60 POC Glucose (mg/dL) Random Glucose 186 H Calcium 9.4 Phosphorus 2.6 Magnesium 2.3 Total Bilirubin 0.7 AST 65 H ALT 63 H Alkaline Phosphatase 128 H Total Protein 6.7 Albumin 3.0 L Globulin 3.7 Albumin/Globulin Ratio 0.8 L Vancomycin Trough 10/21/16 10/21/16 04:23 05:27 WBC RBC Hgb Hct MCV MCH MCHC RDW Plt Count MPV Neut % (Auto) Lymph % (Auto) [place] % (Auto) Eos % (Auto) Baso % (Auto) Neut # Lymph # [place] # Eos # Baso # Puncture Site pCO2 pO2 HCO3 ABG pH ABG Total CO2 ABG O2 Saturation ABG Base Excess ABG Hemoglobin ABG Carboxyhemoglobin POC ABG HHb (Measured) ABG Methemoglobin Nico Test A-a O2 Difference Respiratory Index Hgb O2 Saturation Mechanical Rate FiO2 Tidal Volume PEEP Sodium Potassium Chloride Carbon Dioxide Anion Gap BUN Creatinine Est GFR ( Amer) Est GFR (Non-Af Amer) POC Glucose (mg/dL) 179 H Random Glucose Calcium Phosphorus Magnesium Total Bilirubin AST ALT Alkaline Phosphatase Total Protein Albumin Globulin Albumin/Globulin Ratio Vancomycin Trough 9.5 Assessment & Plan - Assessment and Plan (Free Text) Assessment: 61F with respiratory failure 2/2 streptococcus pneumonia, also with AMS 2/2 bacterial meningitis Plan: plan for tracheostomy /6 hold lvx tomorrow hold any tube feeding after MN PEG per GI team case d/w Dr Michael Rodriguez, PGY2 - Date & Time Date: 10/21/16 Time: 10:25
[2016-10-21] MEDS: Insulin Detemir 100 units/ml Vial (Levemir) SC SCH ×2 (11:08→21:35)
--- NOTE | 2016-10-21 12:36 | CP.PCM.CON ---
<Farhad Martinez - Last Filed: 10/21/16 14:23> History of Present Illness - History of Present Illness History of Present Illness: PGY4 GI Fellow Consult Note Patient is a 61yo female with PMHx significant for asthma, DM, HTN, HLD who presented to the ED with altered mentation. The patient's son provided much of the history initially as patient required emergent intubation and could not provide history. The evening of admission, patient complained of headache and nausea. She was found later that evening vomiting in the kitchen and was incoherent. EMS were contacted and patient was brought to for further evaluation. Since admission she has been diagnosed with Strep pneumo. bacterial meningitis and recieved high dose steroid therapy along with prolonged antibiotic therapy. Currently, she is getting ceftriaxone/vancomycin. Our service was consulted for PEG tube evaluation. The patient has remained intubated and is unresponsive at present. While she does have a gag reflex and is breathing at a rate higher than her vent setting, she does not withdraw to painful stimuli and does not follow any commands when sedation has been weaned. Her most recent CT does reveal multifocal ischemic changes. PMHx: See HPI PSHx: C section, D&C, ROBERT FHx: Mother - breast cancer, CVA; Brother - DM Social: Not a smoker, no EtOH use or illicit drug use Review of Systems - Review of Systems Systems not reviewed;Unavailable: Acuity of Condition Past Patient History - Infectious Disease Hx of Infectious Diseases: None - Tetanus Immunizations Tetanus Immunization: Unknown - Past Medical History & Family History Past Medical History?: Yes - Past Social History Smoking Status: Never Smoked - CARDIAC Hx Congestive Heart Failure: Yes Hx Hypercholesterolemia: Yes Hx Hypertension: Yes - PULMONARY Hx Asthma: Yes Hx Chronic Obstructive Pulmonary Disease (COPD): Yes - NEUROLOGICAL Hx Migraine: Yes - HEENT Hx HEENT Problems: Yes (Allergic Rhinitis) - RENAL Hx Chronic Kidney Disease: No - ENDOCRINE/METABOLIC Hx Endocrine Disorders: Yes Hx Diabetes Mellitus Type 2: Yes (FROM EMS) - HEMATOLOGICAL/ONCOLOGICAL Hx Anemia: Yes - INTEGUMENTARY Hx Dermatological Problems: No - MUSCULOSKELETAL/RHEUMATOLOGICAL Hx Arthritis: Yes - GASTROINTESTINAL Hx Gastrointestinal Disorders: No - GENITOURINARY/GYNECOLOGICAL Hx Genitourinary Disorders: No - PSYCHIATRIC Hx Anxiety: Yes Hx Depression: Yes Hx Substance Use: No - SURGICAL HISTORY Hx Surgeries: Yes Hx Section: Yes (FROM PRIOVIOUS CHART) Hx Dilation and Curettage: Yes (2013) Other/Comment: D&C (2013) - ANESTHESIA Hx Anesthesia: Yes Hx Anesthesia Reactions: No Hx Malignant Hyperthermia: No Meds Allergies/Adverse Reactions: Allergies Allergy/AdvReac Type Severity Reaction Status Date / Time moxifloxacin HCl Allergy Mild RASH Verified 10/08/16 05:04 [From Avelox] codeine Allergy RASH Verified 10/08/16 05:04 morphine AdvReac RASH Verified 10/08/16 05:04 niacin AdvReac ITCHING Verified 10/08/16 05:04 [From Niaspan Extended-Release] Penicillins AdvReac RASH Verified 10/08/16 05:04 tramadol AdvReac RASH Verified 10/08/16 05:04 - Medications Medications: Current Medications Acetaminophen (Tylenol 650mg/20.3ml Solution Ud) 650 mg NG Q6 PRN PRN Reason: FOR TEMP 101*F OR ABOVE Last Admin: 10/19/16 07:54 Dose: 650 mg Artificial Tears (Lacri-Lube) 1 gm OU BID [facility] Last Admin: 10/21/16 09:22 Dose: 1 gm Enoxaparin Sodium (Lovenox) 40 mg SC DAILY [facility] Last Admin: 10/21/16 09:22 Dose: 40 mg Ceftriaxone Sodium 2 gm/ (Sodium Chloride) 100 mls @ 100 mls/hr IVPB Q12 [facility] Last Admin: 10/21/16 09:23 Dose: 100 mls/hr Vancomycin/Sodium Chloride (Vancocin) 1 gm in 200 mls @ 133.333 mls/hr IVPB Q12H [facility] Stop: 10/24/16 18:31 Last Admin: 10/21/16 05:30 Dose: 133.333 mls/hr Insulin Aspart (Novolog) 0 unit SC Q6 [facility] PRN Reason: Protocol Last Admin: 10/21/16 05:45 Dose: 2 unit Insulin Detemir (Levemir) 40 unit SC Q12 [facility] Last Admin: 10/21/16 11:08 Dose: 40 unit Lactulose (Enulose) 20 gm NG BID [facility] Last Admin: 10/21/16 09:22 Dose: 20 gm Metoprolol Tartrate (Lopressor) 25 mg NG BID [facility] Last Admin: 10/21/16 09:22 Dose: 25 mg Pantoprazole Sodium (Protonix Susp) 40 mg PO DAILY [facility] Last Admin: 10/21/16 09:23 Dose: 40 mg Physical Exam - Constitutional Appears: Other (obese, intubated) - Eye Exam Eye Exam: absent: EOMI, PERRL - ENT Exam ENT Exam: Mucous Membranes Dry - Respiratory Exam Respiratory Exam: Clear to Auscultation Bilateral. absent: Rales, Rhonchi, Wheezes - Cardiovascular Exam Cardiovascular Exam: RRR, +S1, +S2 - GI/Abdominal Exam GI & Abdominal Exam: Normal Bowel Sounds, Soft. absent: Distended, Firm, Guarding, Rigid, Tenderness - Extremities Exam Extremities exam: Positive for: normal inspection. Negative for: pedal edema - Neurological Exam Neurological exam: Altered Additional comments: patient does not respond to questions, does not follow simple commands, does not have any meaningful movement, does not withdraw from painful stimuli - Skin Skin Exam: Dry, Warm Results - Vital Signs Recent Vital Signs: Last Vital Signs Temp 100.8 F H 10/21/16 08:00 Pulse 78 10/21/16 11:06 Resp 11 L 10/21/16 11:06 BP 129/63 10/21/16 11:06 Pulse Ox 100 10/21/16 11:00 - Labs Result Diagrams: 10/21/16 04:23 10/21/16 04:23 Labs: Laboratory Results - last 24 hr 10/20/16 10/20/16 10/21/16 17:51 23:54 00:00 WBC RBC Hgb Hct MCV MCH MCHC RDW Plt Count MPV Neut % (Auto) Lymph % (Auto) Larue % (Auto) Eos % (Auto) Baso % (Auto) Neut # Lymph # Larue # Eos # Baso # Puncture Site L rad pCO2 44 pO2 72 L HCO3 32.0 H ABG pH 7.49 H ABG Total CO2 34.9 H ABG O2 Saturation 96.6 ABG Base Excess 9.1 H ABG Hemoglobin 12.0 ABG Carboxyhemoglobin 1.5 POC ABG HHb (Measured) 3.3 ABG Methemoglobin 1.0 Nico Test Pos A-a O2 Difference 87.0 Respiratory Index 1.2 Hgb O2 Saturation 94.1 L Mechanical Rate 12 FiO2 30.0 Tidal Volume 500 PEEP 5 Sodium Potassium Chloride Carbon Dioxide Anion Gap BUN Creatinine Est GFR ( Amer) Est GFR (Non-Af Amer) POC Glucose (mg/dL) 175 H 142 H Random Glucose Calcium Phosphorus Magnesium Total Bilirubin AST ALT Alkaline Phosphatase Total Protein Albumin Globulin Albumin/Globulin Ratio Vancomycin Trough 10/21/16 10/21/16 10/21/16 04:23 04:23 04:23 WBC 12.2 H RBC 4.23 Hgb 12.2 Hct 38.5 MCV 90.9 MCH 28.7 MCHC 31.6 L RDW 13.6 Plt Count 265 MPV 8.8 Neut % (Auto) 75.8 H Lymph % (Auto) 11.6 L Larue % (Auto) 4.7 Eos % (Auto) 5.6 H Baso % (Auto) 2.3 H Neut # 9.3 H Lymph # 1.4 Larue # 0.6 Eos # 0.7 Baso # 0.3 H Puncture Site pCO2 pO2 HCO3 ABG pH ABG Total CO2 ABG O2 Saturation ABG Base Excess ABG Hemoglobin ABG Carboxyhemoglobin POC ABG HHb (Measured) ABG Methemoglobin Nico Test A-a O2 Difference Respiratory Index Hgb O2 Saturation Mechanical Rate FiO2 Tidal Volume PEEP Sodium 158 H Potassium 3.6 Chloride 119 H Carbon Dioxide 33 H Anion Gap 10 BUN 31 H Creatinine 0.5 L Est GFR ( Amer) > 60 Est GFR (Non-Af Amer) > 60 POC Glucose (mg/dL) Random Glucose 186 H Calcium 9.4 Phosphorus 2.6 Magnesium 2.3 Total Bilirubin 0.7 AST 65 H ALT 63 H Alkaline Phosphatase 128 H Total Protein 6.7 Albumin 3.0 L Globulin 3.7 Albumin/Globulin Ratio 0.8 L Vancomycin Trough 9.5 10/21/16 10/21/16 05:27 12:10 WBC RBC Hgb Hct MCV MCH MCHC RDW Plt Count MPV Neut % (Auto) Lymph % (Auto) Larue % (Auto) Eos % (Auto) Baso % (Auto) Neut # Lymph # Larue # Eos # Baso # Puncture Site pCO2 pO2 HCO3 ABG pH ABG Total CO2 ABG O2 Saturation ABG Base Excess ABG Hemoglobin ABG Carboxyhemoglobin POC ABG HHb (Measured) ABG Methemoglobin Nico Test A-a O2 Difference Respiratory Index Hgb O2 Saturation Mechanical Rate FiO2 Tidal Volume PEEP Sodium Potassium Chloride Carbon Dioxide Anion Gap BUN Creatinine Est GFR ( Amer) Est GFR (Non-Af Amer) POC Glucose (mg/dL) 179 H 174 H Random Glucose Calcium Phosphorus Magnesium Total Bilirubin AST ALT Alkaline Phosphatase Total Protein Albumin Globulin Albumin/Globulin Ratio Vancomycin Trough Assessment & Plan - Assessment and Plan (Free Text) Assessment: Patient is a 61yo female with PMHx significant for asthma, DM, HTN, HLD who presented to the ED with altered mentation. The patient's son provided much of the history initially as patient required emergent intubation and could not provide history. -Bacterial meningitis -Multifocal ischemic CVA with severe encephalopathy -Respiratory failure -Dysphagia as a result of the above -Obesity -DM -HTN Plan: -Check PT/INR -The patient underwent repeat CT head today to rule out abscess formation -Await results of above -Given clinical condition, consideration of hospice care should be discussed with family -Will need to discuss consent for placement of PEG tube with family -The patient is scheduled for tracheostomy tomorrow, will not be able to coordinate for PEG placement tomorrow - Date & Time Date: 10/21/16 Time: 13:00 <Salo De La Cruz MD - Last Filed: 10/21/16 15:46> Meds - Medications Medications: Current Medications Acetaminophen (Tylenol 650mg/20.3ml Solution Ud) 650 mg NG Q6 PRN PRN Reason: FOR TEMP 101*F OR ABOVE Last Admin: 10/19/16 07:54 Dose: 650 mg Artificial Tears (Lacri-Lube) 1 gm OU BID [facility] Last Admin: 10/21/16 09:22 Dose: 1 gm Enoxaparin Sodium (Lovenox) 40 mg SC DAILY [facility] Last Admin: 10/21/16 09:22 Dose: 40 mg Ceftriaxone Sodium 2 gm/ (Sodium Chloride) 100 mls @ 100 mls/hr IVPB Q12 [facility] Last Admin: 10/21/16 09:23 Dose: 100 mls/hr Vancomycin/Sodium Chloride (Vancocin) 1 gm in 200 mls @ 133.333 mls/hr IVPB Q12H [facility] Stop: 10/24/16 18:31 Last Admin: 10/21/16 05:30 Dose: 133.333 mls/hr Insulin Aspart (Novolog) 0 unit SC Q6 [facility] PRN Reason: Protocol Last Admin: 10/21/16 14:07 Dose: 2 unit Insulin Detemir (Levemir) 40 unit SC Q12 [facility] Last Admin: 10/21/16 11:08 Dose: 40 unit Lactulose (Enulose) 20 gm NG BID [facility] Last Admin: 10/21/16 09:22 Dose: 20 gm Metoprolol Tartrate (Lopressor) 25 mg NG BID [facility] Last Admin: 10/21/16 09:22 Dose: 25 mg Pantoprazole Sodium (Protonix Susp) 40 mg PO DAILY [facility] Last Admin: 10/21/16 09:23 Dose: 40 mg Results - Vital Signs Recent Vital Signs: Last Vital Signs Temp 98.9 F 10/21/16 12:00 Pulse 81 10/21/16 15:05 Resp 14 10/21/16 15:05 BP 116/53 L 10/21/16 15:05 Pulse Ox 96 10/21/16 15:05 - Labs Result Diagrams: 10/21/16 04:23 10/21/16 04:23 Labs: Laboratory Results - last 24 hr 10/20/16 10/20/16 10/21/16 17:51 23:54 00:00 WBC RBC Hgb Hct MCV MCH MCHC RDW Plt Count MPV Neut % (Auto) Lymph % (Auto) Larue % (Auto) Eos % (Auto) Baso % (Auto) Neut # Lymph # Larue # Eos # Baso # Puncture Site L rad pCO2 44 pO2 72 L HCO3 32.0 H ABG pH 7.49 H ABG Total CO2 34.9 H ABG O2 Saturation 96.6 ABG Base Excess 9.1 H ABG Hemoglobin 12.0 ABG Carboxyhemoglobin 1.5 POC ABG HHb (Measured) 3.3 ABG Methemoglobin 1.0 Nico Test Pos A-a O2 Difference 87.0 Respiratory Index 1.2 Hgb O2 Saturation 94.1 L Mechanical Rate 12 FiO2 30.0 Tidal Volume 500 PEEP 5 Sodium Potassium Chloride Carbon Dioxide Anion Gap BUN Creatinine Est GFR ( Amer) Est GFR (Non-Af Amer) POC Glucose (mg/dL) 175 H 142 H Random Glucose Calcium Phosphorus Magnesium Total Bilirubin AST ALT Alkaline Phosphatase Total Protein Albumin Globulin Albumin/Globulin Ratio Vancomycin Trough 10/21/16 10/21/16 10/21/16 04:23 04:23 04:23 WBC 12.2 H RBC 4.23 Hgb 12.2 Hct 38.5 MCV 90.9 MCH 28.7 MCHC 31.6 L RDW 13.6 Plt Count 265 MPV 8.8 Neut % (Auto) 75.8 H Lymph % (Auto) 11.6 L Larue % (Auto) 4.7 Eos % (Auto) 5.6 H Baso % (Auto) 2.3 H Neut # 9.3 H Lymph # 1.4 Larue # 0.6 Eos # 0.7 Baso # 0.3 H Puncture Site pCO2 pO2 HCO3 ABG pH ABG Total CO2 ABG O2 Saturation ABG Base Excess ABG Hemoglobin ABG Carboxyhemoglobin POC ABG HHb (Measured) ABG Methemoglobin Nico Test A-a O2 Difference Respiratory Index Hgb O2 Saturation Mechanical Rate FiO2 Tidal Volume PEEP Sodium 158 H Potassium 3.6 Chloride 119 H Carbon Dioxide 33 H Anion Gap 10 BUN 31 H Creatinine 0.5 L Est GFR ( Amer) > 60 Est GFR (Non-Af Amer) > 60 POC Glucose (mg/dL) Random Glucose 186 H Calcium 9.4 Phosphorus 2.6 Magnesium 2.3 Total Bilirubin 0.7 AST 65 H ALT 63 H Alkaline Phosphatase 128 H Total Protein 6.7 Albumin 3.0 L Globulin 3.7 Albumin/Globulin Ratio 0.8 L Vancomycin Trough 9.5 10/21/16 10/21/16 05:27 12:10 WBC RBC Hgb Hct MCV MCH MCHC RDW Plt Count MPV Neut % (Auto) Lymph % (Auto) Larue % (Auto) Eos % (Auto) Baso % (Auto) Neut # Lymph # Larue # Eos # Baso # Puncture Site pCO2 pO2 HCO3 ABG pH ABG Total CO2 ABG O2 Saturation ABG Base Excess ABG Hemoglobin ABG Carboxyhemoglobin POC ABG HHb (Measured) ABG Methemoglobin Nico Test A-a O2 Difference Respiratory Index Hgb O2 Saturation Mechanical Rate FiO2 Tidal Volume PEEP Sodium Potassium Chloride Carbon Dioxide Anion Gap BUN Creatinine Est GFR ( Amer) Est GFR (Non-Af Amer) POC Glucose (mg/dL) 179 H 174 H Random Glucose Calcium Phosphorus Magnesium Total Bilirubin AST ALT Alkaline Phosphatase Total Protein Albumin Globulin Albumin/Globulin Ratio Vancomycin Trough Attending/Attestation - Attestation I have personally seen and examined this patient.: Yes I have fully participated in the care of the patient.: Yes I have reviewed all pertinent clinical information: Yes Notes (Text): 10/21/16 15:43 This is a 61 yr female seen on Gi rounds in MICU today. She has PMHx significant for asthma, DM, HTN, HLD who presented to the ED with altered mentation found to have bacterial meningitis and multifocal brain ischemia with respiratory failure. Gi consulted for PEG placement. Needs updated coagulation profile and will schedule for PEG later this week. Trach placement on Friday. Consent needed from [facility]. - Date & Time 10/21/16 15:45
--- NOTE | 2016-10-21 14:28 | CT ---
PROCEDURE: CT HEAD WITHOUT CONTRAST. HISTORY: AMS COMPARISON: Noncontrast head CT performed 10/13/16 TECHNIQUE: Axial computed tomography images were obtained through the head/brain without intravenous contrast. Radiation dose: Total exam DLP = 2597.07 mGy-cm. This CT exam was performed using one or more of the following dose reduction techniques: Automated exposure control, adjustment of the mA and/or kV according to patient size, and/or use of iterative reconstruction technique. FINDINGS: Streak artifact from dental hardware and motion. HEMORRHAGE: No intracranial hemorrhage. BRAIN: No mass effect or edema. Abnormal low density within the kearney radiata and centrum semiovale bilaterally. Scattered white matter hypodensities, which are nonspecific, but often seen with chronic microvascular ischemic disease. Please note that MRI with diffusion imaging is more sensitive in the detection of acute ischemic event. VENTRICLES: No hydrocephalus. CALVARIUM: Unremarkable. PARANASAL SINUSES: Opacification of bilateral sphenoid sinuses. Mucosal thickening of the right frontal sinus. Mucosal thickening of the ethmoid air cells. MASTOID AIR CELLS: Complete opacification of the mastoid air cells. OTHER FINDINGS: Partial opacification of the external auditory canals. IMPRESSION: Examination limited by motion. Nonspecific white matter changes and hypodensities predominantly involving kearney radiata and centrum semiovale bilaterally as above concerning for multifocal ischemia. Opacification of bilateral sphenoid sinuses. Mucosal thickening of the right frontal sinus. Mucosal thickening of the ethmoid air cells. Correlate clinically for sinusitis. Examination limited by mastoid air cells ; correlate clinically for otomastoiditis.
--- NOTE | 2016-10-21 14:38 | CP.PCM.CON ---
History of Present Illness - History of Present Illness History of Present Illness: Palliative consult Requested by Miguel GAO Reason: goals of care Patient is a 61 yo female admitted from home with AMS, fallowed by headache and vomiting, as per family. The CT head/neck was significant for pansinusitis and pneumonia. BC + for Strep infection.IV Tx, Vanco and Rocephin initiated. Patient remains intubated, as weaning process was not successful. PMH: anemia, anxiety, CHF, COPD, DM, HTN Soc. Hx: , lives at home with her daughter Fam hx: no contributory Review of Systems - Review of Systems Systems not reviewed;Unavailable: Intubated Past Patient History - Infectious Disease Hx of Infectious Diseases: None - Tetanus Immunizations Tetanus Immunization: Unknown - Past Medical History & Family History Past Medical History?: Yes - Past Social History Smoking Status: Never Smoked - CARDIAC Hx Congestive Heart Failure: Yes Hx Hypercholesterolemia: Yes Hx Hypertension: Yes - PULMONARY Hx Asthma: Yes Hx Chronic Obstructive Pulmonary Disease (COPD): Yes - NEUROLOGICAL Hx Migraine: Yes - HEENT Hx HEENT Problems: Yes (Allergic Rhinitis) - RENAL Hx Chronic Kidney Disease: No - ENDOCRINE/METABOLIC Hx Endocrine Disorders: Yes Hx Diabetes Mellitus Type 2: Yes (FROM EMS) - HEMATOLOGICAL/ONCOLOGICAL Hx Anemia: Yes - INTEGUMENTARY Hx Dermatological Problems: No - MUSCULOSKELETAL/RHEUMATOLOGICAL Hx Arthritis: Yes - GASTROINTESTINAL Hx Gastrointestinal Disorders: No - GENITOURINARY/GYNECOLOGICAL Hx Genitourinary Disorders: No - PSYCHIATRIC Hx Anxiety: Yes Hx Depression: Yes Hx Substance Use: No - SURGICAL HISTORY Hx Surgeries: Yes Hx Section: Yes (FROM PRIOVIOUS CHART) Hx Dilation and Curettage: Yes (2013) Other/Comment: D&C (2013) - ANESTHESIA Hx Anesthesia: Yes Hx Anesthesia Reactions: No Hx Malignant Hyperthermia: No Meds Allergies/Adverse Reactions: Allergies Allergy/AdvReac Type Severity Reaction Status Date / Time moxifloxacin HCl Allergy Mild RASH Verified 10/08/16 05:04 [From Avelox] codeine Allergy RASH Verified 10/08/16 05:04 morphine AdvReac RASH Verified 10/08/16 05:04 niacin AdvReac ITCHING Verified 10/08/16 05:04 [From Niaspan Extended-Release] Penicillins AdvReac RASH Verified 10/08/16 05:04 tramadol AdvReac RASH Verified 10/08/16 05:04 - Medications Medications: Current Medications Acetaminophen (Tylenol 650mg/20.3ml Solution Ud) 650 mg NG Q6 PRN PRN Reason: FOR TEMP 101*F OR ABOVE Last Admin: 10/19/16 07:54 Dose: 650 mg Artificial Tears (Lacri-Lube) 1 gm OU BID [facility] Last Admin: 10/21/16 09:22 Dose: 1 gm Enoxaparin Sodium (Lovenox) 40 mg SC DAILY [facility] Last Admin: 10/21/16 09:22 Dose: 40 mg Ceftriaxone Sodium 2 gm/ (Sodium Chloride) 100 mls @ 100 mls/hr IVPB Q12 [facility] Last Admin: 10/21/16 09:23 Dose: 100 mls/hr Vancomycin/Sodium Chloride (Vancocin) 1 gm in 200 mls @ 133.333 mls/hr IVPB Q12H [facility] Stop: 10/24/16 18:31 Last Admin: 10/21/16 05:30 Dose: 133.333 mls/hr Insulin Aspart (Novolog) 0 unit SC Q6 [facility] PRN Reason: Protocol Last Admin: 10/21/16 14:07 Dose: 2 unit Insulin Detemir (Levemir) 40 unit SC Q12 [facility] Last Admin: 10/21/16 11:08 Dose: 40 unit Lactulose (Enulose) 20 gm NG BID [facility] Last Admin: 10/21/16 09:22 Dose: 20 gm Metoprolol Tartrate (Lopressor) 25 mg NG BID [facility] Last Admin: 10/21/16 09:22 Dose: 25 mg Pantoprazole Sodium (Protonix Susp) 40 mg PO DAILY [facility] Last Admin: 10/21/16 09:23 Dose: 40 mg Physical Exam - Constitutional Appears: In Acute Distress - Head Exam Head Exam: ATRAUMATIC, NORMAL INSPECTION, NORMOCEPHALIC - Eye Exam Eye Exam: Normal appearance Pupil Exam: Fixed - ENT Exam ENT Exam: Normal Exam Additional comments: ET tube and NGT - Neck Exam Neck exam: Positive for: Normal Inspection - Respiratory Exam Additional comments: On MV support - Cardiovascular Exam Cardiovascular Exam: Tachycardia - GI/Abdominal Exam GI & Abdominal Exam: Normal Bowel Sounds - Rectal Exam Rectal Exam: Deferred - Exam Additional comments: Santiago cath - Back Exam Back exam: NORMAL INSPECTION - Neurological Exam Neurological exam: Motor Sensory Deficit - Psychiatric Exam Psychiatric exam: Flat Affect - Skin Skin Exam: Pallor Results - Vital Signs Recent Vital Signs: Last Vital Signs Temp 98.9 F 10/21/16 12:00 Pulse 83 10/21/16 14:05 Resp 18 10/21/16 14:05 BP 142/66 10/21/16 14:05 Pulse Ox 97 10/21/16 14:05 - Labs Result Diagrams: 10/21/16 04:23 10/21/16 04:23 Labs: Laboratory Results - last 24 hr 10/20/16 10/20/16 10/21/16 17:51 23:54 00:00 WBC RBC Hgb Hct MCV MCH MCHC RDW Plt Count MPV Neut % (Auto) Lymph % (Auto) [place] % (Auto) Eos % (Auto) Baso % (Auto) Neut # Lymph # [place] # Eos # Baso # Puncture Site L rad pCO2 44 pO2 72 L HCO3 32.0 H ABG pH 7.49 H ABG Total CO2 34.9 H ABG O2 Saturation 96.6 ABG Base Excess 9.1 H ABG Hemoglobin 12.0 ABG Carboxyhemoglobin 1.5 POC ABG HHb (Measured) 3.3 ABG Methemoglobin 1.0 Nico Test Pos A-a O2 Difference 87.0 Respiratory Index 1.2 Hgb O2 Saturation 94.1 L Mechanical Rate 12 FiO2 30.0 Tidal Volume 500 PEEP 5 Sodium Potassium Chloride Carbon Dioxide Anion Gap BUN Creatinine Est GFR ( Amer) Est GFR (Non-Af Amer) POC Glucose (mg/dL) 175 H 142 H Random Glucose Calcium Phosphorus Magnesium Total Bilirubin AST ALT Alkaline Phosphatase Total Protein Albumin Globulin Albumin/Globulin Ratio Vancomycin Trough 10/21/16 10/21/16 10/21/16 04:23 04:23 04:23 WBC 12.2 H RBC 4.23 Hgb 12.2 Hct 38.5 MCV 90.9 MCH 28.7 MCHC 31.6 L RDW 13.6 Plt Count 265 MPV 8.8 Neut % (Auto) 75.8 H Lymph % (Auto) 11.6 L [place] % (Auto) 4.7 Eos % (Auto) 5.6 H Baso % (Auto) 2.3 H Neut # 9.3 H Lymph # 1.4 [place] # 0.6 Eos # 0.7 Baso # 0.3 H Puncture Site pCO2 pO2 HCO3 ABG pH ABG Total CO2 ABG O2 Saturation ABG Base Excess ABG Hemoglobin ABG Carboxyhemoglobin POC ABG HHb (Measured) ABG Methemoglobin Nico Test A-a O2 Difference Respiratory Index Hgb O2 Saturation Mechanical Rate FiO2 Tidal Volume PEEP Sodium 158 H Potassium 3.6 Chloride 119 H Carbon Dioxide 33 H Anion Gap 10 BUN 31 H Creatinine 0.5 L Est GFR ( Amer) > 60 Est GFR (Non-Af Amer) > 60 POC Glucose (mg/dL) Random Glucose 186 H Calcium 9.4 Phosphorus 2.6 Magnesium 2.3 Total Bilirubin 0.7 AST 65 H ALT 63 H Alkaline Phosphatase 128 H Total Protein 6.7 Albumin 3.0 L Globulin 3.7 Albumin/Globulin Ratio 0.8 L Vancomycin Trough 9.5 10/21/16 10/21/16 05:27 12:10 WBC RBC Hgb Hct MCV MCH MCHC RDW Plt Count MPV Neut % (Auto) Lymph % (Auto) [place] % (Auto) Eos % (Auto) Baso % (Auto) Neut # Lymph # [place] # Eos # Baso # Puncture Site pCO2 pO2 HCO3 ABG pH ABG Total CO2 ABG O2 Saturation ABG Base Excess ABG Hemoglobin ABG Carboxyhemoglobin POC ABG HHb (Measured) ABG Methemoglobin Nico Test A-a O2 Difference Respiratory Index Hgb O2 Saturation Mechanical Rate FiO2 Tidal Volume PEEP Sodium Potassium Chloride Carbon Dioxide Anion Gap BUN Creatinine Est GFR ( Amer) Est GFR (Non-Af Amer) POC Glucose (mg/dL) 179 H 174 H Random Glucose Calcium Phosphorus Magnesium Total Bilirubin AST ALT Alkaline Phosphatase Total Protein Albumin Globulin Albumin/Globulin Ratio Vancomycin Trough Assessment & Plan - Assessment and Plan (Free Text) Assessment: Palliative consult Code status Full Code, no advance directive on chart, PPS 0%, ROS unobtainable due to intubation I reviewed medical records, all diagnostic studies, examined patient in the bed and discussed her presentation with ICU team. Patient is with GCS of 3, on MV support. Skin is pale and dry. Eyes fixed, patient not responding to tactile, verbal stimuli. As per ICU report, patient is not a candidate for weaning due to AMS. BC + strep. Rocephin, Vanco IV on board. As per nursing, family recognized the need for snf MV support and agreed on trach and PEG. I spoke to daughter Myra over he phone and reviewed goals of care with her. Myra admitted being well informed with the purpose of the procedures and concurred. I offered extra information regarding the termite helper placement post procedure . Impression * This is acutely ill patient in need for snf life support * Patient's wishes for the end of life care are not known * Family agreed on trach and PEG * Family hopes , those procedures would help patient recover and return to regular life Suggestion * Agree with trach and PEG * Plan the snf placement Palliative care will fallow up with family and give support during this difficult time for them. Thank you for consulting palliative care
--- NOTE | 2016-10-21 17:46 | CP.CCUPN ---
CCU Subjective - Physician Review Subjective (Free Text): 10/21/16 17:24 Patient seen and examined at the bedside. No acute events overnight. No acute distress. Nursing staff reports no issues. Patient remains intubated PRVC (TV 500, Rate 12, PEEP 5, FiO2 30%). No interval status change from previous examination. Today on rounds, the patient was noted to have a free water deficit. Free water flushed were ordered. GI was consulted for PEG placement evaluation, and general surgery was consulted for trach placement evaluation. The patient's prognosis remains poor. Critical Care Time Spent (in minutes): 90 CCU Objective - Vital Signs / Intake & Output Vital Signs (Last 4 hours): Vital Signs Temp Pulse Resp BP Pulse Ox 10/21/16 17:06 82 16 109/52 L 94 L 10/21/16 16:05 126/51 L 10/21/16 16:00 99.2 F 84 22 94 L 10/21/16 15:05 81 14 116/53 L 96 10/21/16 14:05 83 18 142/66 97 10/21/16 14:00 80 17 97 Intake and Output (Last 8hrs): Intake & Output 10/21/16 10/21/16 10/21/16 06:59 14:59 22:59 Intake Total 520 610 150 Output Total 295 390 110 Balance 225 220 40 Weight 101.605 kg Intake: Intake, IV Amount 200 100 Right PICC 200 100 Tube Feeding 320 360 150 Other 150 Output: Urine 295 390 110 Urethral (Santiago) 295 390 110 - Physical Exam Physical Exam Limitations: Positive for: Altered Mental Status, Other ( intubation) Head: Positive for: Atraumatic, Normocephalic Pupils: Positive for: Sluggish, Other (corneal reflex intact) Mouth: Positive for: Moist Mucous Membranes Pharnyx: Positive for: Other (weak cough and gag reflexes) Neck: Negative for: JVD, Lymphadenopathy Respiratory/Chest: Positive for: Rhonchi, Other (intubated). Negative for: Respiratory Distress Cardiovascular: Positive for: Regular Rate and Rhythm, Normal S1, S2, Peripheal Pulses Present. Negative for: Murmurs Abdomen: Positive for: Tenderness, Normal Bowel Sounds. Negative for: Distention Upper Extremity: Positive for: Normal Inspection, NORMAL PULSES, Neurovascularly Intact, Other (minimal withdrawl to painful stimuli) Lower Extremity: Positive for: Normal Inspection, NORMAL PULSES, Neurovascularly Intact, Other (minimal withdrawl to painful stimuli) Neurological: Positive for: Other (unresponsive but is opening eyes now) Skin: Positive for: Warm, Dry - Medications Active Medications: Active Medications Generic Name Dose Route Start Last Admin Trade Name Freq PRN Reason Stop Dose Admin Acetaminophen 650 mg 10/09/16 00:41 10/19/16 07:54 Tylenol 650mg/20.3ml Solution Ud NG 650 mg Q6 PRN Administration FOR TEMP 101*F OR ABOVE Artificial Tears 1 gm 10/11/16 10:30 10/21/16 09:22 Lacri-Lube OU 1 gm BID MINI Administration Enoxaparin Sodium 40 mg 10/09/16 17:30 10/21/16 09:22 Lovenox SC 40 mg DAILY MINI Administration Ceftriaxone Sodium 2 gm/ 100 mls @ 100 mls/hr 10/10/16 22:00 10/21/16 09:23 Sodium Chloride IVPB 100 mls/hr Q12 MINI Administration Vancomycin/Sodium Chloride 1 gm in 200 mls @ 133.333 mls/hr 10/19/16 18:30 05:30 Vancocin IVPB 10/24/16 18:31 133.333 mls/hr Q12H MINI Administration Insulin Aspart 0 unit 10/17/16 12:00 10/21/16 14:07 Novolog SC 2 unit Q6 MINI Administration Protocol Insulin Detemir 40 unit 10/18/16 10:08 10/21/16 11:08 Levemir SC 40 unit Q12 MINI Administration Lactulose 20 gm 10/12/16 18:00 10/21/16 09:22 Enulose NG 20 gm BID MINI Administration Metoprolol Tartrate 25 mg 10/12/16 18:00 10/21/16 09:22 Lopressor NG 25 mg BID MINI Administration Pantoprazole Sodium 40 mg 10/12/16 10:00 10/21/16 09:23 Protonix Susp PO 40 mg DAILY MINI Administration - Patient Studies Lab Studies: Microbiology Studies 10/19/16 17:30 Blood Culture - Preliminary Blood-Thru Central Line NO GROWTH AFTER 24 HOURS 10/19/16 17:30 Blood Culture - Preliminary Blood-Thru Central Line NO GROWTH AFTER 24 HOURS 10/19/16 17:30 Urine Culture - Final Urine,Santiago No Growth (<1,000 CFU/ML) Lab Studies 10/21/16 10/21/16 10/21/16 Range/Units 12:10 05:27 04:23 WBC (4.8-10.8) K/uL RBC (3.80-5.20) Mil/uL Hgb (11.0-16.0) g/dL Hct (34.0-47.0) % MCV (81.0-99.0) fL MCH (27.0-31.0) pg MCHC (33.0-37.0) g/dL RDW (11.5-14.5) % Plt Count (130-400) K/uL MPV (7.2-11.7) fL Neut % (Auto) (50.0-75.0) % Lymph % (Auto) (20.0-40.0) % [place] % (Auto) (0.0-10.0) % Eos % (Auto) (0.0-4.0) % Baso % (Auto) (0.0-2.0) % Neut # (1.8-7.0) K/uL Lymph # (1.0-4.3) K/uL [place] # (0.0-0.8) K/uL Eos # (0.0-0.7) K/uL Baso # (0.0-0.2) K/uL Puncture Site pCO2 (35-45) mm/Hg pO2 (80-100) mm/Hg HCO3 (21-28) mmol/L ABG pH (7.35-7.45) ABG Total CO2 (22-28) mmol/L ABG O2 Saturation (95-98) % ABG Base Excess (-2.0-3.0) mmol/L ABG Hemoglobin (11.7-17.4) g/dL ABG Carboxyhemoglobin (0.5-1.5) % POC ABG HHb (Measured) (0.0-5.0) % ABG Methemoglobin (0.0-3.0) % Nico Test A-a O2 Difference mm/Hg Respiratory Index Hgb O2 Saturation (95.0-98.0) % Mechanical Rate FiO2 % Tidal Volume PEEP Sodium (132-148) mmol/L Potassium (3.6-5.2) mmol/L Chloride (98-107) mmol/L Carbon Dioxide (22-30) mmol/L Anion Gap (10-20) BUN (7-17) mg/dL Creatinine (0.7-1.2) MG/DL Est GFR ( Amer) Est GFR (Non-Af Amer) POC Glucose (mg/dL) 174 H 179 H (65-110) mg/dL Random Glucose (65-105) mg/dL Calcium (8.6-10.4) mg/dl Phosphorus (2.5-4.5) mg/dL Magnesium (1.6-2.3) mg/dL Total Bilirubin (0.2-1.3) mg/dL AST (14-36) U/L ALT (9-52) U/L Alkaline Phosphatase (38-126) U/L Total Protein (6.3-8.3) g/dL Albumin (3.5-5.0) g/dL Globulin (2.2-3.9) gm/dL Albumin/Globulin Ratio (1.0-2.1) Vancomycin Trough 9.5 (5.0-10.0) ug/mL 10/21/16 10/21/16 10/21/16 Range/Units 04:23 04:23 00:00 WBC 12.2 H (4.8-10.8) K/uL RBC 4.23 (3.80-5.20) Mil/uL Hgb 12.2 (11.0-16.0) g/dL Hct 38.5 (34.0-47.0) % MCV 90.9 (81.0-99.0) fL MCH 28.7 (27.0-31.0) pg MCHC 31.6 L (33.0-37.0) g/dL RDW 13.6 (11.5-14.5) % Plt Count 265 (130-400) K/uL MPV 8.8 (7.2-11.7) fL Neut % (Auto) 75.8 H (50.0-75.0) % Lymph % (Auto) 11.6 L (20.0-40.0) % [place] % (Auto) 4.7 (0.0-10.0) % Eos % (Auto) 5.6 H (0.0-4.0) % Baso % (Auto) 2.3 H (0.0-2.0) % Neut # 9.3 H (1.8-7.0) K/uL Lymph # 1.4 (1.0-4.3) K/uL [place] # 0.6 (0.0-0.8) K/uL Eos # 0.7 (0.0-0.7) K/uL Baso # 0.3 H (0.0-0.2) K/uL Puncture Site L rad pCO2 44 (35-45) mm/Hg pO2 72 L (80-100) mm/Hg HCO3 32.0 H (21-28) mmol/L ABG pH 7.49 H (7.35-7.45) ABG Total CO2 34.9 H (22-28) mmol/L ABG O2 Saturation 96.6 (95-98) % ABG Base Excess 9.1 H (-2.0-3.0) mmol/L ABG Hemoglobin 12.0 (11.7-17.4) g/dL ABG Carboxyhemoglobin 1.5 (0.5-1.5) % POC ABG HHb (Measured) 3.3 (0.0-5.0) % ABG Methemoglobin 1.0 (0.0-3.0) % Nico Test Pos A-a O2 Difference 87.0 mm/Hg Respiratory Index 1.2 Hgb O2 Saturation 94.1 L (95.0-98.0) % Mechanical Rate 12 FiO2 30.0 % Tidal Volume 500 PEEP 5 Sodium 158 H (132-148) mmol/L Potassium 3.6 (3.6-5.2) mmol/L Chloride 119 H (98-107) mmol/L Carbon Dioxide 33 H (22-30) mmol/L Anion Gap 10 (10-20) BUN 31 H (7-17) mg/dL Creatinine 0.5 L (0.7-1.2) MG/DL Est GFR ( Amer) > 60 Est GFR (Non-Af Amer) > 60 POC Glucose (mg/dL) (65-110) mg/dL Random Glucose 186 H (65-105) mg/dL Calcium 9.4 (8.6-10.4) mg/dl Phosphorus 2.6 (2.5-4.5) mg/dL Magnesium 2.3 (1.6-2.3) mg/dL Total Bilirubin 0.7 (0.2-1.3) mg/dL AST 65 H (14-36) U/L ALT 63 H (9-52) U/L Alkaline Phosphatase 128 H (38-126) U/L Total Protein 6.7 (6.3-8.3) g/dL Albumin 3.0 L (3.5-5.0) g/dL Globulin 3.7 (2.2-3.9) gm/dL Albumin/Globulin Ratio 0.8 L (1.0-2.1) Vancomycin Trough (5.0-10.0) ug/mL 10/20/16 10/20/16 Range/Units 23:54 17:51 WBC (4.8-10.8) K/uL RBC (3.80-5.20) Mil/uL Hgb (11.0-16.0) g/dL Hct (34.0-47.0) % MCV (81.0-99.0) fL MCH (27.0-31.0) pg MCHC (33.0-37.0) g/dL RDW (11.5-14.5) % Plt Count (130-400) K/uL MPV (7.2-11.7) fL Neut % (Auto) (50.0-75.0) % Lymph % (Auto) (20.0-40.0) % [place] % (Auto) (0.0-10.0) % Eos % (Auto) (0.0-4.0) % Baso % (Auto) (0.0-2.0) % Neut # (1.8-7.0) K/uL Lymph # (1.0-4.3) K/uL [place] # (0.0-0.8) K/uL Eos # (0.0-0.7) K/uL Baso # (0.0-0.2) K/uL Puncture Site pCO2 (35-45) mm/Hg pO2 (80-100) mm/Hg HCO3 (21-28) mmol/L ABG pH (7.35-7.45) ABG Total CO2 (22-28) mmol/L ABG O2 Saturation (95-98) % ABG Base Excess (-2.0-3.0) mmol/L ABG Hemoglobin (11.7-17.4) g/dL ABG Carboxyhemoglobin (0.5-1.5) % POC ABG HHb (Measured) (0.0-5.0) % ABG Methemoglobin (0.0-3.0) % Nico Test A-a O2 Difference mm/Hg Respiratory Index Hgb O2 Saturation (95.0-98.0) % Mechanical Rate FiO2 % Tidal Volume PEEP Sodium (132-148) mmol/L Potassium (3.6-5.2) mmol/L Chloride (98-107) mmol/L Carbon Dioxide (22-30) mmol/L Anion Gap (10-20) BUN (7-17) mg/dL Creatinine (0.7-1.2) MG/DL Est GFR ( Amer) Est GFR (Non-Af Amer) POC Glucose (mg/dL) 142 H 175 H (65-110) mg/dL Random Glucose (65-105) mg/dL Calcium (8.6-10.4) mg/dl Phosphorus (2.5-4.5) mg/dL Magnesium (1.6-2.3) mg/dL Total Bilirubin (0.2-1.3) mg/dL AST (14-36) U/L ALT (9-52) U/L Alkaline Phosphatase (38-126) U/L Total Protein (6.3-8.3) g/dL Albumin (3.5-5.0) g/dL Globulin (2.2-3.9) gm/dL Albumin/Globulin Ratio (1.0-2.1) Vancomycin Trough (5.0-10.0) ug/mL Laboratory Results - last 24 hr 10/20/16 10/20/16 10/21/16 17:51 23:54 00:00 WBC RBC Hgb Hct MCV MCH MCHC RDW Plt Count MPV Neut % (Auto) Lymph % (Auto) [place] % (Auto) Eos % (Auto) Baso % (Auto) Neut # Lymph # [place] # Eos # Baso # Puncture Site L rad pCO2 44 pO2 72 L HCO3 32.0 H ABG pH 7.49 H ABG Total CO2 34.9 H ABG O2 Saturation 96.6 ABG Base Excess 9.1 H ABG Hemoglobin 12.0 ABG Carboxyhemoglobin 1.5 POC ABG HHb (Measured) 3.3 ABG Methemoglobin 1.0 Nico Test Pos A-a O2 Difference 87.0 Respiratory Index 1.2 Hgb O2 Saturation 94.1 L Mechanical Rate 12 FiO2 30.0 Tidal Volume 500 PEEP 5 Sodium Potassium Chloride Carbon Dioxide Anion Gap BUN Creatinine Est GFR ( Amer) Est GFR (Non-Af Amer) POC Glucose (mg/dL) 175 H 142 H Random Glucose Calcium Phosphorus Magnesium Total Bilirubin AST ALT Alkaline Phosphatase Total Protein Albumin Globulin Albumin/Globulin Ratio Vancomycin Trough 10/21/16 10/21/16 10/21/16 04:23 04:23 04:23 WBC 12.2 H RBC 4.23 Hgb 12.2 Hct 38.5 MCV 90.9 MCH 28.7 MCHC 31.6 L RDW 13.6 Plt Count 265 MPV 8.8 Neut % (Auto) 75.8 H Lymph % (Auto) 11.6 L [place] % (Auto) 4.7 Eos % (Auto) 5.6 H Baso % (Auto) 2.3 H Neut # 9.3 H Lymph # 1.4 [place] # 0.6 Eos # 0.7 Baso # 0.3 H Puncture Site pCO2 pO2 HCO3 ABG pH ABG Total CO2 ABG O2 Saturation ABG Base Excess ABG Hemoglobin ABG Carboxyhemoglobin POC ABG HHb (Measured) ABG Methemoglobin Nico Test A-a O2 Difference Respiratory Index Hgb O2 Saturation Mechanical Rate FiO2 Tidal Volume PEEP Sodium 158 H Potassium 3.6 Chloride 119 H Carbon Dioxide 33 H Anion Gap 10 BUN 31 H Creatinine 0.5 L Est GFR ( Amer) > 60 Est GFR (Non-Af Amer) > 60 POC Glucose (mg/dL) Random Glucose 186 H Calcium 9.4 Phosphorus 2.6 Magnesium 2.3 Total Bilirubin 0.7 AST 65 H ALT 63 H Alkaline Phosphatase 128 H Total Protein 6.7 Albumin 3.0 L Globulin 3.7 Albumin/Globulin Ratio 0.8 L Vancomycin Trough 9.5 10/21/16 10/21/16 05:27 12:10 WBC RBC Hgb Hct MCV MCH MCHC RDW Plt Count MPV Neut % (Auto) Lymph % (Auto) [place] % (Auto) Eos % (Auto) Baso % (Auto) Neut # Lymph # [place] # Eos # Baso # Puncture Site pCO2 pO2 HCO3 ABG pH ABG Total CO2 ABG O2 Saturation ABG Base Excess ABG Hemoglobin ABG Carboxyhemoglobin POC ABG HHb (Measured) ABG Methemoglobin Nico Test A-a O2 Difference Respiratory Index Hgb O2 Saturation Mechanical Rate FiO2 Tidal Volume PEEP Sodium Potassium Chloride Carbon Dioxide Anion Gap BUN Creatinine Est GFR ( Amer) Est GFR (Non-Af Amer) POC Glucose (mg/dL) 179 H 174 H Random Glucose Calcium Phosphorus Magnesium Total Bilirubin AST ALT Alkaline Phosphatase Total Protein Albumin Globulin Albumin/Globulin Ratio Vancomycin Trough Fingerstick Blood Sugar Results: 175 Review of Systems - Review of Systems Systems not reviewed;Unavailable: Intubated Critical Care Progress Note - Ventilator Checklist Head of Bed 30 Degrees: Yes PUD Prophalyxis: Yes DVT Prophylaxis: Yes - Vent Settings MODE:: PRVC TIDAL VOLUME:: 500 RESP RATE:: 12 FIO2:: 30 PEEP:: 5 - Extremities/Vascular Does the Patient have a Central Venous Catheter?: Yes Insertion Site: R PICC Does the Patient need a Central Venous Catheter?: Yes Does the Patient have a [place] Catheter?: Yes Does the Patient need a [place] Catheter?: Yes Catheter Insertion Criteria: Patient requires prolonged immobilization - Prophylaxis GI Prophylaxis GI: PPI - Prophylaxis DVT Prophylaxis DVT: Lovenox Assessment/Plan (1) Acute respiratory failure Current Visit: Yes Status: Acute (2) Bacterial meningoencephalitis Current Visit: Yes Status: Acute - Assessment and Plan (Free Text) Plan: Patient Status: No acute change. Stable Neuro: -Bacterial Meningitis -Intact brainstem reflexes -Intubated and Sedated -Dr. Moulton on case -Imaging: : 10/21/16 CT Head- Examination limited by motion. Nonspecific white matter changes and hypodensities predominantly involving kearney radiata and centrum semiovale bilaterally as above concerning for multifocal ischemia. Opacification of bilateral sphenoid sinuses. Mucosal thickening of the right frontal sinus. Mucosal thickening of the ethmoid air cells. Correlate clinically for sinusitis. Examination limited by mastoid air cells ; correlate clinically for otomastoiditis. : 10/12/16 CT Head- 1. Study is markedly limited by motion artifact. 2. Abnormal low density changes within the kearney radiata and centrum semiovale bilaterally more conspicuous than on the previous 10/09/2016. Study is concerning for multifocal ischemia. 3. Acute sinusitis involving the ethmoid, sphenoid and frontal sinuses. : 10/10/[address]- Limited study. The opacification of the distal internal carotid arteries and intracranial arteries is limited. Segmental mild- to-moderate stenosis at the distal right internal carotid arteries. Moderate diffuse atherosclerotic disease. The right middle cerebral artery is smaller than the left demonstrates diffuse irregularity. The distal right vertebral artery is smaller than the left. Pansinusitis. Complete opacification of the right frontal sinus. Focal defect seen in the posterior wall of the right frontal sinus without definite evidence of abscess formation in the intracranial frontal fossa. The possibility of infection spread into the intracranial fossa is not totally excluded in this exam. : 10/09/16 CT Head- No evidence of acute infarct. No intracranial mass or hemorrhage. Chronic microvascular white matter ischemic change. Chronic paranasal sinusitis. Nonspecific bilateral mastoid effusion. : 10/08/16 CT Head- Extensive bibasilar consolidation. No evidence of pulmonary embolism. : 10/08/16 CT Head- 1. No definite acute intracranial abnormality. Acute infarction may be CT occult within first 24 hours. If a focal deficit persists , consider followup CT or MRI for further evaluation. 2. Sinus disease. Cardiovascular: -Hemodynamically stable Pulmonary: -Gen Surg Consult (Dr. Rodriguez) for trach placement -Intubated PRVC - TV 500 / PEEP 5 / Rate 12 / FiO2 30% -Imaging : 10/21/16 CXR- No active disease. Lines and tubes unchanged. : 10/20/16 CXR- In situ ETT, tip of which lies approximately 5.65 cm above pia. NGT is present, the tip of which has not been included on this film though distal aspect does lie below EG junction. Right-sided PICC line with tip in the SVC. Bibasilar atelectatic changes are felt to be present. : 10/19/16 CXR- ETT, NGT and right-sided PICC line as above. Patchy left lower lobe atelectasis and or infiltrate. : 10/18/16 CXR- Right sided PICC line with tip SVC. Right IJ central venous line is also present the tip in the SVC as well. In situ ETT, tip of which lies approximately 4.6 cm above pia. NGT is present, the, tip of which has not been included on this film though distal aspect does lie well below EG junction. Vague patchy opacity in the left mid to lower lung field could represent developing atelectasis and or infiltrate. Suspect minor right basilar atelectasis. : 10/17/16 CXR- Moderate venous congestion. Patchy consolidative changes at both lung bases; right greater than left. Small left pleural effusion. Biapical pleural thickening with upper lobe granulomatous changes. Cardiomegaly. -ABG : 10/21/16- CO2= 44 / O2=72 / HCO3=32.0 / pH= 7.49 : 10/20/16- CO2= 45 / O2=78 / HCO3=33.1 / pH= 7.50 : 10/19/16- CO2= 43 / O2=62 / HCO3=32.1 / pH= 7.50 : 10/18/16- CO2= 44 / O2=74 / HCO3=29.6 / pH= 7.46 : 10/17/16- CO2= 46 / O2=78 / HCO3=32.1 / pH= 7.48 Gastrointestinal: -GI Consult placed for PEG tube placement evaluation -Tube feeding diabetisource @ 30ml/hr Hematology: -No issues Endocrine: -Insulin 40u SC daily -Novolin sliding scale Renal: -No issues -Monitor I&Os Musculoskeletal: -None Genitourinary: -No issues -Voiding well Infectious Disease: -Bacterial Meningitis -Dr. Long Following -Vancomycin 1g IV q12 day 3 -Ceftriaxone 2g IV q12 Day 12 GI Prophylaxis: Protonix 40mg PO daily DVT Prophylaxis: Lovenox 40mg SC Daily Case Discussed with Dr. Ariana Wilson PGY1 - Date & Time Date: 10/21/16 Time: 18:12
[2016-10-22] MEDS: (Novolog) Insulin Aspart, Recombinant 100 u/ml 10 ml vial SC SCH ×5 (00:13→23:48)
[2016-10-22 05:36] LABS: ABG ALLEN TEST POS; ABG MECHANICAL RATE 12; ATERIAL BLOOD GAS PEEP 5; DRAW SITE LR
[2016-10-22] MEDS: Vancomycin 1 gm/NS 200 ml 1 GM/200 ML BAG IVPB SCH ×2 (05:59→19:00)
[2016-10-22 06:36] LABS: BASO # 0.1 K/uL (0.0-0.2); BASO % 1.1 % (0.0-2.0); EOS # 0.3 K/uL (0.0-0.7); HEMATOCRIT 34.7 % (34.0-47.0); LYMPH # 2.8 K/uL (1.0-4.3); LYMPH % 25.9 % (20.0-40.0); MEAN CELL VOLUME 90.7 fL (81.0-99.0); MEAN CORPUSCULAR HEMOGLOBIN 29.4 pg (27.0-31.0); MEAN CORPUSCULAR HGB CONC 32.4 g/dL (33.0-37.0); MEAN PLATELET VOLUME 9.1 fL (7.2-11.7); MONO # 0.6 K/uL (0.0-0.8); MONO % 5.9 % (0.0-10.0); RED CELL DISTRIBUTION WIDTH 13.5 % (11.5-14.5)
[2016-10-22 06:49] LABS: INR 1.1
[2016-10-22 07:00] LABS: CHLORIDE 116 mmol/L (98-107); POTASSIUM 3.3 mmol/L (3.6-5.2); SODIUM 154 mmol/L (132-148)
[2016-10-22 07:02] LABS: ALB/GLOB RATIO 0.7 (1.0-2.1); ALKALINE PHOSPHATASE 126 U/L (38-126); ALT/SGPT 46 U/L (9-52); AST/SGOT 50 U/L (14-36); BILIRUBIN,TOTAL 0.8 mg/dL (0.2-1.3); BLOOD UREA NITROGEN 23 mg/dL (7-17); CARBON DIOXIDE 32 mmol/L (22-30); GFR AFRICAN-AMERICAN > 60; TOTAL PROTEIN 6.6 g/dL (6.3-8.3)
[2016-10-22 07:03] LABS: CALCIUM 9.4 mg/dl (8.6-10.4); GLUCOSE,RANDOM 95 mg/dL (65-105); MAGNESIUM 2.2 mg/dL (1.6-2.3); PHOSPHOROUS 2.8 mg/dL (2.5-4.5)
--- NOTE | 2016-10-22 07:58 | CP.PCM.PN ---
<Farhad Martinez - Last Filed: 10/22/16 09:16> Subjective - Date & Time of Evaluation Date of Evaluation: 10/22/16 Time of Evaluation: 07:10 - Subjective Subjective: PGY4 GI Fellow Progress Note Patient seen and examined bedside this morning. The patient cannot participate in history/physical exam given clinical condition. She does not respond to commands and remains intubated. No events overnight. 12 system ROS cannot be performed given clinical condition. Objective - Vital Signs/Intake and Output Vital Signs (last 24 hours): Temp Pulse Resp BP Pulse Ox 97.1 F L 80 16 143/67 100 10/22/16 04:00 10/22/16 07:05 10/22/16 07:05 10/22/16 07:05 10/22/16 07:05 Intake and Output: 10/22/16 10/22/16 06:59 18:59 Intake Total 750 0 Output Total 640 50 Balance 110 -50 - Medications Medications: Current Medications Acetaminophen (Tylenol 650mg/20.3ml Solution Ud) 650 mg NG Q6 PRN PRN Reason: FOR TEMP 101*F OR ABOVE Last Admin: 10/19/16 07:54 Dose: 650 mg Artificial Tears (Lacri-Lube) 1 gm OU BID [facility] Last Admin: 10/21/16 18:53 Dose: 1 gm Enoxaparin Sodium (Lovenox) 40 mg SC DAILY [facility] Last Admin: 10/21/16 09:22 Dose: 40 mg Ceftriaxone Sodium 2 gm/ (Sodium Chloride) 100 mls @ 100 mls/hr IVPB Q12 [facility] Last Admin: 10/21/16 21:34 Dose: 100 mls/hr Vancomycin/Sodium Chloride (Vancocin) 1 gm in 200 mls @ 133.333 mls/hr IVPB Q12H [facility] Stop: 10/24/16 18:31 Last Admin: 10/22/16 05:59 Dose: 133.333 mls/hr Potassium Chloride (Potassium Chloride 20 Meq/100 Ml) 20 meq in 100 mls @ 50 mls/hr IVPB ONCE ONE Stop: 10/22/16 09:30 Last Admin: 10/22/16 07:46 Dose: 50 mls/hr Potassium Chloride (Potassium Chloride 20 Meq/100 Ml) 20 meq in 100 mls @ 50 mls/hr IVPB ONCE ONE Stop: 10/22/16 11:29 Insulin Aspart (Novolog) 0 unit SC Q6 [facility] PRN Reason: Protocol Last Admin: 10/22/16 05:58 Dose: Not Given Insulin Detemir (Levemir) 40 unit SC Q12 [facility] Last Admin: 10/21/16 21:35 Dose: 40 unit Lactulose (Enulose) 20 gm NG BID [facility] Last Admin: 10/21/16 18:04 Dose: 20 gm Metoprolol Tartrate (Lopressor) 25 mg NG BID [facility] Last Admin: 10/21/16 18:04 Dose: 25 mg Pantoprazole Sodium (Protonix Susp) 40 mg PO DAILY [facility] Last Admin: 10/21/16 09:23 Dose: 40 mg - Labs Labs: 10/22/16 06:25 10/22/16 06:26 PT 12.6 SECONDS (9.7-12.2) H 10/22/16 06:28 INR 1.1 10/22/16 06:28 APTT 31 SECONDS (21-34) 10/22/16 06:28 - Constitutional Appears: No Acute Distress, Other (obese, intubated) - Eye Exam Pupil Exam: PERRL - ENT Exam ENT Exam: Mucous Membranes Dry - Respiratory Exam Respiratory Exam: Clear to Ausculation Bilateral. absent: Rales, Rhonchi, Wheezes - Cardiovascular Exam Cardiovascular Exam: RRR, +S1, +S2 - GI/Abdominal Exam GI & Abdominal Exam: Soft, Normal Bowel Sounds. absent: Distended, Firm, Guarding, Rigid, Tenderness, Organomegaly - Extremities Exam Extremities Exam: Normal Inspection. absent: Pedal Edema - Neurological Exam Neuro motor strength exam: Left Upper Extremity: 0, Right Upper Extremity: 0, Left Lower Extremity: 0, Right Lower Extremity: 0 Additional comments: upward plantar reflex on both feet, no purposeful movement, does not withdraw to painful stimuli - Skin Skin Exam: Dry, Warm Assessment and Plan - Assessment and Plan (Free Text) Assessment: Patient is a 61yo female with PMHx significant for asthma, DM, HTN, HLD who presented to the ED with altered mentation. The patient's son provided much of the history initially as patient required emergent intubation and could not provide history. -Bacterial meningitis -Multifocal ischemic CVA with severe encephalopathy -Respiratory failure -Dysphagia as a result of the above -Multiple electrolyte abnormalities -Obesity -DM -HTN Plan: -Discussed case with ID and neurology yesterday; no contraindications to placing PEG at this time per their services -Overall, given presentation and illness as well as persistent findings on CT head, overall prognosis is poor -Following discussion with patient's family, they opt to perform Trach/PEG and observe for clinical improvement in LTAC setting -Will need to speak with NOK for consent for PEG tube placement -The patient is scheduled for tracheostomy today <Mik Hoover - Last Filed: 10/22/16 10:34> Objective - Vital Signs/Intake and Output Vital Signs (last 24 hours): Temp Pulse Resp BP Pulse Ox 98.4 F 81 13 139/72 93 L 10/22/16 08:00 10/22/16 09:09 10/22/16 08:05 10/22/16 09:09 10/22/16 09:09 Intake and Output: 10/22/16 10/22/16 06:59 18:59 Intake Total 750 200 Output Total 640 50 Balance 110 150 - Medications Medications: Current Medications Acetaminophen (Tylenol 650mg/20.3ml Solution Ud) 650 mg NG Q6 PRN PRN Reason: FOR TEMP 101*F OR ABOVE Last Admin: 10/19/16 07:54 Dose: 650 mg Artificial Tears (Lacri-Lube) 1 gm OU BID [facility] Last Admin: 10/21/16 18:53 Dose: 1 gm Enoxaparin Sodium (Lovenox) 40 mg SC DAILY [facility] Last Admin: 10/21/16 09:22 Dose: 40 mg Ceftriaxone Sodium 2 gm/ (Sodium Chloride) 100 mls @ 100 mls/hr IVPB Q12 [facility] Last Admin: 10/21/16 21:34 Dose: 100 mls/hr Vancomycin/Sodium Chloride (Vancocin) 1 gm in 200 mls @ 133.333 mls/hr IVPB Q12H [facility] Stop: 10/24/16 18:31 Last Admin: 10/22/16 05:59 Dose: 133.333 mls/hr Potassium Chloride (Potassium Chloride 20 Meq/100 Ml) 20 meq in 100 mls @ 50 mls/hr IVPB ONCE ONE Stop: 10/22/16 11:29 Last Admin: 10/22/16 08:46 Dose: 50 mls/hr Insulin Aspart (Novolog) 0 unit SC Q6 [facility] PRN Reason: Protocol Last Admin: 10/22/16 05:58 Dose: Not Given Insulin Detemir (Levemir) 40 unit SC Q12 [facility] Last Admin: 10/21/16 21:35 Dose: 40 unit Lactulose (Enulose) 20 gm NG BID [facility] Last Admin: 10/21/16 18:04 Dose: 20 gm Metoprolol Tartrate (Lopressor) 25 mg NG BID [facility] Last Admin: 10/22/16 09:08 Dose: 25 mg Pantoprazole Sodium (Protonix Susp) 40 mg PO DAILY [facility] Last Admin: 10/21/16 09:23 Dose: 40 mg - Labs Labs: 10/22/16 06:25 10/22/16 06:26 PT 12.6 SECONDS (9.7-12.2) H 10/22/16 06:28 INR 1.1 10/22/16 06:28 APTT 31 SECONDS (21-34) 10/22/16 06:28 Attending/Attestation - Attestation I have personally seen and examined this patient.: Yes I have fully participated in the care of the patient.: Yes I have reviewed all pertinent clinical information, including history, physical exam and plan: Yes Notes (Text): 10/22/16 10:27 I have seen and examined patient with GI fellow. No acute events overnight, she remains in ICU critical care, intubated and minimally responsive. According to nursing staff, no reported abdominal pain, nausea, vomting, fever/ chills. Review of vitals from today are normal. Obesity DM / HTN Hyperlipidemia Altered mental status - bacterial meningitis, ischemic CVA Respiratory failure, s/p intubation - Surgical team has scheduled patient for tracheostomy today - Continue with OGT feeding as tolerated, monitor for residuals - Continue with antibiotic therapy as per ID - Follow up neurology recommendations - GI requested for gastrostomy placement, though it should be noted that overall patient prognosis is poor and PEG will not significantly improve patient outcome. Will need to carefully discuss with family members regarding risks/benefits of procedure and will also require ID clearance given ongoing treatment of bacterial meningitis prior to consideration of procedure.
--- NOTE | 2016-10-22 08:03 | RAD ---
Chest x-ray single frontal view History: Endotracheal tube evaluation. Comparison: 10/21/2016 Findings: Endotracheal tube extending into the mid thoracic trachea. NG tube extending into the stomach. Moderate venous congestion. Bibasilar airspace opacification. Right hilar and infrahilar consolidative changes. Biapical pleural thickening with upper lobe granulomatous changes. Cardiomegaly. Degenerative changes in the spine and shoulders. Impression: Moderate venous congestion. Bibasilar airspace opacification. Right hilar and infrahilar consolidative changes. Biapical pleural thickening with upper lobe granulomatous changes. Cardiomegaly.
[2016-10-22] MEDS ORDERED: Sodium Chloride 0.9% 1,000 ML IV ONE (09:20)
[2016-10-22] MEDS ORDERED: Midazolam 2 MG/2 ML VIAL ONE (09:32)
[2016-10-22] MEDS: Insulin Detemir 100 units/ml Vial (Levemir) SC SCH ×2 (10:00→21:26)
--- NOTE | 2016-10-22 10:06 | PCM.SURG1 ---
Surgeon's Initial Post Op Note - Surgeon's Notes Surgeon: Dr Rodriguez Manager [employer]: Dr Mckeon PGY2, Dr Rodriguez PGY2 Type of Anesthesia: General Endo, General IV Pre-Operative Diagnosis: respiratory failure Operative Findings: as above Post-Operative Diagnosis: as above Operation Performed: 1. Flexible bronchoscopy. 2. Percutaneous tracheostomy Specimen/Specimens Removed: none Estimated Blood Loss: EBL {In ML}: 10 Blood Products Given: N/A Drains Used: No Drains Post-Op Condition: Good Date of Surgery/Procedure: 10/22/16 Time of Surgery/Procedure: 10:05
[2016-10-22] MEDS: Pantoprazole 40 mg Susp UD PO SCH (10:15)
[2016-10-22] MEDS: White Petrolatum/Mineral Oil Ophth Oint(3.5 gm) OU SCH ×2 (11:00→17:09)
--- NOTE | 2016-10-22 11:06 | CP.PCM.PN ---
Subjective - Date & Time of Evaluation Date of Evaluation: 10/22/16 Time of Evaluation: 10:00 - Subjective Subjective: events noted iv rx in progress prognosis remains poor consider mri / neurology follow up Objective - Vital Signs/Intake and Output Vital Signs (last 24 hours): Temp Pulse Resp BP Pulse Ox 98.4 F 81 13 139/72 93 L 10/22/16 08:00 10/22/16 09:09 10/22/16 08:05 10/22/16 09:09 10/22/16 09:09 Intake and Output: 10/22/16 10/22/16 06:59 18:59 Intake Total 750 200 Output Total 640 50 Balance 110 150 - Medications Medications: Current Medications Acetaminophen (Tylenol 650mg/20.3ml Solution Ud) 650 mg NG Q6 PRN PRN Reason: FOR TEMP 101*F OR ABOVE Last Admin: 10/19/16 07:54 Dose: 650 mg Artificial Tears (Lacri-Lube) 1 gm OU BID [facility] Last Admin: 10/21/16 18:53 Dose: 1 gm Enoxaparin Sodium (Lovenox) 40 mg SC DAILY [facility] Last Admin: 10/21/16 09:22 Dose: 40 mg Ceftriaxone Sodium 2 gm/ (Sodium Chloride) 100 mls @ 100 mls/hr IVPB Q12 [facility] Last Admin: 10/21/16 21:34 Dose: 100 mls/hr Vancomycin/Sodium Chloride (Vancocin) 1 gm in 200 mls @ 133.333 mls/hr IVPB Q12H [facility] Stop: 10/24/16 18:31 Last Admin: 10/22/16 05:59 Dose: 133.333 mls/hr Potassium Chloride (Potassium Chloride 20 Meq/100 Ml) 20 meq in 100 mls @ 50 mls/hr IVPB ONCE ONE Stop: 10/22/16 11:29 Last Admin: 10/22/16 08:46 Dose: 50 mls/hr Insulin Aspart (Novolog) 0 unit SC Q6 [facility] PRN Reason: Protocol Last Admin: 10/22/16 05:58 Dose: Not Given Insulin Detemir (Levemir) 40 unit SC Q12 [facility] Last Admin: 10/21/16 21:35 Dose: 40 unit Lactulose (Enulose) 20 gm NG BID [facility] Last Admin: 10/21/16 18:04 Dose: 20 gm Metoprolol Tartrate (Lopressor) 25 mg NG BID [facility] Last Admin: 10/22/16 09:08 Dose: 25 mg Pantoprazole Sodium (Protonix Susp) 40 mg PO DAILY [facility] Last Admin: 10/21/16 09:23 Dose: 40 mg - Labs Labs: 10/22/16 06:25 10/22/16 06:26 PT 12.6 SECONDS (9.7-12.2) H 10/22/16 06:28 INR 1.1 10/22/16 06:28 APTT 31 SECONDS (21-34) 10/22/16 06:28 - Constitutional Appears: Non-toxic, Confused, Chronically Ill - Head Exam Head Exam: NORMOCEPHALIC - Eye Exam Eye Exam: PERRL. absent: Scleral icterus - ENT Exam ENT Exam: Mucous Membranes Dry - Neck Exam Neck Exam: absent: Lymphadenopathy - Respiratory Exam Respiratory Exam: Decreased Breath Sounds, Rhonchi - Cardiovascular Exam Cardiovascular Exam: REGULAR RHYTHM, +S1, +S2 - GI/Abdominal Exam GI & Abdominal Exam: Distended, Soft - Rectal Exam Rectal Exam: Deferred - Exam Exam: NORMAL INSPECTION - Extremities Exam Extremities Exam: absent: Calf Tenderness, Pedal Edema - Back Exam Back Exam: absent: CVA tenderness (L), CVA tenderness (R) - Neurological Exam Neurological Exam: Altered Assessment and Plan (1) Meningitis Status: Acute (2) Meningitis Status: Acute (3) Acute confusional state Status: Acute (4) Encephalopathy acute Status: Acute (5) Pneumonia Status: Acute (6) Sepsis Status: Acute
--- NOTE | 2016-10-22 12:28 | OP ---
PROCEDURE DATE: 10/22/2016 SURGEON: Dr. Yane Rodriguez. ASSISTANTS: Dr. Mckeon and Dr. Rodriguez. 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 PREOPERATIVE DIAGNOSIS: Respiratory dependency, status post meningitis. POSTOPERATIVE DIAGNOSIS: Respiratory dependency, status post meningitis. PROCEDURE: Percutaneous tracheostomy with flexible bronchoscopy. DESCRIPTION OF OPERATION: The patient on the bed was positioned with a shoulder roll to hyperextend neck. The neck was prepped and draped in the usual sterile manner. The midline of the neck was infi ltrated with 1% lidocaine with epinephrine and a longitudinal incision was made distal to the area of the cricoid cartilage. Tissues were spread until the trachea could be palpated. The needle was pas sed into the trachea and using the flexible bronchoscope via the endotracheal tube, the needle was id entified within the trachea and the Glidewire was watched as it passed through the needle and down in to the area of the tracheal bifurcation. The needle was removed. The dilators were then sterilely p assed over the guidewire, followed by a #6 Shiley tracheostomy tube and the endotracheal tube was rem kennedi. The ventilator was attached to the Shiley tube and confirmed adequate end-tidal CO2 and respir atory volumes. The Shiley tube was sutured to the neck with interrupted sutures of 0 silk. Dry ster ile dressing was applied. The patient tolerated the procedure well and transferred back to the [facility] care unit in serious but stable condition. Yane Rodriguez MD cc: [id number] TT: 10/22/2016 12:27:21 rn
[2016-10-22] MEDS: cefTRIAXone 2 GM in Sodium Chloride 0.9% 100 ML IVPB SCH ×2 (13:21→21:25)
--- NOTE | 2016-10-22 13:45 | RAD ---
PROCEDURE: CHEST RADIOGRAPH, 1 VIEW portable study 10:20 HISTORY: s/p tracheostomy COMPARISON: Multiple serial examinations preceding the most recent study: October 22, 2016. 07:02.None available. FINDINGS: LUNGS: Clear. PLEURA: No pneumothorax or pleural fluid seen. CARDIOVASCULAR: Cardiomegaly. No evidence of acute, significant cardiovascular disease. OSSEOUS STRUCTURES: No significant abnormalities. VISUALIZED UPPER ABDOMEN: Normal. OTHER FINDINGS: Satisfactory position of tracheostomy device replacing previously identified endotracheal tube. . Removal of support apparatus since the prior study: Nasogastric tube. IMPRESSION: Satisfactory position of tracheostomy device. No active pulmonary disease.
--- NOTE | 2016-10-22 16:43 | CP.CCUPN ---
<Ely Wilsons - Last Filed: 10/22/16 16:40> CCU Subjective - Physician Review Subjective (Free Text): 10/21/16 17:24 Patient seen and examined at the bedside. No acute events overnight. No acute distress. Nursing staff reports no issues. Patient remains intubated PRVC (TV 500, Rate 12, PEEP 5, FiO2 30%). No interval status change from previous examination. Today on rounds, the patient was noted to have a free water deficit. Free water flushed were ordered. GI was consulted for PEG placement evaluation, and general surgery was consulted for trach placement evaluation. The patient's prognosis remains poor. 10/22/16 16:40 Patient seen and examined at the bedside. No acute events overnight. No acute distress. Nursing staff reports no issues. Patient remains intubated PRVC (TV 500, Rate 12, PEEP 5, FiO2 30%). No interval status change from previous examination. Patient for trach today with Dr. Rodriguez. Today on rounds, the patient's persistent free water deficit was noted to be improving. The patient's potassium was replaced prior to OR. The patient's prognosis remains poor. Critical Care Time Spent (in minutes): 60 CCU Objective - Vital Signs / Intake & Output Intake and Output (Last 8hrs): Intake & Output 10/22/16 10/22/16 10/22/16 06:59 14:59 22:59 Intake Total 450 250 40 Output Total 500 460 30 Balance -50 -210 10 Weight 99.79 kg Intake: Intake, IV Amount 200 250 Right PICC 200 250 Oral 0 40 Tube Feeding 100 0 Other 150 Output: Urine 500 50 Urethral (Santiago) 500 50 Stool 410 30 Other: # Bowel Movements 0 - Physical Exam Head: Positive for: Atraumatic, Normocephalic Pupils: Positive for: Sluggish, Other (corneal reflex intact) Mouth: Positive for: Moist Mucous Membranes. Negative for: Dry, Drooling Pharnyx: Positive for: Other (weak cough and gag reflexes) Neck: Negative for: JVD, Lymphadenopathy Respiratory/Chest: Positive for: Good Air Exchange, Rhonchi, Other (intubated). Negative for: Clear to Auscultation, Respiratory Distress, Accessory Muscle Use, Wheezes, Rales Cardiovascular: Positive for: Regular Rate and Rhythm, Normal S1, S2, Peripheal Pulses Present. Negative for: Murmurs Abdomen: Positive for: Tenderness, Normal Bowel Sounds. Negative for: Distention Upper Extremity: Positive for: Normal Inspection, NORMAL PULSES, Neurovascularly Intact, Other (minimal withdrawl to painful stimuli) Lower Extremity: Positive for: Normal Inspection, NORMAL PULSES, Neurovascularly Intact, Other (minimal withdrawl to painful stimuli) Neurological: Positive for: Other (minimally responsive- opening eyes, minimal withdrawal to pain, brainstem reflexes intact) Skin: Positive for: Warm, Dry - Medications Active Medications: Active Medications Generic Name Dose Route Start Last Admin Trade Name Freq PRN Reason Stop Dose Admin Acetaminophen 650 mg 10/09/16 00:41 10/19/16 07:54 Tylenol 650mg/20.3ml Solution Ud NG 650 mg Q6 PRN Administration FOR TEMP 101*F OR ABOVE Artificial Tears 1 gm 10/11/16 10:30 10/22/16 11:00 Lacri-Lube OU 1 gm BID MINI Administration Enoxaparin Sodium 40 mg 10/09/16 17:30 10/21/16 09:22 Lovenox SC 40 mg DAILY MINI Administration Ceftriaxone Sodium 2 gm/ 100 mls @ 100 mls/hr 10/10/16 22:00 10/22/16 13:21 Sodium Chloride IVPB 100 mls/hr Q12 MINI Administration Vancomycin/Sodium Chloride 1 gm in 200 mls @ 133.333 mls/hr 10/19/16 18:30 05:59 Vancocin IVPB 10/24/16 18:31 133.333 mls/hr Q12H MINI Administration Insulin Aspart 0 unit 10/17/16 12:00 10/22/16 12:00 Novolog SC Not Given Q6 [facility] Protocol Insulin Detemir 40 unit 10/18/16 10:08 10/22/16 10:00 Levemir SC Not Given Q12 MINI Lactulose 20 gm 10/12/16 18:00 10/21/16 18:04 Enulose NG 20 gm BID MINI Administration Metoprolol Tartrate 25 mg 10/12/16 18:00 10/22/16 09:08 Lopressor NG 25 mg BID MINI Administration Pantoprazole Sodium 40 mg 10/12/16 10:00 10/22/16 10:15 Protonix Susp PO Not Given DAILY MINI - Patient Studies Lab Studies: Microbiology Studies 10/19/16 Unknown Gram Stain - Final Trachasp Sputum Culture - Final NORMAL ORAL IGLESIA 10/19/16 17:30 Blood Culture - Preliminary Blood-Thru Central Line NO GROWTH AFTER 48 HOURS 10/19/16 17:30 Blood Culture - Preliminary Blood-Thru Central Line NO GROWTH AFTER 48 HOURS Lab Studies 10/22/16 10/22/16 10/22/16 Range/Units 11:27 06:28 06:26 WBC (4.8-10.8) K/uL RBC (3.80-5.20) Mil/uL Hgb (11.0-16.0) g/dL Hct (34.0-47.0) % MCV (81.0-99.0) fL MCH (27.0-31.0) pg MCHC (33.0-37.0) g/dL RDW (11.5-14.5) % Plt Count (130-400) K/uL MPV (7.2-11.7) fL Neut % (Auto) (50.0-75.0) % Lymph % (Auto) (20.0-40.0) % Perry % (Auto) (0.0-10.0) % Eos % (Auto) (0.0-4.0) % Baso % (Auto) (0.0-2.0) % Neut # (1.8-7.0) K/uL Lymph # (1.0-4.3) K/uL Perry # (0.0-0.8) K/uL Eos # (0.0-0.7) K/uL Baso # (0.0-0.2) K/uL PT 12.6 H (9.7-12.2) SECONDS INR 1.1 APTT 31 (21-34) SECONDS Puncture Site pCO2 (35-45) mm/Hg pO2 (80-100) mm/Hg HCO3 (21-28) mmol/L ABG pH (7.35-7.45) ABG Total CO2 (22-28) mmol/L ABG O2 Saturation (95-98) % ABG Base Excess (-2.0-3.0) mmol/L Nico Test ABG Potassium (3.6-5.2) mmol/L A-a O2 Difference mm/Hg Respiratory Index Sodium 154 H (132-148) mmol/l Chloride 116 H (98-107) mmol/L Glucose (65-105) mg/dl Lactate (0.7-2.1) mmol/L Mechanical Rate FiO2 % Tidal Volume PEEP Potassium 3.3 L (3.6-5.2) mmol/L Carbon Dioxide 32 H (22-30) mmol/L Anion Gap 9 L (10-20) BUN 23 H (7-17) mg/dL Creatinine 0.4 L (0.7-1.2) MG/DL Est GFR ( Amer) > 60 Est GFR (Non-Af Amer) > 60 POC Glucose (mg/dL) 119 H (65-110) mg/dL Random Glucose 95 (65-105) mg/dL Calcium 9.4 (8.6-10.4) mg/dl Phosphorus 2.8 (2.5-4.5) mg/dL Magnesium 2.2 (1.6-2.3) mg/dL Total Bilirubin 0.8 (0.2-1.3) mg/dL AST 50 H D (14-36) U/L ALT 46 (9-52) U/L Alkaline Phosphatase 126 (38-126) U/L Total Protein 6.6 (6.3-8.3) g/dL Albumin 2.8 L (3.5-5.0) g/dL Globulin 3.8 (2.2-3.9) gm/dL Albumin/Globulin Ratio 0.7 L (1.0-2.1) Arterial Blood Potassium (3.6-5.2) mmol/L 10/22/16 10/22/16 10/22/16 Range/Units 06:25 05:36 05:29 WBC 11.0 H (4.8-10.8) K/uL RBC 3.83 (3.80-5.20) Mil/uL Hgb 11.3 (11.0-16.0) g/dL Hct 34.7 (34.0-47.0) % MCV 90.7 (81.0-99.0) fL MCH 29.4 (27.0-31.0) pg MCHC 32.4 L (33.0-37.0) g/dL RDW 13.5 (11.5-14.5) % Plt Count 232 (130-400) K/uL MPV 9.1 (7.2-11.7) fL Neut % (Auto) 64.1 (50.0-75.0) % Lymph % (Auto) 25.9 (20.0-40.0) % Perry % (Auto) 5.9 (0.0-10.0) % Eos % (Auto) 3.0 (0.0-4.0) % Baso % (Auto) 1.1 (0.0-2.0) % Neut # 7.0 (1.8-7.0) K/uL Lymph # 2.8 (1.0-4.3) K/uL Perry # 0.6 (0.0-0.8) K/uL Eos # 0.3 (0.0-0.7) K/uL Baso # 0.1 (0.0-0.2) K/uL PT (9.7-12.2) SECONDS INR APTT (21-34) SECONDS Puncture Site Lr pCO2 45 (35-45) mm/Hg pO2 78 L (80-100) mm/Hg HCO3 31.8 H (21-28) mmol/L ABG pH 7.48 H (7.35-7.45) ABG Total CO2 34.9 H (22-28) mmol/L ABG O2 Saturation 97.4 (95-98) % ABG Base Excess 8.8 H (-2.0-3.0) mmol/L Nico Test Pos ABG Potassium 3.2 L (3.6-5.2) mmol/L A-a O2 Difference 80.0 mm/Hg Respiratory Index 1.0 Sodium 158.0 H (132-148) mmol/l Chloride 128.0 H (98-107) mmol/L Glucose 97 (65-105) mg/dl Lactate 0.7 (0.7-2.1) mmol/L Mechanical Rate 12 FiO2 30.0 % Tidal Volume 500 PEEP 5 Potassium (3.6-5.2) mmol/L Carbon Dioxide (22-30) mmol/L Anion Gap (10-20) BUN (7-17) mg/dL Creatinine (0.7-1.2) MG/DL Est GFR ( Amer) Est GFR (Non-Af Amer) POC Glucose (mg/dL) 123 H (65-110) mg/dL Random Glucose (65-105) mg/dL Calcium (8.6-10.4) mg/dl Phosphorus (2.5-4.5) mg/dL Magnesium (1.6-2.3) mg/dL Total Bilirubin (0.2-1.3) mg/dL AST (14-36) U/L ALT (9-52) U/L Alkaline Phosphatase (38-126) U/L Total Protein (6.3-8.3) g/dL Albumin (3.5-5.0) g/dL Globulin (2.2-3.9) gm/dL Albumin/Globulin Ratio (1.0-2.1) Arterial Blood Potassium 3.2 L (3.6-5.2) mmol/L 10/21/16 10/21/16 Range/Units 23:33 18:08 WBC (4.8-10.8) K/uL RBC (3.80-5.20) Mil/uL Hgb (11.0-16.0) g/dL Hct (34.0-47.0) % MCV (81.0-99.0) fL MCH (27.0-31.0) pg MCHC (33.0-37.0) g/dL RDW (11.5-14.5) % Plt Count (130-400) K/uL MPV (7.2-11.7) fL Neut % (Auto) (50.0-75.0) % Lymph % (Auto) (20.0-40.0) % Perry % (Auto) (0.0-10.0) % Eos % (Auto) (0.0-4.0) % Baso % (Auto) (0.0-2.0) % Neut # (1.8-7.0) K/uL Lymph # (1.0-4.3) K/uL Perry # (0.0-0.8) K/uL Eos # (0.0-0.7) K/uL Baso # (0.0-0.2) K/uL PT (9.7-12.2) SECONDS INR APTT (21-34) SECONDS Puncture Site pCO2 (35-45) mm/Hg pO2 (80-100) mm/Hg HCO3 (21-28) mmol/L ABG pH (7.35-7.45) ABG Total CO2 (22-28) mmol/L ABG O2 Saturation (95-98) % ABG Base Excess (-2.0-3.0) mmol/L Nico Test ABG Potassium (3.6-5.2) mmol/L A-a O2 Difference mm/Hg Respiratory Index Sodium (132-148) mmol/l Chloride (98-107) mmol/L Glucose (65-105) mg/dl Lactate (0.7-2.1) mmol/L Mechanical Rate FiO2 % Tidal Volume PEEP Potassium (3.6-5.2) mmol/L Carbon Dioxide (22-30) mmol/L Anion Gap (10-20) BUN (7-17) mg/dL Creatinine (0.7-1.2) MG/DL Est GFR ( Amer) Est GFR (Non-Af Amer) POC Glucose (mg/dL) 146 H 249 H (65-110) mg/dL Random Glucose (65-105) mg/dL Calcium (8.6-10.4) mg/dl Phosphorus (2.5-4.5) mg/dL Magnesium (1.6-2.3) mg/dL Total Bilirubin (0.2-1.3) mg/dL AST (14-36) U/L ALT (9-52) U/L Alkaline Phosphatase (38-126) U/L Total Protein (6.3-8.3) g/dL Albumin (3.5-5.0) g/dL Globulin (2.2-3.9) gm/dL Albumin/Globulin Ratio (1.0-2.1) Arterial Blood Potassium (3.6-5.2) mmol/L Laboratory Results - last 24 hr 10/21/16 10/21/16 10/22/16 18:08 23:33 05:29 WBC RBC Hgb Hct MCV MCH MCHC RDW Plt Count MPV Neut % (Auto) Lymph % (Auto) Perry % (Auto) Eos % (Auto) Baso % (Auto) Neut # Lymph # Perry # Eos # Baso # PT INR APTT Puncture Site Lr pCO2 45 pO2 78 L HCO3 31.8 H ABG pH 7.48 H ABG Total CO2 34.9 H ABG O2 Saturation 97.4 ABG Base Excess 8.8 H Nico Test Pos ABG Potassium 3.2 L A-a O2 Difference 80.0 Respiratory Index 1.0 Sodium 158.0 H Chloride 128.0 H Glucose 97 Lactate 0.7 Mechanical Rate 12 FiO2 30.0 Tidal Volume 500 PEEP 5 Potassium Carbon Dioxide Anion Gap BUN Creatinine Est GFR ( Amer) Est GFR (Non-Af Amer) POC Glucose (mg/dL) 249 H 146 H Random Glucose Calcium Phosphorus Magnesium Total Bilirubin AST ALT Alkaline Phosphatase Total Protein Albumin Globulin Albumin/Globulin Ratio Arterial Blood Potassium 3.2 L 10/22/16 10/22/16 10/22/16 05:36 06:25 06:26 WBC 11.0 H RBC 3.83 Hgb 11.3 Hct 34.7 MCV 90.7 MCH 29.4 MCHC 32.4 L RDW 13.5 Plt Count 232 MPV 9.1 Neut % (Auto) 64.1 Lymph % (Auto) 25.9 Perry % (Auto) 5.9 Eos % (Auto) 3.0 Baso % (Auto) 1.1 Neut # 7.0 Lymph # 2.8 Perry # 0.6 Eos # 0.3 Baso # 0.1 PT INR APTT Puncture Site pCO2 pO2 HCO3 ABG pH ABG Total CO2 ABG O2 Saturation ABG Base Excess Nico Test ABG Potassium A-a O2 Difference Respiratory Index Sodium 154 H Chloride 116 H Glucose Lactate Mechanical Rate FiO2 Tidal Volume PEEP Potassium 3.3 L Carbon Dioxide 32 H Anion Gap 9 L BUN 23 H Creatinine 0.4 L Est GFR ( Amer) > 60 Est GFR (Non-Af Amer) > 60 POC Glucose (mg/dL) 123 H Random Glucose 95 Calcium 9.4 Phosphorus 2.8 Magnesium 2.2 Total Bilirubin 0.8 AST 50 H D ALT 46 Alkaline Phosphatase 126 Total Protein 6.6 Albumin 2.8 L Globulin 3.8 Albumin/Globulin Ratio 0.7 L Arterial Blood Potassium 10/22/16 10/22/16 06:28 11:27 WBC RBC Hgb Hct MCV MCH MCHC RDW Plt Count MPV Neut % (Auto) Lymph % (Auto) Perry % (Auto) Eos % (Auto) Baso % (Auto) Neut # Lymph # Perry # Eos # Baso # PT 12.6 H INR 1.1 APTT 31 Puncture Site pCO2 pO2 HCO3 ABG pH ABG Total CO2 ABG O2 Saturation ABG Base Excess Nico Test ABG Potassium A-a O2 Difference Respiratory Index Sodium Chloride Glucose Lactate Mechanical Rate FiO2 Tidal Volume PEEP Potassium Carbon Dioxide Anion Gap BUN Creatinine Est GFR ( Amer) Est GFR (Non-Af Amer) POC Glucose (mg/dL) 119 H Random Glucose Calcium Phosphorus Magnesium Total Bilirubin AST ALT Alkaline Phosphatase Total Protein Albumin Globulin Albumin/Globulin Ratio Arterial Blood Potassium Fingerstick Blood Sugar Results: 123 Review of Systems - Review of Systems Systems not reviewed;Unavailable: Intubated Critical Care Progress Note - Ventilator Checklist Head of Bed 30 Degrees: Yes PUD Prophalyxis: Yes DVT Prophylaxis: Yes - Vent Settings MODE:: PRVC TIDAL VOLUME:: 500 RESP RATE:: 12 FIO2:: 50 PEEP:: 5 - Extremities/Vascular Does the Patient have a Central Venous Catheter?: Yes Insertion Site: R PICC Does the Patient need a Central Venous Catheter?: Yes Does the Patient have a Santiago Catheter?: Yes Does the Patient need a Santiago Catheter?: Yes Catheter Insertion Criteria: Patient requires prolonged immobilization - Prophylaxis GI Prophylaxis GI: PPI - Prophylaxis DVT Prophylaxis DVT: Lovenox Assessment/Plan (1) Acute respiratory failure Current Visit: Yes Status: Acute (2) Bacterial meningoencephalitis Current Visit: Yes Status: Acute - Assessment and Plan (Free Text) Plan: Patient Status: No acute change. Stable s/p trach with Dr. Rodriguez Neuro: -Bacterial Meningitis -Intact brainstem reflexes- weak -Intubated and Sedated -Dr. Moulton on case -Imaging: : 10/21/16 CT Head- Examination limited by motion. Nonspecific white matter changes and hypodensities predominantly involving kearney radiata and centrum semiovale bilaterally as above concerning for multifocal ischemia. Opacification of bilateral sphenoid sinuses. Mucosal thickening of the right frontal sinus. Mucosal thickening of the ethmoid air cells. Correlate clinically for sinusitis. Examination limited by mastoid air cells ; correlate clinically for otomastoiditis. : 10/12/16 CT Head- 1. Study is markedly limited by motion artifact. 2. Abnormal low density changes within the kearney radiata and centrum semiovale bilaterally more conspicuous than on the previous 10/09/2016. Study is concerning for multifocal ischemia. 3. Acute sinusitis involving the ethmoid, sphenoid and frontal sinuses. : 10/10/[address]- Limited study. The opacification of the distal internal carotid arteries and intracranial arteries is limited. Segmental mild- to-moderate stenosis at the distal right internal carotid arteries. Moderate diffuse atherosclerotic disease. The right middle cerebral artery is smaller than the left demonstrates diffuse irregularity. The distal right vertebral artery is smaller than the left. Pansinusitis. Complete opacification of the right frontal sinus. Focal defect seen in the posterior wall of the right frontal sinus without definite evidence of abscess formation in the intracranial frontal fossa. The possibility of infection spread into the intracranial fossa is not totally excluded in this exam. : 10/09/16 CT Head- No evidence of acute infarct. No intracranial mass or hemorrhage. Chronic microvascular white matter ischemic change. Chronic paranasal sinusitis. Nonspecific bilateral mastoid effusion. : 10/08/16 CT Head- Extensive bibasilar consolidation. No evidence of pulmonary embolism. : 10/08/16 CT Head- 1. No definite acute intracranial abnormality. Acute infarction may be CT occult within first 24 hours. If a focal deficit persists , consider followup CT or MRI for further evaluation. 2. Sinus disease. Cardiovascular: -Hemodynamically stable Pulmonary: -s/p trach placement with Dr. Rodriguez -Intubated PRVC - TV 500 / PEEP 5 / Rate 12 / FiO2 30% -Imaging : 10/22/16 CXR- Satisfactory position of tracheostomy device. No active pulmonary disease. : 10/22/16 CXR- Moderate venous congestion. Bibasilar airspace opacification. Right hilar and infrahilar consolidative changes. Biapical pleural thickening with upper lobe granulomatous changes. Cardiomegaly. : 10/21/16 CXR- No active disease. Lines and tubes unchanged. : 10/20/16 CXR- In situ ETT, tip of which lies approximately 5.65 cm above pia. NGT is present, the tip of which has not been included on this film though distal aspect does lie below EG junction. Right-sided PICC line with tip in the SVC. Bibasilar atelectatic changes are felt to be present. : 10/19/16 CXR- ETT, NGT and right-sided PICC line as above. Patchy left lower lobe atelectasis and or infiltrate. : 10/18/16 CXR- Right sided PICC line with tip SVC. Right IJ central venous line is also present the tip in the SVC as well. In situ ETT, tip of which lies approximately 4.6 cm above pia. NGT is present, the, tip of which has not been included on this film though distal aspect does lie well below EG junction. Vague patchy opacity in the left mid to lower lung field could represent developing atelectasis and or infiltrate. Suspect minor right basilar atelectasis. : 10/17/16 CXR- Moderate venous congestion. Patchy consolidative changes at both lung bases; right greater than left. Small left pleural effusion. Biapical pleural thickening with upper lobe granulomatous changes. Cardiomegaly. -ABG : 10/22/16- CO2= 45 / O2=78 / HCO3=31.8 / pH= 7.48 : 10/21/16- CO2= 44 / O2=72 / HCO3=32.0 / pH= 7.49 : 10/20/16- CO2= 45 / O2=78 / HCO3=33.1 / pH= 7.50 : 10/19/16- CO2= 43 / O2=62 / HCO3=32.1 / pH= 7.50 : 10/18/16- CO2= 44 / O2=74 / HCO3=29.6 / pH= 7.46 : 10/17/16- CO2= 46 / O2=78 / HCO3=32.1 / pH= 7.48 Gastrointestinal: -GI Consult placed for PEG tube placement evaluation - for PEG tomorrow - NGT removed - maintenance fluids (D5 @ 125ml/hr) -Tube feeding diabetisource @ 30ml/hr Hematology: -No issues Endocrine: -Insulin 40u SC daily -Novolin sliding scale Renal: -No issues -Monitor I&Os Musculoskeletal: -None Genitourinary: -No issues -Voiding well Infectious Disease: -Bacterial Meningitis -Dr. Long Following -Vancomycin 1g IV q12 day 4 -Ceftriaxone 2g IV q12 Day 13 GI Prophylaxis: Protonix 40mg PO daily DVT Prophylaxis: Lovenox 40mg SC Daily Case Discussed with Dr. Yohan Wilson PGY1 - Date & Time Date: 10/22/16 Time: 17:27 <Matteo Almanzar - Last Filed: 10/22/16 18:09> CCU Subjective - Physician Review Critical Care Time Spent (in minutes): 30 CCU Objective - Vital Signs / Intake & Output Vital Signs (Last 4 hours): Vital Signs Temp Pulse Resp BP Pulse Ox 10/22/16 16:05 99 H 19 120/55 L 95 10/22/16 16:00 100.2 F H 98 H 16 120/55 L 94 L 10/22/16 15:05 100 H 14 107/53 L 95 10/22/16 15:00 100 H 14 96 Intake and Output (Last 8hrs): Intake & Output 10/22/16 10/22/16 10/22/16 06:59 14:59 22:59 Intake Total 450 250 125 Output Total 500 460 80 Balance -50 -210 45 Weight 220 lb Intake: Intake, IV Amount 200 250 125 Right PICC 200 250 125 Oral 0 0 Tube Feeding 100 0 Other 150 Output: Urine 500 50 25 Urethral (Santiago) 500 50 25 Stool 410 55 Other: # Bowel Movements 0 - Medications Active Medications: Active Medications Generic Name Dose Route Start Last Admin Trade Name Freq PRN Reason Stop Dose Admin Acetaminophen 650 mg 10/09/16 00:41 10/19/16 07:54 Tylenol 650mg/20.3ml Solution Ud NG 650 mg Q6 PRN Administration FOR TEMP 101*F OR ABOVE Artificial Tears 1 gm 10/11/16 10:30 10/22/16 17:09 Lacri-Lube OU 1 gm BID MINI Administration Enoxaparin Sodium 40 mg 10/09/16 17:30 10/21/16 09:22 Lovenox SC 40 mg DAILY MINI Administration Ceftriaxone Sodium 2 gm/ 100 mls @ 100 mls/hr 10/10/16 22:00 10/22/16 13:21 Sodium Chloride IVPB 100 mls/hr Q12 MINI Administration Vancomycin/Sodium Chloride 1 gm in 200 mls @ 133.333 mls/hr 10/19/16 18:30 05:59 Vancocin IVPB 10/24/16 18:31 133.333 mls/hr Q12H MINI Administration Dextrose 1,000 mls @ 125 mls/hr 10/22/16 17:00 10/22/16 17:04 Dextrose 5% In Water 1000 Ml IV 10/23/16 08:59 125 mls/hr .Q8H MINI Administration Insulin Aspart 0 unit 10/17/16 12:00 10/22/16 12:00 Novolog SC Not Given Q6 [facility] Protocol Insulin Detemir 40 unit 10/18/16 10:08 10/22/16 10:00 Levemir SC Not Given Q12 [facility] Lactulose 20 gm 10/12/16 18:00 10/22/16 11:00 Enulose NG Not Given BID [facility] Metoprolol Tartrate 5 mg 10/22/16 18:00 10/22/16 18:00 Lopressor IVP 5 mg BID [facility] Administration Pantoprazole Sodium 40 mg 10/23/16 10:00 Protonix Inj IVP DAILY [facility] - Patient Studies Lab Studies: Microbiology Studies 10/19/16 17:30 Blood Culture - Preliminary Blood-Thru Central Line NO GROWTH AFTER 3 DAYS 10/19/16 17:30 Blood Culture - Preliminary Blood-Thru Central Line NO GROWTH AFTER 3 DAYS 10/19/16 Unknown Gram Stain - Final Trachasp Sputum Culture - Final NORMAL ORAL IGLESIA Lab Studies 10/22/16 10/22/16 10/22/16 Range/Units 11:27 06:28 06:26 WBC (4.8-10.8) K/uL RBC (3.80-5.20) Mil/uL Hgb (11.0-16.0) g/dL Hct (34.0-47.0) % MCV (81.0-99.0) fL MCH (27.0-31.0) pg MCHC (33.0-37.0) g/dL RDW (11.5-14.5) % Plt Count (130-400) K/uL MPV (7.2-11.7) fL Neut % (Auto) (50.0-75.0) % Lymph % (Auto) (20.0-40.0) % Perry % (Auto) (0.0-10.0) % Eos % (Auto) (0.0-4.0) % Baso % (Auto) (0.0-2.0) % Neut # (1.8-7.0) K/uL Lymph # (1.0-4.3) K/uL Perry # (0.0-0.8) K/uL Eos # (0.0-0.7) K/uL Baso # (0.0-0.2) K/uL PT 12.6 H (9.7-12.2) SECONDS INR 1.1 APTT 31 (21-34) SECONDS Puncture Site pCO2 (35-45) mm/Hg pO2 (80-100) mm/Hg HCO3 (21-28) mmol/L ABG pH (7.35-7.45) ABG Total CO2 (22-28) mmol/L ABG O2 Saturation (95-98) % ABG Base Excess (-2.0-3.0) mmol/L Nico Test ABG Potassium (3.6-5.2) mmol/L A-a O2 Difference mm/Hg Respiratory Index Sodium 154 H (132-148) mmol/l Chloride 116 H (98-107) mmol/L Glucose (65-105) mg/dl Lactate (0.7-2.1) mmol/L Mechanical Rate FiO2 % Tidal Volume PEEP Potassium 3.3 L (3.6-5.2) mmol/L Carbon Dioxide 32 H (22-30) mmol/L Anion Gap 9 L (10-20) BUN 23 H (7-17) mg/dL Creatinine 0.4 L (0.7-1.2) MG/DL Est GFR ( Amer) > 60 Est GFR (Non-Af Amer) > 60 POC Glucose (mg/dL) 119 H (65-110) mg/dL Random Glucose 95 (65-105) mg/dL Calcium 9.4 (8.6-10.4) mg/dl Phosphorus 2.8 (2.5-4.5) mg/dL Magnesium 2.2 (1.6-2.3) mg/dL Total Bilirubin 0.8 (0.2-1.3) mg/dL AST 50 H D (14-36) U/L ALT 46 (9-52) U/L Alkaline Phosphatase 126 (38-126) U/L Total Protein 6.6 (6.3-8.3) g/dL Albumin 2.8 L (3.5-5.0) g/dL Globulin 3.8 (2.2-3.9) gm/dL Albumin/Globulin Ratio 0.7 L (1.0-2.1) Arterial Blood Potassium (3.6-5.2) mmol/L 10/22/16 10/22/16 10/22/16 Range/Units 06:25 05:36 05:29 WBC 11.0 H (4.8-10.8) K/uL RBC 3.83 (3.80-5.20) Mil/uL Hgb 11.3 (11.0-16.0) g/dL Hct 34.7 (34.0-47.0) % MCV 90.7 (81.0-99.0) fL MCH 29.4 (27.0-31.0) pg MCHC 32.4 L (33.0-37.0) g/dL RDW 13.5 (11.5-14.5) % Plt Count 232 (130-400) K/uL MPV 9.1 (7.2-11.7) fL Neut % (Auto) 64.1 (50.0-75.0) % Lymph % (Auto) 25.9 (20.0-40.0) % Perry % (Auto) 5.9 (0.0-10.0) % Eos % (Auto) 3.0 (0.0-4.0) % Baso % (Auto) 1.1 (0.0-2.0) % Neut # 7.0 (1.8-7.0) K/uL Lymph # 2.8 (1.0-4.3) K/uL Perry # 0.6 (0.0-0.8) K/uL Eos # 0.3 (0.0-0.7) K/uL Baso # 0.1 (0.0-0.2) K/uL PT (9.7-12.2) SECONDS INR APTT (21-34) SECONDS Puncture Site Lr pCO2 45 (35-45) mm/Hg pO2 78 L (80-100) mm/Hg HCO3 31.8 H (21-28) mmol/L ABG pH 7.48 H (7.35-7.45) ABG Total CO2 34.9 H (22-28) mmol/L ABG O2 Saturation 97.4 (95-98) % ABG Base Excess 8.8 H (-2.0-3.0) mmol/L Nico Test Pos ABG Potassium 3.2 L (3.6-5.2) mmol/L A-a O2 Difference 80.0 mm/Hg Respiratory Index 1.0 Sodium 158.0 H (132-148) mmol/l Chloride 128.0 H (98-107) mmol/L Glucose 97 (65-105) mg/dl Lactate 0.7 (0.7-2.1) mmol/L Mechanical Rate 12 FiO2 30.0 % Tidal Volume 500 PEEP 5 Potassium (3.6-5.2) mmol/L Carbon Dioxide (22-30) mmol/L Anion Gap (10-20) BUN (7-17) mg/dL Creatinine (0.7-1.2) MG/DL Est GFR ( Amer) Est GFR (Non-Af Amer) POC Glucose (mg/dL) 123 H (65-110) mg/dL Random Glucose (65-105) mg/dL Calcium (8.6-10.4) mg/dl Phosphorus (2.5-4.5) mg/dL Magnesium (1.6-2.3) mg/dL Total Bilirubin (0.2-1.3) mg/dL AST (14-36) U/L ALT (9-52) U/L Alkaline Phosphatase (38-126) U/L Total Protein (6.3-8.3) g/dL Albumin (3.5-5.0) g/dL Globulin (2.2-3.9) gm/dL Albumin/Globulin Ratio (1.0-2.1) Arterial Blood Potassium 3.2 L (3.6-5.2) mmol/L 10/21/16 10/21/16 Range/Units 23:33 18:08 WBC (4.8-10.8) K/uL RBC (3.80-5.20) Mil/uL Hgb (11.0-16.0) g/dL Hct (34.0-47.0) % MCV (81.0-99.0) fL MCH (27.0-31.0) pg MCHC (33.0-37.0) g/dL RDW (11.5-14.5) % Plt Count (130-400) K/uL MPV (7.2-11.7) fL Neut % (Auto) (50.0-75.0) % Lymph % (Auto) (20.0-40.0) % Perry % (Auto) (0.0-10.0) % Eos % (Auto) (0.0-4.0) % Baso % (Auto) (0.0-2.0) % Neut # (1.8-7.0) K/uL Lymph # (1.0-4.3) K/uL Perry # (0.0-0.8) K/uL Eos # (0.0-0.7) K/uL Baso # (0.0-0.2) K/uL PT (9.7-12.2) SECONDS INR APTT (21-34) SECONDS Puncture Site pCO2 (35-45) mm/Hg pO2 (80-100) mm/Hg HCO3 (21-28) mmol/L ABG pH (7.35-7.45) ABG Total CO2 (22-28) mmol/L ABG O2 Saturation (95-98) % ABG Base Excess (-2.0-3.0) mmol/L Nico Test ABG Potassium (3.6-5.2) mmol/L A-a O2 Difference mm/Hg Respiratory Index Sodium (132-148) mmol/l Chloride (98-107) mmol/L Glucose (65-105) mg/dl Lactate (0.7-2.1) mmol/L Mechanical Rate FiO2 % Tidal Volume PEEP Potassium (3.6-5.2) mmol/L Carbon Dioxide (22-30) mmol/L Anion Gap (10-20) BUN (7-17) mg/dL Creatinine (0.7-1.2) MG/DL Est GFR ( Amer) Est GFR (Non-Af Amer) POC Glucose (mg/dL) 146 H 249 H (65-110) mg/dL Random Glucose (65-105) mg/dL Calcium (8.6-10.4) mg/dl Phosphorus (2.5-4.5) mg/dL Magnesium (1.6-2.3) mg/dL Total Bilirubin (0.2-1.3) mg/dL AST (14-36) U/L ALT (9-52) U/L Alkaline Phosphatase (38-126) U/L Total Protein (6.3-8.3) g/dL Albumin (3.5-5.0) g/dL Globulin (2.2-3.9) gm/dL Albumin/Globulin Ratio (1.0-2.1) Arterial Blood Potassium (3.6-5.2) mmol/L Laboratory Results - last 24 hr 10/21/16 10/21/16 10/22/16 18:08 23:33 05:29 WBC RBC Hgb Hct MCV MCH MCHC RDW Plt Count MPV Neut % (Auto) Lymph % (Auto) Perry % (Auto) Eos % (Auto) Baso % (Auto) Neut # Lymph # Perry # Eos # Baso # PT INR APTT Puncture Site Lr pCO2 45 pO2 78 L HCO3 31.8 H ABG pH 7.48 H ABG Total CO2 34.9 H ABG O2 Saturation 97.4 ABG Base Excess 8.8 H Nico Test Pos ABG Potassium 3.2 L A-a O2 Difference 80.0 Respiratory Index 1.0 Sodium 158.0 H Chloride 128.0 H Glucose 97 Lactate 0.7 Mechanical Rate 12 FiO2 30.0 Tidal Volume 500 PEEP 5 Potassium Carbon Dioxide Anion Gap BUN Creatinine Est GFR ( Amer) Est GFR (Non-Af Amer) POC Glucose (mg/dL) 249 H 146 H Random Glucose Calcium Phosphorus Magnesium Total Bilirubin AST ALT Alkaline Phosphatase Total Protein Albumin Globulin Albumin/Globulin Ratio Arterial Blood Potassium 3.2 L 10/22/16 10/22/16 10/22/16 05:36 06:25 06:26 WBC 11.0 H RBC 3.83 Hgb 11.3 Hct 34.7 MCV 90.7 MCH 29.4 MCHC 32.4 L RDW 13.5 Plt Count 232 MPV 9.1 Neut % (Auto) 64.1 Lymph % (Auto) 25.9 Perry % (Auto) 5.9 Eos % (Auto) 3.0 Baso % (Auto) 1.1 Neut # 7.0 Lymph # 2.8 Perry # 0.6 Eos # 0.3 Baso # 0.1 PT INR APTT Puncture Site pCO2 pO2 HCO3 ABG pH ABG Total CO2 ABG O2 Saturation ABG Base Excess Nico Test ABG Potassium A-a O2 Difference Respiratory Index Sodium 154 H Chloride 116 H Glucose Lactate Mechanical Rate FiO2 Tidal Volume PEEP Potassium 3.3 L Carbon Dioxide 32 H Anion Gap 9 L BUN 23 H Creatinine 0.4 L Est GFR ( Amer) > 60 Est GFR (Non-Af Amer) > 60 POC Glucose (mg/dL) 123 H Random Glucose 95 Calcium 9.4 Phosphorus 2.8 Magnesium 2.2 Total Bilirubin 0.8 AST 50 H D ALT 46 Alkaline Phosphatase 126 Total Protein 6.6 Albumin 2.8 L Globulin 3.8 Albumin/Globulin Ratio 0.7 L Arterial Blood Potassium 10/22/16 10/22/16 06:28 11:27 WBC RBC Hgb Hct MCV MCH MCHC RDW Plt Count MPV Neut % (Auto) Lymph % (Auto) Perry % (Auto) Eos % (Auto) Baso % (Auto) Neut # Lymph # Perry # Eos # Baso # PT 12.6 H INR 1.1 APTT 31 Puncture Site pCO2 pO2 HCO3 ABG pH ABG Total CO2 ABG O2 Saturation ABG Base Excess Nico Test ABG Potassium A-a O2 Difference Respiratory Index Sodium Chloride Glucose Lactate Mechanical Rate FiO2 Tidal Volume PEEP Potassium Carbon Dioxide Anion Gap BUN Creatinine Est GFR ( Amer) Est GFR (Non-Af Amer) POC Glucose (mg/dL) 119 H Random Glucose Calcium Phosphorus Magnesium Total Bilirubin AST ALT Alkaline Phosphatase Total Protein Albumin Globulin Albumin/Globulin Ratio Arterial Blood Potassium Critical Care Progress Note - Nutrition Nutrition: Nutrition Category Date Time Status NPO Diet [DIET] Diets 10/23/16 Breakfast Active Attending/Attestation - Attestation I have personally seen and examined this patient.: Yes I have fully participated in the care of the patient.: Yes I have reviewed all pertinent clinical information: Yes Notes (Text): 10/22/16 18:07 Patient seen and examined in the intensive care unit. Case discussed with house staff in the morning rounds. Status post tracheostomy today No change in mental status Patient seen by neurology today Possible MRI tomorrow Continue antibiotics as per infectious disease Spoke with family at length
[2016-10-22] MEDS: Metoprolol 1 mg/ml Inj IVP SCH (18:00)
[2016-10-23 05:44] LABS: ABG ALLEN TEST POS; ABG MECHANICAL RATE 12; ARTERIAL BLOOD HGB O2 SAT 96.3 % (95.0-98.0); ATERIAL BLOOD GAS PEEP 5; CARBOXYHEMOGLOBIN 1.4 % (0.5-1.5); DRAW SITE LR; HHB 1.3 % (0.0-5.0)
[2016-10-23] MEDS: Vancomycin 1 gm/NS 200 ml 1 GM/200 ML BAG IVPB SCH ×2 (05:46→17:32)
[2016-10-23] MEDS: (Novolog) Insulin Aspart, Recombinant 100 u/ml 10 ml vial SC SCH ×3 (05:48→18:00)
[2016-10-23 06:28] LABS: BASO # 0.1 K/uL (0.0-0.2); BASO % 0.9 % (0.0-2.0); EOS # 0.3 K/uL (0.0-0.7); EOS % 2.7 % (0.0-4.0); HEMATOCRIT 32.6 % (34.0-47.0); LYMPH # 2.2 K/uL (1.0-4.3); LYMPH % 22.1 % (20.0-40.0); MEAN CELL VOLUME 90.8 fL (81.0-99.0); MEAN CORPUSCULAR HEMOGLOBIN 29.6 pg (27.0-31.0); MEAN CORPUSCULAR HGB CONC 32.6 g/dL (33.0-37.0); MEAN PLATELET VOLUME 9.2 fL (7.2-11.7); MONO # 0.6 K/uL (0.0-0.8); MONO % 5.7 % (0.0-10.0); RED CELL DISTRIBUTION WIDTH 13.5 % (11.5-14.5); WHITE BLOOD COUNT 9.8 K/uL (4.8-10.8)
[2016-10-23 06:49] LABS: CHLORIDE 110 mmol/L (98-107); POTASSIUM 3.6 mmol/L (3.6-5.2); SODIUM 147 mmol/L (132-148)
[2016-10-23 06:51] LABS: ALB/GLOB RATIO 0.8 (1.0-2.1); ALKALINE PHOSPHATASE 120 U/L (38-126); ALT/SGPT 42 U/L (9-52); AST/SGOT 48 U/L (14-36); BILIRUBIN,TOTAL 0.9 mg/dL (0.2-1.3); BLOOD UREA NITROGEN 16 mg/dL (7-17); CARBON DIOXIDE 30 mmol/L (22-30); GFR AFRICAN-AMERICAN > 60; GLUCOSE,RANDOM 247 mg/dL (65-105); TOTAL PROTEIN 6.3 g/dL (6.3-8.3)
[2016-10-23 06:52] LABS: CALCIUM 9.1 mg/dl (8.6-10.4); MAGNESIUM 1.9 mg/dL (1.6-2.3); PHOSPHOROUS 2.5 mg/dL (2.5-4.5)
[2016-10-23] MEDS ORDERED: Magnesium Sulfate 1 gm in D5W 1 GM/100 ML BAG IVPB ONE (08:00)
--- NOTE | 2016-10-23 08:48 | RAD ---
Chest x-ray single frontal view History: Vented. Comparison: 10/22/2016 Findings: Tracheostomy tube in place. Moderate venous congestion. Patchy consolidative markings at the right lung base may represent underlying infiltrate and or atelectasis. Milder patchy increased markings at the left lung base. Bilateral hilar prominence. Mild cardiomegaly. Degenerative changes in the spine and shoulders. Impression: Moderate venous congestion. Patchy consolidative markings at the right lung base may represent underlying infiltrate and or atelectasis. Milder patchy increased markings at the left lung base.
[2016-10-23] MEDS: Metoprolol 1 mg/ml Inj IVP SCH ×2 (09:10→17:14)
[2016-10-23] MEDS: Insulin Detemir 100 units/ml Vial (Levemir) SC SCH ×2 (10:03→21:39)
[2016-10-23] MEDS: White Petrolatum/Mineral Oil Ophth Oint(3.5 gm) OU SCH ×2 (10:14→17:14)
--- NOTE | 2016-10-23 11:14 | CP.CCUPN ---
<Barak Wilson - Last Filed: 10/23/16 11:11> CCU Subjective - Physician Review Subjective (Free Text): 10/21/16 17:24 Patient seen and examined at the bedside. No acute events overnight. No acute distress. Nursing staff reports no issues. Patient remains intubated PRVC (TV 500, Rate 12, PEEP 5, FiO2 30%). No interval status change from previous examination. Today on rounds, the patient was noted to have a free water deficit. Free water flushed were ordered. GI was consulted for PEG placement evaluation, and general surgery was consulted for trach placement evaluation. The patient's prognosis remains poor. 10/22/16 16:40 Patient seen and examined at the bedside. No acute events overnight. No acute distress. Nursing staff reports no issues. Patient remains intubated PRVC (TV 500, Rate 12, PEEP 5, FiO2 30%). No interval status change from previous examination. Patient for trach today with Dr. Rodriguez. Today on rounds, the patient's persistent free water deficit was noted to be improving. The patient's potassium was replaced prior to OR. The patient's prognosis remains poor. 10/23/16 11:11 Patient seen and examined at the bedside. No acute events overnight. No acute distress. Nursing staff reports no issues. Patient is POD #1 s/p trach placement with Dr. Rodriguez. The patient may possibly have a PEG tube placed by GI pending family discussion and consent. The patient is NPO in preparation for the procedure. The patient remains intubated this morning. Today on rounds, the patient was switched from PRVC to CPAP (15/5 at a rate of 12). The patient tolerated the change well. The patients potassium and magnesium were replaced. Critical Care Time Spent (in minutes): 60 CCU Objective - Vital Signs / Intake & Output Vital Signs (Last 4 hours): Vital Signs Temp Pulse Resp BP Pulse Ox 10/23/16 10:05 80 12 141/65 100 10/23/16 09:05 86 15 143/70 100 10/23/16 08:06 85 14 141/63 100 10/23/16 08:00 99 F 79 15 152/72 H 100 Intake and Output (Last 8hrs): Intake & Output 10/22/16 10/23/16 10/23/16 22:59 06:59 14:59 Intake Total 725 1075 400 Output Total 310 520 380 Balance 415 555 20 Weight 99.11 kg Intake: Intake, IV Amount 725 1075 400 Right PICC 725 1075 400 Oral 0 0 0 Output: Urine 255 520 380 Urethral (Santiago) 255 520 380 Stool 55 Other: # Bowel Movements 0 - Physical Exam Head: Positive for: Atraumatic, Normocephalic Pupils: Positive for: Sluggish, Other (corneal reflex intact) Mouth: Positive for: Moist Mucous Membranes. Negative for: Dry, Drooling Pharnyx: Positive for: Other (weak cough and gag reflexes) Neck: Negative for: JVD, Lymphadenopathy Respiratory/Chest: Positive for: Good Air Exchange, Rhonchi, Other (intubated). Negative for: Clear to Auscultation, Respiratory Distress, Accessory Muscle Use, Wheezes, Rales Cardiovascular: Positive for: Regular Rate and Rhythm, Normal S1, S2, Peripheal Pulses Present. Negative for: Murmurs Abdomen: Positive for: Tenderness, Normal Bowel Sounds. Negative for: Distention Upper Extremity: Positive for: Normal Inspection, NORMAL PULSES, Neurovascularly Intact, Other (minimal withdrawl to painful stimuli) Lower Extremity: Positive for: Normal Inspection, NORMAL PULSES, Neurovascularly Intact, Other (minimal withdrawl to painful stimuli) Neurological: Positive for: Other (minimally responsive- opening eyes, minimal withdrawal to pain, brainstem reflexes weak, up-going babinski b/l) Skin: Positive for: Warm, Dry - Medications Active Medications: Active Medications Generic Name Dose Route Start Last Admin Trade Name Freq PRN Reason Stop Dose Admin Acetaminophen 650 mg 10/23/16 07:54 Tylenol 650 Mg Supp WA Q4 PRN Fever >100.4 F Artificial Tears 1 gm 10/11/16 10:30 10/23/16 10:14 Lacri-Lube OU 1 gm BID MINI Administration Enoxaparin Sodium 40 mg 10/09/16 17:30 10/21/16 09:22 Lovenox SC 40 mg DAILY MINI Administration Ceftriaxone Sodium 2 gm/ 100 mls @ 100 mls/hr 10/10/16 22:00 10/22/16 21:25 Sodium Chloride IVPB 100 mls/hr Q12 MINI Administration Vancomycin/Sodium Chloride 1 gm in 200 mls @ 133.333 mls/hr 10/19/16 18:30 05:46 Vancocin IVPB 10/24/16 18:31 133.333 mls/hr Q12H MINI Administration Insulin Aspart 0 unit 10/17/16 12:00 10/23/16 05:48 Novolog SC Not Given Q6 [facility] Protocol Insulin Detemir 40 unit 10/18/16 10:08 10/23/16 10:03 Levemir SC Not Given Q12 MINI Lactulose 20 gm 10/12/16 18:00 10/22/16 11:00 Enulose NG Not Given BID [facility] Metoprolol Tartrate 5 mg 10/22/16 18:00 10/23/16 09:10 Lopressor IVP 5 mg BID MINI Administration Pantoprazole Sodium 40 mg 10/23/16 10:00 10/23/16 10:14 Protonix Inj IVP 40 mg DAILY MINI Administration - Patient Studies Lab Studies: Microbiology Studies 10/19/16 17:30 Blood Culture - Preliminary Blood-Thru Central Line NO GROWTH AFTER 3 DAYS 10/19/16 17:30 Blood Culture - Preliminary Blood-Thru Central Line NO GROWTH AFTER 3 DAYS 10/19/16 Unknown Gram Stain - Final Trachasp Sputum Culture - Final NORMAL ORAL IGLESIA Lab Studies 10/23/16 10/23/16 10/23/16 Range/Units 06:23 06:23 05:42 WBC 9.8 (4.8-10.8) K/uL RBC 3.59 L (3.80-5.20) Mil/uL Hgb 10.6 L (11.0-16.0) g/dL Hct 32.6 L (34.0-47.0) % MCV 90.8 (81.0-99.0) fL MCH 29.6 (27.0-31.0) pg MCHC 32.6 L (33.0-37.0) g/dL RDW 13.5 (11.5-14.5) % Plt Count 211 (130-400) K/uL MPV 9.2 (7.2-11.7) fL Neut % (Auto) 68.6 (50.0-75.0) % Lymph % (Auto) 22.1 (20.0-40.0) % Gooding % (Auto) 5.7 (0.0-10.0) % Eos % (Auto) 2.7 (0.0-4.0) % Baso % (Auto) 0.9 (0.0-2.0) % Neut # 6.7 (1.8-7.0) K/uL Lymph # 2.2 (1.0-4.3) K/uL Gooding # 0.6 (0.0-0.8) K/uL Eos # 0.3 (0.0-0.7) K/uL Baso # 0.1 (0.0-0.2) K/uL Puncture Site pCO2 (35-45) mm/Hg pO2 (80-100) mm/Hg HCO3 (21-28) mmol/L ABG pH (7.35-7.45) ABG Total CO2 (22-28) mmol/L ABG O2 Saturation (95-98) % ABG Base Excess (-2.0-3.0) mmol/L ABG Hemoglobin (11.7-17.4) g/dL ABG Carboxyhemoglobin (0.5-1.5) % POC ABG HHb (Measured) (0.0-5.0) % ABG Methemoglobin (0.0-3.0) % Nico Test A-a O2 Difference mm/Hg Respiratory Index Hgb O2 Saturation (95.0-98.0) % Mechanical Rate FiO2 % Tidal Volume PEEP Sodium 147 (132-148) mmol/L Potassium 3.6 (3.6-5.2) mmol/L Chloride 110 H (98-107) mmol/L Carbon Dioxide 30 (22-30) mmol/L Anion Gap 11 (10-20) BUN 16 (7-17) mg/dL Creatinine 0.4 L (0.7-1.2) MG/DL Est GFR ( Amer) > 60 Est GFR (Non-Af Amer) > 60 POC Glucose (mg/dL) 268 H (65-110) mg/dL Random Glucose 247 H (65-105) mg/dL Calcium 9.1 (8.6-10.4) mg/dl Phosphorus 2.5 (2.5-4.5) mg/dL Magnesium 1.9 (1.6-2.3) mg/dL Total Bilirubin 0.9 (0.2-1.3) mg/dL AST 48 H (14-36) U/L ALT 42 (9-52) U/L Alkaline Phosphatase 120 (38-126) U/L Total Protein 6.3 (6.3-8.3) g/dL Albumin 2.8 L (3.5-5.0) g/dL Globulin 3.5 (2.2-3.9) gm/dL Albumin/Globulin Ratio 0.8 L (1.0-2.1) 10/23/16 10/22/16 10/22/16 Range/Units 05:36 23:19 17:51 WBC (4.8-10.8) K/uL RBC (3.80-5.20) Mil/uL Hgb (11.0-16.0) g/dL Hct (34.0-47.0) % MCV (81.0-99.0) fL MCH (27.0-31.0) pg MCHC (33.0-37.0) g/dL RDW (11.5-14.5) % Plt Count (130-400) K/uL MPV (7.2-11.7) fL Neut % (Auto) (50.0-75.0) % Lymph % (Auto) (20.0-40.0) % Gooding % (Auto) (0.0-10.0) % Eos % (Auto) (0.0-4.0) % Baso % (Auto) (0.0-2.0) % Neut # (1.8-7.0) K/uL Lymph # (1.0-4.3) K/uL Gooding # (0.0-0.8) K/uL Eos # (0.0-0.7) K/uL Baso # (0.0-0.2) K/uL Puncture Site Lr pCO2 47 H (35-45) mm/Hg pO2 124 H (80-100) mm/Hg HCO3 28.4 H (21-28) mmol/L ABG pH 7.41 (7.35-7.45) ABG Total CO2 31.2 H (22-28) mmol/L ABG O2 Saturation 98.7 H (95-98) % ABG Base Excess 4.5 H (-2.0-3.0) mmol/L ABG Hemoglobin 10.5 L (11.7-17.4) g/dL ABG Carboxyhemoglobin 1.4 (0.5-1.5) % POC ABG HHb (Measured) 1.3 (0.0-5.0) % ABG Methemoglobin 1.0 (0.0-3.0) % Nico Test Pos A-a O2 Difference 174.0 mm/Hg Respiratory Index 1.4 Hgb O2 Saturation 96.3 (95.0-98.0) % Mechanical Rate 12 FiO2 50.0 % Tidal Volume 500 PEEP 5 Sodium (132-148) mmol/L Potassium (3.6-5.2) mmol/L Chloride (98-107) mmol/L Carbon Dioxide (22-30) mmol/L Anion Gap (10-20) BUN (7-17) mg/dL Creatinine (0.7-1.2) MG/DL Est GFR ( Amer) Est GFR (Non-Af Amer) POC Glucose (mg/dL) 158 H 117 H (65-110) mg/dL Random Glucose (65-105) mg/dL Calcium (8.6-10.4) mg/dl Phosphorus (2.5-4.5) mg/dL Magnesium (1.6-2.3) mg/dL Total Bilirubin (0.2-1.3) mg/dL AST (14-36) U/L ALT (9-52) U/L Alkaline Phosphatase (38-126) U/L Total Protein (6.3-8.3) g/dL Albumin (3.5-5.0) g/dL Globulin (2.2-3.9) gm/dL Albumin/Globulin Ratio (1.0-2.1) 10/22/16 Range/Units 11:27 WBC (4.8-10.8) K/uL RBC (3.80-5.20) Mil/uL Hgb (11.0-16.0) g/dL Hct (34.0-47.0) % MCV (81.0-99.0) fL MCH (27.0-31.0) pg MCHC (33.0-37.0) g/dL RDW (11.5-14.5) % Plt Count (130-400) K/uL MPV (7.2-11.7) fL Neut % (Auto) (50.0-75.0) % Lymph % (Auto) (20.0-40.0) % Gooding % (Auto) (0.0-10.0) % Eos % (Auto) (0.0-4.0) % Baso % (Auto) (0.0-2.0) % Neut # (1.8-7.0) K/uL Lymph # (1.0-4.3) K/uL Gooding # (0.0-0.8) K/uL Eos # (0.0-0.7) K/uL Baso # (0.0-0.2) K/uL Puncture Site pCO2 (35-45) mm/Hg pO2 (80-100) mm/Hg HCO3 (21-28) mmol/L ABG pH (7.35-7.45) ABG Total CO2 (22-28) mmol/L ABG O2 Saturation (95-98) % ABG Base Excess (-2.0-3.0) mmol/L ABG Hemoglobin (11.7-17.4) g/dL ABG Carboxyhemoglobin (0.5-1.5) % POC ABG HHb (Measured) (0.0-5.0) % ABG Methemoglobin (0.0-3.0) % Nico Test A-a O2 Difference mm/Hg Respiratory Index Hgb O2 Saturation (95.0-98.0) % Mechanical Rate FiO2 % Tidal Volume PEEP Sodium (132-148) mmol/L Potassium (3.6-5.2) mmol/L Chloride (98-107) mmol/L Carbon Dioxide (22-30) mmol/L Anion Gap (10-20) BUN (7-17) mg/dL Creatinine (0.7-1.2) MG/DL Est GFR ( Amer) Est GFR (Non-Af Amer) POC Glucose (mg/dL) 119 H (65-110) mg/dL Random Glucose (65-105) mg/dL Calcium (8.6-10.4) mg/dl Phosphorus (2.5-4.5) mg/dL Magnesium (1.6-2.3) mg/dL Total Bilirubin (0.2-1.3) mg/dL AST (14-36) U/L ALT (9-52) U/L Alkaline Phosphatase (38-126) U/L Total Protein (6.3-8.3) g/dL Albumin (3.5-5.0) g/dL Globulin (2.2-3.9) gm/dL Albumin/Globulin Ratio (1.0-2.1) Laboratory Results - last 24 hr 10/22/16 10/22/16 10/22/16 11:27 17:51 23:19 WBC RBC Hgb Hct MCV MCH MCHC RDW Plt Count MPV Neut % (Auto) Lymph % (Auto) Gooding % (Auto) Eos % (Auto) Baso % (Auto) Neut # Lymph # Gooding # Eos # Baso # Puncture Site pCO2 pO2 HCO3 ABG pH ABG Total CO2 ABG O2 Saturation ABG Base Excess ABG Hemoglobin ABG Carboxyhemoglobin POC ABG HHb (Measured) ABG Methemoglobin Nico Test A-a O2 Difference Respiratory Index Hgb O2 Saturation Mechanical Rate FiO2 Tidal Volume PEEP Sodium Potassium Chloride Carbon Dioxide Anion Gap BUN Creatinine Est GFR ( Amer) Est GFR (Non-Af Amer) POC Glucose (mg/dL) 119 H 117 H 158 H Random Glucose Calcium Phosphorus Magnesium Total Bilirubin AST ALT Alkaline Phosphatase Total Protein Albumin Globulin Albumin/Globulin Ratio 10/23/16 10/23/16 10/23/16 05:36 05:42 06:23 WBC 9.8 RBC 3.59 L Hgb 10.6 L Hct 32.6 L MCV 90.8 MCH 29.6 MCHC 32.6 L RDW 13.5 Plt Count 211 MPV 9.2 Neut % (Auto) 68.6 Lymph % (Auto) 22.1 Gooding % (Auto) 5.7 Eos % (Auto) 2.7 Baso % (Auto) 0.9 Neut # 6.7 Lymph # 2.2 Gooding # 0.6 Eos # 0.3 Baso # 0.1 Puncture Site Lr pCO2 47 H pO2 124 H HCO3 28.4 H ABG pH 7.41 ABG Total CO2 31.2 H ABG O2 Saturation 98.7 H ABG Base Excess 4.5 H ABG Hemoglobin 10.5 L ABG Carboxyhemoglobin 1.4 POC ABG HHb (Measured) 1.3 ABG Methemoglobin 1.0 Nico Test Pos A-a O2 Difference 174.0 Respiratory Index 1.4 Hgb O2 Saturation 96.3 Mechanical Rate 12 FiO2 50.0 Tidal Volume 500 PEEP 5 Sodium Potassium Chloride Carbon Dioxide Anion Gap BUN Creatinine Est GFR ( Amer) Est GFR (Non-Af Amer) POC Glucose (mg/dL) 268 H Random Glucose Calcium Phosphorus Magnesium Total Bilirubin AST ALT Alkaline Phosphatase Total Protein Albumin Globulin Albumin/Globulin Ratio 10/23/16 06:23 WBC RBC Hgb Hct MCV MCH MCHC RDW Plt Count MPV Neut % (Auto) Lymph % (Auto) Gooding % (Auto) Eos % (Auto) Baso % (Auto) Neut # Lymph # Gooding # Eos # Baso # Puncture Site pCO2 pO2 HCO3 ABG pH ABG Total CO2 ABG O2 Saturation ABG Base Excess ABG Hemoglobin ABG Carboxyhemoglobin POC ABG HHb (Measured) ABG Methemoglobin Nico Test A-a O2 Difference Respiratory Index Hgb O2 Saturation Mechanical Rate FiO2 Tidal Volume PEEP Sodium 147 Potassium 3.6 Chloride 110 H Carbon Dioxide 30 Anion Gap 11 BUN 16 Creatinine 0.4 L Est GFR ( Amer) > 60 Est GFR (Non-Af Amer) > 60 POC Glucose (mg/dL) Random Glucose 247 H Calcium 9.1 Phosphorus 2.5 Magnesium 1.9 Total Bilirubin 0.9 AST 48 H ALT 42 Alkaline Phosphatase 120 Total Protein 6.3 Albumin 2.8 L Globulin 3.5 Albumin/Globulin Ratio 0.8 L Fingerstick Blood Sugar Results: 268 Review of Systems - Review of Systems Systems not reviewed;Unavailable: Intubated Critical Care Progress Note - Ventilator Checklist Head of Bed 30 Degrees: Yes - Vent Settings MODE:: CPAP RESP RATE:: 12 PEEP:: 5 PRESSURE SUPPORT:: 15 - Extremities/Vascular Does the Patient have a Central Venous Catheter?: Yes Insertion Site: R PICC Does the Patient need a Central Venous Catheter?: Yes Does the Patient have a Santiago Catheter?: Yes Catheter Insertion Criteria: Patient requires prolonged immobilization - Prophylaxis GI Prophylaxis GI: PPI - Prophylaxis DVT Prophylaxis DVT: Lovenox - Nutrition Nutrition: Nutrition Category Date Time Status NPO Diet [DIET] Diets 10/23/16 Breakfast Active Assessment/Plan (1) Acute respiratory failure Current Visit: Yes Status: Acute (2) Bacterial meningoencephalitis Current Visit: Yes Status: Acute - Assessment and Plan (Free Text) Plan: Patient Status: No acute change. Stable s/p trach with Dr. Rodriguez. Possible PEG placement today with GI. Consent pending family discussion. Neuro: -Bacterial Meningitis -Intact brainstem reflexes- weak -Up-going Babinski B/L -Intubated and Sedated -Brain MRI planning in progress. patient will need to be transferred to [place] for ventilator safe MRI -Dr. Moulton on case -Imaging: : 10/21/16 CT Head- Examination limited by motion. Nonspecific white matter changes and hypodensities predominantly involving kearney radiata and centrum semiovale bilaterally as above concerning for multifocal ischemia. Opacification of bilateral sphenoid sinuses. Mucosal thickening of the right frontal sinus. Mucosal thickening of the ethmoid air cells. Correlate clinically for sinusitis. Examination limited by mastoid air cells ; correlate clinically for otomastoiditis. : 10/12/16 CT Head- 1. Study is markedly limited by motion artifact. 2. Abnormal low density changes within the kearney radiata and centrum semiovale bilaterally more conspicuous than on the previous 10/09/2016. Study is concerning for multifocal ischemia. 3. Acute sinusitis involving the ethmoid, sphenoid and frontal sinuses. : 10/10/[address]- Limited study. The opacification of the distal internal carotid arteries and intracranial arteries is limited. Segmental mild- to-moderate stenosis at the distal right internal carotid arteries. Moderate diffuse atherosclerotic disease. The right middle cerebral artery is smaller than the left demonstrates diffuse irregularity. The distal right vertebral artery is smaller than the left. Pansinusitis. Complete opacification of the right frontal sinus. Focal defect seen in the posterior wall of the right frontal sinus without definite evidence of abscess formation in the intracranial frontal fossa. The possibility of infection spread into the intracranial fossa is not totally excluded in this exam. : 10/09/16 CT Head- No evidence of acute infarct. No intracranial mass or hemorrhage. Chronic microvascular white matter ischemic change. Chronic paranasal sinusitis. Nonspecific bilateral mastoid effusion. : 10/08/16 CT Head- Extensive bibasilar consolidation. No evidence of pulmonary embolism. : 10/08/16 CT Head- 1. No definite acute intracranial abnormality. Acute infarction may be CT occult within first 24 hours. If a focal deficit persists , consider followup CT or MRI for further evaluation. 2. Sinus disease. Cardiovascular: -Hemodynamically stable Pulmonary: -POD #1 s/p trach placement with Dr. Rodriguez -CPAP- 30/09 rate 12- tolerating well -Imaging : 10/23/16 CXR- Tracheostomy tube in place. Moderate venous congestion. Patchy consolidative markings at the right lung base may represent underlying infiltrate and or atelectasis. Milder patchy increased markings at the left lung base. Bilateral hilar prominence. Mild cardiomegaly. Degenerative changes in the spine and shoulders. : 10/22/16 CXR- Satisfactory position of tracheostomy device. No active pulmonary disease. : 10/22/16 CXR- Moderate venous congestion. Bibasilar airspace opacification. Right hilar and infrahilar consolidative changes. Biapical pleural thickening with upper lobe granulomatous changes. Cardiomegaly. : 10/21/16 CXR- No active disease. Lines and tubes unchanged. : 10/20/16 CXR- In situ ETT, tip of which lies approximately 5.65 cm above pia. NGT is present, the tip of which has not been included on this film though distal aspect does lie below EG junction. Right-sided PICC line with tip in the SVC. Bibasilar atelectatic changes are felt to be present. : 10/19/16 CXR- ETT, NGT and right-sided PICC line as above. Patchy left lower lobe atelectasis and or infiltrate. : 10/18/16 CXR- Right sided PICC line with tip SVC. Right IJ central venous line is also present the tip in the SVC as well. In situ ETT, tip of which lies approximately 4.6 cm above pia. NGT is present, the, tip of which has not been included on this film though distal aspect does lie well below EG junction. Vague patchy opacity in the left mid to lower lung field could represent developing atelectasis and or infiltrate. Suspect minor right basilar atelectasis. : 10/17/16 CXR- Moderate venous congestion. Patchy consolidative changes at both lung bases; right greater than left. Small left pleural effusion. Biapical pleural thickening with upper lobe granulomatous changes. Cardiomegaly. -ABG : 10/23/16- CO2= 47 / O2= 124 / HCO3=28.4 / pH= 7.41 : 10/22/16- CO2= 45 / O2=78 / HCO3=31.8 / pH= 7.48 : 10/21/16- CO2= 44 / O2=72 / HCO3=32.0 / pH= 7.49 : 10/20/16- CO2= 45 / O2=78 / HCO3=33.1 / pH= 7.50 : 10/19/16- CO2= 43 / O2=62 / HCO3=32.1 / pH= 7.50 : 10/18/16- CO2= 44 / O2=74 / HCO3=29.6 / pH= 7.46 : 10/17/16- CO2= 46 / O2=78 / HCO3=32.1 / pH= 7.48 Gastrointestinal: -GI Consult placed for PEG tube placement evaluation - NGT removed - maintenance fluids (D5 @ 125ml/hr) Hematology: -No issues Endocrine: -Insulin 40u SC daily -Novolin sliding scale Renal: -Respiratory Acidosis with metabolic compensation -Hypokalemia- replaced with 20meq IV -Hypomagnesemia- replaced with 1g IV -Monitor I&Os Musculoskeletal: -None Genitourinary: -No issues -Voiding well Infectious Disease: -Bacterial Meningitis -Dr. Long Following -Vancomycin 1g IV q12 day 5 -Ceftriaxone 2g IV q12 Day 14 GI Prophylaxis: Protonix 40mg PO daily DVT Prophylaxis: Lovenox 40mg SC Daily Case Discussed with Dr. Yohan Wilson PGY1 - Date & Time Date: 10/23/16 Time: 11:16 <Matteo Almanzar S - Last Filed: 10/23/16 17:50> CCU Subjective - Physician Review Critical Care Time Spent (in minutes): 40 CCU Objective - Vital Signs / Intake & Output Vital Signs (Last 4 hours): Vital Signs Pulse Resp BP Pulse Ox 10/23/16 16:23 92 H 17 143/76 98 10/23/16 15:01 80 23 104/50 L 99 10/23/16 14:01 85 15 114/58 L 98 Intake and Output (Last 8hrs): Intake & Output 10/23/16 10/23/16 10/23/16 06:59 14:59 22:59 Intake Total 1075 875 375 Output Total 520 675 225 Balance 555 200 150 Weight 218 lb 8 oz Intake: IV 200 Intake, IV Amount 1075 675 375 Right PICC 1075 675 375 Oral 0 0 Output: Urine 520 675 225 Urethral (Santiago) 520 675 225 Other: # Bowel Movements 0 - Medications Active Medications: Active Medications Generic Name Dose Route Start Last Admin Trade Name Freq PRN Reason Stop Dose Admin Acetaminophen 650 mg 10/23/16 07:54 Tylenol 650 Mg Supp WA Q4 PRN Fever >100.4 F Artificial Tears 1 gm 10/11/16 10:30 10/23/16 17:14 Lacri-Lube OU 1 gm BID MNII Administration Enoxaparin Sodium 40 mg 10/09/16 17:30 10/23/16 15:32 Lovenox SC Not Given DAILY MINI Ceftriaxone Sodium 2 gm/ 100 mls @ 100 mls/hr 10/10/16 22:00 10/23/16 12:10 Sodium Chloride IVPB 100 mls/hr Q12 MINI Administration Vancomycin/Sodium Chloride 1 gm in 200 mls @ 133.333 mls/hr 10/19/16 18:30 17:32 Vancocin IVPB 10/24/16 18:31 133.333 mls/hr Q12H MINI Administration Insulin Aspart 0 unit 10/17/16 12:00 10/23/16 12:30 Novolog SC 8 unit Q6 MINI Administration Protocol Insulin Detemir 40 unit 10/18/16 10:08 10/23/16 10:03 Levemir SC Not Given Q12 MINI Lactulose 20 gm 10/12/16 18:00 10/22/16 11:00 Enulose NG Not Given BID [facility] Metoprolol Tartrate 5 mg 10/22/16 18:00 10/23/16 17:14 Lopressor IVP 5 mg BID MINI Administration Pantoprazole Sodium 40 mg 10/24/16 13:15 Protonix Ec Tab PO ACB MINI - Patient Studies Lab Studies: Microbiology Studies 10/19/16 17:30 Blood Culture - Preliminary Blood-Thru Central Line NO GROWTH AFTER 3 DAYS 10/19/16 17:30 Blood Culture - Preliminary Blood-Thru Central Line NO GROWTH AFTER 3 DAYS Lab Studies 10/23/16 10/23/16 10/23/16 Range/Units 12:06 06:23 06:23 WBC 9.8 (4.8-10.8) K/uL RBC 3.59 L (3.80-5.20) Mil/uL Hgb 10.6 L (11.0-16.0) g/dL Hct 32.6 L (34.0-47.0) % MCV 90.8 (81.0-99.0) fL MCH 29.6 (27.0-31.0) pg MCHC 32.6 L (33.0-37.0) g/dL RDW 13.5 (11.5-14.5) % Plt Count 211 (130-400) K/uL MPV 9.2 (7.2-11.7) fL Neut % (Auto) 68.6 (50.0-75.0) % Lymph % (Auto) 22.1 (20.0-40.0) % Gooding % (Auto) 5.7 (0.0-10.0) % Eos % (Auto) 2.7 (0.0-4.0) % Baso % (Auto) 0.9 (0.0-2.0) % Neut # 6.7 (1.8-7.0) K/uL Lymph # 2.2 (1.0-4.3) K/uL Gooding # 0.6 (0.0-0.8) K/uL Eos # 0.3 (0.0-0.7) K/uL Baso # 0.1 (0.0-0.2) K/uL Puncture Site pCO2 (35-45) mm/Hg pO2 (80-100) mm/Hg HCO3 (21-28) mmol/L ABG pH (7.35-7.45) ABG Total CO2 (22-28) mmol/L ABG O2 Saturation (95-98) % ABG Base Excess (-2.0-3.0) mmol/L ABG Hemoglobin (11.7-17.4) g/dL ABG Carboxyhemoglobin (0.5-1.5) % POC ABG HHb (Measured) (0.0-5.0) % ABG Methemoglobin (0.0-3.0) % Nico Test A-a O2 Difference mm/Hg Respiratory Index Hgb O2 Saturation (95.0-98.0) % Mechanical Rate FiO2 % Tidal Volume PEEP Sodium 147 (132-148) mmol/L Potassium 3.6 (3.6-5.2) mmol/L Chloride 110 H (98-107) mmol/L Carbon Dioxide 30 (22-30) mmol/L Anion Gap 11 (10-20) BUN 16 (7-17) mg/dL Creatinine 0.4 L (0.7-1.2) MG/DL Est GFR ( Amer) > 60 Est GFR (Non-Af Amer) > 60 POC Glucose (mg/dL) 344 H (65-110) mg/dL Random Glucose 247 H (65-105) mg/dL Calcium 9.1 (8.6-10.4) mg/dl Phosphorus 2.5 (2.5-4.5) mg/dL Magnesium 1.9 (1.6-2.3) mg/dL Total Bilirubin 0.9 (0.2-1.3) mg/dL AST 48 H (14-36) U/L ALT 42 (9-52) U/L Alkaline Phosphatase 120 (38-126) U/L Total Protein 6.3 (6.3-8.3) g/dL Albumin 2.8 L (3.5-5.0) g/dL Globulin 3.5 (2.2-3.9) gm/dL Albumin/Globulin Ratio 0.8 L (1.0-2.1) 10/23/16 10/23/16 10/22/16 Range/Units 05:42 05:36 23:19 WBC (4.8-10.8) K/uL RBC (3.80-5.20) Mil/uL Hgb (11.0-16.0) g/dL Hct (34.0-47.0) % MCV (81.0-99.0) fL MCH (27.0-31.0) pg MCHC (33.0-37.0) g/dL RDW (11.5-14.5) % Plt Count (130-400) K/uL MPV (7.2-11.7) fL Neut % (Auto) (50.0-75.0) % Lymph % (Auto) (20.0-40.0) % [place] % (Auto) (0.0-10.0) % Eos % (Auto) (0.0-4.0) % Baso % (Auto) (0.0-2.0) % Neut # (1.8-7.0) K/uL Lymph # (1.0-4.3) K/uL Gooding # (0.0-0.8) K/uL Eos # (0.0-0.7) K/uL Baso # (0.0-0.2) K/uL Puncture Site Lr pCO2 47 H (35-45) mm/Hg pO2 124 H (80-100) mm/Hg HCO3 28.4 H (21-28) mmol/L ABG pH 7.41 (7.35-7.45) ABG Total CO2 31.2 H (22-28) mmol/L ABG O2 Saturation 98.7 H (95-98) % ABG Base Excess 4.5 H (-2.0-3.0) mmol/L ABG Hemoglobin 10.5 L (11.7-17.4) g/dL ABG Carboxyhemoglobin 1.4 (0.5-1.5) % POC ABG HHb (Measured) 1.3 (0.0-5.0) % ABG Methemoglobin 1.0 (0.0-3.0) % Nico Test Pos A-a O2 Difference 174.0 mm/Hg Respiratory Index 1.4 Hgb O2 Saturation 96.3 (95.0-98.0) % Mechanical Rate 12 FiO2 50.0 % Tidal Volume 500 PEEP 5 Sodium (132-148) mmol/L Potassium (3.6-5.2) mmol/L Chloride (98-107) mmol/L Carbon Dioxide (22-30) mmol/L Anion Gap (10-20) BUN (7-17) mg/dL Creatinine (0.7-1.2) MG/DL Est GFR ( Amer) Est GFR (Non-Af Amer) POC Glucose (mg/dL) 268 H 158 H (65-110) mg/dL Random Glucose (65-105) mg/dL Calcium (8.6-10.4) mg/dl Phosphorus (2.5-4.5) mg/dL Magnesium (1.6-2.3) mg/dL Total Bilirubin (0.2-1.3) mg/dL AST (14-36) U/L ALT (9-52) U/L Alkaline Phosphatase (38-126) U/L Total Protein (6.3-8.3) g/dL Albumin (3.5-5.0) g/dL Globulin (2.2-3.9) gm/dL Albumin/Globulin Ratio (1.0-2.1) 10/22/16 Range/Units 17:51 WBC (4.8-10.8) K/uL RBC (3.80-5.20) Mil/uL Hgb (11.0-16.0) g/dL Hct (34.0-47.0) % MCV (81.0-99.0) fL MCH (27.0-31.0) pg MCHC (33.0-37.0) g/dL RDW (11.5-14.5) % Plt Count (130-400) K/uL MPV (7.2-11.7) fL Neut % (Auto) (50.0-75.0) % Lymph % (Auto) (20.0-40.0) % Gooding % (Auto) (0.0-10.0) % Eos % (Auto) (0.0-4.0) % Baso % (Auto) (0.0-2.0) % Neut # (1.8-7.0) K/uL Lymph # (1.0-4.3) K/uL Gooding # (0.0-0.8) K/uL Eos # (0.0-0.7) K/uL Baso # (0.0-0.2) K/uL Puncture Site pCO2 (35-45) mm/Hg pO2 (80-100) mm/Hg HCO3 (21-28) mmol/L ABG pH (7.35-7.45) ABG Total CO2 (22-28) mmol/L ABG O2 Saturation (95-98) % ABG Base Excess (-2.0-3.0) mmol/L ABG Hemoglobin (11.7-17.4) g/dL ABG Carboxyhemoglobin (0.5-1.5) % POC ABG HHb (Measured) (0.0-5.0) % ABG Methemoglobin (0.0-3.0) % Nico Test A-a O2 Difference mm/Hg Respiratory Index Hgb O2 Saturation (95.0-98.0) % Mechanical Rate FiO2 % Tidal Volume PEEP Sodium (132-148) mmol/L Potassium (3.6-5.2) mmol/L Chloride (98-107) mmol/L Carbon Dioxide (22-30) mmol/L Anion Gap (10-20) BUN (7-17) mg/dL Creatinine (0.7-1.2) MG/DL Est GFR ( Amer) Est GFR (Non-Af Amer) POC Glucose (mg/dL) 117 H (65-110) mg/dL Random Glucose (65-105) mg/dL Calcium (8.6-10.4) mg/dl Phosphorus (2.5-4.5) mg/dL Magnesium (1.6-2.3) mg/dL Total Bilirubin (0.2-1.3) mg/dL AST (14-36) U/L ALT (9-52) U/L Alkaline Phosphatase (38-126) U/L Total Protein (6.3-8.3) g/dL Albumin (3.5-5.0) g/dL Globulin (2.2-3.9) gm/dL Albumin/Globulin Ratio (1.0-2.1) Laboratory Results - last 24 hr 10/22/16 10/22/16 10/23/16 17:51 23:19 05:36 WBC RBC Hgb Hct MCV MCH MCHC RDW Plt Count MPV Neut % (Auto) Lymph % (Auto) Gooding % (Auto) Eos % (Auto) Baso % (Auto) Neut # Lymph # Gooding # Eos # Baso # Puncture Site Lr pCO2 47 H pO2 124 H HCO3 28.4 H ABG pH 7.41 ABG Total CO2 31.2 H ABG O2 Saturation 98.7 H ABG Base Excess 4.5 H ABG Hemoglobin 10.5 L ABG Carboxyhemoglobin 1.4 POC ABG HHb (Measured) 1.3 ABG Methemoglobin 1.0 Nico Test Pos A-a O2 Difference 174.0 Respiratory Index 1.4 Hgb O2 Saturation 96.3 Mechanical Rate 12 FiO2 50.0 Tidal Volume 500 PEEP 5 Sodium Potassium Chloride Carbon Dioxide Anion Gap BUN Creatinine Est GFR ( Amer) Est GFR (Non-Af Amer) POC Glucose (mg/dL) 117 H 158 H Random Glucose Calcium Phosphorus Magnesium Total Bilirubin AST ALT Alkaline Phosphatase Total Protein Albumin Globulin Albumin/Globulin Ratio 10/23/16 10/23/16 10/23/16 05:42 06:23 06:23 WBC 9.8 RBC 3.59 L Hgb 10.6 L Hct 32.6 L MCV 90.8 MCH 29.6 MCHC 32.6 L RDW 13.5 Plt Count 211 MPV 9.2 Neut % (Auto) 68.6 Lymph % (Auto) 22.1 Gooding % (Auto) 5.7 Eos % (Auto) 2.7 Baso % (Auto) 0.9 Neut # 6.7 Lymph # 2.2 Gooding # 0.6 Eos # 0.3 Baso # 0.1 Puncture Site pCO2 pO2 HCO3 ABG pH ABG Total CO2 ABG O2 Saturation ABG Base Excess ABG Hemoglobin ABG Carboxyhemoglobin POC ABG HHb (Measured) ABG Methemoglobin Nico Test A-a O2 Difference Respiratory Index Hgb O2 Saturation Mechanical Rate FiO2 Tidal Volume PEEP Sodium 147 Potassium 3.6 Chloride 110 H Carbon Dioxide 30 Anion Gap 11 BUN 16 Creatinine 0.4 L Est GFR ( Amer) > 60 Est GFR (Non-Af Amer) > 60 POC Glucose (mg/dL) 268 H Random Glucose 247 H Calcium 9.1 Phosphorus 2.5 Magnesium 1.9 Total Bilirubin 0.9 AST 48 H ALT 42 Alkaline Phosphatase 120 Total Protein 6.3 Albumin 2.8 L Globulin 3.5 Albumin/Globulin Ratio 0.8 L 10/23/16 12:06 WBC RBC Hgb Hct MCV MCH MCHC RDW Plt Count MPV Neut % (Auto) Lymph % (Auto) Gooding % (Auto) Eos % (Auto) Baso % (Auto) Neut # Lymph # Gooding # Eos # Baso # Puncture Site pCO2 pO2 HCO3 ABG pH ABG Total CO2 ABG O2 Saturation ABG Base Excess ABG Hemoglobin ABG Carboxyhemoglobin POC ABG HHb (Measured) ABG Methemoglobin Nico Test A-a O2 Difference Respiratory Index Hgb O2 Saturation Mechanical Rate FiO2 Tidal Volume PEEP Sodium Potassium Chloride Carbon Dioxide Anion Gap BUN Creatinine Est GFR ( Amer) Est GFR (Non-Af Amer) POC Glucose (mg/dL) 344 H Random Glucose Calcium Phosphorus Magnesium Total Bilirubin AST ALT Alkaline Phosphatase Total Protein Albumin Globulin Albumin/Globulin Ratio Critical Care Progress Note - Nutrition Nutrition: Nutrition Category Date Time Status NPO Diet [DIET] Diets 10/23/16 Breakfast Active Attending/Attestation - Attestation I have personally seen and examined this patient.: Yes I have fully participated in the care of the patient.: Yes I have reviewed all pertinent clinical information: Yes Notes (Text): 10/23/16 17:46 Patient seen and examined in the intensive care unit. Case discussed with house staff in the morning rounds. Status post tracheostomy on ventilator support No change in mental status Patient seen by neurology and the plan is to get MRI of head. Patient need to be transported to [place] for MRI
[2016-10-23] MEDS: cefTRIAXone 2 GM in Sodium Chloride 0.9% 100 ML IVPB SCH ×2 (12:10→21:40)
--- NOTE | 2016-10-23 13:20 | CP.PCM.PN ---
Subjective - Date & Time of Evaluation Date of Evaluation: 10/23/16 Time of Evaluation: 11:15 - Subjective Subjective: Mrs. Caraballo was seen and examined today at bedside in the ICU. She continues to be in a vegetative state. Trach is in place and she is clinically unchanged. Objective - Vital Signs/Intake and Output Vital Signs (last 24 hours): Temp Pulse Resp BP Pulse Ox 99.2 F 95 H 10 L 120/79 99 10/23/16 11:35 10/23/16 11:35 10/23/16 11:35 10/23/16 11:35 10/23/16 11:35 Intake and Output: 10/23/16 10/23/16 06:59 18:59 Intake Total 1550 650 Output Total 660 480 Balance 890 170 - Medications Medications: Current Medications Acetaminophen (Tylenol 650 Mg Supp) 650 mg LA Q4 PRN PRN Reason: Fever >100.4 F Artificial Tears (Lacri-Lube) 1 gm OU BID [facility] Last Admin: 10/23/16 10:14 Dose: 1 gm Enoxaparin Sodium (Lovenox) 40 mg SC DAILY [facility] Last Admin: 10/21/16 09:22 Dose: 40 mg Ceftriaxone Sodium 2 gm/ (Sodium Chloride) 100 mls @ 100 mls/hr IVPB Q12 [facility] Last Admin: 10/23/16 12:10 Dose: 100 mls/hr Vancomycin/Sodium Chloride (Vancocin) 1 gm in 200 mls @ 133.333 mls/hr IVPB Q12H [facility] Stop: 10/24/16 18:31 Last Admin: 10/23/16 05:46 Dose: 133.333 mls/hr Insulin Aspart (Novolog) 0 unit SC Q6 [facility] PRN Reason: Protocol Last Admin: 10/23/16 12:30 Dose: 8 unit Insulin Detemir (Levemir) 40 unit SC Q12 [facility] Last Admin: 10/23/16 10:03 Dose: Not Given Lactulose (Enulose) 20 gm NG BID [facility] Last Admin: 10/22/16 11:00 Dose: Not Given Metoprolol Tartrate (Lopressor) 5 mg IVP BID [facility] Last Admin: 10/23/16 09:10 Dose: 5 mg Pantoprazole Sodium (Protonix Ec Tab) 40 mg PO ACB [facility] - Labs Labs: 10/23/16 06:23 10/23/16 06:23 PT 12.6 SECONDS (9.7-12.2) H 10/22/16 06:28 INR 1.1 10/22/16 06:28 APTT 31 SECONDS (21-34) 10/22/16 06:28 - Neurological Exam Neurological Exam: Altered Neuro motor strength exam: Left Upper Extremity: 0, Right Upper Extremity: 0, Left Lower Extremity: 0, Right Lower Extremity: 0 Additional comments: Vegetative state with preserved brainstem reflexes and opens eyes, but not to command. Assessment and Plan (1) Bacterial meningoencephalitis Assessment & Plan: Will obtain MRI of the brain with and without contrast to evaluate for possible new infarcts considering the CT head findings and lack of any clinical improvement. This may also help in prognostication and discussions with the family. Continue current medical management. Status: Acute
[2016-10-23] MEDS ORDERED: Pantoprazole 80 MG in Sodium Chloride 0.9% 100 ML IVPB SCH (13:30)
[2016-10-23] MEDS: Enoxaparin 40 mg Syringe SC SCH (15:32)
--- NOTE | 2016-10-23 15:54 | CP.PCM.PN ---
Subjective - Date & Time of Evaluation Date of Evaluation: 10/23/16 Time of Evaluation: 15:51 - Subjective Subjective: Surgery: Dr. Rordiguez Pt seen and examined. No acute events over night. Pt remains intubated. Does not follow commands. Objective - Vital Signs/Intake and Output Vital Signs (last 24 hours): Temp Pulse Resp BP Pulse Ox 98.5 F 80 23 104/50 L 99 10/23/16 12:45 10/23/16 15:01 10/23/16 15:01 10/23/16 15:01 10/23/16 15:01 Intake and Output: 10/23/16 10/23/16 06:59 18:59 Intake Total 1550 1000 Output Total 660 740 Balance 890 260 - Medications Medications: Current Medications Acetaminophen (Tylenol 650 Mg Supp) 650 mg OR Q4 PRN PRN Reason: Fever >100.4 F Artificial Tears (Lacri-Lube) 1 gm OU BID [facility] Last Admin: 10/23/16 10:14 Dose: 1 gm Enoxaparin Sodium (Lovenox) 40 mg SC DAILY [facility] Last Admin: 10/23/16 15:32 Dose: Not Given Ceftriaxone Sodium 2 gm/ (Sodium Chloride) 100 mls @ 100 mls/hr IVPB Q12 [facility] Last Admin: 10/23/16 12:10 Dose: 100 mls/hr Vancomycin/Sodium Chloride (Vancocin) 1 gm in 200 mls @ 133.333 mls/hr IVPB Q12H [facility] Stop: 10/24/16 18:31 Last Admin: 10/23/16 05:46 Dose: 133.333 mls/hr Insulin Aspart (Novolog) 0 unit SC Q6 [facility] PRN Reason: Protocol Last Admin: 10/23/16 12:30 Dose: 8 unit Insulin Detemir (Levemir) 40 unit SC Q12 [facility] Last Admin: 10/23/16 10:03 Dose: Not Given Lactulose (Enulose) 20 gm NG BID [facility] Last Admin: 10/22/16 11:00 Dose: Not Given Metoprolol Tartrate (Lopressor) 5 mg IVP BID [facility] Last Admin: 10/23/16 09:10 Dose: 5 mg Pantoprazole Sodium (Protonix Ec Tab) 40 mg PO ACB [facility] - Labs Labs: 10/23/16 06:23 10/23/16 06:23 PT 12.6 SECONDS (9.7-12.2) H 10/22/16 06:28 INR 1.1 10/22/16 06:28 APTT 31 SECONDS (21-34) 10/22/16 06:28 - Constitutional Appears: No Acute Distress - Head Exam Head Exam: ATRAUMATIC, NORMOCEPHALIC - ENT Exam ENT Exam: Mucous Membranes Moist - Neck Exam Additional comments: s/p trach, no hematoma - Respiratory Exam Additional comments: on vent - Neurological Exam Neurological Exam: Awake. absent: Alert Assessment and Plan - Assessment and Plan (Free Text) Assessment: 61F w. respiratory failure, s/p perc trach, POD#1 -will remove sutures POD#10 -d/w attending Ankushitis PGY2
--- NOTE | 2016-10-23 18:08 | CP.PCM.PN ---
Subjective - Date & Time of Evaluation Date of Evaluation: 10/23/16 Time of Evaluation: 09:00 - Subjective Subjective: Patient is POD #1 s/p trach placement with Dr. Rodriguez. The patient may possibly have a PEG tube placed by GI pending Objective - Vital Signs/Intake and Output Vital Signs (last 24 hours): Temp Pulse Resp BP Pulse Ox 98.5 F 92 H 17 143/76 98 10/23/16 12:45 10/23/16 16:23 10/23/16 16:23 10/23/16 16:23 10/23/16 16:23 Intake and Output: 10/23/16 10/23/16 06:59 18:59 Intake Total 1550 1250 Output Total 660 900 Balance 890 350 - Medications Medications: Current Medications Acetaminophen (Tylenol 650 Mg Supp) 650 mg [place] Q4 PRN PRN Reason: Fever >100.4 F Artificial Tears (Lacri-Lube) 1 gm OU BID [facility] Last Admin: 10/23/16 17:14 Dose: 1 gm Enoxaparin Sodium (Lovenox) 40 mg SC DAILY [facility] Last Admin: 10/23/16 15:32 Dose: Not Given Ceftriaxone Sodium 2 gm/ (Sodium Chloride) 100 mls @ 100 mls/hr IVPB Q12 [facility] Last Admin: 10/23/16 12:10 Dose: 100 mls/hr Vancomycin/Sodium Chloride (Vancocin) 1 gm in 200 mls @ 133.333 mls/hr IVPB Q12H [facility] Stop: 10/24/16 18:31 Last Admin: 10/23/16 17:32 Dose: 133.333 mls/hr Insulin Aspart (Novolog) 0 unit SC Q6 [facility] PRN Reason: Protocol Last Admin: 10/23/16 18:00 Dose: 6 unit Insulin Detemir (Levemir) 40 unit SC Q12 [facility] Last Admin: 10/23/16 10:03 Dose: Not Given Lactulose (Enulose) 20 gm NG BID [facility] Last Admin: 10/22/16 11:00 Dose: Not Given Metoprolol Tartrate (Lopressor) 5 mg IVP BID [facility] Last Admin: 10/23/16 17:14 Dose: 5 mg Pantoprazole Sodium (Protonix Ec Tab) 40 mg PO ACB [facility] - Labs Labs: 10/23/16 06:23 10/23/16 06:23 PT 12.6 SECONDS (9.7-12.2) H 10/22/16 06:28 INR 1.1 10/22/16 06:28 APTT 31 SECONDS (21-34) 10/22/16 06:28 - Constitutional Appears: Chronically Ill - Eye Exam Eye Exam: absent: Scleral icterus - Neck Exam Neck Exam: absent: Lymphadenopathy - Respiratory Exam Respiratory Exam: Decreased Breath Sounds, Rhonchi - Cardiovascular Exam Cardiovascular Exam: REGULAR RHYTHM, +S1, +S2 - Rectal Exam Rectal Exam: Deferred Assessment and Plan (1) Meningitis Status: Acute (2) Meningitis Status: Acute (3) Acute confusional state Status: Acute (4) Encephalopathy acute Status: Acute (5) Pneumonia Status: Acute (6) Sepsis Status: Acute - Assessment and Plan (Free Text) Assessment: cont iv rx neuro follow up for peg s/p trach
[2016-10-23] MEDS ORDERED: Acetaminophen 650mg/20.3ml solution UD PO PRN (21:53)
[2016-10-24] MEDS: (Novolog) Insulin Aspart, Recombinant 100 u/ml 10 ml vial SC SCH ×4 (00:14→18:09)
--- NOTE | 2016-10-24 04:29 | CP.PCM.PN ---
Subjective - Date & Time of Evaluation Date of Evaluation: 10/24/16 Time of Evaluation: 04:26 - Subjective Subjective: SURGERY PROGRESS NOTE FOR 61F seen and examined at bedside. Patient ventilated via tracheostomy, does not follow commands. Objective - Vital Signs/Intake and Output Vital Signs (last 24 hours): Temp Pulse Resp BP Pulse Ox 100 F H 72 16 144/64 100 10/24/16 00:00 10/24/16 04:00 10/24/16 04:00 10/24/16 03:23 10/24/16 04:00 Intake and Output: 10/23/16 10/24/16 18:59 06:59 Intake Total 1383.3 316 Output Total 950 430 Balance 433.3 -114 - Medications Medications: Current Medications Acetaminophen (Tylenol 650mg/20.3ml Solution Ud) 650 mg PO Q4 PRN PRN Reason: FEVER > 100.4 Artificial Tears (Lacri-Lube) 1 gm OU BID [facility] Last Admin: 10/23/16 17:14 Dose: 1 gm Enoxaparin Sodium (Lovenox) 40 mg SC DAILY [facility] Last Admin: 10/23/16 15:32 Dose: Not Given Ceftriaxone Sodium 2 gm/ (Sodium Chloride) 100 mls @ 100 mls/hr IVPB Q12 [facility] Last Admin: 10/23/16 21:40 Dose: 100 mls/hr Vancomycin/Sodium Chloride (Vancocin) 1 gm in 200 mls @ 133.333 mls/hr IVPB Q12H [facility] Stop: 10/24/16 18:31 Last Admin: 10/23/16 17:32 Dose: 133.333 mls/hr Insulin Aspart (Novolog) 0 unit SC Q6 [facility] PRN Reason: Protocol Last Admin: 10/24/16 00:14 Dose: Not Given Insulin Detemir (Levemir) 40 unit SC Q12 [facility] Last Admin: 10/23/16 21:39 Dose: Not Given Lactulose (Enulose) 20 gm NG BID [facility] Last Admin: 10/22/16 11:00 Dose: Not Given Metoprolol Tartrate (Lopressor) 5 mg IVP BID [facility] Last Admin: 10/23/16 17:14 Dose: 5 mg Pantoprazole Sodium (Protonix Ec Tab) 40 mg PO ACB [facility] - Labs Labs: 10/23/16 06:23 10/23/16 06:23 PT 12.6 SECONDS (9.7-12.2) H 10/22/16 06:28 INR 1.1 10/22/16 06:28 APTT 31 SECONDS (21-34) 10/22/16 06:28 - Neck Exam Additional comments: trach in place. no bleeding or hematoma - Cardiovascular Exam Cardiovascular Exam: REGULAR RHYTHM, +S1, +S2 Assessment and Plan - Assessment and Plan (Free Text) Assessment: 61F s/p percutaneous trach POD#2 Plan: - Monitor trach site - remove sutures POD10 Further recs discuss with Dr. Michael Mendoza, PGY1
[2016-10-24 05:39] LABS: ABG ALLEN TEST POS; ABG MECHANICAL RATE 12; ARTERIAL BLOOD HGB O2 SAT 95.8 % (95.0-98.0); ATERIAL BLOOD GAS PEEP 5; CARBOXYHEMOGLOBIN 1.5 % (0.5-1.5); DRAW SITE RR; HHB 1.5 % (0.0-5.0); METHEMOGLOBIN 1.2 % (0.0-3.0)
[2016-10-24] MEDS: Vancomycin 1 gm/NS 200 ml 1 GM/200 ML BAG IVPB SCH ×2 (05:54→18:06)
[2016-10-24 06:42] LABS: BASO # 0.1 K/uL (0.0-0.2); BASO % 1.1 % (0.0-2.0); EOS # 0.2 K/uL (0.0-0.7); EOS % 2.2 % (0.0-4.0); HEMATOCRIT 33.2 % (34.0-47.0); LYMPH # 2.2 K/uL (1.0-4.3); LYMPH % 22.2 % (20.0-40.0); MEAN CELL VOLUME 89.4 fL (81.0-99.0); MEAN CORPUSCULAR HEMOGLOBIN 29.4 pg (27.0-31.0); MEAN CORPUSCULAR HGB CONC 32.9 g/dL (33.0-37.0); MEAN PLATELET VOLUME 9.2 fL (7.2-11.7); MONO # 0.5 K/uL (0.0-0.8); RED CELL DISTRIBUTION WIDTH 12.9 % (11.5-14.5)
[2016-10-24 06:49] LABS: INR 1.1
[2016-10-24 06:52] LABS: CHLORIDE 107 mmol/L (98-107)
[2016-10-24 06:53] LABS: POTASSIUM 3.6 mmol/L (3.6-5.2); SODIUM 142 mmol/L (132-148)
[2016-10-24 06:55] LABS: ALB/GLOB RATIO 0.8 (1.0-2.1); ALKALINE PHOSPHATASE 129 U/L (38-126); ALT/SGPT 36 U/L (9-52); AST/SGOT 44 U/L (14-36); BILIRUBIN,TOTAL 0.9 mg/dL (0.2-1.3); BLOOD UREA NITROGEN 11 mg/dL (7-17); CARBON DIOXIDE 26 mmol/L (22-30); GFR AFRICAN-AMERICAN > 60; GLUCOSE,RANDOM 233 mg/dL (65-105); TOTAL PROTEIN 6.6 g/dL (6.3-8.3)
[2016-10-24 06:56] LABS: CALCIUM 9.1 mg/dl (8.6-10.4); MAGNESIUM 1.8 mg/dL (1.6-2.3)
[2016-10-24] MEDS ORDERED: Sodium Phosphate 15 MMOLE in Sodium Chloride 0.9% 250 ML IVPB ONE (08:32)
[2016-10-24] MEDS ORDERED: Magnesium Sulfate 1 gm in D5W 1 GM/100 ML BAG IVPB ONE (08:32)
--- NOTE | 2016-10-24 08:53 | CP.PCM.PN ---
<Farhad Martinez - Last Filed: 10/24/16 08:50> Subjective - Date & Time of Evaluation Date of Evaluation: 10/24/16 Time of Evaluation: 06:10 - Subjective Subjective: PGY4 GI Fellow Progress Note Patient seen and examined bedside this morning. The patient remains unresponsive to tactile/verbal stimuli. No events overnight. Tolerated placement of PEG without issue. 12 system ROS cannot be performed given clinical condition. Objective - Vital Signs/Intake and Output Vital Signs (last 24 hours): Temp Pulse Resp BP Pulse Ox 100 F H 94 H 14 146/80 99 10/24/16 00:00 10/24/16 07:00 10/24/16 07:00 10/24/16 06:23 10/24/16 07:00 Intake and Output: 10/24/16 10/24/16 06:59 18:59 Intake Total 516 Output Total 530 Balance -14 - Medications Medications: Current Medications Acetaminophen (Tylenol 650mg/20.3ml Solution Ud) 650 mg PO Q4 PRN PRN Reason: FEVER > 100.4 Artificial Tears (Lacri-Lube) 1 gm OU BID [facility] Last Admin: 10/23/16 17:14 Dose: 1 gm Enoxaparin Sodium (Lovenox) 40 mg SC DAILY [facility] Last Admin: 10/23/16 15:32 Dose: Not Given Ceftriaxone Sodium 2 gm/ (Sodium Chloride) 100 mls @ 100 mls/hr IVPB Q12 [facility] Last Admin: 10/23/16 21:40 Dose: 100 mls/hr Vancomycin/Sodium Chloride (Vancocin) 1 gm in 200 mls @ 133.333 mls/hr IVPB Q12H [facility] Stop: 10/24/16 18:31 Last Admin: 10/24/16 05:54 Dose: 133.333 mls/hr Magnesium Sulfate/Dextrose (Magnesium Sulfate 1 Gm/100 Ml D5w) 1 gm in 100 mls @ 200 mls/hr IVPB ONCE ONE Stop: 10/24/16 09:01 Sodium Phosphate 15 mmole/ (Sodium Chloride) 255 mls @ 50 mls/hr IVPB .Q5H6M ONE Stop: 10/24/16 13:37 Insulin Aspart (Novolog) 0 unit SC Q6 [facility] PRN Reason: Protocol Last Admin: 10/24/16 05:59 Dose: 4 unit Insulin Detemir (Levemir) 40 unit SC Q12 [facility] Last Admin: 10/23/16 21:39 Dose: Not Given Lactulose (Enulose) 20 gm NG BID [facility] Last Admin: 10/22/16 11:00 Dose: Not Given Metoprolol Tartrate (Lopressor) 5 mg IVP BID [facility] Last Admin: 10/23/16 17:14 Dose: 5 mg Pantoprazole Sodium (Protonix Ec Tab) 40 mg PO ACB [facility] - Labs Labs: 10/24/16 06:31 10/24/16 06:31 PT 12.8 SECONDS (9.7-12.2) H 10/24/16 06:31 INR 1.1 10/24/16 06:31 APTT 33 SECONDS (21-34) 10/24/16 06:31 - Constitutional Appears: No Acute Distress - Eye Exam Eye Exam: PERRL - ENT Exam ENT Exam: Mucous Membranes Moist Additional comments: tracheostomy present to vent - Respiratory Exam Respiratory Exam: Rales, Rhonchi. absent: Clear to Ausculation Bilateral, Wheezes - Cardiovascular Exam Cardiovascular Exam: RRR, +S1, +S2 - GI/Abdominal Exam GI & Abdominal Exam: Soft, Normal Bowel Sounds. absent: Distended, Firm, Guarding, Rigid, Tenderness, Organomegaly Additional comments: PEG in LUQ; bumper at 3.5 - advanced to 4.5 - Extremities Exam Extremities Exam: Pedal Edema - Neurological Exam Neurological Exam: absent: CN II-XII Intact, Reflexes Normal Neuro motor strength exam: Left Upper Extremity: 0, Right Upper Extremity: 0, Left Lower Extremity: 0, Right Lower Extremity: 0 - Skin Skin Exam: Dry, Warm Assessment and Plan - Assessment and Plan (Free Text) Assessment: Patient is a 61yo female with PMHx significant for asthma, DM, HTN, HLD who presented to the ED with altered mentation. The patient's son provided much of the history initially as patient required emergent intubation and could not provide history. -Bacterial meningitis -Multifocal ischemic CVA with severe encephalopathy -Respiratory failure -Dysphagia as a result of the above -Multiple electrolyte abnormalities -Obesity -DM -HTN Plan: -S/P PEG placement -Bumper advanced to 4.5 -OK to use for TF starting at noon, appreciate TF recommendations -Can resume anticoagulation -Will sign off, please reconsult if needed. Thank you for allowing us to participate in the care of your patient. <Mik Hoover Y - Last Filed: 10/24/16 15:09> Objective - Vital Signs/Intake and Output Vital Signs (last 24 hours): Temp Pulse Resp BP Pulse Ox 99.2 F 83 22 126/56 L 96 10/24/16 08:57 10/24/16 13:00 10/24/16 13:00 10/24/16 12:23 10/24/16 13:00 Intake and Output: 10/24/16 10/24/16 06:59 18:59 Intake Total 516 590.0 Output Total 530 245 Balance -14 345.0 - Medications Medications: Current Medications Acetaminophen (Tylenol 650mg/20.3ml Solution Ud) 650 mg PO Q4 PRN PRN Reason: FEVER > 100.4 Artificial Tears (Lacri-Lube) 1 gm OU BID [facility] Last Admin: 10/24/16 10:26 Dose: 1 gm Enoxaparin Sodium (Lovenox) 40 mg SC DAILY [facility] Last Admin: 10/24/16 10:23 Dose: 40 mg Ceftriaxone Sodium 2 gm/ (Sodium Chloride) 100 mls @ 100 mls/hr IVPB Q12 [facility] Last Admin: 10/24/16 10:16 Dose: 100 mls/hr Vancomycin/Sodium Chloride (Vancocin) 1 gm in 200 mls @ 133.333 mls/hr IVPB Q12H [facility] Stop: 10/24/16 18:31 Last Admin: 10/24/16 05:54 Dose: 133.333 mls/hr Insulin Aspart (Novolog) 0 unit SC Q6 [facility] PRN Reason: Protocol Last Admin: 10/24/16 12:40 Dose: 4 unit Insulin Detemir (Levemir) 40 unit SC Q12 [facility] Last Admin: 10/24/16 10:29 Dose: 40 unit Lactulose (Enulose) 20 gm NG BID [facility] Last Admin: 10/24/16 10:26 Dose: 20 gm Metoprolol Tartrate (Lopressor) 5 mg IVP BID [facility] Last Admin: 10/24/16 10:25 Dose: 5 mg Pantoprazole Sodium (Protonix Ec Tab) 40 mg PO ACB [facility] Last Admin: 10/24/16 13:25 Dose: 40 mg - Labs Labs: 10/24/16 06:31 10/24/16 06:31 PT 12.8 SECONDS (9.7-12.2) H 10/24/16 06:31 INR 1.1 10/24/16 06:31 APTT 33 SECONDS (21-34) 10/24/16 06:31 Attending/Attestation - Attestation I have personally seen and examined this patient.: Yes I have fully participated in the care of the patient.: Yes I have reviewed all pertinent clinical information, including history, physical exam and plan: Yes Notes (Text): 10/24/16 15:06 I have seen and examined patient with GI fellow. No acute events overnight. She remains responsive only to painful stimuli. There is no reported abdominal pain, vomiting, fever/chills. DM / HTN Obesity Altered mental status - bacterial meningitis, ischemic CVA Respiratory failure s/p tracheostomy Dysphagia s/p PEG placement - PEG site appears clean/dry, bumper adjusted to 4 cm from abdominal wall - Nutrition consultation for tube feeding - May begin feeding via PEG, monitor for residuals - Flush PEG with 30 cc water q8H - No ongoing GI issues, will sign off case. Please reconsult as necessary, thank you.
[2016-10-24] MEDS: cefTRIAXone 2 GM in Sodium Chloride 0.9% 100 ML IVPB SCH ×2 (10:16→21:31)
[2016-10-24] MEDS: Enoxaparin 40 mg Syringe SC SCH (10:23)
[2016-10-24] MEDS: Metoprolol 1 mg/ml Inj IVP SCH ×2 (10:25→18:07)
[2016-10-24] MEDS: White Petrolatum/Mineral Oil Ophth Oint(3.5 gm) OU SCH ×2 (10:26→18:07)
[2016-10-24] MEDS: Insulin Detemir 100 units/ml Vial (Levemir) SC SCH ×2 (10:29→21:30)
[2016-10-24] MEDS: Pantoprazole 40 mg EC Tab PO SCH (13:25)
--- NOTE | 2016-10-24 13:51 | RAD ---
HISTORY: s/p trach COMPARISON: Chest x-ray performed 10/23/16 TECHNIQUE: Chest, one view. FINDINGS: Tracheostomy tube. Right-sided PICC extends the expected location of the cavoatrial junction. Examination markedly limited by habitus, hypoinflation, and patient obliquity. LUNGS: Mild to moderate pulmonary venous congestion. Bilateral hilar prominence. Please note that chest x-ray has limited sensitivity for the detection of pulmonary masses. PLEURA: No significant pleural effusion identified. No definite pneumothorax . CARDIOVASCULAR: Cardiomegaly. OSSEOUS STRUCTURES: Degenerative changes. VISUALIZED UPPER ABDOMEN: Unremarkable. OTHER FINDINGS: None. IMPRESSION: Limited study. Tracheostomy tube. Right-sided PICC. Mild to moderate pulmonary venous congestion. Bilateral hilar prominence.
--- NOTE | 2016-10-24 14:11 | CP.CCUPN ---
<SteveBarak - Last Filed: 10/24/16 14:09> CCU Subjective - Physician Review Subjective (Free Text): 10/21/16 17:24 Patient seen and examined at the bedside. No acute events overnight. No acute distress. Nursing staff reports no issues. Patient remains intubated PRVC (TV 500, Rate 12, PEEP 5, FiO2 30%). No interval status change from previous examination. Today on rounds, the patient was noted to have a free water deficit. Free water flushed were ordered. GI was consulted for PEG placement evaluation, and general surgery was consulted for trach placement evaluation. The patient's prognosis remains poor. 10/22/16 16:40 Patient seen and examined at the bedside. No acute events overnight. No acute distress. Nursing staff reports no issues. Patient remains intubated PRVC (TV 500, Rate 12, PEEP 5, FiO2 30%). No interval status change from previous examination. Patient for trach today with Dr. Rodriguez. Today on rounds, the patient's persistent free water deficit was noted to be improving. The patient's potassium was replaced prior to OR. The patient's prognosis remains poor. 10/23/16 11:11 Patient seen and examined at the bedside. No acute events overnight. No acute distress. Nursing staff reports no issues. Patient is POD #1 s/p trach placement with Dr. Rodriguez. The patient may possibly have a PEG tube placed by GI pending family discussion and consent. The patient is NPO in preparation for the procedure. The patient remains intubated this morning. Today on rounds, the patient was switched from PRVC to CPAP (15/5 at a rate of 12). The patient tolerated the change well. The patients potassium and magnesium were replaced. 10/24/16 14:09 Patient seen and examined at the bedside. No acute events overnight. No acute distress. Nursing staff reports no issues. The patient is tolerating CPAP via trach well. MRI postponed. Today on rounds, the patients tube feeds were restarted at noon, DVT prophylaxis was restarted at 10am, and the patient's magnesium and phosphorous were replaced. Critical Care Time Spent (in minutes): 90 CCU Objective - Vital Signs / Intake & Output Vital Signs (Last 4 hours): Vital Signs Pulse Resp BP Pulse Ox 10/24/16 13:00 83 22 96 10/24/16 12:23 77 21 126/56 L 97 10/24/16 12:00 77 20 96 10/24/16 11:22 67 25 H 104/42 L 97 10/24/16 11:00 69 15 97 10/24/16 10:22 80 13 117/66 98 Intake and Output (Last 8hrs): Intake & Output 10/23/16 10/24/16 10/24/16 22:59 06:59 14:59 Intake Total 674.3 350 590.0 Output Total 470 335 245 Balance 204.3 15 345.0 Weight 101.605 kg Intake: Intake, IV Amount 674.3 200 350.0 Right PICC 674.3 200 350.0 Oral 0 Tube Feeding 40 Other 150 200 Output: Urine 470 335 245 Urethral (Santiago) 470 335 245 - Physical Exam Head: Positive for: Atraumatic, Normocephalic Pupils: Positive for: Sluggish, Other (corneal reflex intact) Mouth: Positive for: Moist Mucous Membranes. Negative for: Dry, Drooling Pharnyx: Positive for: Other (weak cough and gag reflexes) Neck: Negative for: JVD, Lymphadenopathy Respiratory/Chest: Positive for: Good Air Exchange, Rhonchi, Other (intubated). Negative for: Clear to Auscultation, Respiratory Distress, Accessory Muscle Use, Wheezes, Rales Cardiovascular: Positive for: Regular Rate and Rhythm, Normal S1, S2, Peripheal Pulses Present. Negative for: Murmurs Abdomen: Positive for: Tenderness, Normal Bowel Sounds. Negative for: Distention Upper Extremity: Positive for: Normal Inspection, NORMAL PULSES, Neurovascularly Intact, Other (absent withdrawl to painful stimuli) Lower Extremity: Positive for: Normal Inspection, NORMAL PULSES, Neurovascularly Intact, Other (absent withdrawl to painful stimuli) Neurological: Positive for: Other (minimally responsive- opening eyes, absent withdrawal to pain, brainstem reflexes weak, up-going babinski b/l) Skin: Positive for: Warm, Dry - Medications Active Medications: Active Medications Generic Name Dose Route Start Last Admin Trade Name Freq PRN Reason Stop Dose Admin Acetaminophen 650 mg 10/23/16 21:53 Tylenol 650mg/20.3ml Solution Ud PO Q4 PRN FEVER > 100.4 Artificial Tears 1 gm 10/11/16 10:30 10/24/16 10:26 Lacri-Lube OU 1 gm BID MINI Administration Enoxaparin Sodium 40 mg 10/09/16 17:30 10/24/16 10:23 Lovenox SC 40 mg DAILY MINI Administration Ceftriaxone Sodium 2 gm/ 100 mls @ 100 mls/hr 10/10/16 22:00 10/24/16 10:16 Sodium Chloride IVPB 100 mls/hr Q12 MINI Administration Vancomycin/Sodium Chloride 1 gm in 200 mls @ 133.333 mls/hr 10/19/16 18:30 05:54 Vancocin IVPB 10/24/16 18:31 133.333 mls/hr Q12H MINI Administration Insulin Aspart 0 unit 10/17/16 12:00 10/24/16 12:40 Novolog SC 4 unit Q6 MINI Administration Protocol Insulin Detemir 40 unit 10/18/16 10:08 10/24/16 10:29 Levemir SC 40 unit Q12 MINI Administration Lactulose 20 gm 10/12/16 18:00 10/24/16 10:26 Enulose NG 20 gm BID MINI Administration Metoprolol Tartrate 5 mg 10/22/16 18:00 10/24/16 10:25 Lopressor IVP 5 mg BID MINI Administration Pantoprazole Sodium 40 mg 10/24/16 13:15 10/24/16 13:25 Protonix Ec Tab PO 40 mg ACB MINI Administration - Patient Studies Lab Studies: Microbiology Studies 10/19/16 17:30 Blood Culture - Preliminary Blood-Thru Central Line NO GROWTH AFTER 4 DAYS 10/19/16 17:30 Blood Culture - Preliminary Blood-Thru Central Line NO GROWTH AFTER 4 DAYS Lab Studies 10/24/16 10/24/16 10/24/16 Range/Units 11:54 06:31 06:31 WBC (4.8-10.8) K/uL RBC (3.80-5.20) Mil/uL Hgb (11.0-16.0) g/dL Hct (34.0-47.0) % MCV (81.0-99.0) fL MCH (27.0-31.0) pg MCHC (33.0-37.0) g/dL RDW (11.5-14.5) % Plt Count (130-400) K/uL MPV (7.2-11.7) fL Neut % (Auto) (50.0-75.0) % Lymph % (Auto) (20.0-40.0) % [place] % (Auto) (0.0-10.0) % Eos % (Auto) (0.0-4.0) % Baso % (Auto) (0.0-2.0) % Neut # (1.8-7.0) K/uL Lymph # (1.0-4.3) K/uL [place] # (0.0-0.8) K/uL Eos # (0.0-0.7) K/uL Baso # (0.0-0.2) K/uL PT 12.8 H (9.7-12.2) SECONDS INR 1.1 APTT 33 (21-34) SECONDS Puncture Site pCO2 (35-45) mm/Hg pO2 (80-100) mm/Hg HCO3 (21-28) mmol/L ABG pH (7.35-7.45) ABG Total CO2 (22-28) mmol/L ABG O2 Saturation (95-98) % ABG Base Excess (-2.0-3.0) mmol/L ABG Hemoglobin (11.7-17.4) g/dL ABG Carboxyhemoglobin (0.5-1.5) % POC ABG HHb (Measured) (0.0-5.0) % ABG Methemoglobin (0.0-3.0) % Nico Test A-a O2 Difference mm/Hg Respiratory Index Hgb O2 Saturation (95.0-98.0) % Mechanical Rate FiO2 % Tidal Volume PEEP Sodium 142 (132-148) mmol/L Potassium 3.6 (3.6-5.2) mmol/L Chloride 107 (98-107) mmol/L Carbon Dioxide 26 (22-30) mmol/L Anion Gap 12 (10-20) BUN 11 (7-17) mg/dL Creatinine 0.3 L (0.7-1.2) MG/DL Est GFR ( Amer) > 60 Est GFR (Non-Af Amer) > 60 POC Glucose (mg/dL) 238 H (65-110) mg/dL Random Glucose 233 H (65-105) mg/dL Calcium 9.1 (8.6-10.4) mg/dl Phosphorus 2.0 L (2.5-4.5) mg/dL Magnesium 1.8 (1.6-2.3) mg/dL Total Bilirubin 0.9 (0.2-1.3) mg/dL AST 44 H (14-36) U/L ALT 36 (9-52) U/L Alkaline Phosphatase 129 H (38-126) U/L Total Protein 6.6 (6.3-8.3) g/dL Albumin 2.9 L (3.5-5.0) g/dL Globulin 3.7 (2.2-3.9) gm/dL Albumin/Globulin Ratio 0.8 L (1.0-2.1) 10/24/16 10/24/16 10/24/16 Range/Units 06:31 05:43 05:27 WBC 10.0 (4.8-10.8) K/uL RBC 3.72 L (3.80-5.20) Mil/uL Hgb 10.9 L (11.0-16.0) g/dL Hct 33.2 L (34.0-47.0) % MCV 89.4 (81.0-99.0) fL MCH 29.4 (27.0-31.0) pg MCHC 32.9 L (33.0-37.0) g/dL RDW 12.9 (11.5-14.5) % Plt Count 219 (130-400) K/uL MPV 9.2 (7.2-11.7) fL Neut % (Auto) 69.5 (50.0-75.0) % Lymph % (Auto) 22.2 (20.0-40.0) % [place] % (Auto) 5.0 (0.0-10.0) % Eos % (Auto) 2.2 (0.0-4.0) % Baso % (Auto) 1.1 (0.0-2.0) % Neut # 7.0 (1.8-7.0) K/uL Lymph # 2.2 (1.0-4.3) K/uL [place] # 0.5 (0.0-0.8) K/uL Eos # 0.2 (0.0-0.7) K/uL Baso # 0.1 (0.0-0.2) K/uL PT (9.7-12.2) SECONDS INR APTT (21-34) SECONDS Puncture Site Rr pCO2 43 (35-45) mm/Hg pO2 123 H (80-100) mm/Hg HCO3 27.2 (21-28) mmol/L ABG pH 7.42 (7.35-7.45) ABG Total CO2 29.2 H (22-28) mmol/L ABG O2 Saturation 98.5 H (95-98) % ABG Base Excess 3.0 (-2.0-3.0) mmol/L ABG Hemoglobin 10.9 L (11.7-17.4) g/dL ABG Carboxyhemoglobin 1.5 (0.5-1.5) % POC ABG HHb (Measured) 1.5 (0.0-5.0) % ABG Methemoglobin 1.2 (0.0-3.0) % Nico Test Pos A-a O2 Difference 108.0 mm/Hg Respiratory Index 0.9 Hgb O2 Saturation 95.8 (95.0-98.0) % Mechanical Rate 12 FiO2 40.0 % Tidal Volume 500 PEEP 5 Sodium (132-148) mmol/L Potassium (3.6-5.2) mmol/L Chloride (98-107) mmol/L Carbon Dioxide (22-30) mmol/L Anion Gap (10-20) BUN (7-17) mg/dL Creatinine (0.7-1.2) MG/DL Est GFR ( Amer) Est GFR (Non-Af Amer) POC Glucose (mg/dL) 243 H (65-110) mg/dL Random Glucose (65-105) mg/dL Calcium (8.6-10.4) mg/dl Phosphorus (2.5-4.5) mg/dL Magnesium (1.6-2.3) mg/dL Total Bilirubin (0.2-1.3) mg/dL AST (14-36) U/L ALT (9-52) U/L Alkaline Phosphatase (38-126) U/L Total Protein (6.3-8.3) g/dL Albumin (3.5-5.0) g/dL Globulin (2.2-3.9) gm/dL Albumin/Globulin Ratio (1.0-2.1) 06/07/17 06/07/17 Range/Units 23:54 17:52 WBC (4.8-10.8) K/uL RBC (3.80-5.20) Mil/uL Hgb (11.0-16.0) g/dL Hct (34.0-47.0) % MCV (81.0-99.0) fL MCH (27.0-31.0) pg MCHC (33.0-37.0) g/dL RDW (11.5-14.5) % Plt Count (130-400) K/uL MPV (7.2-11.7) fL Neut % (Auto) (50.0-75.0) % Lymph % (Auto) (20.0-40.0) % [place] % (Auto) (0.0-10.0) % Eos % (Auto) (0.0-4.0) % Baso % (Auto) (0.0-2.0) % Neut # (1.8-7.0) K/uL Lymph # (1.0-4.3) K/uL [place] # (0.0-0.8) K/uL Eos # (0.0-0.7) K/uL Baso # (0.0-0.2) K/uL PT (9.7-12.2) SECONDS INR APTT (21-34) SECONDS Puncture Site pCO2 (35-45) mm/Hg pO2 (80-100) mm/Hg HCO3 (21-28) mmol/L ABG pH (7.35-7.45) ABG Total CO2 (22-28) mmol/L ABG O2 Saturation (95-98) % ABG Base Excess (-2.0-3.0) mmol/L ABG Hemoglobin (11.7-17.4) g/dL ABG Carboxyhemoglobin (0.5-1.5) % POC ABG HHb (Measured) (0.0-5.0) % ABG Methemoglobin (0.0-3.0) % Nico Test A-a O2 Difference mm/Hg Respiratory Index Hgb O2 Saturation (95.0-98.0) % Mechanical Rate FiO2 % Tidal Volume PEEP Sodium (132-148) mmol/L Potassium (3.6-5.2) mmol/L Chloride (98-107) mmol/L Carbon Dioxide (22-30) mmol/L Anion Gap (10-20) BUN (7-17) mg/dL Creatinine (0.7-1.2) MG/DL Est GFR ( Amer) Est GFR (Non-Af Amer) POC Glucose (mg/dL) 191 H 264 H (65-110) mg/dL Random Glucose (65-105) mg/dL Calcium (8.6-10.4) mg/dl Phosphorus (2.5-4.5) mg/dL Magnesium (1.6-2.3) mg/dL Total Bilirubin (0.2-1.3) mg/dL AST (14-36) U/L ALT (9-52) U/L Alkaline Phosphatase (38-126) U/L Total Protein (6.3-8.3) g/dL Albumin (3.5-5.0) g/dL Globulin (2.2-3.9) gm/dL Albumin/Globulin Ratio (1.0-2.1) Laboratory Results - last 24 hr 10/23/16 10/23/16 10/24/16 17:52 23:54 05:27 WBC RBC Hgb Hct MCV MCH MCHC RDW Plt Count MPV Neut % (Auto) Lymph % (Auto) [place] % (Auto) Eos % (Auto) Baso % (Auto) Neut # Lymph # [place] # Eos # Baso # PT INR APTT Puncture Site Rr pCO2 43 pO2 123 H HCO3 27.2 ABG pH 7.42 ABG Total CO2 29.2 H ABG O2 Saturation 98.5 H ABG Base Excess 3.0 ABG Hemoglobin 10.9 L ABG Carboxyhemoglobin 1.5 POC ABG HHb (Measured) 1.5 ABG Methemoglobin 1.2 Nico Test Pos A-a O2 Difference 108.0 Respiratory Index 0.9 Hgb O2 Saturation 95.8 Mechanical Rate 12 FiO2 40.0 Tidal Volume 500 PEEP 5 Sodium Potassium Chloride Carbon Dioxide Anion Gap BUN Creatinine Est GFR ( Amer) Est GFR (Non-Af Amer) POC Glucose (mg/dL) 264 H 191 H Random Glucose Calcium Phosphorus Magnesium Total Bilirubin AST ALT Alkaline Phosphatase Total Protein Albumin Globulin Albumin/Globulin Ratio 10/24/16 10/24/16 10/24/16 05:43 06:31 06:31 WBC 10.0 RBC 3.72 L Hgb 10.9 L Hct 33.2 L MCV 89.4 MCH 29.4 MCHC 32.9 L RDW 12.9 Plt Count 219 MPV 9.2 Neut % (Auto) 69.5 Lymph % (Auto) 22.2 [place] % (Auto) 5.0 Eos % (Auto) 2.2 Baso % (Auto) 1.1 Neut # 7.0 Lymph # 2.2 [place] # 0.5 Eos # 0.2 Baso # 0.1 PT 12.8 H INR 1.1 APTT 33 Puncture Site pCO2 pO2 HCO3 ABG pH ABG Total CO2 ABG O2 Saturation ABG Base Excess ABG Hemoglobin ABG Carboxyhemoglobin POC ABG HHb (Measured) ABG Methemoglobin Nico Test A-a O2 Difference Respiratory Index Hgb O2 Saturation Mechanical Rate FiO2 Tidal Volume PEEP Sodium Potassium Chloride Carbon Dioxide Anion Gap BUN Creatinine Est GFR ( Amer) Est GFR (Non-Af Amer) POC Glucose (mg/dL) 243 H Random Glucose Calcium Phosphorus Magnesium Total Bilirubin AST ALT Alkaline Phosphatase Total Protein Albumin Globulin Albumin/Globulin Ratio 10/24/16 10/24/16 06:31 11:54 WBC RBC Hgb Hct MCV MCH MCHC RDW Plt Count MPV Neut % (Auto) Lymph % (Auto) [place] % (Auto) Eos % (Auto) Baso % (Auto) Neut # Lymph # [place] # Eos # Baso # PT INR APTT Puncture Site pCO2 pO2 HCO3 ABG pH ABG Total CO2 ABG O2 Saturation ABG Base Excess ABG Hemoglobin ABG Carboxyhemoglobin POC ABG HHb (Measured) ABG Methemoglobin Nico Test A-a O2 Difference Respiratory Index Hgb O2 Saturation Mechanical Rate FiO2 Tidal Volume PEEP Sodium 142 Potassium 3.6 Chloride 107 Carbon Dioxide 26 Anion Gap 12 BUN 11 Creatinine 0.3 L Est GFR ( Amer) > 60 Est GFR (Non-Af Amer) > 60 POC Glucose (mg/dL) 238 H Random Glucose 233 H Calcium 9.1 Phosphorus 2.0 L Magnesium 1.8 Total Bilirubin 0.9 AST 44 H ALT 36 Alkaline Phosphatase 129 H Total Protein 6.6 Albumin 2.9 L Globulin 3.7 Albumin/Globulin Ratio 0.8 L Fingerstick Blood Sugar Results: 238 Review of Systems - Review of Systems Systems not reviewed;Unavailable: Intubated Critical Care Progress Note - Ventilator Checklist Head of Bed 30 Degrees: Yes - Vent Settings MODE:: CPAP FIO2:: 40 PEEP:: 5 PRESSURE SUPPORT:: 10 - Extremities/Vascular Does the Patient have a Central Venous Catheter?: Yes Insertion Site: R PICC Does the Patient need a Central Venous Catheter?: Yes Does the Patient have a Santiago Catheter?: Yes Does the Patient need a Santiago Catheter?: Yes Catheter Insertion Criteria: Patient requires prolonged immobilization - Prophylaxis GI Prophylaxis GI: PPI - Prophylaxis DVT Prophylaxis DVT: Lovenox - Nutrition Nutrition: Nutrition Category Date Time Status NPO Diet [DIET] Diets 10/23/16 Breakfast Active Assessment/Plan (1) Acute respiratory failure Current Visit: Yes Status: Acute (2) Bacterial meningoencephalitis Current Visit: Yes Status: Acute - Assessment and Plan (Free Text) Plan: Patient Status: No acute change. Stable s/p trach with Dr. Rodriguez. Possible PEG placement today with GI. Consent pending family discussion. Neuro: -Bacterial Meningitis -Intact brainstem reflexes- weak -Intubated -Dr. Moulton on case -Imaging: : 10/21/16 CT Head- Examination limited by motion. Nonspecific white matter changes and hypodensities predominantly involving kearney radiata and centrum semiovale bilaterally as above concerning for multifocal ischemia. Opacification of bilateral sphenoid sinuses. Mucosal thickening of the right frontal sinus. Mucosal thickening of the ethmoid air cells. Correlate clinically for sinusitis. Examination limited by mastoid air cells ; correlate clinically for otomastoiditis. : 10/12/16 CT Head- 1. Study is markedly limited by motion artifact. 2. Abnormal low density changes within the kearney radiata and centrum semiovale bilaterally more conspicuous than on the previous 10/09/2016. Study is concerning for multifocal ischemia. 3. Acute sinusitis involving the ethmoid, sphenoid and frontal sinuses. : 10/10/[address]- Limited study. The opacification of the distal internal carotid arteries and intracranial arteries is limited. Segmental mild- to-moderate stenosis at the distal right internal carotid arteries. Moderate diffuse atherosclerotic disease. The right middle cerebral artery is smaller than the left demonstrates diffuse irregularity. The distal right vertebral artery is smaller than the left. Pansinusitis. Complete opacification of the right frontal sinus. Focal defect seen in the posterior wall of the right frontal sinus without definite evidence of abscess formation in the intracranial frontal fossa. The possibility of infection spread into the intracranial fossa is not totally excluded in this exam. : 10/09/16 CT Head- No evidence of acute infarct. No intracranial mass or hemorrhage. Chronic microvascular white matter ischemic change. Chronic paranasal sinusitis. Nonspecific bilateral mastoid effusion. : 10/08/16 CT Head- Extensive bibasilar consolidation. No evidence of pulmonary embolism. : 10/08/16 CT Head- 1. No definite acute intracranial abnormality. Acute infarction may be CT occult within first 24 hours. If a focal deficit persists , consider followup CT or MRI for further evaluation. 2. Sinus disease. Cardiovascular: -Hemodynamically stable -Lopressor 5mg IV BID Pulmonary: -POD #2 s/p trach placement with Dr. Rodriguez -CPAP- 30/09 rate 12- tolerating well -Imaging : 10/24/16 CXR- Limited study. Tracheostomy tube. Right-sided PICC. Mild to moderate pulmonary venous congestion. Bilateral hilar prominence. : 10/23/16 CXR- Tracheostomy tube in place. Moderate venous congestion. Patchy consolidative markings at the right lung base may represent underlying infiltrate and or atelectasis. Milder patchy increased markings at the left lung base. Bilateral hilar prominence. Mild cardiomegaly. Degenerative changes in the spine and shoulders. : 10/22/16 CXR- Satisfactory position of tracheostomy device. No active pulmonary disease. : 10/22/16 CXR- Moderate venous congestion. Bibasilar airspace opacification. Right hilar and infrahilar consolidative changes. Biapical pleural thickening with upper lobe granulomatous changes. Cardiomegaly. : 10/21/16 CXR- No active disease. Lines and tubes unchanged. : 10/20/16 CXR- In situ ETT, tip of which lies approximately 5.65 cm above pia. NGT is present, the tip of which has not been included on this film though distal aspect does lie below EG junction. Right-sided PICC line with tip in the SVC. Bibasilar atelectatic changes are felt to be present. : 10/19/16 CXR- ETT, NGT and right-sided PICC line as above. Patchy left lower lobe atelectasis and or infiltrate. : 10/18/16 CXR- Right sided PICC line with tip SVC. Right IJ central venous line is also present the tip in the SVC as well. In situ ETT, tip of which lies approximately 4.6 cm above pai. NGT is present, the, tip of which has not been included on this film though distal aspect does lie well below EG junction. Vague patchy opacity in the left mid to lower lung field could represent developing atelectasis and or infiltrate. Suspect minor right basilar atelectasis. : 10/17/16 CXR- Moderate venous congestion. Patchy consolidative changes at both lung bases; right greater than left. Small left pleural effusion. Biapical pleural thickening with upper lobe granulomatous changes. Cardiomegaly. -ABG : 10/24/16- CO2= 43 / O2= 123 / HCO3=27.2 / pH= 7.42 : 10/23/16- CO2= 47 / O2= 124 / HCO3=28.4 / pH= 7.41 : 10/22/16- CO2= 45 / O2=78 / HCO3=31.8 / pH= 7.48 : 10/21/16- CO2= 44 / O2=72 / HCO3=32.0 / pH= 7.49 : 10/20/16- CO2= 45 / O2=78 / HCO3=33.1 / pH= 7.50 : 10/19/16- CO2= 43 / O2=62 / HCO3=32.1 / pH= 7.50 : 10/18/16- CO2= 44 / O2=74 / HCO3=29.6 / pH= 7.46 : 10/17/16- CO2= 46 / O2=78 / HCO3=32.1 / pH= 7.48 Gastrointestinal: -POD#1 s/p PEG Tube placement -Resume tube feeds- diabetisource goal rate 70ml/hr Hematology: -No issues Endocrine: -Insulin 40u SC daily -Novolin sliding scale Renal: -Hypophosphatemia- replaced with 15mmol sodium phosphate IV -Hypomagnesemia- replaced with 1g IV -Monitor I&Os Musculoskeletal: -None Genitourinary: -No issues -Voiding well Infectious Disease: -Bacterial Meningitis -Dr. Long Following -Vancomycin 1g IV q12 day 6 -Ceftriaxone 2g IV q12 Day 15 GI Prophylaxis: Protonix 40mg PO daily DVT Prophylaxis: Lovenox 40mg SC Daily Case Discussed with Dr. Janina Wilson PGY1 - Date & Time Date: 10/24/16 Time: 14:20 <Jack Roa - Last Filed: 10/24/16 14:59> CCU Objective - Vital Signs / Intake & Output Vital Signs (Last 4 hours): Vital Signs Pulse Resp BP Pulse Ox 10/24/16 13:00 83 22 96 10/24/16 12:23 77 21 126/56 L 97 10/24/16 12:00 77 20 96 10/24/16 11:22 67 25 H 104/42 L 97 10/24/16 11:00 69 15 97 Intake and Output (Last 8hrs): Intake & Output 10/23/16 10/24/16 10/24/16 22:59 06:59 14:59 Intake Total 674.3 350 590.0 Output Total 470 335 245 Balance 204.3 15 345.0 Weight 224 lb Intake: Intake, IV Amount 674.3 200 350.0 Right PICC 674.3 200 350.0 Oral 0 Tube Feeding 40 Other 150 200 Output: Urine 470 335 245 Urethral (Santiago) 470 335 245 - Medications Active Medications: Active Medications Generic Name Dose Route Start Last Admin Trade Name Freq PRN Reason Stop Dose Admin Acetaminophen 650 mg 10/23/16 21:53 Tylenol 650mg/20.3ml Solution Ud PO Q4 PRN FEVER > 100.4 Artificial Tears 1 gm 10/11/16 10:30 10/24/16 10:26 Lacri-Lube OU 1 gm BID MINI Administration Enoxaparin Sodium 40 mg 10/09/16 17:30 10/24/16 10:23 Lovenox SC 40 mg DAILY MINI Administration Ceftriaxone Sodium 2 gm/ 100 mls @ 100 mls/hr 10/10/16 22:00 10/24/16 10:16 Sodium Chloride IVPB 100 mls/hr Q12 MINI Administration Vancomycin/Sodium Chloride 1 gm in 200 mls @ 133.333 mls/hr 10/19/16 18:30 05:54 Vancocin IVPB 10/24/16 18:31 133.333 mls/hr Q12H MINI Administration Insulin Aspart 0 unit 10/17/16 12:00 10/24/16 12:40 Novolog SC 4 unit Q6 MINI Administration Protocol Insulin Detemir 40 unit 10/18/16 10:08 10/24/16 10:29 Levemir SC 40 unit Q12 MINI Administration Lactulose 20 gm 10/12/16 18:00 10/24/16 10:26 Enulose NG 20 gm BID MINI Administration Metoprolol Tartrate 5 mg 10/22/16 18:00 10/24/16 10:25 Lopressor IVP 5 mg BID MINI Administration Pantoprazole Sodium 40 mg 10/24/16 13:15 10/24/16 13:25 Protonix Ec Tab PO 40 mg ACB MINI Administration - Patient Studies Lab Studies: Microbiology Studies 10/19/16 17:30 Blood Culture - Preliminary Blood-Thru Central Line NO GROWTH AFTER 4 DAYS 10/19/16 17:30 Blood Culture - Preliminary Blood-Thru Central Line NO GROWTH AFTER 4 DAYS Lab Studies 10/24/16 10/24/16 10/24/16 Range/Units 11:54 06:31 06:31 WBC (4.8-10.8) K/uL RBC (3.80-5.20) Mil/uL Hgb (11.0-16.0) g/dL Hct (34.0-47.0) % MCV (81.0-99.0) fL MCH (27.0-31.0) pg MCHC (33.0-37.0) g/dL RDW (11.5-14.5) % Plt Count (130-400) K/uL MPV (7.2-11.7) fL Neut % (Auto) (50.0-75.0) % Lymph % (Auto) (20.0-40.0) % [place] % (Auto) (0.0-10.0) % Eos % (Auto) (0.0-4.0) % Baso % (Auto) (0.0-2.0) % Neut # (1.8-7.0) K/uL Lymph # (1.0-4.3) K/uL [place] # (0.0-0.8) K/uL Eos # (0.0-0.7) K/uL Baso # (0.0-0.2) K/uL PT 12.8 H (9.7-12.2) SECONDS INR 1.1 APTT 33 (21-34) SECONDS Puncture Site pCO2 (35-45) mm/Hg pO2 (80-100) mm/Hg HCO3 (21-28) mmol/L ABG pH (7.35-7.45) ABG Total CO2 (22-28) mmol/L ABG O2 Saturation (95-98) % ABG Base Excess (-2.0-3.0) mmol/L ABG Hemoglobin (11.7-17.4) g/dL ABG Carboxyhemoglobin (0.5-1.5) % POC ABG HHb (Measured) (0.0-5.0) % ABG Methemoglobin (0.0-3.0) % Nico Test A-a O2 Difference mm/Hg Respiratory Index Hgb O2 Saturation (95.0-98.0) % Mechanical Rate FiO2 % Tidal Volume PEEP Sodium 142 (132-148) mmol/L Potassium 3.6 (3.6-5.2) mmol/L Chloride 107 (98-107) mmol/L Carbon Dioxide 26 (22-30) mmol/L Anion Gap 12 (10-20) BUN 11 (7-17) mg/dL Creatinine 0.3 L (0.7-1.2) MG/DL Est GFR ( Amer) > 60 Est GFR (Non-Af Amer) > 60 POC Glucose (mg/dL) 238 H (65-110) mg/dL Random Glucose 233 H (65-105) mg/dL Calcium 9.1 (8.6-10.4) mg/dl Phosphorus 2.0 L (2.5-4.5) mg/dL Magnesium 1.8 (1.6-2.3) mg/dL Total Bilirubin 0.9 (0.2-1.3) mg/dL AST 44 H (14-36) U/L ALT 36 (9-52) U/L Alkaline Phosphatase 129 H (38-126) U/L Total Protein 6.6 (6.3-8.3) g/dL Albumin 2.9 L (3.5-5.0) g/dL Globulin 3.7 (2.2-3.9) gm/dL Albumin/Globulin Ratio 0.8 L (1.0-2.1) 10/24/16 10/24/16 10/24/16 Range/Units 06:31 05:43 05:27 WBC 10.0 (4.8-10.8) K/uL RBC 3.72 L (3.80-5.20) Mil/uL Hgb 10.9 L (11.0-16.0) g/dL Hct 33.2 L (34.0-47.0) % MCV 89.4 (81.0-99.0) fL MCH 29.4 (27.0-31.0) pg MCHC 32.9 L (33.0-37.0) g/dL RDW 12.9 (11.5-14.5) % Plt Count 219 (130-400) K/uL MPV 9.2 (7.2-11.7) fL Neut % (Auto) 69.5 (50.0-75.0) % Lymph % (Auto) 22.2 (20.0-40.0) % [place] % (Auto) 5.0 (0.0-10.0) % Eos % (Auto) 2.2 (0.0-4.0) % Baso % (Auto) 1.1 (0.0-2.0) % Neut # 7.0 (1.8-7.0) K/uL Lymph # 2.2 (1.0-4.3) K/uL [place] # 0.5 (0.0-0.8) K/uL Eos # 0.2 (0.0-0.7) K/uL Baso # 0.1 (0.0-0.2) K/uL PT (9.7-12.2) SECONDS INR APTT (21-34) SECONDS Puncture Site Rr pCO2 43 (35-45) mm/Hg pO2 123 H (80-100) mm/Hg HCO3 27.2 (21-28) mmol/L ABG pH 7.42 (7.35-7.45) ABG Total CO2 29.2 H (22-28) mmol/L ABG O2 Saturation 98.5 H (95-98) % ABG Base Excess 3.0 (-2.0-3.0) mmol/L ABG Hemoglobin 10.9 L (11.7-17.4) g/dL ABG Carboxyhemoglobin 1.5 (0.5-1.5) % POC ABG HHb (Measured) 1.5 (0.0-5.0) % ABG Methemoglobin 1.2 (0.0-3.0) % Nico Test Pos A-a O2 Difference 108.0 mm/Hg Respiratory Index 0.9 Hgb O2 Saturation 95.8 (95.0-98.0) % Mechanical Rate 12 FiO2 40.0 % Tidal Volume 500 PEEP 5 Sodium (132-148) mmol/L Potassium (3.6-5.2) mmol/L Chloride (98-107) mmol/L Carbon Dioxide (22-30) mmol/L Anion Gap (10-20) BUN (7-17) mg/dL Creatinine (0.7-1.2) MG/DL Est GFR ( Amer) Est GFR (Non-Af Amer) POC Glucose (mg/dL) 243 H (65-110) mg/dL Random Glucose (65-105) mg/dL Calcium (8.6-10.4) mg/dl Phosphorus (2.5-4.5) mg/dL Magnesium (1.6-2.3) mg/dL Total Bilirubin (0.2-1.3) mg/dL AST (14-36) U/L ALT (9-52) U/L Alkaline Phosphatase (38-126) U/L Total Protein (6.3-8.3) g/dL Albumin (3.5-5.0) g/dL Globulin (2.2-3.9) gm/dL Albumin/Globulin Ratio (1.0-2.1) 10/23/16 10/23/16 Range/Units 23:54 17:52 WBC (4.8-10.8) K/uL RBC (3.80-5.20) Mil/uL Hgb (11.0-16.0) g/dL Hct (34.0-47.0) % MCV (81.0-99.0) fL MCH (27.0-31.0) pg MCHC (33.0-37.0) g/dL RDW (11.5-14.5) % Plt Count (130-400) K/uL MPV (7.2-11.7) fL Neut % (Auto) (50.0-75.0) % Lymph % (Auto) (20.0-40.0) % [place] % (Auto) (0.0-10.0) % Eos % (Auto) (0.0-4.0) % Baso % (Auto) (0.0-2.0) % Neut # (1.8-7.0) K/uL Lymph # (1.0-4.3) K/uL [place] # (0.0-0.8) K/uL Eos # (0.0-0.7) K/uL Baso # (0.0-0.2) K/uL PT (9.7-12.2) SECONDS INR APTT (21-34) SECONDS Puncture Site pCO2 (35-45) mm/Hg pO2 (80-100) mm/Hg HCO3 (21-28) mmol/L ABG pH (7.35-7.45) ABG Total CO2 (22-28) mmol/L ABG O2 Saturation (95-98) % ABG Base Excess (-2.0-3.0) mmol/L ABG Hemoglobin (11.7-17.4) g/dL ABG Carboxyhemoglobin (0.5-1.5) % POC ABG HHb (Measured) (0.0-5.0) % ABG Methemoglobin (0.0-3.0) % Nico Test A-a O2 Difference mm/Hg Respiratory Index Hgb O2 Saturation (95.0-98.0) % Mechanical Rate FiO2 % Tidal Volume PEEP Sodium (132-148) mmol/L Potassium (3.6-5.2) mmol/L Chloride (98-107) mmol/L Carbon Dioxide (22-30) mmol/L Anion Gap (10-20) BUN (7-17) mg/dL Creatinine (0.7-1.2) MG/DL Est GFR ( Amer) Est GFR (Non-Af Amer) POC Glucose (mg/dL) 191 H 264 H (65-110) mg/dL Random Glucose (65-105) mg/dL Calcium (8.6-10.4) mg/dl Phosphorus (2.5-4.5) mg/dL Magnesium (1.6-2.3) mg/dL Total Bilirubin (0.2-1.3) mg/dL AST (14-36) U/L ALT (9-52) U/L Alkaline Phosphatase (38-126) U/L Total Protein (6.3-8.3) g/dL Albumin (3.5-5.0) g/dL Globulin (2.2-3.9) gm/dL Albumin/Globulin Ratio (1.0-2.1) Laboratory Results - last 24 hr 10/23/16 10/23/16 10/24/16 17:52 23:54 05:27 WBC RBC Hgb Hct MCV MCH MCHC RDW Plt Count MPV Neut % (Auto) Lymph % (Auto) [place] % (Auto) Eos % (Auto) Baso % (Auto) Neut # Lymph # [place] # Eos # Baso # PT INR APTT Puncture Site Rr pCO2 43 pO2 123 H HCO3 27.2 ABG pH 7.42 ABG Total CO2 29.2 H ABG O2 Saturation 98.5 H ABG Base Excess 3.0 ABG Hemoglobin 10.9 L ABG Carboxyhemoglobin 1.5 POC ABG HHb (Measured) 1.5 ABG Methemoglobin 1.2 Nico Test Pos A-a O2 Difference 108.0 Respiratory Index 0.9 Hgb O2 Saturation 95.8 Mechanical Rate 12 FiO2 40.0 Tidal Volume 500 PEEP 5 Sodium Potassium Chloride Carbon Dioxide Anion Gap BUN Creatinine Est GFR ( Amer) Est GFR (Non-Af Amer) POC Glucose (mg/dL) 264 H 191 H Random Glucose Calcium Phosphorus Magnesium Total Bilirubin AST ALT Alkaline Phosphatase Total Protein Albumin Globulin Albumin/Globulin Ratio 10/24/16 10/24/16 10/24/16 05:43 06:31 06:31 WBC 10.0 RBC 3.72 L Hgb 10.9 L Hct 33.2 L MCV 89.4 MCH 29.4 MCHC 32.9 L RDW 12.9 Plt Count 219 MPV 9.2 Neut % (Auto) 69.5 Lymph % (Auto) 22.2 [place] % (Auto) 5.0 Eos % (Auto) 2.2 Baso % (Auto) 1.1 Neut # 7.0 Lymph # 2.2 [place] # 0.5 Eos # 0.2 Baso # 0.1 PT 12.8 H INR 1.1 APTT 33 Puncture Site pCO2 pO2 HCO3 ABG pH ABG Total CO2 ABG O2 Saturation ABG Base Excess ABG Hemoglobin ABG Carboxyhemoglobin POC ABG HHb (Measured) ABG Methemoglobin Nico Test A-a O2 Difference Respiratory Index Hgb O2 Saturation Mechanical Rate FiO2 Tidal Volume PEEP Sodium Potassium Chloride Carbon Dioxide Anion Gap BUN Creatinine Est GFR ( Amer) Est GFR (Non-Af Amer) POC Glucose (mg/dL) 243 H Random Glucose Calcium Phosphorus Magnesium Total Bilirubin AST ALT Alkaline Phosphatase Total Protein Albumin Globulin Albumin/Globulin Ratio 10/24/16 10/24/16 06:31 11:54 WBC RBC Hgb Hct MCV MCH MCHC RDW Plt Count MPV Neut % (Auto) Lymph % (Auto) [place] % (Auto) Eos % (Auto) Baso % (Auto) Neut # Lymph # [place] # Eos # Baso # PT INR APTT Puncture Site pCO2 pO2 HCO3 ABG pH ABG Total CO2 ABG O2 Saturation ABG Base Excess ABG Hemoglobin ABG Carboxyhemoglobin POC ABG HHb (Measured) ABG Methemoglobin Nico Test A-a O2 Difference Respiratory Index Hgb O2 Saturation Mechanical Rate FiO2 Tidal Volume PEEP Sodium 142 Potassium 3.6 Chloride 107 Carbon Dioxide 26 Anion Gap 12 BUN 11 Creatinine 0.3 L Est GFR ( Amer) > 60 Est GFR (Non-Af Amer) > 60 POC Glucose (mg/dL) 238 H Random Glucose 233 H Calcium 9.1 Phosphorus 2.0 L Magnesium 1.8 Total Bilirubin 0.9 AST 44 H ALT 36 Alkaline Phosphatase 129 H Total Protein 6.6 Albumin 2.9 L Globulin 3.7 Albumin/Globulin Ratio 0.8 L Critical Care Progress Note - Nutrition Nutrition: Nutrition Category Date Time Status NPO Diet [DIET] Diets 10/23/16 Breakfast Active Attending/Attestation - Attestation I have personally seen and examined this patient.: Yes I have fully participated in the care of the patient.: Yes I have reviewed all pertinent clinical information: Yes Notes (Text): 10/24/16 14:57 I have seen and examined the patient. Medical records, lab studies, and imaging were reviewed by me and a management plan was formulated on multidisciplinary rounds with resident Dr. Wilson. I agree with their above documented assessment and plan. Patient showing no signs of improvement in mental status. Comatose state. Obtaining MRI is technically difficult at this point and would not alter current management, it would mostly help for prognostication. Her prognosis based on clinical signs is extremely poor. The patient is trach'd and PEG'd and is stable for transfer to [facility]. Critical Care Time 35 minutes. Multi-disciplinary rounds were performed with house staff, nursing, speech therapy, respiratory therapy, pharmacy and nutrition with integrated input from the primary team/attending and other consulting services. The documented time is cumulative and includes review of patient data/exams/labs/chart review and examination of the patient on rounds and throughout the day; time is exclusive of any procedures or teaching time.
--- NOTE | 2016-10-24 18:51 | CP.PCM.PN ---
Subjective - Date & Time of Evaluation Date of Evaluation: 10/24/16 Time of Evaluation: 11:30 - Subjective Subjective: Mrs. Caraballo was seen and examined in the ICU at bedside. She was in NAD, but not responsive. She did open eyes spontaneously. Otherwise no movements and no response to pain. Objective - Vital Signs/Intake and Output Vital Signs (last 24 hours): Temp Pulse Resp BP Pulse Ox 99.9 F H 90 24 131/55 L 92 L 10/24/16 16:05 10/24/16 16:07 10/24/16 16:07 10/24/16 16:07 10/24/16 16:07 Intake and Output: 10/24/16 10/24/16 06:59 18:59 Intake Total 516 660 Output Total 530 505 Balance -14 155 - Medications Medications: Current Medications Acetaminophen (Tylenol 650mg/20.3ml Solution Ud) 650 mg PO Q4 PRN PRN Reason: FEVER > 100.4 Artificial Tears (Lacri-Lube) 1 gm OU BID [facility] Last Admin: 10/24/16 18:07 Dose: 1 gm Enoxaparin Sodium (Lovenox) 40 mg SC DAILY [facility] Last Admin: 10/24/16 10:23 Dose: 40 mg Ceftriaxone Sodium 2 gm/ (Sodium Chloride) 100 mls @ 100 mls/hr IVPB Q12 [facility] Last Admin: 10/24/16 10:16 Dose: 100 mls/hr Insulin Aspart (Novolog) 0 unit SC Q6 MINI PRN Reason: Protocol Last Admin: 10/24/16 18:09 Dose: 2 unit Insulin Detemir (Levemir) 40 unit SC Q12 [facility] Last Admin: 10/24/16 10:29 Dose: 40 unit Lactulose (Enulose) 20 gm NG BID [facility] Last Admin: 10/24/16 18:06 Dose: 20 gm Metoprolol Tartrate (Lopressor) 5 mg IVP BID [facility] Last Admin: 10/24/16 18:07 Dose: 5 mg Pantoprazole Sodium (Protonix Ec Tab) 40 mg PO ACB [facility] Last Admin: 10/24/16 13:25 Dose: 40 mg - Labs Labs: 10/24/16 06:31 10/24/16 06:31 PT 12.8 SECONDS (9.7-12.2) H 10/24/16 06:31 INR 1.1 10/24/16 06:31 APTT 33 SECONDS (21-34) 10/24/16 06:31 - Neurological Exam Neuro motor strength exam: Left Upper Extremity: 0, Right Upper Extremity: 0, Left Lower Extremity: 0, Right Lower Extremity: 0 Additional comments: Neurologically unchanged compared to previous examination. Assessment and Plan (1) Bacterial meningoencephalitis Assessment & Plan: Continue current management and discuss poor prognosis with family. Status: Acute
[2016-10-25] MEDS: (Novolog) Insulin Aspart, Recombinant 100 u/ml 10 ml vial SC SCH ×4 (00:14→18:27)
[2016-10-25 05:59] LABS: ABG ALLEN TEST POS; ARTERIAL BLOOD HGB O2 SAT 96.4 % (95.0-98.0); ATERIAL BLOOD GAS PEEP 5; CARBOXYHEMOGLOBIN 1.3 % (0.5-1.5); DRAW SITE RR; HHB 1.5 % (0.0-5.0); METHEMOGLOBIN 0.7 % (0.0-3.0)
[2016-10-25 06:23] LABS: BASO # 0.1 K/uL (0.0-0.2); BASO % 0.5 % (0.0-2.0); EOS # 0.2 K/uL (0.0-0.7); HEMATOCRIT 32.1 % (34.0-47.0); LYMPH # 2.1 K/uL (1.0-4.3); MEAN CELL VOLUME 88.8 fL (81.0-99.0); MEAN CORPUSCULAR HEMOGLOBIN 29.2 pg (27.0-31.0); MEAN CORPUSCULAR HGB CONC 32.9 g/dL (33.0-37.0); MEAN PLATELET VOLUME 9.1 fL (7.2-11.7); MONO # 0.7 K/uL (0.0-0.8); MONO % 6.4 % (0.0-10.0); RED CELL DISTRIBUTION WIDTH 13.5 % (11.5-14.5); WHITE BLOOD COUNT 11.1 K/uL (4.8-10.8)
[2016-10-25] MEDS ORDERED: Vancomycin 1 gm/NS 200 ml 1 GM/200 ML BAG IVPB SCH (06:30)
[2016-10-25 06:36] LABS: INR 1.2
[2016-10-25 06:44] LABS: CHLORIDE 108 mmol/L (98-107)
[2016-10-25 06:45] LABS: POTASSIUM 3.3 mmol/L (3.6-5.2); SODIUM 143 mmol/L (132-148)
[2016-10-25 06:47] LABS: ALB/GLOB RATIO 0.8 (1.0-2.1); ALKALINE PHOSPHATASE 126 U/L (38-126); ALT/SGPT 29 U/L (9-52); AST/SGOT 34 U/L (14-36); BILIRUBIN,TOTAL 0.7 mg/dL (0.2-1.3); BLOOD UREA NITROGEN 12 mg/dL (7-17); CARBON DIOXIDE 29 mmol/L (22-30); GFR AFRICAN-AMERICAN > 60; TOTAL PROTEIN 6.6 g/dL (6.3-8.3)
[2016-10-25 06:48] LABS: CALCIUM 9.3 mg/dl (8.6-10.4); GLUCOSE,RANDOM 146 mg/dL (65-105); MAGNESIUM 1.9 mg/dL (1.6-2.3); PHOSPHOROUS 2.3 mg/dL (2.5-4.5)
[2016-10-25] MEDS ORDERED: Sodium Phosphate 15 MMOLE in Sodium Chloride 0.9% 250 ML IVPB ONE (07:34)
[2016-10-25] MEDS ORDERED: Magnesium Sulfate 1 gm in D5W 1 GM/100 ML BAG IVPB ONE (07:34)
[2016-10-25] MEDS ORDERED: Potassium Chloride 20 mEq/15 ml LIQ UD PEG ONE (07:35)
--- NOTE | 2016-10-25 07:35 | CP.CCUPN ---
CCU Subjective - Physician Review Subjective (Free Text): 10/21/16 17:24 Patient seen and examined at the bedside. No acute events overnight. No acute distress. Nursing staff reports no issues. Patient remains intubated PRVC (TV 500, Rate 12, PEEP 5, FiO2 30%). No interval status change from previous examination. Today on rounds, the patient was noted to have a free water deficit. Free water flushed were ordered. GI was consulted for PEG placement evaluation, and general surgery was consulted for trach placement evaluation. The patient's prognosis remains poor. 10/22/16 16:40 Patient seen and examined at the bedside. No acute events overnight. No acute distress. Nursing staff reports no issues. Patient remains intubated PRVC (TV 500, Rate 12, PEEP 5, FiO2 30%). No interval status change from previous examination. Patient for trach today with Dr. Rodriguez. Today on rounds, the patient's persistent free water deficit was noted to be improving. The patient's potassium was replaced prior to OR. The patient's prognosis remains poor. 10/23/16 11:11 Patient seen and examined at the bedside. No acute events overnight. No acute distress. Nursing staff reports no issues. Patient is POD #1 s/p trach placement with Dr. Rodriguez. The patient may possibly have a PEG tube placed by GI pending family discussion and consent. The patient is NPO in preparation for the procedure. The patient remains intubated this morning. Today on rounds, the patient was switched from PRVC to CPAP (15/5 at a rate of 12). The patient tolerated the change well. The patients potassium and magnesium were replaced. 10/24/16 14:09 Patient seen and examined at the bedside. No acute events overnight. No acute distress. Nursing staff reports no issues. The patient is tolerating CPAP via trach well. MRI postponed. Today on rounds, the patients tube feeds were restarted at noon, DVT prophylaxis was restarted at 10am, and the patient's magnesium and phosphorous were replaced. 10/25/16 07:33 Patient seen and examined at the bedside. No acute events overnight. No acute distress. Nursing staff reports no issues. Tolerating daily CPAP currently. The patient remains clinically unchanged from prior examinations. Today on rounds, the patient's potassium, magnesium, and phosphorous were replaced. The patient is currently tolerating CPAP 6/5. Critical Care Time Spent (in minutes): 90 CCU Objective - Vital Signs / Intake & Output Vital Signs (Last 4 hours): Vital Signs Temp Pulse Resp BP Pulse Ox 10/25/16 07:06 69 23 113/55 L 99 10/25/16 07:00 75 23 100 10/25/16 06:06 67 22 126/60 100 10/25/16 06:00 71 20 100 10/25/16 05:06 82 19 143/65 100 10/25/16 05:00 97 H 23 95 10/25/16 04:06 77 15 125/61 100 10/25/16 04:00 99.4 F 87 14 100 Intake and Output (Last 8hrs): Intake & Output 10/24/16 10/25/16 10/25/16 22:59 06:59 14:59 Intake Total 510 600 60 Output Total 616 505 Balance -106 95 60 Weight 96.615 kg Intake: Intake, IV Amount 100 200 Right PICC 100 200 Tube Feeding 260 400 60 Other 150 Output: Urine 615 505 Urethral (Santiago) 615 505 Stool 1 Other: # Bowel Movements 1 - Physical Exam Head: Positive for: Atraumatic, Normocephalic Pupils: Positive for: Sluggish, Other (corneal reflex intact) Mouth: Positive for: Moist Mucous Membranes. Negative for: Dry, Drooling Pharnyx: Positive for: Other (weak cough and gag reflexes) Neck: Positive for: Other (trach). Negative for: JVD, Lymphadenopathy Respiratory/Chest: Positive for: Good Air Exchange, Rhonchi, Other (intubated). Negative for: Clear to Auscultation, Respiratory Distress, Accessory Muscle Use, Wheezes, Rales Cardiovascular: Positive for: Regular Rate and Rhythm, Normal S1, S2, Peripheal Pulses Present. Negative for: Murmurs Abdomen: Positive for: Tenderness, Normal Bowel Sounds. Negative for: Distention Upper Extremity: Positive for: Normal Inspection, NORMAL PULSES, Neurovascularly Intact, Other (absent withdrawl to painful stimuli) Lower Extremity: Positive for: Normal Inspection, NORMAL PULSES, Neurovascularly Intact, Other (absent withdrawl to painful stimuli, up-going babinski b/l) Neurological: Positive for: Other (minimally responsive- opening eyes, absent withdrawal to pain, brainstem reflexes weak, up-going babinski b/l) Skin: Positive for: Warm, Dry Psychiatric: Positive for: Alert (minimally alert, opens eyes only) - Medications Active Medications: Active Medications Generic Name Dose Route Start Last Admin Trade Name Freq PRN Reason Stop Dose Admin Acetaminophen 650 mg 10/23/16 21:53 Tylenol 650mg/20.3ml Solution Ud PO Q4 PRN FEVER > 100.4 Artificial Tears 1 gm 10/11/16 10:30 10/24/16 18:07 Lacri-Lube OU 1 gm BID MINI Administration Enoxaparin Sodium 40 mg 10/09/16 17:30 10/24/16 10:23 Lovenox SC 40 mg DAILY MINI Administration Ceftriaxone Sodium 2 gm/ 100 mls @ 100 mls/hr 10/10/16 22:00 10/24/16 21:31 Sodium Chloride IVPB 100 mls/hr Q12 MINI Administration Vancomycin/Sodium Chloride 1 gm in 200 mls @ 133 mls/hr 10/25/16 06:30 05:37 Vancocin IVPB 10/30/16 06:31 133 mls/hr Q12H MINI Administration Insulin Aspart 0 unit 10/17/16 12:00 10/25/16 05:47 Novolog SC 2 unit Q6 MINI Administration Protocol Insulin Detemir 40 unit 10/18/16 10:08 10/24/16 21:30 Levemir SC 40 unit Q12 MINI Administration Lactulose 20 gm 10/12/16 18:00 10/24/16 18:06 Enulose NG 20 gm BID MINI Administration Metoprolol Tartrate 5 mg 10/22/16 18:00 10/24/16 18:07 Lopressor IVP 5 mg BID MINI Administration Pantoprazole Sodium 40 mg 10/24/16 13:15 10/24/16 13:25 Protonix Ec Tab PO 40 mg ACB MINI Administration - Patient Studies Lab Studies: Microbiology Studies 10/19/16 17:30 Blood Culture - Final Blood-Thru Central Line NO GROWTH AFTER 5 DAYS Gram Stain - Final TEST NOT PERFORMED 10/19/16 17:30 Blood Culture - Final Blood-Thru Central Line NO GROWTH AFTER 5 DAYS Gram Stain - Final TEST NOT PERFORMED Lab Studies 10/25/16 10/25/16 10/25/16 Range/Units 06:14 06:14 06:14 WBC 11.1 H (4.8-10.8) K/uL RBC 3.62 L (3.80-5.20) Mil/uL Hgb 10.6 L (11.0-16.0) g/dL Hct 32.1 L (34.0-47.0) % MCV 88.8 (81.0-99.0) fL MCH 29.2 (27.0-31.0) pg MCHC 32.9 L (33.0-37.0) g/dL RDW 13.5 (11.5-14.5) % Plt Count 222 (130-400) K/uL MPV 9.1 (7.2-11.7) fL Neut % (Auto) 72.1 (50.0-75.0) % Lymph % (Auto) 19.0 L (20.0-40.0) % [place] % (Auto) 6.4 (0.0-10.0) % Eos % (Auto) 2.0 (0.0-4.0) % Baso % (Auto) 0.5 (0.0-2.0) % Neut # 8.0 H (1.8-7.0) K/uL Lymph # 2.1 (1.0-4.3) K/uL [place] # 0.7 (0.0-0.8) K/uL Eos # 0.2 (0.0-0.7) K/uL Baso # 0.1 (0.0-0.2) K/uL PT 13.0 H (9.7-12.2) SECONDS INR 1.2 APTT 24 D (21-34) SECONDS Puncture Site pCO2 (35-45) mm/Hg pO2 (80-100) mm/Hg HCO3 (21-28) mmol/L ABG pH (7.35-7.45) ABG Total CO2 (22-28) mmol/L ABG O2 Saturation (95-98) % ABG Base Excess (-2.0-3.0) mmol/L ABG Hemoglobin (11.7-17.4) g/dL ABG Carboxyhemoglobin (0.5-1.5) % POC ABG HHb (Measured) (0.0-5.0) % ABG Methemoglobin (0.0-3.0) % Nico Test A-a O2 Difference mm/Hg Respiratory Index Hgb O2 Saturation (95.0-98.0) % FiO2 % PEEP Pressure Support CPAP Sodium 143 (132-148) mmol/L Potassium 3.3 L (3.6-5.2) mmol/L Chloride 108 H (98-107) mmol/L Carbon Dioxide 29 (22-30) mmol/L Anion Gap 9 L (10-20) BUN 12 (7-17) mg/dL Creatinine 0.4 L (0.7-1.2) MG/DL Est GFR ( Amer) > 60 Est GFR (Non-Af Amer) > 60 POC Glucose (mg/dL) (65-110) mg/dL Random Glucose 146 H (65-105) mg/dL Calcium 9.3 (8.6-10.4) mg/dl Phosphorus 2.3 L (2.5-4.5) mg/dL Magnesium 1.9 (1.6-2.3) mg/dL Total Bilirubin 0.7 (0.2-1.3) mg/dL AST 34 (14-36) U/L ALT 29 (9-52) U/L Alkaline Phosphatase 126 (38-126) U/L Total Protein 6.6 (6.3-8.3) g/dL Albumin 2.8 L (3.5-5.0) g/dL Globulin 3.7 (2.2-3.9) gm/dL Albumin/Globulin Ratio 0.8 L (1.0-2.1) 10/25/16 10/25/16 10/24/16 Range/Units 05:43 05:26 23:47 WBC (4.8-10.8) K/uL RBC (3.80-5.20) Mil/uL Hgb (11.0-16.0) g/dL Hct (34.0-47.0) % MCV (81.0-99.0) fL MCH (27.0-31.0) pg MCHC (33.0-37.0) g/dL RDW (11.5-14.5) % Plt Count (130-400) K/uL MPV (7.2-11.7) fL Neut % (Auto) (50.0-75.0) % Lymph % (Auto) (20.0-40.0) % [place] % (Auto) (0.0-10.0) % Eos % (Auto) (0.0-4.0) % Baso % (Auto) (0.0-2.0) % Neut # (1.8-7.0) K/uL Lymph # (1.0-4.3) K/uL [place] # (0.0-0.8) K/uL Eos # (0.0-0.7) K/uL Baso # (0.0-0.2) K/uL PT (9.7-12.2) SECONDS INR APTT (21-34) SECONDS Puncture Site Rr pCO2 39 (35-45) mm/Hg pO2 91 (80-100) mm/Hg HCO3 26.6 (21-28) mmol/L ABG pH 7.44 (7.35-7.45) ABG Total CO2 27.7 (22-28) mmol/L ABG O2 Saturation 98.5 H (95-98) % ABG Base Excess 2.2 (-2.0-3.0) mmol/L ABG Hemoglobin 9.8 L (11.7-17.4) g/dL ABG Carboxyhemoglobin 1.3 (0.5-1.5) % POC ABG HHb (Measured) 1.5 (0.0-5.0) % ABG Methemoglobin 0.7 (0.0-3.0) % Nico Test Pos A-a O2 Difference 145.0 mm/Hg Respiratory Index 1.6 Hgb O2 Saturation 96.4 (95.0-98.0) % FiO2 40.0 % PEEP 5 Pressure Support 6 CPAP 5 Sodium (132-148) mmol/L Potassium (3.6-5.2) mmol/L Chloride (98-107) mmol/L Carbon Dioxide (22-30) mmol/L Anion Gap (10-20) BUN (7-17) mg/dL Creatinine (0.7-1.2) MG/DL Est GFR ( Amer) Est GFR (Non-Af Amer) POC Glucose (mg/dL) 162 H 232 H (65-110) mg/dL Random Glucose (65-105) mg/dL Calcium (8.6-10.4) mg/dl Phosphorus (2.5-4.5) mg/dL Magnesium (1.6-2.3) mg/dL Total Bilirubin (0.2-1.3) mg/dL AST (14-36) U/L ALT (9-52) U/L Alkaline Phosphatase (38-126) U/L Total Protein (6.3-8.3) g/dL Albumin (3.5-5.0) g/dL Globulin (2.2-3.9) gm/dL Albumin/Globulin Ratio (1.0-2.1) 10/24/16 10/24/16 Range/Units 17:49 11:54 WBC (4.8-10.8) K/uL RBC (3.80-5.20) Mil/uL Hgb (11.0-16.0) g/dL Hct (34.0-47.0) % MCV (81.0-99.0) fL MCH (27.0-31.0) pg MCHC (33.0-37.0) g/dL RDW (11.5-14.5) % Plt Count (130-400) K/uL MPV (7.2-11.7) fL Neut % (Auto) (50.0-75.0) % Lymph % (Auto) (20.0-40.0) % [place] % (Auto) (0.0-10.0) % Eos % (Auto) (0.0-4.0) % Baso % (Auto) (0.0-2.0) % Neut # (1.8-7.0) K/uL Lymph # (1.0-4.3) K/uL [place] # (0.0-0.8) K/uL Eos # (0.0-0.7) K/uL Baso # (0.0-0.2) K/uL PT (9.7-12.2) SECONDS INR APTT (21-34) SECONDS Puncture Site pCO2 (35-45) mm/Hg pO2 (80-100) mm/Hg HCO3 (21-28) mmol/L ABG pH (7.35-7.45) ABG Total CO2 (22-28) mmol/L ABG O2 Saturation (95-98) % ABG Base Excess (-2.0-3.0) mmol/L ABG Hemoglobin (11.7-17.4) g/dL ABG Carboxyhemoglobin (0.5-1.5) % POC ABG HHb (Measured) (0.0-5.0) % ABG Methemoglobin (0.0-3.0) % Nico Test A-a O2 Difference mm/Hg Respiratory Index Hgb O2 Saturation (95.0-98.0) % FiO2 % PEEP Pressure Support CPAP Sodium (132-148) mmol/L Potassium (3.6-5.2) mmol/L Chloride (98-107) mmol/L Carbon Dioxide (22-30) mmol/L Anion Gap (10-20) BUN (7-17) mg/dL Creatinine (0.7-1.2) MG/DL Est GFR ( Amer) Est GFR (Non-Af Amer) POC Glucose (mg/dL) 194 H 238 H (65-110) mg/dL Random Glucose (65-105) mg/dL Calcium (8.6-10.4) mg/dl Phosphorus (2.5-4.5) mg/dL Magnesium (1.6-2.3) mg/dL Total Bilirubin (0.2-1.3) mg/dL AST (14-36) U/L ALT (9-52) U/L Alkaline Phosphatase (38-126) U/L Total Protein (6.3-8.3) g/dL Albumin (3.5-5.0) g/dL Globulin (2.2-3.9) gm/dL Albumin/Globulin Ratio (1.0-2.1) Laboratory Results - last 24 hr 10/24/16 10/24/16 10/24/16 11:54 17:49 23:47 WBC RBC Hgb Hct MCV MCH MCHC RDW Plt Count MPV Neut % (Auto) Lymph % (Auto) [place] % (Auto) Eos % (Auto) Baso % (Auto) Neut # Lymph # [place] # Eos # Baso # PT INR APTT Puncture Site pCO2 pO2 HCO3 ABG pH ABG Total CO2 ABG O2 Saturation ABG Base Excess ABG Hemoglobin ABG Carboxyhemoglobin POC ABG HHb (Measured) ABG Methemoglobin Nico Test A-a O2 Difference Respiratory Index Hgb O2 Saturation FiO2 PEEP Pressure Support CPAP Sodium Potassium Chloride Carbon Dioxide Anion Gap BUN Creatinine Est GFR ( Amer) Est GFR (Non-Af Amer) POC Glucose (mg/dL) 238 H 194 H 232 H Random Glucose Calcium Phosphorus Magnesium Total Bilirubin AST ALT Alkaline Phosphatase Total Protein Albumin Globulin Albumin/Globulin Ratio 10/25/16 10/25/16 10/25/16 05:26 05:43 06:14 WBC 11.1 H RBC 3.62 L Hgb 10.6 L Hct 32.1 L MCV 88.8 MCH 29.2 MCHC 32.9 L RDW 13.5 Plt Count 222 MPV 9.1 Neut % (Auto) 72.1 Lymph % (Auto) 19.0 L [place] % (Auto) 6.4 Eos % (Auto) 2.0 Baso % (Auto) 0.5 Neut # 8.0 H Lymph # 2.1 [place] # 0.7 Eos # 0.2 Baso # 0.1 PT INR APTT Puncture Site Rr pCO2 39 pO2 91 HCO3 26.6 ABG pH 7.44 ABG Total CO2 27.7 ABG O2 Saturation 98.5 H ABG Base Excess 2.2 ABG Hemoglobin 9.8 L ABG Carboxyhemoglobin 1.3 POC ABG HHb (Measured) 1.5 ABG Methemoglobin 0.7 Nico Test Pos A-a O2 Difference 145.0 Respiratory Index 1.6 Hgb O2 Saturation 96.4 FiO2 40.0 PEEP 5 Pressure Support 6 CPAP 5 Sodium Potassium Chloride Carbon Dioxide Anion Gap BUN Creatinine Est GFR ( Amer) Est GFR (Non-Af Amer) POC Glucose (mg/dL) 162 H Random Glucose Calcium Phosphorus Magnesium Total Bilirubin AST ALT Alkaline Phosphatase Total Protein Albumin Globulin Albumin/Globulin Ratio 10/25/16 10/25/16 06:14 06:14 WBC RBC Hgb Hct MCV MCH MCHC RDW Plt Count MPV Neut % (Auto) Lymph % (Auto) [place] % (Auto) Eos % (Auto) Baso % (Auto) Neut # Lymph # [place] # Eos # Baso # PT 13.0 H INR 1.2 APTT 24 D Puncture Site pCO2 pO2 HCO3 ABG pH ABG Total CO2 ABG O2 Saturation ABG Base Excess ABG Hemoglobin ABG Carboxyhemoglobin POC ABG HHb (Measured) ABG Methemoglobin Nico Test A-a O2 Difference Respiratory Index Hgb O2 Saturation FiO2 PEEP Pressure Support CPAP Sodium 143 Potassium 3.3 L Chloride 108 H Carbon Dioxide 29 Anion Gap 9 L BUN 12 Creatinine 0.4 L Est GFR ( Amer) > 60 Est GFR (Non-Af Amer) > 60 POC Glucose (mg/dL) Random Glucose 146 H Calcium 9.3 Phosphorus 2.3 L Magnesium 1.9 Total Bilirubin 0.7 AST 34 ALT 29 Alkaline Phosphatase 126 Total Protein 6.6 Albumin 2.8 L Globulin 3.7 Albumin/Globulin Ratio 0.8 L Fingerstick Blood Sugar Results: 162 Review of Systems - Review of Systems Systems not reviewed;Unavailable: Intubated Critical Care Progress Note - Ventilator Checklist Head of Bed 30 Degrees: Yes Daily Sedation Vacation: Yes Daily Assessment of Readiness to Wean: Yes - Vent Settings MODE:: CPAP FIO2:: 50 PEEP:: 5 - Extremities/Vascular Does the Patient have a Central Venous Catheter?: Yes Insertion Site: R PICC Does the Patient need a Central Venous Catheter?: Yes Does the Patient have a Santiago Catheter?: Yes Does the Patient need a Santiago Catheter?: Yes Catheter Insertion Criteria: Patient requires prolonged immobilization - Prophylaxis GI Prophylaxis GI: PPI - Prophylaxis DVT Prophylaxis DVT: Lovenox - Nutrition Nutrition: Nutrition Category Date Time Status NPO Diet [DIET] Diets 10/23/16 Breakfast Active Assessment/Plan (1) Acute respiratory failure Current Visit: Yes Status: Acute (2) Bacterial meningoencephalitis Current Visit: Yes Status: Acute - Assessment and Plan (Free Text) Plan: Patient Status: No acute change Stable s/p trach and PEG No interval changes from prior examinations Awaiting approval from LTAC for placement. LTAC eval order placed Neuro: -Bacterial Meningitis -Intact brainstem reflexes- weak -Intubated- CPAP -Dr. Moulton on case -MRI Postponed -Imaging: : 10/21/16 CT Head- Examination limited by motion. Nonspecific white matter changes and hypodensities predominantly involving kearney radiata and centrum semiovale bilaterally as above concerning for multifocal ischemia. Opacification of bilateral sphenoid sinuses. Mucosal thickening of the right frontal sinus. Mucosal thickening of the ethmoid air cells. Correlate clinically for sinusitis. Examination limited by mastoid air cells ; correlate clinically for otomastoiditis. : 10/12/16 CT Head- 1. Study is markedly limited by motion artifact. 2. Abnormal low density changes within the kearney radiata and centrum semiovale bilaterally more conspicuous than on the previous 10/09/2016. Study is concerning for multifocal ischemia. 3. Acute sinusitis involving the ethmoid, sphenoid and frontal sinuses. : 10/10/[address]- Limited study. The opacification of the distal internal carotid arteries and intracranial arteries is limited. Segmental mild- to-moderate stenosis at the distal right internal carotid arteries. Moderate diffuse atherosclerotic disease. The right middle cerebral artery is smaller than the left demonstrates diffuse irregularity. The distal right vertebral artery is smaller than the left. Pansinusitis. Complete opacification of the right frontal sinus. Focal defect seen in the posterior wall of the right frontal sinus without definite evidence of abscess formation in the intracranial frontal fossa. The possibility of infection spread into the intracranial fossa is not totally excluded in this exam. : 10/09/16 CT Head- No evidence of acute infarct. No intracranial mass or hemorrhage. Chronic microvascular white matter ischemic change. Chronic paranasal sinusitis. Nonspecific bilateral mastoid effusion. : 10/08/16 CT Head- Extensive bibasilar consolidation. No evidence of pulmonary embolism. : 10/08/16 CT Head- 1. No definite acute intracranial abnormality. Acute infarction may be CT occult within first 24 hours. If a focal deficit persists , consider followup CT or MRI for further evaluation. 2. Sinus disease. Cardiovascular: -Hemodynamically stable -Lopressor 5mg IV BID Pulmonary: -POD #3 s/p trach placement with Dr. Rodriguez -CPAP- tolerating well (10/21) -Imaging : 10/24/16 CXR- Limited study. Tracheostomy tube. Right-sided PICC. Mild to moderate pulmonary venous congestion. Bilateral hilar prominence. : 10/23/16 CXR- Tracheostomy tube in place. Moderate venous congestion. Patchy consolidative markings at the right lung base may represent underlying infiltrate and or atelectasis. Milder patchy increased markings at the left lung base. Bilateral hilar prominence. Mild cardiomegaly. Degenerative changes in the spine and shoulders. : 10/22/16 CXR- Satisfactory position of tracheostomy device. No active pulmonary disease. : 10/22/16 CXR- Moderate venous congestion. Bibasilar airspace opacification. Right hilar and infrahilar consolidative changes. Biapical pleural thickening with upper lobe granulomatous changes. Cardiomegaly. : 10/21/16 CXR- No active disease. Lines and tubes unchanged. : 10/20/16 CXR- In situ ETT, tip of which lies approximately 5.65 cm above pia. NGT is present, the tip of which has not been included on this film though distal aspect does lie below EG junction. Right-sided PICC line with tip in the SVC. Bibasilar atelectatic changes are felt to be present. : 10/19/16 CXR- ETT, NGT and right-sided PICC line as above. Patchy left lower lobe atelectasis and or infiltrate. : 10/18/16 CXR- Right sided PICC line with tip SVC. Right IJ central venous line is also present the tip in the SVC as well. In situ ETT, tip of which lies approximately 4.6 cm above pia. NGT is present, the, tip of which has not been included on this film though distal aspect does lie well below EG junction. Vague patchy opacity in the left mid to lower lung field could represent developing atelectasis and or infiltrate. Suspect minor right basilar atelectasis. : 10/17/16 CXR- Moderate venous congestion. Patchy consolidative changes at both lung bases; right greater than left. Small left pleural effusion. Biapical pleural thickening with upper lobe granulomatous changes. Cardiomegaly. -ABG : 10/25/16- CO2= 39 / O2= 91 / HCO3=26.6 / pH= 7.44 : 10/24/16- CO2= 43 / O2= 123 / HCO3=27.2 / pH= 7.42 : 10/23/16- CO2= 47 / O2= 124 / HCO3=28.4 / pH= 7.41 : 10/22/16- CO2= 45 / O2=78 / HCO3=31.8 / pH= 7.48 : 10/21/16- CO2= 44 / O2=72 / HCO3=32.0 / pH= 7.49 : 10/20/16- CO2= 45 / O2=78 / HCO3=33.1 / pH= 7.50 : 10/19/16- CO2= 43 / O2=62 / HCO3=32.1 / pH= 7.50 : 10/18/16- CO2= 44 / O2=74 / HCO3=29.6 / pH= 7.46 : 10/17/16- CO2= 46 / O2=78 / HCO3=32.1 / pH= 7.48 Gastrointestinal: -POD#2 s/p PEG Tube placement -Resume tube feeds- diabetisource goal rate 70ml/hr Hematology: -No issues Endocrine: -Insulin 40u SC daily -Novolin sliding scale Renal: -Hypophosphatemia- replaced with 15mmol sodium phosphate IV -Hypomagnesemia- replaced with 1g IV -Hypokalemia- replaced with 40mg PEG x 1 -Monitor I&Os Musculoskeletal: -None Genitourinary: -No issues -Voiding well Infectious Disease: -Bacterial Meningitis -Dr. Long Following -Vancomycin 1g IV q12 day 7 -Ceftriaxone 2g IV q12 Day 16 GI Prophylaxis: Protonix 40mg PO daily DVT Prophylaxis: Lovenox 40mg SC Daily Case Discussed with Dr. Paulette Wilson PGY1 - Date & Time Date: 10/25/16 Time: 13:10
[2016-10-25] MEDS: Pantoprazole 40 mg EC Tab PO SCH (08:15)
[2016-10-25] MEDS: Insulin Detemir 100 units/ml Vial (Levemir) SC SCH (09:43)
[2016-10-25] MEDS: Metoprolol 1 mg/ml Inj IVP SCH ×2 (09:43→17:01)
[2016-10-25] MEDS: cefTRIAXone 2 GM in Sodium Chloride 0.9% 100 ML IVPB SCH (09:43)
[2016-10-25] MEDS: Enoxaparin 40 mg Syringe SC SCH (09:43)
[2016-10-25] MEDS: White Petrolatum/Mineral Oil Ophth Oint(3.5 gm) OU SCH ×2 (09:44→18:35)
--- NOTE | 2016-10-25 16:21 | CP.PCM.PN ---
Subjective - Date & Time of Evaluation Date of Evaluation: 10/25/16 Time of Evaluation: 09:00 - Subjective Subjective: iv rx reordered Objective - Vital Signs/Intake and Output Vital Signs (last 24 hours): Temp Pulse Resp BP Pulse Ox 100.2 F H 88 19 160/65 H 99 10/25/16 12:00 10/25/16 15:00 10/25/16 15:00 10/25/16 15:00 10/25/16 15:00 Intake and Output: 10/25/16 10/25/16 06:59 18:59 Intake Total 850 965 Output Total 755 55 Balance 95 910 - Medications Medications: Current Medications Acetaminophen (Tylenol 650mg/20.3ml Solution Ud) 650 mg PO Q4 PRN PRN Reason: FEVER > 100.4 Artificial Tears (Lacri-Lube) 1 gm OU BID [facility] Last Admin: 10/25/16 09:44 Dose: 1 gm Enoxaparin Sodium (Lovenox) 40 mg SC DAILY [facility] Last Admin: 10/25/16 09:43 Dose: 40 mg Ceftriaxone Sodium 2 gm/ (Sodium Chloride) 100 mls @ 100 mls/hr IVPB Q12 MINI Last Admin: 10/25/16 09:43 Dose: 100 mls/hr Vancomycin/Sodium Chloride (Vancocin) 1 gm in 200 mls @ 133 mls/hr IVPB Q12H [facility] Stop: 10/30/16 06:31 Last Admin: 10/25/16 05:37 Dose: 133 mls/hr Insulin Aspart (Novolog) 0 unit SC Q6 MINI PRN Reason: Protocol Last Admin: 10/25/16 13:00 Dose: 4 unit Insulin Detemir (Levemir) 40 unit SC Q12 [facility] Last Admin: 10/25/16 09:43 Dose: 40 unit Lactulose (Enulose) 20 gm NG BID [facility] Last Admin: 10/25/16 09:37 Dose: Not Given Metoprolol Tartrate (Lopressor) 5 mg IVP BID [facility] Last Admin: 10/25/16 09:43 Dose: 5 mg Pantoprazole Sodium (Protonix Ec Tab) 40 mg PO ACB [facility] Last Admin: 10/25/16 08:15 Dose: 40 mg - Labs Labs: 10/25/16 06:14 10/25/16 06:14 PT 13.0 SECONDS (9.7-12.2) H 10/25/16 06:14 INR 1.2 10/25/16 06:14 APTT 24 SECONDS (21-34) D 10/25/16 06:14 Assessment and Plan (1) Meningitis Status: Acute (2) Meningitis Status: Acute (3) Acute confusional state Status: Acute (4) Encephalopathy acute Status: Acute (5) Pneumonia Status: Acute (6) Sepsis Status: Acute
[2016-10-25 17:25] VITALS: TEMP 100.4
[2016-10-25 18:05] VITALS: BP 149/72; PULSE 89; RESP 21; O2SAT 99
== END 2016-10-25 19:49 | DRG 878 ==
LOC: C.ER 01:30 → C.9I 05:34
PROVIDERS: ADMIT Internal Medicine; ATTEND Internal Medicine
PROC: 5A1955Z Respiratory Ventilation, Greater than 96 Consecutive Hours (ICD-10-PCS; principal; 2016-10-08)
PROC: 0BH17EZ Insertion of Endotracheal Airway into Trachea, Via Natural or Artificial Opening (ICD-10-PCS; 2016-10-08)
PROC: 3E0G76Z Introduction of Nutritional Substance into Upper GI, Via Natural or Artificial Opening (ICD-10-PCS; 2016-10-09)
PROC: 0B113F4 Bypass Trachea to Cutaneous with Tracheostomy Device, Percutaneous Approach (ICD-10-PCS; 2016-10-22)
PROC: 009U3ZX Drainage of Spinal Canal, Percutaneous Approach, Diagnostic (ICD-10-PCS; 2016-10-22)
PROC: 0BJ08ZZ Inspection of Tracheobronchial Tree, Via Natural or Artificial Opening Endoscopic (ICD-10-PCS; 2016-10-22)
PROC: 0DH68UZ Insertion of Feeding Device into Stomach, Via Natural or Artificial Opening Endoscopic (ICD-10-PCS; 2016-10-23)
DX: G04.2 Bacterial meningoencephalitis and meningomyelitis, not elsewhere classified (principal); A41.89 Other specified sepsis; G93.6 Cerebral edema; G93.40 Encephalopathy, unspecified; J15.4 Pneumonia due to other streptococci; J96.00 Acute respiratory failure, unspecified whether with hypoxia or hypercapnia; J44.0 Chronic obstructive pulmonary disease with (acute) lower respiratory infection; E87.6 Hypokalemia; R13.10 Dysphagia, unspecified; E11.9 Type 2 diabetes mellitus without complications; J32.4 Chronic pansinusitis; F05 Delirium due to known physiological condition; E66.9 Obesity, unspecified; E78.5 Hyperlipidemia, unspecified; E83.42 Hypomagnesemia; M19.90 Unspecified osteoarthritis, unspecified site; J45.909 Unspecified asthma, uncomplicated; G43.909 Migraine, unspecified, not intractable, without status migrainosus; F41.9 Anxiety disorder, unspecified; Z51.5 Encounter for palliative care; Z79.2 Long term (current) use of antibiotics; Z88.0 Allergy status to penicillin

== ENCOUNTER 2016-11-01 12:53 | Inpatient (IN) | payer MEDICAID ==
[2016-11-01 13:08] VITALS: BMI 48.4
[2016-11-01] MEDS ORDERED: Iohexol 240 (50 ml) PO STA (13:10)
--- NOTE | 2016-11-01 13:48 | C.PDOC ---
History Of Present Illness Patient sent to ED from free standing ICU for evaluation of distended abdomen, vomiting and possible bowel obstruction. History is as per EMS and facility papers. Patient has h/o vent dependent resp failure, bacterial meningitis, HTN , hyperlipidemia, COPD/asthma. As per EMS, patient's baseline is obtunded and nonverbal since leaving [facility] approx 1 week ago. Time Seen by Provider: 11/01/16 13:02 Chief Complaint (Nursing): Shortness Of Breath History Per: EMS History/Exam Limitations: clinical condition Past Medical History Reviewed: Historical Data, Nursing Documentation, Vital Signs Vital Signs: Last Vital Signs Temp 99.8 F H 11/09/16 16:00 Pulse 100 H 11/09/16 18:47 Resp 14 11/09/16 18:47 BP 50/27 L 11/09/16 18:47 Pulse Ox 94 L 11/10/16 18:10 - Medical History PMH: Anemia, Anxiety, Arthritis, Asthma, CHF, COPD, Depression, Diabetes, HTN, Hypercholesterolemia, Migraine Surgical History: ( x 1) - [facility] Procedures BYPASS TRACHEA TO CUTANEOUS WITH TRACH DEV, PERC APPROACH (10/08/16) D & C NEC (10/03/14) DRAINAGE OF SPINAL CANAL, PERCUTANEOUS APPROACH, DIAGNOSTIC (10/08/16) INJECT/INFUSE NEC (03/03/13) INSERTION OF ENDOTRACHEAL AIRWAY INTO TRACHEA, VIA OPENING (10/08/16) INSERTION OF FEEDING DEVICE INTO STOMACH, ENDO (10/08/16) INSPECTION OF BLADDER, ENDO (08/11/15) INSPECTION OF TRACHEOBRONCHIAL TREE, ENDO (10/08/16) INTRODUCTION OF NUTRITIONAL INTO UP GI, VIA OPENING (10/08/16) NEBULIZER THERAPY (03/03/13) RESECTION OF CERVIX, VIA NATURAL OR ARTIFICIAL OPENING (08/11/15) RESECTION OF UTERUS, VIA OPENING W PERC ENDO (08/11/15) RESPIRATORY VENTILATION, GREATER THAN 96 CONSECUTIVE HOURS (10/08/16) ROBOTIC ASSISTED PROCEDURE OF TRUNK, PERC ENDO APPROACH (08/11/15) Family History: States: No Known Family Hx - Social History Hx Tobacco Use: No Hx Alcohol Use: No Hx Substance Use: No Review Of Systems Review Of Systems: ROS cannot be obtained secondary to pt's inabilty to answer questions. Physical Exam - Physical Exam Appears: Chronically Ill, Other (tachypnic) Skin: Warm, Diaphoretic Head: Normacephalic Nose: Other (NG tube right nare - bilious fluid draining) Oral Mucosa: Moist Neck: Other (trachestomy tube present) Cardiovascular: Rhythm Regular (tachycardic ) Respiratory: Accessory Muscle Use (mild), No Rales, No Rhonchi, Other (coarse breath sounds B/L) Gastrointestinal/Abdominal: Bowel Sounds, Distention (large distended abdomen, PEG in LUQ) Extremity: Other (B/L hand + 1 pitting edmea, RUE PICC in place) Extremity: Bilateral: Other (extremities cool to touch with faint pulses) ED Course And Treatment - Laboratory Results Result Diagrams: 11/08/16 06:20 11/08/16 06:22 ECG: Interpreted By Me, Viewed By Me (sinus tachycardia 117 bpm, nromal axis, no acute ST/T wave changes) ECG Interpretation: Abnormal (tachycardic ) O2 Sat by Pulse Oximetry: 94 (FIO2 45%) Pulse Ox Interpretation: Normal - Other Rad CXR X-Ray: Viewed By Me, Read By Radiologist Progress Note: PICC line able to be flushed but without blood return. CXR confirms PICC in place. Multiple attempts made by me and nurses to obtain peripheral line/stick - finally able to obtain blood from left femoral artery. Vancomycin and Azactam ordered. IV fluid bolus given. Code sepsis called. Right tibial IO inserted by me for second line (code sepsis protocol). Hyperkalemia medications given - IV insulin, bicarb, calcium gluconate, D50 amp. 4:00pm- Spoke with water project engineer, he agrees with admission, would like patient white scanned prior to arrival in ED - CT head and chest added. 4:15pm- Spoke with Dr. Goldstein, he is not PMD was just medicine brickmason helper - patient to be admitted under medical service. - Physician Consult Information Physician Contacted: Carmen Maguire Outcome Of Conversation: Agrees with ICU admission Critical Care Time - Critical Care Note Total Time (in mins): 50 Documented critical care: time excludes all time spent performing seperately billable procedures. Disposition - Disposition Disposition: HOSPITALIZED Disposition Time: 16:22 Condition: SERIOUS - Clinical Impression Clinical Impression: Sepsis, Respiratory disorder with ventilator dependence, Dehydration, Hyperkalemia, ARF (acute renal failure) Decision To Admit - Pt Status Changed To: Hospital Disposition Of: Inpatient - Admit Certification Admit to Inpatient:: After my assessment, the patient will require hospitalization for at least two midnights. This is because of the severity of symptoms shown, intensity of services needed, and/or the medical risk in this patient being treated as an outpatient. - InPatient: Physician Admission Certification: I certify that this patient requires 2 or more midnights of care for the following reason:: see notes - . Bed Request Type: ICU Admitting Physician: Carmen Maguire Patient Diagnosis: Sepsis, Respiratory disorder with ventilator dependence, Dehydration, Hyperkalemia, ARF (acute renal failure) Procedures - IO Right Consent Obtained: verbal consent (emergent consent) Anesthetic Used: none IO Instrument Used to Penetrate the Cortex: standard IO needle, battery powered IO drill Patient Tolerated Procedure: well Complications: none Additional comments: right proiximal tibia IO inserted for second line as per Code sepsis protocol, ( +) bone marrow return, able to flush saline freely.
[2016-11-01] MEDS ORDERED: Vancomycin 1 gm/NS 200 ml 1 GM/200 ML BAG IVPB ONE (14:00)
[2016-11-01] MEDS ORDERED: Sodium Chloride 0.9% 1,000 ML ONE (14:06)
--- NOTE | 2016-11-01 14:07 | RAD ---
PROCEDURE: CHEST RADIOGRAPH, 1 VIEW HISTORY: Shortness of breath COMPARISON: 10/13/2016. FINDINGS: There has been interval tracheostomy. The nasogastric tube terminates in the stomach. LUNGS: The lungs are clear PLEURA: No pneumothorax or pleural fluid seen. CARDIOVASCULAR: Normal. OSSEOUS STRUCTURES: No significant abnormalities. VISUALIZED UPPER ABDOMEN: Normal. OTHER FINDINGS: None. IMPRESSION: Status post tracheostomy, no acute findings.
[2016-11-01 14:14] LABS: ABG ALLEN TEST POS; ABG MECHANICAL RATE 14; ATERIAL BLOOD GAS PEEP 5; DRAW SITE LR
[2016-11-01 14:49] LABS: INR 1.5
[2016-11-01] MEDS ORDERED: Sodium Chloride 0.9% 1,000 ML IV ONE ×2 (14:49→23:57)
[2016-11-01 14:58] LABS: BASO % 0.4 % (0.0-2.0); EOS # 0.2 K/uL (0.0-0.7); EOS % 1.7 % (0.0-4.0); HEMATOCRIT 32.9 % (34.0-47.0); LYMPH % 19.3 % (20.0-40.0); MEAN CELL VOLUME 89.5 fL (81.0-99.0); MEAN CORPUSCULAR HEMOGLOBIN 28.7 pg (27.0-31.0); MEAN CORPUSCULAR HGB CONC 32.1 g/dL (33.0-37.0); MEAN PLATELET VOLUME 9.6 fL (7.2-11.7); MONO # 0.6 K/uL (0.0-0.8); MONO % 6.2 % (0.0-10.0); NRBC % 0.1 % (0.0-2.0); RED CELL DISTRIBUTION WIDTH 14.3 % (11.5-14.5); WHITE BLOOD COUNT 10.3 K/uL (4.8-10.8)
[2016-11-01] MEDS ORDERED: Aztreonam 2 GM in Sodium Chloride 0.9% 100 ML IVPB STA (15:15)
[2016-11-01 15:24] LABS: ALB/GLOB RATIO 0.6 (1.0-2.1); BILIRUBIN,TOTAL 0.9 mg/dL (0.2-1.3); TOTAL PROTEIN 6.6 g/dL (6.3-8.3)
[2016-11-01 15:25] LABS: PHOSPHOROUS 5.2 mg/dL (2.5-4.5)
[2016-11-01 15:26] LABS: CALCIUM 8.3 mg/dl (8.6-10.4); MAGNESIUM 2.4 mg/dL (1.6-2.3)
[2016-11-01 15:36] LABS: POTASSIUM 7.1 mmol/L (3.6-5.2)
[2016-11-01] MEDS ORDERED: (Novolin R) Insulin Human Regular 100 units/ml vial IV ONE (15:38)
[2016-11-01] MEDS ORDERED: Calcium Gluconate 4.65 MEQ in Dextrose 5% In Water 100 ML IV ONE (15:38)
[2016-11-01] MEDS ORDERED: Sodium Bicarbonate (8.4%) 50 Meq Syringe IVP ONE (15:39)
[2016-11-01] MEDS ORDERED: Dextrose 50% SYRINGE Inj (50 ml) IVP STA (15:39)
[2016-11-01] MEDS ORDERED: Iohexol 240 (50 ml) ONE (16:03)
[2016-11-01] MEDS ORDERED: Calcium Gluconate 4.65 mEq/10 ml Inj ONE (16:24)
[2016-11-01] MEDS ORDERED: (Novolin R) Insulin Human Regular 100 units/ml vial ONE (16:24)
[2016-11-01] MEDS ORDERED: Dextrose 50% SYRINGE Inj (50 ml) ONE (16:25)
[2016-11-01] MEDS ORDERED: Sodium Bicarbonate (8.4%) 50 Meq Syringe ONE (16:25)
--- NOTE | 2016-11-01 17:40 | CT ---
PROCEDURE: CT HEAD WITHOUT CONTRAST. HISTORY: icu request, sepsis COMPARISON: Comparison made with prior CT scan of the brain dated 10/21/2016 TECHNIQUE: Axial computed tomography images were obtained through the head/brain without intravenous contrast. Radiation dose: Total exam DLP = 2416.2 mGy-cm. This CT exam was performed using one or more of the following dose reduction techniques: Automated exposure control, adjustment of the mA and/or kV according to patient size, and/or use of iterative reconstruction technique. FINDINGS: HEMORRHAGE: No acute parenchymal, subarachnoid or extra-axial hemorrhage. Hemorrhage. BRAIN: Re- demonstrated are extensive patchy low-attenuation changes within the deep and subcortical white matter both cerebral hemispheres. In addition, more confluent low-attenuation changes within the periventricular white matter. These findings are of uncertain etiology though may represent chronic of sequela of ischemia. The possibility of superimposed small hyperacute infarct cannot be excluded based on this exam. Mild moderate generalized volume loss unchanged. Vascular calcifications of the carotid siphons again noted. VENTRICLES: No evidence of obstructive hydrocephalus. CALVARIUM: No acute calvarial fractures. PARANASAL SINUSES: Mild mucosal thickening seen within several superior right-sided ethmoid air cells with slightly more significant mucosal thickening in the right chamber sphenoid sinus. In addition, there are a few opacified left-sided ethmoid air cells as well. Mild mucosal thickening in the sphenoid sinus. . MASTOID AIR CELLS: Partial opacification of both mastoid air complexes OTHER FINDINGS: In situ NGT is felt be present. IMPRESSION: No acute intracranial hemorrhage. Re- demonstrated are extensive patchy low-attenuation changes within the deep and subcortical white matter both cerebral hemispheres. In addition, more confluent low-attenuation changes within the periventricular white matter. These findings are of uncertain etiology though may represent chronic of sequela of ischemia. The possibility of superimposed small hyperacute infarct cannot be excluded based on this exam. Consider followup MRI for further evaluation if necessary Mild moderate generalized volume loss unchanged. Mucosal thickening seen within the ethmoid sphenoid and frontal sinuses. Partial opacification both mastoid air complexes.
[2016-11-01] MEDS ORDERED: Sod Polystyrene Sulf 15 gm/60 ml Oral Susp PO ONE (18:04)
[2016-11-01 18:24] LABS: ABG ALLEN TEST POS; ABG MECHANICAL RATE 14; ATERIAL BLOOD GAS PEEP 5; DRAW SITE LRA
[2016-11-01] MEDS: (Novolog) Insulin Aspart, Recombinant 100 u/ml 10 ml vial SC SCH (18:27)
[2016-11-01 18:28] LABS: RBC URINE 50 /hpf (0-3); URINE BACTERIA OCC (<OCC); URINE BILIRUBIN SMALL (NEGATIVE); URINE COLOR YELLOW (YELLOW); URINE GLUCOSE (UA) 100 mg/dL (Normal); URINE KETONE 15 mg/dL (NEGATIVE); WBC URINE 7 /hpf (0-5)
[2016-11-01 18:29] LABS: URINE BLOOD LARGE (NEGATIVE); URINE LEUKOCYTE ESTERASE NEGATIVE Leu/uL (Negative); URINE PROTEIN > 300 mg/dL (NEGATIVE); URINE UROBILINOGEN 0.2 mg/dL (0.2-1.0)
--- NOTE | 2016-11-01 18:52 | CP.PCM.CON ---
History of Present Illness - History of Present Illness History of Present Illness: 61yo F. PMHx of Asthma, HTN, HLD, DM, septic embolic strokes with subsequent comatose state. Pt was brought in for distended abdomen, vomiting and possible bowel obstruction. Review of Systems - Review of Systems Systems not reviewed;Unavailable: Altered Mental Status, Intubated Past Patient History - Infectious Disease Hx of Infectious Diseases: None - Tetanus Immunizations Tetanus Immunization: Unknown - Past Medical History & Family History Past Medical History?: Yes - Past Social History Smoking Status: Unknown If Ever Smoked - CARDIAC Hx Congestive Heart Failure: Yes Hx Hypercholesterolemia: Yes Hx Hypertension: Yes - PULMONARY Hx Asthma: Yes Hx Chronic Obstructive Pulmonary Disease (COPD): Yes - NEUROLOGICAL Hx Migraine: Yes - HEENT Hx HEENT Problems: Yes (Allergic Rhinitis) - RENAL Hx Chronic Kidney Disease: No - ENDOCRINE/METABOLIC Hx Endocrine Disorders: Yes Hx Diabetes Mellitus Type 2: Yes (FROM EMS) - HEMATOLOGICAL/ONCOLOGICAL Hx Anemia: Yes - INTEGUMENTARY Hx Dermatological Problems: No - MUSCULOSKELETAL/RHEUMATOLOGICAL Hx Arthritis: Yes Hx Falls: No - GASTROINTESTINAL Hx Gastrointestinal Disorders: No - GENITOURINARY/GYNECOLOGICAL Hx Genitourinary Disorders: No - PSYCHIATRIC Hx Anxiety: Yes Hx Depression: Yes Hx Substance Use: No - SURGICAL HISTORY Hx Surgeries: Yes Hx Section: Yes (FROM PRIOVIOUS CHART) Hx Dilation and Curettage: Yes (2013) Other/Comment: D&C (2013) - ANESTHESIA Hx Anesthesia: Yes Hx Anesthesia Reactions: No Hx Malignant Hyperthermia: No Meds Allergies/Adverse Reactions: Allergies Allergy/AdvReac Type Severity Reaction Status Date / Time moxifloxacin HCl Allergy Mild RASH Verified 11/01/16 13:09 [From Avelox] codeine Allergy RASH Verified 11/01/16 13:09 morphine AdvReac RASH Verified 11/01/16 13:09 niacin AdvReac ITCHING Verified 11/01/16 13:09 [From Niaspan Extended-Release] Penicillins AdvReac RASH Verified 11/01/16 13:09 tramadol AdvReac RASH Verified 11/01/16 13:09 - Medications Medications: Current Medications Sodium Bicarbonate 75 meq/ (Sodium Chloride) 1,075 mls @ 150 mls/hr IV .Q7H10M [facility]I Vancomycin HCl 1,000 mg/ (Sodium Chloride) 250 mls @ 166.6 mls/hr IVPB Q12H [facility] Ceftriaxone Sodium 2 gm/ (Sodium Chloride) 100 mls @ 100 mls/hr IVPB DAILY [facility] Insulin Aspart (Novolog) 0 unit SC Q6H [facility] PRN Reason: Protocol Last Admin: 11/01/16 18:27 Dose: Not Given Physical Exam - Head Exam Head Exam: ATRAUMATIC, NORMAL INSPECTION, NORMOCEPHALIC - Respiratory Exam Respiratory Exam: Clear to Auscultation Bilateral, NORMAL BREATHING PATTERN - Cardiovascular Exam Cardiovascular Exam: Tachycardia, REGULAR RHYTHM - GI/Abdominal Exam GI & Abdominal Exam: Diminished Bowel Sounds, Distended - Neurological Exam Additional comments: comatose Results - Vital Signs Recent Vital Signs: Last Vital Signs Temp 100.7 F H 11/01/16 13:05 Pulse 109 H 11/01/16 18:20 Resp 32 H 11/01/16 18:20 BP 108/57 L 11/01/16 17:45 Pulse Ox 93 L 11/01/16 18:20 - Labs Result Diagrams: 11/01/16 14:53 11/01/16 15:00 Labs: Laboratory Results - last 24 hr 11/01/16 11/01/16 18:09 18:19 Puncture Site Lra pCO2 24 L pO2 68 L HCO3 20.6 L ABG pH 7.45 ABG Total CO2 17.4 L ABG O2 Saturation 95.9 ABG Base Excess -5.5 L Nico Test Pos ABG Potassium 6.4 H* A-a O2 Difference 223.0 Respiratory Index 3.3 Sodium 139.0 Chloride 111.0 H Glucose 106 H Lactate 5.4 H* Mechanical Rate 14 FiO2 45.0 Tidal Volume 450 PEEP 5 Crit Value Called To Dr roblero Crit Value Called By Gabe alba superintendent electric power Crit Value Read Back Y Blood Gas Notified Time 1822 Arterial Blood Potassium 6.4 H* Urine Color Yellow Urine Clarity Cloudy Urine pH 5.0 Ur Specific [place] 1.025 Urine Protein > 300 Urine Glucose (UA) 100 Urine Ketones 15 Urine Blood Large Urine Nitrate Positive H Urine Bilirubin Small Urine Urobilinogen 0.2 Ur Leukocyte Esterase Negative Urine WBC (Auto) 7 H Urine RBC (Auto) 50 H Ur Squamous Epith Cells 3 Amorphous Sediment Occ H Urine Bacteria Occ H Assessment & Plan (1) Small bowel obstruction Assessment and Plan: 61yo F. PMHx of Asthma, HTN, HLD, DM, septic embolic strokes with subsequent comatose state. Pt was brought in for distended abdomen, vomiting and possible bowel obstruction. Neuro: No improvement from previous admission, patient still comatose. Pulm: Chronic respiratory failure,on PRVC via trach CV: Hypotensive, will monitor. Patient received Zamora should saline boluses and ED, we'll continue aggressive fluid hydration. Hem:anemia of critical illness Renal: Oliguric acute kidney injury. 1/2NS+75meqSB@150. Hyperkalemia, patient given calcium chloride, insulin, D50, Kayexalate. Repeat BMP. Patient will not be a good candidate for dialysis if necessary. Endo: DM type II, short acting insulin sliding scale for coverage. GI: Nothing by mouth ID: Severe sepsis, source uncertain DVT proph - heparin subcutaneous GI proph - protonix zamora for strict I/O's during acute illness Code status - full code patient is critically ill, with high mortality risk. Extremely poor prognosis. Will try to discuss with family about goals of care. Crtical Care Time spent 35 minutes Multi-disciplinary rounds were performed with house staff, nursing, speech therapy, respiratory therapy, pharmacy and nutrition with integrated input from the primary team/attending and other consulting services. The documented time is cumulative and includes review of patient data/exams/labs/chart review and examination of the patient on rounds and throughout the day; time is exclusive of any procedures or teaching time. Status: Acute
[2016-11-01 20:53] LABS: ABG ALLEN TEST POS; ABG MECHANICAL RATE 14; ATERIAL BLOOD GAS PEEP 8; DRAW SITE LRA
[2016-11-01] MEDS ORDERED: Sodium Polystyrene Sulfonate Enema 30 gm/120 ml PR STA (21:24)
--- NOTE | 2016-11-01 21:29 | CP.PCM.CON ---
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 Pt is known to service from previous tracheostomy. Most recently brought to ED due to progressive abdominal distension with vomiting, concerning for obstruction. CT abdomen was obtained which showed minimal free air and a large amount of free fluid in the abdomen. It appears that the PEG tube has dislodged yet pt continued to receive tube feeds. Family has recently elected to make pt DNR. Review of Systems - Review of Systems Systems not reviewed;Unavailable: Intubated Past Patient History - Infectious Disease Hx of Infectious Diseases: None - Tetanus Immunizations Tetanus Immunization: Unknown - Past Medical History & Family History Past Medical History?: Yes - Past Social History Smoking Status: Unknown If Ever Smoked - CARDIAC Hx Congestive Heart Failure: Yes Hx Hypercholesterolemia: Yes Hx Hypertension: Yes - PULMONARY Hx Asthma: Yes Hx Chronic Obstructive Pulmonary Disease (COPD): Yes - NEUROLOGICAL Hx Migraine: Yes - HEENT Hx HEENT Problems: Yes (Allergic Rhinitis) - RENAL Hx Chronic Kidney Disease: No - ENDOCRINE/METABOLIC Hx Endocrine Disorders: Yes Hx Diabetes Mellitus Type 2: Yes (FROM EMS) - HEMATOLOGICAL/ONCOLOGICAL Hx Anemia: Yes - INTEGUMENTARY Hx Dermatological Problems: No - MUSCULOSKELETAL/RHEUMATOLOGICAL Hx Arthritis: Yes Hx Falls: No - GASTROINTESTINAL Hx Gastrointestinal Disorders: No - GENITOURINARY/GYNECOLOGICAL Hx Genitourinary Disorders: No - PSYCHIATRIC Hx Anxiety: Yes Hx Depression: Yes Hx Substance Use: No - SURGICAL HISTORY Hx Surgeries: Yes Hx Section: Yes (FROM PRIOVIOUS CHART) Hx Dilation and Curettage: Yes (2013) Other/Comment: D&C (2013) - ANESTHESIA Hx Anesthesia: Yes Hx Anesthesia Reactions: No Hx Malignant Hyperthermia: No Meds Allergies/Adverse Reactions: Allergies Allergy/AdvReac Type Severity Reaction Status Date / Time moxifloxacin HCl Allergy Mild RASH Verified 11/01/16 13:09 [From Avelox] codeine Allergy RASH Verified 11/01/16 13:09 morphine AdvReac RASH Verified 11/01/16 13:09 niacin AdvReac ITCHING Verified 11/01/16 13:09 [From Niaspan Extended-Release] Penicillins AdvReac RASH Verified 11/01/16 13:09 tramadol AdvReac RASH Verified 11/01/16 13:09 - Medications Medications: Current Medications Sodium Bicarbonate 75 meq/ (Sodium Chloride) 1,075 mls @ 150 mls/hr IV .Q7H10M [facility] Last Admin: 11/01/16 19:01 Dose: 150 mls/hr Vancomycin HCl 1,000 mg/ (Sodium Chloride) 250 mls @ 166.6 mls/hr IVPB Q12H [facility] Meropenem 1 gm/ Sodium (Chloride) 100 mls @ 100 mls/hr IVPB ONCE ONE Stop: 11/01/16 22:29 Insulin Aspart (Novolog) 0 unit SC Q6H [facility] PRN Reason: Protocol Last Admin: 11/01/16 18:27 Dose: Not Given Sodium Polystyrene Sulfonate (Kayexalate Enema) 60 gm SC STAT STA Stop: 11/01/16 21:25 Physical Exam - Constitutional Appears: Chronically Ill - Respiratory Exam Additional comments: tachypneic - Cardiovascular Exam Cardiovascular Exam: Tachycardia - GI/Abdominal Exam GI & Abdominal Exam: Distended, Hypoactive Bowel Sounds, Soft. absent: Firm, Guarding, Hernia Results - Vital Signs Recent Vital Signs: Last Vital Signs Temp 98.1 F 11/01/16 18:00 Pulse 107 H 11/01/16 19:00 Resp 32 H 11/01/16 19:00 BP 112/70 11/01/16 18:47 Pulse Ox 92 L 11/01/16 19:00 - Labs Result Diagrams: 11/01/16 14:53 11/01/16 15:00 Labs: Laboratory Results - last 24 hr 11/01/16 11/01/16 11/01/16 18:09 18:19 20:49 Puncture Site Lra Lra pCO2 24 L 17 L* pO2 68 L 92 HCO3 20.6 L 20.1 L ABG pH 7.45 7.52 H ABG Total CO2 17.4 L 14.4 L ABG O2 Saturation 95.9 100.4 H ABG Base Excess -5.5 L -6.2 L Nico Test Pos Pos ABG Potassium 6.4 H* 9.3 H* A-a O2 Difference 223.0 422.0 Respiratory Index 3.3 4.6 Sodium 139.0 140.0 Chloride 111.0 H 118.0 H Glucose 106 H 100 Lactate 5.4 H* 5.3 H* Mechanical Rate 14 14 FiO2 45.0 75.0 Tidal Volume 450 450 PEEP 5 8 Crit Value Called To Dr annika sierra Crit Value Called By Gabe alba bow making machine operator Gabe alba bow making machine operator Crit Value Read Back Y Y Blood Gas Notified Time 1821 2052 Arterial Blood Potassium 6.4 H* 9.3 H* Urine Color Yellow Urine Clarity Cloudy Urine pH 5.0 Ur Specific [place] 1.025 Urine Protein > 300 Urine Glucose (UA) 100 Urine Ketones 15 Urine Blood Large Urine Nitrate Positive H Urine Bilirubin Small Urine Urobilinogen 0.2 Ur Leukocyte Esterase Negative Urine WBC (Auto) 7 H Urine RBC (Auto) 50 H Ur Squamous Epith Cells 3 Amorphous Sediment Occ H Urine Bacteria Occ H Assessment & Plan - Assessment and Plan (Free Text) Assessment: 61F chronically ill w/ dislodged PEG tube Plan: Pt is extremely ill, tachypneic, tachycardic prognosis is extremely poor pt would require laparotomy to address dislodged tube and wash out abdomen would require resuscitation and optimization before such intervention will re-evaluate tomorrow d/w Dr Michael Rodriguez, PGY2 - Date & Time Date: 11/01/16 Time: 21:47
[2016-11-01] MEDS ORDERED: Meropenem 1 GM in Sodium Chloride 0.9% 100 ML IVPB ONE (21:30)
[2016-11-01 21:46] LABS: BASO % 0.1 % (0.0-2.0); EOS % 0.3 % (0.0-4.0); HEMATOCRIT 30.9 % (34.0-47.0); LYMPH # 1.5 K/uL (1.0-4.3); LYMPH % 14.9 % (20.0-40.0); MEAN CORPUSCULAR HEMOGLOBIN 28.7 pg (27.0-31.0); MEAN CORPUSCULAR HGB CONC 32.3 g/dL (33.0-37.0); MEAN PLATELET VOLUME 9.3 fL (7.2-11.7); MONO # 0.6 K/uL (0.0-0.8); MONO % 5.8 % (0.0-10.0); NRBC % 0.1 % (0.0-2.0); PLATELET COUNT 279 K/uL (130-400); RED CELL DISTRIBUTION WIDTH 14.6 % (11.5-14.5)
[2016-11-01 21:48] LABS: ALB/GLOB RATIO 0.7 (1.0-2.1); BILIRUBIN,TOTAL 0.8 mg/dL (0.2-1.3); POTASSIUM 6.6 mmol/L (3.6-5.2); TOTAL PROTEIN 6.3 g/dL (6.3-8.3)
[2016-11-01 21:49] LABS: CALCIUM 8.2 mg/dl (8.6-10.4); MAGNESIUM 2.4 mg/dL (1.6-2.3)
[2016-11-01 21:52] LABS: INR 1.7
[2016-11-01 23:31] LABS: BASOPHIL 1 % (0-2); METAMYELOCYTE 19 % (0-0); MYELOCYTE 9 % (0-0); NEUTROPHIL 13 % (50-75); TOTAL CELLS COUNTED 100
[2016-11-01] MEDS ORDERED: Albumin Human 25% (12.5 gm/50 ml) IV ONE (23:57)
[2016-11-02] MEDS: (Novolog) Insulin Aspart, Recombinant 100 u/ml 10 ml vial SC SCH ×4 (00:17→18:30)
[2016-11-02 01:37] LABS: VENOUS BLOOD GAS PCO2 26 mmHg (40-60); VENOUS BLOOD PH 7.42 (7.32-7.43)
[2016-11-02 01:42] LABS: BASO % 0.4 % (0.0-2.0); EOS % 0.3 % (0.0-4.0); HEMATOCRIT 29.4 % (34.0-47.0); LYMPH # 1.5 K/uL (1.0-4.3); LYMPH % 12.6 % (20.0-40.0); MEAN CORPUSCULAR HGB CONC 31.5 g/dL (33.0-37.0); MEAN PLATELET VOLUME 9.2 fL (7.2-11.7); MONO # 0.6 K/uL (0.0-0.8); MONO % 4.7 % (0.0-10.0); NRBC % 0.1 % (0.0-2.0); RED CELL DISTRIBUTION WIDTH 14.4 % (11.5-14.5); WHITE BLOOD COUNT 12.2 K/uL (4.8-10.8)
[2016-11-02 01:52] LABS: BILIRUBIN,TOTAL 0.8 mg/dL (0.2-1.3)
[2016-11-02 01:53] LABS: ALB/GLOB RATIO 0.7 (1.0-2.1); CALCIUM 8.1 mg/dl (8.6-10.4); MAGNESIUM 2.3 mg/dL (1.6-2.3); PHOSPHOROUS 5.1 mg/dL (2.5-4.5); TOTAL PROTEIN 5.9 g/dL (6.3-8.3)
[2016-11-02 02:07] LABS: POTASSIUM 6.4 mmol/L (3.6-5.2)
[2016-11-02] MEDS: Sodium Chloride 0.9% 1,000 ML IV SCH ×4 (03:36→22:06)
[2016-11-02] MEDS ORDERED: Sodium Polystyrene Sulfonate Enema 30 gm/120 ml PR STA (05:00)
[2016-11-02 05:43] LABS: ABG ALLEN TEST POS; ABG MECHANICAL RATE 14; ARTERIAL BLOOD HGB O2 SAT 96.7 % (95.0-98.0); ATERIAL BLOOD GAS PEEP 8; CARBOXYHEMOGLOBIN 1.2 % (0.5-1.5); DRAW SITE L RAD; HHB 1.1 % (0.0-5.0); METHEMOGLOBIN 1.1 % (0.0-3.0)
[2016-11-02 09:25] LABS: CALCIUM 8.7 mg/dl (8.6-10.4)
[2016-11-02 09:41] LABS: POTASSIUM 6.2 mmol/L (3.6-5.2)
--- NOTE | 2016-11-02 09:45 | CT ---
PROCEDURE: CT Chest, Abdomen and Pelvis without intravenous contrast HISTORY: icu request, sepsis COMPARISON: 10/08/2016 TECHNIQUE: CT scan of the abdomen and pelvis was performed after administration of oral contrast. Intravenous contrast was not administered. Coronal and sagittal reformatted images were obtained. Radiation dose: Total exam DLP = 1808.38 mGy-cm. This CT exam was performed using one or more of the following dose reduction techniques: Automated exposure control, adjustment of the mA and/or kV according to patient size, and/or use of iterative reconstruction technique. FINDINGS: CT CHEST WITHOUT CONTRAST: LUNGS: There is no significant interval change in bibasilar consolidation with air bronchograms. There is linear atelectasis in the right lower lobe. MEDIASTINUM: The aorta is not dilated. The heart is normal in size. There is no pericardial effusion. LYMPH NODES: There is no pathologic lymphadenopathy. PLEURA: There are small pleural effusions. No pneumothorax. BONES: Mild multilevel degenerative disc disease. OTHER FINDINGS: None. CT ABDOMEN AND PELVIS: LIVER: Again seen is a cirrhotic liver. GALLBLADDER AND BILE DUCTS: There are calcified gallstones. PANCREAS: There is diffuse atrophy of the pancreas. No gross lesion or ductal dilatation. SPLEEN: There is mild splenomegaly. ADRENALS: Unremarkable. No mass. KIDNEYS AND URETERS: Both kidneys are normal in size without hydronephrosis or nephrolithiasis. There is a 3.8 cm simple cyst in the left upper pole. 1.7 cm isodense exophytic lesion in the interpolar region of the left kidney is indeterminate. VASCULATURE: No aortic aneurysm. BOWEL: A gastrostomy tube terminates in the deep subcutaneous fat of the left upper quadrant and is not in the stomach. A nasogastric tube terminates in the stomach. There is mild dilatation and moderate circumferential mural thickening in the proximal jejunal loops. The distal small bowel loops are normal in caliber. The colon is unremarkable. APPENDIX: Normal appendix. PERITONEUM: There is moderate amount of free intraperitoneal air mostly in the upper abdomen and anterior to the stomach. . There is moderate amount of free fluid in the abdomen and pelvis. There is extraluminal leakage of contrast material which is identified in the paracolic gutters and more pronounced in the pelvic fluid. LYMPH NODES: Unremarkable. No enlarged lymph nodes. BLADDER: Decompressed. REPRODUCTIVE: Not visualized and likely surgically absent. BONES: No acute fracture. Mild multilevel degenerative disc disease. OTHER FINDINGS: None. IMPRESSION: 1. Moderate pneumoperitoneum and moderate free fluid in the abdomen and pelvis. The pneumoperitoneum is most pronounced in the upper abdomen anterior to the stomach and the oral contrast spillage is likely related to the stomach. A gastrostomy tubes terminates in the deep subcutaneous fat of the left upper quadrant. Mild dilatation and moderate circumferential mural thickening of the proximal jejunal loops which may be related to bursitis however nonspecific enteritis cannot be excluded 2. Cirrhosis of liver and mild splenomegaly. 3. Cholelithiasis. 4. No significant interval change in bibasilar consolidation likely representing pneumonia. A preliminary report was provided by [employer].
[2016-11-02] MEDS ORDERED: cefTRIAXone 2 GM in Sodium Chloride 0.9% 100 ML IVPB SCH (10:00)
--- NOTE | 2016-11-02 10:02 | CP.PCM.PN ---
Subjective - Date & Time of Evaluation Date of Evaluation: 11/02/16 Time of Evaluation: 09:59 - Subjective Subjective: Gen Sx: Dr Rodriguez Pt S&E. Remains unresponsive. Now on norepinephrine drip. Remains DNR. Poor surgical candidate. Consider IR drainage catheter to remove fluid from abdomen. Perhaps hospice/palliative care consult? Objective - Vital Signs/Intake and Output Vital Signs (last 24 hours): Temp Pulse Resp BP Pulse Ox 100.2 F H 110 H 34 H 124/77 92 L 11/02/16 08:00 11/02/16 09:24 11/02/16 09:24 11/02/16 09:24 11/02/16 09:24 Intake and Output: 11/02/16 11/02/16 06:59 18:59 Intake Total 1797.3 337.6 Output Total 405 25 Balance 1392.3 312.6 - Medications Medications: Current Medications Vancomycin HCl 1,000 mg/ (Sodium Chloride) 250 mls @ 166.6 mls/hr IVPB Q12H [facility]I Norepinephrine Bitartrate 8 mg (/ Sodium Chloride) 258 mls @ 7.74 mls/hr IV .Q24H PRN; Protocol; 4 MCG/MIN PRN Reason: TITRATE PER MD ORDER Last Titration: 11/02/16 00:20 Dose: 10 mcg/min, 19.35 mls/hr Sodium Chloride (Sodium Chloride 0.9%) 1,000 mls @ 150 mls/hr IV .Q6H40M [facility] Last Admin: 11/02/16 03:36 Dose: 150 mls/hr Insulin Aspart (Novolog) 0 unit SC Q6H [facility]I PRN Reason: Protocol Last Admin: 11/02/16 06:48 Dose: Not Given Pantoprazole Sodium (Protonix Inj) 40 mg IVP DAILY MINI - Labs Labs: 11/02/16 01:39 11/02/16 09:02 PT 19.6 SECONDS (9.7-12.2) H 11/01/16 21:24 INR 1.7 11/01/16 21:24 APTT 37 SECONDS (21-34) H D 11/01/16 21:24 - Constitutional Appears: In Acute Distress, Chronically Ill - Respiratory Exam Respiratory Exam: Respiratory Distress - Cardiovascular Exam Cardiovascular Exam: Tachycardia - GI/Abdominal Exam GI & Abdominal Exam: Distended, Firm - Neurological Exam Neurological Exam: absent: Alert, Awake, Oriented x3 Assessment and Plan - Assessment and Plan (Free Text) Assessment: 61F w/ dislodged PEG tube Plan: pt poor surgical candidate extremely poor prognosis consider IR drainage catheter if an intervention is necessary NGT to decompress stomach d/w Dr Michael Rodriguez, PGY2
--- NOTE | 2016-11-02 11:15 | RAD ---
PROCEDURE: CHEST RADIOGRAPH, 1 VIEW HISTORY: on vent COMPARISON: 11/01/2016 FINDINGS: There is stable position of the tracheostomy tube. The nasogastric tube terminates in the stomach. LUNGS: The lungs are clear. PLEURA: No pneumothorax or pleural fluid seen. CARDIOVASCULAR: There is mild cardiomegaly. OSSEOUS STRUCTURES: No significant abnormalities. VISUALIZED UPPER ABDOMEN: Normal. OTHER FINDINGS: None. IMPRESSION: No acute findings.
--- NOTE | 2016-11-02 16:28 | CP.CCUPN ---
CCU Subjective - Physician Review Events Since Last Encounter (Free Text): 11/02/16 16:28 patient's is still comatose, abdomen more distended today. CCU Objective - Vital Signs / Intake & Output Vital Signs (Last 4 hours): Vital Signs Pulse Resp BP Pulse Ox 11/02/16 14:24 110 H 32 H 105/69 93 L 11/02/16 13:59 108 H 33 H 99/63 L 93 L 11/02/16 13:56 107 H 31 H 99/63 L 93 L 11/02/16 13:24 108 H 32 H 122/68 93 L Intake and Output (Last 8hrs): Intake & Output 11/02/16 11/02/16 11/02/16 06:59 14:59 22:59 Intake Total 1247.3 1602.7 161.3 Output Total 205 190 40 Balance 1042.3 1412.7 121.3 Weight 246 lb Intake: IV 8 250 Intake, IV Amount 1239.3 1352.7 161.3 Right PICC 139.3 127.7 11.3 right intraosseous 1100 1225 150 Output: Gastric Amount 100 Left Nares 100 Urine 105 190 40 Urethral ([place]) 105 190 40 Other: # Bowel Movements 1 1 - Physical Exam Physical Exam Limitations: Positive for: Altered Mental Status Head: Positive for: Atraumatic, Normocephalic Pupils: Positive for: Sluggish Mouth: Positive for: Moist Mucous Membranes Respiratory/Chest: Positive for: Clear to Auscultation, Decreased Breath Sounds Cardiovascular: Positive for: Tachycardic Abdomen: Positive for: Distention Neurological: Positive for: Other (comatosse) Psychiatric: Negative for: Alert - Medications Active Medications: Active Medications Generic Name Dose Route Start Last Admin Trade Name Freq PRN Reason Stop Dose Admin Vancomycin HCl 1,000 mg/ 250 mls @ 166.6 mls/hr 11/02/16 10:00 11/02/16 10:34 Sodium Chloride IVPB 166.6 mls/hr Q12H MINI Administration Norepinephrine Bitartrate 8 mg 258 mls @ 7.74 mls/hr 11/01/16 23:33 11/02/16 13:56 / Sodium Chloride IV 5.83 mcg/min .Q24H PRN 11.3 mls/hr TITRATE PER MD ORDER Administration Protocol 4 MCG/MIN Sodium Chloride 1,000 mls @ 150 mls/hr 11/02/16 02:45 11/02/16 10:00 Sodium Chloride 0.9% IV 150 mls/hr .Q6H40M MINI Administration Acetaminophen 100 mls @ 100 mls/hr 11/02/16 16:30 Ofirmev IV 11/02/16 17:29 ONCE ONE Insulin Aspart 0 unit 11/01/16 18:00 11/02/16 12:50 Novolog SC Not Given Q6H [facility] Protocol Pantoprazole Sodium 40 mg 11/02/16 10:00 11/02/16 10:34 Protonix Inj IVP 40 mg DAILY MINI Administration - Patient Studies Lab Studies: Microbiology Studies 11/01/16 18:00 MRSA Culture (Admit) - Final Nose MRSA NOT DETECTED 11/01/16 18:30 Blood Culture - Preliminary Blood Gram Negative Jayjay Gram Stain - Final 11/01/16 18:30 Urine Culture - Preliminary Urine Staphylococcus Aureus Lab Studies 11/02/16 11/02/16 11/02/16 Range/Units 12:43 09:02 06:37 WBC (4.8-10.8) K/uL RBC (3.80-5.20) Mil/uL Hgb (11.0-16.0) g/dL Hct (34.0-47.0) % MCV (81.0-99.0) fL MCH (27.0-31.0) pg MCHC (33.0-37.0) g/dL RDW (11.5-14.5) % Plt Count (130-400) K/uL MPV (7.2-11.7) fL Neut % (Auto) (50.0-75.0) % Lymph % (Auto) (20.0-40.0) % Giles % (Auto) (0.0-10.0) % Eos % (Auto) (0.0-4.0) % Baso % (Auto) (0.0-2.0) % Neut # (1.8-7.0) K/uL Lymph # (1.0-4.3) K/uL Giles # (0.0-0.8) K/uL Eos # (0.0-0.7) K/uL Baso # (0.0-0.2) K/uL Neutrophils % (Manual) (50-75) % Band Neutrophils % (0-2) % Lymphocytes % (Manual) (20-40) % Monocytes % (Manual) (0-10) % Basophils % (Manual) (0-2) % Metamyelocytes % (0-0) % Myelocytes % (0-0) % Platelet Estimate (NORMAL) Anisocytosis (manual) PT (9.7-12.2) SECONDS INR APTT (21-34) SECONDS Puncture Site pCO2 (35-45) mm/Hg pO2 (80-100) mm/Hg HCO3 (21-28) mmol/L ABG pH (7.35-7.45) ABG Total CO2 (22-28) mmol/L ABG O2 Saturation (95-98) % ABG Base Excess (-2.0-3.0) mmol/L ABG Hemoglobin (11.7-17.4) g/dL ABG Carboxyhemoglobin (0.5-1.5) % POC ABG HHb (Measured) (0.0-5.0) % ABG Methemoglobin (0.0-3.0) % Nico Test ABG Potassium (3.6-5.2) mmol/L VBG pH (7.32-7.43) VBG pCO2 (40-60) mmHg VBG HCO3 mmol/L VBG Total CO2 (22-28) mmol/L VBG O2 Sat (Calc) (40-65) % VBG Base Excess (0.0-2.0) mmol/L VBG Potassium (3.6-5.2) mmol/L A-a O2 Difference mm/Hg Respiratory Index Hgb O2 Saturation (95.0-98.0) % Sodium 142 (132-148) mmol/l Chloride 109 H (98-107) mmol/L Glucose (65-105) mg/dl Lactate (0.7-2.1) mmol/L Mechanical Rate FiO2 % Tidal Volume PEEP Crit Value Called To Crit Value Called By Crit Value Read Back Blood Gas Notified Time Potassium 6.2 H* (3.6-5.2) mmol/L Carbon Dioxide 19 L (22-30) mmol/L Anion Gap 20 (10-20) BUN 64 H (7-17) mg/dL Creatinine 3.1 H (0.7-1.2) MG/DL Est GFR ( Amer) 18 Est GFR (Non-Af Amer) 15 POC Glucose (mg/dL) 160 H 138 H (65-110) mg/dL Random Glucose 137 H (65-105) mg/dL Calcium 8.7 (8.6-10.4) mg/dl Phosphorus (2.5-4.5) mg/dL Magnesium (1.6-2.3) mg/dL Total Bilirubin (0.2-1.3) mg/dL AST (14-36) U/L ALT (9-52) U/L Alkaline Phosphatase (38-126) U/L Total Protein (6.3-8.3) g/dL Albumin (3.5-5.0) g/dL Globulin (2.2-3.9) gm/dL Albumin/Globulin Ratio (1.0-2.1) Arterial Blood Potassium (3.6-5.2) mmol/L Venous Blood Potassium (3.6-5.2) mmol/L Urine Color (YELLOW) Urine Clarity (Clear) Urine pH (5.0-8.0) Ur Specific [place] (1.003-1.030) Urine Protein (NEGATIVE) mg/dL Urine Glucose (UA) (Normal) mg/dL Urine Ketones (NEGATIVE) mg/dL Urine Blood (NEGATIVE) Urine Nitrate (NEGATIVE) Urine Bilirubin (NEGATIVE) Urine Urobilinogen (0.2-1.0) mg/dL Ur Leukocyte Esterase (Negative) Pearl/uL Urine WBC (Auto) (0-5) /hpf Urine RBC (Auto) (0-3) /hpf Ur Squamous Epith Cells (0-5) /hpf Amorphous Sediment (<OCC) /ul Urine Bacteria (<OCC) 11/02/16 11/02/16 11/02/16 Range/Units 05:26 01:39 01:39 WBC 12.2 H (4.8-10.8) K/uL RBC 3.30 L (3.80-5.20) Mil/uL Hgb 9.2 L (11.0-16.0) g/dL Hct 29.4 L (34.0-47.0) % MCV 89.0 (81.0-99.0) fL MCH 28.0 (27.0-31.0) pg MCHC 31.5 L (33.0-37.0) g/dL RDW 14.4 (11.5-14.5) % Plt Count 269 (130-400) K/uL MPV 9.2 (7.2-11.7) fL Neut % (Auto) 82.0 H (50.0-75.0) % Lymph % (Auto) 12.6 L (20.0-40.0) % Giles % (Auto) 4.7 (0.0-10.0) % Eos % (Auto) 0.3 (0.0-4.0) % Baso % (Auto) 0.4 (0.0-2.0) % Neut # 10.0 H (1.8-7.0) K/uL Lymph # 1.5 (1.0-4.3) K/uL Giles # 0.6 (0.0-0.8) K/uL Eos # 0.0 (0.0-0.7) K/uL Baso # 0.0 (0.0-0.2) K/uL Neutrophils % (Manual) (50-75) % Band Neutrophils % (0-2) % Lymphocytes % (Manual) (20-40) % Monocytes % (Manual) (0-10) % Basophils % (Manual) (0-2) % Metamyelocytes % (0-0) % Myelocytes % (0-0) % Platelet Estimate (NORMAL) Anisocytosis (manual) PT (9.7-12.2) SECONDS INR APTT (21-34) SECONDS Puncture Site L rad pCO2 26 L (35-45) mm/Hg pO2 125 H (80-100) mm/Hg HCO3 21.5 (21-28) mmol/L ABG pH 7.46 H (7.35-7.45) ABG Total CO2 19.3 L (22-28) mmol/L ABG O2 Saturation 98.9 H (95-98) % ABG Base Excess -4.4 L (-2.0-3.0) mmol/L ABG Hemoglobin 9.5 L (11.7-17.4) g/dL ABG Carboxyhemoglobin 1.2 (0.5-1.5) % POC ABG HHb (Measured) 1.1 (0.0-5.0) % ABG Methemoglobin 1.1 (0.0-3.0) % Nico Test Pos ABG Potassium (3.6-5.2) mmol/L VBG pH (7.32-7.43) VBG pCO2 (40-60) mmHg VBG HCO3 mmol/L VBG Total CO2 (22-28) mmol/L VBG O2 Sat (Calc) (40-65) % VBG Base Excess (0.0-2.0) mmol/L VBG Potassium (3.6-5.2) mmol/L A-a O2 Difference 377.0 mm/Hg Respiratory Index 3.0 Hgb O2 Saturation 96.7 (95.0-98.0) % Sodium 141 (132-148) mmol/l Chloride 109 H (98-107) mmol/L Glucose (65-105) mg/dl Lactate (0.7-2.1) mmol/L Mechanical Rate 14 FiO2 75.0 % Tidal Volume 550 PEEP 8 Crit Value Called To Crit Value Called By Crit Value Read Back Blood Gas Notified Time Potassium 6.4 H* (3.6-5.2) mmol/L Carbon Dioxide 17 L (22-30) mmol/L Anion Gap 21 H (10-20) BUN 59 H (7-17) mg/dL Creatinine 2.9 H (0.7-1.2) MG/DL Est GFR ( Amer) 20 Est GFR (Non-Af Amer) 16 POC Glucose (mg/dL) (65-110) mg/dL Random Glucose 116 H (65-105) mg/dL Calcium 8.1 L (8.6-10.4) mg/dl Phosphorus 5.1 H (2.5-4.5) mg/dL Magnesium 2.3 (1.6-2.3) mg/dL Total Bilirubin 0.8 (0.2-1.3) mg/dL AST 37 H (14-36) U/L ALT 22 (9-52) U/L Alkaline Phosphatase 107 (38-126) U/L Total Protein 5.9 L (6.3-8.3) g/dL Albumin 2.5 L (3.5-5.0) g/dL Globulin 3.5 (2.2-3.9) gm/dL Albumin/Globulin Ratio 0.7 L (1.0-2.1) Arterial Blood Potassium (3.6-5.2) mmol/L Venous Blood Potassium (3.6-5.2) mmol/L Urine Color (YELLOW) Urine Clarity (Clear) Urine pH (5.0-8.0) Ur Specific [place] (1.003-1.030) Urine Protein (NEGATIVE) mg/dL Urine Glucose (UA) (Normal) mg/dL Urine Ketones (NEGATIVE) mg/dL Urine Blood (NEGATIVE) Urine Nitrate (NEGATIVE) Urine Bilirubin (NEGATIVE) Urine Urobilinogen (0.2-1.0) mg/dL Ur Leukocyte Esterase (Negative) Pearl/uL Urine WBC (Auto) (0-5) /hpf Urine RBC (Auto) (0-3) /hpf Ur Squamous Epith Cells (0-5) /hpf Amorphous Sediment (<OCC) /ul Urine Bacteria (<OCC) 11/02/16 11/02/16 11/01/16 Range/Units 01:31 00:00 21:24 WBC (4.8-10.8) K/uL RBC (3.80-5.20) Mil/uL Hgb (11.0-16.0) g/dL Hct (34.0-47.0) % MCV (81.0-99.0) fL MCH (27.0-31.0) pg MCHC (33.0-37.0) g/dL RDW (11.5-14.5) % Plt Count (130-400) K/uL MPV (7.2-11.7) fL Neut % (Auto) (50.0-75.0) % Lymph % (Auto) (20.0-40.0) % Giles % (Auto) (0.0-10.0) % Eos % (Auto) (0.0-4.0) % Baso % (Auto) (0.0-2.0) % Neut # (1.8-7.0) K/uL Lymph # (1.0-4.3) K/uL Giles # (0.0-0.8) K/uL Eos # (0.0-0.7) K/uL Baso # (0.0-0.2) K/uL Neutrophils % (Manual) (50-75) % Band Neutrophils % (0-2) % Lymphocytes % (Manual) (20-40) % Monocytes % (Manual) (0-10) % Basophils % (Manual) (0-2) % Metamyelocytes % (0-0) % Myelocytes % (0-0) % Platelet Estimate (NORMAL) Anisocytosis (manual) PT (9.7-12.2) SECONDS INR APTT (21-34) SECONDS Puncture Site pCO2 (35-45) mm/Hg pO2 41 (80-100) mm/Hg HCO3 (21-28) mmol/L ABG pH (7.35-7.45) ABG Total CO2 (22-28) mmol/L ABG O2 Saturation (95-98) % ABG Base Excess (-2.0-3.0) mmol/L ABG Hemoglobin (11.7-17.4) g/dL ABG Carboxyhemoglobin (0.5-1.5) % POC ABG HHb (Measured) (0.0-5.0) % ABG Methemoglobin (0.0-3.0) % Nico Test ABG Potassium (3.6-5.2) mmol/L VBG pH 7.42 (7.32-7.43) VBG pCO2 26 L (40-60) mmHg VBG HCO3 19.7 mmol/L VBG Total CO2 17.7 L (22-28) mmol/L VBG O2 Sat (Calc) 80.9 H (40-65) % VBG Base Excess -6.0 L (0.0-2.0) mmol/L VBG Potassium 6.3 H* (3.6-5.2) mmol/L A-a O2 Difference 461.0 mm/Hg Respiratory Index Hgb O2 Saturation (95.0-98.0) % Sodium 139.0 139 (132-148) mmol/l Chloride 107.0 107 (98-107) mmol/L Glucose 107 H (65-105) mg/dl Lactate 4.5 H* (0.7-2.1) mmol/L Mechanical Rate FiO2 75.0 % Tidal Volume PEEP 8 Crit Value Called To Amber gonzalez rn Crit Value Called By Amber torrez rt Crit Value Read Back Y Blood Gas Notified Time 140 Potassium 6.6 H* (3.6-5.2) mmol/L Carbon Dioxide 16 L (22-30) mmol/L Anion Gap 23 H (10-20) BUN 58 H (7-17) mg/dL Creatinine 2.7 H (0.7-1.2) MG/DL Est GFR ( Amer) 22 Est GFR (Non-Af Amer) 18 POC Glucose (mg/dL) 107 (65-110) mg/dL Random Glucose 111 H (65-105) mg/dL Calcium 8.2 L (8.6-10.4) mg/dl Phosphorus (2.5-4.5) mg/dL Magnesium 2.4 H (1.6-2.3) mg/dL Total Bilirubin 0.8 (0.2-1.3) mg/dL AST 32 (14-36) U/L ALT 17 (9-52) U/L Alkaline Phosphatase 106 (38-126) U/L Total Protein 6.3 (6.3-8.3) g/dL Albumin 2.7 L (3.5-5.0) g/dL Globulin 3.6 (2.2-3.9) gm/dL Albumin/Globulin Ratio 0.7 L (1.0-2.1) Arterial Blood Potassium (3.6-5.2) mmol/L Venous Blood Potassium 6.3 H* (3.6-5.2) mmol/L Urine Color (YELLOW) Urine Clarity (Clear) Urine pH (5.0-8.0) Ur Specific [place] (1.003-1.030) Urine Protein (NEGATIVE) mg/dL Urine Glucose (UA) (Normal) mg/dL Urine Ketones (NEGATIVE) mg/dL Urine Blood (NEGATIVE) Urine Nitrate (NEGATIVE) Urine Bilirubin (NEGATIVE) Urine Urobilinogen (0.2-1.0) mg/dL Ur Leukocyte Esterase (Negative) Pearl/uL Urine WBC (Auto) (0-5) /hpf Urine RBC (Auto) (0-3) /hpf Ur Squamous Epith Cells (0-5) /hpf Amorphous Sediment (<OCC) /ul Urine Bacteria (<OCC) 11/01/16 11/01/16 11/01/16 Range/Units 21:24 21:24 20:49 WBC 10.0 (4.8-10.8) K/uL RBC 3.47 L (3.80-5.20) Mil/uL Hgb 10.0 L (11.0-16.0) g/dL Hct 30.9 L (34.0-47.0) % MCV 89.0 (81.0-99.0) fL MCH 28.7 (27.0-31.0) pg MCHC 32.3 L (33.0-37.0) g/dL RDW 14.6 H (11.5-14.5) % Plt Count 279 (130-400) K/uL MPV 9.3 (7.2-11.7) fL Neut % (Auto) 78.9 H (50.0-75.0) % Lymph % (Auto) 14.9 L (20.0-40.0) % Giles % (Auto) 5.8 (0.0-10.0) % Eos % (Auto) 0.3 (0.0-4.0) % Baso % (Auto) 0.1 (0.0-2.0) % Neut # 7.9 H (1.8-7.0) K/uL Lymph # 1.5 (1.0-4.3) K/uL Giles # 0.6 (0.0-0.8) K/uL Eos # 0.0 (0.0-0.7) K/uL Baso # 0.0 (0.0-0.2) K/uL Neutrophils % (Manual) 13 L (50-75) % Band Neutrophils % 32 H* (0-2) % Lymphocytes % (Manual) 25 (20-40) % Monocytes % (Manual) 1 (0-10) % Basophils % (Manual) 1 (0-2) % Metamyelocytes % 19 H (0-0) % Myelocytes % 9 H (0-0) % Platelet Estimate Normal (NORMAL) Anisocytosis (manual) Slight PT 19.6 H (9.7-12.2) SECONDS INR 1.7 APTT 37 H D (21-34) SECONDS Puncture Site Lra pCO2 17 L* (35-45) mm/Hg pO2 92 (80-100) mm/Hg HCO3 20.1 L (21-28) mmol/L ABG pH 7.52 H (7.35-7.45) ABG Total CO2 14.4 L (22-28) mmol/L ABG O2 Saturation 100.4 H (95-98) % ABG Base Excess -6.2 L (-2.0-3.0) mmol/L ABG Hemoglobin (11.7-17.4) g/dL ABG Carboxyhemoglobin (0.5-1.5) % POC ABG HHb (Measured) (0.0-5.0) % ABG Methemoglobin (0.0-3.0) % Nico Test Pos ABG Potassium 9.3 H* (3.6-5.2) mmol/L VBG pH (7.32-7.43) VBG pCO2 (40-60) mmHg VBG HCO3 mmol/L VBG Total CO2 (22-28) mmol/L VBG O2 Sat (Calc) (40-65) % VBG Base Excess (0.0-2.0) mmol/L VBG Potassium (3.6-5.2) mmol/L A-a O2 Difference 422.0 mm/Hg Respiratory Index 4.6 Hgb O2 Saturation (95.0-98.0) % Sodium 140.0 (132-148) mmol/l Chloride 118.0 H (98-107) mmol/L Glucose 100 (65-105) mg/dl Lactate 5.3 H* (0.7-2.1) mmol/L Mechanical Rate 14 FiO2 75.0 % Tidal Volume 450 PEEP 8 Crit Value Called To Dr sierra Crit Value Called By Gabe alba road grader operator Crit Value Read Back Y Blood Gas Notified Time 2052 Potassium (3.6-5.2) mmol/L Carbon Dioxide (22-30) mmol/L Anion Gap (10-20) BUN (7-17) mg/dL Creatinine (0.7-1.2) MG/DL Est GFR ( Amer) Est GFR (Non-Af Amer) POC Glucose (mg/dL) (65-110) mg/dL Random Glucose (65-105) mg/dL Calcium (8.6-10.4) mg/dl Phosphorus (2.5-4.5) mg/dL Magnesium (1.6-2.3) mg/dL Total Bilirubin (0.2-1.3) mg/dL AST (14-36) U/L ALT (9-52) U/L Alkaline Phosphatase (38-126) U/L Total Protein (6.3-8.3) g/dL Albumin (3.5-5.0) g/dL Globulin (2.2-3.9) gm/dL Albumin/Globulin Ratio (1.0-2.1) Arterial Blood Potassium 9.3 H* (3.6-5.2) mmol/L Venous Blood Potassium (3.6-5.2) mmol/L Urine Color (YELLOW) Urine Clarity (Clear) Urine pH (5.0-8.0) Ur Specific [place] (1.003-1.030) Urine Protein (NEGATIVE) mg/dL Urine Glucose (UA) (Normal) mg/dL Urine Ketones (NEGATIVE) mg/dL Urine Blood (NEGATIVE) Urine Nitrate (NEGATIVE) Urine Bilirubin (NEGATIVE) Urine Urobilinogen (0.2-1.0) mg/dL Ur Leukocyte Esterase (Negative) Pearl/uL Urine WBC (Auto) (0-5) /hpf Urine RBC (Auto) (0-3) /hpf Ur Squamous Epith Cells (0-5) /hpf Amorphous Sediment (<OCC) /ul Urine Bacteria (<OCC) 11/01/16 11/01/16 Range/Units 18:19 18:09 WBC (4.8-10.8) K/uL RBC (3.80-5.20) Mil/uL Hgb (11.0-16.0) g/dL Hct (34.0-47.0) % MCV (81.0-99.0) fL MCH (27.0-31.0) pg MCHC (33.0-37.0) g/dL RDW (11.5-14.5) % Plt Count (130-400) K/uL MPV (7.2-11.7) fL Neut % (Auto) (50.0-75.0) % Lymph % (Auto) (20.0-40.0) % Giles % (Auto) (0.0-10.0) % Eos % (Auto) (0.0-4.0) % Baso % (Auto) (0.0-2.0) % Neut # (1.8-7.0) K/uL Lymph # (1.0-4.3) K/uL Giles # (0.0-0.8) K/uL Eos # (0.0-0.7) K/uL Baso # (0.0-0.2) K/uL Neutrophils % (Manual) (50-75) % Band Neutrophils % (0-2) % Lymphocytes % (Manual) (20-40) % Monocytes % (Manual) (0-10) % Basophils % (Manual) (0-2) % Metamyelocytes % (0-0) % Myelocytes % (0-0) % Platelet Estimate (NORMAL) Anisocytosis (manual) PT (9.7-12.2) SECONDS INR APTT (21-34) SECONDS Puncture Site Lra pCO2 24 L (35-45) mm/Hg pO2 68 L (80-100) mm/Hg HCO3 20.6 L (21-28) mmol/L ABG pH 7.45 (7.35-7.45) ABG Total CO2 17.4 L (22-28) mmol/L ABG O2 Saturation 95.9 (95-98) % ABG Base Excess -5.5 L (-2.0-3.0) mmol/L ABG Hemoglobin (11.7-17.4) g/dL ABG Carboxyhemoglobin (0.5-1.5) % POC ABG HHb (Measured) (0.0-5.0) % ABG Methemoglobin (0.0-3.0) % Nico Test Pos ABG Potassium 6.4 H* (3.6-5.2) mmol/L VBG pH (7.32-7.43) VBG pCO2 (40-60) mmHg VBG HCO3 mmol/L VBG Total CO2 (22-28) mmol/L VBG O2 Sat (Calc) (40-65) % VBG Base Excess (0.0-2.0) mmol/L VBG Potassium (3.6-5.2) mmol/L A-a O2 Difference 223.0 mm/Hg Respiratory Index 3.3 Hgb O2 Saturation (95.0-98.0) % Sodium 139.0 (132-148) mmol/l Chloride 111.0 H (98-107) mmol/L Glucose 106 H (65-105) mg/dl Lactate 5.4 H* (0.7-2.1) mmol/L Mechanical Rate 14 FiO2 45.0 % Tidal Volume 450 PEEP 5 Crit Value Called To Dr roblero Crit Value Called By Gabe alba road grader operator Crit Value Read Back Y Blood Gas Notified Time 1821 Potassium (3.6-5.2) mmol/L Carbon Dioxide (22-30) mmol/L Anion Gap (10-20) BUN (7-17) mg/dL Creatinine (0.7-1.2) MG/DL Est GFR ( Amer) Est GFR (Non-Af Amer) POC Glucose (mg/dL) (65-110) mg/dL Random Glucose (65-105) mg/dL Calcium (8.6-10.4) mg/dl Phosphorus (2.5-4.5) mg/dL Magnesium (1.6-2.3) mg/dL Total Bilirubin (0.2-1.3) mg/dL AST (14-36) U/L ALT (9-52) U/L Alkaline Phosphatase (38-126) U/L Total Protein (6.3-8.3) g/dL Albumin (3.5-5.0) g/dL Globulin (2.2-3.9) gm/dL Albumin/Globulin Ratio (1.0-2.1) Arterial Blood Potassium 6.4 H* (3.6-5.2) mmol/L Venous Blood Potassium (3.6-5.2) mmol/L Urine Color Yellow (YELLOW) Urine Clarity Cloudy (Clear) Urine pH 5.0 (5.0-8.0) Ur Specific [place] 1.025 (1.003-1.030) Urine Protein > 300 (NEGATIVE) mg/dL Urine Glucose (UA) 100 (Normal) mg/dL Urine Ketones 15 (NEGATIVE) mg/dL Urine Blood Large (NEGATIVE) Urine Nitrate Positive H (NEGATIVE) Urine Bilirubin Small (NEGATIVE) Urine Urobilinogen 0.2 (0.2-1.0) mg/dL Ur Leukocyte Esterase Negative (Negative) Pearl/uL Urine WBC (Auto) 7 H (0-5) /hpf Urine RBC (Auto) 50 H (0-3) /hpf Ur Squamous Epith Cells 3 (0-5) /hpf Amorphous Sediment Occ H (<OCC) /ul Urine Bacteria Occ H (<OCC) Laboratory Results - last 24 hr 0611/01/16 11/01/16 18:09 18:19 20:49 WBC RBC Hgb Hct MCV MCH MCHC RDW Plt Count MPV Neut % (Auto) Lymph % (Auto) Giles % (Auto) Eos % (Auto) Baso % (Auto) Neut # Lymph # Giles # Eos # Baso # Neutrophils % (Manual) Band Neutrophils % Lymphocytes % (Manual) Monocytes % (Manual) Basophils % (Manual) Metamyelocytes % Myelocytes % Platelet Estimate Anisocytosis (manual) PT INR APTT Puncture Site Lra Lra pCO2 24 L 17 L* pO2 68 L 92 HCO3 20.6 L 20.1 L ABG pH 7.45 7.52 H ABG Total CO2 17.4 L 14.4 L ABG O2 Saturation 95.9 100.4 H ABG Base Excess -5.5 L -6.2 L ABG Hemoglobin ABG Carboxyhemoglobin POC ABG HHb (Measured) ABG Methemoglobin Nico Test Pos Pos ABG Potassium 6.4 H* 9.3 H* VBG pH VBG pCO2 VBG HCO3 VBG Total CO2 VBG O2 Sat (Calc) VBG Base Excess VBG Potassium A-a O2 Difference 223.0 422.0 Respiratory Index 3.3 4.6 Hgb O2 Saturation Sodium 139.0 140.0 Chloride 111.0 H 118.0 H Glucose 106 H 100 Lactate 5.4 H* 5.3 H* Mechanical Rate 14 14 FiO2 45.0 75.0 Tidal Volume 450 450 PEEP 5 8 Crit Value Called To Dr annika sierra Crit Value Called By Gaeb alba road grader operator Gabe alba road grader operator Crit Value Read Back Y Y Blood Gas Notified Time 1821 2052 Potassium Carbon Dioxide Anion Gap BUN Creatinine Est GFR ( Amer) Est GFR (Non-Af Amer) POC Glucose (mg/dL) Random Glucose Calcium Phosphorus Magnesium Total Bilirubin AST ALT Alkaline Phosphatase Total Protein Albumin Globulin Albumin/Globulin Ratio Arterial Blood Potassium 6.4 H* 9.3 H* Venous Blood Potassium Urine Color Yellow Urine Clarity Cloudy Urine pH 5.0 Ur Specific [place] 1.025 Urine Protein > 300 Urine Glucose (UA) 100 Urine Ketones 15 Urine Blood Large Urine Nitrate Positive H Urine Bilirubin Small Urine Urobilinogen 0.2 Ur Leukocyte Esterase Negative Urine WBC (Auto) 7 H Urine RBC (Auto) 50 H Ur Squamous Epith Cells 3 Amorphous Sediment Occ H Urine Bacteria Occ H 11/01/16 11/01/16 11/01/16 21:24 21:24 21:24 WBC 10.0 RBC 3.47 L Hgb 10.0 L Hct 30.9 L MCV 89.0 MCH 28.7 MCHC 32.3 L RDW 14.6 H Plt Count 279 MPV 9.3 Neut % (Auto) 78.9 H Lymph % (Auto) 14.9 L Giles % (Auto) 5.8 Eos % (Auto) 0.3 Baso % (Auto) 0.1 Neut # 7.9 H Lymph # 1.5 Giles # 0.6 Eos # 0.0 Baso # 0.0 Neutrophils % (Manual) 13 L Band Neutrophils % 32 H* Lymphocytes % (Manual) 25 Monocytes % (Manual) 1 Basophils % (Manual) 1 Metamyelocytes % 19 H Myelocytes % 9 H Platelet Estimate Normal Anisocytosis (manual) Slight PT 19.6 H INR 1.7 APTT 37 H D Puncture Site pCO2 pO2 HCO3 ABG pH ABG Total CO2 ABG O2 Saturation ABG Base Excess ABG Hemoglobin ABG Carboxyhemoglobin POC ABG HHb (Measured) ABG Methemoglobin Nico Test ABG Potassium VBG pH VBG pCO2 VBG HCO3 VBG Total CO2 VBG O2 Sat (Calc) VBG Base Excess VBG Potassium A-a O2 Difference Respiratory Index Hgb O2 Saturation Sodium 139 Chloride 107 Glucose Lactate Mechanical Rate FiO2 Tidal Volume PEEP Crit Value Called To Crit Value Called By Crit Value Read Back Blood Gas Notified Time Potassium 6.6 H* Carbon Dioxide 16 L Anion Gap 23 H BUN 58 H Creatinine 2.7 H Est GFR ( Amer) 22 Est GFR (Non-Af Amer) 18 POC Glucose (mg/dL) Random Glucose 111 H Calcium 8.2 L Phosphorus Magnesium 2.4 H Total Bilirubin 0.8 AST 32 ALT 17 Alkaline Phosphatase 106 Total Protein 6.3 Albumin 2.7 L Globulin 3.6 Albumin/Globulin Ratio 0.7 L Arterial Blood Potassium Venous Blood Potassium Urine Color Urine Clarity Urine pH Ur Specific [place] Urine Protein Urine Glucose (UA) Urine Ketones Urine Blood Urine Nitrate Urine Bilirubin Urine Urobilinogen Ur Leukocyte Esterase Urine WBC (Auto) Urine RBC (Auto) Ur Squamous Epith Cells Amorphous Sediment Urine Bacteria 11/02/16 11/02/16 11/02/16 00:00 01:31 01:39 WBC 12.2 H RBC 3.30 L Hgb 9.2 L Hct 29.4 L MCV 89.0 MCH 28.0 MCHC 31.5 L RDW 14.4 Plt Count 269 MPV 9.2 Neut % (Auto) 82.0 H Lymph % (Auto) 12.6 L Giles % (Auto) 4.7 Eos % (Auto) 0.3 Baso % (Auto) 0.4 Neut # 10.0 H Lymph # 1.5 Giles # 0.6 Eos # 0.0 Baso # 0.0 Neutrophils % (Manual) Band Neutrophils % Lymphocytes % (Manual) Monocytes % (Manual) Basophils % (Manual) Metamyelocytes % Myelocytes % Platelet Estimate Anisocytosis (manual) PT INR APTT Puncture Site pCO2 pO2 41 HCO3 ABG pH ABG Total CO2 ABG O2 Saturation ABG Base Excess ABG Hemoglobin ABG Carboxyhemoglobin POC ABG HHb (Measured) ABG Methemoglobin Nico Test ABG Potassium VBG pH 7.42 VBG pCO2 26 L VBG HCO3 19.7 VBG Total CO2 17.7 L VBG O2 Sat (Calc) 80.9 H VBG Base Excess -6.0 L VBG Potassium 6.3 H* A-a O2 Difference 461.0 Respiratory Index Hgb O2 Saturation Sodium 139.0 Chloride 107.0 Glucose 107 H Lactate 4.5 H* Mechanical Rate FiO2 75.0 Tidal Volume PEEP 8 Crit Value Called To Amber gonzalez rn Crit Value Called By Amber torrez rt Crit Value Read Back Y Blood Gas Notified Time 140 Potassium Carbon Dioxide Anion Gap BUN Creatinine Est GFR ( Amer) Est GFR (Non-Af Amer) POC Glucose (mg/dL) 107 Random Glucose Calcium Phosphorus Magnesium Total Bilirubin AST ALT Alkaline Phosphatase Total Protein Albumin Globulin Albumin/Globulin Ratio Arterial Blood Potassium Venous Blood Potassium 6.3 H* Urine Color Urine Clarity Urine pH Ur Specific [place] Urine Protein Urine Glucose (UA) Urine Ketones Urine Blood Urine Nitrate Urine Bilirubin Urine Urobilinogen Ur Leukocyte Esterase Urine WBC (Auto) Urine RBC (Auto) Ur Squamous Epith Cells Amorphous Sediment Urine Bacteria 11/02/16 11/02/16 11/02/16 01:39 05:26 06:37 WBC RBC Hgb Hct MCV MCH MCHC RDW Plt Count MPV Neut % (Auto) Lymph % (Auto) Giles % (Auto) Eos % (Auto) Baso % (Auto) Neut # Lymph # Giles # Eos # Baso # Neutrophils % (Manual) Band Neutrophils % Lymphocytes % (Manual) Monocytes % (Manual) Basophils % (Manual) Metamyelocytes % Myelocytes % Platelet Estimate Anisocytosis (manual) PT INR APTT Puncture Site L rad pCO2 26 L pO2 125 H HCO3 21.5 ABG pH 7.46 H ABG Total CO2 19.3 L ABG O2 Saturation 98.9 H ABG Base Excess -4.4 L ABG Hemoglobin 9.5 L ABG Carboxyhemoglobin 1.2 POC ABG HHb (Measured) 1.1 ABG Methemoglobin 1.1 Nico Test Pos ABG Potassium VBG pH VBG pCO2 VBG HCO3 VBG Total CO2 VBG O2 Sat (Calc) VBG Base Excess VBG Potassium A-a O2 Difference 377.0 Respiratory Index 3.0 Hgb O2 Saturation 96.7 Sodium 141 Chloride 109 H Glucose Lactate Mechanical Rate 14 FiO2 75.0 Tidal Volume 550 PEEP 8 Crit Value Called To Crit Value Called By Crit Value Read Back Blood Gas Notified Time Potassium 6.4 H* Carbon Dioxide 17 L Anion Gap 21 H BUN 59 H Creatinine 2.9 H Est GFR ( Amer) 20 Est GFR (Non-Af Amer) 16 POC Glucose (mg/dL) 138 H Random Glucose 116 H Calcium 8.1 L Phosphorus 5.1 H Magnesium 2.3 Total Bilirubin 0.8 AST 37 H ALT 22 Alkaline Phosphatase 107 Total Protein 5.9 L Albumin 2.5 L Globulin 3.5 Albumin/Globulin Ratio 0.7 L Arterial Blood Potassium Venous Blood Potassium Urine Color Urine Clarity Urine pH Ur Specific [place] Urine Protein Urine Glucose (UA) Urine Ketones Urine Blood Urine Nitrate Urine Bilirubin Urine Urobilinogen Ur Leukocyte Esterase Urine WBC (Auto) Urine RBC (Auto) Ur Squamous Epith Cells Amorphous Sediment Urine Bacteria 11/02/16 11/02/16 09:02 12:43 WBC RBC Hgb Hct MCV MCH MCHC RDW Plt Count MPV Neut % (Auto) Lymph % (Auto) Giles % (Auto) Eos % (Auto) Baso % (Auto) Neut # Lymph # Giles # Eos # Baso # Neutrophils % (Manual) Band Neutrophils % Lymphocytes % (Manual) Monocytes % (Manual) Basophils % (Manual) Metamyelocytes % Myelocytes % Platelet Estimate Anisocytosis (manual) PT INR APTT Puncture Site pCO2 pO2 HCO3 ABG pH ABG Total CO2 ABG O2 Saturation ABG Base Excess ABG Hemoglobin ABG Carboxyhemoglobin POC ABG HHb (Measured) ABG Methemoglobin Nico Test ABG Potassium VBG pH VBG pCO2 VBG HCO3 VBG Total CO2 VBG O2 Sat (Calc) VBG Base Excess VBG Potassium A-a O2 Difference Respiratory Index Hgb O2 Saturation Sodium 142 Chloride 109 H Glucose Lactate Mechanical Rate FiO2 Tidal Volume PEEP Crit Value Called To Crit Value Called By Crit Value Read Back Blood Gas Notified Time Potassium 6.2 H* Carbon Dioxide 19 L Anion Gap 20 BUN 64 H Creatinine 3.1 H Est GFR ( Amer) 18 Est GFR (Non-Af Amer) 15 POC Glucose (mg/dL) 160 H Random Glucose 137 H Calcium 8.7 Phosphorus Magnesium Total Bilirubin AST ALT Alkaline Phosphatase Total Protein Albumin Globulin Albumin/Globulin Ratio Arterial Blood Potassium Venous Blood Potassium Urine Color Urine Clarity Urine pH Ur Specific [place] Urine Protein Urine Glucose (UA) Urine Ketones Urine Blood Urine Nitrate Urine Bilirubin Urine Urobilinogen Ur Leukocyte Esterase Urine WBC (Auto) Urine RBC (Auto) Ur Squamous Epith Cells Amorphous Sediment Urine Bacteria Fingerstick Blood Sugar Results: 160 Review of Systems - Review of Systems Systems not reviewed;Unavailable: Altered Mental Status Critical Care Progress Note - Ventilator Checklist Head of Bed 30 Degrees: Yes Daily Sedation Vacation: No (no sedation) Daily Assessment of Readiness to Wean: Yes Daily Spontaneous Breathing Trial: No (not alert) PUD Prophalyxis: Yes DVT Prophylaxis: Yes Assessment/Plan (1) Small bowel obstruction Assessment and plan: 61yo F. PMHx of Asthma, HTN, HLD, DM, septic embolic strokes with subsequent comatose state. Pt was brought in for distended abdomen, vomiting and possible bowel obstruction. Neuro: No improvement from previous admission, patient still comatose. Pulm: Chronic respiratory failure,on PRVC via trach CV: Hypotensive, will monitor. Patient received Zamora should saline boluses and ED, we'll continue aggressive fluid hydration. Hem:anemia of critical illness Renal: Oliguric acute kidney injury. 1/2NS+75meqSB@150. Hyperkalemia, patient given calcium chloride, insulin, D50, Kayexalate. Repeat BMP. Patient will not be a good candidate for dialysis if necessary. Endo: DM type II, short acting insulin sliding scale for coverage. GI: Nothing by mouth, patient's abdomen is more distended today. CT abdomen showed dislodged PEG tube with probable tube feeds spilled into abdomen. ID: Severe sepsis, source uncertain DVT proph - heparin subcutaneous GI proph - protonix zamora for strict I/O's during acute illness Code status - full code patient is critically ill, with high mortality risk. Extremely poor prognosis. Will try to discuss with family about goals of care. after a long discussion with the family it was decided to make patient comfort care. Crtical Care Time spent 35 minutes Multi-disciplinary rounds were performed with house staff, nursing, speech therapy, respiratory therapy, pharmacy and nutrition with integrated input from the primary team/attending and other consulting services. The documented time is cumulative and includes review of patient data/exams/labs/chart review and examination of the patient on rounds and throughout the day; time is exclusive of any procedures or teaching time. Current Visit: Yes Status: Acute
--- NOTE | 2016-11-02 21:42 | HP ---
CHIEF COMPLAINT: Vomiting and abdominal distension. HISTORY OF PRESENT ILLNESS: The patient is a 61-year-old lady brought from ICU for evaluation of a distended abdomen, vomiting and possibly bowel obstruction. As per EMS and facility paper, patient has history of vent dependent respiratory failure, meningitis, hypertension, hypercholesterolemia, COPD, asthma. The patient at baseline is obtunded and nonverbal since leaving [facility] approximately 1 week ago. The patient is not able to give a review of systems or any H and P, but I got information from the ER documentation. The patient was having shortness of breath also. PAST MEDICAL HISTORY: Anemia, anxiety, arthritis, asthma, congestive heart failure, COPD, depression, diabetes mellitus, hypertension, hypercholesterolemia , migraine, sections. FAMILY HISTORY: Cannot obtain. SOCIAL HISTORY: As per papers. No smoking, no drugs, no ethanol. REVIEW OF SYSTEMS: Cannot be obtained secondary to patient's inability to answer the questions, but looks like does not have a fever. PHYSICAL EXAMINATION: VITAL SIGNS: Temperature 102.2, pulse 114, blood pressure 120/60, respiratory rate of 32. HEENT: Head normocephalic. Eyes closed. Nose patent. Mucous membranes moist. NECK: Supple. Has trach. LUNGS: Clear to auscultation. HEART: S1, S2 positive. ABDOMEN: Soft, protruded. No organomegaly. EXTREMITIES: No edema, no cyanosis. NEUROLOGIC: The patient is a type of comatose, obtunded. Cannot get complete neurological examination. MEDICATIONS: Norepinephrine, NovoLog, Protonix, NS, vancomycin. LABORATORY DATA: White blood cells 12.2, hemoglobin 9.2, hematocrit 29.4, platelets 269. Sodium 142, potassium 6.2, BUN 54, creatinine 3.1, glucose 160. ASSESSMENT AND PLAN: The patient is a 61-year-old lady with leukocytosis, anemia, hyperkalemia, renal insufficiency, hyperglycemia, hypocalcemia, hyperphosphatemia, abnormal liver function tests, urinary tract infection, was admitted in the intensive care unit. The patient has small-bowel obstruction, history of asthma, hypertension, hypercholesterolemia, diabetes mellitus, septic emboli, stroke with subsequent comatose state. The patient has distended abdomen. Neurologically no improvement from the previous admission. The patient is still comatose. The patient had respiratory failure on pressure- regulated volume control via trach. Anemia of critical illness, oliguria, acute kidney injury. The patient is n.p.o. CT showed dislodged percutaneous endoscopic gastrostomy tube with possibility of feeding spilling into the abdomen, severe sepsis, source unknown. The patient is getting heparin subcutaneous for deep venous thrombosis prophylaxis. Getting Protonix intravenous. The patient is critically ill with high mortality risk, extremely poor prognosis. After prolonged discussion with the family, as per intensive care unit, plan was to make the patient comfort care. I appreciate input. We will follow up. Carmen Maguire MD cc: [id number] TT: 11/02/2016 21:42:10 arina URBINA
[2016-11-02] MEDS ORDERED: Meropenem 1 GM in Sodium Chloride 0.9% 100 ML IVPB ONE (22:30)
[2016-11-03] MEDS: (Novolog) Insulin Aspart, Recombinant 100 u/ml 10 ml vial SC SCH ×4 (00:03→17:45)
[2016-11-03] MEDS: Sodium Chloride 0.9% 1,000 ML IV SCH ×4 (04:24→21:24)
[2016-11-03 06:22] LABS: BASO # 0.1 K/uL (0.0-0.2); BASO % 0.7 % (0.0-2.0); EOS % 0.4 % (0.0-4.0); HEMATOCRIT 26.1 % (34.0-47.0); LYMPH # 1.2 K/uL (1.0-4.3); MEAN CORPUSCULAR HEMOGLOBIN 28.4 pg (27.0-31.0); MEAN CORPUSCULAR HGB CONC 31.6 g/dL (33.0-37.0); MEAN PLATELET VOLUME 9.2 fL (7.2-11.7); MONO # 0.3 K/uL (0.0-0.8); MONO % 4.3 % (0.0-10.0); NRBC % 0.2 % (0.0-2.0); PLATELET COUNT 223 K/uL (130-400); RED CELL DISTRIBUTION WIDTH 15.1 % (11.5-14.5); WHITE BLOOD COUNT 8.1 K/uL (4.8-10.8)
[2016-11-03 06:32] LABS: POTASSIUM 4.7 mmol/L (3.6-5.2)
[2016-11-03 06:34] LABS: BILIRUBIN,TOTAL 0.8 mg/dL (0.2-1.3)
[2016-11-03 06:35] LABS: ALB/GLOB RATIO 0.8 (1.0-2.1); CALCIUM 8.6 mg/dl (8.6-10.4); MAGNESIUM 2.3 mg/dL (1.6-2.3); PHOSPHOROUS 6.1 mg/dL (2.5-4.5); TOTAL PROTEIN 5.8 g/dL (6.3-8.3)
[2016-11-03 06:35] LABS: ABG ALLEN TEST POS; ABG MECHANICAL RATE 14; ARTERIAL BLOOD HGB O2 SAT 95.8 % (95.0-98.0); ATERIAL BLOOD GAS PEEP 5; CARBOXYHEMOGLOBIN 1.2 % (0.5-1.5); DRAW SITE RRADIAL; HHB 2.2 % (0.0-5.0); METHEMOGLOBIN 0.8 % (0.0-3.0)
--- NOTE | 2016-11-03 09:19 | RAD ---
HISTORY: COMPARISON: 11/02/2016. TECHNIQUE: Chest AP view FINDINGS: LINES AND TUBES: There is stable position of the tracheostomy tube. The nasogastric tube terminates in the stomach. LUNGS AND PLEURA: Lungs are clear. There are no pleural effusions or pneumothorax. HEART AND MEDIASTINUM: The lungs are clear there is persistent cardiomegaly. The hilar and mediastinal contours are within normal limits. SKELETAL STRUCTURES: The bony structures are within normal limits for the patient's age. VISUALIZED UPPER ABDOMEN: Normal. OTHER FINDINGS: None. IMPRESSION: No acute findings.
--- NOTE | 2016-11-03 09:59 | CP.PCM.PN ---
Subjective - Date & Time of Evaluation Date of Evaluation: 11/03/16 Time of Evaluation: 09:57 - Subjective Subjective: Surgery: Dr. Rodriguez Pt seen and examined. Remains unresponsive, on vent, and on pressors. Objective - Vital Signs/Intake and Output Vital Signs (last 24 hours): Temp Pulse Resp BP Pulse Ox 99.9 F H 104 H 23 138/67 99 11/03/16 04:00 11/03/16 07:00 11/03/16 07:00 11/03/16 06:45 11/03/16 07:00 Intake and Output: 11/03/16 11/03/16 06:59 18:59 Intake Total 1998.8 159.4 Output Total 810 80 Balance 1188.8 79.4 - Medications Medications: Current Medications Vancomycin HCl 1,000 mg/ (Sodium Chloride) 250 mls @ 166.6 mls/hr IVPB Q12H [facility] Last Admin: 11/03/16 09:52 Dose: 166.6 mls/hr Norepinephrine Bitartrate 8 mg (/ Sodium Chloride) 258 mls @ 7.74 mls/hr IV .Q24H PRN; Protocol; 4 MCG/MIN PRN Reason: TITRATE PER MD ORDER Last Titration: 11/03/16 07:33 Dose: 2.89 mcg/min, 5.6 mls/hr Sodium Chloride (Sodium Chloride 0.9%) 1,000 mls @ 150 mls/hr IV .Q6H40M [facility] Last Admin: 11/03/16 04:24 Dose: 150 mls/hr Insulin Aspart (Novolog) 0 unit SC Q6H MINI PRN Reason: Protocol Last Admin: 11/03/16 06:19 Dose: 2 unit Pantoprazole Sodium (Protonix Inj) 40 mg IVP DAILY [facility] Last Admin: 11/03/16 09:52 Dose: 40 mg - Labs Labs: 11/03/16 06:16 11/03/16 06:16 PT 19.6 SECONDS (9.7-12.2) H 11/01/16 21:24 INR 1.7 11/01/16 21:24 APTT 37 SECONDS (21-34) H D 11/01/16 21:24 - Constitutional Appears: No Acute Distress - Head Exam Head Exam: ATRAUMATIC, NORMOCEPHALIC - Neck Exam Additional comments: trach - Respiratory Exam Additional comments: on vent - GI/Abdominal Exam GI & Abdominal Exam: Distended, Firm. absent: Guarding, Rigid, Soft, Tenderness , Rebound - Neurological Exam Neurological Exam: absent: Alert, Awake, Oriented x3 Assessment and Plan - Assessment and Plan (Free Text) Assessment: 61F in comatose state 2/2 septic emboli, now with dislodged PEG tube -Per Dr. Roa's note on 11/02, family has decided to make patient comfort care -surgery will sign off -please reconsult if needed -d/w attending Ankushitis PGY2
[2016-11-03 10:57] LABS: METAMYELOCYTE 2 % (0-0); MYELOCYTE 1 % (0-0); NEUTROPHIL 53 % (50-75); TOTAL CELLS COUNTED 100
[2016-11-03] MEDS ORDERED: Acetaminophen IV 1,000 MG in Premixed IV 1 EA IV ONE (11:12)
--- NOTE | 2016-11-03 16:06 | PN ---
DATE: 11/03/2016 SUBJECTIVE: The patient was seen and examined on the bedside. The patient unresponsive, on vent, on pressor, not improving. REVIEW OF SYSTEMS: Is not able to give review of systems. PHYSICAL EXAMINATION: VITAL SIGNS: Temperature 99.9, pulse 104, respiration 23, blood pressure 138/67 , pulse oximetry 99. HEAD: Normocephalic, atraumatic. Eyes closed. Nose patent. Mucous membranes moist. Is on ventilator. NECK: Supple. LUNGS: Positive wheezing bilaterally. HEART: S1, S2 positive. ABDOMEN: Tense. No organomegaly. EXTREMITIES: Positive edema. NEUROLOGIC: The patient is comatose, cannot do neurological examination. MEDICATIONS: Vancomycin, norepinephrine, insulin, pantoprazole. ASSESSMENT AND PLAN: The patient is a 61-year-old lady with anemia, renal insufficiency, hyperglycemia, hyperchloremia, comatose state, 2 x 2 septic emboli, with dislodged percutaneous endoscopic gastrostomy tube. As per s notes, family decided to make patient comfort care. Surgery already signed off. Chest x-ray reviewed by me. No acute finding on the chest x-ray. Waiting for the comfort care team for evaluation. The patient is still in the unit. Grave prognosis. We will follow up. Carmen Maguire MD cc: [id number] TT: 11/03/2016 16:05:40 Confirmation # [id number] Dictation # [id number] sn MTDD
--- NOTE | 2016-11-03 17:56 | CP.CCUPN ---
CCU Subjective - Physician Review Events Since Last Encounter (Free Text): 11/03/16 17:54 Patient remains comatose to NG tube secretions noted. On ventilator. Hypotensive. On vancomycin. Received meropenem IVrning CCU Objective - Vital Signs / Intake & Output Intake and Output (Last 8hrs): Intake & Output 11/03/16 11/03/16 11/03/16 06:59 14:59 22:59 Intake Total 1249.6 887.4 Output Total 655 300 Balance 594.6 587.4 Weight 251 lb 5.231 oz Intake: IV 0 0 Intake, IV Amount 1249.6 887.4 Right PICC 99.6 37.4 right intraosseous 1150 850 Output: Gastric Amount 50 Left Nares 50 Urine 655 250 Urethral (Santiago) 655 250 Other: # Bowel Movements 0 0 - Physical Exam Narrative Physical Exam (Free Text): 11/03/16 17:55 Patient comatose to, unresponsive Head: Positive for: Atraumatic, Normocephalic Pupils: Positive for: Sluggish Mouth: Positive for: Moist Mucous Membranes Respiratory/Chest: Positive for: Clear to Auscultation, Decreased Breath Sounds Cardiovascular: Positive for: Tachycardic Abdomen: Positive for: Distention Neurological: Positive for: Other (comatosse) Psychiatric: Negative for: Alert - Medications Active Medications: Active Medications Generic Name Dose Route Start Last Admin Trade Name Freq PRN Reason Stop Dose Admin Vancomycin HCl 1,000 mg/ 250 mls @ 166.6 mls/hr 11/02/16 10:00 11/03/16 09:52 Sodium Chloride IVPB 166.6 mls/hr Q12H MINI Administration Norepinephrine Bitartrate 8 mg 258 mls @ 7.74 mls/hr 11/01/16 23:33 11/03/16 07:33 / Sodium Chloride IV 2.89 mcg/min .Q24H PRN 5.6 mls/hr TITRATE PER MD ORDER Titration Protocol 4 MCG/MIN Sodium Chloride 1,000 mls @ 150 mls/hr 11/02/16 02:45 11/03/16 14:21 Sodium Chloride 0.9% IV 150 mls/hr .Q6H40M MINI Administration Insulin Aspart 0 unit 11/01/16 18:00 11/03/16 17:45 Novolog SC 2 unit Q6H MINI Administration Protocol Pantoprazole Sodium 40 mg 11/02/16 10:00 11/03/16 09:52 Protonix Inj IVP 40 mg DAILY MINI Administration - Patient Studies Lab Studies: Microbiology Studies 11/01/16 18:30 Blood Culture - Preliminary Blood Gram Positive Cocci Gram Stain - Final 11/01/16 18:30 S.aureus & Coag-Neg Staph PNA FISH - Final Blood Blood Culture - Preliminary Gram Positive Cocci Gram Stain - Final 11/01/16 18:30 Urine Culture - Final Urine Staphylococcus Aureus 11/01/16 18:00 MRSA Culture (Admit) - Final Nose MRSA NOT DETECTED Lab Studies 11/03/16 11/03/16 11/03/16 Range/Units 17:42 11:54 06:16 WBC (4.8-10.8) K/uL RBC (3.80-5.20) Mil/uL Hgb (11.0-16.0) g/dL Hct (34.0-47.0) % MCV (81.0-99.0) fL MCH (27.0-31.0) pg MCHC (33.0-37.0) g/dL RDW (11.5-14.5) % Plt Count (130-400) K/uL MPV (7.2-11.7) fL Neut % (Auto) (50.0-75.0) % Lymph % (Auto) (20.0-40.0) % Sterling % (Auto) (0.0-10.0) % Eos % (Auto) (0.0-4.0) % Baso % (Auto) (0.0-2.0) % Neut # (1.8-7.0) K/uL Lymph # (1.0-4.3) K/uL Sterling # (0.0-0.8) K/uL Eos # (0.0-0.7) K/uL Baso # (0.0-0.2) K/uL Neutrophils % (Manual) (50-75) % Band Neutrophils % (0-2) % Lymphocytes % (Manual) (20-40) % Monocytes % (Manual) (0-10) % Metamyelocytes % (0-0) % Myelocytes % (0-0) % Platelet Estimate (NORMAL) Anisocytosis (manual) Puncture Site pCO2 (35-45) mm/Hg pO2 (80-100) mm/Hg HCO3 (21-28) mmol/L ABG pH (7.35-7.45) ABG Total CO2 (22-28) mmol/L ABG O2 Saturation (95-98) % ABG Base Excess (-2.0-3.0) mmol/L ABG Hemoglobin (11.7-17.4) g/dL ABG Carboxyhemoglobin (0.5-1.5) % POC ABG HHb (Measured) (0.0-5.0) % ABG Methemoglobin (0.0-3.0) % Nico Test A-a O2 Difference mm/Hg Respiratory Index Hgb O2 Saturation (95.0-98.0) % Mechanical Rate FiO2 % Tidal Volume PEEP Sodium 142 (132-148) mmol/L Potassium 4.7 (3.6-5.2) mmol/L Chloride 110 H (98-107) mmol/L Carbon Dioxide 18 L (22-30) mmol/L Anion Gap 19 (10-20) BUN 70 H (7-17) mg/dL Creatinine 2.7 H (0.7-1.2) MG/DL Est GFR ( Amer) 22 Est GFR (Non-Af Amer) 18 POC Glucose (mg/dL) 159 H 182 H (65-110) mg/dL Random Glucose 163 H (65-105) mg/dL Calcium 8.6 (8.6-10.4) mg/dl Phosphorus 6.1 H (2.5-4.5) mg/dL Magnesium 2.3 (1.6-2.3) mg/dL Total Bilirubin 0.8 (0.2-1.3) mg/dL AST 51 H D (14-36) U/L ALT 28 (9-52) U/L Alkaline Phosphatase 114 (38-126) U/L Total Protein 5.8 L (6.3-8.3) g/dL Albumin 2.5 L (3.5-5.0) g/dL Globulin 3.3 (2.2-3.9) gm/dL Albumin/Globulin Ratio 0.8 L (1.0-2.1) 11/03/16 11/03/16 11/03/16 Range/Units 06:16 06:10 05:55 WBC 8.1 (4.8-10.8) K/uL RBC 2.90 L (3.80-5.20) Mil/uL Hgb 8.3 L (11.0-16.0) g/dL Hct 26.1 L (34.0-47.0) % MCV 90.0 (81.0-99.0) fL MCH 28.4 (27.0-31.0) pg MCHC 31.6 L (33.0-37.0) g/dL RDW 15.1 H (11.5-14.5) % Plt Count 223 (130-400) K/uL MPV 9.2 (7.2-11.7) fL Neut % (Auto) 79.6 H (50.0-75.0) % Lymph % (Auto) 15.0 L (20.0-40.0) % Sterling % (Auto) 4.3 (0.0-10.0) % Eos % (Auto) 0.4 (0.0-4.0) % Baso % (Auto) 0.7 (0.0-2.0) % Neut # 6.4 (1.8-7.0) K/uL Lymph # 1.2 (1.0-4.3) K/uL Sterling # 0.3 (0.0-0.8) K/uL Eos # 0.0 (0.0-0.7) K/uL Baso # 0.1 (0.0-0.2) K/uL Neutrophils % (Manual) 53 (50-75) % Band Neutrophils % 20 H* (0-2) % Lymphocytes % (Manual) 18 L (20-40) % Monocytes % (Manual) 6 (0-10) % Metamyelocytes % 2 H (0-0) % Myelocytes % 1 H (0-0) % Platelet Estimate Normal (NORMAL) Anisocytosis (manual) Slight Puncture Site Rradial pCO2 26 L (35-45) mm/Hg pO2 86 (80-100) mm/Hg HCO3 19.8 L (21-28) mmol/L ABG pH 7.42 (7.35-7.45) ABG Total CO2 17.7 L (22-28) mmol/L ABG O2 Saturation 97.8 (95-98) % ABG Base Excess -6.6 L (-2.0-3.0) mmol/L ABG Hemoglobin 8.7 L (11.7-17.4) g/dL ABG Carboxyhemoglobin 1.2 (0.5-1.5) % POC ABG HHb (Measured) 2.2 (0.0-5.0) % ABG Methemoglobin 0.8 (0.0-3.0) % Nico Test Pos A-a O2 Difference 416.0 mm/Hg Respiratory Index 4.8 Hgb O2 Saturation 95.8 (95.0-98.0) % Mechanical Rate 14 FiO2 75.0 % Tidal Volume 550 PEEP 5 Sodium (132-148) mmol/L Potassium (3.6-5.2) mmol/L Chloride (98-107) mmol/L Carbon Dioxide (22-30) mmol/L Anion Gap (10-20) BUN (7-17) mg/dL Creatinine (0.7-1.2) MG/DL Est GFR ( Amer) Est GFR (Non-Af Amer) POC Glucose (mg/dL) 196 H (65-110) mg/dL Random Glucose (65-105) mg/dL Calcium (8.6-10.4) mg/dl Phosphorus (2.5-4.5) mg/dL Magnesium (1.6-2.3) mg/dL Total Bilirubin (0.2-1.3) mg/dL AST (14-36) U/L ALT (9-52) U/L Alkaline Phosphatase (38-126) U/L Total Protein (6.3-8.3) g/dL Albumin (3.5-5.0) g/dL Globulin (2.2-3.9) gm/dL Albumin/Globulin Ratio (1.0-2.1) 11/02/16 11/02/16 Range/Units 23:55 18:37 WBC (4.8-10.8) K/uL RBC (3.80-5.20) Mil/uL Hgb (11.0-16.0) g/dL Hct (34.0-47.0) % MCV (81.0-99.0) fL MCH (27.0-31.0) pg MCHC (33.0-37.0) g/dL RDW (11.5-14.5) % Plt Count (130-400) K/uL MPV (7.2-11.7) fL Neut % (Auto) (50.0-75.0) % Lymph % (Auto) (20.0-40.0) % Sterling % (Auto) (0.0-10.0) % Eos % (Auto) (0.0-4.0) % Baso % (Auto) (0.0-2.0) % Neut # (1.8-7.0) K/uL Lymph # (1.0-4.3) K/uL Sterling # (0.0-0.8) K/uL Eos # (0.0-0.7) K/uL Baso # (0.0-0.2) K/uL Neutrophils % (Manual) (50-75) % Band Neutrophils % (0-2) % Lymphocytes % (Manual) (20-40) % Monocytes % (Manual) (0-10) % Metamyelocytes % (0-0) % Myelocytes % (0-0) % Platelet Estimate (NORMAL) Anisocytosis (manual) Puncture Site pCO2 (35-45) mm/Hg pO2 (80-100) mm/Hg HCO3 (21-28) mmol/L ABG pH (7.35-7.45) ABG Total CO2 (22-28) mmol/L ABG O2 Saturation (95-98) % ABG Base Excess (-2.0-3.0) mmol/L ABG Hemoglobin (11.7-17.4) g/dL ABG Carboxyhemoglobin (0.5-1.5) % POC ABG HHb (Measured) (0.0-5.0) % ABG Methemoglobin (0.0-3.0) % Nico Test A-a O2 Difference mm/Hg Respiratory Index Hgb O2 Saturation (95.0-98.0) % Mechanical Rate FiO2 % Tidal Volume PEEP Sodium (132-148) mmol/L Potassium (3.6-5.2) mmol/L Chloride (98-107) mmol/L Carbon Dioxide (22-30) mmol/L Anion Gap (10-20) BUN (7-17) mg/dL Creatinine (0.7-1.2) MG/DL Est GFR ( Amer) Est GFR (Non-Af Amer) POC Glucose (mg/dL) 183 H 160 H (65-110) mg/dL Random Glucose (65-105) mg/dL Calcium (8.6-10.4) mg/dl Phosphorus (2.5-4.5) mg/dL Magnesium (1.6-2.3) mg/dL Total Bilirubin (0.2-1.3) mg/dL AST (14-36) U/L ALT (9-52) U/L Alkaline Phosphatase (38-126) U/L Total Protein (6.3-8.3) g/dL Albumin (3.5-5.0) g/dL Globulin (2.2-3.9) gm/dL Albumin/Globulin Ratio (1.0-2.1) Laboratory Results - last 24 hr 11/02/16 11/02/16 11/03/16 18:37 23:55 05:55 WBC RBC Hgb Hct MCV MCH MCHC RDW Plt Count MPV Neut % (Auto) Lymph % (Auto) Sterling % (Auto) Eos % (Auto) Baso % (Auto) Neut # Lymph # Sterling # Eos # Baso # Neutrophils % (Manual) Band Neutrophils % Lymphocytes % (Manual) Monocytes % (Manual) Metamyelocytes % Myelocytes % Platelet Estimate Anisocytosis (manual) Puncture Site Rradial pCO2 26 L pO2 86 HCO3 19.8 L ABG pH 7.42 ABG Total CO2 17.7 L ABG O2 Saturation 97.8 ABG Base Excess -6.6 L ABG Hemoglobin 8.7 L ABG Carboxyhemoglobin 1.2 POC ABG HHb (Measured) 2.2 ABG Methemoglobin 0.8 Nico Test Pos A-a O2 Difference 416.0 Respiratory Index 4.8 Hgb O2 Saturation 95.8 Mechanical Rate 14 FiO2 75.0 Tidal Volume 550 PEEP 5 Sodium Potassium Chloride Carbon Dioxide Anion Gap BUN Creatinine Est GFR ( Amer) Est GFR (Non-Af Amer) POC Glucose (mg/dL) 160 H 183 H Random Glucose Calcium Phosphorus Magnesium Total Bilirubin AST ALT Alkaline Phosphatase Total Protein Albumin Globulin Albumin/Globulin Ratio 11/03/16 11/03/16 11/03/16 06:10 06:16 06:16 WBC 8.1 RBC 2.90 L Hgb 8.3 L Hct 26.1 L MCV 90.0 MCH 28.4 MCHC 31.6 L RDW 15.1 H Plt Count 223 MPV 9.2 Neut % (Auto) 79.6 H Lymph % (Auto) 15.0 L Sterling % (Auto) 4.3 Eos % (Auto) 0.4 Baso % (Auto) 0.7 Neut # 6.4 Lymph # 1.2 Sterling # 0.3 Eos # 0.0 Baso # 0.1 Neutrophils % (Manual) 53 Band Neutrophils % 20 H* Lymphocytes % (Manual) 18 L Monocytes % (Manual) 6 Metamyelocytes % 2 H Myelocytes % 1 H Platelet Estimate Normal Anisocytosis (manual) Slight Puncture Site pCO2 pO2 HCO3 ABG pH ABG Total CO2 ABG O2 Saturation ABG Base Excess ABG Hemoglobin ABG Carboxyhemoglobin POC ABG HHb (Measured) ABG Methemoglobin Nico Test A-a O2 Difference Respiratory Index Hgb O2 Saturation Mechanical Rate FiO2 Tidal Volume PEEP Sodium 142 Potassium 4.7 Chloride 110 H Carbon Dioxide 18 L Anion Gap 19 BUN 70 H Creatinine 2.7 H Est GFR ( Amer) 22 Est GFR (Non-Af Amer) 18 POC Glucose (mg/dL) 196 H Random Glucose 163 H Calcium 8.6 Phosphorus 6.1 H Magnesium 2.3 Total Bilirubin 0.8 AST 51 H D ALT 28 Alkaline Phosphatase 114 Total Protein 5.8 L Albumin 2.5 L Globulin 3.3 Albumin/Globulin Ratio 0.8 L 11/03/16 11/03/16 11:54 17:42 WBC RBC Hgb Hct MCV MCH MCHC RDW Plt Count MPV Neut % (Auto) Lymph % (Auto) Sterling % (Auto) Eos % (Auto) Baso % (Auto) Neut # Lymph # Sterling # Eos # Baso # Neutrophils % (Manual) Band Neutrophils % Lymphocytes % (Manual) Monocytes % (Manual) Metamyelocytes % Myelocytes % Platelet Estimate Anisocytosis (manual) Puncture Site pCO2 pO2 HCO3 ABG pH ABG Total CO2 ABG O2 Saturation ABG Base Excess ABG Hemoglobin ABG Carboxyhemoglobin POC ABG HHb (Measured) ABG Methemoglobin Nico Test A-a O2 Difference Respiratory Index Hgb O2 Saturation Mechanical Rate FiO2 Tidal Volume PEEP Sodium Potassium Chloride Carbon Dioxide Anion Gap BUN Creatinine Est GFR ( Amer) Est GFR (Non-Af Amer) POC Glucose (mg/dL) 182 H 159 H Random Glucose Calcium Phosphorus Magnesium Total Bilirubin AST ALT Alkaline Phosphatase Total Protein Albumin Globulin Albumin/Globulin Ratio Fingerstick Blood Sugar Results: 196 Assessment/Plan - Assessment and Plan (Free Text) Plan: Patient with the multiorgan failure, multiple infarct in the brain secondary to septic emboli. Complicated with respiratory failure. Abdominal sepsis. Bowel obstruction. Nothing by mouth. NG tube suction. Supportive care. Family opted for DNR
[2016-11-04] MEDS: (Novolog) Insulin Aspart, Recombinant 100 u/ml 10 ml vial SC SCH ×4 (00:19→17:55)
[2016-11-04] MEDS: Sodium Chloride 0.9% 1,000 ML IV SCH ×5 (01:30→22:00)
[2016-11-04 06:40] LABS: BASO % 0.1 % (0.0-2.0); EOS # 0.1 K/uL (0.0-0.7); EOS % 1.1 % (0.0-4.0); HEMATOCRIT 25.2 % (34.0-47.0); LYMPH # 1.4 K/uL (1.0-4.3); LYMPH % 16.1 % (20.0-40.0); MEAN CELL VOLUME 89.9 fL (81.0-99.0); MEAN CORPUSCULAR HEMOGLOBIN 28.7 pg (27.0-31.0); MEAN CORPUSCULAR HGB CONC 31.9 g/dL (33.0-37.0); MEAN PLATELET VOLUME 8.7 fL (7.2-11.7); MONO # 0.3 K/uL (0.0-0.8); MONO % 4.1 % (0.0-10.0); RED CELL DISTRIBUTION WIDTH 14.8 % (11.5-14.5); WHITE BLOOD COUNT 8.4 K/uL (4.8-10.8)
[2016-11-04 06:47] LABS: ABG ALLEN TEST POS; ABG MECHANICAL RATE 14; ARTERIAL BLOOD HGB O2 SAT 96.8 % (95.0-98.0); ATERIAL BLOOD GAS PEEP 8; CARBOXYHEMOGLOBIN 1.4 % (0.5-1.5); DRAW SITE RRADIAL; HHB 1.5 % (0.0-5.0); METHEMOGLOBIN 0.2 % (0.0-3.0)
[2016-11-04 06:49] LABS: POTASSIUM 3.8 mmol/L (3.6-5.2)
[2016-11-04 06:51] LABS: ALB/GLOB RATIO 0.7 (1.0-2.1); BILIRUBIN,TOTAL 0.8 mg/dL (0.2-1.3); PHOSPHOROUS 5.3 mg/dL (2.5-4.5); TOTAL PROTEIN 5.8 g/dL (6.3-8.3)
[2016-11-04 06:52] LABS: CALCIUM 8.7 mg/dl (8.6-10.4); MAGNESIUM 2.1 mg/dL (1.6-2.3)
--- NOTE | 2016-11-04 08:20 | CP.CCUPN ---
CCU Subjective - Physician Review Events Since Last Encounter (Free Text): 11/04/16 08:18 Patient's condition remains unchanged. On tracheostomy, ventilator. No response. NG tube secretions noted. Edema noted. CCU Objective - Vital Signs / Intake & Output Vital Signs (Last 4 hours): Vital Signs Pulse Resp BP Pulse Ox 11/04/16 07:00 100 H 22 94 L 11/04/16 06:58 106/58 L 11/04/16 06:00 106 H 19 97 11/04/16 05:58 109 H 22 156/85 H 11/04/16 05:00 96 11/04/16 04:58 98 H 23 108/57 L 100 Intake and Output (Last 8hrs): Intake & Output 11/03/16 11/04/16 11/04/16 22:59 06:59 14:59 Intake Total 1335.6 1200 150 Output Total 480 510 300 Balance 855.6 690 -150 Weight 252 lb 13.923 oz Intake: IV 0 Intake, IV Amount 1335.6 1200 150 R PICC 7.6 0 Right PICC 578.0 1200 150 right intraosseous 750 Output: Gastric Amount 200 250 Left Nares 200 250 Urine 280 510 50 Urethral (Santiago) 280 510 50 Oral Regurgitation 0 Other: # Voids Urethral (Santiago) 140 # Bowel Movements 0 1 0 - Physical Exam Narrative Physical Exam (Free Text): 11/04/16 08:19 Vital signs reviewed No neck vein distention noted Chest good air entry bilaterally, no wheezing or rales noted CVS regular heart sound, no murmur noted Abdomen soft, nontender. Extremities no pedal edema Patient comatose Head: Positive for: Atraumatic, Normocephalic Pupils: Positive for: Sluggish Mouth: Positive for: Moist Mucous Membranes Respiratory/Chest: Positive for: Clear to Auscultation, Decreased Breath Sounds Cardiovascular: Positive for: Tachycardic Abdomen: Positive for: Distention Neurological: Positive for: Other (comatosse) Psychiatric: Negative for: Alert - Medications Active Medications: Active Medications Generic Name Dose Route Start Last Admin Trade Name Freq PRN Reason Stop Dose Admin Vancomycin HCl 1,000 mg/ 250 mls @ 166.6 mls/hr 11/02/16 10:00 11/03/16 21:24 Sodium Chloride IVPB 166.6 mls/hr Q12H MINI Administration Norepinephrine Bitartrate 8 mg 258 mls @ 7.74 mls/hr 11/01/16 23:33 11/03/16 22:05 / Sodium Chloride IV 0 mcg/min .Q24H PRN 0 mls/hr TITRATE PER MD ORDER Titration Protocol 4 MCG/MIN Sodium Chloride 1,000 mls @ 150 mls/hr 11/02/16 02:45 11/04/16 06:25 Sodium Chloride 0.9% IV 150 mls/hr .Q6H40M MINI Administration Aztreonam 2 gm/ Sodium 100 mls @ 200 mls/hr 11/04/16 08:30 Chloride IVPB Q8H MINI Insulin Aspart 0 unit 11/01/16 18:00 11/04/16 06:33 Novolog SC 3 unit Q6H MINI Administration Protocol Pantoprazole Sodium 40 mg 11/02/16 10:00 11/03/16 09:52 Protonix Inj IVP 40 mg DAILY MINI Administration - Patient Studies Lab Studies: Microbiology Studies 11/01/16 18:30 Blood Culture - Preliminary Blood Gram Positive Cocci Gram Stain - Final 11/01/16 18:30 S.aureus & Coag-Neg Staph PNA FISH - Final Blood Blood Culture - Preliminary Gram Positive Cocci Gram Stain - Final 11/01/16 18:30 Urine Culture - Final Urine Staphylococcus Aureus Lab Studies 11/04/16 11/04/16 11/04/16 Range/Units 06:30 06:24 06:24 WBC 8.4 (4.8-10.8) K/uL RBC 2.80 L (3.80-5.20) Mil/uL Hgb 8.0 L (11.0-16.0) g/dL Hct 25.2 L (34.0-47.0) % MCV 89.9 (81.0-99.0) fL MCH 28.7 (27.0-31.0) pg MCHC 31.9 L (33.0-37.0) g/dL RDW 14.8 H (11.5-14.5) % Plt Count 211 (130-400) K/uL MPV 8.7 (7.2-11.7) fL Neut % (Auto) 78.6 H (50.0-75.0) % Lymph % (Auto) 16.1 L (20.0-40.0) % [place] % (Auto) 4.1 (0.0-10.0) % Eos % (Auto) 1.1 (0.0-4.0) % Baso % (Auto) 0.1 (0.0-2.0) % Neut # 6.6 (1.8-7.0) K/uL Lymph # 1.4 (1.0-4.3) K/uL [place] # 0.3 (0.0-0.8) K/uL Eos # 0.1 (0.0-0.7) K/uL Baso # 0.0 (0.0-0.2) K/uL Neutrophils % (Manual) (50-75) % Band Neutrophils % (0-2) % Lymphocytes % (Manual) (20-40) % Monocytes % (Manual) (0-10) % Metamyelocytes % (0-0) % Myelocytes % (0-0) % Platelet Estimate (NORMAL) Anisocytosis (manual) Puncture Site pCO2 (35-45) mm/Hg pO2 (80-100) mm/Hg HCO3 (21-28) mmol/L ABG pH (7.35-7.45) ABG Total CO2 (22-28) mmol/L ABG O2 Saturation (95-98) % ABG Base Excess (-2.0-3.0) mmol/L ABG Hemoglobin (11.7-17.4) g/dL ABG Carboxyhemoglobin (0.5-1.5) % POC ABG HHb (Measured) (0.0-5.0) % ABG Methemoglobin (0.0-3.0) % Nico Test A-a O2 Difference mm/Hg Respiratory Index Hgb O2 Saturation (95.0-98.0) % Mechanical Rate FiO2 % Tidal Volume PEEP Sodium 145 (132-148) mmol/L Potassium 3.8 (3.6-5.2) mmol/L Chloride 115 H (98-107) mmol/L Carbon Dioxide 19 L (22-30) mmol/L Anion Gap 15 (10-20) BUN 65 H (7-17) mg/dL Creatinine 1.9 H (0.7-1.2) MG/DL Est GFR ( Amer) 33 Est GFR (Non-Af Amer) 27 POC Glucose (mg/dL) 218 H (65-110) mg/dL Random Glucose 160 H (65-105) mg/dL Calcium 8.7 (8.6-10.4) mg/dl Phosphorus 5.3 H (2.5-4.5) mg/dL Magnesium 2.1 (1.6-2.3) mg/dL Total Bilirubin 0.8 (0.2-1.3) mg/dL AST 46 H (14-36) U/L ALT 27 (9-52) U/L Alkaline Phosphatase 116 (38-126) U/L Total Protein 5.8 L (6.3-8.3) g/dL Albumin 2.4 L (3.5-5.0) g/dL Globulin 3.5 (2.2-3.9) gm/dL Albumin/Globulin Ratio 0.7 L (1.0-2.1) 11/04/16 11/04/16 11/03/16 Range/Units 06:20 00:07 17:42 WBC (4.8-10.8) K/uL RBC (3.80-5.20) Mil/uL Hgb (11.0-16.0) g/dL Hct (34.0-47.0) % MCV (81.0-99.0) fL MCH (27.0-31.0) pg MCHC (33.0-37.0) g/dL RDW (11.5-14.5) % Plt Count (130-400) K/uL MPV (7.2-11.7) fL Neut % (Auto) (50.0-75.0) % Lymph % (Auto) (20.0-40.0) % [place] % (Auto) (0.0-10.0) % Eos % (Auto) (0.0-4.0) % Baso % (Auto) (0.0-2.0) % Neut # (1.8-7.0) K/uL Lymph # (1.0-4.3) K/uL [place] # (0.0-0.8) K/uL Eos # (0.0-0.7) K/uL Baso # (0.0-0.2) K/uL Neutrophils % (Manual) (50-75) % Band Neutrophils % (0-2) % Lymphocytes % (Manual) (20-40) % Monocytes % (Manual) (0-10) % Metamyelocytes % (0-0) % Myelocytes % (0-0) % Platelet Estimate (NORMAL) Anisocytosis (manual) Puncture Site Rradial pCO2 31 L (35-45) mm/Hg pO2 89 (80-100) mm/Hg HCO3 20.7 L (21-28) mmol/L ABG pH 7.39 (7.35-7.45) ABG Total CO2 19.8 L (22-28) mmol/L ABG O2 Saturation 98.5 H (95-98) % ABG Base Excess -5.5 L (-2.0-3.0) mmol/L ABG Hemoglobin 8.2 L (11.7-17.4) g/dL ABG Carboxyhemoglobin 1.4 (0.5-1.5) % POC ABG HHb (Measured) 1.5 (0.0-5.0) % ABG Methemoglobin 0.2 (0.0-3.0) % Nico Test Pos A-a O2 Difference 407.0 mm/Hg Respiratory Index 4.6 Hgb O2 Saturation 96.8 (95.0-98.0) % Mechanical Rate 14 FiO2 75.0 % Tidal Volume 550 PEEP 8 Sodium (132-148) mmol/L Potassium (3.6-5.2) mmol/L Chloride (98-107) mmol/L Carbon Dioxide (22-30) mmol/L Anion Gap (10-20) BUN (7-17) mg/dL Creatinine (0.7-1.2) MG/DL Est GFR ( Amer) Est GFR (Non-Af Amer) POC Glucose (mg/dL) 146 H 159 H (65-110) mg/dL Random Glucose (65-105) mg/dL Calcium (8.6-10.4) mg/dl Phosphorus (2.5-4.5) mg/dL Magnesium (1.6-2.3) mg/dL Total Bilirubin (0.2-1.3) mg/dL AST (14-36) U/L ALT (9-52) U/L Alkaline Phosphatase (38-126) U/L Total Protein (6.3-8.3) g/dL Albumin (3.5-5.0) g/dL Globulin (2.2-3.9) gm/dL Albumin/Globulin Ratio (1.0-2.1) 11/03/16 11/03/16 Range/Units 11:54 06:16 WBC (4.8-10.8) K/uL RBC (3.80-5.20) Mil/uL Hgb (11.0-16.0) g/dL Hct (34.0-47.0) % MCV (81.0-99.0) fL MCH (27.0-31.0) pg MCHC (33.0-37.0) g/dL RDW (11.5-14.5) % Plt Count (130-400) K/uL MPV (7.2-11.7) fL Neut % (Auto) (50.0-75.0) % Lymph % (Auto) (20.0-40.0) % [place] % (Auto) (0.0-10.0) % Eos % (Auto) (0.0-4.0) % Baso % (Auto) (0.0-2.0) % Neut # (1.8-7.0) K/uL Lymph # (1.0-4.3) K/uL [place] # (0.0-0.8) K/uL Eos # (0.0-0.7) K/uL Baso # (0.0-0.2) K/uL Neutrophils % (Manual) 53 (50-75) % Band Neutrophils % 20 H* (0-2) % Lymphocytes % (Manual) 18 L (20-40) % Monocytes % (Manual) 6 (0-10) % Metamyelocytes % 2 H (0-0) % Myelocytes % 1 H (0-0) % Platelet Estimate Normal (NORMAL) Anisocytosis (manual) Slight Puncture Site pCO2 (35-45) mm/Hg pO2 (80-100) mm/Hg HCO3 (21-28) mmol/L ABG pH (7.35-7.45) ABG Total CO2 (22-28) mmol/L ABG O2 Saturation (95-98) % ABG Base Excess (-2.0-3.0) mmol/L ABG Hemoglobin (11.7-17.4) g/dL ABG Carboxyhemoglobin (0.5-1.5) % POC ABG HHb (Measured) (0.0-5.0) % ABG Methemoglobin (0.0-3.0) % Nico Test A-a O2 Difference mm/Hg Respiratory Index Hgb O2 Saturation (95.0-98.0) % Mechanical Rate FiO2 % Tidal Volume PEEP Sodium (132-148) mmol/L Potassium (3.6-5.2) mmol/L Chloride (98-107) mmol/L Carbon Dioxide (22-30) mmol/L Anion Gap (10-20) BUN (7-17) mg/dL Creatinine (0.7-1.2) MG/DL Est GFR ( Amer) Est GFR (Non-Af Amer) POC Glucose (mg/dL) 182 H (65-110) mg/dL Random Glucose (65-105) mg/dL Calcium (8.6-10.4) mg/dl Phosphorus (2.5-4.5) mg/dL Magnesium (1.6-2.3) mg/dL Total Bilirubin (0.2-1.3) mg/dL AST (14-36) U/L ALT (9-52) U/L Alkaline Phosphatase (38-126) U/L Total Protein (6.3-8.3) g/dL Albumin (3.5-5.0) g/dL Globulin (2.2-3.9) gm/dL Albumin/Globulin Ratio (1.0-2.1) Laboratory Results - last 24 hr 11/03/16 11/03/16 11/03/16 06:16 11:54 17:42 WBC RBC Hgb Hct MCV MCH MCHC RDW Plt Count MPV Neut % (Auto) Lymph % (Auto) [place] % (Auto) Eos % (Auto) Baso % (Auto) Neut # Lymph # [place] # Eos # Baso # Neutrophils % (Manual) 53 Band Neutrophils % 20 H* Lymphocytes % (Manual) 18 L Monocytes % (Manual) 6 Metamyelocytes % 2 H Myelocytes % 1 H Platelet Estimate Normal Anisocytosis (manual) Slight Puncture Site pCO2 pO2 HCO3 ABG pH ABG Total CO2 ABG O2 Saturation ABG Base Excess ABG Hemoglobin ABG Carboxyhemoglobin POC ABG HHb (Measured) ABG Methemoglobin Nico Test A-a O2 Difference Respiratory Index Hgb O2 Saturation Mechanical Rate FiO2 Tidal Volume PEEP Sodium Potassium Chloride Carbon Dioxide Anion Gap BUN Creatinine Est GFR ( Amer) Est GFR (Non-Af Amer) POC Glucose (mg/dL) 182 H 159 H Random Glucose Calcium Phosphorus Magnesium Total Bilirubin AST ALT Alkaline Phosphatase Total Protein Albumin Globulin Albumin/Globulin Ratio 11/04/16 11/04/16 11/04/16 00:07 06:20 06:24 WBC 8.4 RBC 2.80 L Hgb 8.0 L Hct 25.2 L MCV 89.9 MCH 28.7 MCHC 31.9 L RDW 14.8 H Plt Count 211 MPV 8.7 Neut % (Auto) 78.6 H Lymph % (Auto) 16.1 L [place] % (Auto) 4.1 Eos % (Auto) 1.1 Baso % (Auto) 0.1 Neut # 6.6 Lymph # 1.4 [place] # 0.3 Eos # 0.1 Baso # 0.0 Neutrophils % (Manual) Band Neutrophils % Lymphocytes % (Manual) Monocytes % (Manual) Metamyelocytes % Myelocytes % Platelet Estimate Anisocytosis (manual) Puncture Site Rradial pCO2 31 L pO2 89 HCO3 20.7 L ABG pH 7.39 ABG Total CO2 19.8 L ABG O2 Saturation 98.5 H ABG Base Excess -5.5 L ABG Hemoglobin 8.2 L ABG Carboxyhemoglobin 1.4 POC ABG HHb (Measured) 1.5 ABG Methemoglobin 0.2 Nico Test Pos A-a O2 Difference 407.0 Respiratory Index 4.6 Hgb O2 Saturation 96.8 Mechanical Rate 14 FiO2 75.0 Tidal Volume 550 PEEP 8 Sodium Potassium Chloride Carbon Dioxide Anion Gap BUN Creatinine Est GFR ( Amer) Est GFR (Non-Af Amer) POC Glucose (mg/dL) 146 H Random Glucose Calcium Phosphorus Magnesium Total Bilirubin AST ALT Alkaline Phosphatase Total Protein Albumin Globulin Albumin/Globulin Ratio 11/04/16 11/04/16 06:24 06:30 WBC RBC Hgb Hct MCV MCH MCHC RDW Plt Count MPV Neut % (Auto) Lymph % (Auto) [place] % (Auto) Eos % (Auto) Baso % (Auto) Neut # Lymph # [place] # Eos # Baso # Neutrophils % (Manual) Band Neutrophils % Lymphocytes % (Manual) Monocytes % (Manual) Metamyelocytes % Myelocytes % Platelet Estimate Anisocytosis (manual) Puncture Site pCO2 pO2 HCO3 ABG pH ABG Total CO2 ABG O2 Saturation ABG Base Excess ABG Hemoglobin ABG Carboxyhemoglobin POC ABG HHb (Measured) ABG Methemoglobin Nico Test A-a O2 Difference Respiratory Index Hgb O2 Saturation Mechanical Rate FiO2 Tidal Volume PEEP Sodium 145 Potassium 3.8 Chloride 115 H Carbon Dioxide 19 L Anion Gap 15 BUN 65 H Creatinine 1.9 H Est GFR ( Amer) 33 Est GFR (Non-Af Amer) 27 POC Glucose (mg/dL) 218 H Random Glucose 160 H Calcium 8.7 Phosphorus 5.3 H Magnesium 2.1 Total Bilirubin 0.8 AST 46 H ALT 27 Alkaline Phosphatase 116 Total Protein 5.8 L Albumin 2.4 L Globulin 3.5 Albumin/Globulin Ratio 0.7 L Fingerstick Blood Sugar Results: 218 Assessment/Plan - Assessment and Plan (Free Text) Assessment: 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 Respiratory failure, altered mental status, intubated. Status post a tracheostomy. Ileus. Sepsis likely. So far no organisms. We'll continue the antibiotic, supportive care, patient is a DNR, family will decide about further treatment
[2016-11-04] MEDS: Aztreonam 2 GM in Sodium Chloride 0.9% 100 ML IVPB SCH ×2 (09:24→17:22)
--- NOTE | 2016-11-04 22:57 | PN ---
DATE: 11/04/2016 SUBJECTIVE: The patient seen and examined on the bedside, looks comfortable. No change in the status. He is not able to give a review of systems. Still is on ventilator. Has tracheostomy tube. Not responsive. NG tube secretions are noted. Has swelling of the leg. No fever, no chills. PHYSICAL EXAMINATION: VITAL SIGNS: Blood pressure 106/58, pulse oximetry 94, respiratory rate 22, pulse oximetry 100. HEENT: Head normocephalic, atraumatic. Eyes closed. Nose patent. Mucous membranes moist. NECK: Supple. No carotid bruit. LUNGS: Clear to auscultation and decreased breath sounds. HEART: S1, S2 positive. ABDOMEN: Distended. NEUROLOGIC: The patient is comatose. EXTREMITIES: Positive edema. MEDICATIONS: Vancomycin, norepinephrine, azithromycin, insulin, Protonix. LABORATORY DATA: White blood cell 8.4, hemoglobin 8.0, hematocrit 25.2, and platelets 211. Sodium 145, potassium 3.8, BUN 55, creatinine 1.9. Glucose 190 , 160, 218. ASSESSMENT AND PLAN: History of leukocytosis improving, anemia, renal insufficiency, diabetes mellitus, hyperphosphatemia, urinary tract infection. The patient is comatose. Respiratory failure on respirator with a trach, had multiple ischemic strokes secondary to septic emboli, complicated with meningitis, altered mental status, ileus, Will continue antibiotics, supportive care. The patient is DNR. Carmen Maguire MD cc: [id number] TT: 11/04/2016 22:56:48 Confirmation # [id number] Dictation # [id number]
[2016-11-05] MEDS: Aztreonam 2 GM in Sodium Chloride 0.9% 100 ML IVPB SCH ×3 (00:18→15:58)
[2016-11-05] MEDS: (Novolog) Insulin Aspart, Recombinant 100 u/ml 10 ml vial SC SCH ×4 (00:44→18:03)
[2016-11-05] MEDS: Sodium Chloride 0.9% 1,000 ML IV SCH ×2 (04:16→08:26)
[2016-11-05 06:19] LABS: BASO # 0.1 K/uL (0.0-0.2); BASO % 0.5 % (0.0-2.0); EOS # 0.2 K/uL (0.0-0.7); EOS % 1.8 % (0.0-4.0); HEMATOCRIT 26.2 % (34.0-47.0); LYMPH # 1.6 K/uL (1.0-4.3); LYMPH % 12.3 % (20.0-40.0); MEAN CELL VOLUME 90.3 fL (81.0-99.0); MEAN CORPUSCULAR HEMOGLOBIN 28.7 pg (27.0-31.0); MEAN CORPUSCULAR HGB CONC 31.8 g/dL (33.0-37.0); MEAN PLATELET VOLUME 8.6 fL (7.2-11.7); MONO # 0.3 K/uL (0.0-0.8); MONO % 2.2 % (0.0-10.0); PLATELET COUNT 233 K/uL (130-400); RED CELL DISTRIBUTION WIDTH 15.2 % (11.5-14.5); WHITE BLOOD COUNT 12.7 K/uL (4.8-10.8)
[2016-11-05 06:47] LABS: CHLORIDE 119 mmol/L (98-107); POTASSIUM 3.5 mmol/L (3.6-5.2); SODIUM 149 mmol/L (132-148)
[2016-11-05 06:49] LABS: BILIRUBIN,TOTAL 0.6 mg/dL (0.2-1.3); GFR AFRICAN-AMERICAN > 60
[2016-11-05 06:50] LABS: ALB/GLOB RATIO 0.6 (1.0-2.1); ALKALINE PHOSPHATASE 130 U/L (38-126); ALT/SGPT 33 U/L (9-52); AST/SGOT 51 U/L (14-36); BLOOD UREA NITROGEN 59 mg/dL (7-17); CARBON DIOXIDE 19 mmol/L (22-30); GLUCOSE,RANDOM 153 mg/dL (65-105); PHOSPHOROUS 4.1 mg/dL (2.5-4.5); TOTAL PROTEIN 5.7 g/dL (6.3-8.3)
[2016-11-05 06:51] LABS: CALCIUM 8.8 mg/dl (8.6-10.4); MAGNESIUM 1.7 mg/dL (1.6-2.3)
--- NOTE | 2016-11-05 07:09 | CP.CCUPN ---
<Landy Monsalve - Last Filed: 11/05/16 12:22> CCU Subjective - Physician Review Subjective (Free Text): 11/05/16 12:22 Patient seen and examined at bedside No acute events overnight as per nursing Patient has trach in place on vent (75, 8, 14, 550) Patient has poor UO Clinically unchanged ROS unobtainable CCU Objective - Vital Signs / Intake & Output Vital Signs (Last 4 hours): Vital Signs Temp Pulse Resp BP Pulse Ox 11/05/16 06:00 94 H 18 99 11/05/16 05:57 94 H 22 142/73 98 11/05/16 05:00 96 H 19 98 11/05/16 04:57 97 H 19 143/72 97 11/05/16 04:00 100.3 F H 92 H 17 100 11/05/16 03:57 144/77 Intake and Output (Last 8hrs): Intake & Output 11/04/16 11/05/16 11/05/16 22:59 06:59 14:59 Intake Total 1400 1150 Output Total 645 515 Balance 755 635 Weight 254 lb 3.088 oz Intake: Intake, IV Amount 1400 1150 R PICC 100 Right PICC 1300 1150 Output: Gastric Amount 200 Left Nares 200 Urine 445 515 Urethral (Santiago) 445 515 Other: # Bowel Movements 0 1 - Physical Exam Head: Positive for: Atraumatic, Normocephalic Pupils: Positive for: Sluggish Mouth: Positive for: Moist Mucous Membranes Neck: Positive for: Other (trach in place) Respiratory/Chest: Positive for: Clear to Auscultation, Decreased Breath Sounds Cardiovascular: Positive for: Normal S1, S2, Tachycardic. Negative for: Murmurs Abdomen: Positive for: Distention, Other (PEG tube in place) Lower Extremity: Positive for: Edema Neurological: Positive for: Other (comatosse). Negative for: CN II-XII Intact, Motor Func Grossly Intact Skin: Positive for: Dry Psychiatric: Negative for: Alert, Oriented x 3 - Medications Active Medications: Active Medications Generic Name Dose Route Start Last Admin Trade Name Freq PRN Reason Stop Dose Admin Vancomycin HCl 1,000 mg/ 250 mls @ 166.6 mls/hr 11/02/16 10:00 11/04/16 22:01 Sodium Chloride IVPB 166.6 mls/hr Q12H MINI Administration Norepinephrine Bitartrate 8 mg 258 mls @ 7.74 mls/hr 11/01/16 23:33 11/03/16 22:05 / Sodium Chloride IV 0 mcg/min .Q24H PRN 0 mls/hr TITRATE PER MD ORDER Titration Protocol 4 MCG/MIN Sodium Chloride 1,000 mls @ 150 mls/hr 11/02/16 02:45 11/05/16 04:16 Sodium Chloride 0.9% IV Not Given .Q6H40M MINI Aztreonam 2 gm/ Sodium 100 mls @ 200 mls/hr 11/04/16 08:30 11/05/16 00:18 Chloride IVPB 200 mls/hr Q8H MINI Administration Insulin Aspart 0 unit 11/01/16 18:00 11/05/16 05:42 Novolog SC 3 unit Q6H MINI Administration Protocol Pantoprazole Sodium 40 mg 11/02/16 10:00 11/04/16 09:25 Protonix Inj IVP 40 mg DAILY MINI Administration - Patient Studies Lab Studies: Microbiology Studies 11/01/16 18:30 S.aureus & Coag-Neg Staph PNA FISH - Final Blood Blood Culture - Final Enterococcus Faecalis Gram Stain - Final 11/01/16 18:30 Blood Culture - Preliminary Blood Coagulase Neg Staphylococcus Gram Stain - Final Lab Studies 11/05/16 11/05/16 11/05/16 Range/Units 06:09 05:17 00:35 WBC 12.7 H D (4.8-10.8) K/uL RBC 2.90 L (3.80-5.20) Mil/uL Hgb 8.3 L (11.0-16.0) g/dL Hct 26.2 L (34.0-47.0) % MCV 90.3 (81.0-99.0) fL MCH 28.7 (27.0-31.0) pg MCHC 31.8 L (33.0-37.0) g/dL RDW 15.2 H (11.5-14.5) % Plt Count 233 (130-400) K/uL MPV 8.6 (7.2-11.7) fL Neut % (Auto) 83.2 H (50.0-75.0) % Lymph % (Auto) 12.3 L (20.0-40.0) % Lyman % (Auto) 2.2 (0.0-10.0) % Eos % (Auto) 1.8 (0.0-4.0) % Baso % (Auto) 0.5 (0.0-2.0) % Neut # 10.6 H (1.8-7.0) K/uL Lymph # 1.6 (1.0-4.3) K/uL Lyman # 0.3 (0.0-0.8) K/uL Eos # 0.2 (0.0-0.7) K/uL Baso # 0.1 (0.0-0.2) K/uL POC Glucose (mg/dL) 204 H 162 H (65-110) mg/dL 11/04/16 11/04/16 Range/Units 17:55 11:42 WBC (4.8-10.8) K/uL RBC (3.80-5.20) Mil/uL Hgb (11.0-16.0) g/dL Hct (34.0-47.0) % MCV (81.0-99.0) fL MCH (27.0-31.0) pg MCHC (33.0-37.0) g/dL RDW (11.5-14.5) % Plt Count (130-400) K/uL MPV (7.2-11.7) fL Neut % (Auto) (50.0-75.0) % Lymph % (Auto) (20.0-40.0) % Lyman % (Auto) (0.0-10.0) % Eos % (Auto) (0.0-4.0) % Baso % (Auto) (0.0-2.0) % Neut # (1.8-7.0) K/uL Lymph # (1.0-4.3) K/uL Lyman # (0.0-0.8) K/uL Eos # (0.0-0.7) K/uL Baso # (0.0-0.2) K/uL POC Glucose (mg/dL) 190 H 160 H (65-110) mg/dL Laboratory Results - last 24 hr 11/04/16 11/04/16 11/05/16 11:42 17:55 00:35 WBC RBC Hgb Hct MCV MCH MCHC RDW Plt Count MPV Neut % (Auto) Lymph % (Auto) Lyman % (Auto) Eos % (Auto) Baso % (Auto) Neut # Lymph # Lyman # Eos # Baso # POC Glucose (mg/dL) 160 H 190 H 162 H 11/05/16 11/05/16 05:17 06:09 WBC 12.7 H D RBC 2.90 L Hgb 8.3 L Hct 26.2 L MCV 90.3 MCH 28.7 MCHC 31.8 L RDW 15.2 H Plt Count 233 MPV 8.6 Neut % (Auto) 83.2 H Lymph % (Auto) 12.3 L Lyman % (Auto) 2.2 Eos % (Auto) 1.8 Baso % (Auto) 0.5 Neut # 10.6 H Lymph # 1.6 Lyman # 0.3 Eos # 0.2 Baso # 0.1 POC Glucose (mg/dL) 204 H Fingerstick Blood Sugar Results: 204 Review of Systems - Review of Systems Systems not reviewed;Unavailable: Acuity of Condition Assessment/Plan - Assessment and Plan (Free Text) Assessment: 61yo F PMHx of Asthma, HTN, HLD, DM, with 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 Head CT 11/01: negative for acute hemorrhage- redemonstrated extensive patchy low attenuation changes within deep and subcortical white matter both cerebral hemispheres. In addition more confluent low attenuation changes within the periventricular white matter. These findings are of uncertain etiology though may represent chronic of sequela of ischemia. The possibility of spuerimposed small hyperacute infarct cannot be excluded based on exam. Consider MRI. Mild moderate generalized volume loss unchanged. Pulm: Chronic respiratory failure PRVC via trach (75, 8, 14, 550) CV: Hypotensive Norepinephrine gtt 1/2 NS @ 150cc/hr Heme: anemia of critical illness Renal: Oliguric acute kidney injury BUN/Cr 59/1.1 1/2NS @ 150cc/hr Endo: DM2 Accucheck and RISS q6h GI: NPO CT abdomen showed dislodged PEG tube with probable tube feeds spilled into abdomen. Surgery signed off CT abd/pelvis: moderate pneumoperitoneum and mod free fluid in abdomen and pelvis; pneumoperitoneum is more pronounced in upper abdomen anterior to the stomach and the oral contrast spillage is likely related to the stomach. Gastrostomy tubes terminate in the deep subq fat of the L upper quadrant. Mild dilatation and moderate circumferential mural thickening of the prox jejunal loops which may be related to bursitis however nonspecific enteritis cannot be resolved; cirrhosis of liver and mild splenomegaly; cholelithiasis ID: Severe sepsis 11/01 Urine culture + S Aureus 11/01 Blood culture: E Faecalis x 1 and Coag neg staph x 1 Aztreonam 2gm ivpb q8 Vancomycin 1gm ivpb q12 DVT ppx: heparin subcutaneous GI ppx: protonix 40mg ivp daily Santiago for strict I/O's during acute illness Code status: DNR Case discussed with Dr. Yohan Monsalve PGY1 <Matteo Almanzar - Last Filed: 11/05/16 17:57> CCU Objective - Vital Signs / Intake & Output Vital Signs (Last 4 hours): Vital Signs Temp Pulse Resp BP Pulse Ox 11/05/16 17:00 101 H 21 99 11/05/16 16:33 100 H 21 138/71 99 11/05/16 16:00 99.6 F 101 H 20 99 11/05/16 15:33 93 H 20 128/65 99 11/05/16 15:00 97 H 19 99 11/05/16 14:33 99 H 19 146/70 99 11/05/16 14:00 90 22 99 Intake and Output (Last 8hrs): Intake & Output 11/05/16 11/05/16 11/05/16 06:59 14:59 22:59 Intake Total 1150 1400 550 Output Total 515 765 295 Balance 635 635 255 Weight 254 lb 3.088 oz Intake: Intake, IV Amount 1150 1400 550 R PICC 350 100 Right PICC 1150 1050 450 Output: Gastric Amount 150 Left Nares 150 Urine 515 615 295 Urethral (Santiago) 515 615 295 Other: # Bowel Movements 1 0 - Medications Active Medications: Active Medications Generic Name Dose Route Start Last Admin Trade Name Freq PRN Reason Stop Dose Admin Vancomycin HCl 1,000 mg/ 250 mls @ 166.6 mls/hr 11/02/16 10:00 11/05/16 10:08 Sodium Chloride IVPB 166.6 mls/hr Q12H MINI Administration Norepinephrine Bitartrate 8 mg 258 mls @ 7.74 mls/hr 11/01/16 23:33 11/03/16 22:05 / Sodium Chloride IV 0 mcg/min .Q24H PRN 0 mls/hr TITRATE PER MD ORDER Titration Protocol 4 MCG/MIN Aztreonam 2 gm/ Sodium 100 mls @ 200 mls/hr 11/04/16 08:30 11/05/16 15:58 Chloride IVPB 200 mls/hr Q8H MINI Administration Insulin Aspart 0 unit 11/01/16 18:00 11/05/16 11:34 Novolog SC 2 unit Q6H MINI Administration Protocol Pantoprazole Sodium 40 mg 11/02/16 10:00 11/05/16 10:30 Protonix Inj IVP 40 mg DAILY MINI Administration - Patient Studies Lab Studies: Microbiology Studies 11/01/16 18:30 Blood Culture - Final Blood Coagulase Neg Staphylococcus Gram Stain - Final Lab Studies 11/05/16 11/05/16 11/05/16 Range/Units 17:31 11:23 09:41 WBC (4.8-10.8) K/uL RBC (3.80-5.20) Mil/uL Hgb (11.0-16.0) g/dL Hct (34.0-47.0) % MCV (81.0-99.0) fL MCH (27.0-31.0) pg MCHC (33.0-37.0) g/dL RDW (11.5-14.5) % Plt Count (130-400) K/uL MPV (7.2-11.7) fL Neut % (Auto) (50.0-75.0) % Lymph % (Auto) (20.0-40.0) % Lyman % (Auto) (0.0-10.0) % Eos % (Auto) (0.0-4.0) % Baso % (Auto) (0.0-2.0) % Neut # (1.8-7.0) K/uL Lymph # (1.0-4.3) K/uL Lyman # (0.0-0.8) K/uL Eos # (0.0-0.7) K/uL Baso # (0.0-0.2) K/uL Neutrophils % (Manual) (50-75) % Band Neutrophils % (0-2) % Lymphocytes % (Manual) (20-40) % Monocytes % (Manual) (0-10) % Metamyelocytes % (0-0) % Myelocytes % (0-0) % Nucleated RBC % (0-0) % Toxic Granulation Dohle Bodies Platelet Estimate (NORMAL) Anisocytosis (manual) Sodium (132-148) mmol/L Potassium (3.6-5.2) mmol/L Chloride (98-107) mmol/L Carbon Dioxide (22-30) mmol/L Anion Gap (10-20) BUN (7-17) mg/dL Creatinine (0.7-1.2) MG/DL Est GFR ( Amer) Est GFR (Non-Af Amer) POC Glucose (mg/dL) 200 H 194 H (65-110) mg/dL Random Glucose (65-105) mg/dL Calcium (8.6-10.4) mg/dl Phosphorus (2.5-4.5) mg/dL Magnesium (1.6-2.3) mg/dL Total Bilirubin (0.2-1.3) mg/dL AST (14-36) U/L ALT (9-52) U/L Alkaline Phosphatase (38-126) U/L Total Protein (6.3-8.3) g/dL Albumin (3.5-5.0) g/dL Globulin (2.2-3.9) gm/dL Albumin/Globulin Ratio (1.0-2.1) Vancomycin Trough 28.2 H (5.0-10.0) ug/mL 11/05/16 11/05/16 11/05/16 Range/Units 06:09 06:08 05:17 WBC 12.7 H D (4.8-10.8) K/uL RBC 2.90 L (3.80-5.20) Mil/uL Hgb 8.3 L (11.0-16.0) g/dL Hct 26.2 L (34.0-47.0) % MCV 90.3 (81.0-99.0) fL MCH 28.7 (27.0-31.0) pg MCHC 31.8 L (33.0-37.0) g/dL RDW 15.2 H (11.5-14.5) % Plt Count 233 (130-400) K/uL MPV 8.6 (7.2-11.7) fL Neut % (Auto) 83.2 H (50.0-75.0) % Lymph % (Auto) 12.3 L (20.0-40.0) % Lyman % (Auto) 2.2 (0.0-10.0) % Eos % (Auto) 1.8 (0.0-4.0) % Baso % (Auto) 0.5 (0.0-2.0) % Neut # 10.6 H (1.8-7.0) K/uL Lymph # 1.6 (1.0-4.3) K/uL Lyman # 0.3 (0.0-0.8) K/uL Eos # 0.2 (0.0-0.7) K/uL Baso # 0.1 (0.0-0.2) K/uL Neutrophils % (Manual) 53 (50-75) % Band Neutrophils % 21 H* (0-2) % Lymphocytes % (Manual) 14 L (20-40) % Monocytes % (Manual) 4 (0-10) % Metamyelocytes % 3 H (0-0) % Myelocytes % 5 H (0-0) % Nucleated RBC % 1 H (0-0) % Toxic Granulation Present Dohle Bodies Present Platelet Estimate Normal (NORMAL) Anisocytosis (manual) Slight Sodium 149 H (132-148) mmol/L Potassium 3.5 L (3.6-5.2) mmol/L Chloride 119 H (98-107) mmol/L Carbon Dioxide 19 L (22-30) mmol/L Anion Gap 15 (10-20) BUN 59 H (7-17) mg/dL Creatinine 1.1 (0.7-1.2) MG/DL Est GFR ( Amer) > 60 Est GFR (Non-Af Amer) 50 POC Glucose (mg/dL) 204 H (65-110) mg/dL Random Glucose 153 H (65-105) mg/dL Calcium 8.8 (8.6-10.4) mg/dl Phosphorus 4.1 (2.5-4.5) mg/dL Magnesium 1.7 (1.6-2.3) mg/dL Total Bilirubin 0.6 (0.2-1.3) mg/dL AST 51 H (14-36) U/L ALT 33 (9-52) U/L Alkaline Phosphatase 130 H (38-126) U/L Total Protein 5.7 L (6.3-8.3) g/dL Albumin 2.1 L (3.5-5.0) g/dL Globulin 3.6 (2.2-3.9) gm/dL Albumin/Globulin Ratio 0.6 L (1.0-2.1) Vancomycin Trough (5.0-10.0) ug/mL 11/05/16 11/04/16 Range/Units 00:35 17:55 WBC (4.8-10.8) K/uL RBC (3.80-5.20) Mil/uL Hgb (11.0-16.0) g/dL Hct (34.0-47.0) % MCV (81.0-99.0) fL MCH (27.0-31.0) pg MCHC (33.0-37.0) g/dL RDW (11.5-14.5) % Plt Count (130-400) K/uL MPV (7.2-11.7) fL Neut % (Auto) (50.0-75.0) % Lymph % (Auto) (20.0-40.0) % Lyman % (Auto) (0.0-10.0) % Eos % (Auto) (0.0-4.0) % Baso % (Auto) (0.0-2.0) % Neut # (1.8-7.0) K/uL Lymph # (1.0-4.3) K/uL Lyman # (0.0-0.8) K/uL Eos # (0.0-0.7) K/uL Baso # (0.0-0.2) K/uL Neutrophils % (Manual) (50-75) % Band Neutrophils % (0-2) % Lymphocytes % (Manual) (20-40) % Monocytes % (Manual) (0-10) % Metamyelocytes % (0-0) % Myelocytes % (0-0) % Nucleated RBC % (0-0) % Toxic Granulation Dohle Bodies Platelet Estimate (NORMAL) Anisocytosis (manual) Sodium (132-148) mmol/L Potassium (3.6-5.2) mmol/L Chloride (98-107) mmol/L Carbon Dioxide (22-30) mmol/L Anion Gap (10-20) BUN (7-17) mg/dL Creatinine (0.7-1.2) MG/DL Est GFR ( Amer) Est GFR (Non-Af Amer) POC Glucose (mg/dL) 162 H 190 H (65-110) mg/dL Random Glucose (65-105) mg/dL Calcium (8.6-10.4) mg/dl Phosphorus (2.5-4.5) mg/dL Magnesium (1.6-2.3) mg/dL Total Bilirubin (0.2-1.3) mg/dL AST (14-36) U/L ALT (9-52) U/L Alkaline Phosphatase (38-126) U/L Total Protein (6.3-8.3) g/dL Albumin (3.5-5.0) g/dL Globulin (2.2-3.9) gm/dL Albumin/Globulin Ratio (1.0-2.1) Vancomycin Trough (5.0-10.0) ug/mL Laboratory Results - last 24 hr 11/04/16 11/05/16 11/05/16 17:55 00:35 05:17 WBC RBC Hgb Hct MCV MCH MCHC RDW Plt Count MPV Neut % (Auto) Lymph % (Auto) Lyman % (Auto) Eos % (Auto) Baso % (Auto) Neut # Lymph # Lyman # Eos # Baso # Neutrophils % (Manual) Band Neutrophils % Lymphocytes % (Manual) Monocytes % (Manual) Metamyelocytes % Myelocytes % Nucleated RBC % Toxic Granulation Dohle Bodies Platelet Estimate Anisocytosis (manual) Sodium Potassium Chloride Carbon Dioxide Anion Gap BUN Creatinine Est GFR ( Amer) Est GFR (Non-Af Amer) POC Glucose (mg/dL) 190 H 162 H 204 H Random Glucose Calcium Phosphorus Magnesium Total Bilirubin AST ALT Alkaline Phosphatase Total Protein Albumin Globulin Albumin/Globulin Ratio Vancomycin Trough 11/05/16 11/05/16 11/05/16 06:08 06:09 09:41 WBC 12.7 H D RBC 2.90 L Hgb 8.3 L Hct 26.2 L MCV 90.3 MCH 28.7 MCHC 31.8 L RDW 15.2 H Plt Count 233 MPV 8.6 Neut % (Auto) 83.2 H Lymph % (Auto) 12.3 L Lyman % (Auto) 2.2 Eos % (Auto) 1.8 Baso % (Auto) 0.5 Neut # 10.6 H Lymph # 1.6 Lyman # 0.3 Eos # 0.2 Baso # 0.1 Neutrophils % (Manual) 53 Band Neutrophils % 21 H* Lymphocytes % (Manual) 14 L Monocytes % (Manual) 4 Metamyelocytes % 3 H Myelocytes % 5 H Nucleated RBC % 1 H Toxic Granulation Present Dohle Bodies Present Platelet Estimate Normal Anisocytosis (manual) Slight Sodium 149 H Potassium 3.5 L Chloride 119 H Carbon Dioxide 19 L Anion Gap 15 BUN 59 H Creatinine 1.1 Est GFR ( Amer) > 60 Est GFR (Non-Af Amer) 50 POC Glucose (mg/dL) Random Glucose 153 H Calcium 8.8 Phosphorus 4.1 Magnesium 1.7 Total Bilirubin 0.6 AST 51 H ALT 33 Alkaline Phosphatase 130 H Total Protein 5.7 L Albumin 2.1 L Globulin 3.6 Albumin/Globulin Ratio 0.6 L Vancomycin Trough 28.2 H 11/05/16 11/05/16 11:23 17:31 WBC RBC Hgb Hct MCV MCH MCHC RDW Plt Count MPV Neut % (Auto) Lymph % (Auto) Lyman % (Auto) Eos % (Auto) Baso % (Auto) Neut # Lymph # Lyman # Eos # Baso # Neutrophils % (Manual) Band Neutrophils % Lymphocytes % (Manual) Monocytes % (Manual) Metamyelocytes % Myelocytes % Nucleated RBC % Toxic Granulation Dohle Bodies Platelet Estimate Anisocytosis (manual) Sodium Potassium Chloride Carbon Dioxide Anion Gap BUN Creatinine Est GFR ( Amer) Est GFR (Non-Af Amer) POC Glucose (mg/dL) 194 H 200 H Random Glucose Calcium Phosphorus Magnesium Total Bilirubin AST ALT Alkaline Phosphatase Total Protein Albumin Globulin Albumin/Globulin Ratio Vancomycin Trough Attending/Attestation - Attestation I have personally seen and examined this patient.: Yes I have fully participated in the care of the patient.: Yes I have reviewed all pertinent clinical information: Yes Notes (Text): 11/05/16 17:56 Patient seen and examined in the intensive care unit. Case discussed with house staff in the morning rounds. Awaiting family decision for terminal extubation no Change in mental status
[2016-11-05] MEDS ORDERED: Sodium Chloride 0.45% 1,000 ML IV ONE (09:30)
[2016-11-05 09:55] LABS: METAMYELOCYTE 3 % (0-0); MYELOCYTE 5 % (0-0); NEUTROPHIL 53 % (50-75); NUCLEATED RED BLOOD CELL 1 % (0-0); TOTAL CELLS COUNTED 100
[2016-11-05] MEDS: Sodium Chloride 0.45% 1,000 ML IV SCH (19:10)
[2016-11-06] MEDS: (Novolog) Insulin Aspart, Recombinant 100 u/ml 10 ml vial SC SCH ×4 (00:14→18:48)
[2016-11-06] MEDS: Aztreonam 2 GM in Sodium Chloride 0.9% 100 ML IVPB SCH ×3 (00:41→16:18)
[2016-11-06] MEDS: Sodium Chloride 0.45% 1,000 ML IV SCH ×2 (05:34→16:18)
[2016-11-06 05:42] LABS: ABG ALLEN TEST POS; ABG MECHANICAL RATE 14; ARTERIAL BLOOD HGB O2 SAT 96.4 % (95.0-98.0); ATERIAL BLOOD GAS PEEP 8; CARBOXYHEMOGLOBIN 1.6 % (0.5-1.5); DRAW SITE LR; HHB 1.2 % (0.0-5.0); METHEMOGLOBIN 0.8 % (0.0-3.0)
--- NOTE | 2016-11-06 06:14 | CP.CCUPN ---
<Arnel Chávez - Last Filed: 11/06/16 10:50> CCU Subjective - Physician Review Subjective (Free Text): 11/06/16 06:13 PGY-[address] Almanzar Pt seen and examined at bedside. Nursing reports no acute events overnight. Pt has trach in place on vent (75, 8, 14, 550). Pt with continued poor output. Clinically same. ROS unobtainable. Critical Care Time Spent (in minutes): 35 CCU Objective - Vital Signs / Intake & Output Vital Signs (Last 4 hours): Vital Signs Temp Pulse Resp BP Pulse Ox 11/06/16 04:33 111 H 26 H 162/80 H 97 11/06/16 04:00 98.9 F 11/06/16 03:33 106 H 21 155/82 H 11/06/16 02:33 106 H 23 153/84 H Intake and Output (Last 8hrs): Intake & Output 11/05/16 11/05/16 11/06/16 14:59 22:59 06:59 Intake Total 1400 1100 800 Output Total 765 655 350 Balance 635 445 450 Intake: Intake, IV Amount 1400 1100 800 R PICC 350 100 Right PICC 1050 1000 800 Output: Gastric Amount 150 100 Left Nares 150 100 Urine 615 555 350 Urethral ([place]) 615 555 350 Other: # Bowel Movements 0 - Physical Exam Head: Positive for: Atraumatic, Normocephalic Pupils: Positive for: Sluggish Mouth: Positive for: Moist Mucous Membranes Neck: Positive for: Other (trach in place) Respiratory/Chest: Positive for: Clear to Auscultation, Decreased Breath Sounds Cardiovascular: Positive for: Normal S1, S2, Tachycardic. Negative for: Murmurs Abdomen: Positive for: Distention, Other (PEG tube in place) Lower Extremity: Positive for: Edema Neurological: Positive for: Other (comatosse). Negative for: CN II-XII Intact, Motor Func Grossly Intact Skin: Positive for: Dry Psychiatric: Negative for: Alert, Oriented x 3 - Medications Active Medications: Active Medications Generic Name Dose Route Start Last Admin Trade Name Freq PRN Reason Stop Dose Admin Vancomycin HCl 1,000 mg/ 250 mls @ 166.6 mls/hr 11/02/16 10:00 11/05/16 10:08 Sodium Chloride IVPB 166.6 mls/hr Q12H MINI Administration Norepinephrine Bitartrate 8 mg 258 mls @ 7.74 mls/hr 11/01/16 23:33 11/03/16 22:05 / Sodium Chloride IV 0 mcg/min .Q24H PRN 0 mls/hr TITRATE PER MD ORDER Titration Protocol 4 MCG/MIN Aztreonam 2 gm/ Sodium 100 mls @ 200 mls/hr 11/04/16 08:30 11/06/16 00:41 Chloride IVPB 200 mls/hr Q8H MINI Administration Sodium Chloride 1,000 mls @ 100 mls/hr 11/05/16 19:00 11/06/16 05:34 Sodium Chloride 0.45% IV 100 mls/hr .Q10H MINI Administration Insulin Aspart 0 unit 11/01/16 18:00 11/06/16 00:14 Novolog SC Not Given Q6H MINI Protocol Pantoprazole Sodium 40 mg 11/02/16 10:00 11/05/16 10:30 Protonix Inj IVP 40 mg DAILY MINI Administration - Patient Studies Lab Studies: Microbiology Studies 11/01/16 18:30 Blood Culture - Final Blood Coagulase Neg Staphylococcus Gram Stain - Final Lab Studies 11/06/16 11/05/16 11/05/16 Range/Units 05:08 23:57 17:31 WBC (4.8-10.8) K/uL RBC (3.80-5.20) Mil/uL Hgb (11.0-16.0) g/dL Hct (34.0-47.0) % MCV (81.0-99.0) fL MCH (27.0-31.0) pg MCHC (33.0-37.0) g/dL RDW (11.5-14.5) % Plt Count (130-400) K/uL MPV (7.2-11.7) fL Neut % (Auto) (50.0-75.0) % Lymph % (Auto) (20.0-40.0) % [place] % (Auto) (0.0-10.0) % Eos % (Auto) (0.0-4.0) % Baso % (Auto) (0.0-2.0) % Neut # (1.8-7.0) K/uL Lymph # (1.0-4.3) K/uL [place] # (0.0-0.8) K/uL Eos # (0.0-0.7) K/uL Baso # (0.0-0.2) K/uL Neutrophils % (Manual) (50-75) % Band Neutrophils % (0-2) % Lymphocytes % (Manual) (20-40) % Monocytes % (Manual) (0-10) % Metamyelocytes % (0-0) % Myelocytes % (0-0) % Nucleated RBC % (0-0) % Toxic Granulation Dohle Bodies Platelet Estimate (NORMAL) Anisocytosis (manual) Puncture Site Lr pCO2 30 L (35-45) mm/Hg pO2 106 H (80-100) mm/Hg HCO3 19.5 L (21-28) mmol/L ABG pH 7.37 (7.35-7.45) ABG Total CO2 18.2 L (22-28) mmol/L ABG O2 Saturation 98.8 H (95-98) % ABG Base Excess -6.9 L (-2.0-3.0) mmol/L ABG Hemoglobin 10.9 L (11.7-17.4) g/dL ABG Carboxyhemoglobin 1.6 H (0.5-1.5) % POC ABG HHb (Measured) 1.2 (0.0-5.0) % ABG Methemoglobin 0.8 (0.0-3.0) % Nico Test Pos A-a O2 Difference 391.0 mm/Hg Respiratory Index 3.7 Hgb O2 Saturation 96.4 (95.0-98.0) % Mechanical Rate 14 FiO2 75.0 % Tidal Volume 550 PEEP 8 Sodium (132-148) mmol/L Potassium (3.6-5.2) mmol/L Chloride (98-107) mmol/L Carbon Dioxide (22-30) mmol/L Anion Gap (10-20) BUN (7-17) mg/dL Creatinine (0.7-1.2) MG/DL Est GFR ( Amer) Est GFR (Non-Af Amer) POC Glucose (mg/dL) 187 H 200 H (65-110) mg/dL Random Glucose (65-105) mg/dL Calcium (8.6-10.4) mg/dl Phosphorus (2.5-4.5) mg/dL Magnesium (1.6-2.3) mg/dL Total Bilirubin (0.2-1.3) mg/dL AST (14-36) U/L ALT (9-52) U/L Alkaline Phosphatase (38-126) U/L Total Protein (6.3-8.3) g/dL Albumin (3.5-5.0) g/dL Globulin (2.2-3.9) gm/dL Albumin/Globulin Ratio (1.0-2.1) Vancomycin Trough (5.0-10.0) ug/mL 11/05/16 11/05/16 11/05/16 Range/Units 11:23 09:41 06:09 WBC 12.7 H D (4.8-10.8) K/uL RBC 2.90 L (3.80-5.20) Mil/uL Hgb 8.3 L (11.0-16.0) g/dL Hct 26.2 L (34.0-47.0) % MCV 90.3 (81.0-99.0) fL MCH 28.7 (27.0-31.0) pg MCHC 31.8 L (33.0-37.0) g/dL RDW 15.2 H (11.5-14.5) % Plt Count 233 (130-400) K/uL MPV 8.6 (7.2-11.7) fL Neut % (Auto) 83.2 H (50.0-75.0) % Lymph % (Auto) 12.3 L (20.0-40.0) % [place] % (Auto) 2.2 (0.0-10.0) % Eos % (Auto) 1.8 (0.0-4.0) % Baso % (Auto) 0.5 (0.0-2.0) % Neut # 10.6 H (1.8-7.0) K/uL Lymph # 1.6 (1.0-4.3) K/uL [place] # 0.3 (0.0-0.8) K/uL Eos # 0.2 (0.0-0.7) K/uL Baso # 0.1 (0.0-0.2) K/uL Neutrophils % (Manual) 53 (50-75) % Band Neutrophils % 21 H* (0-2) % Lymphocytes % (Manual) 14 L (20-40) % Monocytes % (Manual) 4 (0-10) % Metamyelocytes % 3 H (0-0) % Myelocytes % 5 H (0-0) % Nucleated RBC % 1 H (0-0) % Toxic Granulation Present Dohle Bodies Present Platelet Estimate Normal (NORMAL) Anisocytosis (manual) Slight Puncture Site pCO2 (35-45) mm/Hg pO2 (80-100) mm/Hg HCO3 (21-28) mmol/L ABG pH (7.35-7.45) ABG Total CO2 (22-28) mmol/L ABG O2 Saturation (95-98) % ABG Base Excess (-2.0-3.0) mmol/L ABG Hemoglobin (11.7-17.4) g/dL ABG Carboxyhemoglobin (0.5-1.5) % POC ABG HHb (Measured) (0.0-5.0) % ABG Methemoglobin (0.0-3.0) % Nico Test A-a O2 Difference mm/Hg Respiratory Index Hgb O2 Saturation (95.0-98.0) % Mechanical Rate FiO2 % Tidal Volume PEEP Sodium (132-148) mmol/L Potassium (3.6-5.2) mmol/L Chloride (98-107) mmol/L Carbon Dioxide (22-30) mmol/L Anion Gap (10-20) BUN (7-17) mg/dL Creatinine (0.7-1.2) MG/DL Est GFR ( Amer) Est GFR (Non-Af Amer) POC Glucose (mg/dL) 194 H (65-110) mg/dL Random Glucose (65-105) mg/dL Calcium (8.6-10.4) mg/dl Phosphorus (2.5-4.5) mg/dL Magnesium (1.6-2.3) mg/dL Total Bilirubin (0.2-1.3) mg/dL AST (14-36) U/L ALT (9-52) U/L Alkaline Phosphatase (38-126) U/L Total Protein (6.3-8.3) g/dL Albumin (3.5-5.0) g/dL Globulin (2.2-3.9) gm/dL Albumin/Globulin Ratio (1.0-2.1) Vancomycin Trough 28.2 H (5.0-10.0) ug/mL 11/05/16 Range/Units 06:08 WBC (4.8-10.8) K/uL RBC (3.80-5.20) Mil/uL Hgb (11.0-16.0) g/dL Hct (34.0-47.0) % MCV (81.0-99.0) fL MCH (27.0-31.0) pg MCHC (33.0-37.0) g/dL RDW (11.5-14.5) % Plt Count (130-400) K/uL MPV (7.2-11.7) fL Neut % (Auto) (50.0-75.0) % Lymph % (Auto) (20.0-40.0) % [place] % (Auto) (0.0-10.0) % Eos % (Auto) (0.0-4.0) % Baso % (Auto) (0.0-2.0) % Neut # (1.8-7.0) K/uL Lymph # (1.0-4.3) K/uL [place] # (0.0-0.8) K/uL Eos # (0.0-0.7) K/uL Baso # (0.0-0.2) K/uL Neutrophils % (Manual) (50-75) % Band Neutrophils % (0-2) % Lymphocytes % (Manual) (20-40) % Monocytes % (Manual) (0-10) % Metamyelocytes % (0-0) % Myelocytes % (0-0) % Nucleated RBC % (0-0) % Toxic Granulation Dohle Bodies Platelet Estimate (NORMAL) Anisocytosis (manual) Puncture Site pCO2 (35-45) mm/Hg pO2 (80-100) mm/Hg HCO3 (21-28) mmol/L ABG pH (7.35-7.45) ABG Total CO2 (22-28) mmol/L ABG O2 Saturation (95-98) % ABG Base Excess (-2.0-3.0) mmol/L ABG Hemoglobin (11.7-17.4) g/dL ABG Carboxyhemoglobin (0.5-1.5) % POC ABG HHb (Measured) (0.0-5.0) % ABG Methemoglobin (0.0-3.0) % Nico Test A-a O2 Difference mm/Hg Respiratory Index Hgb O2 Saturation (95.0-98.0) % Mechanical Rate FiO2 % Tidal Volume PEEP Sodium 149 H (132-148) mmol/L Potassium 3.5 L (3.6-5.2) mmol/L Chloride 119 H (98-107) mmol/L Carbon Dioxide 19 L (22-30) mmol/L Anion Gap 15 (10-20) BUN 59 H (7-17) mg/dL Creatinine 1.1 (0.7-1.2) MG/DL Est GFR ( Amer) > 60 Est GFR (Non-Af Amer) 50 POC Glucose (mg/dL) (65-110) mg/dL Random Glucose 153 H (65-105) mg/dL Calcium 8.8 (8.6-10.4) mg/dl Phosphorus 4.1 (2.5-4.5) mg/dL Magnesium 1.7 (1.6-2.3) mg/dL Total Bilirubin 0.6 (0.2-1.3) mg/dL AST 51 H (14-36) U/L ALT 33 (9-52) U/L Alkaline Phosphatase 130 H (38-126) U/L Total Protein 5.7 L (6.3-8.3) g/dL Albumin 2.1 L (3.5-5.0) g/dL Globulin 3.6 (2.2-3.9) gm/dL Albumin/Globulin Ratio 0.6 L (1.0-2.1) Vancomycin Trough (5.0-10.0) ug/mL Laboratory Results - last 24 hr 11/05/16 11/05/16 11/05/16 06:08 06:09 09:41 WBC 12.7 H D RBC 2.90 L Hgb 8.3 L Hct 26.2 L MCV 90.3 MCH 28.7 MCHC 31.8 L RDW 15.2 H Plt Count 233 MPV 8.6 Neut % (Auto) 83.2 H Lymph % (Auto) 12.3 L [place] % (Auto) 2.2 Eos % (Auto) 1.8 Baso % (Auto) 0.5 Neut # 10.6 H Lymph # 1.6 [place] # 0.3 Eos # 0.2 Baso # 0.1 Neutrophils % (Manual) 53 Band Neutrophils % 21 H* Lymphocytes % (Manual) 14 L Monocytes % (Manual) 4 Metamyelocytes % 3 H Myelocytes % 5 H Nucleated RBC % 1 H Toxic Granulation Present Dohle Bodies Present Platelet Estimate Normal Anisocytosis (manual) Slight Puncture Site pCO2 pO2 HCO3 ABG pH ABG Total CO2 ABG O2 Saturation ABG Base Excess ABG Hemoglobin ABG Carboxyhemoglobin POC ABG HHb (Measured) ABG Methemoglobin Nico Test A-a O2 Difference Respiratory Index Hgb O2 Saturation Mechanical Rate FiO2 Tidal Volume PEEP Sodium 149 H Potassium 3.5 L Chloride 119 H Carbon Dioxide 19 L Anion Gap 15 BUN 59 H Creatinine 1.1 Est GFR ( Amer) > 60 Est GFR (Non-Af Amer) 50 POC Glucose (mg/dL) Random Glucose 153 H Calcium 8.8 Phosphorus 4.1 Magnesium 1.7 Total Bilirubin 0.6 AST 51 H ALT 33 Alkaline Phosphatase 130 H Total Protein 5.7 L Albumin 2.1 L Globulin 3.6 Albumin/Globulin Ratio 0.6 L Vancomycin Trough 28.2 H 11/05/16 11/05/16 11/05/16 11:23 17:31 23:57 WBC RBC Hgb Hct MCV MCH MCHC RDW Plt Count MPV Neut % (Auto) Lymph % (Auto) [place] % (Auto) Eos % (Auto) Baso % (Auto) Neut # Lymph # [place] # Eos # Baso # Neutrophils % (Manual) Band Neutrophils % Lymphocytes % (Manual) Monocytes % (Manual) Metamyelocytes % Myelocytes % Nucleated RBC % Toxic Granulation Dohle Bodies Platelet Estimate Anisocytosis (manual) Puncture Site pCO2 pO2 HCO3 ABG pH ABG Total CO2 ABG O2 Saturation ABG Base Excess ABG Hemoglobin ABG Carboxyhemoglobin POC ABG HHb (Measured) ABG Methemoglobin Nico Test A-a O2 Difference Respiratory Index Hgb O2 Saturation Mechanical Rate FiO2 Tidal Volume PEEP Sodium Potassium Chloride Carbon Dioxide Anion Gap BUN Creatinine Est GFR ( Amer) Est GFR (Non-Af Amer) POC Glucose (mg/dL) 194 H 200 H 187 H Random Glucose Calcium Phosphorus Magnesium Total Bilirubin AST ALT Alkaline Phosphatase Total Protein Albumin Globulin Albumin/Globulin Ratio Vancomycin Trough 11/06/16 05:08 WBC RBC Hgb Hct MCV MCH MCHC RDW Plt Count MPV Neut % (Auto) Lymph % (Auto) [place] % (Auto) Eos % (Auto) Baso % (Auto) Neut # Lymph # [place] # Eos # Baso # Neutrophils % (Manual) Band Neutrophils % Lymphocytes % (Manual) Monocytes % (Manual) Metamyelocytes % Myelocytes % Nucleated RBC % Toxic Granulation Dohle Bodies Platelet Estimate Anisocytosis (manual) Puncture Site Lr pCO2 30 L pO2 106 H HCO3 19.5 L ABG pH 7.37 ABG Total CO2 18.2 L ABG O2 Saturation 98.8 H ABG Base Excess -6.9 L ABG Hemoglobin 10.9 L ABG Carboxyhemoglobin 1.6 H POC ABG HHb (Measured) 1.2 ABG Methemoglobin 0.8 Nico Test Pos A-a O2 Difference 391.0 Respiratory Index 3.7 Hgb O2 Saturation 96.4 Mechanical Rate 14 FiO2 75.0 Tidal Volume 550 PEEP 8 Sodium Potassium Chloride Carbon Dioxide Anion Gap BUN Creatinine Est GFR ( Amer) Est GFR (Non-Af Amer) POC Glucose (mg/dL) Random Glucose Calcium Phosphorus Magnesium Total Bilirubin AST ALT Alkaline Phosphatase Total Protein Albumin Globulin Albumin/Globulin Ratio Vancomycin Trough Fingerstick Blood Sugar Results: 187 Review of Systems - Review of Systems Systems not reviewed;Unavailable: Intubated Assessment/Plan - Assessment and Plan (Free Text) Assessment: 61yo F PMHx of Asthma, HTN, HLD, DM, with 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 Neuro: AMS No improvement from previous admission, patient still comatose. Head CT 11/01: negative for acute hemorrhage- redemonstrated extensive patchy low attenuation changes within deep and subcortical white matter both cerebral hemispheres. In addition more confluent low attenuation changes within the periventricular white matter. These findings are of uncertain etiology though may represent chronic of sequela of ischemia. The possibility of spuerimposed small hyperacute infarct cannot be excluded based on exam. Consider MRI. Mild moderate generalized volume loss unchanged. Pulm: Chronic respiratory failure PRVC via trach (75, 8, 14, 550) CV: Hypotensive Norepinephrine gtt 1/2 NS @ 150cc/hr Heme: anemia of critical illness Renal: Oliguric acute kidney injury BUN/Cr 55/0.9, Cr improved from 1.1 yesterday 1/2NS @ 150cc/hr Endo: DM2 Accucheck and RISS q6h GI: NPO CT abdomen showed dislodged PEG tube with probable tube feeds spilled into abdomen. Surgery signed off CT abd/pelvis: moderate pneumoperitoneum and mod free fluid in abdomen and pelvis; pneumoperitoneum is more pronounced in upper abdomen anterior to the stomach and the oral contrast spillage is likely related to the stomach. Gastrostomy tubes terminate in the deep subq fat of the L upper quadrant. Mild dilatation and moderate circumferential mural thickening of the prox jejunal loops which may be related to bursitis however nonspecific enteritis cannot be resolved; cirrhosis of liver and mild splenomegaly; cholelithiasis ID: Severe sepsis 11/01 Urine culture + S Aureus 11/01 Blood culture: E Faecalis x 1 and Coag neg staph x 1 Aztreonam 2gm ivpb q8 Vancomycin 1gm ivpb q12 (HELD) DVT ppx: heparin subcutaneous GI ppx: protonix 40mg ivp daily [place] for strict I/O's during acute illness Code status: DNR Case discussed with Dr. Yohan Chávez, PGY-1 <Matteo Almanzar S - Last Filed: 11/06/16 17:24> CCU Subjective - Physician Review Critical Care Time Spent (in minutes): 0 CCU Objective - Vital Signs / Intake & Output Vital Signs (Last 4 hours): Vital Signs Temp Pulse Resp BP Pulse Ox 11/06/16 17:00 98 H 21 100 11/06/16 16:33 100 H 24 153/68 H 100 11/06/16 16:00 98.6 F 104 H 24 100 11/06/16 15:33 101 H 22 151/70 H 100 11/06/16 15:00 102 H 22 100 11/06/16 14:33 100 H 20 146/67 100 11/06/16 14:00 101 H 24 153/74 H 99 11/06/16 13:33 103 H 22 153/74 H 100 Intake and Output (Last 8hrs): Intake & Output 11/06/16 11/06/16 11/06/16 06:59 14:59 22:59 Intake Total 900 800 300 Output Total 500 310 Balance 400 490 300 Weight 262 lb 5.601 oz Intake: Intake, IV Amount 900 800 300 Right PICC 900 800 300 Output: Gastric Amount 100 Left Nares 100 Urine 400 310 Urethral ([place]) 400 310 - Medications Active Medications: Active Medications Generic Name Dose Route Start Last Admin Trade Name Freq PRN Reason Stop Dose Admin Vancomycin HCl 1,000 mg/ 250 mls @ 166.6 mls/hr 11/02/16 10:00 11/05/16 10:08 Sodium Chloride IVPB 166.6 mls/hr Q12H MINI Administration Norepinephrine Bitartrate 8 mg 258 mls @ 7.74 mls/hr 11/01/16 23:33 11/03/16 22:05 / Sodium Chloride IV 0 mcg/min .Q24H PRN 0 mls/hr TITRATE PER MD ORDER Titration Protocol 4 MCG/MIN Aztreonam 2 gm/ Sodium 100 mls @ 200 mls/hr 11/04/16 08:30 11/06/16 16:18 Chloride IVPB Not Given Q8H MINI Sodium Chloride 1,000 mls @ 100 mls/hr 11/05/16 19:00 11/06/16 16:18 Sodium Chloride 0.45% IV Not Given .Q10H MINI Insulin Aspart 0 unit 11/01/16 18:00 11/06/16 12:43 Novolog SC 2 unit Q6H MINI Administration Protocol Pantoprazole Sodium 40 mg 11/02/16 10:00 11/06/16 09:28 Protonix Inj IVP 40 mg DAILY MINI Administration - Patient Studies Lab Studies: Lab Studies 11/06/16 11/06/16 11/06/16 Range/Units 11:40 07:05 07:05 WBC 14.2 H (4.8-10.8) K/uL RBC 3.09 L (3.80-5.20) Mil/uL Hgb 8.7 L (11.0-16.0) g/dL Hct 28.0 L (34.0-47.0) % MCV 90.8 (81.0-99.0) fL MCH 28.3 (27.0-31.0) pg MCHC 31.1 L (33.0-37.0) g/dL RDW 15.5 H (11.5-14.5) % Plt Count 275 (130-400) K/uL MPV 8.4 (7.2-11.7) fL Neut % (Auto) 84.3 H (50.0-75.0) % Lymph % (Auto) 11.0 L (20.0-40.0) % [place] % (Auto) 2.8 (0.0-10.0) % Eos % (Auto) 1.8 (0.0-4.0) % Baso % (Auto) 0.1 (0.0-2.0) % Neut # 12.0 H (1.8-7.0) K/uL Lymph # 1.6 (1.0-4.3) K/uL [place] # 0.4 (0.0-0.8) K/uL Eos # 0.3 (0.0-0.7) K/uL Baso # 0.0 (0.0-0.2) K/uL Puncture Site pCO2 (35-45) mm/Hg pO2 (80-100) mm/Hg HCO3 (21-28) mmol/L ABG pH (7.35-7.45) ABG Total CO2 (22-28) mmol/L ABG O2 Saturation (95-98) % ABG Base Excess (-2.0-3.0) mmol/L ABG Hemoglobin (11.7-17.4) g/dL ABG Carboxyhemoglobin (0.5-1.5) % POC ABG HHb (Measured) (0.0-5.0) % ABG Methemoglobin (0.0-3.0) % Nico Test A-a O2 Difference mm/Hg Respiratory Index Hgb O2 Saturation (95.0-98.0) % Mechanical Rate FiO2 % Tidal Volume PEEP Sodium 153 H (132-148) mmol/L Potassium 3.8 (3.6-5.2) mmol/L Chloride 125 H (98-107) mmol/L Carbon Dioxide 18 L (22-30) mmol/L Anion Gap 14 (10-20) BUN 55 H (7-17) mg/dL Creatinine 0.9 (0.7-1.2) MG/DL Est GFR ( Amer) > 60 Est GFR (Non-Af Amer) > 60 POC Glucose (mg/dL) 193 H (65-110) mg/dL Random Glucose 210 H (65-105) mg/dL Calcium 9.0 (8.6-10.4) mg/dl Phosphorus 3.5 (2.5-4.5) mg/dL Magnesium 1.7 (1.6-2.3) mg/dL Total Bilirubin 0.8 (0.2-1.3) mg/dL AST 34 (14-36) U/L ALT 25 (9-52) U/L Alkaline Phosphatase 145 H (38-126) U/L Total Protein 5.8 L (6.3-8.3) g/dL Albumin 2.3 L (3.5-5.0) g/dL Globulin 3.5 (2.2-3.9) gm/dL Albumin/Globulin Ratio 0.7 L (1.0-2.1) 11/06/16 11/06/16 11/05/16 Range/Units 06:33 05:08 23:57 WBC (4.8-10.8) K/uL RBC (3.80-5.20) Mil/uL Hgb (11.0-16.0) g/dL Hct (34.0-47.0) % MCV (81.0-99.0) fL MCH (27.0-31.0) pg MCHC (33.0-37.0) g/dL RDW (11.5-14.5) % Plt Count (130-400) K/uL MPV (7.2-11.7) fL Neut % (Auto) (50.0-75.0) % Lymph % (Auto) (20.0-40.0) % [place] % (Auto) (0.0-10.0) % Eos % (Auto) (0.0-4.0) % Baso % (Auto) (0.0-2.0) % Neut # (1.8-7.0) K/uL Lymph # (1.0-4.3) K/uL [place] # (0.0-0.8) K/uL Eos # (0.0-0.7) K/uL Baso # (0.0-0.2) K/uL Puncture Site Lr pCO2 30 L (35-45) mm/Hg pO2 106 H (80-100) mm/Hg HCO3 19.5 L (21-28) mmol/L ABG pH 7.37 (7.35-7.45) ABG Total CO2 18.2 L (22-28) mmol/L ABG O2 Saturation 98.8 H (95-98) % ABG Base Excess -6.9 L (-2.0-3.0) mmol/L ABG Hemoglobin 10.9 L (11.7-17.4) g/dL ABG Carboxyhemoglobin 1.6 H (0.5-1.5) % POC ABG HHb (Measured) 1.2 (0.0-5.0) % ABG Methemoglobin 0.8 (0.0-3.0) % Nico Test Pos A-a O2 Difference 391.0 mm/Hg Respiratory Index 3.7 Hgb O2 Saturation 96.4 (95.0-98.0) % Mechanical Rate 14 FiO2 75.0 % Tidal Volume 550 PEEP 8 Sodium (132-148) mmol/L Potassium (3.6-5.2) mmol/L Chloride (98-107) mmol/L Carbon Dioxide (22-30) mmol/L Anion Gap (10-20) BUN (7-17) mg/dL Creatinine (0.7-1.2) MG/DL Est GFR ( Amer) Est GFR (Non-Af Amer) POC Glucose (mg/dL) 237 H 187 H (65-110) mg/dL Random Glucose (65-105) mg/dL Calcium (8.6-10.4) mg/dl Phosphorus (2.5-4.5) mg/dL Magnesium (1.6-2.3) mg/dL Total Bilirubin (0.2-1.3) mg/dL AST (14-36) U/L ALT (9-52) U/L Alkaline Phosphatase (38-126) U/L Total Protein (6.3-8.3) g/dL Albumin (3.5-5.0) g/dL Globulin (2.2-3.9) gm/dL Albumin/Globulin Ratio (1.0-2.1) 11/05/16 Range/Units 17:31 WBC (4.8-10.8) K/uL RBC (3.80-5.20) Mil/uL Hgb (11.0-16.0) g/dL Hct (34.0-47.0) % MCV (81.0-99.0) fL MCH (27.0-31.0) pg MCHC (33.0-37.0) g/dL RDW (11.5-14.5) % Plt Count (130-400) K/uL MPV (7.2-11.7) fL Neut % (Auto) (50.0-75.0) % Lymph % (Auto) (20.0-40.0) % [place] % (Auto) (0.0-10.0) % Eos % (Auto) (0.0-4.0) % Baso % (Auto) (0.0-2.0) % Neut # (1.8-7.0) K/uL Lymph # (1.0-4.3) K/uL [place] # (0.0-0.8) K/uL Eos # (0.0-0.7) K/uL Baso # (0.0-0.2) K/uL Puncture Site pCO2 (35-45) mm/Hg pO2 (80-100) mm/Hg HCO3 (21-28) mmol/L ABG pH (7.35-7.45) ABG Total CO2 (22-28) mmol/L ABG O2 Saturation (95-98) % ABG Base Excess (-2.0-3.0) mmol/L ABG Hemoglobin (11.7-17.4) g/dL ABG Carboxyhemoglobin (0.5-1.5) % POC ABG HHb (Measured) (0.0-5.0) % ABG Methemoglobin (0.0-3.0) % Nico Test A-a O2 Difference mm/Hg Respiratory Index Hgb O2 Saturation (95.0-98.0) % Mechanical Rate FiO2 % Tidal Volume PEEP Sodium (132-148) mmol/L Potassium (3.6-5.2) mmol/L Chloride (98-107) mmol/L Carbon Dioxide (22-30) mmol/L Anion Gap (10-20) BUN (7-17) mg/dL Creatinine (0.7-1.2) MG/DL Est GFR ( Amer) Est GFR (Non-Af Amer) POC Glucose (mg/dL) 200 H (65-110) mg/dL Random Glucose (65-105) mg/dL Calcium (8.6-10.4) mg/dl Phosphorus (2.5-4.5) mg/dL Magnesium (1.6-2.3) mg/dL Total Bilirubin (0.2-1.3) mg/dL AST (14-36) U/L ALT (9-52) U/L Alkaline Phosphatase (38-126) U/L Total Protein (6.3-8.3) g/dL Albumin (3.5-5.0) g/dL Globulin (2.2-3.9) gm/dL Albumin/Globulin Ratio (1.0-2.1) Laboratory Results - last 24 hr 11/05/16 11/05/16 11/06/16 17:31 23:57 05:08 WBC RBC Hgb Hct MCV MCH MCHC RDW Plt Count MPV Neut % (Auto) Lymph % (Auto) [place] % (Auto) Eos % (Auto) Baso % (Auto) Neut # Lymph # [place] # Eos # Baso # Puncture Site Lr pCO2 30 L pO2 106 H HCO3 19.5 L ABG pH 7.37 ABG Total CO2 18.2 L ABG O2 Saturation 98.8 H ABG Base Excess -6.9 L ABG Hemoglobin 10.9 L ABG Carboxyhemoglobin 1.6 H POC ABG HHb (Measured) 1.2 ABG Methemoglobin 0.8 Nico Test Pos A-a O2 Difference 391.0 Respiratory Index 3.7 Hgb O2 Saturation 96.4 Mechanical Rate 14 FiO2 75.0 Tidal Volume 550 PEEP 8 Sodium Potassium Chloride Carbon Dioxide Anion Gap BUN Creatinine Est GFR ( Amer) Est GFR (Non-Af Amer) POC Glucose (mg/dL) 200 H 187 H Random Glucose Calcium Phosphorus Magnesium Total Bilirubin AST ALT Alkaline Phosphatase Total Protein Albumin Globulin Albumin/Globulin Ratio 11/06/16 11/06/16 11/06/16 06:33 07:05 07:05 WBC 14.2 H RBC 3.09 L Hgb 8.7 L Hct 28.0 L MCV 90.8 MCH 28.3 MCHC 31.1 L RDW 15.5 H Plt Count 275 MPV 8.4 Neut % (Auto) 84.3 H Lymph % (Auto) 11.0 L [place] % (Auto) 2.8 Eos % (Auto) 1.8 Baso % (Auto) 0.1 Neut # 12.0 H Lymph # 1.6 [place] # 0.4 Eos # 0.3 Baso # 0.0 Puncture Site pCO2 pO2 HCO3 ABG pH ABG Total CO2 ABG O2 Saturation ABG Base Excess ABG Hemoglobin ABG Carboxyhemoglobin POC ABG HHb (Measured) ABG Methemoglobin Nico Test A-a O2 Difference Respiratory Index Hgb O2 Saturation Mechanical Rate FiO2 Tidal Volume PEEP Sodium 153 H Potassium 3.8 Chloride 125 H Carbon Dioxide 18 L Anion Gap 14 BUN 55 H Creatinine 0.9 Est GFR ( Amer) > 60 Est GFR (Non-Af Amer) > 60 POC Glucose (mg/dL) 237 H Random Glucose 210 H Calcium 9.0 Phosphorus 3.5 Magnesium 1.7 Total Bilirubin 0.8 AST 34 ALT 25 Alkaline Phosphatase 145 H Total Protein 5.8 L Albumin 2.3 L Globulin 3.5 Albumin/Globulin Ratio 0.7 L 11/06/16 11:40 WBC RBC Hgb Hct MCV MCH MCHC RDW Plt Count MPV Neut % (Auto) Lymph % (Auto) [place] % (Auto) Eos % (Auto) Baso % (Auto) Neut # Lymph # [place] # Eos # Baso # Puncture Site pCO2 pO2 HCO3 ABG pH ABG Total CO2 ABG O2 Saturation ABG Base Excess ABG Hemoglobin ABG Carboxyhemoglobin POC ABG HHb (Measured) ABG Methemoglobin Nico Test A-a O2 Difference Respiratory Index Hgb O2 Saturation Mechanical Rate FiO2 Tidal Volume PEEP Sodium Potassium Chloride Carbon Dioxide Anion Gap BUN Creatinine Est GFR ( Amer) Est GFR (Non-Af Amer) POC Glucose (mg/dL) 193 H Random Glucose Calcium Phosphorus Magnesium Total Bilirubin AST ALT Alkaline Phosphatase Total Protein Albumin Globulin Albumin/Globulin Ratio Attending/Attestation - Attestation I have personally seen and examined this patient.: Yes I have fully participated in the care of the patient.: Yes I have reviewed all pertinent clinical information: Yes Notes (Text): 11/06/16 17:23 Patient seen and examined in the intensive care unit. Case discussed with house staff in the morning rounds. Possible terminal extubation today Prognosis poor
[2016-11-06 07:09] LABS: BASO % 0.1 % (0.0-2.0); EOS # 0.3 K/uL (0.0-0.7); EOS % 1.8 % (0.0-4.0); LYMPH # 1.6 K/uL (1.0-4.3); MEAN CELL VOLUME 90.8 fL (81.0-99.0); MEAN CORPUSCULAR HEMOGLOBIN 28.3 pg (27.0-31.0); MEAN CORPUSCULAR HGB CONC 31.1 g/dL (33.0-37.0); MEAN PLATELET VOLUME 8.4 fL (7.2-11.7); MONO # 0.4 K/uL (0.0-0.8); MONO % 2.8 % (0.0-10.0); RED CELL DISTRIBUTION WIDTH 15.5 % (11.5-14.5); WHITE BLOOD COUNT 14.2 K/uL (4.8-10.8)
[2016-11-06 07:36] LABS: CHLORIDE 125 mmol/L (98-107); POTASSIUM 3.8 mmol/L (3.6-5.2); SODIUM 153 mmol/L (132-148)
[2016-11-06 07:38] LABS: GFR AFRICAN-AMERICAN > 60
[2016-11-06 07:39] LABS: ALKALINE PHOSPHATASE 145 U/L (38-126); ALT/SGPT 25 U/L (9-52); AST/SGOT 34 U/L (14-36); BILIRUBIN,TOTAL 0.8 mg/dL (0.2-1.3); BLOOD UREA NITROGEN 55 mg/dL (7-17); CARBON DIOXIDE 18 mmol/L (22-30); GLUCOSE,RANDOM 210 mg/dL (65-105); MAGNESIUM 1.7 mg/dL (1.6-2.3); PHOSPHOROUS 3.5 mg/dL (2.5-4.5); TOTAL PROTEIN 5.8 g/dL (6.3-8.3)
[2016-11-06 08:10] LABS: ALB/GLOB RATIO 0.7 (1.0-2.1)
--- NOTE | 2016-11-06 08:30 | PN ---
DATE: 11/05/2016 The patient seen and examined on the bedside. No change in the status. The patient is not able to give review of systems, clinically no change. The patient has trach in place on vent. Overnight, no change happened. No fever, no chills. PHYSICAL EXAMINATION: VITAL SIGNS: Temperature, patient is afebrile, pulse 92, respiratory rate 17, blood pressure 144/77, pulse oximetry 100%. HEENT: Normocephalic. Eyes closed. Nose patent. Mucous membranes moist. NECK: Trach in place. Supple. RESPIRATORY: Clear to auscultation with decreased breath sounds. CARDIOVASCULAR: Heart S1, S2 positive, tachycardia. Negative for murmur. ABDOMEN: Distended. PEG tube place , has dressing. EXTREMITIES: Positive edema: NEUROLOGIC: The patient is comatose, negative for complete neurological examination. MEDICATIONS: Vancomycin, norepinephrine, NS, aztreonam, insulin, Protonix. LABORATORY DATA: White blood cells 12.7, hemoglobin 8.3, hematocrit 26.2, platelets 233. ASSESSMENT AND PLAN: The patient is a 61-year-old lady with history of meningitis, respiratory failure, intubated. 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 The patient is do not resuscitate. Waiting for family's decision to extubate the patient. Grave prognosis. The patient is not improving. We will follow up according to family decision. Carmen Maguire MD cc: [id number] TT: 11/06/2016 08:28:46 Confirmation # [id number] Dictation # [id number] mimi URBINA
--- NOTE | 2016-11-06 08:37 | RAD ---
HISTORY: intubated COMPARISON: No prior. FINDINGS: LUNGS: Minimal linear atelectasis at left lung base. No infiltrate. PLEURA: No significant pleural effusion identified, no pneumothorax apparent. CARDIOVASCULAR: Tracheostomy tube. Nasogastric tube. Unchanged. OSSEOUS STRUCTURES: No significant abnormalities. VISUALIZED UPPER ABDOMEN: Normal. OTHER FINDINGS: None. IMPRESSION: No active disease.
--- NOTE | 2016-11-06 11:22 | CP.PCM.CON ---
History of Present Illness - History of Present Illness History of Present Illness: Palliative consult Requested by Doctor Almanzar Reason: Goals of care discussion Patient is a 61 yo lady admitted from LTAC with complaints of distended abdomen , vomiting and suspicion for SBO. Patient was admitted to [facility] about 3 weeks ago with respiratory distress, was given trach for respiratory support and transferred to LTAC. Ever since patient was obtund and nonverbal. Upon admission CT abd/pelvis, was significant for findings suggesting liver cirrhosis. The CT head was negative bleeding and suggested extensive patchy changes in white matter in both hemispheres. patient has had elevated temp since admission on the most days, higher 102.2. The urine and blood cultures came back positive and patient was started on Azactam and Vanco IV. BP supported by Levophed. Latest BP 127/67, HR 98. WBC 14.2, Hb 8.7, Na 153, BUN 55. IVF of 1/2 NS at 100 cc on board. PMH: bacterial meningitis, septic emboli, HTN, DM, COPD, elevated cholesterol, multiple ischemic CVAs, vent dependent with trach Soc. Hx: , lived at home, has three children, never smoked Fam> Hx: mother from CVA as DM complication, father as a victim of homicide, ex lives in [place] Review of Systems - Review of Systems Systems not reviewed;Unavailable: Intubated Review of Systems: Except as marked, all systems reviewed and are negative. - Constitutional Constitutional: Weakness - Cardiovascular Cardiovascular: Pedal Edema, Rapid Heart Rate - Respiratory Additional comments: On MV - Gastrointestinal Gastrointestinal: Bloating, Vomiting Additional comments: PEG - Genitourinary Additional comments: Santiago - Reproductive: Female Reproductive:Female: Post Menopausal - Menstruation Menstruation: Post Menopausal - Neurological Neurological: Focal Weakness Past Patient History - Infectious Disease Hx of Infectious Diseases: None - Tetanus Immunizations Tetanus Immunization: Unknown - Past Medical History & Family History Past Medical History?: Yes - Past Social History Smoking Status: Unknown If Ever Smoked - CARDIAC Hx Congestive Heart Failure: Yes Hx Hypercholesterolemia: Yes Hx Hypertension: Yes - PULMONARY Hx Asthma: Yes Hx Chronic Obstructive Pulmonary Disease (COPD): Yes - NEUROLOGICAL Hx Migraine: Yes - HEENT Hx HEENT Problems: Yes (Allergic Rhinitis) - RENAL Hx Chronic Kidney Disease: No - ENDOCRINE/METABOLIC Hx Endocrine Disorders: Yes Hx Diabetes Mellitus Type 2: Yes (FROM EMS) - HEMATOLOGICAL/ONCOLOGICAL Hx Anemia: Yes - INTEGUMENTARY Hx Dermatological Problems: No - MUSCULOSKELETAL/RHEUMATOLOGICAL Hx Arthritis: Yes Hx Falls: No - GASTROINTESTINAL Hx Gastrointestinal Disorders: No - GENITOURINARY/GYNECOLOGICAL Hx Genitourinary Disorders: No - PSYCHIATRIC Hx Anxiety: Yes Hx Depression: Yes Hx Substance Use: No - SURGICAL HISTORY Hx Surgeries: Yes Hx Section: Yes (FROM PRIOVIOUS CHART) Hx Dilation and Curettage: Yes (2013) Other/Comment: D&C (2013) - ANESTHESIA Hx Anesthesia: Yes Hx Anesthesia Reactions: No Hx Malignant Hyperthermia: No Meds Allergies/Adverse Reactions: Allergies Allergy/AdvReac Type Severity Reaction Status Date / Time moxifloxacin HCl Allergy Mild RASH Verified 11/01/16 13:09 [From Avelox] codeine Allergy RASH Verified 11/01/16 13:09 morphine AdvReac RASH Verified 11/01/16 13:09 niacin AdvReac ITCHING Verified 11/01/16 13:09 [From Niaspan Extended-Release] Penicillins AdvReac RASH Verified 11/01/16 13:09 tramadol AdvReac RASH Verified 11/01/16 13:09 - Medications Medications: Current Medications Vancomycin HCl 1,000 mg/ (Sodium Chloride) 250 mls @ 166.6 mls/hr IVPB Q12H [facility] Last Admin: 11/05/16 10:08 Dose: 166.6 mls/hr Norepinephrine Bitartrate 8 mg (/ Sodium Chloride) 258 mls @ 7.74 mls/hr IV .Q24H PRN; Protocol; 4 MCG/MIN PRN Reason: TITRATE PER MD ORDER Last Titration: 11/03/16 22:05 Dose: 0 mcg/min, 0 mls/hr Aztreonam 2 gm/ Sodium (Chloride) 100 mls @ 200 mls/hr IVPB Q8H [facility] Last Admin: 11/06/16 09:26 Dose: 200 mls/hr Sodium Chloride (Sodium Chloride 0.45%) 1,000 mls @ 100 mls/hr IV .Q10H [facility] Last Admin: 11/06/16 05:34 Dose: 100 mls/hr Insulin Aspart (Novolog) 0 unit SC Q6H [facility] PRN Reason: Protocol Last Admin: 11/06/16 06:49 Dose: 3 unit Pantoprazole Sodium (Protonix Inj) 40 mg IVP DAILY [facility] Last Admin: 11/06/16 09:28 Dose: 40 mg Physical Exam - Constitutional Appears: In Acute Distress - Head Exam Head Exam: ATRAUMATIC, NORMAL INSPECTION, NORMOCEPHALIC - Eye Exam Eye Exam: Normal appearance - ENT Exam ENT Exam: Mucous Membranes Dry Additional comments: Trach - Neck Exam Additional comments: Trach - Respiratory Exam Respiratory Exam: Decreased Breath Sounds Additional comments: On MV support - Cardiovascular Exam Cardiovascular Exam: Tachycardia, REGULAR RHYTHM Additional comments: On Levophed IV - GI/Abdominal Exam GI & Abdominal Exam: Distended, Hypoactive Bowel Sounds - Rectal Exam Rectal Exam: Deferred - Exam Additional comments: Santiago cath - Extremities Exam Extremities exam: Positive for: pedal edema - Back Exam Back exam: NORMAL INSPECTION - Neurological Exam Neurological exam: Motor Sensory Deficit - Psychiatric Exam Psychiatric exam: Flat Affect - Skin Skin Exam: Pallor Results - Vital Signs Recent Vital Signs: Last Vital Signs Temp 100.9 F H 11/06/16 08:00 Pulse 98 H 11/06/16 10:00 Resp 19 11/06/16 10:00 BP 127/67 11/06/16 09:33 Pulse Ox 99 11/06/16 10:00 - Labs Result Diagrams: 11/06/16 07:05 11/06/16 07:05 Labs: Laboratory Results - last 24 hr 11/05/16 11/05/16 11/05/16 11:23 17:31 23:57 WBC RBC Hgb Hct MCV MCH MCHC RDW Plt Count MPV Neut % (Auto) Lymph % (Auto) Coal % (Auto) Eos % (Auto) Baso % (Auto) Neut # Lymph # Coal # Eos # Baso # Puncture Site pCO2 pO2 HCO3 ABG pH ABG Total CO2 ABG O2 Saturation ABG Base Excess ABG Hemoglobin ABG Carboxyhemoglobin POC ABG HHb (Measured) ABG Methemoglobin Nico Test A-a O2 Difference Respiratory Index Hgb O2 Saturation Mechanical Rate FiO2 Tidal Volume PEEP Sodium Potassium Chloride Carbon Dioxide Anion Gap BUN Creatinine Est GFR ( Amer) Est GFR (Non-Af Amer) POC Glucose (mg/dL) 194 H 200 H 187 H Random Glucose Calcium Phosphorus Magnesium Total Bilirubin AST ALT Alkaline Phosphatase Total Protein Albumin Globulin Albumin/Globulin Ratio 11/06/16 11/06/16 11/06/16 05:08 06:33 07:05 WBC 14.2 H RBC 3.09 L Hgb 8.7 L Hct 28.0 L MCV 90.8 MCH 28.3 MCHC 31.1 L RDW 15.5 H Plt Count 275 MPV 8.4 Neut % (Auto) 84.3 H Lymph % (Auto) 11.0 L Coal % (Auto) 2.8 Eos % (Auto) 1.8 Baso % (Auto) 0.1 Neut # 12.0 H Lymph # 1.6 Coal # 0.4 Eos # 0.3 Baso # 0.0 Puncture Site Lr pCO2 30 L pO2 106 H HCO3 19.5 L ABG pH 7.37 ABG Total CO2 18.2 L ABG O2 Saturation 98.8 H ABG Base Excess -6.9 L ABG Hemoglobin 10.9 L ABG Carboxyhemoglobin 1.6 H POC ABG HHb (Measured) 1.2 ABG Methemoglobin 0.8 Nico Test Pos A-a O2 Difference 391.0 Respiratory Index 3.7 Hgb O2 Saturation 96.4 Mechanical Rate 14 FiO2 75.0 Tidal Volume 550 PEEP 8 Sodium Potassium Chloride Carbon Dioxide Anion Gap BUN Creatinine Est GFR ( Amer) Est GFR (Non-Af Amer) POC Glucose (mg/dL) 237 H Random Glucose Calcium Phosphorus Magnesium Total Bilirubin AST ALT Alkaline Phosphatase Total Protein Albumin Globulin Albumin/Globulin Ratio 11/06/16 07:05 WBC RBC Hgb Hct MCV MCH MCHC RDW Plt Count MPV Neut % (Auto) Lymph % (Auto) Coal % (Auto) Eos % (Auto) Baso % (Auto) Neut # Lymph # Coal # Eos # Baso # Puncture Site pCO2 pO2 HCO3 ABG pH ABG Total CO2 ABG O2 Saturation ABG Base Excess ABG Hemoglobin ABG Carboxyhemoglobin POC ABG HHb (Measured) ABG Methemoglobin Nico Test A-a O2 Difference Respiratory Index Hgb O2 Saturation Mechanical Rate FiO2 Tidal Volume PEEP Sodium 153 H Potassium 3.8 Chloride 125 H Carbon Dioxide 18 L Anion Gap 14 BUN 55 H Creatinine 0.9 Est GFR ( Amer) > 60 Est GFR (Non-Af Amer) > 60 POC Glucose (mg/dL) Random Glucose 210 H Calcium 9.0 Phosphorus 3.5 Magnesium 1.7 Total Bilirubin 0.8 AST 34 ALT 25 Alkaline Phosphatase 145 H Total Protein 5.8 L Albumin 2.3 L Globulin 3.5 Albumin/Globulin Ratio 0.7 L Assessment & Plan - Assessment and Plan (Free Text) Assessment: Palliative consult Code status DNR, PPS 0%, ROS obtained from nursing, family and chart I reviewed all medical records, diagnostic studies and examined patient in the bed. Goals of care discussed over the phone with patient's daughter Myra. Patient is unresponsive to stimuli, in bed with eyes closed. GCS of 3. patient looks ill. Respirations supported by the MV. Patient unable to provide ROS due to condition. Abdomen remains largely distended. Patient afebrile at present. Skin intact, pedal edema present.Nursing reports no events over night. In 35 min long phone conversation with patient's daughter Myra, we discussed goals of care for this very unfortunate patient. The daughter stated being informed about her mother's condition as she had spoken to the Doctors. She understand her mother's condition is very complex and meaningful recovery to previous level of life was not expected. It is especially difficult for the daughter to accept her mother's condition since just a few weeks ago, patient was at home acting appropriately and having normal life. We discussed quality of life issues. It was the most concerning for the daughter. She would not want to see her mother in this way. The daughter also stated, that the patient had responded to her and her siblings when they visit, by the increased work of breathing and increased restlesness. I reasusred daughter that it may be so, but it still was not enough for one to have improved quality of life. She agreed.The daughter reports that family is very christianity and believes in miracles, that's why their hope for patient's recovery was that high. I reviewed latest diagnostic and blood study results with the daughter. I corrected her knowledge regarding the liver cirrhosis and CVA signs and symptoms and their influence on quality of life. Further, daughter admitted feeling exhausted being at the hospital every day after work . She states being emotionally drained by her mother's condition. her and her siblings are trying to make the best possible decision regarding their mother's nico.They are beginning to realize that allowing patient to naturally may be thr best decision, what will cease patient's suffering. The daughter had many question regarding the process of terminal extubation, what I answered to the satisfaction. We agreed that Jasmine talks to her siblings, and come over later this afternoon for the final decision on terminal extubation. Impression * This is a very sick and unfortunate young woman with very poor prognosis * Based on assessment from deferent disciplines the prognosis is seen terminal * Family is beginning to realize the terminal nature of patient's condition and is leaning toward measures to allow natural * Family will come late this evening for the final decision on removing from life support Suggestion * Symptoms management * Support for family * Chaplan visit for spiritual support * I believe that allowing natural for this patient would stop further suffering for the patient and the family Thank you for consulting palliative care
[2016-11-07] MEDS: (Novolog) Insulin Aspart, Recombinant 100 u/ml 10 ml vial SC SCH ×4 (00:08→18:11)
[2016-11-07] MEDS: Aztreonam 2 GM in Sodium Chloride 0.9% 100 ML IVPB SCH ×3 (00:53→15:22)
[2016-11-07] MEDS: Sodium Chloride 0.45% 1,000 ML IV SCH ×4 (00:57→22:00)
--- NOTE | 2016-11-07 06:28 | CP.CCUPN ---
<Landy Monsalve - Last Filed: 11/07/16 16:41> CCU Subjective - Physician Review Subjective (Free Text): 11/07/16 13:58 Patient seen and examined at bedside No acute events and patient was afebrile overnight as per nursing Patient has trach in place on vent (75, 8, 14, 550) Patient has some nonspecific mild improvements clinically ROS unobtainable CCU Objective - Vital Signs / Intake & Output Vital Signs (Last 4 hours): Vital Signs Temp Pulse Resp BP Pulse Ox 11/07/16 05:33 102 H 20 124/67 98 11/07/16 04:33 102 H 21 121/70 99 11/07/16 04:00 99.4 F 11/07/16 03:33 102 H 21 132/70 99 11/07/16 02:33 103 H 21 123/65 99 Intake and Output (Last 8hrs): Intake & Output 11/06/16 11/06/16 11/07/16 14:59 22:59 06:59 Intake Total 800 800 900 Output Total 310 450 400 Balance 490 350 500 Intake: Intake, IV Amount 800 800 900 Right PICC 800 800 900 Output: Urine 310 450 400 Urethral (Santiago) 310 450 400 - Physical Exam Head: Positive for: Atraumatic, Normocephalic Pupils: Positive for: Sluggish Mouth: Positive for: Moist Mucous Membranes Neck: Positive for: Other (trach in place) Respiratory/Chest: Positive for: Clear to Auscultation, Decreased Breath Sounds Cardiovascular: Positive for: Normal S1, S2, Tachycardic. Negative for: Murmurs Abdomen: Positive for: Distention, Other (PEG tube in place) Lower Extremity: Positive for: Edema Neurological: Positive for: Other (comatosse). Negative for: CN II-XII Intact, Motor Func Grossly Intact Skin: Positive for: Dry Psychiatric: Negative for: Alert, Oriented x 3 - Medications Active Medications: Active Medications Generic Name Dose Route Start Last Admin Trade Name Freq PRN Reason Stop Dose Admin Vancomycin HCl 1,000 mg/ 250 mls @ 166.6 mls/hr 11/02/16 10:00 11/05/16 10:08 Sodium Chloride IVPB 166.6 mls/hr Q12H MINI Administration Norepinephrine Bitartrate 8 mg 258 mls @ 7.74 mls/hr 11/01/16 23:33 11/03/16 22:05 / Sodium Chloride IV 0 mcg/min .Q24H PRN 0 mls/hr TITRATE PER MD ORDER Titration Protocol 4 MCG/MIN Aztreonam 2 gm/ Sodium 100 mls @ 200 mls/hr 11/04/16 08:30 11/07/16 00:53 Chloride IVPB 200 mls/hr Q8H MINI Administration Sodium Chloride 1,000 mls @ 100 mls/hr 11/05/16 19:00 11/07/16 00:57 Sodium Chloride 0.45% IV 100 mls/hr .Q10H MINI Administration Insulin Aspart 0 unit 11/01/16 18:00 11/07/16 05:48 Novolog SC 4 unit Q6H MINI Administration Protocol Pantoprazole Sodium 40 mg 11/02/16 10:00 11/06/16 09:28 Protonix Inj IVP 40 mg DAILY MINI Administration - Patient Studies Lab Studies: Lab Studies 11/07/16 11/07/16 11/06/16 Range/Units 05:41 01:00 18:19 WBC (4.8-10.8) K/uL RBC (3.80-5.20) Mil/uL Hgb (11.0-16.0) g/dL Hct (34.0-47.0) % MCV (81.0-99.0) fL MCH (27.0-31.0) pg MCHC (33.0-37.0) g/dL RDW (11.5-14.5) % Plt Count (130-400) K/uL MPV (7.2-11.7) fL Neut % (Auto) (50.0-75.0) % Lymph % (Auto) (20.0-40.0) % [place] % (Auto) (0.0-10.0) % Eos % (Auto) (0.0-4.0) % Baso % (Auto) (0.0-2.0) % Neut # (1.8-7.0) K/uL Lymph # (1.0-4.3) K/uL [place] # (0.0-0.8) K/uL Eos # (0.0-0.7) K/uL Baso # (0.0-0.2) K/uL Sodium (132-148) mmol/L Potassium (3.6-5.2) mmol/L Chloride (98-107) mmol/L Carbon Dioxide (22-30) mmol/L Anion Gap (10-20) BUN (7-17) mg/dL Creatinine (0.7-1.2) MG/DL Est GFR ( Amer) Est GFR (Non-Af Amer) POC Glucose (mg/dL) 251 H 251 H 229 H (65-110) mg/dL Random Glucose (65-105) mg/dL Calcium (8.6-10.4) mg/dl Phosphorus (2.5-4.5) mg/dL Magnesium (1.6-2.3) mg/dL Total Bilirubin (0.2-1.3) mg/dL AST (14-36) U/L ALT (9-52) U/L Alkaline Phosphatase (38-126) U/L Total Protein (6.3-8.3) g/dL Albumin (3.5-5.0) g/dL Globulin (2.2-3.9) gm/dL Albumin/Globulin Ratio (1.0-2.1) 11/06/16 11/06/16 11/06/16 Range/Units 11:40 07:05 07:05 WBC 14.2 H (4.8-10.8) K/uL RBC 3.09 L (3.80-5.20) Mil/uL Hgb 8.7 L (11.0-16.0) g/dL Hct 28.0 L (34.0-47.0) % MCV 90.8 (81.0-99.0) fL MCH 28.3 (27.0-31.0) pg MCHC 31.1 L (33.0-37.0) g/dL RDW 15.5 H (11.5-14.5) % Plt Count 275 (130-400) K/uL MPV 8.4 (7.2-11.7) fL Neut % (Auto) 84.3 H (50.0-75.0) % Lymph % (Auto) 11.0 L (20.0-40.0) % [place] % (Auto) 2.8 (0.0-10.0) % Eos % (Auto) 1.8 (0.0-4.0) % Baso % (Auto) 0.1 (0.0-2.0) % Neut # 12.0 H (1.8-7.0) K/uL Lymph # 1.6 (1.0-4.3) K/uL [place] # 0.4 (0.0-0.8) K/uL Eos # 0.3 (0.0-0.7) K/uL Baso # 0.0 (0.0-0.2) K/uL Sodium 153 H (132-148) mmol/L Potassium 3.8 (3.6-5.2) mmol/L Chloride 125 H (98-107) mmol/L Carbon Dioxide 18 L (22-30) mmol/L Anion Gap 14 (10-20) BUN 55 H (7-17) mg/dL Creatinine 0.9 (0.7-1.2) MG/DL Est GFR ( Amer) > 60 Est GFR (Non-Af Amer) > 60 POC Glucose (mg/dL) 193 H (65-110) mg/dL Random Glucose 210 H (65-105) mg/dL Calcium 9.0 (8.6-10.4) mg/dl Phosphorus 3.5 (2.5-4.5) mg/dL Magnesium 1.7 (1.6-2.3) mg/dL Total Bilirubin 0.8 (0.2-1.3) mg/dL AST 34 (14-36) U/L ALT 25 (9-52) U/L Alkaline Phosphatase 145 H (38-126) U/L Total Protein 5.8 L (6.3-8.3) g/dL Albumin 2.3 L (3.5-5.0) g/dL Globulin 3.5 (2.2-3.9) gm/dL Albumin/Globulin Ratio 0.7 L (1.0-2.1) 11/06/16 Range/Units 06:33 WBC (4.8-10.8) K/uL RBC (3.80-5.20) Mil/uL Hgb (11.0-16.0) g/dL Hct (34.0-47.0) % MCV (81.0-99.0) fL MCH (27.0-31.0) pg MCHC (33.0-37.0) g/dL RDW (11.5-14.5) % Plt Count (130-400) K/uL MPV (7.2-11.7) fL Neut % (Auto) (50.0-75.0) % Lymph % (Auto) (20.0-40.0) % [place] % (Auto) (0.0-10.0) % Eos % (Auto) (0.0-4.0) % Baso % (Auto) (0.0-2.0) % Neut # (1.8-7.0) K/uL Lymph # (1.0-4.3) K/uL [place] # (0.0-0.8) K/uL Eos # (0.0-0.7) K/uL Baso # (0.0-0.2) K/uL Sodium (132-148) mmol/L Potassium (3.6-5.2) mmol/L Chloride (98-107) mmol/L Carbon Dioxide (22-30) mmol/L Anion Gap (10-20) BUN (7-17) mg/dL Creatinine (0.7-1.2) MG/DL Est GFR ( Amer) Est GFR (Non-Af Amer) POC Glucose (mg/dL) 237 H (65-110) mg/dL Random Glucose (65-105) mg/dL Calcium (8.6-10.4) mg/dl Phosphorus (2.5-4.5) mg/dL Magnesium (1.6-2.3) mg/dL Total Bilirubin (0.2-1.3) mg/dL AST (14-36) U/L ALT (9-52) U/L Alkaline Phosphatase (38-126) U/L Total Protein (6.3-8.3) g/dL Albumin (3.5-5.0) g/dL Globulin (2.2-3.9) gm/dL Albumin/Globulin Ratio (1.0-2.1) Laboratory Results - last 24 hr 11/06/16 11/06/16 11/06/16 06:33 07:05 07:05 WBC 14.2 H RBC 3.09 L Hgb 8.7 L Hct 28.0 L MCV 90.8 MCH 28.3 MCHC 31.1 L RDW 15.5 H Plt Count 275 MPV 8.4 Neut % (Auto) 84.3 H Lymph % (Auto) 11.0 L [place] % (Auto) 2.8 Eos % (Auto) 1.8 Baso % (Auto) 0.1 Neut # 12.0 H Lymph # 1.6 [place] # 0.4 Eos # 0.3 Baso # 0.0 Sodium 153 H Potassium 3.8 Chloride 125 H Carbon Dioxide 18 L Anion Gap 14 BUN 55 H Creatinine 0.9 Est GFR ( Amer) > 60 Est GFR (Non-Af Amer) > 60 POC Glucose (mg/dL) 237 H Random Glucose 210 H Calcium 9.0 Phosphorus 3.5 Magnesium 1.7 Total Bilirubin 0.8 AST 34 ALT 25 Alkaline Phosphatase 145 H Total Protein 5.8 L Albumin 2.3 L Globulin 3.5 Albumin/Globulin Ratio 0.7 L 11/06/16 11/06/16 11/07/16 11:40 18:19 01:00 WBC RBC Hgb Hct MCV MCH MCHC RDW Plt Count MPV Neut % (Auto) Lymph % (Auto) [place] % (Auto) Eos % (Auto) Baso % (Auto) Neut # Lymph # [place] # Eos # Baso # Sodium Potassium Chloride Carbon Dioxide Anion Gap BUN Creatinine Est GFR ( Amer) Est GFR (Non-Af Amer) POC Glucose (mg/dL) 193 H 229 H 251 H Random Glucose Calcium Phosphorus Magnesium Total Bilirubin AST ALT Alkaline Phosphatase Total Protein Albumin Globulin Albumin/Globulin Ratio 11/07/16 05:41 WBC RBC Hgb Hct MCV MCH MCHC RDW Plt Count MPV Neut % (Auto) Lymph % (Auto) [place] % (Auto) Eos % (Auto) Baso % (Auto) Neut # Lymph # [place] # Eos # Baso # Sodium Potassium Chloride Carbon Dioxide Anion Gap BUN Creatinine Est GFR ( Amer) Est GFR (Non-Af Amer) POC Glucose (mg/dL) 251 H Random Glucose Calcium Phosphorus Magnesium Total Bilirubin AST ALT Alkaline Phosphatase Total Protein Albumin Globulin Albumin/Globulin Ratio Fingerstick Blood Sugar Results: 251 Review of Systems - Review of Systems Systems not reviewed;Unavailable: Intubated Assessment/Plan - Assessment and Plan (Free Text) Assessment: 61yo F PMHx of Asthma, HTN, HLD, DM, with 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 Neuro: -Head CT 11/01: negative for acute hemorrhage- redemonstrated extensive patchy low attenuation changes within deep and subcortical white matter both cerebral hemispheres. In addition more confluent low attenuation changes within the periventricular white matter. These findings are of uncertain etiology though may represent chronic of sequela of ischemia. The possibility of spuerimposed small hyperacute infarct cannot be excluded based on exam. Consider MRI. Mild moderate generalized volume loss unchanged. -minimal Pulm: -Chronic respiratory failure -PRVC via trach (75, 8, 14, 550) CV: -Norepinephrine gtt -1/2 NS @ 100cc/hr Heme: -anemia of critical illness Renal: -Oliguric acute kidney injury -1/2NS @ 100cc/hr Endo: -DM2 -Accucheck and RISS q6h GI: -NPO -CT abdomen showed dislodged PEG tube with probable tube feeds spilled into abdomen. -CT abd/pelvis: moderate pneumoperitoneum and mod free fluid in abdomen and pelvis; pneumoperitoneum is more pronounced in upper abdomen anterior to the stomach and the oral contrast spillage is likely related to the stomach. Gastrostomy tubes terminate in the deep subq fat of the L upper quadrant. Mild dilatation and moderate circumferential mural thickening of the prox jejunal loops which may be related to bursitis however nonspecific enteritis cannot be resolved; cirrhosis of liver and mild splenomegaly; cholelithiasis -Surgery consult for J tube - Dr Rodriguez ID: -Severe sepsis -11/01 Urine culture + S Aureus -11/01 Blood culture: E Faecalis x 1 and Coag neg staph x 1 -Aztreonam 2gm ivpb q8 -Vancomycin 1gm ivpb q12 (HELD) DVT ppx: SCDs; Lovenox 40mg sc daily GI ppx: protonix 40mg ivp daily Santiago for strict I/O's during acute illness Code status: DNR Case discussed with Dr. Janina Monsalve PGY1 <Jack Roa - Last Filed: 11/07/16 17:28> CCU Objective - Vital Signs / Intake & Output Intake and Output (Last 8hrs): Intake & Output 11/07/16 11/07/16 11/07/16 06:59 14:59 22:59 Intake Total 900 700 Output Total 500 200 Balance 400 500 Weight 265 lb Intake: Intake, IV Amount 900 700 R PICC 100 Right PICC 900 600 Output: Gastric Amount 100 Left Nares 100 Urine 400 200 Urethral (Santiago) 400 200 - Medications Active Medications: Active Medications Generic Name Dose Route Start Last Admin Trade Name Freq PRN Reason Stop Dose Admin Enoxaparin Sodium 40 mg 11/08/16 10:00 Lovenox SC DAILY MINI Vancomycin HCl 1,000 mg/ 250 mls @ 166.6 mls/hr 11/02/16 10:00 11/05/16 10:08 Sodium Chloride IVPB 166.6 mls/hr Q12H MINI Administration Norepinephrine Bitartrate 8 mg 258 mls @ 7.74 mls/hr 11/01/16 23:33 11/03/16 22:05 / Sodium Chloride IV 0 mcg/min .Q24H PRN 0 mls/hr TITRATE PER MD ORDER Titration Protocol 4 MCG/MIN Aztreonam 2 gm/ Sodium 100 mls @ 200 mls/hr 11/04/16 08:30 11/07/16 15:22 Chloride IVPB 200 mls/hr Q8H MINI Administration Sodium Chloride 1,000 mls @ 100 mls/hr 11/05/16 19:00 11/07/16 15:50 Sodium Chloride 0.45% IV 100 mls/hr .Q10H MINI Administration Insulin Aspart 0 unit 11/01/16 18:00 11/07/16 12:20 Novolog SC 4 unit Q6H MINI Administration Protocol Pantoprazole Sodium 40 mg 11/08/16 10:00 Protonix Inj IVP DAILY MINI - Patient Studies Lab Studies: Lab Studies 11/07/16 11/07/16 11/07/16 Range/Units 11:38 05:41 01:00 POC Glucose (mg/dL) 278 H 251 H 251 H (65-110) mg/dL 11/06/16 Range/Units 18:19 POC Glucose (mg/dL) 229 H (65-110) mg/dL Laboratory Results - last 24 hr 11/06/16 11/07/16 11/07/16 18:19 01:00 05:41 POC Glucose (mg/dL) 229 H 251 H 251 H 11/07/16 11:38 POC Glucose (mg/dL) 278 H Assessment/Plan (1) Small bowel obstruction Current Visit: Yes Status: Acute Attending/Attestation - Attestation I have personally seen and examined this patient.: Yes I have fully participated in the care of the patient.: Yes I have reviewed all pertinent clinical information: Yes Notes (Text): 11/07/16 17:10 I have seen and examined the patient. Medical records, lab studies, and imaging were reviewed by me and a management plan was formulated on multidisciplinary rounds with resident Dr. Monsalve. I agree with their above documented assessment and plan. Patient has shown minimal changes, but no meaningful improvements. The family is confused and undecided. They want to continue treatment for now, but half-way prognosis is grim. Feeding tube placement is an issue, GI and Surgery discussing. May have to start patient on TPN. Still discussing with family about intermediate frame tender goals of care. Critical Care Time 35 minutes. Multi-disciplinary rounds were performed with house staff, nursing, speech therapy, respiratory therapy, pharmacy and nutrition with integrated input from the primary team/attending and other consulting services. The documented time is cumulative and includes review of patient data/exams/labs/chart review and examination of the patient on rounds and throughout the day; time is exclusive of any procedures or teaching time. 11/07/16 17:10
--- NOTE | 2016-11-07 07:17 | PN ---
DATE: 11/06/2016 SUBJECTIVE: The patient was seen and examined on the bedside. No acute event overnight. The patient still has a trach in place, on the ventilator. Clinically, no change in the status. Review of systems is not obtainable because of the patient's condition. The patient is comatose. PHYSICAL EXAMINATION: VITAL SIGNS: Temperature 98.6, pulse 106, respiratory rate 18 , blood pressure 120 /82. HEENT: Head normocephalic, atraumatic. Eyes are closed. Nose patient. Mucous membranes moist. NECK: Has trach tube. LUNGS: Clear to auscultation. Decreased breath sounds. HEART: S1, S2 positive. Tachycardia. Negative for murmurs. ABDOMEN: Soft. Bowel sounds positive, but distended. PEG tube in place. EXTREMITIES: Positive edema. NEUROLOGIC: The patient is comatose, cannot do neurological examination. MEDICATIONS: Vancomycin, norepinephrine, aztreonam, insulin, Protonix. LABORATORY DATA: Glucose is 187. Hemoglobin 8.3, hematocrit 26.2, white blood cells 12.7. Sodium 149, potassium 3.5, chloride 119. AST 51, ALT 33. ASSESSMENT AND PLAN: The patient is a 61-year-old lady with history of asthma, hypertension, hypercholesterolemia, diabetes mellitus, multiple times ischemic, strokes secondary to septic emboli, probably , meningitis, now had respiratory failure, is intubated, has trach. Has PEG tube placement. Abdomen is distended. Waiting for family's decision to terminate extubation, no improvement from previous notes. The patient is still comatose. CAT scan negative for acute hemorrhage. Gastrointestinal and deep venous thrombosis prophylaxis. Grave prognosis. We will talk to the family more. The patient is in chronic respiratory failure, severe sepsis, heparin subcutaneously. We will follow up. Carmen Maguire MD cc: [id number] TT: 11/06/2016 21:07:23 Confirmation # [id number] Dictation # [id number] jn MTDD
--- NOTE | 2016-11-07 12:43 | CP.PCM.PN ---
Subjective - Date & Time of Evaluation Date of Evaluation: 11/07/16 Time of Evaluation: 12:39 - Subjective Subjective: SURGERY CONSULT NOTE FOR 61F presents to ICU with septic emboli. Patient known to Surgery service from previous tracheostomy and recent consult for dislodged PEG tube. Surgery reconsulted for jejunostomy. Patient has had non-specific mild improvements in clinical symptoms and family has decided to continue full care although poor prognosis. Patient has been fed through the PEG tube after being dislodged and most likely has tube feedings intra-abdominally. PMH: HTN, HLD, DM, Septic emboli PSH: tracheostomy, PEG tube Objective - Vital Signs/Intake and Output Vital Signs (last 24 hours): Temp Pulse Resp BP Pulse Ox 99.2 F 99 H 20 141/67 98 11/07/16 08:00 11/07/16 10:00 11/07/16 10:00 11/07/16 09:47 11/07/16 10:00 Intake and Output: 11/07/16 11/07/16 06:59 18:59 Intake Total 1300 200 Output Total 700 Balance 600 200 - Medications Medications: Current Medications Vancomycin HCl 1,000 mg/ (Sodium Chloride) 250 mls @ 166.6 mls/hr IVPB Q12H MINI Last Admin: 11/05/16 10:08 Dose: 166.6 mls/hr Norepinephrine Bitartrate 8 mg (/ Sodium Chloride) 258 mls @ 7.74 mls/hr IV .Q24H PRN; Protocol; 4 MCG/MIN PRN Reason: TITRATE PER MD ORDER Last Titration: 11/03/16 22:05 Dose: 0 mcg/min, 0 mls/hr Aztreonam 2 gm/ Sodium (Chloride) 100 mls @ 200 mls/hr IVPB Q8H MINI Last Admin: 11/07/16 08:30 Dose: 200 mls/hr Sodium Chloride (Sodium Chloride 0.45%) 1,000 mls @ 100 mls/hr IV .Q10H MINI Last Admin: 11/07/16 00:57 Dose: 100 mls/hr Insulin Aspart (Novolog) 0 unit SC Q6H MINI PRN Reason: Protocol Last Admin: 11/07/16 12:20 Dose: 4 unit Pantoprazole Sodium (Protonix Inj) 40 mg IVP DAILY MINI - Labs Labs: 11/06/16 07:05 11/06/16 07:05 PT 19.6 SECONDS (9.7-12.2) H 11/01/16 21:24 INR 1.7 11/01/16 21:24 APTT 37 SECONDS (21-34) H D 11/01/16 21:24 - Constitutional Appears: Other (Intubuted, unresponsive, random eye movements) - Head Exam Head Exam: ATRAUMATIC - ENT Exam ENT Exam: Mucous Membranes Dry Additional comments: NGT in place - Respiratory Exam Respiratory Exam: Clear to Ausculation Bilateral, NORMAL BREATHING PATTERN Additional comments: intubated - Cardiovascular Exam Cardiovascular Exam: REGULAR RHYTHM, +S1, +S2 - GI/Abdominal Exam GI & Abdominal Exam: Distended, Soft. absent: Firm, Guarding, Rigid Additional comments: does not withdrawal to abdomen palpation, PEG tube in place, but dislodged - Neurological Exam Additional comments: unresponsive, withdrawal to sternal rub - Skin Skin Exam: Dry, Intact, Normal Color, Warm Assessment and Plan - Assessment and Plan (Free Text) Assessment: 61F intubated, with dislodged PEG tube, presents with septic emboli. Surgery consulted for Jejunostomy Plan: Abdominal surgery not recommended due to recent peritonitis from used dislodged PEG tube Recommend GI attempt PEG - Discussed with Dr. Michael Mendoza, PGY1
[2016-11-08] MEDS: (Novolog) Insulin Aspart, Recombinant 100 u/ml 10 ml vial SC SCH ×5 (00:09→18:05)
[2016-11-08] MEDS: Aztreonam 2 GM in Sodium Chloride 0.9% 100 ML IVPB SCH ×3 (00:09→15:54)
[2016-11-08] MEDS: Sodium Chloride 0.45% 1,000 ML IV SCH ×4 (04:24→17:55)
[2016-11-08 06:27] LABS: BASO # 0.1 K/uL (0.0-0.2); BASO % 0.4 % (0.0-2.0); EOS # 0.3 K/uL (0.0-0.7); EOS % 1.8 % (0.0-4.0); HEMATOCRIT 27.9 % (34.0-47.0); LYMPH # 1.7 K/uL (1.0-4.3); LYMPH % 12.1 % (20.0-40.0); MEAN CELL VOLUME 90.6 fL (81.0-99.0); MEAN CORPUSCULAR HEMOGLOBIN 28.2 pg (27.0-31.0); MEAN CORPUSCULAR HGB CONC 31.1 g/dL (33.0-37.0); MEAN PLATELET VOLUME 8.6 fL (7.2-11.7); MONO # 0.5 K/uL (0.0-0.8); MONO % 3.3 % (0.0-10.0); RED CELL DISTRIBUTION WIDTH 15.7 % (11.5-14.5); WHITE BLOOD COUNT 14.3 K/uL (4.8-10.8)
[2016-11-08 06:50] LABS: CHLORIDE 123 mmol/L (98-107); POTASSIUM 3.7 mmol/L (3.6-5.2); SODIUM 152 mmol/L (132-148)
[2016-11-08 06:53] LABS: ALB/GLOB RATIO 0.6 (1.0-2.1); CARBON DIOXIDE 19 mmol/L (22-30); TOTAL PROTEIN 5.7 g/dL (6.3-8.3)
[2016-11-08 06:54] LABS: GLUCOSE,RANDOM 255 mg/dL (65-105)
[2016-11-08 06:55] LABS: ALKALINE PHOSPHATASE 154 U/L (38-126); AST/SGOT 34 U/L (14-36); BILIRUBIN,TOTAL 0.7 mg/dL (0.2-1.3); BLOOD UREA NITROGEN 50 mg/dL (7-17); GFR AFRICAN-AMERICAN > 60
[2016-11-08 06:56] LABS: ALT/SGPT 24 U/L (9-52)
--- NOTE | 2016-11-08 08:07 | PN ---
DATE: 11/07/2016 The patient is a 61-year-old female. The patient seen and examined at the bedside. vice president of software development was on the bedside also. [employer] was on the bedside and patient's nurse was on the bedside also. No acute change happened overnight as per ICU team. The patient has trach in place on vent. The patient 's PEG tube is almost out. Physically, we have to remove that. The patient still has NG tube, suction is minimal. Cannot do review of systems, but patient has blink reflex positive and making some mouth and lips movements, but is not able to follow the commands. PHYSICAL EXAMINATION: VITAL SIGNS: Temperature 99.4, pulse 102, respiratory rate 20, blood pressure 121/70, pulse oximetry 99%. HEENT: Head normocephalic, atraumatic. Eyes PERRLA. Extraocular muscles intact. Conjunctivae clear. Nose patent. Mucous membranes moist. NECK: Has a trach tube. CHEST: Clear to auscultation. Decreased breath sounds. HEART: S1, S2 positive. Tachycardic. ABDOMEN: Distended. PEG tube is in place, but is not working. Physically it is there. EXTREMITIES: Positive edema. NEUROLOGIC: The patient is not able to do. We cannot do complete neurological examination. Motor function, the patient is rolling eyes and making movements of the lips, but is not able to follow the command. MEDICATIONS: Vancomycin, aztreonam, NS, insulin, Protonix. LABORATORIES: We do not have CBC today. Glucose 270, 278. ASSESSMENT AND PLAN: The patient with multiple medical problems, shows minimal changes with no meaningful improvement. Family is confused and undecided. They want to continue treatment for now, but long-term prognosis is grave. Feeding tube placement is an issue. GI and surgery, discussion done with surgery and street inspector. Maybe, we will start patient on total parenteral nutrition. discussing with the family about long-term goals of the care, because putting percutaneous endoscopic gastrostomy tube again is that risky procedure were performed with nursing staff, speech therapy, respiratory therapy and with street inspector. The patient has history of respiratory failure at least for 1 month, percutaneous endoscopic gastrostomy tube dislodgement, history of meningitis, history of multiple cerebrovascular accidents, looks like septic emboli, history of asthma, hypertension, hypercholesterolemia, diabetes mellitus. Waiting for the family to make a decision. Maybe social work msw will talk to the family more. Gastrointestinal and deep vein thrombosis prophylaxis. Will follow up. Carmen Maguire MD cc: [id number] TT: 11/08/2016 08:07:01 Confirmation # [id number] Dictation # [id number] CIARA
--- NOTE | 2016-11-08 08:18 | CP.PCM.CON ---
<Farhad Martinez - Last Filed: 11/08/16 08:40> History of Present Illness - History of Present Illness History of Present Illness: PGY4 GI Fellow Consult Note Patient is a 61yo female with PMHx significant for persistent vegetative state 2 /2 recent bacterial meningitis, asthma, DM, HTN, HLD who presented to the ED with vomiting and abdominal distention. She was previously admitted earlier this month and treated for bacterial meningitis and suffered subsequent severe neurologic damage. She is mechanically vented and has tracheostomy. We were consulted at that time for PEG placement which was performed on 10/22/16. In the interim, the patient has not improved neurologically and remains in a persistent vegetative state. Patient presented this admission with abdominal distention and vomiting and was found to have pneumoperitoneum with free fluid in the abdomen and pelvis. Her PEG tube was noted to terminate in the deep subcutaneous fat of the left upper quadrant. Our service is consulted for evaluation of her PEG tube and reinsertion. The patient's family has been deciding end of life goals and has had meetings with hospice care. At present, they are still unclear as to which option the family and the patient would prefer. We had planned to remove and endoscopically replace the PEG this morning; however, after extensive conversation with the patient's daughter Myra, we have decided to postpone the procedure. Myra states that she is meeting with neurology and ICU staff this afternoon, after which she and her family will make decisions about end of life care. PMHx: See HPI PSHx: C section, D&C, ROBERT FHx: Mother - breast cancer, CVA; Brother - DM Social: Not a smoker, no EtOH use or illicit drug use Review of Systems - Review of Systems Systems not reviewed;Unavailable: Acuity of Condition Past Patient History - Infectious Disease Hx of Infectious Diseases: None - Tetanus Immunizations Tetanus Immunization: Unknown - Past Medical History & Family History Past Medical History?: Yes - Past Social History Smoking Status: Unknown If Ever Smoked - CARDIAC Hx Congestive Heart Failure: Yes Hx Hypercholesterolemia: Yes Hx Hypertension: Yes - PULMONARY Hx Asthma: Yes Hx Chronic Obstructive Pulmonary Disease (COPD): Yes - NEUROLOGICAL Hx Migraine: Yes - HEENT Hx HEENT Problems: Yes (Allergic Rhinitis) - RENAL Hx Chronic Kidney Disease: No - ENDOCRINE/METABOLIC Hx Endocrine Disorders: Yes Hx Diabetes Mellitus Type 2: Yes (FROM EMS) - HEMATOLOGICAL/ONCOLOGICAL Hx Anemia: Yes - INTEGUMENTARY Hx Dermatological Problems: No - MUSCULOSKELETAL/RHEUMATOLOGICAL Hx Arthritis: Yes Hx Falls: No - GASTROINTESTINAL Hx Gastrointestinal Disorders: No - GENITOURINARY/GYNECOLOGICAL Hx Genitourinary Disorders: No - PSYCHIATRIC Hx Anxiety: Yes Hx Depression: Yes Hx Substance Use: No - SURGICAL HISTORY Hx Surgeries: Yes Hx Section: Yes (FROM PRIOVIOUS CHART) Hx Dilation and Curettage: Yes (2013) Other/Comment: D&C (2013) - ANESTHESIA Hx Anesthesia: Yes Hx Anesthesia Reactions: No Hx Malignant Hyperthermia: No Meds Allergies/Adverse Reactions: Allergies Allergy/AdvReac Type Severity Reaction Status Date / Time moxifloxacin HCl Allergy Mild RASH Verified 11/01/16 13:09 [From Avelox] codeine Allergy RASH Verified 11/01/16 13:09 morphine AdvReac RASH Verified 11/01/16 13:09 niacin AdvReac ITCHING Verified 11/01/16 13:09 [From Niaspan Extended-Release] Penicillins AdvReac RASH Verified 11/01/16 13:09 tramadol AdvReac RASH Verified 11/01/16 13:09 - Medications Medications: Current Medications Enoxaparin Sodium (Lovenox) 40 mg SC DAILY [facility] [place] Vancomycin HCl 1,000 mg/ (Sodium Chloride) 250 mls @ 166.6 mls/hr IVPB Q12H [facility] [place] Last Admin: 11/05/16 10:08 Dose: 166.6 mls/hr Norepinephrine Bitartrate 8 mg (/ Sodium Chloride) 258 mls @ 7.74 mls/hr IV .Q24H PRN; Protocol; 4 MCG/MIN PRN Reason: TITRATE PER MD ORDER Last Titration: 11/03/16 22:05 Dose: 0 mcg/min, 0 mls/hr Aztreonam 2 gm/ Sodium (Chloride) 100 mls @ 200 mls/hr IVPB Q8H [facility] [place] Last Admin: 11/08/16 07:47 Dose: 200 mls/hr Sodium Chloride (Sodium Chloride 0.45%) 1,000 mls @ 100 mls/hr IV .Q10H [facility] [place] Last Admin: 11/08/16 07:12 Dose: Not Given Insulin Aspart (Novolog) 0 unit SC Q6H [facility] PRN Reason: Protocol Last Admin: 11/08/16 05:39 Dose: 3 unit Pantoprazole Sodium (Protonix Inj) 40 mg IVP DAILY [facility] Physical Exam - Constitutional Appears: No Acute Distress, Other (obese) Additional comments: intubated with trach to vent, unresponsive to commands - Eye Exam Eye Exam: PERRL. absent: EOMI - ENT Exam ENT Exam: Mucous Membranes Moist - Respiratory Exam Respiratory Exam: Clear to Auscultation Bilateral. absent: Rales, Rhonchi, Wheezes Additional comments: B/L air entry - Cardiovascular Exam Cardiovascular Exam: RRR, +S1, +S2 - GI/Abdominal Exam GI & Abdominal Exam: Normal Bowel Sounds, Soft. absent: Distended, Firm, Organomegaly, Rigid Additional comments: PEG tube in the LUQ - Extremities Exam Extremities exam: Positive for: normal inspection. Negative for: pedal edema - Neurological Exam Additional comments: Unresponsive - Skin Skin Exam: Dry, Warm Additional comments: skin around PEG site mildly erythematous Results - Vital Signs Recent Vital Signs: Last Vital Signs Temp 100.1 F H 11/08/16 05:00 Pulse 103 H 11/08/16 06:47 Resp 20 11/08/16 06:47 BP 127/63 11/08/16 06:47 Pulse Ox 98 11/08/16 06:47 - Labs Result Diagrams: 11/08/16 06:20 11/08/16 06:22 Labs: Laboratory Results - last 24 hr 11/07/16 11/07/16 11/08/16 11:38 17:58 00:06 WBC RBC Hgb Hct MCV MCH MCHC RDW Plt Count MPV Neut % (Auto) Lymph % (Auto) Barry % (Auto) Eos % (Auto) Baso % (Auto) Neut # Lymph # Barry # Eos # Baso # Sodium Potassium Chloride Carbon Dioxide Anion Gap BUN Creatinine Est GFR ( Amer) Est GFR (Non-Af Amer) POC Glucose (mg/dL) 278 H 270 H 240 H Random Glucose Calcium Total Bilirubin AST ALT Alkaline Phosphatase Total Protein Albumin Globulin Albumin/Globulin Ratio 11/08/16 11/08/16 11/08/16 05:22 06:20 06:22 WBC 14.3 H RBC 3.08 L Hgb 8.7 L Hct 27.9 L MCV 90.6 MCH 28.2 MCHC 31.1 L RDW 15.7 H Plt Count 401 H D MPV 8.6 Neut % (Auto) 82.4 H Lymph % (Auto) 12.1 L Barry % (Auto) 3.3 Eos % (Auto) 1.8 Baso % (Auto) 0.4 Neut # 11.8 H Lymph # 1.7 Barry # 0.5 Eos # 0.3 Baso # 0.1 Sodium 152 H Potassium 3.7 Chloride 123 H Carbon Dioxide 19 L Anion Gap 14 BUN 50 H Creatinine 0.8 Est GFR ( Amer) > 60 Est GFR (Non-Af Amer) > 60 POC Glucose (mg/dL) 240 H Random Glucose 255 H Calcium 9.0 Total Bilirubin 0.7 AST 34 ALT 24 Alkaline Phosphatase 154 H Total Protein 5.7 L Albumin 2.2 L Globulin 3.5 Albumin/Globulin Ratio 0.6 L Assessment & Plan - Assessment and Plan (Free Text) Assessment: Patient is a 61yo female with PMHx significant for persistent vegetative state 2 /2 recent bacterial meningitis, asthma, DM, HTN, HLD who presented to the ED with vomiting and abdominal distention. -Persistent vegetative state -Respiratory failure requiring mechanical ventilation -Recent bacterial meningitis -Pneumoperitoneum, R/O peritonitis -Dysphagia as a complication of above requiring PEG tube feeding Plan: -PEG will need to be removed and new PEG placed endoscopically -Were planning to perform this morning; family uncertain as to whether or not they wish to proceed with this procedure and are considering terminal extubation -Consent cannot be obtained at this time -Family meeting planned for today at 230pm with Neurology and ICU staff; goals of care to be discussed -If family wishes to pursue aggressive measures, PEG tube could be placed Friday morning -NPO and as noted, current PEG should not be used - Date & Time Date: 11/08/16 Time: 07:45 <Felix Soto - Last Filed: 11/08/16 12:36> Meds - Medications Medications: Current Medications Enoxaparin Sodium (Lovenox) 40 mg SC DAILY [facility] [place] Last Admin: 11/08/16 10:04 Dose: 40 mg Vancomycin HCl 1,000 mg/ (Sodium Chloride) 250 mls @ 166.6 mls/hr IVPB Q12H [facility] [place] Last Admin: 11/05/16 10:08 Dose: 166.6 mls/hr Norepinephrine Bitartrate 8 mg (/ Sodium Chloride) 258 mls @ 7.74 mls/hr IV .Q24H PRN; Protocol; 4 MCG/MIN PRN Reason: TITRATE PER MD ORDER Last Titration: 11/03/16 22:05 Dose: 0 mcg/min, 0 mls/hr Aztreonam 2 gm/ Sodium (Chloride) 100 mls @ 200 mls/hr IVPB Q8H [facility] Last Admin: 11/08/16 07:47 Dose: 200 mls/hr Sodium Chloride (Sodium Chloride 0.45%) 1,000 mls @ 125 mls/hr IV .Q8H [facility] Insulin Aspart (Novolog) 0 unit SC Q6 [facility] PRN Reason: Protocol Last Admin: 11/08/16 11:32 Dose: 4 unit Pantoprazole Sodium (Protonix Inj) 40 mg IVP DAILY [facility] Last Admin: 11/08/16 10:04 Dose: 40 mg Results - Vital Signs Recent Vital Signs: Last Vital Signs Temp 100.4 F H 11/08/16 08:00 Pulse 101 H 11/08/16 10:09 Resp 19 11/08/16 10:09 BP 146/78 11/08/16 10:00 Pulse Ox 99 11/08/16 10:09 - Labs Result Diagrams: 11/08/16 06:20 11/08/16 06:22 Labs: Laboratory Results - last 24 hr 11/07/16 11/08/16 11/08/16 17:58 00:06 05:22 WBC RBC Hgb Hct MCV MCH MCHC RDW Plt Count MPV Neut % (Auto) Lymph % (Auto) Barry % (Auto) Eos % (Auto) Baso % (Auto) Neut # Lymph # Barry # Eos # Baso # Sodium Potassium Chloride Carbon Dioxide Anion Gap BUN Creatinine Est GFR ( Amer) Est GFR (Non-Af Amer) POC Glucose (mg/dL) 270 H 240 H 240 H Random Glucose Calcium Total Bilirubin AST ALT Alkaline Phosphatase Total Protein Albumin Globulin Albumin/Globulin Ratio Random Vancomycin 11/08/16 11/08/16 11/08/16 06:20 06:22 11:25 WBC 14.3 H RBC 3.08 L Hgb 8.7 L Hct 27.9 L MCV 90.6 MCH 28.2 MCHC 31.1 L RDW 15.7 H Plt Count 401 H D MPV 8.6 Neut % (Auto) 82.4 H Lymph % (Auto) 12.1 L Barry % (Auto) 3.3 Eos % (Auto) 1.8 Baso % (Auto) 0.4 Neut # 11.8 H Lymph # 1.7 Barry # 0.5 Eos # 0.3 Baso # 0.1 Sodium 152 H Potassium 3.7 Chloride 123 H Carbon Dioxide 19 L Anion Gap 14 BUN 50 H Creatinine 0.8 Est GFR ( Amer) > 60 Est GFR (Non-Af Amer) > 60 POC Glucose (mg/dL) Random Glucose 255 H Calcium 9.0 Total Bilirubin 0.7 AST 34 ALT 24 Alkaline Phosphatase 154 H Total Protein 5.7 L Albumin 2.2 L Globulin 3.5 Albumin/Globulin Ratio 0.6 L Random Vancomycin 6.06 11/08/16 11:26 WBC RBC Hgb Hct MCV MCH MCHC RDW Plt Count MPV Neut % (Auto) Lymph % (Auto) Barry % (Auto) Eos % (Auto) Baso % (Auto) Neut # Lymph # Barry # Eos # Baso # Sodium Potassium Chloride Carbon Dioxide Anion Gap BUN Creatinine Est GFR ( Amer) Est GFR (Non-Af Amer) POC Glucose (mg/dL) 279 H Random Glucose Calcium Total Bilirubin AST ALT Alkaline Phosphatase Total Protein Albumin Globulin Albumin/Globulin Ratio Random Vancomycin Attending/Attestation - Attestation I have personally seen and examined this patient.: Yes I have fully participated in the care of the patient.: Yes I have reviewed all pertinent clinical information: Yes Notes (Text): 11/08/16 12:34 61 year old female with h/o persistent vegetative state as a consequence bacterial meningitis, asthma, DM, HTN, HLD, s/p PEG 2 weeks ago, now with buried bumper syndrome. 1. Buried bumper syndrome 2. PEG malfunction Plan: -PEG is in the abdominal wall -recommend antibiotics -family is deciding re: goals of care -do not use PEG at this time -PEG can be replaced friday if desired by the family, however they are considering terminal extubation/comfort measures only -will sign off, please contact us if family decides peg needs replacement
[2016-11-08] MEDS ORDERED: Enoxaparin 40 mg Syringe SC SCH (10:00)
--- NOTE | 2016-11-08 13:03 | CP.CCUPN ---
<BelloLandy - Last Filed: 11/08/16 17:50> CCU Subjective - Physician Review Subjective (Free Text): 11/08/16 17:50 Patient seen and examined at bedside No acute events and patient was afebrile overnight as per nursing Patient has trach in place on vent (75, 8, 14, 550) Patient has some nonspecific mild improvements clinically ROS unobtainable Family meeting was held this afternoon- awaiting family decision regarding disposition. CCU Objective - Vital Signs / Intake & Output Vital Signs (Last 4 hours): Vital Signs Pulse Resp BP Pulse Ox 11/08/16 10:09 101 H 19 99 11/08/16 10:00 102 H 20 146/78 99 Intake and Output (Last 8hrs): Intake & Output 11/07/16 11/08/16 11/08/16 22:59 06:59 14:59 Intake Total 800 900 375 Output Total 550 445 170 Balance 250 455 205 Weight 265 lb Intake: Intake, IV Amount 800 900 375 Right PICC 800 900 375 Oral 0 Output: Gastric Amount 80 20 Left Nares 80 20 Urine 470 425 170 Urethral ([place]) 470 425 170 Stool 0 0 - Physical Exam Head: Positive for: Atraumatic, Normocephalic Pupils: Positive for: Sluggish Mouth: Positive for: Moist Mucous Membranes Neck: Positive for: Other (trach in place) Respiratory/Chest: Positive for: Clear to Auscultation, Decreased Breath Sounds Cardiovascular: Positive for: Normal S1, S2, Tachycardic. Negative for: Murmurs Abdomen: Positive for: Distention, Other (PEG tube in place) Lower Extremity: Positive for: Edema Neurological: Positive for: Other (comatosse). Negative for: CN II-XII Intact, Motor Func Grossly Intact Skin: Positive for: Dry Psychiatric: Negative for: Alert, Oriented x 3 - Medications Active Medications: Active Medications Generic Name Dose Route Start Last Admin Trade Name Freq PRN Reason Stop Dose Admin Enoxaparin Sodium 40 mg 11/08/16 10:00 11/08/16 10:04 Lovenox SC 40 mg DAILY MINI Administration Vancomycin HCl 1,000 mg/ 250 mls @ 166.6 mls/hr 11/02/16 10:00 11/05/16 10:08 Sodium Chloride IVPB 166.6 mls/hr Q12H MINI Administration Norepinephrine Bitartrate 8 mg 258 mls @ 7.74 mls/hr 11/01/16 23:33 11/03/16 22:05 / Sodium Chloride IV 0 mcg/min .Q24H PRN 0 mls/hr TITRATE PER MD ORDER Titration Protocol 4 MCG/MIN Aztreonam 2 gm/ Sodium 100 mls @ 200 mls/hr 11/04/16 08:30 11/08/16 07:47 Chloride IVPB 200 mls/hr Q8H MINI Administration Sodium Chloride 1,000 mls @ 125 mls/hr 11/08/16 09:42 Sodium Chloride 0.45% IV .Q8H MINI Insulin Aspart 0 unit 11/08/16 09:44 11/08/16 11:32 Novolog SC 4 unit Q6 MINI Administration Protocol Pantoprazole Sodium 40 mg 11/08/16 10:00 11/08/16 10:04 Protonix Inj IVP 40 mg DAILY MINI Administration - Patient Studies Lab Studies: Lab Studies 11/08/16 11/08/16 11/08/16 Range/Units 11:26 11:25 06:22 WBC (4.8-10.8) K/uL RBC (3.80-5.20) Mil/uL Hgb (11.0-16.0) g/dL Hct (34.0-47.0) % MCV (81.0-99.0) fL MCH (27.0-31.0) pg MCHC (33.0-37.0) g/dL RDW (11.5-14.5) % Plt Count (130-400) K/uL MPV (7.2-11.7) fL Neut % (Auto) (50.0-75.0) % Lymph % (Auto) (20.0-40.0) % [place] % (Auto) (0.0-10.0) % Eos % (Auto) (0.0-4.0) % Baso % (Auto) (0.0-2.0) % Neut # (1.8-7.0) K/uL Lymph # (1.0-4.3) K/uL [place] # (0.0-0.8) K/uL Eos # (0.0-0.7) K/uL Baso # (0.0-0.2) K/uL Sodium 152 H (132-148) mmol/L Potassium 3.7 (3.6-5.2) mmol/L Chloride 123 H (98-107) mmol/L Carbon Dioxide 19 L (22-30) mmol/L Anion Gap 14 (10-20) BUN 50 H (7-17) mg/dL Creatinine 0.8 (0.7-1.2) MG/DL Est GFR ( Amer) > 60 Est GFR (Non-Af Amer) > 60 POC Glucose (mg/dL) 279 H (65-110) mg/dL Random Glucose 255 H (65-105) mg/dL Calcium 9.0 (8.6-10.4) mg/dl Total Bilirubin 0.7 (0.2-1.3) mg/dL AST 34 (14-36) U/L ALT 24 (9-52) U/L Alkaline Phosphatase 154 H (38-126) U/L Total Protein 5.7 L (6.3-8.3) g/dL Albumin 2.2 L (3.5-5.0) g/dL Globulin 3.5 (2.2-3.9) gm/dL Albumin/Globulin Ratio 0.6 L (1.0-2.1) Random Vancomycin 6.06 ug/mL 11/08/16 11/08/16 11/08/16 Range/Units 06:20 05:22 00:06 WBC 14.3 H (4.8-10.8) K/uL RBC 3.08 L (3.80-5.20) Mil/uL Hgb 8.7 L (11.0-16.0) g/dL Hct 27.9 L (34.0-47.0) % MCV 90.6 (81.0-99.0) fL MCH 28.2 (27.0-31.0) pg MCHC 31.1 L (33.0-37.0) g/dL RDW 15.7 H (11.5-14.5) % Plt Count 401 H D (130-400) K/uL MPV 8.6 (7.2-11.7) fL Neut % (Auto) 82.4 H (50.0-75.0) % Lymph % (Auto) 12.1 L (20.0-40.0) % [place] % (Auto) 3.3 (0.0-10.0) % Eos % (Auto) 1.8 (0.0-4.0) % Baso % (Auto) 0.4 (0.0-2.0) % Neut # 11.8 H (1.8-7.0) K/uL Lymph # 1.7 (1.0-4.3) K/uL [place] # 0.5 (0.0-0.8) K/uL Eos # 0.3 (0.0-0.7) K/uL Baso # 0.1 (0.0-0.2) K/uL Sodium (132-148) mmol/L Potassium (3.6-5.2) mmol/L Chloride (98-107) mmol/L Carbon Dioxide (22-30) mmol/L Anion Gap (10-20) BUN (7-17) mg/dL Creatinine (0.7-1.2) MG/DL Est GFR ( Amer) Est GFR (Non-Af Amer) POC Glucose (mg/dL) 240 H 240 H (65-110) mg/dL Random Glucose (65-105) mg/dL Calcium (8.6-10.4) mg/dl Total Bilirubin (0.2-1.3) mg/dL AST (14-36) U/L ALT (9-52) U/L Alkaline Phosphatase (38-126) U/L Total Protein (6.3-8.3) g/dL Albumin (3.5-5.0) g/dL Globulin (2.2-3.9) gm/dL Albumin/Globulin Ratio (1.0-2.1) Random Vancomycin ug/mL 11/07/16 Range/Units 17:58 WBC (4.8-10.8) K/uL RBC (3.80-5.20) Mil/uL Hgb (11.0-16.0) g/dL Hct (34.0-47.0) % MCV (81.0-99.0) fL MCH (27.0-31.0) pg MCHC (33.0-37.0) g/dL RDW (11.5-14.5) % Plt Count (130-400) K/uL MPV (7.2-11.7) fL Neut % (Auto) (50.0-75.0) % Lymph % (Auto) (20.0-40.0) % [place] % (Auto) (0.0-10.0) % Eos % (Auto) (0.0-4.0) % Baso % (Auto) (0.0-2.0) % Neut # (1.8-7.0) K/uL Lymph # (1.0-4.3) K/uL [place] # (0.0-0.8) K/uL Eos # (0.0-0.7) K/uL Baso # (0.0-0.2) K/uL Sodium (132-148) mmol/L Potassium (3.6-5.2) mmol/L Chloride (98-107) mmol/L Carbon Dioxide (22-30) mmol/L Anion Gap (10-20) BUN (7-17) mg/dL Creatinine (0.7-1.2) MG/DL Est GFR ( Amer) Est GFR (Non-Af Amer) POC Glucose (mg/dL) 270 H (65-110) mg/dL Random Glucose (65-105) mg/dL Calcium (8.6-10.4) mg/dl Total Bilirubin (0.2-1.3) mg/dL AST (14-36) U/L ALT (9-52) U/L Alkaline Phosphatase (38-126) U/L Total Protein (6.3-8.3) g/dL Albumin (3.5-5.0) g/dL Globulin (2.2-3.9) gm/dL Albumin/Globulin Ratio (1.0-2.1) Random Vancomycin ug/mL Laboratory Results - last 24 hr 11/07/16 11/08/16 11/08/16 17:58 00:06 05:22 WBC RBC Hgb Hct MCV MCH MCHC RDW Plt Count MPV Neut % (Auto) Lymph % (Auto) [place] % (Auto) Eos % (Auto) Baso % (Auto) Neut # Lymph # [place] # Eos # Baso # Sodium Potassium Chloride Carbon Dioxide Anion Gap BUN Creatinine Est GFR ( Amer) Est GFR (Non-Af Amer) POC Glucose (mg/dL) 270 H 240 H 240 H Random Glucose Calcium Total Bilirubin AST ALT Alkaline Phosphatase Total Protein Albumin Globulin Albumin/Globulin Ratio Random Vancomycin 11/08/16 11/08/16 11/08/16 06:20 06:22 11:25 WBC 14.3 H RBC 3.08 L Hgb 8.7 L Hct 27.9 L MCV 90.6 MCH 28.2 MCHC 31.1 L RDW 15.7 H Plt Count 401 H D MPV 8.6 Neut % (Auto) 82.4 H Lymph % (Auto) 12.1 L [place] % (Auto) 3.3 Eos % (Auto) 1.8 Baso % (Auto) 0.4 Neut # 11.8 H Lymph # 1.7 [place] # 0.5 Eos # 0.3 Baso # 0.1 Sodium 152 H Potassium 3.7 Chloride 123 H Carbon Dioxide 19 L Anion Gap 14 BUN 50 H Creatinine 0.8 Est GFR ( Amer) > 60 Est GFR (Non-Af Amer) > 60 POC Glucose (mg/dL) Random Glucose 255 H Calcium 9.0 Total Bilirubin 0.7 AST 34 ALT 24 Alkaline Phosphatase 154 H Total Protein 5.7 L Albumin 2.2 L Globulin 3.5 Albumin/Globulin Ratio 0.6 L Random Vancomycin 6.06 11/08/16 11:26 WBC RBC Hgb Hct MCV MCH MCHC RDW Plt Count MPV Neut % (Auto) Lymph % (Auto) [place] % (Auto) Eos % (Auto) Baso % (Auto) Neut # Lymph # [place] # Eos # Baso # Sodium Potassium Chloride Carbon Dioxide Anion Gap BUN Creatinine Est GFR ( Amer) Est GFR (Non-Af Amer) POC Glucose (mg/dL) 279 H Random Glucose Calcium Total Bilirubin AST ALT Alkaline Phosphatase Total Protein Albumin Globulin Albumin/Globulin Ratio Random Vancomycin Fingerstick Blood Sugar Results: 240 Review of Systems - Review of Systems Systems not reviewed;Unavailable: Acuity of Condition Assessment/Plan - Assessment and Plan (Free Text) Assessment: 61yo F PMHx of Asthma, HTN, HLD, DM, with 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 Awaiting family decision on terminal extubation Neuro: -Head CT 11/01: negative for acute hemorrhage- redemonstrated extensive patchy low attenuation changes within deep and subcortical white matter both cerebral hemispheres. In addition more confluent low attenuation changes within the periventricular white matter. These findings are of uncertain etiology though may represent chronic of sequela of ischemia. The possibility of spuerimposed small hyperacute infarct cannot be excluded based on exam. Consider MRI. Mild moderate generalized volume loss unchanged. -minimal Pulm: -Chronic respiratory failure -PRVC via trach (75, 8, 14, 550) CV: -Norepinephrine gtt -1/2 NS @ 100cc/hr Heme: -anemia of critical illness Renal: -Oliguric acute kidney injury -1/2NS @ 100cc/hr Endo: -DM2 -Accucheck and RISS q6h GI: -NPO -CT abdomen showed dislodged PEG tube with probable tube feeds spilled into abdomen. -CT abd/pelvis: moderate pneumoperitoneum and mod free fluid in abdomen and pelvis; pneumoperitoneum is more pronounced in upper abdomen anterior to the stomach and the oral contrast spillage is likely related to the stomach. Gastrostomy tubes terminate in the deep subq fat of the L upper quadrant. Mild dilatation and moderate circumferential mural thickening of the prox jejunal loops which may be related to bursitis however nonspecific enteritis cannot be resolved; cirrhosis of liver and mild splenomegaly; cholelithiasis -Surgery consult for J tube - Dr Rodriguez ID: -Severe sepsis -11/01 Urine culture + S Aureus -11/01 Blood culture: E Faecalis x 1 and Coag neg staph x 1 -Aztreonam 2gm ivpb q8 -Vancomycin 1gm ivpb q12 DVT ppx: SCDs; Lovenox 40mg sc daily GI ppx: protonix 40mg ivp daily [place] for strict I/O's during acute illness Code status: DNR Case discussed with Dr. Janina Monsalve PGY2 <Jack Roa - Last Filed: 11/08/16 18:02> CCU Objective - Vital Signs / Intake & Output Vital Signs (Last 4 hours): Vital Signs Temp Pulse Resp BP Pulse Ox 11/08/16 16:00 99.6 F 96 H 20 99 11/08/16 15:47 98 H 20 146/67 100 11/08/16 14:47 100 H 23 150/68 99 Intake and Output (Last 8hrs): Intake & Output 11/08/16 11/08/16 11/08/16 06:59 14:59 22:59 Intake Total 900 875 287.5 Output Total 445 420 150 Balance 455 455 137.5 Weight 265 lb Intake: Intake, IV Amount 900 875 287.5 Right PICC 900 875 287.5 Output: Gastric Amount 20 Left Nares 20 Urine 425 420 150 Urethral ([place]) 425 420 150 Stool 0 - Medications Active Medications: Active Medications Generic Name Dose Route Start Last Admin Trade Name Freq PRN Reason Stop Dose Admin Enoxaparin Sodium 40 mg 11/08/16 10:00 11/08/16 10:04 Lovenox SC 40 mg DAILY MINI Administration Vancomycin HCl 1,000 mg/ 250 mls @ 166.6 mls/hr 11/02/16 10:00 11/05/16 10:08 Sodium Chloride IVPB 166.6 mls/hr Q12H MINI Administration Norepinephrine Bitartrate 8 mg 258 mls @ 7.74 mls/hr 11/01/16 23:33 11/03/16 22:05 / Sodium Chloride IV 0 mcg/min .Q24H PRN 0 mls/hr TITRATE PER MD ORDER Titration Protocol 4 MCG/MIN Aztreonam 2 gm/ Sodium 100 mls @ 200 mls/hr 11/04/16 08:30 11/08/16 15:54 Chloride IVPB 200 mls/hr Q8H MINI Administration Sodium Chloride 1,000 mls @ 125 mls/hr 11/08/16 09:42 11/08/16 17:55 Sodium Chloride 0.45% IV Not Given .Q8H MINI Insulin Aspart 0 unit 11/08/16 09:44 11/08/16 11:32 Novolog SC 4 unit Q6 MINI Administration Protocol Pantoprazole Sodium 40 mg 11/08/16 10:00 11/08/16 10:04 Protonix Inj IVP 40 mg DAILY MINI Administration - Patient Studies Lab Studies: Lab Studies 11/08/16 11/08/16 11/08/16 Range/Units 17:23 11:26 11:25 WBC (4.8-10.8) K/uL RBC (3.80-5.20) Mil/uL Hgb (11.0-16.0) g/dL Hct (34.0-47.0) % MCV (81.0-99.0) fL MCH (27.0-31.0) pg MCHC (33.0-37.0) g/dL RDW (11.5-14.5) % Plt Count (130-400) K/uL MPV (7.2-11.7) fL Neut % (Auto) (50.0-75.0) % Lymph % (Auto) (20.0-40.0) % [place] % (Auto) (0.0-10.0) % Eos % (Auto) (0.0-4.0) % Baso % (Auto) (0.0-2.0) % Neut # (1.8-7.0) K/uL Lymph # (1.0-4.3) K/uL [place] # (0.0-0.8) K/uL Eos # (0.0-0.7) K/uL Baso # (0.0-0.2) K/uL Sodium (132-148) mmol/L Potassium (3.6-5.2) mmol/L Chloride (98-107) mmol/L Carbon Dioxide (22-30) mmol/L Anion Gap (10-20) BUN (7-17) mg/dL Creatinine (0.7-1.2) MG/DL Est GFR ( Amer) Est GFR (Non-Af Amer) POC Glucose (mg/dL) 258 H 279 H (65-110) mg/dL Random Glucose (65-105) mg/dL Calcium (8.6-10.4) mg/dl Total Bilirubin (0.2-1.3) mg/dL AST (14-36) U/L ALT (9-52) U/L Alkaline Phosphatase (38-126) U/L Total Protein (6.3-8.3) g/dL Albumin (3.5-5.0) g/dL Globulin (2.2-3.9) gm/dL Albumin/Globulin Ratio (1.0-2.1) Random Vancomycin 6.06 ug/mL 11/08/16 11/08/16 11/08/16 Range/Units 06:22 06:20 05:22 WBC 14.3 H (4.8-10.8) K/uL RBC 3.08 L (3.80-5.20) Mil/uL Hgb 8.7 L (11.0-16.0) g/dL Hct 27.9 L (34.0-47.0) % MCV 90.6 (81.0-99.0) fL MCH 28.2 (27.0-31.0) pg MCHC 31.1 L (33.0-37.0) g/dL RDW 15.7 H (11.5-14.5) % Plt Count 401 H D (130-400) K/uL MPV 8.6 (7.2-11.7) fL Neut % (Auto) 82.4 H (50.0-75.0) % Lymph % (Auto) 12.1 L (20.0-40.0) % [place] % (Auto) 3.3 (0.0-10.0) % Eos % (Auto) 1.8 (0.0-4.0) % Baso % (Auto) 0.4 (0.0-2.0) % Neut # 11.8 H (1.8-7.0) K/uL Lymph # 1.7 (1.0-4.3) K/uL [place] # 0.5 (0.0-0.8) K/uL Eos # 0.3 (0.0-0.7) K/uL Baso # 0.1 (0.0-0.2) K/uL Sodium 152 H (132-148) mmol/L Potassium 3.7 (3.6-5.2) mmol/L Chloride 123 H (98-107) mmol/L Carbon Dioxide 19 L (22-30) mmol/L Anion Gap 14 (10-20) BUN 50 H (7-17) mg/dL Creatinine 0.8 (0.7-1.2) MG/DL Est GFR ( Amer) > 60 Est GFR (Non-Af Amer) > 60 POC Glucose (mg/dL) 240 H (65-110) mg/dL Random Glucose 255 H (65-105) mg/dL Calcium 9.0 (8.6-10.4) mg/dl Total Bilirubin 0.7 (0.2-1.3) mg/dL AST 34 (14-36) U/L ALT 24 (9-52) U/L Alkaline Phosphatase 154 H (38-126) U/L Total Protein 5.7 L (6.3-8.3) g/dL Albumin 2.2 L (3.5-5.0) g/dL Globulin 3.5 (2.2-3.9) gm/dL Albumin/Globulin Ratio 0.6 L (1.0-2.1) Random Vancomycin ug/mL 11/08/16 11/07/16 Range/Units 00:06 17:58 WBC (4.8-10.8) K/uL RBC (3.80-5.20) Mil/uL Hgb (11.0-16.0) g/dL Hct (34.0-47.0) % MCV (81.0-99.0) fL MCH (27.0-31.0) pg MCHC (33.0-37.0) g/dL RDW (11.5-14.5) % Plt Count (130-400) K/uL MPV (7.2-11.7) fL Neut % (Auto) (50.0-75.0) % Lymph % (Auto) (20.0-40.0) % [place] % (Auto) (0.0-10.0) % Eos % (Auto) (0.0-4.0) % Baso % (Auto) (0.0-2.0) % Neut # (1.8-7.0) K/uL Lymph # (1.0-4.3) K/uL [place] # (0.0-0.8) K/uL Eos # (0.0-0.7) K/uL Baso # (0.0-0.2) K/uL Sodium (132-148) mmol/L Potassium (3.6-5.2) mmol/L Chloride (98-107) mmol/L Carbon Dioxide (22-30) mmol/L Anion Gap (10-20) BUN (7-17) mg/dL Creatinine (0.7-1.2) MG/DL Est GFR ( Amer) Est GFR (Non-Af Amer) POC Glucose (mg/dL) 240 H 270 H (65-110) mg/dL Random Glucose (65-105) mg/dL Calcium (8.6-10.4) mg/dl Total Bilirubin (0.2-1.3) mg/dL AST (14-36) U/L ALT (9-52) U/L Alkaline Phosphatase (38-126) U/L Total Protein (6.3-8.3) g/dL Albumin (3.5-5.0) g/dL Globulin (2.2-3.9) gm/dL Albumin/Globulin Ratio (1.0-2.1) Random Vancomycin ug/mL Laboratory Results - last 24 hr 11/07/16 11/08/16 11/08/16 17:58 00:06 05:22 WBC RBC Hgb Hct MCV MCH MCHC RDW Plt Count MPV Neut % (Auto) Lymph % (Auto) [place] % (Auto) Eos % (Auto) Baso % (Auto) Neut # Lymph # [place] # Eos # Baso # Sodium Potassium Chloride Carbon Dioxide Anion Gap BUN Creatinine Est GFR ( Amer) Est GFR (Non-Af Amer) POC Glucose (mg/dL) 270 H 240 H 240 H Random Glucose Calcium Total Bilirubin AST ALT Alkaline Phosphatase Total Protein Albumin Globulin Albumin/Globulin Ratio Random Vancomycin 11/08/16 11/08/16 11/08/16 06:20 06:22 11:25 WBC 14.3 H RBC 3.08 L Hgb 8.7 L Hct 27.9 L MCV 90.6 MCH 28.2 MCHC 31.1 L RDW 15.7 H Plt Count 401 H D MPV 8.6 Neut % (Auto) 82.4 H Lymph % (Auto) 12.1 L [place] % (Auto) 3.3 Eos % (Auto) 1.8 Baso % (Auto) 0.4 Neut # 11.8 H Lymph # 1.7 [place] # 0.5 Eos # 0.3 Baso # 0.1 Sodium 152 H Potassium 3.7 Chloride 123 H Carbon Dioxide 19 L Anion Gap 14 BUN 50 H Creatinine 0.8 Est GFR ( Amer) > 60 Est GFR (Non-Af Amer) > 60 POC Glucose (mg/dL) Random Glucose 255 H Calcium 9.0 Total Bilirubin 0.7 AST 34 ALT 24 Alkaline Phosphatase 154 H Total Protein 5.7 L Albumin 2.2 L Globulin 3.5 Albumin/Globulin Ratio 0.6 L Random Vancomycin 6.06 11/08/16 11/08/16 11:26 17:23 WBC RBC Hgb Hct MCV MCH MCHC RDW Plt Count MPV Neut % (Auto) Lymph % (Auto) [place] % (Auto) Eos % (Auto) Baso % (Auto) Neut # Lymph # [place] # Eos # Baso # Sodium Potassium Chloride Carbon Dioxide Anion Gap BUN Creatinine Est GFR ( Amer) Est GFR (Non-Af Amer) POC Glucose (mg/dL) 279 H 258 H Random Glucose Calcium Total Bilirubin AST ALT Alkaline Phosphatase Total Protein Albumin Globulin Albumin/Globulin Ratio Random Vancomycin Assessment/Plan (1) Small bowel obstruction Current Visit: Yes Status: Acute Attending/Attestation - Attestation I have personally seen and examined this patient.: Yes I have fully participated in the care of the patient.: Yes I have reviewed all pertinent clinical information: Yes Notes (Text): 11/08/16 17:59 I have seen and examined the patient. Medical records, lab studies, and imaging were reviewed by me and a management plan was formulated on multidisciplinary rounds with resident Dr. Monsalve. I agree with their above documented assessment and plan. Had a long discussion with the entire family about the patient's poor clinical status. That we have seen no improvement in upper cortical function in over a month and that she most likely will not improve. Awaiting family decision for comfort care vs continued care with replacement of PEG. Critical Care Time 35 minutes. Multi-disciplinary rounds were performed with house staff, nursing, speech therapy, respiratory therapy, pharmacy and nutrition with integrated input from the primary team/attending and other consulting services. The documented time is cumulative and includes review of patient data/exams/labs/chart review and examination of the patient on rounds and throughout the day; time is exclusive of any procedures or teaching time.
--- NOTE | 2016-11-08 14:06 | CP.PCM.PCO ---
Physician Communication Note - Physician Communication Note Physician Communication Note: No Sx: PEG can be replaced by GI if family wishes.
[2016-11-08] MEDS: Morphine Sulfate 250 MG in Dextrose 5% In Water 240 ML IV ONE (19:00)
[2016-11-09] MEDS: Morphine Sulfate 250 MG in Dextrose 5% In Water 240 ML IV ONE (10:35)
--- NOTE | 2016-11-09 14:54 | CP.CCUPN ---
CCU Subjective - Physician Review Events Since Last Encounter (Free Text): 11/09/16 14:53 Patient seen and examined in the intensive care unit. Patient terminally extubated last rnight and started on morphine drip comatose with agonal breathing Continue morphine drip CCU Objective - Vital Signs / Intake & Output Vital Signs (Last 4 hours): Vital Signs Temp Pulse Resp BP Pulse Ox 11/09/16 12:47 119 H 10 L 68/32 L 93 L 11/09/16 12:00 99.4 F 123 H 12 69/33 L 92 L 11/09/16 11:47 123 H 7 L 68/33 L 96 Intake and Output (Last 8hrs): Intake & Output 11/08/16 11/09/16 11/09/16 22:59 06:59 14:59 Intake Total 737.5 215 285 Output Total 475 230 305 Balance 262.5 -15 -20 Weight 268 lb 1.314 oz Intake: IV 30 75 145 Intake, IV Amount 707.5 140 140 R PICC 45 140 140 Right PICC 662.5 Oral 0 0 Output: Gastric Amount 100 250 Left Nares 100 250 Urine 375 230 55 Urethral (S[place]) 375 230 55 - Physical Exam Head: Positive for: Atraumatic, Normocephalic Pupils: Positive for: Sluggish Mouth: Positive for: Moist Mucous Membranes Neck: Positive for: Other (trach in place) Respiratory/Chest: Positive for: Clear to Auscultation, Decreased Breath Sounds Cardiovascular: Positive for: Normal S1, S2, Tachycardic. Negative for: Murmurs Abdomen: Positive for: Distention, Other (PEG tube in place) Lower Extremity: Positive for: Edema Neurological: Positive for: Other (comatosse). Negative for: CN II-XII Intact, Motor Func Grossly Intact Skin: Positive for: Dry Psychiatric: Negative for: Alert, Oriented x 3 - Medications Active Medications: Active Medications Generic Name Dose Route Start Last Admin Trade Name Freq PRN Reason Stop Dose Admin Morphine Sulfate 250 mg/ 250 mls @ 10 mls/hr 11/08/16 18:32 11/09/16 10:35 Dextrose IV 11/09/16 18:31 20 ml/hr .Q24H ONE 20 mls/hr Protocol Administration - Patient Studies Lab Studies: Lab Studies 11/09/16 11/08/16 Range/Units 00:08 17:23 POC Glucose (mg/dL) 239 H 258 H (65-110) mg/dL Laboratory Results - last 24 hr 11/08/16 11/09/16 17:23 00:08 POC Glucose (mg/dL) 258 H 239 H Fingerstick Blood Sugar Results: 258
--- NOTE | 2016-11-09 15:31 | CARD ---
APPROVED REPORT EKG Measurement Heart [id number] <Conclusion> Sinus tachycardia Otherwise normal ECG
[2016-11-09 17:16] VITALS: TEMP 99.8
--- NOTE | 2016-11-09 18:38 | PN ---
DATE: 11/08/2016 SUBJECTIVE: The patient seen and examined on the bedside. No big change in her status. No acute event happened. The patient was afebrile overnight as per nurses information. The patient still has a trach. Is not able to get review of systems. [employer] had a family meeting with the family in the unit and waiting for their opinion. PHYSICAL EXAMINATION: VITAL SIGNS: Pulse of 102, respiratory rate 20, blood pressure 146/78, pulse oximetry 99. The patient is afebrile. HEENT: Head normocephalic, atraumatic. Eyes closed. Nose patent. Mucous membranes are moist. NECK: Has a trach. CHEST: Clear to auscultation. HEART: S1, S2 positive. LUNGS: Poor wheezing. ABDOMEN: Nondistended. EXTREMITIES: Positive edema. NEUROLOGIC: The patient is comatose, opening eyes once in a while. Cannot give eye contact. Does not obey commands. LABORATORY DATA: White blood cells 14.3, hemoglobin 8.7, hematocrit 27.9, and platelets 401. Sodium 152, potassium 3.7, BUN 50, creatinine 0.8, and glucose 258. 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 A detailed discussion done with the family. Meeting was held today 11/08, with the steel rule die maker apprentice Dr. Roa and Neurologist Waiting for family's decision on terminal extubation. GI and DVT prophylaxis. Will repeat labs. Will followup. Carmen Maguire MD cc: [id number] TT: 11/08/2016 22:15:32 Confirmation # [id number] Dictation # [id number] dn 11/09/2016 17:37:43 CIARA
[2016-11-09 18:40] VITALS: RESP 14
[2016-11-09 19:37] VITALS: BP 50/27; PULSE 100
--- NOTE | 2016-11-09 19:59 | CP.PCM.PRO ---
Pronouncement of Note - Clinical Findings Physical Exam: No Response Verbal/Painful Stimuli, Absent Peripheral Pulses{ Carotid & Femoral}, Absent Heart & Breath Sounds, No Pupillary Light Reflex, No Corneal Reflex, Pupils Fixed & Dilated, Absence of Vital Signs - Notifications Pronouncement Notifications: Family Notified, Atending Notified Dry Plasterer Notified: No - Autopsy Autopsy Requested: No [place]: [id number] Additional Comments: The Patient is a DNR
[2016-11-10 18:09] VITALS: O2SAT 94
== END 2016-11-09 19:35 | DRG 584 ==
LOC: C.ER 12:53 → C.9I 16:22
PROVIDERS: ADMIT Internal Medicine; ATTEND Internal Medicine
PROC: 5A1955Z Respiratory Ventilation, Greater than 96 Consecutive Hours (ICD-10-PCS; principal; 2016-11-01)
DX: A41.81 Sepsis due to Enterococcus (principal); N17.9 Acute kidney failure, unspecified; I76 Septic arterial embolism; G00.9 Bacterial meningitis, unspecified; Z99.11 Dependence on respirator [ventilator] status; J96.10 Chronic respiratory failure, unspecified whether with hypoxia or hypercapnia; K56.7 Ileus, unspecified; K94.29 Other complications of gastrostomy; I50.9 Heart failure, unspecified; E11.65 Type 2 diabetes mellitus with hyperglycemia; E87.5 Hyperkalemia; J44.9 Chronic obstructive pulmonary disease, unspecified; E87.6 Hypokalemia; I11.0 Hypertensive heart disease with heart failure; N39.0 Urinary tract infection, site not specified; D64.9 Anemia, unspecified; R65.20 Severe sepsis without septic shock; E86.0 Dehydration; F32.9 Major depressive disorder, single episode, unspecified; E78.5 Hyperlipidemia, unspecified; F41.9 Anxiety disorder, unspecified; E78.00 Pure hypercholesterolemia, unspecified; E83.51 Hypocalcemia; E83.39 Other disorders of phosphorus metabolism; Y83.3 Surgical operation with formation of external stoma as the cause of abnormal reaction of the patient, or of later complication, without mention of misadventure at the time of the procedure; Z66 Do not resuscitate; Z86.73 Personal history of transient ischemic attack (TIA), and cerebral infarction without residual deficits; D47.3 Essential (hemorrhagic) thrombocythemia; Z79.4 Long term (current) use of insulin